=== PATIENT | female | born 1995 | race Hispanic/Latino ===

== ENCOUNTER 2020-12-31 06:17 | Outpatient (CLI) | payer OTHER, MEDICAID, SELFPAY ==
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
== END 2020-12-31 07:02 | disposition home or self-care (01) ==
LOC: LABOR 06:49 → OB 01-01 14:49
PROVIDERS: Referring Provider Specialist; Visit Provider Specialist
DX: O26.893 Other specified pregnancy related conditions, third trimester (principal); R10.10 Upper abdominal pain, unspecified; M54.89 Other dorsalgia; R07.9 Chest pain, unspecified; Z3A.30 30 weeks gestation of pregnancy; V49.9XXD Car occupant (driver) (passenger) injured in unspecified traffic accident, subsequent encounter
CPT/HCPCS: 59025; G0378; G0379

== ENCOUNTER 2020-12-31 06:52 | Emergency (ER) | payer OTHER, MEDICAID, SELFPAY ==
[2020-12-31 06:57] VITALS: BP 121/59; PULSE 89; O2SAT 98
[2020-12-31 07:00] VITALS: BP 121/59; PULSE 87; PULSE 90; RESP 24; TEMP 36.4; O2SAT 97; O2SAT 98; BMI 30.9
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
[2020-12-31] MEDS: MAG HYDROX/ALUMINUM/SIMETH SUS 20 ML, LIDOCAINE VISCOUS 2% 15 ML PO (07:10)
[2020-12-31] MEDS: PANTOPRAZOLE 40 MG VIAL IV (07:11)
[2020-12-31 07:30] VITALS: PULSE 77; O2SAT 96
[2020-12-31 07:34] LABS: Add Manual Diff / Slide Review NO; Basophils Absolute Auto 0 /uL (0-100); Basophils Percent Auto 0.5 % (0-2); Eosinophils Absolute Auto 100 /uL (0-450); Eosinophils Percent Auto 1.3 % (2-4); Hematocrit 32.5 % (36-46); Hemoglobin 11.2 g/dL (12.0-16.0); Lymphocytes Absolute Auto 1600 /uL (1100-4500); Lymphocytes Percent Auto 16.7 % (25-40); Mean Corpuscular HGB Conc 34.6 % (30-36); Mean Corpuscular Hemoglobin 29.8 PG (26-34); Mean Corpuscular Volume 86.2 fL (80-100); Monocytes Absolute Auto 600 /uL (0-900); Neutrophils Absolute Auto 7200 /uL (1500-7000); Neutrophils Percent Auto 75.5 % (50-75); Platelet Count 231 X10^3/uL (150-400); Red Blood Cell Count 3.77 X10^6/uL (4.0-5.2); Red Cell Distribution Width 12.8 % (11.6-14.8); White Blood Cell Count 9.5 X10^3/uL (4.5-11.0)
[2020-12-31 07:47] LABS: Alanine Aminotransferase 39 IU/L (<35); Albumin 3.7 g/dL (3.5-5.0); Albumin Globulin Ratio 1.2 (1.0-2.8); Alkaline Phosphatase 81 U/L (38-126); Aspartate Aminotransferase 112 IU/L (14-36); BUN Creatinine Ratio 11.6 (6-22); Bilirubin Total 0.5 mg/dL (0.2-1.3); Blood Urea Nitrogen 5 mg/dL (7-17); Carbon Dioxide 24 mmol/L (22-32); Chloride 104 mmol/L (98-107); Estimated Glomerular Filt Rate > 60.0 mL/min (>60); Glucose 100 mg/dL (70-100); HEMOLYSIS < 15 (0-50); Lipase 95 U/L (23-300); Potassium 3.6 mmol/L (3.4-5.1); Sodium 134 mmol/L (137-145); Total Protein 6.7 g/dL (6.3-8.2)
--- NOTE | 2020-12-31 07:52 | DI.US.S_ITS ---
PROCEDURE: US ABDOMEN LIMITED INDICATIONS: RIGHT UPPER QUADRANT PAIN TECHNIQUE: Real-time focused scanning was performed of the abdomen, with image documentation. COMPARISON: None. FINDINGS: The liver is normal in size and demonstrates no focal lesions. There is a mobile 7 mm gallstone seen. The gallbladder wall is not thickened, measuring 3 mm or less. No specific pericholecystic fluid is seen. The sonographic De Souza sign is negative. There is no biliary dilatation, the common bile duct measures 4 mm. No significant pancreatic abnormality is seen on these images. This patient is , with a measured heart rate of 124 beats per minute. IMPRESSION: A single mobile gallstone is seen, yet without additional sonographic signs of cholecystitis. Negative for biliary dilatation. Please correlate with physical examination findings, patient presentation, and laboratory values. Dictated by: Santi Nieves M.D. on 12/31/2020 at 8:03 Approved by: Santi Nieves M.D. on 12/31/2020 at 8:03
[2020-12-31 08:00] VITALS: PULSE 73; O2SAT 98
[2020-12-31 08:30] VITALS: PULSE 75; O2SAT 97
[2020-12-31 09:56] VITALS: BP 111/59; PULSE 85; RESP 18; O2SAT 96
== END 2020-12-31 09:58 | disposition home or self-care (01) ==
PROVIDERS: Emergency Provider Emergency Medicine
DX: O99.613 Diseases of the digestive system complicating pregnancy, third trimester (principal); K80.20 Calculus of gallbladder without cholecystitis without obstruction; Z3A.30 30 weeks gestation of pregnancy
CPT/HCPCS: 36415; 59025; 76705; 80053; 83690; 85025; 93005; 96374; 99284; G0378; C9113; G0379

== ENCOUNTER 2022-10-16 17:23 | Inpatient (IN) | payer OTHER, MEDICAID, SELFPAY ==
[2022-10-16] VITALS (13 sets, daily range): BP systolic 115–117; BP diastolic 73–85; PULSE 108–135; RESP 18–24; TEMP 36.6; O2SAT 91–100; BMI 25.1
[2022-10-16] MEDS: ONDANSETRON 4 MG/2 ML INJ IV ×2 (17:57→21:01)
--- NOTE | 2022-10-16 18:15 | DI.CT.S_ITS ---
PROCEDURE: CT ABDOMEN PELVIS W CON INDICATIONS: pain distended TECHNIQUE: After the administration of intravenous contrast, axial sections acquired from the lung bases to the pubic symphysis. Coronal and sagittal reformats were performed. For radiation dose reduction, the following was used: automated exposure control, adjustment of mA and/or kV according to patient size. COMPARISON: None. FINDINGS: Image quality: Good Lower chest: No basal consolidations or effusions. Nonspecific distal esophageal wall thickening. Solid organs: Perfusion heterogeneity of the liver. Cholelithiasis. Gallbladder is mildly distended. No pathologic dilation of the biliary tree or pancreatic duct. No splenomegaly. No adrenal nodules. No hydronephrosis. Vessels and lymph nodes: The main portal vein is somewhat compressed, but likely patent. There are indeterminate borderline retroperitoneal lymph nodes. Bowel and peritoneum: No bowel obstruction. There is serosal thickening. The bowel appears adhesed to the mesenteric root. There is ascites with peritoneal thickening and suspected omental caking. The gastric wall is thickened. Body wall: Unremarkable Pelvis: Prominent appearance of the bilateral ovaries. Uterus is unremarkable. Prominent Whit adnexal vessels. Bones: No acute or suspicious osseous finding. IMPRESSION: Ascites, peritoneal thickening, and suspected omental caking suspicious for peritoneal spread of a GI or adenocarcinoma. Moderate gastric wall thickening. Possible serosal bowel implants. Bowel is adhesed to the mesenteric root, without acute obstruction at this time. There also prominent appearance of the bilateral ovaries, which may be physiologic, with differential including Krukenberg deposits in this clinical context. Cholelithiasis. Mildly distended gallbladder. Consider ultrasound correlation. Dictated by: Glenn Gaines M.D. on 10/16/2022 at 20:22 Approved by: Glenn Gaines M.D. on 10/16/2022 at 20:31
[2022-10-16 18:17] LABS: Add Manual Diff / Slide Review NO; Basophils Absolute Auto 0 /uL (0-100); Basophils Percent Auto 0.5 % (0-2); Eosinophils Absolute Auto 0 /uL (0-450); Eosinophils Percent Auto 0.4 % (2-4); Hematocrit 37.2 % (36-46); Hemoglobin 12.1 g/dL (12.0-16.0); Lymphocytes Absolute Auto 900 /uL (1100-4500); Lymphocytes Percent Auto 10.1 % (25-40); Mean Corpuscular HGB Conc 32.5 % (30-36); Mean Corpuscular Hemoglobin 23.8 PG (26-34); Mean Corpuscular Volume 73.5 fL (80-100); Monocytes Absolute Auto 500 /uL (0-900); Monocytes Percent Auto 5.3 % (3-14); Neutrophils Absolute Auto 7400 /uL (1500-7000); Neutrophils Percent Auto 83.7 % (50-75); Platelet Count 436 X10^3/uL (150-400); Red Blood Cell Count 5.06 X10^6/uL (4.0-5.2); Red Cell Distribution Width 14.5 % (11.6-14.8); White Blood Cell Count 8.8 X10^3/uL (4.5-11.0)
[2022-10-16 18:20] LABS: Alanine Aminotransferase 26 IU/L (<35); Albumin Globulin Ratio 1.2 (1.0-2.8); Alkaline Phosphatase 108 U/L (38-126); Aspartate Aminotransferase 29 IU/L (14-36); Bilirubin Total 0.8 mg/dL (0.2-1.3); Blood Urea Nitrogen 9 mg/dL (7-17); Calcium 9.2 mg/dL (8.4-10.2); Carbon Dioxide 22 mmol/L (22-32); Chloride 97 mmol/L (98-107); Estimated Glomerular Filt Rate > 60 mL/min (>60); Globulin 3.4 g/dL (1.7-4.1); Glucose 107 mg/dL (70-100); HEMOLYSIS < 15 (0-50); Lipase 202 U/L (23-300); Potassium 3.5 mmol/L (3.4-5.1); Sodium 135 mmol/L (137-145); Total Protein 7.4 g/dL (6.3-8.2)
[2022-10-16] MEDS: MORPHINE 2 MG/ML INJ IV ×3 (18:20→23:30)
[2022-10-16 18:21] LABS: Lactate (Lactic Acid) 0.9 mmol/L (0.7-2.1)
[2022-10-16 18:24] LABS: Pregnancy Test Serum,Qual Negative (Negative)
--- NOTE | 2022-10-16 18:27 | ED_ITS ---
HPI - Abdominal Pain General Chief Complaint: Abdominal Pain Stated Complaint: ABD pain, SOB Time Seen by Provider: 10/16/22 18:09 Source: patient Mode of arrival: Ambulatory History of Present Illness HPI narrative: Patient is a healthy 27-year-old female who presents with abdominal pain ongoing for the last 2 months. She says that she is been seen at the [facility] and ever it numerous times she is been put on Dulcolax and Senokot along with Carafate and Zofran. She says over last 5 days she is been unable to work her abdominal pain is getting worse. She says she is lost over 20 lb in last 2 months because she can not eat. She is drinking fluids Pedialyte Gatorade and water however food makes her extremely nauseous. She is sometimes having bowel movements sometimes not her abdomen is she is getting increasingly more d istended and painful. She denies any fever or chills. She sometimes feels like she is short of breath due to the pain. She is no prior surgeries. She denies any chance of . Related Data Home Medications Medication Instructions Recorded Confirmed docusate sodium 100 mg capsule 100 mg PO BID 10/16/22 10/16/22 ondansetron HCl 4 mg tablet 4 mg PO Q8H 10/16/22 10/16/22 sennosides 8.6 mg tablet (senna) 8.6 mg PO DAILY 10/16/22 10/16/22 sucralfate 1 gram tablet 1 g PO 4XD 10/16/22 10/16/22 Allergies Allergy/AdvReac Type Severity Reaction Status Date / Time No Known Drug Allergies Allergy Verified 10/16/22 17:29 Review of Systems Review of Systems ROS Unobtainable: All systems reviewed & are unremarkable except as noted in HPI and below Patient History Medical History Healthy adult Social History Smoking Status: Former smoker Smoking Status: Former smoker tobacco type: vaping Substance Use Type: does not use Exam Initial Vital Signs Initial Vital Signs: Vital Signs Temperature 98 F 10/16/22 17:29 Pulse Rate 135 H 10/16/22 17:29 Respiratory Rate 18 10/16/22 17:29 Blood Pressure 116/85 10/16/22 17:29 Pulse Oximetry 100 10/16/22 17:29 Oxygen Delivery Method 10/16/22 17:29 GENERAL: Alert 27-year-old female appears uncomfortable HEENT: Head atraumatic,EOMI, pupils reactive, face symmetric, moist mucous membranes CARDIOVASCULAR: Tachycardic regular RESPIRATORY: Breath sounds equal bilaterally, no wheezes rales or rhonchi. ABDOMEN: Distended diffusely tender all over including epigastric region and lower abdominal EXTREMITIES: Normal range of motion, no clubbing or edema. Neurovascularly intact NEUROLOGICAL: Alert and oriented x4.Normal gait and speech. SKIN: Warm, dry, no laceration, no petechiae, no rashes or lesions. Course Orders Ordered: ED Orders 10/16/22 17:41 EKG-12 Lead Stat 10/16/22 17:50 Alpha Fetoprotein Stat CEA [Carcinoembryonic Antigen] Stat Cancer (Carbohydrate) Ag 19-9 Stat Cancer Antigen 125 Stat Complete Blood Count AUTO DIFF Stat Comprehensive Metabolic Panel Stat Lactate (Lactic Acid) Stat Lipase Stat Test Serum,Qual Stat 10/16/22 18:15 CT abdomen pelvis w con Stat 10/16/22 20:20 Ictotest Urine Stat Urinalysis and Microscopic Stat Hydromorphone HCl (Hydromorphone 1 Mg Inj) 1 mg IV Q4H PRN PRN Reason: Pain, Severe (7-10) Dextrose/Sodium Chloride (Dextrose 5%-0.9% Ns) 1,000 mls @ 60 mls/hr IV CONT HANNAH Last Admin: 10/16/22 23:55 Dose: 60 mls/hr Documented By: RICHARD Naloxone HCl (Naloxone 0.4 Mg/Ml Vial) 0.2 mg IV Q2MIN PRN PRN Reason: Opiate Reversal Ondansetron HCl (Ondansetron 4 Mg Odt) 4 mg PO NOW PRN PRN Reason: Nausea And Vomiting Ondansetron HCl (Ondansetron 4 Mg/2 Ml Inj) 4 mg IV NOW PRN PRN Reason: Nausea And Vomiting Last Admin: 10/16/22 17:57 Dose: 4 mg Documented By: SELAM Ondansetron HCl (Ondansetron 4 Mg/2 Ml Inj) 4 mg IV Q4HR PRN PRN Reason: Nausea And Vomiting Oxycodone HCl (Oxycodone Ir 10 Mg Tablet) 10 mg PO Q3H PRN PRN Reason: Pain, Severe (7-10) Oxycodone HCl (Oxycodone Ir 5 Mg Tablet) 5 mg PO Q3H PRN PRN Reason: Pain, Moderate (4-6) Discontinued Medications Morphine Sulfate (Morphine 2 Mg/Ml Inj) 2 mg IV NOW ONE Stop: 10/16/22 18:16 Last Admin: 10/16/22 18:20 Dose: 2 mg Documented By: RICK Morphine Sulfate (Morphine 2 Mg/Ml Inj) 2 mg IV NOW ONE Stop: 10/16/22 20:55 Last Admin: 10/16/22 21:02 Dose: 2 mg Documented By: RICHARD Morphine Sulfate (Morphine 2 Mg/Ml Inj) 2 mg IV NOW ONE Stop: 10/16/22 23:25 Last Admin: 10/16/22 23:30 Dose: 2 mg Documented By: RICHARD Ondansetron HCl (Ondansetron 4 Mg/2 Ml Inj) 4 mg IV NOW ONE Stop: 10/16/22 20:57 Last Admin: 10/16/22 21:01 Dose: 4 mg Documented By: RICHARD Vital Signs Vital signs: Vital Signs - 8 hr 10/16/22 18:08 10/16/22 18:08 10/16/22 18:36 Pulse Rate 121 H 115 H Respiratory Rate 24 Blood Pressure 116/83 Pulse Oximetry 100 100 Oxygen Delivery Method Room Air 10/16/22 19:00 10/16/22 19:05 10/16/22 19:05 Pulse Rate 120 H 116 H Respiratory Rate 24 Blood Pressure 117/73 Pulse Oximetry 100 100 Oxygen Delivery Method Room Air 10/16/22 19:30 10/16/22 19:30 10/16/22 21:00 Pulse Rate 112 H 108 H Respiratory Rate Blood Pressure 117/81 Pulse Oximetry 100 91 Oxygen Delivery Method 10/16/22 21:07 10/16/22 21:07 10/16/22 21:30 Pulse Rate 117 H 118 H Respiratory Rate Blood Pressure 115/76 Pulse Oximetry 100 100 Oxygen Delivery Method MDM - Abdominal Pain Lab Data 10/16/22 17:50 10/16/22 17:50 Labs: Lab Results 10/16/22 10/16/22 10/16/22 Range/Units 17:50 17:50 17:50 WBC 8.8 (4.5-11.0) X10^3/uL RBC 5.06 (4.0-5.2) X10^6/uL Hgb 12.1 (12.0-16.0) g/dL Hct 37.2 (36-46) % MCV 73.5 L (80-100) fL MCH 23.8 L (26-34) PG MCHC 32.5 (30-36) % RDW 14.5 (11.6-14.8) % Plt Count 436 H (150-400) X10^3/uL Neut % (Auto) 83.7 H (50-75) % Lymph % (Auto) 10.1 L (25-40) % [place] % (Auto) 5.3 (3-14) % Eos % (Auto) 0.4 L (2-4) % Baso % (Auto) 0.5 (0-2) % Neut # (Auto) 7400 H (7911-1021) /uL Lymph # (Auto) 900 L (1352-8887) /uL [place] # (Auto) 500 (0-900) /uL Eos # (Auto) 0 (0-450) /uL Baso # (Auto) 0 (0-100) /uL Sodium 135 L (137-145) mmol/L Potassium 3.5 (3.4-5.1) mmol/L Chloride 97 L (98-107) mmol/L Carbon Dioxide 22 (22-32) mmol/L BUN 9 (7-17) mg/dL Creatinine 0.60 (0.52-1.04) mg/dL Estimated GFR > 60 (>60) mL/min BUN/Creatinine Ratio 15.0 (6-22) Glucose 107 H (70-100) mg/dL Lactate 0.9 (0.7-2.1) mmol/L Calcium 9.2 (8.4-10.2) mg/dL Total Bilirubin 0.8 (0.2-1.3) mg/dL AST 29 (14-36) IU/L ALT 26 (<35) IU/L Alkaline Phosphatase 108 (38-126) U/L Total Protein 7.4 (6.3-8.2) g/dL Albumin 4.0 (3.5-5.0) g/dL Globulin 3.4 (1.7-4.1) g/dL Albumin/Globulin Ratio 1.2 (1.0-2.8) Lipase 202 (23-300) U/L Carcinoembryonic Ag (0.1-3.0) ng/mL CA 125 Antigen (0-35) U/mL Serum , Qual (Negative) Urine Color Urine Appearance Urine pH (4.5-8.0) Ur Specific [place] (1.000-1.035) Urine Protein (Negative) Urine Glucose (UA) (Negative) g/dL Urine Ketones (NEGATIVE) Urine Occult Blood (Negative) Urine Nitrate (Negative) Urine Bilirubin (NEGATIVE) Ur Bilirubin Confirm (Negative) Urine Urobilinogen (0.2) E.U./dL Ur Leukocyte Esterase (NEGATIVE) Urine RBC (0-5/HPF) Urine WBC (0-5/HPF) Ur Squamous Epith Cells (0-5/HPF) Urine Bacteria (None) Ur Culture Indicated? 10/16/22 10/16/22 10/16/22 Range/Units 17:50 17:50 20:20 WBC (4.5-11.0) X10^3/uL RBC (4.0-5.2) X10^6/uL Hgb (12.0-16.0) g/dL Hct (36-46) % MCV (80-100) fL MCH (26-34) PG MCHC (30-36) % RDW (11.6-14.8) % Plt Count (150-400) X10^3/uL Neut % (Auto) (50-75) % Lymph % (Auto) (25-40) % [place] % (Auto) (3-14) % Eos % (Auto) (2-4) % Baso % (Auto) (0-2) % Neut # (Auto) (6889-9060) /uL Lymph # (Auto) (7446-4044) /uL [place] # (Auto) (0-900) /uL Eos # (Auto) (0-450) /uL Baso # (Auto) (0-100) /uL Sodium (137-145) mmol/L Potassium (3.4-5.1) mmol/L Chloride (98-107) mmol/L Carbon Dioxide (22-32) mmol/L BUN (7-17) mg/dL Creatinine (0.52-1.04) mg/dL Estimated GFR (>60) mL/min BUN/Creatinine Ratio (6-22) Glucose (70-100) mg/dL Lactate (0.7-2.1) mmol/L Calcium (8.4-10.2) mg/dL Total Bilirubin (0.2-1.3) mg/dL AST (14-36) IU/L ALT (<35) IU/L Alkaline Phosphatase (38-126) U/L Total Protein (6.3-8.2) g/dL Albumin (3.5-5.0) g/dL Globulin (1.7-4.1) g/dL Albumin/Globulin Ratio (1.0-2.8) Lipase (23-300) U/L Carcinoembryonic Ag < 0.3 (0.1-3.0) ng/mL CA 125 Antigen 310 H (0-35) U/mL Serum , Qual Negative (Negative) Urine Color Red Urine Appearance Sl cloudy Urine pH 7.0 (4.5-8.0) Ur Specific [place] <=1.005 (1.000-1.035) Urine Protein Negative (Negative) Urine Glucose (UA) Negative (Negative) g/dL Urine Ketones 2+ H (NEGATIVE) Urine Occult Blood 3+ H (Negative) Urine Nitrate Negative (Negative) Urine Bilirubin 1+ H (NEGATIVE) Ur Bilirubin Confirm Negative (Negative) Urine Urobilinogen 1.0 (0.2) E.U./dL Ur Leukocyte Esterase Negative (NEGATIVE) Urine RBC 30-100/hpf H (0-5/HPF) Urine WBC None seen (0-5/HPF) Ur Squamous Epith Cells None seen (0-5/HPF) Urine Bacteria None seen (None) Ur Culture Indicated? Cult not indicated Point of care testing: Urine Dip Bedside Urine Glucose Negative Bedside Urine Bilirubin - Negative Bedside Urine Ketone + 15 Urine Specific [place] 1.005 Bedside Urine Occult Blood +++ Bedside Urine pH 6.5 Bedside Urine Protein +/- 15 Bedside Urine Urobilinogen - Negative Bedside Urine Nitrite - Negative Bedside Urine Leukocytes - Negative Esterase Imaging Data CT scan - abdomen/pelvis: Radiologist's Impression: CT Scan Report Signed Patient: Niecy Laguerre MR#: [id number] : 1995 Acct:[id number] Age/Sex: 27 / F Date of Service: 10/16/22 Loc: ED Accession Number: [id number] ?? Procedure: CT abdomen pelvis w con Ordering Provider: Charu Ko D.O. PROCEDURE:? CT ABDOMEN PELVIS W CON ? INDICATIONS:? pain distended ? TECHNIQUE:? After the administration of intravenous contrast, axial sections acquired from the lung bases to the pubic symphysis.? Coronal and sagittal reformats were performed.? For radiation dose reduction, the following was used:? automated exposure control, adjustment of mA and/or kV according to patient size.? ? COMPARISON:? None. ? FINDINGS:? Image quality:? Good ? Lower chest:? No basal consolidations or effusions.? Nonspecific distal esophageal wall thickening. ? Solid organs:? Perfusion heterogeneity of the liver.? Cholelithiasis.? Gallbladder is mildly distended.? No pathologic dilation of the biliary tree or pancreatic duct.? No splenomegaly.? No adrenal nodules.? No hydronephrosis. ? Vessels and lymph nodes:? The main portal vein is somewhat compressed, but likely patent. ?There are indeterminate borderline retroperitoneal lymph nodes. ? Bowel and peritoneum:? No bowel obstruction.? There is serosal thickening.? The bowel appears adhesed to the mesenteric root.? There is ascites with peritoneal thickening and suspected omental caking.? The gastric wall is thickened. ? Body wall:? Unremarkable ? Pelvis:? Prominent appearance of the bilateral ovaries.? Uterus is unremarkable.? Prominent Whit adnexal vessels. ? Bones:? No acute or suspicious osseous finding.? ? ? IMPRESSION:? Ascites, peritoneal thickening, and suspected omental caking suspicious for peritoneal spread of a GI or adenocarcinoma.? Moderate gastric wall thickening.? Possible serosal bowel implants.? Bowel is adhesed to the mesenteric root, without acute obstruction at this time.? There also prominent appearance of the bilateral ovaries, which may be physiologic, with differential including Krukenberg deposits in this clinical context.? ? Cholelithiasis.? Mildly distended gallbladder.? Consider ultrasound correlation.? ? Dictated by: Glenn Gaines M.D. on 10/16/2022 at 20:22 ? ? Approved by: Glenn Gaines M.D. on 10/16/2022 at 20:31 ? ECG Data Interpretation: Sinus tachycardia rate 108 persistent T-wave inversion in lead 3 seen on previous EKG no ST changes no Q-waves MDM Narrative Medical decision making narrative: Patient 27-year-old healthy female presents ongoing abdominal pain worsening distension she is very tender on exam in tachycardic. Blood work is surprisingly within normal limits without leukocytosis or elevated lactate. CT however is certainly concerning for or GI adenocarcinoma and omental caking. The patient also reports that she has had bilateral breast lumps that are tender to touch she had an abnormal mammogram and is scheduled for further evaluation this. She reports that dad of some sort of gastric cancer at the age of 45. She is given 1 L of IV fluids and pain medication she remains persistently tachycardic, she is not really tolerating food. She also has pretty poor follow-up she is been going to a clinic which has been unable to schedule her or get the appropriate tests. Dr. Buenrostro on-call surgery updated on patient's symptoms and test results agrees that patient should be brought in for fluid resuscitation and pain control. Nothing surgical at this time but does suggest diagnostic and therapeutic paracentesis which may be helpful. He is happy to consult and will contact Oncology in the morning. Agrees with adding cancer markers Akila Stallworth updated on patient's test results and symptoms and kindly accept CA 125 is greater than 300 will CEA is undetectable. Other markers are pending and send out. Long discussion with patient she is a mother of a 6-year-old and 1-year-old she is good support from her brother and [id number] she is given resources Discharge Plan Departure Patient Disposition: Admitted as Observation Clinical Impression: Ascites, malignant, Intractable abdominal pain Admit Date/Time: 10/16/22 22:30 Admit Provider: Akila Stallworth
[2022-10-16 21:19] LABS: Appearance Urine UA SL CLOUDY; Bilirubin Urine UA 1+ (NEGATIVE); Color Urine UA RED; Glucose Urine UA NEGATIVE (Negative); Ketones Urine UA 2+ (NEGATIVE); Leukocyte Esterase Urine UA NEGATIVE (NEGATIVE); Nitrite Urine UA NEGATIVE (Negative); Occult Blood Urine UA 3+ (Negative); Protein Urine UA NEGATIVE (Negative); Specific Gravity Urine UA <=1.005 (1.000-1.035)
[2022-10-16 21:22] LABS: Ictotest Urine Negative (Negative)
[2022-10-16 21:23] LABS: Bacteria Urine None Seen; Culture Indicated Urine Cult Not Indicated; RBC Urine 30-100/HPF (0-5/HPF); Squamous Epithelial Cell Urine None Seen (0-5/HPF); WBC Urine None Seen (0-5/HPF)
[2022-10-16 22:28] LABS: Cancer Antigen 125 310 U/mL (0-35)
[2022-10-16 22:36] LABS: Carcinoembryonic Antigen < 0.3 ng/mL (0.1-3.0)
--- NOTE | 2022-10-16 23:34 | DI.US.S_ITS ---
PROCEDURE: US ABDOMEN COMPLETE INDICATIONS: Acute abdominal pain, ascites, peritoneal thickening, possCA TECHNIQUE: Real-time scanning was performed of the abdominal and retroperitoneal organs, with image documentation. COMPARISON: [facility], US, US PELVIC COMPLETE, 10/17/2022, 7:25. [facility], CT, CT ABDOMEN PELVIS W CON, 10/16/2022, 18:29. . [facility], US, US ABDOMEN LIMITED, 12/31/2020, 8:32. FINDINGS: Liver: By overlying bowel gas. Liver is normal in size and homogeneous in echotexture. Gallbladder: There is a potential mass seen within the lumen of the gallbladder that measures 3 x 0.7 x 1.2 cm. This does not layer dependently and does not appear mobile. No abnormal vascularity can be seen. There is also a moderate amount of sludge seen. A mobile gallstone can be seen that measures up to 1 cm. The gallbladder wall is not thickened, measuring 3 mm or less. No specific pericholecystic fluid is seen. The sonographic De Souza sign is negative. Biliary ducts: Intrahepatic bile ducts are non-dilated. Extrahepatic bile duct caliber measures 4 mm. Normal is 6-7 mm or less in diameter, or 10 mm or less post-cholecystectomy. Pancreas: The pancreas is not well seen. Spleen: Spleen is normal in size and homogeneous in echotexture. Kidneys: Kidneys are normal in size and echotexture. Right kidney measures 9.9 cm long; left kidney measures 11.6 cm long. No hydronephrosis or nephrolithiasis. No solid masses. Aorta: Visualized aorta is normal in caliber at less than 3 cm. Iliacs: Not well seen. IVC: Intrahepatic inferior vena cava is patent. Miscellaneous: There is a moderate amount of ascites seen, with apparent omental caking. IMPRESSION: Moderate amount ascites, with apparent omental caking, which is consistent with the given history and prior imaging. A potential gallbladder mass can be seen. Differential diagnosis includes an unusual sludge ball, however. In addition to this potential gallbladder mass, there is a mobile gallstone and mobile sludge Dictated by: Santi Nieves M.D. on 10/17/2022 at 8:43 Approved by: Santi Nieves M.D. on 10/17/2022 at 8:46
--- NOTE | 2022-10-16 23:40 | PM.HP.1 ---
History of Present Illness History of Present Illness Date Patient Seen: 10/16/22 Time Patient Seen: 23:41 Chief complaint: ABD pain, SOB Narrative: Niecy Woo is a klaus 27-year-old female with no medical history, medications, or surgical procedures. Approximately 2 months ago the patient began to have increasing abdominal pain and discomfort difficulty eating, she was seen several times at [facility] ever and was treated for constipation. The patient has had a decreased appetite, has significant pain with eating has lost 25 lb in 2 months occasional shortness of breath, increased fatigue, increasing abdominal distention, notes that she now wakes with abdominal pain every day an average of 6/10 it is constant it worsens whenever she tries to eat in the epigastric area with burning which then radiates to her back she has also developed low back pain. She notes that she has 1-2 small bowel movements possibly every 1-2 days. She says over last 5 days she is been unable to work her abdominal pain is getting worse. She is drinking fluids Pedialyte Gatorade and water however food makes her extremely nauseous.? She notes her abdomen is she is getting increasingly more distended and painful 10/ which brought her in today. The patient also notes that she had an abnormal mammogram and is in the process of being scheduled for multiple breast biopsies. Patient notes that her father of stomach cancer at the age of 43, 2 of her aunts have had cancer but are still living she is unsure as to the type. Patient is a single mother with 2 daughters 5-year-old and 1-year-old, and lives with her mother, brother and 2 children. Patient states that she vaped for approximately 2 years and quit 3 months ago she drinks only socially occasionally, denies any recreational substance use, patient has not traveled, has not had exposure to illness, has not had any new medications other than the treatments for constipation. She denies dysphagia, diarrhea, melena,, urgency dysuria polyuria hematuria, fever, body aches, chills, vomiting, diaphoresis, denies any leg edema, chest pain, irregular heart rate, palpitations, syncope, weakness, numbness, tingling, any changes to skin, breast discharge, any recent illness injury or trauma. At admit temp 98?, 115/76, 118, 24, O2 saturation 100% on room air. Patient has continued to be in sinus tach EKG was at a rate of [address] changes. Patient's only laboratory findings neutrophils 7400, MCV 73.5, MCH 23.8, platelets 436, patient's urine was positive for ketones, occult blood, RBC, lactate was negative, hCG was negative. ABD/Pelvis CT:Ascites, peritoneal thickening, and suspected omental caking suspicious for peritoneal spread of a GI or adenocarcinoma.? Moderate gastric wall thickening.? Possible serosal bowel implants.? Bowel is adhesed to the mesenteric root, without acute obstruction at this time.? There also prominent appearance of the bilateral ovaries, Cholelithiasis.? Mildly distended gallbladder.? Patient admitted for acute abdominal pain Patient History Medical History Healthy adult Comment: None Family & Social History Family History Father Cancer Aunt Cancer Safety & Behavioral: Feels Safe in Current Yes Environment Been Physically Hurt or No Threatened By a Person Tobacco & Substance use: Smoking Status Former smoker vape x 2 yrs, quit 09/2022 Alcohol use socially/occasionally Substance Use Type does not use Meds Home Medications and Allergies Home Medications Medication Instructions Recorded Confirmed Type docusate sodium 100 mg capsule 100 mg PO BID 10/16/22 10/16/22 History ondansetron HCl 4 mg tablet 4 mg PO Q8H 10/16/22 10/16/22 History sennosides 8.6 mg tablet (senna) 8.6 mg PO DAILY 10/16/22 10/16/22 History sucralfate 1 gram tablet 1 g PO 4XD 10/16/22 10/16/22 History Allergies Allergy/AdvReac Type Severity Reaction Status Date / Time No Known Drug Allergies Allergy Verified 10/16/22 17:29 Review of Systems Review of Systems Narrative: All 12 point systems reviewed with the patient and are negative except otherwise documented. Exam Vital Signs (past 8 hours): - 10/16/22 17:29 10/16/22 18:08 10/16/22 18:08 Temperature 98 F Pulse Rate 135 H 121 H Respiratory Rate 18 24 Blood Pressure 116/85 116/83 Pulse Oximetry 100 100 Oxygen Delivery Method Room Air Room Air 10/16/22 18:36 10/16/22 19:00 10/16/22 19:05 Temperature Pulse Rate 115 H 120 H Respiratory Rate 24 Blood Pressure 117/73 Pulse Oximetry 100 100 Oxygen Delivery Method Room Air 10/16/22 19:05 10/16/22 19:30 10/16/22 19:30 Temperature Pulse Rate 116 H 112 H Respiratory Rate Blood Pressure 117/81 Pulse Oximetry 100 100 Oxygen Delivery Method 10/16/22 21:00 10/16/22 21:07 10/16/22 21:07 Temperature Pulse Rate 108 H 117 H Respiratory Rate Blood Pressure 115/76 Pulse Oximetry 91 100 Oxygen Delivery Method 10/16/22 21:30 Temperature Pulse Rate 118 H Respiratory Rate Blood Pressure Pulse Oximetry 100 Oxygen Delivery Method Oxygen Delivery Method Room Air Narrative Exam Narrative: General: Patient is a klaus well-developed, well-nourished female, in no acute distress at this time. post pain medication. HEENT: Normocephalic, atraumatic, extraocular muscles intact, oral pharynx is clear and mucous membranes are moist. Neck is supple and symmetric, trachea is midline, no adenopathy, no thyroid enlargement, nontender, no masses palpated. Negative for JVD Chest: Normal AP diameter and contour without kyphoscoliosis, no nasal flaring, retractions, or tachypneic labored breathing Lungs: Auscultation of all lung jerry are clear without adventitious sounds, wheezes, rhonchi, or rales. Cardio: Tachycardic regular rate and rhythm without murmur, rubs, or gallops, no carotid bruit, no cardiac pulsations present. Abdomen: Abdomen is distended, tender to palpation, noted fluid wave. I was unable to hear Bowel sounds, no further assessment at this time for patient's comfort. Musculoskeletal: Muscle strength and tone are equal within normal limits, no deformity, crepitus, effusions, cyanosis, clubbing or edema present. Full range of motion intact radial and pedal pulses are normal. Skin: Warm dry and intact without rashes, ulcerations or petechiae. Neuro: Alert and orientated x3, strength is +5/5 in all extremities, sensation to touch intact, no gross deficits noted of cranial nerves. Psych: Patient has a well-kept appearance, appropriate affect, mental status attitude thought context and judgment are appropriate for age. Objective Labs 10/16/22 17:50 10/16/22 17:50 Labs: Laboratory Results - last 24 hr 10/16/22 10/16/22 10/16/22 17:50 17:50 17:50 WBC 8.8 RBC 5.06 Hgb 12.1 Hct 37.2 MCV 73.5 L MCH 23.8 L MCHC 32.5 RDW 14.5 Plt Count 436 H Neut % (Auto) 83.7 H Lymph % (Auto) 10.1 L [place] % (Auto) 5.3 Eos % (Auto) 0.4 L Baso % (Auto) 0.5 Neut # (Auto) 7400 H Lymph # (Auto) 900 L [place] # (Auto) 500 Eos # (Auto) 0 Baso # (Auto) 0 Sodium 135 L Potassium 3.5 Chloride 97 L Carbon Dioxide 22 BUN 9 Creatinine 0.60 Estimated GFR > 60 BUN/Creatinine Ratio 15.0 Glucose 107 H Lactate 0.9 Calcium 9.2 Total Bilirubin 0.8 AST 29 ALT 26 Alkaline Phosphatase 108 Total Protein 7.4 Albumin 4.0 Globulin 3.4 Albumin/Globulin Ratio 1.2 Lipase 202 Carcinoembryonic Ag CA 125 Antigen Serum , Qual Urine Color Urine Appearance Urine pH Ur Specific [place] Urine Protein Urine Glucose (UA) Urine Ketones Urine Occult Blood Urine Nitrate Urine Bilirubin Ur Bilirubin Confirm Urine Urobilinogen Ur Leukocyte Esterase Urine RBC Urine WBC Ur Squamous Epith Cells Urine Bacteria Ur Culture Indicated? 10/16/22 10/16/22 10/16/22 17:50 17:50 20:20 WBC RBC Hgb Hct MCV MCH MCHC RDW Plt Count Neut % (Auto) Lymph % (Auto) [place] % (Auto) Eos % (Auto) Baso % (Auto) Neut # (Auto) Lymph # (Auto) [place] # (Auto) Eos # (Auto) Baso # (Auto) Sodium Potassium Chloride Carbon Dioxide BUN Creatinine Estimated GFR BUN/Creatinine Ratio Glucose Lactate Calcium Total Bilirubin AST ALT Alkaline Phosphatase Total Protein Albumin Globulin Albumin/Globulin Ratio Lipase Carcinoembryonic Ag < 0.3 CA 125 Antigen 310 H Serum , Qual Negative Urine Color Red Urine Appearance Sl cloudy Urine pH 7.0 Ur Specific [place] <=1.005 Urine Protein Negative Urine Glucose (UA) Negative Urine Ketones 2+ H Urine Occult Blood 3+ H Urine Nitrate Negative Urine Bilirubin 1+ H Ur Bilirubin Confirm Negative Urine Urobilinogen 1.0 Ur Leukocyte Esterase Negative Urine RBC 30-100/hpf H Urine WBC None seen Ur Squamous Epith Cells None seen Urine Bacteria None seen Ur Culture Indicated? Cult not indicated Assessment & Plan Assessment & Plan narrative: Niecy Woo is a klaus 27-year-old female single mother of 2, who is being admitted for acute abdominal pain, for fluid resuscitation, abdominal ultrasound, paracentesis diagnostic and therapeutic, chest CT, pain control and further workup. As abdominal CT is highly concerning for or GI adenocarcinoma, in addition to her recent abnormal mammogram. Dr. Buenrostro to consult, and will reach out tomorrow to Oncology. 1. Acute abdominal pain, with ascites, and tachycardia, acute, present on admission -suspect adenocarcinoma- aggressive -NPO, D5 NS at 60 cc/HR -No leukocytosis or elevated lactate. Neut 7400, HCG -negative -patient continues to be tachycardic 108-130- tele -aggressive pain management, antiemetics, anxiety control -abdominal and pelvic ultrasound, paracentesis ordered: w/ AFB, culture and smear, cell count, bacteria -Chest CT: regarding abnormal mammogram -alpha fetoprotein-pending -cancer AG 19-9:negative, CA 125: 310 -Blood cultures, procalcitonin, repeat labs in a.m. -Dr. Buenrostro to consult -consult oncology later today. Code status:Full Surrogate decision maker: Brother Giuliano Woo COVNIKOLE PCR:Negative DVT/VTE prophylaxis:no VTE medication-until surgical consult cleared, SCD's only Disposition: I have utilized all available immediate resources to obtain, update, or review the patient's current medications. I confirmed that the patient's advanced care plan is present, Code status is documented and/or surrogate decision maker is listed in the patient's medical record. I have personally reviewed patient's chart notes from PCP, specialists, diagnostic imaging, and laboratory results. Time Spent With Patient Critical Care time: I spent a total of [] minutes of critical care time on this patient's care today; this time is exclusive of procedural time.
[2022-10-16] MEDS: DEXTROSE 5%-0.9% NS 1,000 ML 60 ML IV (23:55)
[2022-10-17] VITALS (31 sets, daily range): BP systolic 108–127; BP diastolic 54–82; PULSE 106–123; RESP 10–26; TEMP 35.7–36.4; O2SAT 96–100; BMI 26.7
--- NOTE | 2022-10-17 01:44 | DI.US.S_ITS ---
PROCEDURE: US PARACENTESIS INDICATIONS: ASCITES TECHNIQUE: The indications, alternatives, benefits, risks, and complications of the procedure were explained to the patient. Written informed consent was obtained and placed in the chart. The abdomen and pelvis were examined sonographically, and an appropriate site was chosen for paracentesis. The skin was prepared and draped in the usual sterile fashion, and 1% lidocaine was infiltrated from the skin down through the peritoneal surface. A 19-gauge catheter-covered needle was then introduced into the peritoneal space, the catheter was advanced and the needle was withdrawn, and thereafter peritoneal fluid was withdrawn. The catheter was then removed and a dressing was applied. The fluid was discarded if the clinician did not order diagnostic testing of the fluid. COMPARISON: [facility], CT, CT ABDOMEN PELVIS W CON, 10/16/2022, 18:29. [facility], US, US ABDOMEN COMPLETE, 10/17/2022, 7:25. [facility], US, US PELVIC COMPLETE, 10/17/2022, 7:25. FINDINGS: Access site: Right lower quadrant Needle: One-Step centesis catheter with introducer needle. Fluid volume and description: yellow and semi clear; 3000 mL Fluid sent for diagnostic testing: Per referring physician Medications: 1% lidocaine for local anaesthesia. Complications: None. IMPRESSION: Successful ultrasound-guided paracentesis. Dictated by: Clare Daigle M.D. on 10/17/2022 at 16:36 Approved by: Clare Daigel M.D. on 10/17/2022 at 16:59
--- NOTE | 2022-10-17 01:46 | DI.CT.S_ITS ---
PROCEDURE: CT ANGIO CHEST INDICATIONS: abdn mammo, r/o lymphedema/carcinoma TECHNIQUE: After the administration of intravenous contrast, 2 mm thick sections acquired from the pulmonary apices to the posterior costophrenic angles. 3-dimensional maximum intensity projection (MIP) coronal and sagittal reformats were then acquired through the thorax. For radiation dose reduction, the following was used: automated exposure control, adjustment of mA and/or kV according to patient size. COMPARISON: None. FINDINGS: Image quality: Excellent. Pulmonary arteries: Pulmonary arteries are normal in size, and demonstrate no intraluminal filling defects to suggest central pulmonary embolism. Lungs and pleura: Lungs are clear. No pleural effusions or pneumothorax. Central and peripheral airways are patent. Mediastinum: Heart size is normal, without pericardial effusion. No mediastinal or hilar adenopathy. Thoracic aorta is normal in caliber and enhancement. Mild diffuse wall thickening of the esophagus and small, air-filled hiatal hernia. Bones and chest wall: No suspicious bony lesions. Ribs and thoracic spine appear intact throughout. Thyroid gland is within normal limits. Numerous nonenlarged left axillary lymph nodes. Normal size and number of right axillary nodes. No supraclavicular mass. Abdomen: Upper abdomen demonstrates a large amount of ascites and thickening of the partially imaged proximal gastric wall. Visible portions of the liver and spleen are within normal limits. IMPRESSION: 1. No pulmonary embolus. 2. No acute pulmonary parenchymal process. 3. Mild circumferential diffuse esophageal wall thickening and partially imaged proximal gastric wall thickening. 4. Partially imaged large volume ascites. 5. Shotty left axillary adenopathy. 6. Final interpretation is concordant with preliminary report. Dictated by: Johanne Melgar M.D. on 10/17/2022 at 9:09 Approved by: Johanne Melgar M.D. on 10/17/2022 at 9:18
--- NOTE | 2022-10-17 01:47 | DI.US.S_ITS ---
PROCEDURE: US PELVIC COMPLETE INDICATIONS: Ascites, carcinoma TECHNIQUE: Real-time scanning was performed of the pelvic organs, with image documentation. Additional endovaginal scanning was necessary due to incomplete visualization of the adnexal and endometrial structures by transabdominal scanning. COMPARISON: [facility], CT, CT ABDOMEN PELVIS W CON, 10/16/2022, 18:29. [facility], US, US ABDOMEN COMPLETE, 10/17/2022, 7:25. FINDINGS: Uterus: Uterus is anteverted and normal in size at 7.7 x 5.3 x 3.7 cm. The myometrium is homogeneous. The endometrium measures 3 mm combined thickness. Ovaries: The right ovary measures 3.7 x 3 x 2.2 cm, with a calculated ovarian volume of 12.6 cc. The left ovary measures 3.6 x 3.3 x 1.8 cm, with a calculated ovarian volume of 11.1 cc. The ovaries have a normal sonographic appearance. Less than 12 follicles can be seen in each ovary. No adnexal masses are seen. Other: Moderate to prominent ascites is seen, with mildly complicated fluid. IMPRESSION: No significant ovarian abnormality is seen. No ovarian masses are seen. Ascites is seen, with mildly complicated fluid. We strive to produce accurate, complete, and clear reports of imaging services. To assist us in improving patient care, this report was composed using standard report templates and voice recognition software. Therefore, it may contain abnormal punctuation, insertions and/or omissions. Occasional wrong-word or sound-alike substitutions may occur. Though we review the report and make efforts to correct it, we do recommend that the report be read carefully in proper context to recognize any text inaccuracies. Dictated by: Santi Nieves M.D. on 10/17/2022 at 8:37 Approved by: Santi Nieves M.D. on 10/17/2022 at 8:39
[2022-10-17] MEDS: OXYCODONE IR 10 MG TABLET PO ×2 (02:38→06:41)
[2022-10-17] MEDS: ONDANSETRON 4 MG/2 ML INJ IV ×2 (02:40→20:08)
[2022-10-17] MEDS: LORazepam 2 MG/ML INJ 0.5 MG IV ×2 (03:00→19:37)
--- NOTE | 2022-10-17 03:25 | PC.NURSE ---
Pt attempted to use the BR, she felt pressure. Pt was unable to void, bladder scan done, 151cc in bladder, pt will attempt again later, IV fluids running at 60ml/hr at this time.
[2022-10-17 08:41] LABS: COVID19 -Nasal RAPID Negative (Negative)
[2022-10-17 09:03] LABS: INR 1.2 (0.9-1.3); Prothrombin Time 13.9 SECONDS (10.1-12.7)
[2022-10-17 09:24] LABS: Procalcitonin 0.05 ng/mL (<0.5)
[2022-10-17] MEDS: SODIUM CHLORIDE 0.9% 1,000 ML 1000 ML IV ×2 (10:52→16:34)
[2022-10-17] MEDS: HYDROMORPHONE 1 MG INJ IV ×3 (10:52→20:08)
[2022-10-17] MEDS: PANTOPRAZOLE 40 MG VIAL IV (11:49)
[2022-10-17] MEDS: OXYCODONE IR 5 MG TABLET 10 MG PO (12:43)
[2022-10-17] MEDS: ONDANSETRON 4 MG ODT PO (16:34)
[2022-10-17 17:02] LABS: Body Fluid Red Blood Cells 3549 /uL; Body Fluid Tot Nucleated Cells 487 /uL
--- NOTE | 2022-10-17 17:20 | PM.CN ---
History of Present Illness Consult details Date Patient Seen: 10/17/22 Time Patient Seen: 17:20 Chief complaint: ABD pain, SOB Narrative: 27-year-old woman admitted last night with severe dehydration, weight loss and weakness with imaging suggestive of a diffuse peritoneal malignant process. She had a paracentesis today. CT also reported some thickening of the gastric wall an esophageal wall. Her tachycardia has improved significantly since receiving IV fluid resuscitation Meds Home Medications and Allergies Home Medications Medication Instructions Recorded Confirmed Type docusate sodium 100 mg capsule 100 mg PO BID 10/16/22 10/16/22 History ondansetron HCl 4 mg tablet 4 mg PO Q8H 10/16/22 10/16/22 History sennosides 8.6 mg tablet (senna) 8.6 mg PO DAILY 10/16/22 10/16/22 History sucralfate 1 gram tablet 1 g PO 4XD 10/16/22 10/16/22 History Allergies Allergy/AdvReac Type Severity Reaction Status Date / Time No Known Drug Allergies Allergy Verified 10/16/22 17:29 Exam Vital Signs (past 8 hours): - 10/17/22 09:30 10/17/22 10:00 10/17/22 10:30 Temperature Pulse Rate 112 H 112 H 117 H Respiratory Rate 11 L 12 12 Blood Pressure Pulse Oximetry 98 99 100 Oxygen Delivery Method Oxygen Flow Rate 10/17/22 11:00 10/17/22 11:30 10/17/22 11:48 Temperature Pulse Rate 113 H 106 H Respiratory Rate 19 15 Blood Pressure 116/75 Pulse Oximetry 100 100 Oxygen Delivery Method Room Air Oxygen Flow Rate 10/17/22 11:48 10/17/22 12:55 10/17/22 13:41 Temperature 97.6 F 96.2 F L Pulse Rate 109 H 107 H Respiratory Rate 20 16 Blood Pressure 121/77 Pulse Oximetry 100 100 Oxygen Delivery Method Room Air Room Air Oxygen Flow Rate 0 Oxygen Delivery Method Room Air Oxygen Flow Rate 0 Const General: cooperative and ill appearing Nutritional Appearance: cachectic Objective Labs 10/16/22 17:50 10/16/22 17:50 Labs: Laboratory Results - last 24 hr 10/16/22 10/16/22 10/16/22 17:50 17:50 17:50 WBC 8.8 RBC 5.06 Hgb 12.1 Hct 37.2 MCV 73.5 L MCH 23.8 L MCHC 32.5 RDW 14.5 Plt Count 436 H Neut % (Auto) 83.7 H Lymph % (Auto) 10.1 L [place] % (Auto) 5.3 Eos % (Auto) 0.4 L Baso % (Auto) 0.5 Neut # (Auto) 7400 H Lymph # (Auto) 900 L [place] # (Auto) 500 Eos # (Auto) 0 Baso # (Auto) 0 PT INR Sodium 135 L Potassium 3.5 Chloride 97 L Carbon Dioxide 22 BUN 9 Creatinine 0.60 Estimated GFR > 60 BUN/Creatinine Ratio 15.0 Glucose 107 H Lactate 0.9 Calcium 9.2 Total Bilirubin 0.8 AST 29 ALT 26 Alkaline Phosphatase 108 Total Protein 7.4 Albumin 4.0 Globulin 3.4 Albumin/Globulin Ratio 1.2 Lipase 202 Carcinoembryonic Ag CA 125 Antigen Procalcitonin Serum , Qual Urine Color Urine Appearance Urine pH Ur Specific [place] Urine Protein Urine Glucose (UA) Urine Ketones Urine Occult Blood Urine Nitrate Urine Bilirubin Ur Bilirubin Confirm Urine Urobilinogen Ur Leukocyte Esterase Urine RBC Urine WBC Ur Squamous Epith Cells Urine Bacteria Ur Culture Indicated? Fluid RBC Fld Tot Nucleated Cell SARS-CoV-2 (PCR) 10/16/22 10/16/22 10/16/22 17:50 17:50 20:20 WBC RBC Hgb Hct MCV MCH MCHC RDW Plt Count Neut % (Auto) Lymph % (Auto) [place] % (Auto) Eos % (Auto) Baso % (Auto) Neut # (Auto) Lymph # (Auto) [place] # (Auto) Eos # (Auto) Baso # (Auto) PT INR Sodium Potassium Chloride Carbon Dioxide BUN Creatinine Estimated GFR BUN/Creatinine Ratio Glucose Lactate Calcium Total Bilirubin AST ALT Alkaline Phosphatase Total Protein Albumin Globulin Albumin/Globulin Ratio Lipase Carcinoembryonic Ag < 0.3 CA 125 Antigen 310 H Procalcitonin Serum , Qual Negative Urine Color Red Urine Appearance Sl cloudy Urine pH 7.0 Ur Specific [place] <=1.005 Urine Protein Negative Urine Glucose (UA) Negative Urine Ketones 2+ H Urine Occult Blood 3+ H Urine Nitrate Negative Urine Bilirubin 1+ H Ur Bilirubin Confirm Negative Urine Urobilinogen 1.0 Ur Leukocyte Esterase Negative Urine RBC 30-100/hpf H Urine WBC None seen Ur Squamous Epith Cells None seen Urine Bacteria None seen Ur Culture Indicated? Cult not indicated Fluid RBC Fld Tot Nucleated Cell SARS-CoV-2 (PCR) 10/17/22 10/17/22 10/17/22 08:15 08:40 08:40 WBC RBC Hgb Hct MCV MCH MCHC RDW Plt Count Neut % (Auto) Lymph % (Auto) [place] % (Auto) Eos % (Auto) Baso % (Auto) Neut # (Auto) Lymph # (Auto) [place] # (Auto) Eos # (Auto) Baso # (Auto) PT 13.9 H INR 1.2 Sodium Potassium Chloride Carbon Dioxide BUN Creatinine Estimated GFR BUN/Creatinine Ratio Glucose Lactate Calcium Total Bilirubin AST ALT Alkaline Phosphatase Total Protein Albumin Globulin Albumin/Globulin Ratio Lipase Carcinoembryonic Ag CA 125 Antigen Procalcitonin 0.05 Serum , Qual Urine Color Urine Appearance Urine pH Ur Specific [place] Urine Protein Urine Glucose (UA) Urine Ketones Urine Occult Blood Urine Nitrate Urine Bilirubin Ur Bilirubin Confirm Urine Urobilinogen Ur Leukocyte Esterase Urine RBC Urine WBC Ur Squamous Epith Cells Urine Bacteria Ur Culture Indicated? Fluid RBC Fld Tot Nucleated Cell SARS-CoV-2 (PCR) Negative 10/17/22 16:43 WBC RBC Hgb Hct MCV MCH MCHC RDW Plt Count Neut % (Auto) Lymph % (Auto) [place] % (Auto) Eos % (Auto) Baso % (Auto) Neut # (Auto) Lymph # (Auto) [place] # (Auto) Eos # (Auto) Baso # (Auto) PT INR Sodium Potassium Chloride Carbon Dioxide BUN Creatinine Estimated GFR BUN/Creatinine Ratio Glucose Lactate Calcium Total Bilirubin AST ALT Alkaline Phosphatase Total Protein Albumin Globulin Albumin/Globulin Ratio Lipase Carcinoembryonic Ag CA 125 Antigen Procalcitonin Serum , Qual Urine Color Urine Appearance Urine pH Ur Specific [place] Urine Protein Urine Glucose (UA) Urine Ketones Urine Occult Blood Urine Nitrate Urine Bilirubin Ur Bilirubin Confirm Urine Urobilinogen Ur Leukocyte Esterase Urine RBC Urine WBC Ur Squamous Epith Cells Urine Bacteria Ur Culture Indicated? 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 She is admitted for resuscitation due to severe dehydration. While she was here, we are obtaining any information we can to help diagnose her condition. She had a paracentesis today which may lead to the source of the malignancy. She can undergo an EGD tomorrow to rule out esophageal or gastric involvement in the process. I told her that I expected she would eventually be able to be discharged once she is fully resuscitated and would most likely continue the workup and evaluation as an outpatient. Time Spent With Patient Critical Care time: I spent a total of [] minutes of critical care time on this patient's care today; this time is exclusive of procedural time.
[2022-10-17 18:02] LABS: Body Fluid Appearance CLEAR; Body Fluid Clotted? NO CLOTS PRESENT; Body Fluid Color YELLOW; Eosinophils Body Fluid 0 %; Mononuclear WBC Body Fluid 83 %; Other Cells Body Fluid 3 %; Polynuclear WBC Body Fluid 17 %
--- NOTE | 2022-10-17 21:04 | PM.PN.1 ---
Subjective Subjective Date Patient Seen: 10/17/22 Time Patient Seen: 08:00 Interval history: Her pain was epigastric and quite poorly controlled this morning. She had nausea. Pain with swallowing water. She felt weak and dehydrated. Has lost 20 pounds. She has bilateral breast masses for one month, scheduled for breast biopsy on 10/25. She is planned for paracentesis today. She has a family history of gastric cancer and noted imaging with gastric and esophageal thickening. Surgery consulted for EGD and possible biopsies. Exam Vital Signs (past 8 hours): - 10/17/22 13:41 10/17/22 18:00 Temperature 97.2 F L Pulse Rate 109 H Respiratory Rate 16 Blood Pressure 127/67 Pulse Oximetry 100 Oxygen Delivery Method Room Air Oxygen Flow Rate 0 Oxygen Delivery Method Room Air Oxygen Flow Rate 0 Narrative Exam Narrative: General: in discomfort, thin HEENT: dry mucous membranes Lungs: clear bilaterally Cardio: Tachycardic regular rate and rhyth Breast: bilateral breast masses, larger on the left noted, mobile, no erythema noted, nipple retraction noted on left which is not normal for her, small scatter lymph nodes in left axilla Abdomen: Abdomen is distended, tender, firm Objective Labs 10/16/22 17:50 10/16/22 17:50 Labs: Laboratory Results - last 24 hr 10/16/22 10/16/22 10/17/22 17:50 20:20 08:15 PT INR Carcinoembryonic Ag < 0.3 CA 125 Antigen 310 H Procalcitonin Urine Color Red Urine Appearance Sl cloudy Urine pH 7.0 Ur Specific [place] <=1.005 Urine Protein Negative Urine Glucose (UA) Negative Urine Ketones 2+ H Urine Occult Blood 3+ H Urine Nitrate Negative Urine Bilirubin 1+ H Ur Bilirubin Confirm Negative Urine Urobilinogen 1.0 Ur Leukocyte Esterase Negative Urine RBC 30-100/hpf H Urine WBC None seen Ur Squamous Epith Cells None seen Urine Bacteria None seen Ur Culture Indicated? Cult not indicated Fluid Color Fluid Appearance Fluid RBC Fld Tot Nucleated Cell Fluid Polynuclear WBCs Fluid Mononuclear WBCs Fluid Eosinophils Fluid Other Cells Body Fluid Clot SARS-CoV-2 (PCR) Negative 10/17/22 10/17/22 10/17/22 08:40 08:40 16:43 PT 13.9 H INR 1.2 Carcinoembryonic Ag CA 125 Antigen Procalcitonin 0.05 Urine Color Urine Appearance Urine pH Ur Specific [place] Urine Protein Urine Glucose (UA) Urine Ketones Urine Occult Blood Urine Nitrate Urine Bilirubin Ur Bilirubin Confirm Urine Urobilinogen Ur Leukocyte Esterase Urine RBC Urine WBC Ur Squamous Epith Cells Urine Bacteria Ur Culture Indicated? Fluid Color Yellow Fluid Appearance Clear Fluid RBC 3549 Fld Tot Nucleated Cell 487 Fluid Polynuclear WBCs 17 Fluid Mononuclear WBCs 83 Fluid Eosinophils 0 Fluid Other Cells 3 Body Fluid Clot No clots present SARS-CoV-2 (PCR) [facility] Medical History Healthy adult Family History Father Cancer Aunt Cancer Social History household members: family and children Smoking Status: Former smoker Assessment & Plan Assessment & Plan narrative: 1. Metastatic cancer, primary unknown -CT imaging showed ascites and concern for carcinomatosis -pelvic ultrasound showed no ovarian mass -CT imaging showed gastric wall thickening, and question of gallbladder mass, suspect higher likelihood of gastric cancer -CA-125 elevated, CEA negative -para removed 3L, cytology ordered, negative for SBP with low number of PMNs -plan for EGD with possible biopsy -continue fluid resuscitation and pain control, PPI for epigastric burning discomfort -hopefully with fluid removal and pain control she can tolerate diet -once resuscitated well and pain controlled plan for discharge -at time of discharge will likely need referral for urgent oncology appointment and a oncologic surgeon either GI or plastic parts fabricator onc depending on workup 2. Breast masses -plan for biopsy as outpatient on 10/25 Time Spent With Patient Critical Care time: I spent a total of [] minutes of critical care time on this patient's care today; this time is exclusive of procedural time. Quality VTE Deep Vein Thrombosis/Pulmonary Embolism Present on Admission: No
[2022-10-18] VITALS (13 sets, daily range): BP systolic 98–127; BP diastolic 66–87; PULSE 108–125; RESP 12–18; TEMP 35.8–37.1; O2SAT 97–100; BMI 26.7
--- NOTE | 2022-10-18 | PATH_ITS ---
[facility] Accession Number: [id number] No. of containers..02 Tissue . 01 Material submitted: . PART A: stomach - RANDOM STOMACH BIOPSIES PART B: esophagus - RANDOM ESOPHAGEAL BIOPSIES . 01 Diagnosis: A. 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 Please see comment. . B. Random Esophagus, Biopsies: Invasive adenocarcinoma, poorly differentiated, diffuse/non-cohesive type involving squamocolumnar junction. Negative for intestinal metaplasia. See comment. ANNELISE 10/25/2022 1145 Local . 01 Comment: The carcinoma expresses cytokeratin 7 and CDX2 with the absence of CK20. Immunohistochemical markers specific for [place] and Breast (PAX8, ER, and GATA3) are negative. The immunophenotype is compatible with an upper gastrointestinal/pancreaticobiliary primary site of origin, consistent with the clinical impression of a primary gastric adenocarcinoma. This patient was discussed at [facility] on 10/24/22. . Her2 IHC, Mismatch Repair IHC, and PD-L1(22C3) are pending, and the results will be reported as addendum(s). . Dr. Sanchez discussed preliminary results with Blanche in Dr. Dennis' office on 10/23/2022 and 10/25/2022. . As part of routine quality assurance tester, Dr. Greenfield also reviewed the H/E slides and agrees with the diagnosis of diffuse type adenocarcinoma. . 01 Electronically signed: . Vane Sanchez MD, Pathologist NPI- [id number] . 01 Gross description: . Part A: RANDOM STOMACH BIOPSIES: Received in formalin are multiple fragment(s) of velez, soft tissue measuring 1.5 x 0.7 x 0.1 cm in aggregate submitted entirely in 1 cassette(s) Part B: RANDOM ESOPHAGEAL BIOPSIES: Received in formalin are multiple fragment(s) of velez, soft tissue measuring 0.6 x 0.4 x 0.1 cm in aggregate submitted entirely in 1 cassette(s) /CPE 10/23/2022 0301 Local . 01 Microscopic: . A. Immunohistochemical stains were performed to characterize cells of interest. All control stains showed appropriate reactivity. . Results: CK7: Positive. CK20: Negative. CDX2: Positive. PAX8: Negative, highlights lymphocytes. Estrogen receptor: Negative. GATA3: Negative. . Interpretation: The malignant cells express CK7 and CDX2 with absence of expression of CK20, PAX8, ER and GATA3. This immunophenotype is compatible with an upper gastrointestinal/pancreaticobiliary primary carcinoma. A lung primary with enteric phenotype cannot be completely excluded based on immunohistochemistry alone. The absence of PAX8, ER and JUVENTINO-3 expression, mitigate against mullerian and breast as sites of origin. . . * This test was developed and its performance characteristics determined by [facility]. It has not been cleared or approved by the U.S. Food and Drug Administration. The FDA has determined that such clearance or approval is not necessary. This test is used for clinical purposes. It should not be regarded as investigational or for research. . 01 Pathologist provided ICD-10: C80.1 . 01 CPT . 667393, 243298, N16883, Z99760, 923937 Performed at: 01 [facility] [address] [place] [address] [address] [facility], [place], [place] [id number] MD Benedicto Elliott MD Phone: [phone]
[2022-10-18] MEDS: HYDROMORPHONE 1 MG INJ IV ×5 (00:10→18:37)
[2022-10-18] MEDS: ONDANSETRON 4 MG/2 ML INJ IV ×5 (00:10→20:45)
[2022-10-18] MEDS: LORazepam 2 MG/ML INJ 0.5 MG IV (00:25)
[2022-10-18] MEDS: DEXTROSE 5%-0.9% NS 1,000 ML 60 ML IV (04:52)
[2022-10-18 06:47] LABS: Hematocrit 30.8 % (36-46); Hemoglobin 9.9 g/dL (12.0-16.0); Mean Corpuscular HGB Conc 32.2 % (30-36); Mean Corpuscular Hemoglobin 23.9 PG (26-34); Mean Corpuscular Volume 74.3 fL (80-100); Platelet Count 303 X10^3/uL (150-400); Red Blood Cell Count 4.15 X10^6/uL (4.0-5.2); Red Cell Distribution Width 14.6 % (11.6-14.8); White Blood Cell Count 6.5 X10^3/uL (4.5-11.0)
[2022-10-18 06:50] LABS: BUN Creatinine Ratio 9.4 (6-22); Blood Urea Nitrogen 5 mg/dL (7-17); Calcium 7.9 mg/dL (8.4-10.2); Carbon Dioxide 21 mmol/L (22-32); Chloride 100 mmol/L (98-107); Estimated Glomerular Filt Rate > 60 mL/min (>60); Glucose 99 mg/dL (70-100); HEMOLYSIS < 15 (0-50); Potassium 3.4 mmol/L (3.4-5.1); Sodium 131 mmol/L (137-145)
[2022-10-18] MEDS: PANTOPRAZOLE 40 MG VIAL IV (09:31)
--- NOTE | 2022-10-18 10:58 | DIET.CONS ---
Dietary Consultation Note Admission Date: 10/16/2022 22:30 Assessment: 27 y/o F with abdominal pain for 2 months and difficulty eating, metastatic cancer with concern for carcinomatosis. Per GI consult imaging noted gastric and esophageal thickening and has family h/o gastric cancer. RD consulted for no appetite and unintentional weight loss. Niecy is joined by two family members at bedside. States she has not been able to eat solid food d/t nausea x 2 months. Has mostly been consuming liquids. Lab work indicates Hct 30.8L MCV 74.3L MCH 23.9 L and +ketones. Has received IV liquids for hydration during admission. Currently NPO due to EGD scheduled today at 3p. Reported UBW of 74.5kg. Endorses most of weight loss has occurred since beginning of September, when weight was 69.5kg. Per admission wt, -5.09kg or 7.3% over one month (severe). GI symptoms for 2 months (severe) Diet recall: 2 spoonfuls of yogurt (20kcal, 1gPRO), 3/4 apple (70kcal, 0gPRO), 48-64oz water, 30oz gatorade (190kcals, 0gPRO), 2-3 x8oz pediasure (720kcal, 21gPRO), 24oz pedialyte (90kcal, 0gPRO) Max kcal: 1090 Max PRO: 22g 50-60% EER per diet recall (moderate) 20% PRO needs per diet recall Ht: 160.02 cm Wt: 68.5 kg BMI: 26.7 Last BM: 10/15/22 (10/17/22 14:11) MNA: 9 Gurdeep Score: 20 Diet: 10/18/22 00:01 NPO Diet Diet Modifications: May Advance Diet as Tolerated: Yes Safety Tray needed?: No NPO Type: NPO after Midnight Nutrition Percent Meal Consumed pt npo 10/18/22 08:00 Labs: RBC 4.15 X10^6/uL (4.0-5.2) 10/18/22 05:23 Hgb 9.9 g/dL (12.0-16.0) L 10/18/22 05:23 Hct 30.8 % (36-46) L 10/18/22 05:23 Creatinine 0.53 mg/dL (0.52-1.04) 10/18/22 05:23 Lactate 0.9 mmol/L (0.7-2.1) 10/16/22 17:50 Nutrition Diagnosis: Severe acute protein calorie malnutrition r/t inability to eat d/t nausea and epigastric discomfort and predicted increased kcal needs with metastatic cancer aeb severe weight loss of 7.3% over one month, GI symptoms of nausea and anorexia for 2 months, and inadequate PO per diet recall. -The patient is at much higher risk for medical and surgical complications because of his malnutrition.? This increases the difficulty and complexity of medical and surgical interventions and increases the chances of poor outcomes such as morbidity and mortality. Interventions: 1. Pt currently NPO for EGD today. Would recommend clear ONS if pt able to tolerate, otherwise may be a candidate for nutrition support (TPN vs EN). 2. Discussed higher protein options for clear liquids after discharge. EER: 1700-1900kcal (25-28kcal/kg per BMI) 103-120g PRO (1.5-1.8g/kg per malnutrition) Monitoring/Evaluations: will follow-up on diet needs after EGD Electronically Signed by: Catalina Schuler 10/18/22 10:58 Clinical Dietitian [address] [id number]
[2022-10-18] MEDS: OXYCODONE IR 5 MG TABLET 10 MG PO ×2 (13:51→20:33)
[2022-10-18] MEDS: LACTATED RINGERS 1,000 ML 42 ML IV (15:28)
--- NOTE | 2022-10-18 16:33 | PM.PREOP ---
Pre-operative Note Interval Note History & Physical reviewed/Exam performed by Physician: Yes Changes to H&P: No
--- NOTE | 2022-10-18 17:37 | CM.DANOTE ---
DCP: Assessment 27yo female admitted to ED with c/o abdominal pain, weakness and inability to take in nutrition ongoing for the last 2 months stating she was seen at the [facility] in [place] numerous times and treated for constipation. She is noted to have breast masses for one month with a scheduled breast biopsy scheduled for 10/25/2022. She has a family of gastric cancer and imaging here has been noted to capture gastric and esophageal thickening. This CM met with pt in her room. Introduced self and role. Pt reports that she drives at baseline and works for [employer] Pt sitting in w/c being taken down to EGD and gave this CM permission to speak with her Mom, Aunt and Brother with regard to her continuing care. Family reports that pt lives with her Mom, her 2 young children and one Brother in [place]. Reviewed services with pt's family as pt is in EGD procedure. This CM sent referrals to [facility]. Received call back from [facility] and [facility] who are unable to accept pt due to medicaid insurance. This CM let the Family know. This CM spent time with the family answering questions re. next steps of care and spoke with the floor RNJayashree. plan Plan: Home with [facility] services if they will accept with Nursing, medication management, pain management and nutrition management, and outpatient oncology care. Ellie Jaeger RN Case Manager Discharge Planning/Care Management Discharge Assessment Start: 10/18/22 16:12 Freq: Status: Active Protocol: Document 10/18/22 16:12 BLU (Rec: 10/18/22 16:51 BLU [id number]) Discharge Planning Assessment Assigned Sandwich Maker Ellie Jaeger RN Case Manager Advance Directives? No History Provided By Patient,Family Member,Medical Record Has Patient been admitted in last 30 No days? Prior Living Arrangements Apartment/Condo Household Members family,children Comment Pt lives with her mom and young children Type of transporation used prior to Drives own vehicle admit Independent with ADL's Yes Is patient alert and oriented? Yes Caregiver for Another Yes: cares for her 2 young children Patient/Family Preference Home with Home Health Comment Nsg to support with Medication management, pain management, nutrition management Barriers to Discharge No Discharge Plan Home with Home Health Transportation Arrangement Family to provide transportation Referrals Initiated Home Health Additional Comment Sent a referral and f/u with phone call to Lizbeth at [facility]. If patient plan is home with home health Yes : Has signed face to face form been completed? Medicare Choice List Provided Yes Medicare choice list reviewed on patient,family electronic tablet with Whiteboard Updated in Patient Room with Yes name and ext. # of Sandwich Maker Review Status In Process Next Review Type Continued Stay Review
--- NOTE | 2022-10-18 18:09 | PM.OP.EGD ---
Operative Date/Time/Diagnoses Date of procedure: 10/18/22 Pre-op diagnosis: Thickened stomach wall on CT scan, malignant ascites Post-op diagnosis: other (Same, appears like some sort of adenomatous process) Procedure & Clinicians Study performed: EGD and biopsy Indications: Biopsy suspect malignant ascites diffuse cancer unknown primary. Surgeon: Lindsey Dennis Procedure Notes Procedure in detail: Patient was taken to the endoscopy suite and placed supine with her head upright. A time-out was performed. An anesthesiologist helped provide conscious sedation. A bite block was placed. The EGD scope was placed into the mouth passed the stomach and initially into the trachea this was recognized rapidly and the scope was pulled out it was then reintroduced and entered easily this time into the esophagus. The esophagus then was traversed and the stomach was entered. At the GE junction what seemed like an adenomatous polyp was seen and passed by. A photograph was taken the stomach was then entered and there was some sort of almost diffuse process within the stomach that appeared possibly adenomatous but also was odd in that it seemed to involve cords of the stomach the pylorus was spared and appeared normal I entered the duodenum which also was normal. I was not able to retroflex the scope to view the GE junction because of the encroachment of these thickened gastric processes and I caused some bleeding attempting to do this and ultimately decided not to. Multiple photographs were taken of the stomach pylorus duodenum and GE junction. Several biopsies of these lesions in the stomach were obtained and sent for pathology. I also biopsied the portion that seemed to encroach upon the GE junction entering into the esophagus. The lesions were quite friable there was some bleeding from the biopsy sites. The scope was then withdrawn and overall the patient tolerated the procedure well and went in good condition to the postoperative care unit there were no complications. Specimen(s): other (1. Stomach biopsies 2. Esophageal biopsy) Complications: none
--- NOTE | 2022-10-18 19:07 | PM.PN.1 ---
Subjective Subjective Date Patient Seen: 10/18/22 Interval history: 27 F with probable metastatic cancer, EGD today showed diffuse gastric process. She is hungry after EGD. Exam Vital Signs (past 8 hours): - 10/18/22 12:00 10/18/22 15:10 10/18/22 17:21 Temperature 97.0 F L 98.7 F 97.0 F L Pulse Rate 119 H 110 H 125 H Respiratory Rate 18 16 12 Blood Pressure 112/68 98/72 106/69 Pulse Oximetry 99 98 97 Oxygen Delivery Method Room Air Room Air Oxygen Flow Rate 10/18/22 17:26 10/18/22 17:31 10/18/22 17:36 Temperature Pulse Rate 121 H 116 H 116 H Respiratory Rate 12 12 12 Blood Pressure 103/68 106/70 117/84 Pulse Oximetry 97 97 98 Oxygen Delivery Method Room Air Room Air Room Air Oxygen Flow Rate 10/18/22 17:51 10/18/22 18:10 10/18/22 18:40 Temperature 97.2 F L 96.4 F L Pulse Rate 119 H 113 H 109 H Respiratory Rate 16 17 17 Blood Pressure 119/87 127/80 120/82 Pulse Oximetry 99 100 100 Oxygen Delivery Method Room Air Oxygen Flow Rate 0 0 Oxygen Delivery Method Room Air Oxygen Flow Rate 0 Narrative Exam Narrative: General: in discomfort, thin HEENT: dry mucous membranes Lungs: clear bilaterally Cardio: Tachycardic regular rate and rhyth Breast: bilateral breast masses, larger on the left noted, mobile, no erythema noted, nipple retraction noted on left which is not normal for her, small scatter lymph nodes in left axilla Abdomen: Abdomen is distended, tender, firm Objective Labs 10/18/22 05:23 10/18/22 05:23 Labs: Laboratory Results - last 24 hr 10/17/22 10/18/22 10/18/22 16:43 05:23 05:23 WBC 6.5 RBC 4.15 Hgb 9.9 L Hct 30.8 L MCV 74.3 L MCH 23.9 L MCHC 32.2 RDW 14.6 Plt Count 303 Sodium 131 L Potassium 3.4 Chloride 100 Carbon Dioxide 21 L BUN 5 L Creatinine 0.53 Estimated GFR > 60 BUN/Creatinine Ratio 9.4 Glucose 99 Calcium 7.9 L Ref Test (Refrig) Comment [facility] Medical History Healthy adult Family History Father Cancer Aunt Cancer Social History household members: family and children Smoking Status: Former smoker Assessment & Plan Assessment & Plan narrative: 1. Metastatic cancer, primary unknown -CT imaging showed ascites and concern for carcinomatosis -pelvic ultrasound showed no ovarian mass -CT imaging showed gastric wall thickening, and question of gallbladder mass, suspect higher likelihood of gastric cancer. EGD today with subtantial thickening and multiple biopsies obtained. -CA-125 elevated, CEA negative -para removed 3L, cytology ordered, negative for SBP with low number of PMNs -continue fluid resuscitation and pain control, PPI for epigastric burning discomfort -hopefully with fluid removal and pain control she can tolerate diet -once tolerating adequate oral intake, or alternative nutritional sources are implemented she may be able to discharge home. -at time of discharge will likely need referral for urgent oncology appointment and a oncologic surgeon 2. Breast masses -plan for biopsy as outpatient on 10/25 Code: Full Dispo: possible discharge home in 1-2 days depending on diet. Time Spent With Patient Critical Care time: I spent a total of [] minutes of critical care time on this patient's care today; this time is exclusive of procedural time. Quality VTE Deep Vein Thrombosis/Pulmonary Embolism Present on Admission: No
[2022-10-18] MEDS: DOCUSATE 100 MG CAPSULE PO (20:34)
[2022-10-18] MEDS: BENZOCAINE/MENTHOL 1 LOZ PKT 1 EACH PO (21:20)
[2022-10-18] MEDS: SODIUM CHLORIDE 0.9% 1,000 ML 60 ML IV (23:15)
[2022-10-19 00:22] VITALS: BP 123/78; PULSE 112; RESP 16; TEMP 36.3; O2SAT 100
[2022-10-19] MEDS: OXYCODONE IR 5 MG TABLET 10 MG PO (00:22)
[2022-10-19] MEDS: ONDANSETRON 4 MG/2 ML INJ IV ×6 (00:22→18:29)
[2022-10-19] MEDS: HYDROMORPHONE 1 MG INJ IV ×5 (00:28→20:25)
[2022-10-19 06:00] VITALS: BP 122/68; PULSE 101; RESP 16; TEMP 36.3; O2SAT 98
[2022-10-19] MEDS: LORazepam 2 MG/ML INJ 0.5 MG IV ×2 (06:45→21:32)
[2022-10-19 08:00] VITALS: BP 126/73; PULSE 109; RESP 17; TEMP 36.5; O2SAT 99
--- NOTE | 2022-10-19 08:21 | PC.NURSE ---
Addendum entered by Luisito Barrios R.N. 10/19/22 16:06: good number of visitors. , slept a little. now up to shower. Addendum entered by Luisito Barrios R.N. 10/19/22 12:48: Pt visiting with family and friends and daughter. Pt restful. Original Note: Alert and oriented. a bit pensive. Asking appropriate questions. Brother Rene attentive at bedside.
[2022-10-19 08:26] LABS: Alpha Fetoprotein 3.7 ng/mL (0.0-4.7); Cancer (Carbohydrate) Ag 19-9 < 2 U/mL (0-35)
--- NOTE | 2022-10-19 09:05 | CM.DPC ---
Addendum entered by Annette Velasco R.N. 10/19/22 11:14: Will need to follow up on provider at [facility] to ensure that she can be followed. At this time, hospitalist is working on attempting to get patient nutrition, she may have to go home on TPN, is not yet certain. She is not a candidate for feeding tube, due to the cancer. Family has been at bedside. Patient may be started on clear liquids. Original Note: DCP Cont: Spoke to Pamela at [facility] about Medicaid. Noticed that this patient has [facility] HO, which they can take. She has referral. As long as patient remains homebound, should be able to accept. P: DCP to continue to follow. At this time, plan is home with [facility]. Annette Velasco RN/Transition Coach
[2022-10-19] MEDS: PANTOPRAZOLE 40 MG VIAL IV (10:16)
[2022-10-19] MEDS: SENNOSIDES 8.6 MG TABLET 17.2 MG PO ×2 (10:17→20:25)
[2022-10-19] MEDS: DOCUSATE 100 MG CAPSULE PO ×2 (10:17→20:25)
[2022-10-19] MEDS: SODIUM CHLORIDE 0.9% 1,000 ML 60 ML IV (11:53)
--- NOTE | 2022-10-19 12:37 | P.PN_ITS ---
Subjective Subjective Date Patient Seen: 10/19/22 Interval history: 27 F with probable metastatic cancer. Continues to have difficulty with burning pain about 5 minutes after solid foods. She is tolerating clears okay. Otherwise pain is controlled. Biopsies from EGD pending. Complains of slight increase in her abdominal size today, started to get a feeling of needing to urinate but nothing comes out. Exam Vital Signs (past 8 hours): - 10/19/22 06:00 10/19/22 08:00 Temperature 97.4 F L 97.7 F Pulse Rate 101 H 109 H Respiratory Rate 16 17 Blood Pressure 122/68 126/73 Pulse Oximetry 98 99 Oxygen Flow Rate 0 0 Oxygen Delivery Method Nasal Cannula Oxygen Flow Rate 0 Narrative Exam Narrative: General: no acute distress thin Cardio: Tachycardic regular rate and rhythm Abdomen: Abdomen is soft, tender in the epigastrium, mild ascites, striae present Ext: no edema or joint effusion Objective Labs 10/18/22 05:23 10/18/22 05:23 Labs: Laboratory Results - last 24 hr 10/16/22 17:50 Alpha Fetoprotein 3.7 CA 19-9 Antigen < 2 PFSH Medical History Healthy adult Family History Father Cancer Aunt Cancer Social History household members: family and children Smoking Status: Former smoker Assessment & Plan Assessment & Plan narrative: 1. Metastatic cancer, primary unknown -CT imaging showed ascites and concern for carcinomatosis -pelvic ultrasound showed no ovarian mass -CT imaging showed gastric wall thickening, and question of gallbladder mass, suspect higher likelihood of gastric cancer. EGD today with subtantial thickening and multiple biopsies obtained. -CA-125 elevated, CEA negative -para removed 3L, cytology ordered, negative for SBP with low number of PMNs -hopefully with fluid removal and pain control she can tolerate diet, but only clears today - increase PPI to 40 mg BID, add sucralfate. Otherwise pain is controlled. - with ascites, will try low dose diuretic to see if this can prevent re-a ccumulation of fluid. May not be successful, if hypotensive will need to stop. May need to perform serial paracenteses for fluid management. -once tolerating adequate oral intake, or alternative nutritional sources are implemented she may be able to discharge home. -at time of discharge will likely need referral for urgent oncology appointment and a oncologic surgeon 2. Breast masses -plan for biopsy as outpatient on 10/25 Code: Full Dispo: possible discharge home in 1-2 days depending on diet. Time Spent With Patient Critical Care time: I spent a total of [] minutes of critical care time on this patient's care today ; this time is exclusive of procedural time. Quality VTE Deep Vein Thrombosis/Pulmonary Embolism Present on Admission: No
[2022-10-19] MEDS: SPIRONOLACTONE 25 MG TABLET 12.5 MG PO (13:40)
[2022-10-19] MEDS: FUROSEMIDE 20 MG TABLET PO (13:42)
[2022-10-19 16:17] VITALS: BP 126/79; PULSE 144; RESP 17; TEMP 36.3; O2SAT 98
[2022-10-19] MEDS: SODIUM CHLORIDE 0.9% 1,000 ML 1000 ML IV (17:28)
[2022-10-19] MEDS: SUCRALFATE 1 GM/10 ML ORAL SUSP PO (18:29)
[2022-10-19] MEDS: SODIUM CHLORIDE 0.9% 1,000 ML 50 ML IV (18:29)
[2022-10-19] MEDS: HYDROMORPHONE 4 MG TABLET PO (18:41)
[2022-10-19] MEDS: PANTOPRAZOLE DR 40 MG TABLET PO (20:25)
[2022-10-19 20:33] VITALS: BP 120/74; PULSE 119; RESP 17; TEMP 36.4; O2SAT 98
[2022-10-19] MEDS: METOCLOPRAMIDE 10 MG/2 ML INJ IV (22:13)
[2022-10-20] MEDS: HYDROMORPHONE 1 MG INJ IV ×6 (03:51→22:21)
[2022-10-20] MEDS: ONDANSETRON 4 MG/2 ML INJ IV ×3 (03:51→19:38)
[2022-10-20 04:00] VITALS: BP 129/72; PULSE 125; RESP 16; TEMP 36.4; O2SAT 98
[2022-10-20 06:02] LABS: Add Manual Diff / Slide Review NO; Basophils Absolute Auto 0 /uL (0-100); Basophils Percent Auto 0.8 % (0-2); Eosinophils Absolute Auto 100 /uL (0-450); Eosinophils Percent Auto 1.2 % (2-4); Hematocrit 31.9 % (36-46); Hemoglobin 10.4 g/dL (12.0-16.0); Lymphocytes Absolute Auto 800 /uL (1100-4500); Lymphocytes Percent Auto 13.1 % (25-40); Mean Corpuscular HGB Conc 32.4 % (30-36); Mean Corpuscular Hemoglobin 23.7 PG (26-34); Mean Corpuscular Volume 73.1 fL (80-100); Monocytes Absolute Auto 500 /uL (0-900); Monocytes Percent Auto 9.3 % (3-14); Neutrophils Absolute Auto 4400 /uL (1500-7000); Neutrophils Percent Auto 75.6 % (50-75); Platelet Count 360 X10^3/uL (150-400); Red Blood Cell Count 4.37 X10^6/uL (4.0-5.2); Red Cell Distribution Width 14.6 % (11.6-14.8); White Blood Cell Count 5.8 X10^3/uL (4.5-11.0)
[2022-10-20 06:13] LABS: BUN Creatinine Ratio 5.6 (6-22); Blood Urea Nitrogen 4 mg/dL (7-17); Calcium 8.2 mg/dL (8.4-10.2); Carbon Dioxide 23 mmol/L (22-32); Chloride 103 mmol/L (98-107); Estimated Glomerular Filt Rate > 60 mL/min (>60); Glucose 99 mg/dL (70-100); HEMOLYSIS < 15 (0-50); Magnesium 1.6 mg/dL (1.6-2.3); Potassium 3.4 mmol/L (3.4-5.1); Sodium 133 mmol/L (137-145)
[2022-10-20] MEDS: PANTOPRAZOLE DR 40 MG TABLET PO (06:44)
[2022-10-20] MEDS: SUCRALFATE 1 GM/10 ML ORAL SUSP PO ×3 (06:45→23:59)
[2022-10-20] MEDS: METOCLOPRAMIDE 10 MG/2 ML INJ IV ×3 (06:47→22:22)
[2022-10-20 08:00] VITALS: BP 127/76; PULSE 125; RESP 18; TEMP 36.1; O2SAT 97
[2022-10-20] MEDS: SENNOSIDES 8.6 MG TABLET 17.2 MG PO (08:06)
[2022-10-20] MEDS: DOCUSATE 100 MG CAPSULE PO (08:06)
[2022-10-20] MEDS: LORazepam 2 MG/ML INJ 0.5 MG IV ×2 (09:03→20:49)
--- NOTE | 2022-10-20 10:24 | PM.CALLCOV.1 ---
Call Coverage Note Note Date of Patient Contact: 10/20/22 Narrative of Care Provided: No seeing daily, will see when pathology returns. Likely needs port a cath.
--- NOTE | 2022-10-20 10:56 | CM.DPC ---
DCP Cont: Discussed patient during team rounds. Hospitalist indicated, she is only able to tolerate clear liquids, most likely is not getting enough nutrition. Patient may be getting TPN, at this time, pathology report is pending. Dr. Gomez had indicated the possibility of transfer, due to all of her medical needs. He is also working on getting oncology come and see patient. Patient may also need surgery consult. Met with patient and family, to discuss current provider, as well as resources. Patient in bed, not engaging in conversation, weak. Patient's [id number] was present, and brothers. Qybzpi-ns-zni, Marjan, was advocating for patient. Asked about her primary care provider, if she has one, and the name. Marjan indicated that her primary provider is Antonella, unsure if this the correct name at the [facility] in [place]. Stated that she has been going to this clinic for a while, but he did not listen to her about her symptoms, and want to get another provider. Asked her if she could get a different provider in that clinic, since she is already established, for she will need referrals for specialty providers by primary care. She indicated, she will call the clinic and look into this. Marjan also asked about FMLA, patient works for [employer], which is an independent [employer], self-employed, and patient does not qualify for any type of financial assistance since she can't work. Let Marjan know that this DC Fire Technician can speak to PET STYLIST, and can bring her some resources for providers, as [facility] has some providers that are accepting new patients. Encouraged her to first attempt a different provider at [facility], since it may take some time to get an appointment at [facility]. This DC Fire Technician left a message with Sujwn-[id number] over at oncology. Did not leave patient's name, or details, but let her know in the message that this is a newly diagnosed 27 year old with cancer, that has 2 children, and difficulty financial supporting them. In the message, let her know that hospitalist most likely will be having oncology see patient. Brought in [facility] providers to [id number]. Obtained Semar in [place]'s number, and asked her to attempt to follow up with PET STYLIST at the [facility] as well. Mentioned to her that patient may qualify for disability, which would have to be filled out by primary care provider, and that the clinic may be able to assist with this. P: DCP to continue to follow closely. Patient may need to go home on TPN, unclear at this time. She does have [facility]/Medicaid. Have given [id number] some resources. Annette Velasco RN/Help Desk Consultant
[2022-10-20 12:00] VITALS: BP 115/66; PULSE 123; RESP 16; TEMP 36.2; O2SAT 98
[2022-10-20] MEDS: SODIUM CHLORIDE 0.9% 1,000 ML 50 ML IV (15:15)
[2022-10-20] MEDS: fentaNYL 25 MCG/PATCH TOP (15:55)
[2022-10-20 16:00] VITALS: BP 121/73; PULSE 133; RESP 18; TEMP 35.9; O2SAT 97
--- NOTE | 2022-10-20 16:25 | PM.PN.1 ---
Subjective Subjective Date Patient Seen: 10/20/22 Interval history: Still not tolerating much of her diet. Occasionally able to tolerate some clears. Some improvement today with reglan, but continues to have burning pain. oral medications not helping, only IV. Will add fentanyl patch today. Also with increasing distension and abdominal pressure. Exam Vital Signs (past 8 hours): - 10/20/22 12:00 Temperature 97.1 F L Pulse Rate 123 H Respiratory Rate 16 Blood Pressure 115/66 Pulse Oximetry 98 Oxygen Flow Rate 0 Oxygen Delivery Method Nasal Cannula Oxygen Flow Rate 0 Narrative Exam Narrative: General: no acute distress thin Cardio: Tachycardic regular rate and rhythm Abdomen: Abdomen is soft, tender in the epigastrium, increased ascites but not tense Ext: no edema or joint effusion Objective Labs 10/20/22 05:08 10/20/22 05:08 Labs: Laboratory Results - last 24 hr 10/20/22 10/20/22 05:08 05:08 WBC 5.8 RBC 4.37 Hgb 10.4 L Hct 31.9 L MCV 73.1 L MCH 23.7 L MCHC 32.4 RDW 14.6 Plt Count 360 Neut % (Auto) 75.6 H Lymph % (Auto) 13.1 L [place] % (Auto) 9.3 Eos % (Auto) 1.2 L Baso % (Auto) 0.8 Neut # (Auto) 4400 Lymph # (Auto) 800 L [place] # (Auto) 500 Eos # (Auto) 100 Baso # (Auto) 0 Sodium 133 L Potassium 3.4 Chloride 103 Carbon Dioxide 23 BUN 4 L Creatinine 0.72 Estimated GFR > 60 BUN/Creatinine Ratio 5.6 L Glucose 99 Calcium 8.2 L Magnesium 1.6 PFSH Medical History Healthy adult Family History Father Cancer Aunt Cancer Social History household members: family and children Smoking Status: Former smoker Assessment & Plan Assessment & Plan narrative: 1. Metastatic cancer, primary unknown with ascites -CT imaging showed ascites and concern for carcinomatosis -pelvic ultrasound showed no ovarian mass -CT imaging showed gastric wall thickening, and question of gallbladder mass, suspect higher likelihood of gastric cancer. EGD 10/18 with subtantial thickening and multiple biopsies obtained. -CA-125 elevated, CEA negative. -para removed 3L, cytology ordered (? if sent first time) negative for SBP with low number of PMNs. Ascites fluid albumin 2.6. SAAG >1.1. Will need repeat 10/21 paracentesis tomorrow for distension. Re-send pathology. -hopefully with fluid removal and pain control she can tolerate diet, but only clears today - increased PPI to 40 mg BID, add sucralfate. Otherwise pain not controlled with oral medications. Added fentanyl patch 10/20. - with ascites, will tried low dose diuretic to see if this can prevent re-accumulation of fluid. She did not tolerate with hypotension and tachycardia improved with fluids. Will likely need serial paracentesis. -once tolerating adequate oral intake, or alternative nutritional sources are implemented she may be able to discharge home. However will probably need TPN. Will start calorie count today to help determine need for TPN or not. -at time of discharge will likely need referral for urgent oncology appointment and a oncologic surgeon -follow up biopsy results. 2. Breast masses -plan for biopsy as outpatient on 10/25 Code: Full Dispo: possible discharge home in a few days depending on butritional status and pain control. Time Spent With Patient Critical Care time: I spent a total of [] minutes of critical care time on this patient's care today; this time is exclusive of procedural time. Quality VTE Deep Vein Thrombosis/Pulmonary Embolism Present on Admission: No
[2022-10-20 20:07] VITALS: BP 122/70; PULSE 130; RESP 19; TEMP 36.2; O2SAT 97
[2022-10-20 23:25] VITALS: BP 118/76; PULSE 141; RESP 19; TEMP 36.7; O2SAT 96
[2022-10-21] MEDS: ONDANSETRON 4 MG/2 ML INJ IV ×4 (01:06→21:53)
[2022-10-21] MEDS: HYDROMORPHONE 1 MG INJ IV (01:06)
[2022-10-21] MEDS: METOCLOPRAMIDE 10 MG/2 ML INJ IV ×4 (01:29→17:33)
[2022-10-21] MEDS: DEXTROSE 5%-0.9% NS 1,000 ML 50 ML IV (01:30)
[2022-10-21 01:59] LABS: Add Manual Diff / Slide Review NO; Basophils Absolute Auto 0 /uL (0-100); Basophils Percent Auto 0.5 % (0-2); Eosinophils Absolute Auto 0 /uL (0-450); Eosinophils Percent Auto 0.8 % (2-4); Hematocrit 35.8 % (36-46); Hemoglobin 11.4 g/dL (12.0-16.0); Lymphocytes Absolute Auto 500 /uL (1100-4500); Lymphocytes Percent Auto 10.8 % (25-40); Mean Corpuscular HGB Conc 31.9 % (30-36); Mean Corpuscular Hemoglobin 23.7 PG (26-34); Mean Corpuscular Volume 74.3 fL (80-100); Monocytes Absolute Auto 500 /uL (0-900); Monocytes Percent Auto 11.4 % (3-14); Neutrophils Absolute Auto 3600 /uL (1500-7000); Neutrophils Percent Auto 76.5 % (50-75); Platelet Count 477 X10^3/uL (150-400); Red Blood Cell Count 4.82 X10^6/uL (4.0-5.2); Red Cell Distribution Width 14.7 % (11.6-14.8); White Blood Cell Count 4.7 X10^3/uL (4.5-11.0)
[2022-10-21 02:02] LABS: BUN Creatinine Ratio 10.8 (6-22); Blood Urea Nitrogen 8 mg/dL (7-17); Calcium 8.6 mg/dL (8.4-10.2); Carbon Dioxide 20 mmol/L (22-32); Chloride 102 mmol/L (98-107); Creatine Kinase 29 U/L (30-135); Estimated Glomerular Filt Rate > 60 mL/min (>60); Glucose 114 mg/dL (70-100); HEMOLYSIS < 15 (0-50); Magnesium 1.7 mg/dL (1.6-2.3); Sodium 133 mmol/L (137-145)
[2022-10-21 02:14] LABS: Troponin I < 0.012 ng/mL (0.01-0.034)
[2022-10-21] MEDS: SODIUM CHLORIDE 0.9% 500 ML 1000 ML IV (02:33)
[2022-10-21 03:00] VITALS: BP 136/88; PULSE 134; RESP 16; TEMP 36.1; O2SAT 100
[2022-10-21] MEDS: LORazepam 2 MG/ML INJ 1 MG IV (03:16)
[2022-10-21] MEDS: HYDROMORPHONE 1 MG INJ 2 MG IV ×5 (06:24→21:53)
[2022-10-21 07:00] VITALS: BP 115/79; PULSE 145; RESP 18; TEMP 36.2; O2SAT 96
--- NOTE | 2022-10-21 08:00 | DI.US.S_ITS ---
PROCEDURE: US ABDOMEN LIMITED INDICATIONS: ASCITIES TECHNIQUE: Real-time focused scanning was performed of the abdomen, with image documentation. COMPARISON: [facility], US, US ABDOMEN COMPLETE, 10/17/2022, 7:25. FINDINGS: Limited ultrasound examination of all 4 quadrants of abdomen shows small amount of ascites fluid in right lower quadrant and left lower quadrant abdomen. IMPRESSION: Small amount of ascites fluid. Inadequate for safe ultrasound-guided paracentesis. Dictated by: Mando Moctezuma M.D. on 10/21/2022 at 10:13 Approved by: Mando Moctezuma M.D. on 10/21/2022 at 10:14
[2022-10-21] MEDS: SENNOSIDES 8.6 MG TABLET 17.2 MG PO ×2 (09:21→21:54)
[2022-10-21] MEDS: PANTOPRAZOLE 40 MG VIAL IV ×2 (09:21→21:54)
[2022-10-21] MEDS: DOCUSATE 100 MG CAPSULE PO ×2 (09:21→21:54)
--- NOTE | 2022-10-21 09:55 | PC.NURSE ---
Late entry- Pt heart rate 145, pt states,feels tired and has blurred vision, did not sleep well last night. Notified Dr. Gomez in person, no new orders.
--- NOTE | 2022-10-21 10:45 | DI.RAD.S_ITS ---
PROCEDURE: XR CHEST FOR PICC 1V INDICATIONS: PICC PLACEMENT COMPARISON: [facility], CT, CT ANGIO CHEST, 10/17/2022, 1:58. FINDINGS: PICC was placed by the intravenous therapy team from the right side. Fluoroscopic spot film demonstrates the tip of PICC projecting to the area of inferior aspect of the superior vena cava, 1 cm above the cavoatrial junction. IMPRESSION: The tip of the right-sided PICC line overlies the inferior aspect of the superior vena cava. Dictated by: Santi Nieves M.D. on 10/21/2022 at 10:24 Approved by: Santi Nieves M.D. on 10/21/2022 at 10:25
[2022-10-21 11:00] VITALS: BP 122/66; PULSE 139; RESP 19; TEMP 36.2; O2SAT 96
--- NOTE | 2022-10-21 12:13 | DIET.CONS2 ---
Dietary Inpatient Consultation Note Admission Date: 10/16/2022 22:30 Pts EGD showed diffuse adenoedema throughout GE junction and stomach with clear duodenum per surgery. Pt with nearly no PO intake over weekend including ONS. Hospitalist awaiting pathology to guide POC. Pt with little PO intake x2mo including while hospitalized despite Protonix, antiemetics and pain medications. Pt with questionable absorption of PO including PO meds due to stomach disease process. Pt with severe acute protein calorie malnutrition with prospective poor PO intake for >7d so nutrition support via TPN is indicated. Pharmacy and hospitalist on board with initiation of TPN this evening per collaborative protocol. Pt had PICC line placed. Pt at high risk for refeeding syndrome, recommend slow initiation and advancement of TPN rate. Pt receiving D5 since director of patient financial services 10/21/22, recc stopping dextrose infusion once TPN starts to reduce risk refeeding. Recc initiation of TPN at no more than 40% EER on day 1 with addition of MVI and 100mg Thiamine. Electrolytes to be determined per pharmacy protocol once latest labs arrive. Pts goal TPN is 2L Clinimix E 5/20 running at 83mL/h with 250mL IVFE three times per week. Goal TPN provides 2L fluids (100% EER at 30mL/kg), 1,974kcals (100% EER at 28kcal/kg), and 100g PRO (100% EER at 1.5g/kg per malnutrition). Nutrition Diagnosis: Severe acute protein calorie malnutrition r/t inability to eat d/t nausea and epigastric discomfort and predicted increased kcal needs with metastatic cancer aeb severe weight loss of 7.3% over one month, GI symptoms of nausea and anorexia for 2 months, and inadequate PO per diet recall. -The patient is at much higher risk for medical and surgical complications because of his malnutrition.? This increases the difficulty and complexity of medical and surgical interventions and increases the chances of poor outcomes such as morbidity and mortality. EER: 1700-1900kcal (25-28kcal/kg per BMI) 103-120g PRO (1.5-1.8g/kg per malnutrition) Intervention: 1. Initiate TPN nutrition support, continuous via PICC line starting conservatively at 0.5L Clinimix E running at 21mL/h with 250mL IVFE on day 1 with addition of 100mg thiamine. 2. Recc stopping dextrose IVF infusion when TPN starts to reduce risk of refeeding syndrome and meeting pts fluid needs with non-caloric IVF. Feeding progression to be decided daily based on pts tolerance, labs, clinical s/sx. Pt will require TPN once d/c from hospital to support nutrition status as POC unfolds. Diet: 10/18/22 Breakfast General (Regular) Diet Diet Modifications: Nutrition Percent Meal Consumed 0% 10/20/22 18:00 Percent Meal Consumed 0% 10/20/22 10:08 Percent Meal Consumed 25% 10/19/22 16:17 Electronically Signed by: Jolie Dudley 10/21/22 12:13 Clinical Dietitian [address] [address]
[2022-10-21] MEDS: SUCRALFATE 1 GM/10 ML ORAL SUSP PO ×2 (13:00→17:34)
--- NOTE | 2022-10-21 13:11 | CM.DPC ---
DCP: Spoke with Lesa Deejay, construction pit worker at Oncology [phone] who stated that she can support pt with various resources to support pt financially, she states that pt does not qualify for FMLA with occupation at [employer], but that she does qualify for paid leave of [place] if she worked at last 820 hours in the last year. She also states that there is also a reimbursement program for out of pocket expenses for up to $800. This CM reviewed the details of the phone call with Lesa with pt and her Brother and Mother. This CM explained of the qualifications for Paid Leave of [place] per Lesa. Pt and her brother verbalize understanding. Although per Lesa, the pt will need to apply for the Paid leave of [place], print it out and she will be supported with completing it. This CM will reviewed website with pt and brother so that pt is able to initiate an account and pull up an application. Once the application is printed out after they start an account, it can be faxed to [phone] per Lesa, and she will support with getting MD signatures. Per Lesa, Dr. Collier will have availability over the next couple of days if pt is to discharge. Per Dr. Gomez, pt will not be discharging as of yet as he is awaiting pathology reports to result and nutrition intake is a focus at this time. Obtained the name of pt's PCP's that she has seen at [facility] in [place]. [phone] Coral Reyes MD and Toni Pedroza, (Medical Student) per Patient report is who she has seen when there. Ellie Jaeger RN Case Manager
[2022-10-21 13:28] LABS: Alanine Aminotransferase 14 IU/L (<35); Albumin 2.9 g/dL (3.5-5.0); Aspartate Aminotransferase 21 IU/L (14-36); Phosphorous 4.6 mg/dL (2.5-4.5)
[2022-10-21 13:35] LABS: Prealbumin 10.6 mg/dL (17.6-36.0)
--- NOTE | 2022-10-21 14:31 | DI.CT.S_ITS ---
PROCEDURE: CT HEAD/BRAIN WO/W CON INDICATIONS: blurry vision, new, eval for poss metastasis TECHNIQUE: 4.5 mm thick angled axial sections acquired from the foramen magnum to the vertex before and after the administration of intravenous contrast, with coronal and sagittal reformats. For radiation dose reduction, the following was used: automated exposure control, adjustment of mA and/or kV according to patient size. COMPARISON: None. FINDINGS: Image quality: Excellent. CSF Spaces: Basal cisterns are patent. No extra-axial fluid collections. Ventricles are normal in size and shape. Brain: No midline shift. No intracranial bleeds or masses. No abnormal intracranial enhancement. Negro-white interface appears normal. Skull and face: Calvarium and visualized facial bones appear intact, without suspicious lesions. Sinuses: Visualized sinuses and mastoids are clear. IMPRESSION: No CT evidence of intracranial metastatic disease. Dictated by: Polo Bermudez M.D. on 10/21/2022 at 15:03 Approved by: Polo Bermudez M.D. on 10/21/2022 at 15:04
--- NOTE | 2022-10-21 14:32 | PM.PN.1 ---
Subjective Subjective Date Patient Seen: 10/21/22 Interval history: Complains of new blurry vision since yesterday with fentanyl patch administration. She does not notice improvement with her pain. Fentanyl patch discontinued. Will obtain CT head to evaluate for possible metastatic disease. Exam Vital Signs (past 8 hours): - 10/21/22 07:00 10/21/22 11:00 Temperature 97.1 F L 97.1 F L Pulse Rate 145 H 139 H Respiratory Rate 18 19 Blood Pressure 115/79 122/66 Pulse Oximetry 96 96 Oxygen Flow Rate 0 Oxygen Delivery Method Nasal Cannula Oxygen Flow Rate 0 Narrative Exam Narrative: General: no acute distress thin Cardio: Tachycardic regular rate and rhythm Abdomen: Abdomen is soft, tender in the epigastrium, increased ascites but not tense Ext: no edema or joint effusion Objective Labs 10/21/22 01:39 10/21/22 01:39 Labs: Laboratory Results - last 24 hr 10/21/22 10/21/22 10/21/22 01:39 01:39 01:39 WBC 4.7 RBC 4.82 Hgb 11.4 L Hct 35.8 L MCV 74.3 L MCH 23.7 L MCHC 31.9 RDW 14.7 Plt Count 477 H Neut % (Auto) 76.5 H Lymph % (Auto) 10.8 L [place] % (Auto) 11.4 Eos % (Auto) 0.8 L Baso % (Auto) 0.5 Neut # (Auto) 3600 Lymph # (Auto) 500 L [place] # (Auto) 500 Eos # (Auto) 0 Baso # (Auto) 0 Sodium 133 L Potassium 4.0 Chloride 102 Carbon Dioxide 20 L BUN 8 Creatinine 0.74 Estimated GFR > 60 BUN/Creatinine Ratio 10.8 Glucose 114 H Calcium 8.6 Phosphorus Magnesium 1.7 AST ALT Total Creatine Kinase 29 L CK-MB (CK-2) TNP CK-MB (CK-2) Rel Index TNP Troponin I < 0.012 Albumin Prealbumin 10/21/22 10/21/22 10/21/22 01:39 Unknown Unknown WBC RBC Hgb Hct MCV MCH MCHC RDW Plt Count Neut % (Auto) Lymph % (Auto) [place] % (Auto) Eos % (Auto) Baso % (Auto) Neut # (Auto) Lymph # (Auto) [place] # (Auto) Eos # (Auto) Baso # (Auto) Sodium Potassium Chloride Carbon Dioxide BUN Creatinine Estimated GFR BUN/Creatinine Ratio Glucose Calcium Phosphorus 4.6 H Magnesium AST 21 ALT 14 Total Creatine Kinase CK-MB (CK-2) CK-MB (CK-2) Rel Index Troponin I Albumin Cancelled 2.9 L Prealbumin 10.6 L Cancelled 10/21/22 Unknown WBC RBC Hgb Hct MCV MCH MCHC RDW Plt Count Neut % (Auto) Lymph % (Auto) [place] % (Auto) Eos % (Auto) Baso % (Auto) Neut # (Auto) Lymph # (Auto) [place] # (Auto) Eos # (Auto) Baso # (Auto) Sodium Potassium Chloride Carbon Dioxide BUN Creatinine Estimated GFR BUN/Creatinine Ratio Glucose Calcium Phosphorus Magnesium AST Cancelled ALT Cancelled Total Creatine Kinase CK-MB (CK-2) CK-MB (CK-2) Rel Index Troponin I Albumin Prealbumin PFSH Medical History Healthy adult Family History Father Cancer Aunt Cancer Social History household members: family and children Smoking Status: Former smoker Assessment & Plan Assessment & Plan narrative: 1. Metastatic cancer, primary unknown with ascites -CT imaging showed ascites and concern for carcinomatosis -pelvic ultrasound showed no ovarian mass -CT imaging showed gastric wall thickening, and question of gallbladder mass, suspect higher likelihood of gastric cancer. EGD 10/18 with subtantial thickening and multiple biopsies obtained. -CA-125 elevated, CEA negative. -para removed 3L, cytology ordered (? if sent first time) negative for SBP with low number of PMNs. Ascites fluid albumin 2.6. SAAG >1.1. Reeval on 10/21 without enough fluid for paracentesis. -Not tolerating any sort of nutrition, some concern for very poor absorption. Start TPN tonight. - increased PPI to 40 mg BID, added sucralfate. Otherwise pain not controlled with oral medications. Added fentanyl patch 10/20 but patient only had sleepiness without improvement of pain. - with ascites, tried low dose diuretic to see if this can prevent re-accumulation of fluid. She did not tolerate with hypotension and tachycardia improved with fluids. Will likely need serial paracentesis. -at time of discharge will likely need referral for urgent oncology appointment and a oncologic surgeon -follow up biopsy results. 2. Breast masses -plan for biopsy as outpatient on 10/25 3. Blurry vision - possibly secondary to fentanyl patch, will discontinue. - CT head with contrast to evaluate for possible metastatic disease ordered today. 4. Severe acute protein calorie malnutrition - r/t inability to eat d/t nausea and epigastric discomfort and predicted increased kcal needs with metastatic cancer aeb severe weight loss of 7.3% over one month, GI symptoms of nausea and anorexia for 2 months, and inadequate PO per diet recall. -The patient is at much higher risk for medical and surgical complications because of his malnutrition. This increases the difficulty and complexity of medical and surgical interventions and increases the chances of poor outcomes such as morbidity and mortality. -started on TPN today, appreciate dietary and pharmacy involvement in care. -will need to increase caloric intake slowly to avoid refeeding syndrome. Code: Full Dispo: probable discharge home, timing in 3-4 days, depending on nutritional status and pain control. Time Spent With Patient Critical Care time: I spent a total of [] minutes of critical care time on this patient's care today; this time is exclusive of procedural time. Quality VTE Deep Vein Thrombosis/Pulmonary Embolism Present on Admission: No
[2022-10-21 16:00] VITALS: BP 119/71; PULSE 132; RESP 17; TEMP 36.2; O2SAT 98
[2022-10-21] MEDS: diphenhydrAMINE 50 MG/ML VIAL 25 MG IV ×2 (17:41→22:47)
[2022-10-21] MEDS: [UNRECOGNIZED DRUG - OTHER] IV (18:46)
[2022-10-21] MEDS: TRACE ELEMENTS IV (18:46)
[2022-10-21] MEDS: THIAMINE IV (18:46)
[2022-10-21] MEDS: CALCIUM IV (18:46)
[2022-10-21] MEDS: LYTES IV (18:46)
[2022-10-21] MEDS: DEXT IV (18:46)
[2022-10-21] MEDS: FAT EMULSIONS 50 GM/250 ML EMULSION IV (18:47)
--- NOTE | 2022-10-21 19:50 | PC.NURSE ---
Late entry- Discussed pain medications ordered for patient, educated about oral medication before IV medication. Pt states,pain tablets don't work, I will not take them. Notified Dr. Gomez, he states, ok with giving IV pain medication.
[2022-10-21 20:45] VITALS: BP 129/86; PULSE 137; RESP 18; TEMP 36.4; O2SAT 97
[2022-10-22] VITALS: BP 135/89; PULSE 144; RESP 18; TEMP 36.3; O2SAT 95
--- NOTE | 2022-10-22 | DI.US.S_ITS ---
ULTRASOUND OF RIGHT BREAST AND AXILLA: 10/22/2022 CLINICAL: 27 y.o. patient. Palpable entire right breast firmness. (known cancer of unknown source). Breast appears deformed and extremely firm during today's ultrasound evaluation. Mammogram and ultrasound dated 10/09/2022. Color flow and real-time ultrasound of the right breast axilla were performed. Negro scale images of the real-time examination were reviewed. No significant abnormalities were seen sonographically in the right axilla. The right breast is abnormal in sonographic appearance. Ill-defined areas of heterogeneous, hypoechoic tissue with disturbed parenchymal architecture seen throughout but most pronounced in the superior aspect of the right breast. No measureable mass visualized as noted on outside comparison study at the 1:00 axis. There is ill-defined mild posterior shadowing. IMPRESSION: SUSPICIOUS OF MALIGNANCY Abnormal appearance of the right breast most pronounced in the superior aspect of the breast without a defineable mass identified. Findings are suspicious for malignancy and targeted sonographic biopsy of the superior right breast is scheduled for later this week. No sonographic abnormalities seen in the right axilla. This exam was interpreted at Station ID: [id number]. Electronically Signed By: Michael Logan M.D. aty/:10/22/2022 15:01:22 Ultrasound BI-RADS: 4 Suspicious for malignancy
[2022-10-22] MEDS: LORazepam 2 MG/ML INJ 1 MG IV ×3 (00:38→20:50)
[2022-10-22] MEDS: HYDROMORPHONE 1 MG INJ 2 MG IV ×4 (02:28→11:45)
[2022-10-22 04:25] VITALS: BP 121/73; PULSE 145; RESP 18; TEMP 36.6; O2SAT 96
[2022-10-22 05:42] LABS: Add Manual Diff / Slide Review NO; Basophils Absolute Auto 0 /uL (0-100); Basophils Percent Auto 0.4 % (0-2); Eosinophils Absolute Auto 100 /uL (0-450); Eosinophils Percent Auto 2.3 % (2-4); Hemoglobin 10.5 g/dL (12.0-16.0); Lymphocytes Absolute Auto 600 /uL (1100-4500); Lymphocytes Percent Auto 12.5 % (25-40); Mean Corpuscular HGB Conc 31.7 % (30-36); Mean Corpuscular Hemoglobin 23.5 PG (26-34); Monocytes Absolute Auto 700 /uL (0-900); Monocytes Percent Auto 15.3 % (3-14); Neutrophils Absolute Auto 3300 /uL (1500-7000); Neutrophils Percent Auto 69.5 % (50-75); Platelet Count 409 X10^3/uL (150-400); Red Blood Cell Count 4.46 X10^6/uL (4.0-5.2); Red Cell Distribution Width 14.4 % (11.6-14.8); White Blood Cell Count 4.7 X10^3/uL (4.5-11.0)
[2022-10-22] MEDS: SUCRALFATE 1 GM/10 ML ORAL SUSP PO ×4 (05:45→23:45)
[2022-10-22 05:46] LABS: Alanine Aminotransferase 14 IU/L (<35); Alkaline Phosphatase 82 U/L (38-126); Aspartate Aminotransferase 18 IU/L (14-36); BUN Creatinine Ratio 16.7 (6-22); Bilirubin Total 0.4 mg/dL (0.2-1.3); Blood Urea Nitrogen 11 mg/dL (7-17); Calcium 8.4 mg/dL (8.4-10.2); Carbon Dioxide 23 mmol/L (22-32); Chloride 100 mmol/L (98-107); Estimated Glomerular Filt Rate > 60 mL/min (>60); Glucose 134 mg/dL (70-100); HEMOLYSIS < 15 (0-50); Phosphorous 3.8 mg/dL (2.5-4.5); Potassium 3.7 mmol/L (3.4-5.1); Sodium 140 mmol/L (137-145)
[2022-10-22 06:06] LABS: Magnesium 1.8 mg/dL (1.6-2.3)
[2022-10-22] MEDS: PANTOPRAZOLE 40 MG VIAL IV ×2 (07:44→19:59)
[2022-10-22] MEDS: METOCLOPRAMIDE 10 MG/2 ML INJ IV ×3 (07:44→17:09)
[2022-10-22 08:00] VITALS: BP 125/77; PULSE 143; RESP 17; TEMP 36.2; O2SAT 97
--- NOTE | 2022-10-22 09:38 | PM.PN.1 ---
Subjective Subjective Date Patient Seen: 10/22/22 Interval history: Patient continues to have NV and pain. She notes breast masses that she noticed 1 month ago and has upcoming outpatient biopsy scheduled. No family history of breast cancer. Exam Vital Signs (past 8 hours): - 10/22/22 04:25 10/22/22 08:00 Temperature 97.8 F 97.1 F L Pulse Rate 145 H 143 H Respiratory Rate 18 17 Blood Pressure 121/73 125/77 Pulse Oximetry 96 97 Oxygen Flow Rate 0 0 Oxygen Delivery Method Nasal Cannula Oxygen Flow Rate 0 Narrative Exam Narrative: General: no acute distress thin Cardio: Tachycardic regular rate and rhythm Abdomen: Abdomen is soft, tender in the epigastrium, increased ascites but not tense Ext: no edema or joint effusion Breasts: hard masses in both breasts Objective Labs 10/22/22 05:23 10/22/22 05:23 Labs: Laboratory Results - last 24 hr 10/21/22 10/21/22 10/21/22 01:39 Unknown Unknown WBC RBC Hgb Hct MCV MCH MCHC RDW Plt Count Neut % (Auto) Lymph % (Auto) [place] % (Auto) Eos % (Auto) Baso % (Auto) Neut # (Auto) Lymph # (Auto) [place] # (Auto) Eos # (Auto) Baso # (Auto) Sodium Potassium Chloride Carbon Dioxide BUN Creatinine Estimated GFR BUN/Creatinine Ratio Glucose Calcium Phosphorus 4.6 H Magnesium Total Bilirubin AST 21 ALT 14 Alkaline Phosphatase Total Protein Albumin Cancelled 2.9 L Globulin Albumin/Globulin Ratio Prealbumin 10.6 L Cancelled 10/21/22 10/22/22 10/22/22 Unknown 05:23 05:23 WBC 4.7 RBC 4.46 Hgb 10.5 L Hct 33.0 L MCV 74.0 L MCH 23.5 L MCHC 31.7 RDW 14.4 Plt Count 409 H Neut % (Auto) 69.5 Lymph % (Auto) 12.5 L [place] % (Auto) 15.3 H Eos % (Auto) 2.3 Baso % (Auto) 0.4 Neut # (Auto) 3300 Lymph # (Auto) 600 L [place] # (Auto) 700 Eos # (Auto) 100 Baso # (Auto) 0 Sodium Potassium Chloride Carbon Dioxide BUN Creatinine Estimated GFR BUN/Creatinine Ratio Glucose Calcium Phosphorus Magnesium 1.8 Total Bilirubin AST Cancelled ALT Cancelled Alkaline Phosphatase Total Protein Albumin Globulin Albumin/Globulin Ratio Prealbumin 10/22/22 05:23 WBC RBC Hgb Hct MCV MCH MCHC RDW Plt Count Neut % (Auto) Lymph % (Auto) [place] % (Auto) Eos % (Auto) Baso % (Auto) Neut # (Auto) Lymph # (Auto) [place] # (Auto) Eos # (Auto) Baso # (Auto) Sodium 140 Potassium 3.7 Chloride 100 Carbon Dioxide 23 BUN 11 Creatinine 0.66 Estimated GFR > 60 BUN/Creatinine Ratio 16.7 Glucose 134 H Calcium 8.4 Phosphorus 3.8 Magnesium Total Bilirubin 0.4 AST 18 ALT 14 Alkaline Phosphatase 82 Total Protein 6.0 L Albumin 3.0 L Globulin 3.0 Albumin/Globulin Ratio 1.0 Prealbumin [facility] Medical History Healthy adult Family History Father Cancer Aunt Cancer Social History household members: family and children Smoking Status: Former smoker Assessment & Plan Assessment & Plan narrative: 1. Metastatic cancer, primary unknown with ascites -CT imaging showed ascites and concern for carcinomatosis -pelvic ultrasound showed no ovarian mass -CT imaging showed gastric wall thickening, and question of gallbladder mass, suspect higher likelihood of gastric cancer. EGD 10/18 with subtantial thickening and multiple biopsies obtained. -CA-125 elevated, CEA negative. -para removed 3L, cytology ordered (? if sent first time) negative for SBP with low number of PMNs. Ascites fluid albumin 2.6. SAAG >1.1. Reeval on 10/21 without enough fluid for paracentesis. -Not tolerating any sort of nutrition, some concern for very poor absorption. Start TPN tonight. -increased PPI to 40 mg BID, added sucralfate. Otherwise pain not controlled with oral medications. Added fentanyl patch 10/20 but patient only had sleepiness without improvement of pain. -with ascites, tried low dose diuretic to see if this can prevent re-accumulation of fluid. She did not tolerate with hypotension and tachycardia improved with fluids. Will likely need serial paracentesis. -at time of discharge will likely need referral for urgent oncology appointment and a oncologic surgeon -follow up EGD biopsy results. -spoke with Dr. Collier oncology 10/22 who recommended checking additional tumor markers AFP and CA 15-3. Also may want omental biopsy and colonoscopy. He will f/u when EGD path results are back. -spoke with Dr. Dennis gen surg about possible omental laproscopic biopsy vs colonoscopy, she will discuss with onc -added 5mg SL zyprexa daily for NV, lowered dilaudid due to sleepiness and started po SL morphine 5-10mg q4h for cancer pain. Use dilaudid for breakthrough pain. 2. Breast masses -patient says she noticed them 1 month ago, had outpatient mammogram at [facility] -plan for biopsy as outpatient on 10/25 -US bilateral breasts ordered, may warrant inpatient biopsy. Radiologist aware of mammogram and will compare US images to this. 3. Blurry vision - possibly secondary to fentanyl patch, will discontinue. - CT head with contrast to evaluate for possible metastatic disease ordered and negative. - likely due to pain medications 4. Severe acute protein calorie malnutrition - r/t inability to eat d/t nausea and epigastric discomfort and predicted increased kcal needs with metastatic cancer aeb severe weight loss of 7.3% over one month, GI symptoms of nausea and anorexia for 2 months, and inadequate PO per diet recall. -The patient is at much higher risk for medical and surgical complications because of his malnutrition. This increases the difficulty and complexity of medical and surgical interventions and increases the chances of poor outcomes such as morbidity and mortality. -started on TPN today, appreciate dietary and pharmacy involvement in care. -will need to increase caloric intake slowly to avoid refeeding syndrome. Code: Full Dispo: probable discharge home, timing unclear, depending on path results, nutritional status with TPN and pain control. Time Spent With Patient Critical Care time: I spent a total of [] minutes of critical care time on this patient's care today; this time is exclusive of procedural time. Quality VTE Deep Vein Thrombosis/Pulmonary Embolism Present on Admission: No
[2022-10-22] MEDS: ONDANSETRON 4 MG/2 ML INJ IV ×4 (10:31→22:13)
--- NOTE | 2022-10-22 10:49 | DIET.CONS2 ---
Dietary Inpatient Consultation Note Admission Date: 10/16/2022 22:30 Pt tolerating TPN running at 21mL/h with 250mL IVFE without interruption overnight. Pts refeeding labs WNL: BG 134, K+ 3.7, Mg 1.8, phos 3.8. Pt without s/sx third spacing. Plan per RD, pharmacy and hospitalist to increase TPN rate at 1800 today to 42mL/h for 1L Clinimix infusion over 24h with MVI and 100mg thiamine, no lipids. This provides 46% EER for kcals and 50% EER for protein to maintain conservative nutrition advancement for high risk refeeding syndrome. Electrolytes to be managed per pharmacy per protocol. Following daily for TPN tolerance, advancement and signs of refeeding. Diet: 10/18/22 Breakfast General (Regular) Diet Diet Modifications: Nutrition Percent Meal Consumed pt ref breakfast 10/22/22 09:00 Percent Meal Consumed 25% 10/21/22 18:00 Percent Meal Consumed 25% 10/21/22 16:00 Percent Meal Consumed pt ref lunch 10/21/22 11:00 Percent Meal Consumed 0% 10/20/22 18:00 Electronically Signed by: Jolie Dudley 10/22/22 10:49 Clinical Dietitian [address] [address]
[2022-10-22 11:00] VITALS: BP 128/71; PULSE 138; RESP 18; TEMP 36.2; O2SAT 95
--- NOTE | 2022-10-22 12:40 | DI.US.S_ITS ---
ULTRASOUND OF LEFT BREAST AND AXILLA: 10/22/2022 CLINICAL: Palpable entire left breast firmness. (known cancer of unknown source) 27yo. Left breast appears deformed and very firm to palpation. Mammogram and ultrasound dated 10/09/2022. Color flow and real-time ultrasound of the left breast axilla were performed. Negro scale images of the real-time examination were reviewed. No significant abnormalities were seen sonographically in the left axilla. The left breast is abnormal in sonographic appearance. Ill-defined areas of heterogeneous, hypoechoic tissue with disturbed parenchymal architecture seen throughout but most pronounced in the upper inner aspect of the left breast. No measureable mass visualized as noted on outside comparison study at the 11:00 axis. There is ill-defined mild posterior shadowing. IMPRESSION: SUSPICIOUS OF MALIGNANCY Abnormal appearance of the left breast most pronounced in the upper inner aspect of the breast without a defineable mass identified. Findings are suspicious for malignancy and targeted sonographic biopsy of the superior left breast is scheduled for later this week. No sonographic abnormalities seen in the left axilla. This exam was interpreted at Station ID: [id number]. Electronically Signed By: Michael Logan M.D. aty/:10/22/2022 15:00:44 Ultrasound BI-RADS: 4 Suspicious for malignancy
--- NOTE | 2022-10-22 12:46 | CM.DPC ---
Addendum entered by Ellie Jaeger R.N. 10/22/22 13:10: This DCP called and spoke with Jaciel Alexis at [facility], and let her know of pt PCP at [facility] name and phone # see (see previous DCP notes for those). Reviewed pt's insurance with her as well. She will let CM know if there is any problems with acceptance. Plan: Pathology results pending discharge status of hospital to [facility] vs Home with and outpatient oncology. Per Jaciel, they will keep pt on their radar. Original Note: DCP: This DCP met with pt's brother Giuliano in pt room and reviewed website of [facility] and reviewed the steps to setting up an account for pt. Pt gave this approval to discuss this with family during yesterday's visit. Per Giuliano, pt's brother, his will be present tomorrow and will support pt with setting up the account for further processing. Plan: Pathology results pending discharge status. Ellie Jaeger vascular tech
[2022-10-22 13:25] LABS: Cancer Antigen 125 225 U/mL (0-35)
[2022-10-22 13:26] LABS: Carcinoembryonic Antigen 0.3 ng/mL (0.1-3.0)
[2022-10-22] MEDS: OLANZapine ODT 10 MG TAB 5 MG PO (13:35)
[2022-10-22] MEDS: MORPHINE 10 MG/0.5 ML ORAL SYRINGE 5 MG PO ×2 (14:44→23:45)
[2022-10-22 16:00] VITALS: BP 126/85; PULSE 135; RESP 17; TEMP 36.2; O2SAT 98
--- NOTE | 2022-10-22 16:50 | PC.NURSE ---
Patient reports that pain has been worse last 2 days. Able to sleep after receiving pain medications and then wakes up in severe abdominal pain with nausea, reflux, and occasional dry heaves. Tolerating sips of water so far today only. Discussed pain management with Dr. Atwood and attempting new medications as ordered. Patient reports that she has a couple of episodes of vomiting that were small amount of yellow fluid only, but finally made her feel better today and rates her current pain as 3/10. Patient felt urge to void but was unable to, and with some difficulty obtaining accurate bladder scan due to ascites, received order from Dr. Atwood to attempt straight cath. Clear dark yellow urine drained and patient states this helped her feel better. Patient's heart rate has continued in in sinus tachycardia 130's today, Dr. Atwood notified/aware and no new orders received. Will continue to monitor. Call light within reach.
[2022-10-22] MEDS: SODIUM CHLORIDE 0.9% 1,000 ML 75 ML IV (17:50)
[2022-10-22] MEDS: TRACE ELEMENTS IV (17:51)
[2022-10-22] MEDS: [UNRECOGNIZED DRUG - OTHER] IV (17:51)
[2022-10-22] MEDS: LYTES IV (17:51)
[2022-10-22] MEDS: DEXT IV (17:51)
[2022-10-22] MEDS: MULTIVITAMIN IV (17:51)
[2022-10-22] MEDS: CALCIUM IV (17:51)
[2022-10-22] MEDS: HYDROMORPHONE 1 MG INJ IV ×2 (18:04→22:06)
[2022-10-22] MEDS: MORPHINE 10 MG/0.5 ML ORAL SYRINGE PO (19:59)
[2022-10-22] MEDS: DOCUSATE 100 MG CAPSULE PO (20:02)
[2022-10-22] MEDS: SENNOSIDES 8.6 MG TABLET 17.2 MG PO (20:02)
--- NOTE | 2022-10-22 20:18 | PC.NURSE ---
According to family, pt ate 2 grapes, pain increased to 10/10. 10mg PO Morphine given w/ esau bedtime meds. Pt vomited about 5 minutes after administration.
[2022-10-22 22:33] VITALS: BP 124/73; PULSE 134; RESP 16; TEMP 36.2; O2SAT 96
[2022-10-23] VITALS (13 sets, daily range): BP systolic 105–140; BP diastolic 66–104; PULSE 122–141; RESP 13–21; TEMP 35.9–36.2; O2SAT 98–100; BMI 26.7
--- NOTE | 2022-10-23 | DI.RAD.S_ITS ---
PROCEDURE: XR CHEST 1V INDICATIONS: post-op TECHNIQUE: One view of the chest was acquired. COMPARISON: [facility], , XR CHEST FOR PICC 1V, 10/21/2022, 10:41. FINDINGS: Surgical changes and devices: There is a right Port-A-Cath, the tip of which is in the mid SVC. There is a left PICC, the tip of which is near the cavoatrial junction. Lungs and pleura: Lung volumes are low. Lungs are clear. No pleural effusions or pneumothorax. Mediastinum: Mediastinal contours appear normal. Heart size is normal. Bones and chest wall: No suspicious bony lesions. Overlying soft tissues appear unremarkable. IMPRESSION: No acute cardiopulmonary findings. Dictated by: Lea Dunne M.D. on 10/23/2022 at 17:24 Approved by: Lea Dunne M.D. on 10/23/2022 at 17:24
--- NOTE | 2022-10-23 | DI.RAD.S_ITS ---
PROCEDURE: XR CHEST 1V INDICATIONS: inrta-op TECHNIQUE: One view of the chest was acquired. COMPARISON: [facility], CR, XR CHEST 1V, 10/23/2022, 16:42. [facility], CR, XR CHEST FOR PICC 1V, 10/21/2022, 10:41. FINDINGS: Surgical changes and devices: There is a Port-A-Cath on the right with the tip in superior vena cava. In addition, there is a right PICC with the tip in at the caval junction. There is a nasogastric tube in the esophagus. Lungs and pleura: Lungs are clear. No pleural effusions or pneumothorax. Mediastinum: Mediastinal contours appear normal. Heart size is normal. Bones and chest wall: No suspicious bony lesions. Overlying soft tissues appear unremarkable. IMPRESSION: Right Port-A-Cath and PICC line as noted. Dictated by: Clare Daigle M.D. on 10/23/2022 at 17:00 Approved by: Clare Daigle M.D. on 10/23/2022 at 17:02
[2022-10-23] MEDS: diphenhydrAMINE 50 MG/ML VIAL 25 MG IV (01:21)
[2022-10-23] MEDS: HYDROMORPHONE 1 MG INJ IV ×6 (01:21→23:20)
[2022-10-23] MEDS: ONDANSETRON 4 MG/2 ML INJ IV ×3 (04:13→19:59)
[2022-10-23] MEDS: MORPHINE 10 MG/0.5 ML ORAL SYRINGE PO ×2 (04:13→07:55)
[2022-10-23] MEDS: BENZOCAINE/MENTHOL 1 LOZ PKT 1 EACH PO (04:17)
[2022-10-23 05:58] LABS: Alanine Aminotransferase 14 IU/L (<35); Albumin 2.7 g/dL (3.5-5.0); Albumin Globulin Ratio 0.9 (1.0-2.8); Alkaline Phosphatase 73 U/L (38-126); Aspartate Aminotransferase 16 IU/L (14-36); BUN Creatinine Ratio 19.6 (6-22); Bilirubin Total 0.5 mg/dL (0.2-1.3); Blood Urea Nitrogen 11 mg/dL (7-17); Carbon Dioxide 27 mmol/L (22-32); Chloride 100 mmol/L (98-107); Estimated Glomerular Filt Rate > 60 mL/min (>60); Globulin 3.1 g/dL (1.7-4.1); Glucose 123 mg/dL (70-100); HEMOLYSIS < 15 (0-50); Magnesium 1.8 mg/dL (1.6-2.3); Potassium 3.3 mmol/L (3.4-5.1); Sodium 131 mmol/L (137-145); Total Protein 5.8 g/dL (6.3-8.2)
[2022-10-23 06:19] LABS: Add Manual Diff / Slide Review NO; Basophils Absolute Auto 0 /uL (0-100); Basophils Percent Auto 0.2 % (0-2); Eosinophils Absolute Auto 100 /uL (0-450); Eosinophils Percent Auto 2.4 % (2-4); Hematocrit 30.3 % (36-46); Hemoglobin 9.8 g/dL (12.0-16.0); Lymphocytes Absolute Auto 600 /uL (1100-4500); Lymphocytes Percent Auto 14.6 % (25-40); Mean Corpuscular HGB Conc 32.3 % (30-36); Mean Corpuscular Hemoglobin 23.7 PG (26-34); Mean Corpuscular Volume 73.5 fL (80-100); Monocytes Absolute Auto 700 /uL (0-900); Monocytes Percent Auto 17.5 % (3-14); Neutrophils Absolute Auto 2600 /uL (1500-7000); Neutrophils Percent Auto 65.3 % (50-75); Platelet Count 341 X10^3/uL (150-400); Red Blood Cell Count 4.13 X10^6/uL (4.0-5.2); Red Cell Distribution Width 14.7 % (11.6-14.8); White Blood Cell Count 3.9 X10^3/uL (4.5-11.0)
--- NOTE | 2022-10-23 07:38 | PM.PN.1 ---
Subjective Subjective Date Patient Seen: 10/23/22 Interval history: Having ongoing epigastric pain. Po morphine didn't touch it but dilaudid helps. Exam Vital Signs (past 8 hours): - 10/23/22 01:50 10/23/22 04:13 Temperature 97.2 F L 96.9 F L Pulse Rate 122 H 129 H Respiratory Rate 13 14 Blood Pressure 129/76 105/84 Pulse Oximetry 99 98 Oxygen Flow Rate 0 0 Oxygen Delivery Method Room Air Oxygen Flow Rate 0 Narrative Exam Narrative: General: mild distress due to pain, thin Cardio: Tachycardic regular rate and rhythm Abdomen: Abdomen is distended, soft, tender in the epigastrium, increased ascites but not tense Ext: no edema or joint effusion Breasts: hard masses in both breasts Objective Labs 10/23/22 05:39 10/23/22 05:39 Labs: Laboratory Results - last 24 hr 10/22/22 10/23/22 10/23/22 12:15 05:00 05:39 WBC Cancelled RBC Cancelled Hgb Cancelled Hct Cancelled MCV Cancelled MCH Cancelled MCHC Cancelled RDW Cancelled Plt Count Cancelled Neut % (Auto) Cancelled Lymph % (Auto) Cancelled [place] % (Auto) Cancelled Eos % (Auto) Cancelled Baso % (Auto) Cancelled Neut # (Auto) Cancelled Lymph # (Auto) Cancelled [place] # (Auto) Cancelled Eos # (Auto) Cancelled Baso # (Auto) Cancelled Sodium 131 L Potassium 3.3 L Chloride 100 Carbon Dioxide 27 BUN 11 Creatinine 0.56 Estimated GFR > 60 BUN/Creatinine Ratio 19.6 Glucose 123 H Calcium 8.0 L Phosphorus 3.0 Magnesium 1.8 Total Bilirubin 0.5 AST 16 ALT 14 Alkaline Phosphatase 73 Total Protein 5.8 L Albumin 2.7 L Globulin 3.1 Albumin/Globulin Ratio 0.9 L Carcinoembryonic Ag 0.3 CA 125 Antigen 225 H D 10/23/22 05:39 WBC 3.9 L RBC 4.13 Hgb 9.8 L Hct 30.3 L MCV 73.5 L MCH 23.7 L MCHC 32.3 RDW 14.7 Plt Count 341 Neut % (Auto) 65.3 Lymph % (Auto) 14.6 L [place] % (Auto) 17.5 H Eos % (Auto) 2.4 Baso % (Auto) 0.2 Neut # (Auto) 2600 Lymph # (Auto) 600 L [place] # (Auto) 700 Eos # (Auto) 100 Baso # (Auto) 0 Sodium Potassium Chloride Carbon Dioxide BUN Creatinine Estimated GFR BUN/Creatinine Ratio Glucose Calcium Phosphorus Magnesium Total Bilirubin AST ALT Alkaline Phosphatase Total Protein Albumin Globulin Albumin/Globulin Ratio Carcinoembryonic Ag CA 125 Antigen [facility] Medical History Healthy adult Family History Father Cancer Aunt Cancer Social History household members: family and children Smoking Status: Former smoker Assessment & Plan Assessment & Plan narrative: 1. Metastatic cancer, primary unknown with ascites causing severe abd pain and NV -CT imaging showed ascites and concern for carcinomatosis -pelvic ultrasound showed no ovarian mass -CT imaging showed gastric wall thickening, and question of gallbladder mass, suspect higher likelihood of gastric cancer. EGD 10/18 with subtantial thickening and multiple biopsies obtained. -CA-125 elevated, CEA negative. -para removed 3L, cytology ordered (? if sent first time) negative for SBP with low number of PMNs. Ascites fluid albumin 2.6. SAAG >1.1. Reeval on 10/21 without enough fluid for paracentesis. -Not tolerating any sort of nutrition, some concern for very poor absorption. Start TPN tonight. -increased PPI to 40 mg BID, added sucralfate. Otherwise pain not controlled with oral medications. Added fentanyl patch 10/20 but patient only had sleepiness without improvement of pain. -with ascites, tried low dose diuretic to see if this can prevent re-accumulation of fluid. She did not tolerate with hypotension and tachycardia improved with fluids. Will likely need serial paracentesis. -at time of discharge will likely need referral for urgent oncology appointment and a oncologic surgeon -follow up EGD biopsy results. -spoke with Dr. Collier oncology 10/22 who recommended checking additional tumor markers AFP and CA 15-3. Also may want omental biopsy and colonoscopy. He will f/u when EGD path results are back. -spoke with Dr. Dennis gen surg about possible omental laproscopic biopsy vs colonoscopy, she will discuss with onc -added 5mg SL zyprexa daily for NV, continue po SL morphine 5-15mg q4h for cancer pain. Use dilaudid 1mg IV q3h for breakthrough pain. 2. Breast masses -patient says she noticed them 1 month ago, had outpatient mammogram at [facility] -plan for biopsy as outpatient on 10/25 -US bilateral breasts ordered, may warrant inpatient biopsy. Radiologist aware of mammogram and will compare US images to this. -pending US final read 3. Blurry vision, resolved - possibly secondary to fentanyl patch, will discontinue. - CT head with contrast to evaluate for possible metastatic disease ordered and negative. - likely due to pain medications - on 10/23 pain noted blurry vision gone 4. Severe acute protein calorie malnutrition - r/t inability to eat d/t nausea and epigastric discomfort and predicted increased kcal needs with metastatic cancer aeb severe weight loss of 7.3% over one month, GI symptoms of nausea and anorexia for 2 months, and inadequate PO per diet recall. -The patient is at much higher risk for medical and surgical complications because of his malnutrition. This increases the difficulty and complexity of medical and surgical interventions and increases the chances of poor outcomes such as morbidity and mortality. -started on TPN today, appreciate dietary and pharmacy involvement in care. -will need to increase caloric intake slowly to avoid refeeding syndrome. Code: Full code Dispo: probable discharge home, timing unclear, depending on path results, nutritional status with TPN and pain control. Time Spent With Patient Critical Care time: I spent a total of [] minutes of critical care time on this patient's care today; this time is exclusive of procedural time. Quality VTE Deep Vein Thrombosis/Pulmonary Embolism Present on Admission: No
[2022-10-23] MEDS: METOCLOPRAMIDE 10 MG/2 ML INJ IV ×3 (07:58→17:43)
[2022-10-23] MEDS: DOCUSATE 100 MG CAPSULE PO (08:01)
[2022-10-23] MEDS: OLANZapine ODT 10 MG TAB 5 MG PO (08:01)
[2022-10-23] MEDS: PANTOPRAZOLE 40 MG VIAL IV ×2 (08:02→21:50)
[2022-10-23] MEDS: POTASSIUM CHLORIDE IN WATER 10 MEQ/100 ML PIGGYBACK 100 MEQ IV ×4 (08:02→11:51)
[2022-10-23] MEDS: SENNOSIDES 8.6 MG TABLET 17.2 MG PO (08:02)
[2022-10-23] MEDS: MORPHINE 10 MG/0.5 ML ORAL SYRINGE 15 MG PO ×2 (12:33→22:08)
--- NOTE | 2022-10-23 15:31 | P.PN_ITS ---
Subjective Subjective Date Patient Seen: 10/23/22 Time Patient Seen: 15:31 Interval history: 27-year-old female with metastatic gastric adenocarcinoma. Port-A-Cath is requested for long-term venous access for both TPN and potentially chemotherapy. Exam Vital Signs (past 8 hours): - 10/23/22 08:00 10/23/22 11:00 Temperature 97.1 F L 97.1 F L Pulse Rate 129 H 125 H Respiratory Rate 17 17 Blood Pressure 115/71 130/66 Pulse Oximetry 98 98 Oxygen Flow Rate 0 0 Oxygen Delivery Method Room Air Oxygen Flow Rate 0 Narrative Exam Narrative: General adult woman drowsy but awakens to voice follows commands Abdomen distended Objective Labs 10/23/22 05:39 10/23/22 05:39 Labs: Laboratory Results - last 24 hr 10/23/22 10/23/22 10/23/22 05:00 05:39 05:39 WBC Cancelled 3.9 L RBC Cancelled 4.13 Hgb Cancelled 9.8 L Hct Cancelled 30.3 L MCV Cancelled 73.5 L MCH Cancelled 23.7 L MCHC Cancelled 32.3 RDW Cancelled 14.7 Plt Count Cancelled 341 Neut % (Auto) Cancelled 65.3 Lymph % (Auto) Cancelled 14.6 L [place] % (Auto) Cancelled 17.5 H Eos % (Auto) Cancelled 2.4 Baso % (Auto) Cancelled 0.2 Neut # (Auto) Cancelled 2600 Lymph # (Auto) Cancelled 600 L [place] # (Auto) Cancelled 700 Eos # (Auto) Cancelled 100 Baso # (Auto) Cancelled 0 Sodium 131 L Potassium 3.3 L Chloride 100 Carbon Dioxide 27 BUN 11 Creatinine 0.56 Estimated GFR > 60 BUN/Creatinine Ratio 19.6 Glucose 123 H Calcium 8.0 L Phosphorus 3.0 Magnesium 1.8 Total Bilirubin 0.5 AST 16 ALT 14 Alkaline Phosphatase 73 Total Protein 5.8 L Albumin 2.7 L Globulin 3.1 Albumin/Globulin Ratio 0.9 L PFSH Medical History Healthy adult Family History Father Cancer Aunt Cancer Social History household members: family and children Smoking Status: Former smoker Assessment & Plan Assessment and plan (1) Gastric adenocarcinoma: Status: Acute Assessment & Plan narrative: 27-year-old woman with metastatic gastric adenocarcinoma for Port-A-Cath placement today. Overview of the operation was discussed patient. Operative risks including bleeding infection, mechanical device failure, pneumothorax. Questions have been answered and she is in agreement with this plan. Time Spent With Patient Critical Care time: I spent a total of [] minutes of critical care time on this patient's care today; this time is exclusive of procedural time. Quality VTE Deep Vein Thrombosis/Pulmonary Embolism Present on Admission: No
[2022-10-23] MEDS: LACTATED RINGERS 1,000 ML 42 ML IV (15:36)
[2022-10-23] MEDS: CEFAZOLIN 2 GM/100 ML PREMIX 100 ML IV (15:45)
--- NOTE | 2022-10-23 15:58 | SUR.OPER ---
Supine on padded OR bed, head on pillow, arms padded and tucked at sides, legs uncrossed, safety belt at thigh, tape over blanket over lower legs .
[2022-10-23] MEDS: HEPARIN 5,000 UNIT, SODIUM CHLORIDE 0.9% 50 ML IV (16:04)
[2022-10-23] MEDS: BUPIVACAINE 0.25% (PF) VIAL 30 ML INJ (16:05)
--- NOTE | 2022-10-23 16:44 | P.OP_ITS ---
Operative Date/Time/Diagnoses Date of procedure: 10/23/22 Time of procedure: 16:44 Pre-op diagnosis: Gastric adenoma Post-op diagnosis: same Procedure & Clinicians Procedure: Port-A-Cath placement with ultrasound guidance Same procedure as scheduled: Yes Indications: 27 yo woman with metastatic gastric adenocarcinoma here for Port-A-Cath nelson cement secondary to long-term TPN and palliative chemotherapy Surgeon: Tino Buenrostro Operative Notes Findings: Tip of the catheter is within the SVC on fluoroscopy Specimen(s): none sent Estimated Blood Loss (mL): 50 Procedure in detail: Patient was brought to the operating room placed supine on table. Bilateral lower extremity compressive devices were applied. General anesthesia was induced and he was intubated with an LMA. He was then prepped and draped in usual sterile fashion. Time-out was performed ensure the correct patient procedure necessary equipment within the operating room. He received 2 g of Ancef prior to incision. Under ultrasound guidance the right internal jugular vein was accessed under direct visualization. The guidewire was then threaded through the needle. Its placement was then confirmed using fluoroscopy. The dilator was then placed over the guidewire. The catheter was then inserted through the sheath. Placement was again confirmed with fluoroscopy. A subc utaneous pocket was made in the right chest wall. The tunneler device was used to move the catheter from the neck to the chest pocket. The port was attached after it was primed with heparined saline. The port was tested to ensure that it flushed easily and had good blood return. There was not adequate flush for flow through the port. Manipulation of the catheter was made but despite this it remained nonfunctional. As result the right subclavian vein was directly accessed and the guidewire was then threaded through the needle. Its placement was confirmed with fluoroscopy. The tract was dilated and the catheter was threaded through the dilator. Catheter was then pulled back until the tip of it was within the SVC on fluoroscopy. Catheter was then attached to the port and it flushed and mary easily. The port was then secured to the underlying fascia using interupted Ethibond. Hemostasis was achieved. The wound was irrigated with sterile saline. The subcutaneous tissues were reapproximated with the 3 0 Vicryl and then skin closed with 4-0 Monocryl. The skin was sealed with Dermabond. Patient tolerated procedure well. The sponge and instrument count at the end operation was correct. Patient emerged from general anesthesia was extubated and taken to the postoperative care unit in stable condition Complications: none Post-operative Condition: stable Disposition: Acute Care
[2022-10-23] MEDS: HYDROMORPHONE 2 MG INJ IV ×2 (16:59→17:07)
--- NOTE | 2022-10-23 17:03 | DIET.CONS2 ---
Dietary Inpatient Consultation Note Admission Date: 10/16/2022 22:30 Pt tolerated 1L Clinimix E overnight running at 42mL/h. Pt with drop in electrolytes this morning (K+ 3.3 L, phos 3.0 WNL) with BG 123. Plan per RD, pharmacy and hospitalist to continue TPN at current rate for conservative advancement secondary to high risk refeeding syndrome. Electrolytes repleted per pharmacy protocol. 100mg thiamine continued for day 3. Pt receiving ~50% kcal and 50% protein needs. TPN rate advancement tomorrow based on labs and clinical s/sx. Pt in OR now getting port placed. Diet: 10/23/22 14:33 NPO Diet Diet Modifications: NPO Type: Strict Nutrition Percent Meal Consumed ref lunch 10/23/22 14:00 Percent Meal Consumed pt refused breakfast 10/23/22 08:00 Percent Meal Consumed pt ref breakfast 10/22/22 09:00 Percent Meal Consumed 25% 10/21/22 18:00 Electronically Signed by: Jolie Dudley 10/23/22 17:03 Clinical Dietitian [address] [address]
--- NOTE | 2022-10-23 17:17 | PC.NURSE ---
Pt is A&OX#, VSS, afebrile tachycardic on telemetry. Discussed with spa manager she is unable to tolerate any po intake today, emesis x2 approximately 100 cc clear liquid. She is able to ambulate independently to the . Her abdomen is distended and tender with hypoactive BS, she denies having a BM since admission. she declines stool softeners due to them increasing her nausea. She rests in between pain medication of dilaudid IV 1mg and morphine po 15 mg prn, and awakens in pain. Family supportive at bedside. TPN infusing. She is taken to procedure for port placement at approximately 1550 and returns form PACU at approximately 1730 this evening. Continuous monitoring.
[2022-10-23 17:33] LABS: Alpha Fetoprotein 3.3 ng/mL (0.0-4.7); CA 15-3 14.6 U/mL (0.0-25.0); Cancer (Carbohydrate) Ag 19-9 < 2 U/mL (0-35)
[2022-10-23] MEDS: DEXT IV (17:35)
[2022-10-23] MEDS: CALCIUM IV (17:35)
[2022-10-23] MEDS: [UNRECOGNIZED DRUG - OTHER] IV (17:35)
[2022-10-23] MEDS: MULTIVITAMIN IV (17:35)
[2022-10-23] MEDS: LYTES IV (17:35)
[2022-10-23] MEDS: TRACE ELEMENTS IV (17:35)
[2022-10-23] MEDS: FAT EMULSIONS 50 GM/250 ML EMULSION IV (17:42)
[2022-10-23] MEDS: BISACODYL 10 MG SUPP PR (18:24)
[2022-10-23] MEDS: SODIUM CHLORIDE 0.9% 1,000 ML 1000 ML IV (21:00)
[2022-10-23] MEDS: LORazepam 2 MG/ML INJ 1 MG IV (21:50)
--- NOTE | 2022-10-23 21:51 | DI.ECHO.S_ITS ---
[facility] +---------+ Hospital +---------+ : : [address] [place] : : : : [id number] : : : : Phone: [phone] Echocardiogram Report + + :Name: WOODY BOWDEN Study Date: 10/24/2022 Height: 63 in : :[facility] ReadingLocation: Weight: 151 lb : : Gender: Female BSA: 1.7 m2 : :: 1995 Age: 27 yrs BP: 110/65 mmHg: :Reason For Study: TACHYCARDIA : :Ordering Physician: RUMA, : :ANNE Performed By: Dorie Elliott : :Referring: ANNE HENDRIX : + + Interpretation Summary The left ventricle is normal in size and wall thickness. The ejection fraction is estimated to be 60-65%. The right ventricle is normal in size and function. No significant valvular pathology seen. There is a large left-sided pleural effusion. Procedure: A two-dimensional transthoracic echocardiogram with color flow and Doppler was performed. The study quality was technically adequate. There is no prior echocardiogram noted for this patient. The patient was in sinus tachycardia with heart rates between 128-130 bpm during the exam. Left Ventricle: The left ventricle is normal in size and wall thickness. There is no thrombus. The ejection fraction is estimated to be 60-65%. There are no focal wall motion abnormalities. E/E' med: 6.0. Right Ventricle: The right ventricle is normal in size and function. Atria: The left atrium grossly appears normal in size. Right atrial size is normal. There is no Doppler evidence for an interatrial shunt. Mitral Valve: The mitral valve is normal in structure and function. There is no mitral regurgitation noted. Aortic Valve: The aortic valve is grossly normal. The aortic valve opens well. There is no aortic valve stenosis. No aortic regurgitation is present. Tricuspid Valve: The tricuspid valve is normal in structure and function. There is trace tricuspid regurgitation. Pulmonary artery pressures cannot be estimated because of the lack of a measurable TR jet velocity. Pulmonic Valve: The pulmonic valve leaflets are thin and pliable; valve motion is normal. There is no pulmonic valvular regurgitation. Great Vessels: The aortic root is normal size. The dimensions of the ascending aorta are normal. The inferior vena cava was not visualized. Pericardium/ Pleura There is a trivial pericardial effusion noted. There are no echocardiographic indications of cardiac tamponade. There is a large left- sided pleural effusion. MMode/2D Measurements & Calculations LVIDd: 3.2 cm LVOT diam: 2.0 cm LVIDs: 2.3 cm Ao root diam: 2.4 cm FS: 26.0 % asc Aorta Diam: 2.3 cm IVSd: 0.72 cm Ao Arch Diam (Prox Trans): 2.2 cm LVPWd: 0.84 cm LV meza. diameter/BSA (cm/m^2): 1.8 LV sys. diameter/BSA (cm/m^2): 1.4 LA A4 area: 11.7 cm2 RA long axis: 4.4 cm LA length (vol): 3.9 cm RA area: 13.9 cm2 RA vol: 37.4 ml RA : 21.8 ml/m2 RVD1 (basal): 3.7 cm RVD2 (mid): 3.4 cm TAPSE: 1.8 cm Doppler Measurements & Calculations Ao V2 max: 107.6 cm/sec LVOT Max Pierre: 60.1 cm/sec Ao V2 mean: 83.6 cm/sec LV V1 max P.4 mmHg Ao max P.6 mmHg LV V1 VTI: 9.7 cm Ao mean P.0 mmHg FCO(I,D): 1.8 cm2 Ao V2 VTI: 16.6 cm FCO(V,D): 1.8 cm2 sev ratio: 0.58 FCO indexed to BSA (cm^2/m^2): 1.1 MV E max pierre: 65.9 cm/sec PA V2 max: 108.7 cm/sec MV A max pierre: 1.0 cm/sec PA V2 mean: 75.0 cm/sec MV E/A: 63.2 PA mean P.6 mmHg Med Peak E' Pierre: 10.9 cm/sec PA pr(Accel): 40.5 mmHg E/E' med: 6.0 Lat Peak E' Pierre: 9.2 cm/sec E/E' lat: 7.2 E/e' average: 6.6 MV dec time: 0.14 sec SV(LVOT): 30.5 ml Reading Physician:04:15 PM
--- NOTE | 2022-10-23 22:04 | DI.CT.S_ITS ---
PROCEDURE: CT ANGIO CHEST PE PROTOCOL INDICATIONS: PE?, tachycardia TECHNIQUE: After the administration of intravenous contrast, 2 mm thick sections acquired from the pulmonary apices to the posterior costophrenic angles. 3-dimensional maximum intensity projection (MIP) coronal and sagittal reformats were then acquired through the thorax. For radiation dose reduction, the following was used: automated exposure control, adjustment of mA and/or kV according to patient size. COMPARISON: [facility], CT, CT ANGIO CHEST, 10/17/2022, 1:58. FINDINGS: Image quality: Excellent. Pulmonary arteries: Pulmonary arteries are normal in size, and demonstrate no intraluminal filling defects to suggest central pulmonary embolism. Lungs and pleura: Nodular part solid and ground-glass opacities in the right posterior upper lobe respecting the fissural boundary are seen. The lungs are otherwise clear. There is a very small dependent right pleural effusion Mediastinum: The esophagus is distended, thin-walled, and fluid-filled to the level of the GE junction. Heart size is normal. No significant pericardial effusion. No adenopathy. Normal size great vessels. Bones and chest wall: There is a right chest MediPort with moderate amount of surrounding gas suggesting recent placement. Thyroid gland is within normal limits. No axillary or supraclavicular adenopathy. No suspicious osseous abnormality. Abdomen: The upper abdomen demonstrates moderate to large volume ascites. IMPRESSION: 1. No pulmonary embolus. 2. Development of right upper lobe nodular alveolar opacity. Given rapid onset, findings are most suggestive of infection or aspiration. Very small right pleural effusion. 3. The esophagus is diffusely fluid-filled and distended raising suspicion for aspiration. Dictated by: Johanne Melgar M.D. on 10/24/2022 at 0:33 Approved by: Johanne Melgar M.D. on 10/24/2022 at 0:41
--- NOTE | 2022-10-23 22:15 | DI.CT.S_ITS ---
PROCEDURE: CT ABDOMEN PELVIS W CON INDICATIONS: abdominal pain TECHNIQUE: After the administration of intravenous contrast, axial sections acquired from the lung bases to the pubic symphysis. Coronal and sagittal reformats were performed. For radiation dose reduction, the following was used: automated exposure control, adjustment of mA and/or kV according to patient size. COMPARISON: [facility], CT, CT ABDOMEN PELVIS W CON, 10/16/2022, 18:29. FINDINGS: Image quality: Excellent. Lung bases: Respiratory motion. Distal esophagus is dilated and fluid-filled. Heart: No significant findings. ABDOMEN: Liver: Normal. Gallbladder: Distended. Dependent hyperdense bowel, dependent calcified gallstone. Grossly normal wall thickness. Biliary ducts: No significant biliary dilatation. Pancreas: Normal. Spleen: Normal. Adrenal Glands: No nodules. Kidneys and Ureters: Symmetric enhancement. No nephrolithiasis or hydronephrosis. No hydroureter. Stomach and Bowel: Diffuse gastric wall thickening as noted previously. Proximal and mid small bowel loops are distended, although there are a few intervening segments of diffuse decompression and prominent wall thickening. There is no bowel wall pneumatosis. Distal small bowel loops in the right lower quadrant are relatively decompressed but demonstrates diffuse long segment wall thickening. Colon loops are moderately decompressed and unremarkable. Peritoneum: Moderate to large volume of centralized ascites. Irregular omental thickening is noted. No peritoneal implants are visible. No free air. Ventral Wall: No hernias. Abdominal Nodes: No retroperitoneal or mesenteric adenopathy by size criteria. Vessels: Aorta and inferior vena cava are normal in size. PELVIS: Pelvic Organs: Uterus and ovarian tissue is stable. Ovaries have a bilateral cystic appearance with mildly irregular margin, likely accentuated by surrounding ascites. Bladder: Unremarkable. Pelvic Nodes: No enlarged lymph nodes. Miscellaneous: No hernias are seen. Bones: Unremarkable. IMPRESSION: 1. Findings suggestive of small-bowel obstruction or severe ileus. This may be due to inflammation, malignancy of the mesentery, adhesion,, less likely ischemia. 2. Moderate to large quantity ascites. 3. Irregular omental thickening. 4. Diffuse gastric wall thickening, unchanged raises the possibility of gastric neoplasm. There may be partial obstruction at the GE junction given marked distension of the fluid-filled distal esophagus. Upper endoscopy recommended if not previously performed. 5. Cholelithiasis. Dictated by: Johanne Melgar M.D. on 10/24/2022 at 0:42 Approved by: Johanne Melgar M.D. on 10/24/2022 at 1:00
[2022-10-24] VITALS (7 sets, daily range): BP systolic 110–124; BP diastolic 58–75; PULSE 122–159; RESP 17–19; TEMP 36.1–36.4; O2SAT 96–100
[2022-10-24 00:16] LABS: Add Manual Diff / Slide Review NO; Basophils Absolute Auto 0 /uL (0-100); Basophils Percent Auto 0.2 % (0-2); Eosinophils Absolute Auto 0 /uL (0-450); Eosinophils Percent Auto 0.5 % (2-4); Hematocrit 28.4 % (36-46); Hemoglobin 9.2 g/dL (12.0-16.0); Lymphocytes Absolute Auto 300 /uL (1100-4500); Lymphocytes Percent Auto 4.4 % (25-40); Mean Corpuscular HGB Conc 32.4 % (30-36); Mean Corpuscular Hemoglobin 23.9 PG (26-34); Mean Corpuscular Volume 73.7 fL (80-100); Monocytes Absolute Auto 600 /uL (0-900); Monocytes Percent Auto 10.7 % (3-14); Neutrophils Absolute Auto 5100 /uL (1500-7000); Neutrophils Percent Auto 84.2 % (50-75); Platelet Count 261 X10^3/uL (150-400); Red Blood Cell Count 3.85 X10^6/uL (4.0-5.2); Red Cell Distribution Width 14.9 % (11.6-14.8)
[2022-10-24 00:22] LABS: Lactate (Lactic Acid) 2.1 mmol/L (0.7-2.1)
[2022-10-24 00:23] LABS: Alanine Aminotransferase 14 IU/L (<35); Albumin 2.4 g/dL (3.5-5.0); Albumin Globulin Ratio 0.9 (1.0-2.8); Alkaline Phosphatase 75 U/L (38-126); Aspartate Aminotransferase 18 IU/L (14-36); BUN Creatinine Ratio 18.5 (6-22); Bilirubin Total 0.5 mg/dL (0.2-1.3); Blood Urea Nitrogen 10 mg/dL (7-17); Calcium 7.5 mg/dL (8.4-10.2); Carbon Dioxide 22 mmol/L (22-32); Chloride 103 mmol/L (98-107); Estimated Glomerular Filt Rate > 60 mL/min (>60); Globulin 2.8 g/dL (1.7-4.1); Glucose 104 mg/dL (70-100); HEMOLYSIS < 15 (0-50); Potassium 3.7 mmol/L (3.4-5.1); Sodium 130 mmol/L (137-145); Total Protein 5.2 g/dL (6.3-8.2)
[2022-10-24 00:38] LABS: Appearance Urine UA CLEAR; Bilirubin Urine UA NEGATIVE (NEGATIVE); Color Urine UA YELLOW; Glucose Urine UA NEGATIVE (Negative); Ketones Urine UA NEGATIVE (NEGATIVE); Leukocyte Esterase Urine UA NEGATIVE (NEGATIVE); Nitrite Urine UA NEGATIVE (Negative); Occult Blood Urine UA NEGATIVE (Negative); Protein Urine UA NEGATIVE (Negative); Urobilinogen Urine UA 0.2 E.U./dL (0.2)
[2022-10-24 01:04] LABS: RBC Urine None Seen (0-5/HPF); WBC Urine None Seen (0-5/HPF)
[2022-10-24 01:05] LABS: Bacteria Urine None Seen; Culture Indicated Urine Cult Not Indicated
[2022-10-24] MEDS: PIPERACILLIN/TAZO 3.375 GM in SODIUM CHLORIDE 0.9% 100 ML IV ×4 (02:04→22:31)
[2022-10-24] MEDS: HYDROMORPHONE 1 MG INJ IV ×7 (02:05→22:22)
[2022-10-24] MEDS: ONDANSETRON 4 MG/2 ML INJ IV (02:06)
--- NOTE | 2022-10-24 02:07 | DI.US.S_ITS ---
PROCEDURE: US ABDOMEN LIMITED INDICATIONS: ASCITIES TECHNIQUE: Real-time focused scanning was performed of the abdomen, with image documentation. COMPARISON: [facility], US, US ABDOMEN LIMITED, 10/21/2022, 8:00. FINDINGS: Limited ultrasound demonstrates moderate ascites in both lower quadrants. No pocket large enough for paracentesis is identified. IMPRESSION: Moderate ascites. Dictated by: Herman Cesar M.D. on 10/24/2022 at 10:07 Approved by: Herman Cesar M.D. on 10/24/2022 at 10:08
[2022-10-24 02:08] LABS: Reflexed Lactate in 2 Hours Y
[2022-10-24 03:11] LABS: Lactate 2HR (Lactic Acid Rflx) 1.8 mmol/L (0.7-2.1)
[2022-10-24] MEDS: LORazepam 2 MG/ML INJ 1 MG IV (03:29)
[2022-10-24] MEDS: MORPHINE 10 MG/0.5 ML ORAL SYRINGE 15 MG PO ×3 (03:30→23:46)
[2022-10-24 04:57] LABS: Add Manual Diff / Slide Review NO; Basophils Absolute Auto 0 /uL (0-100); Basophils Percent Auto 0.3 % (0-2); Eosinophils Absolute Auto 0 /uL (0-450); Eosinophils Percent Auto 0.4 % (2-4); Hematocrit 27.1 % (36-46); Hemoglobin 8.9 g/dL (12.0-16.0); Lymphocytes Absolute Auto 700 /uL (1100-4500); Lymphocytes Percent Auto 8.5 % (25-40); Mean Corpuscular Hemoglobin 24.2 PG (26-34); Mean Corpuscular Volume 73.3 fL (80-100); Monocytes Absolute Auto 1100 /uL (0-900); Monocytes Percent Auto 13.9 % (3-14); Neutrophils Absolute Auto 6300 /uL (1500-7000); Neutrophils Percent Auto 76.9 % (50-75); Platelet Count 286 X10^3/uL (150-400); Red Cell Distribution Width 14.7 % (11.6-14.8); White Blood Cell Count 8.2 X10^3/uL (4.5-11.0)
[2022-10-24 05:16] LABS: BUN Creatinine Ratio 17.2 (6-22); Blood Urea Nitrogen 10 mg/dL (7-17); Calcium 7.6 mg/dL (8.4-10.2); Carbon Dioxide 23 mmol/L (22-32); Chloride 102 mmol/L (98-107); Estimated Glomerular Filt Rate > 60 mL/min (>60); Glucose 116 mg/dL (70-100); HEMOLYSIS < 15 (0-50); Magnesium 1.7 mg/dL (1.6-2.3); Phosphorous 2.5 mg/dL (2.5-4.5); Potassium 3.9 mmol/L (3.4-5.1); Sodium 130 mmol/L (137-145)
[2022-10-24 05:17] LABS: Alanine Aminotransferase 14 IU/L (<35); Albumin 2.4 g/dL (3.5-5.0); Albumin Globulin Ratio 0.9 (1.0-2.8); Alkaline Phosphatase 75 U/L (38-126); Aspartate Aminotransferase 18 IU/L (14-36); Bilirubin Total 0.5 mg/dL (0.2-1.3); Globulin 2.7 g/dL (1.7-4.1); Total Protein 5.1 g/dL (6.3-8.2)
[2022-10-24 05:19] LABS: Triglycerides 208 mg/dL (35-150)
[2022-10-24] MEDS: diphenhydrAMINE 50 MG/ML VIAL 25 MG IV (05:24)
--- NOTE | 2022-10-24 07:47 | PC.NURSE ---
Pt's HR sustaining at 150-160s. Provider notified, ordered 1L NS bolus. Pt feeling shaky and cold, otherwise afebrile, 100% RA, BP 130s/80s, alert and oriented, pain present in abdomen. Bolus complete, no change in HR. Medications to control pain and nausea had no effect on HR. Provider informed, ordered imaging, labs, EKG, noel inserted, strict NPO. Provider ordered NGT to be inserted if vomiting uncontrollable, but pt doing well with antiemetics available. HR remains in the 150s.
[2022-10-24] MEDS: PANTOPRAZOLE 40 MG VIAL IV ×2 (09:51→20:34)
[2022-10-24] MEDS: ENOXAPARIN 40 MG/0.4 ML SYRINGE SUBCUT (09:51)
[2022-10-24] MEDS: MAGNESIUM SULFATE 2 GM/50 ML PIGGYBACK IV (10:44)
[2022-10-24] MEDS: METOCLOPRAMIDE 10 MG/2 ML INJ IV ×2 (10:45→16:34)
[2022-10-24] MEDS: LACTATED RINGERS 1,000 ML 75 ML IV (10:45)
--- NOTE | 2022-10-24 11:36 | CM.DPC ---
Addendum entered by Annette Velasco R.N. 10/24/22 14:30: Called over at [facility] in [place]. Confirmed with nurse, Dawna, that Dr. Toni Chaudhari is patient's primary care provider. Patient was last seen there on 2-3, no show on -10. They can do referrals if needed. Did not give any details of hospital visit without patient's permission. Spoke to Mara, who has also been helping with case. She did mention a relief fund that may be beneficial for patient, since she has two small children in the care of her mother, and financial support. She also indicated that oncologist is not yet seeing patient until pathology results are in. Did briefly mention DPOA for medical, which has not yet been discussed with patient or family, but forms are here. [facility]'s phone number is: [phone]. If referrals are needed, have point of contact. Latest note from surgeon, Dr. Buenrostro, indicates that patient 'continues to not want NG tube. She may be getting paracentesis, however. Addi at [facility] had indicated that he has received referral, and will review, and get back to care management team. Original Note: DCP Cont: Discussed patient during team rounds. Oncology is supposed to see patient today at the hospital. She will need home TPN, she has refused NG tube so far. It was mentioned that patient may need to have a medical POA in place, should she not be able to make medical decisions. Did leave a message with Mara, who has been assisting in application for state assistance. Faxed over [employer] to run patient's insurance, barrier is that she sees a provider at [facility] in [place], would need to ensure that they could follow. Left a message with Addi at [facility] as well, to review, if he could determine an out of pocket cost. P: DCP working on home plan with [employer] and [employer]. Patient does not have a port. Will see what oncology states. Annette Velasco RN/Engagement Specialist
--- NOTE | 2022-10-24 11:40 | P.PN_ITS ---
Subjective Subjective Interval history: Had worsening abd pain and nausea after eating some jello overnight. CT scan showed SBO vs ileus. Gen surg consulted for port placement. Exam Vital Signs (past 8 hours): Oxygen Delivery Method Room Air Oxygen Flow Rate 0 Narrative Exam Narrative: General: mild distress due to pain, thin Cardio: Tachycardic regular rate and rhythm Abdomen: Abdomen is distended, soft, tender in the epigastrium, increased ascites but not tense Ext: no edema or joint effusion Breasts: hard masses in both breasts Objective Labs 11/02/22 06:20 11/02/22 06:20 [facility] Medical History (Updated 11/05/22 @ 08:56 by Selena Logan) Healthy adult Family History (System 11/05/22 @ 08:56 by Selena Logan) Father Cancer Diabetes mellitus Grandmother Diabetes mellitus Father Cancer Aunt Cancer Social History (System 11/05/22 @ 08:56 by Selena Logan) household members: family and children Smoking Status: Former smoker Assessment & Plan Assessment & Plan narrative: 1. Metastatic gastric adenocarcinoma, with malignant ascites causing severe abd pain and NV -CT imaging showed ascites and evidence of peritoneal carcinomatosis and omental caking -pelvic ultrasound showed no ovarian mass -CT imaging showed gastric wall thickening, and question of gallbladder mass, suspect higher likelihood of gastric cancer. EGD 10/18 with subtantial thickening and multiple biopsies obtained. -CA-125 elevated, CEA negative. -para removed 3L, cytology ordered (? if sent first time) negative for SBP with low number of PMNs. Ascites fluid albumin 2.6. SAAG >1.1. Reeval on 10/21 without enough fluid for paracentesis. -Not tolerating any sort of nutrition, some concern for very poor absorption. Start TPN tonight. -increased PPI to 40 mg BID, added sucralfate. Otherwise pain not controlled with oral medications. Added fentanyl patch 10/20 but patient only had sleepiness without improvement of pain. -with ascites, tried low dose diuretic to see if this can prevent re- accumulation of fluid. She did not tolerate with hypotension and tachycardia improved with fluids. Will likely need serial paracentesis. -at time of discharge will likely need referral for urgent oncology appointment and a oncologic surgeon -spoke with Dr. Collier oncology 10/22 who recommended checking additional tumor markers AFP and CA 15-3. He will follow along -spoke with Dr. Dennis gen surg about possible omental laproscopic biopsy vs colonoscopy, she will discuss with onc -added 5mg SL zyprexa daily for NV, continue po SL morphine 5-15mg q4h for cancer pain. Use dilaudid 1mg IV q3h for breakthrough pain. -path returned on 10/25 confirms gastric adenocarcinoma as primary without markers for breast cancer, oncology working on treatment plan -gen surg consulted to place port 2. Breast masses -patient says she noticed them 1 month ago, had outpatient mammogram at [facility] -originally plan for biopsy as outpatient on 10/25, but this was missed due to being in the hospital -US bilateral breasts ordered, returned as ill-defined areas of heterogeneous, hypoechoic tissue concerning for malignancy -will defer to oncology guidance on whether biopsy is needed or not 3. Blurry vision, resolved - possibly secondary to fentanyl patch, will discontinue. - CT head with contrast to evaluate for possible metastatic disease ordered and negative. - likely due to pain medications - on 10/23 pain noted blurry vision gone 4. Severe acute protein calorie malnutrition - r/t inability to eat d/t nausea and epigastric discomfort and predicted increased kcal needs with metastatic cancer aeb severe weight loss of 7.3% over one month, GI symptoms of nausea and anorexia for 2 months, and inadequate PO per diet recall. -The patient is at much higher risk for medical and surgical complications because of his malnutrition. This increases the difficulty and complexity of me dical and surgical interventions and increases the chances of poor outcomes such as morbidity and mortality. -started on TPN today, appreciate dietary and pharmacy involvement in care. -will need to increase caloric intake slowly to avoid refeeding syndrome. 5. SBO vs severe ileus -CT abd showed dilated loops of bowel, patient hasn't had BM in over a week but no significant stool on scans -per gen surg likely due to ascites and cancer not constipation, very little bowel tones present -patient defers NG at this time, her nausea is improving but not passing gas yet -continue TPN Code: Full code Dispo: probable discharge home, timing unclear, depending on path results, nutritional status with TPN and pain control. Time Spent With Patient Critical Care time: I spent a total of [] minutes of critical care time on this patient's care today; this time is exclusive of procedural time. Quality VTE Deep Vein Thrombosis/Pulmonary Embolism Present on Admission: No
--- NOTE | 2022-10-24 13:00 | PM.PN.1 ---
Subjective Subjective Date Patient Seen: 10/24/22 Time Patient Seen: 13:00 Interval history: 27-year-old woman with likely metastatic gastric adenocarcinoma. She would worsening abdominal pain overnight CT abdomen pelvis demonstrates an ileus with large volume of ascites. Exam Vital Signs (past 8 hours): - 10/24/22 08:00 Temperature 97.4 F L Pulse Rate 140 H Respiratory Rate 18 Blood Pressure 117/74 Pulse Oximetry 98 Oxygen Flow Rate 0 Oxygen Delivery Method Room Air Oxygen Flow Rate 0 Narrative Exam Narrative: Thin adult woman. Abdomen is distended and tense with ascites Objective Labs 10/24/22 04:35 10/24/22 04:35 Labs: Laboratory Results - last 24 hr 10/22/22 10/23/22 10/23/22 12:15 23:55 23:55 WBC 6.0 D RBC 3.85 L Hgb 9.2 L Hct 28.4 L MCV 73.7 L MCH 23.9 L MCHC 32.4 RDW 14.9 H Plt Count 261 Neut % (Auto) 84.2 H Lymph % (Auto) 4.4 L [place] % (Auto) 10.7 Eos % (Auto) 0.5 L Baso % (Auto) 0.2 Neut # (Auto) 5100 Lymph # (Auto) 300 L [place] # (Auto) 600 Eos # (Auto) 0 Baso # (Auto) 0 Sodium 130 L Potassium 3.7 Chloride 103 Carbon Dioxide 22 BUN 10 Creatinine 0.54 Estimated GFR > 60 BUN/Creatinine Ratio 18.5 Glucose 104 H Lactate Calcium 7.5 L Phosphorus Magnesium Total Bilirubin 0.5 AST 18 ALT 14 Alkaline Phosphatase 75 Total Protein 5.2 L Albumin 2.4 L Globulin 2.8 Albumin/Globulin Ratio 0.9 L Triglycerides Alpha Fetoprotein 3.3 CA 15-3 Antigen 14.6 CA 19-9 Antigen < 2 Urine Color Urine Appearance Urine pH Ur Specific [place] Urine Protein Urine Glucose (UA) Urine Ketones Urine Occult Blood Urine Nitrate Urine Bilirubin Urine Urobilinogen Ur Leukocyte Esterase Urine RBC Urine WBC Other Crystals Urine Bacteria Ur Culture Indicated? 10/23/22 10/23/22 10/24/22 23:55 23:55 02:45 WBC RBC Hgb Hct MCV MCH MCHC RDW Plt Count Neut % (Auto) Lymph % (Auto) [place] % (Auto) Eos % (Auto) Baso % (Auto) Neut # (Auto) Lymph # (Auto) [place] # (Auto) Eos # (Auto) Baso # (Auto) Sodium Potassium Chloride Carbon Dioxide BUN Creatinine Estimated GFR BUN/Creatinine Ratio Glucose Lactate 2.1 1.8 Calcium Phosphorus Magnesium Total Bilirubin AST ALT Alkaline Phosphatase Total Protein Albumin Globulin Albumin/Globulin Ratio Triglycerides Alpha Fetoprotein CA 15-3 Antigen CA 19-9 Antigen Urine Color Yellow Urine Appearance Clear Urine pH 6.0 Ur Specific [place] 1.010 Urine Protein Negative Urine Glucose (UA) Negative Urine Ketones Negative Urine Occult Blood Negative Urine Nitrate Negative Urine Bilirubin Negative Urine Urobilinogen 0.2 Ur Leukocyte Esterase Negative Urine RBC None seen Urine WBC None seen Other Crystals * Urine Bacteria None seen Ur Culture Indicated? Cult not indicated 10/24/22 10/24/22 10/24/22 04:35 04:35 04:35 WBC 8.2 RBC 3.70 L Hgb 8.9 L Hct 27.1 L MCV 73.3 L MCH 24.2 L MCHC 33.0 RDW 14.7 Plt Count 286 Neut % (Auto) 76.9 H Lymph % (Auto) 8.5 L [place] % (Auto) 13.9 Eos % (Auto) 0.4 L Baso % (Auto) 0.3 Neut # (Auto) 6300 Lymph # (Auto) 700 L [place] # (Auto) 1100 H Eos # (Auto) 0 Baso # (Auto) 0 Sodium 130 L Potassium 3.9 Chloride 102 Carbon Dioxide 23 BUN 10 Creatinine 0.58 Estimated GFR > 60 BUN/Creatinine Ratio 17.2 Glucose 116 H Lactate Calcium 7.6 L Phosphorus 2.5 Magnesium 1.7 Total Bilirubin 0.5 AST 18 ALT 14 Alkaline Phosphatase 75 Total Protein 5.1 L Albumin 2.4 L Globulin 2.7 Albumin/Globulin Ratio 0.9 L Triglycerides 208 H Alpha Fetoprotein CA 15-3 Antigen CA 19-9 Antigen Urine Color Urine Appearance Urine pH Ur Specific [place] Urine Protein Urine Glucose (UA) Urine Ketones Urine Occult Blood Urine Nitrate Urine Bilirubin Urine Urobilinogen Ur Leukocyte Esterase Urine RBC Urine WBC Other Crystals Urine Bacteria Ur Culture Indicated? [facility] Medical History Healthy adult Family History Father Cancer Aunt Cancer Social History household members: family and children Smoking Status: Former smoker Assessment & Plan Assessment & Plan narrative: 27-year-old woman with likely metastatic gastric adenocarcinoma. In regards to the ileus demonstrated on imaging yesterday I suspect that this is due to extrinsic compression of the intestinal tract by the large volume of malignant ascites. I discussed with her options for management including therapeutic paracentesis and nasogastric tube. She is strongly opposed to a nasogastric tube at this time but will consider paracentesis given her increasing abdominal distention/discomfort. Time Spent With Patient Critical Care time: I spent a total of [] minutes of critical care time on this patient's care today; this time is exclusive of procedural time. Quality VTE Deep Vein Thrombosis/Pulmonary Embolism Present on Admission: No
--- NOTE | 2022-10-24 13:16 | DIET.CONS2 ---
Addendum entered by Jolie Dudley 10/24/22 13:52: RD agrees with Nuclear Medicine Technologist note below. Original Note: Dietary Inpatient Consultation Note Admission Date: 10/16/2022 22:30 Pt tolerated 1L Clinimix E overnight running at 42.7 mL/h. Pt slightly dropped in electrolytes this morning (phos 2.5 WNL, Mg 1.7 WNL) with BG 116. TG high at 208, continue to monitor and plan for lipid adjustment if needed. Plan per RD and pharmacy to advance TPN to 1.5 L tonight with 100 mg thiamine. Continue monitoring electrolytes for signs of refeeding syndrome. Pt receiving ~75% of kcals and protein. Likely to continue 1.5 L TPN tomorrow with no advancement. Met with pt at bedside, along with [id number], to discuss the benefits of an NG tube; removes excess fluids and gas which can reduce pain and pressure. Pt was originally under the impression that the NG tube would be putting food into her stomach. Pt will sit on this information and decide later. Diet: 10/23/22 14:33 NPO Diet Diet Modifications: NPO Type: Strict Nutrition Percent Meal Consumed ref lunch 10/23/22 14:00 Percent Meal Consumed pt refused breakfast 10/23/22 08:00 Electronically Signed by: Kristie Dawn 10/24/22 13:16 Clinical Dietitian [address] [id number]
--- NOTE | 2022-10-24 16:18 | DI.RAD.S_ITS ---
PROCEDURE: XR CHEST 1V INDICATIONS: large left pleural effusion noted on echo, new? TECHNIQUE: One view of the chest was acquired. COMPARISON: [facility], CR, XR CHEST 1V, 10/23/2022, 17:17. FINDINGS: Surgical changes and devices: Right chest wall port catheter, tip of which is in the mid SVC. Right arm PICC is present, tip of which is in the upper SVC. Lungs and pleura: Mild diffuse ground-glass and reticulonodular pulmonary opacity. No pleural effusions or pneumothorax. Mediastinum: Mediastinal contours appear normal. Heart size is normal. Bones and chest wall: No suspicious bony lesions. Overlying soft tissues appear unremarkable. IMPRESSION: Mild atypical pneumonia Dictated by: Nghia Freed M.D. on 10/24/2022 at 16:34 Approved by: Nghia Freed M.D. on 10/24/2022 at 16:36
[2022-10-24] MEDS: BISACODYL 10 MG SUPP PR (16:36)
[2022-10-24] MEDS: [UNRECOGNIZED DRUG - OTHER] IV (18:29)
[2022-10-24] MEDS: TRACE ELEMENTS IV (18:29)
[2022-10-24] MEDS: CALCIUM IV (18:29)
[2022-10-24] MEDS: MULTIVITAMIN IV (18:29)
[2022-10-24] MEDS: LYTES IV (18:29)
[2022-10-24] MEDS: DEXT IV (18:29)
[2022-10-24] MEDS: LACTATED RINGERS 500 ML 21 ML IV (18:39)
[2022-10-24] MEDS: SODIUM CHLORIDE 0.9% FLUSH 10 ML IV ×2 (20:34→22:22)
--- NOTE | 2022-10-24 21:57 | CM.MNRNOTE ---
Patient called & reported I can't move my legs, It's ss big & swollen. Noted her BLE's is more edematous now than earlier. Early assessment only noted feet & ankle edema +2 non pitting. Now it's up 3+ all the way to her thighs. Notified KURTIS Brunner ordered to stop TPN for 4 hrs. Elevate her BLE's. Orders implemented, will resume TPN @ 0153, 10/25/22. Will cont. POC & monitor.
[2022-10-24] MEDS: SODIUM CHLORIDE 0.9% 250 ML 21 ML IV (22:23)
[2022-10-25] MEDS: SODIUM CHLORIDE 0.9% FLUSH 10 ML IV ×4 (01:39→21:46)
[2022-10-25] MEDS: HYDROMORPHONE 1 MG INJ IV ×10 (01:39→23:37)
[2022-10-25 02:40] LABS: Alanine Aminotransferase 11 IU/L (<35); Albumin 2.3 g/dL (3.5-5.0); Albumin Globulin Ratio 0.8 (1.0-2.8); Alkaline Phosphatase 82 U/L (38-126); Aspartate Aminotransferase 17 IU/L (14-36); BUN Creatinine Ratio 23.3 (6-22); Bilirubin Total 0.5 mg/dL (0.2-1.3); Blood Urea Nitrogen 10 mg/dL (7-17); Calcium 7.3 mg/dL (8.4-10.2); Carbon Dioxide 24 mmol/L (22-32); Chloride 104 mmol/L (98-107); Estimated Glomerular Filt Rate > 60 mL/min (>60); Globulin 2.8 g/dL (1.7-4.1); Glucose 91 mg/dL (70-100); HEMOLYSIS < 15 (0-50); Potassium 3.6 mmol/L (3.4-5.1); Sodium 133 mmol/L (137-145); Total Protein 5.1 g/dL (6.3-8.2)
[2022-10-25 02:49] LABS: Phosphorous 3.4 mg/dL (2.5-4.5)
[2022-10-25 04:40] VITALS: BP 112/63; PULSE 121; RESP 19; TEMP 36.3; O2SAT 99
[2022-10-25] MEDS: MORPHINE 10 MG/0.5 ML ORAL SYRINGE 15 MG PO (04:40)
[2022-10-25] MEDS: PIPERACILLIN/TAZO 3.375 GM in SODIUM CHLORIDE 0.9% 100 ML IV ×3 (06:25→21:56)
--- NOTE | 2022-10-25 07:30 | P.PN_ITS ---
Subjective Subjective Date Patient Seen: 10/25/22 Interval history: Patient's nausea is much improved. She still isn't passing gas. Able to get up and walk around unit today. Path results confirm gastric adenocarcinoma. Exam Vital Signs (past 8 hours): - 10/24/22 23:45 10/25/22 04:40 Temperature 97.3 F L 97.3 F L Pulse Rate 122 H 121 H Respiratory Rate 18 19 Blood Pressure 112/69 112/63 Pulse Oximetry 100 99 Oxygen Delivery Method Room Air Oxygen Flow Rate 0 Narrative Exam Narrative: General: mild distress due to pain, thin Cardio: Tachycardic regular rate and rhythm Abdomen: Abdomen is distended, soft, diffusely tender, increased ascites but not tense, decreased to absent bowel sounds Ext: no edema or joint effusion Breasts: hard masses in both breasts Objective Labs 10/24/22 04:35 10/25/22 02:10 Labs: Laboratory Results - last 24 hr 10/25/22 10/25/22 02:10 02:10 Sodium 133 L Potassium 3.6 Chloride 104 Carbon Dioxide 24 BUN 10 Creatinine 0.43 L Estimated GFR > 60 BUN/Creatinine Ratio 23.3 H Glucose 91 Calcium 7.3 L Phosphorus 3.4 Magnesium 2.0 Total Bilirubin 0.5 AST 17 ALT 11 Alkaline Phosphatase 82 Total Protein 5.1 L Albumin 2.3 L Globulin 2.8 Albumin/Globulin Ratio 0.8 L PFSH Medical History Healthy adult Family History Father Cancer Aunt Cancer Social History household members: family and children Smoking Status: Former smoker Assessment & Plan Assessment & Plan narrative: 1. Metastatic gastric adenocarcinoma, with malignant ascites causing severe abd pain and NV -CT imaging showed ascites and evidence of peritoneal carcinomatosis and omental caking -pelvic ultrasound showed no ovarian mass -CT imaging showed gastric wall thickening, and question of gallbladder mass, suspect higher likelihood of gastric cancer. EGD 10/18 with subtantial thickening and multiple biopsies obtained. -CA-125 elevated, CEA negative. -para removed 3L, cytology ordered (? if sent first time) negative for SBP with low number of PMNs. Ascites fluid albumin 2.6. SAAG >1.1. Reeval on 10/21 without enough fluid for paracentesis. -Not tolerating any sort of nutrition, some concern for very poor absorption. Start TPN tonight. -increased PPI to 40 mg BID, added sucralfate. Otherwise pain not controlled with oral medications. Added fentanyl patch 10/20 but patient only had sleepiness without improvement of pain. -with ascites, tried low dose diuretic to see if this can prevent re- accumulation of fluid. She did not tolerate with hypotension and tachycardia improved with fluids. Will likely need serial paracentesis. -at time of discharge will likely need referral for urgent oncology appointment and a oncologic surgeon -spoke with Dr. Collier oncology 10/22 who recommended checking additional tumor markers AFP and CA 15-3. He will follow along -spoke with Dr. Dennis gen surg about possible omental laproscopic biopsy vs c olonoscopy, she will discuss with onc -added 5mg SL zyprexa daily for NV, continue po SL morphine 5-15mg q4h for cancer pain. Use dilaudid 1mg IV q3h for breakthrough pain. -path returned on 10/25 confirms gastric adenocarcinoma as primary without markers for breast cancer, oncology working on treatment plan -port in place 2. Breast masses -patient says she noticed them 1 month ago, had outpatient mammogram at [facility] -originally plan for biopsy as outpatient on 10/25, but this was missed due to being in the hospital -US bilateral breasts ordered, returned as ill-defined areas of heterogeneous, hypoechoic tissue concerning for malignancy -will defer to oncology guidance on whether biopsy is needed or not 3. Blurry vision, resolved - possibly secondary to fentanyl patch, will discontinue. - CT head with contrast to evaluate for possible metastatic disease ordered and negative. - likely due to pain medications - on 10/23 pain noted blurry vision gone 4. Severe acute protein calorie malnutrition - r/t inability to eat d/t nausea and epigastric discomfort and predicted increased kcal needs with metastatic cancer aeb severe weight loss of 7.3% over one month, GI symptoms of nausea and anorexia for 2 months, and inadequate PO per diet recall. -The patient is at much higher risk for medical and surgical complications because of his malnutrition. This increases the difficulty and complexity of medical and surgical interventions and increases the chances of poor outcomes such as morbidity and mortality. -started on TPN today, appreciate dietary and pharmacy involvement in care. -will need to increase caloric intake slowly to avoid refeeding syndrome. 5. SBO vs severe ileus -CT abd showed dilated loops of bowel, patient hasn't had BM in over a week but no significant stool on scans -per gen surg likely due to ascites and cancer not constipation, very little bowel tones present -patient defers NG at this time, her nausea is improving but not passing gas yet -continue TPN Code: Full code Dispo: probable discharge home, timing unclear, depending on path results, nutritional status with TPN and pain control. Time Spent With Patient Critical Care time: I spent a total of [] minutes of critical care time on this patient's care today; this time is exclusive of procedural time. Quality VTE Deep Vein Thrombosis/Pulmonary Embolism Present on Admission: No
[2022-10-25] MEDS: METOCLOPRAMIDE 10 MG/2 ML INJ IV ×3 (08:39→17:20)
[2022-10-25] MEDS: FUROSEMIDE 40 MG/4 ML VIAL IV ×2 (08:39→09:01)
[2022-10-25] MEDS: ENOXAPARIN 40 MG/0.4 ML SYRINGE SUBCUT (08:40)
[2022-10-25] MEDS: PANTOPRAZOLE 40 MG VIAL IV ×2 (08:40→21:46)
[2022-10-25 08:45] VITALS: BP 129/83; PULSE 114; RESP 18; TEMP 36.3; O2SAT 100
[2022-10-25] MEDS: OLANZapine ODT 10 MG TAB 5 MG PO (09:03)
--- NOTE | 2022-10-25 09:48 | PC.NURSE ---
Pt is A&OX3, VSS, afebrile still with tachycardia 110's-120 (slightly improved) Per night baker RN held TPN x4 hours due to c/o BLE swelling increased. TPN resumed at 0210 this a.m. Pt awakens this a.m. c/o heaviness, tightness and swelling in BLE's heavy to poultry picker. MD notified and pt started on IV lasix. She reports pain to abdomen is well controlled this a.m., but c/o feeling hungry. +X4 BS, hypoactive, she continues to deny passing gas, and without BM (other than pebble on 10/23). Deleon in place draining adequate dark yellow urine. Continuous monitoring.
--- NOTE | 2022-10-25 10:50 | DIET.PN1 ---
Dietary Progress Note Assessment: TPN stopped x 4 hours for bilateral LE edema. Restarted at 0210 am. Per nursing pt is having SOB. Hospitalist has started Lasix. Electrolytes continue WNL. Plan to continue 1.5L at this time with addition of Lasix. If edema and SOB do not improve, she may benefit from reducing rate of TPN (1.5L at 52ml/hr instead of 62 ml/hr). Current rate meeting 75% nutrient needs. Per nursing pt is expressing hunger. Current barrier is ileus with no recent flatus or BM. K+ 3.6 Glucose 91 Phos 3.4 Mg 2.0 Ht: 160.02 cm Wt: 68.5 kg BMI: 26.7 Last BM: 10/15/22 (10/23/22 15:31) MNA: 9 Gurdeep Score: 20 Diet: 10/23/22 14:33 NPO Diet Diet Modifications: NPO Type: Strict Nutrition Percent Meal Consumed NPO 10/24/22 18:00 Percent Meal Consumed ref lunch 10/23/22 14:00 Labs: RBC 3.70 X10^6/uL (4.0-5.2) L 10/24/22 04:35 Hgb 8.9 g/dL (12.0-16.0) L 10/24/22 04:35 Hct 27.1 % (36-46) L 10/24/22 04:35 Creatinine 0.43 mg/dL (0.52-1.04) L 10/25/22 02:10 Lactate 1.8 mmol/L (0.7-2.1) 10/24/22 02:45 Monitoring/Evaluations: RD follow-up 10/28 Electronically Signed by: Catalina Schuler 10/25/22 10:50 Clinical Dietitian [address] [address]
--- NOTE | 2022-10-25 10:52 | CM.DPC ---
Addendum entered by Annette Velasco R.N. 10/25/22 13:22: Faxed [facility] over today's note from cone tender. Original Note: DCP Cont: Discussed patient during team rounds. Hospitalist indicated that path report is still pending, let him know that oncology will see patient once the report is in. Hospitalist indicated that patient may be ready to discharge next week. She had noted an ileus, possible bowel obstructon. She had also noted some fluid overload, and they had to initially stop TPN, but now, giving slowly. Called [facility], for referral was sent to them. Spoke to Tiffany, she is in for [facility] They are still running it through. Encouraged her to contact patient and get permission to speak to patient's brother, Giuliano, who has been at bedside with spouse, Marjan, as far as financial share or cost of feedings. Let her know that frequency of TPN may change, but will fax her over the updated dietary notes and progress notes. P: DCP to continue to follow. Plan at this time, is home with [facility], TPN, and [facility]. Annette Velasco RN/Ophthalmic Aide
[2022-10-25] MEDS: ALBUMIN HUMAN 25 GM/100 ML VIAL IV (11:51)
[2022-10-25 11:55] VITALS: BP 113/71; PULSE 124; RESP 18; TEMP 36.3; O2SAT 100
[2022-10-25] MEDS: METHYLNALTREXONE 12 MG/0.6 ML VIAL SUBCUT (12:43)
[2022-10-25] MEDS: ONDANSETRON 4 MG/2 ML INJ IV ×2 (15:33→23:45)
[2022-10-25 17:00] VITALS: BP 115/72; PULSE 111; RESP 18; TEMP 36.3; O2SAT 100
[2022-10-25] MEDS: FAT EMULSIONS 50 GM/250 ML EMULSION IV (19:18)
[2022-10-25] MEDS: [UNRECOGNIZED DRUG - OTHER] IV (19:19)
[2022-10-25] MEDS: MULTIVITAMIN IV (19:19)
[2022-10-25] MEDS: TRACE ELEMENTS IV (19:19)
[2022-10-25] MEDS: DEXT IV (19:19)
[2022-10-25] MEDS: CALCIUM IV (19:19)
[2022-10-25] MEDS: LYTES IV (19:19)
[2022-10-25 19:45] VITALS: BP 120/64; PULSE 117; RESP 18; TEMP 36.6; O2SAT 98
[2022-10-25] MEDS: LORazepam 2 MG/ML INJ 1 MG IV (21:46)
[2022-10-25] MEDS: diphenhydrAMINE 50 MG/ML VIAL 25 MG IV (22:02)
[2022-10-26] VITALS (8 sets, daily range): BP systolic 115–128; BP diastolic 65–83; PULSE 119–127; RESP 16–20; TEMP 36.3–36.9; O2SAT 97–99
[2022-10-26] MEDS: HYDROMORPHONE 1 MG INJ IV ×10 (00:45→22:14)
[2022-10-26] MEDS: SODIUM CHLORIDE 0.9% FLUSH 10 ML IV ×3 (01:50→20:00)
[2022-10-26] MEDS: LORazepam 2 MG/ML INJ 1 MG IV ×3 (01:50→22:14)
[2022-10-26 06:27] LABS: Add Manual Diff / Slide Review NO; Basophils Absolute Auto 0 /uL (0-100); Basophils Percent Auto 0.3 % (0-2); Eosinophils Absolute Auto 100 /uL (0-450); Eosinophils Percent Auto 1.8 % (2-4); Hematocrit 25.4 % (36-46); Hemoglobin 8.2 g/dL (12.0-16.0); Lymphocytes Absolute Auto 600 /uL (1100-4500); Lymphocytes Percent Auto 9.6 % (25-40); Mean Corpuscular HGB Conc 32.3 % (30-36); Mean Corpuscular Hemoglobin 23.4 PG (26-34); Mean Corpuscular Volume 72.5 fL (80-100); Monocytes Absolute Auto 600 /uL (0-900); Monocytes Percent Auto 8.8 % (3-14); Neutrophils Absolute Auto 5100 /uL (1500-7000); Neutrophils Percent Auto 79.5 % (50-75); Platelet Count 281 X10^3/uL (150-400); Red Cell Distribution Width 14.8 % (11.6-14.8); White Blood Cell Count 6.4 X10^3/uL (4.5-11.0)
[2022-10-26 06:36] LABS: BUN Creatinine Ratio 30.4 (6-22); Blood Urea Nitrogen 14 mg/dL (7-17); Calcium 7.6 mg/dL (8.4-10.2); Carbon Dioxide 27 mmol/L (22-32); Chloride 98 mmol/L (98-107); Estimated Glomerular Filt Rate > 60 mL/min (>60); Glucose 128 mg/dL (70-100); HEMOLYSIS < 15 (0-50); Potassium 3.7 mmol/L (3.4-5.1); Sodium 133 mmol/L (137-145)
[2022-10-26] MEDS: PIPERACILLIN/TAZO 3.375 GM in SODIUM CHLORIDE 0.9% 100 ML IV ×3 (06:36→22:21)
--- NOTE | 2022-10-26 07:48 | PM.PN.1 ---
Subjective Subjective Date Patient Seen: 10/26/22 Interval history: Patient ate some jello and water yesterday and vomited and is now having more abd pain today. She is now NPO except ice chips. Bedside US shows increased ascites. Exam Vital Signs (past 8 hours): - 10/26/22 00:45 10/26/22 04:14 Temperature 97.3 F L 98.3 F Pulse Rate 119 H 124 H Respiratory Rate 18 18 Blood Pressure 118/73 126/83 Pulse Oximetry 99 99 Oxygen Flow Rate 0 0 Oxygen Delivery Method Room Air Oxygen Flow Rate 0 Narrative Exam Narrative: General: no acute distress, ill-appearing, thin Cardio: Tachycardic regular rate and rhythm Abdomen: Abdomen is distended, soft, diffusely tender, increased ascites but not tense, decreased to absent bowel sounds Ext: no edema or joint effusion Breasts: hard masses in both breasts Objective Labs 10/26/22 06:00 10/26/22 06:00 Labs: Laboratory Results - last 24 hr 10/26/22 10/26/22 06:00 06:00 WBC 6.4 RBC 3.50 L Hgb 8.2 L Hct 25.4 L MCV 72.5 L MCH 23.4 L MCHC 32.3 RDW 14.8 Plt Count 281 Neut % (Auto) 79.5 H Lymph % (Auto) 9.6 L Beltrami % (Auto) 8.8 Eos % (Auto) 1.8 L Baso % (Auto) 0.3 Neut # (Auto) 5100 Lymph # (Auto) 600 L Beltrami # (Auto) 600 Eos # (Auto) 100 Baso # (Auto) 0 Sodium 133 L Potassium 3.7 Chloride 98 Carbon Dioxide 27 BUN 14 Creatinine 0.46 L Estimated GFR > 60 BUN/Creatinine Ratio 30.4 H Glucose 128 H Calcium 7.6 L PFSH Medical History Healthy adult Family History Father Cancer Aunt Cancer Social History household members: family and children Smoking Status: Former smoker Assessment & Plan Assessment & Plan narrative: 1. Metastatic gastric adenocarcinoma, with malignant ascites causing severe abd pain and NV -CT imaging showed ascites and evidence of peritoneal carcinomatosis and omental caking -pelvic ultrasound showed no ovarian mass -CT imaging showed gastric wall thickening, and question of gallbladder mass, suspect higher likelihood of gastric cancer. EGD 10/18 with subtantial thickening and multiple biopsies obtained. -CA-125 elevated, CEA negative. -para removed 3L, cytology ordered (? if sent first time) negative for SBP with low number of PMNs. Ascites fluid albumin 2.6. SAAG >1.1. Reeval on 10/21 without enough fluid for paracentesis. -Not tolerating any sort of nutrition, some concern for very poor absorption. Start TPN tonight. -increased PPI to 40 mg BID, added sucralfate. Otherwise pain not controlled with oral medications. Added fentanyl patch 10/20 but patient only had sleepiness without improvement of pain. -with ascites, tried low dose diuretic to see if this can prevent re-accumulation of fluid. She did not tolerate with hypotension and tachycardia improved with fluids. Will likely need serial paracentesis. -at time of discharge will likely need referral for urgent oncology appointment and a oncologic surgeon -spoke with Dr. Collier oncology 10/22 who recommended checking additional tumor markers AFP and CA 15-3. He will follow along -spoke with Dr. Dennis gen surg about possible omental laproscopic biopsy vs colonoscopy, she will discuss with onc -added 5mg SL zyprexa daily for NV, continue po SL morphine 5-15mg q4h for cancer pain. Use dilaudid 1mg IV q1h for breakthrough pain. -path returned on 10/25 confirms gastric adenocarcinoma as primary without markers for breast cancer, oncology working on treatment plan and to visit with patient on Friday -port in place -underwent bedside paracentesis on 10/26 and drained 3.4L of clear yellow fluid, patient felt much better afterward 2. Breast masses -patient says she noticed them 1 month ago, had outpatient mammogram at [facility] -originally plan for biopsy as outpatient on 10/25, but this was missed due to being in the hospital -US bilateral breasts ordered, returned as ill-defined areas of heterogeneous, hypoechoic tissue concerning for malignancy -will defer to oncology guidance on whether biopsy is needed or not 3. Blurry vision, resolved - possibly secondary to fentanyl patch, will discontinue. - CT head with contrast to evaluate for possible metastatic disease ordered and negative. - likely due to pain medications - on 10/23 pain noted blurry vision gone 4. Severe acute protein calorie malnutrition - r/t inability to eat d/t nausea and epigastric discomfort and predicted increased kcal needs with metastatic cancer aeb severe weight loss of 7.3% over one month, GI symptoms of nausea and anorexia for 2 months, and inadequate PO per diet recall. -The patient is at much higher risk for medical and surgical complications because of his malnutrition. This increases the difficulty and complexity of medical and surgical interventions and increases the chances of poor outcomes such as morbidity and mortality. -started on TPN today, appreciate dietary and pharmacy involvement in care. -will need to increase caloric intake slowly to avoid refeeding syndrome. 5. SBO vs severe ileus -CT abd showed dilated loops of bowel, patient hasn't had BM in over a week but no significant stool on scans -per gen surg likely due to ascites and cancer not constipation, very little bowel tones present -patient defers NG at this time, her nausea is improving but not passing gas yet -continue TPN Code: Full code Dispo: probable discharge home, timing unclear, depending on path results, nutritional status with TPN and pain control. Time Spent With Patient Critical Care time: I spent a total of [] minutes of critical care time on this patient's care today; this time is exclusive of procedural time. Quality VTE Deep Vein Thrombosis/Pulmonary Embolism Present on Admission: No
[2022-10-26] MEDS: METOCLOPRAMIDE 10 MG/2 ML INJ IV ×3 (08:21→17:09)
[2022-10-26] MEDS: PANTOPRAZOLE 40 MG VIAL IV ×2 (09:37→20:00)
[2022-10-26] MEDS: ENOXAPARIN 40 MG/0.4 ML SYRINGE SUBCUT (09:38)
[2022-10-26] MEDS: OLANZapine ODT 10 MG TAB 5 MG PO (09:38)
[2022-10-26] MEDS: ALBUMIN HUMAN 25 GM/100 ML VIAL IV (11:09)
[2022-10-26] MEDS: FUROSEMIDE 40 MG/4 ML VIAL IV (12:39)
[2022-10-26 12:48] LABS: Magnesium 2.4 mg/dL (1.6-2.3); Phosphorous 4.6 mg/dL (2.5-4.5)
--- NOTE | 2022-10-26 14:06 | PM.PROC.1 ---
Procedures Date/Time Date of procedure: 10/26/22 Time of procedure: 13:30 General Procedure description: Prior to the procedure formal consent was obtained from the patient after discussion of risks and benefits of the procedure, and allowing the patient to ask any questions. Ultrasound was used to find a suitable pocket, and the site was marked. A time-out was performed. The site was then prepped and draped in usual sterile fashion, and a 16 gauge needle was inserted with return of clear yellow fluid. A total of approximately 3400 mL was obtained before drainage stopped. There was no bleeding and the patient tolerated the procedure well. There were no further complications. Dr. Atwood
--- NOTE | 2022-10-26 14:21 | DIET.CONS2 ---
Dietary Inpatient Consultation Note Admission Date: 10/16/2022 22:30 Pt tolerated 1.5L Clinimix E for the second day running at 62mL/h. Pts labs this am show high phosphorus (4.6) and high magnesium (2.4). Pt had paracentesis of abd ascites removing 3.4L fluid. Recc advancing pt to goal rate continuous TPN this evening, 2L Clinimix E running at 82mL/h. Pts goal TPN provides 100% kcal 100% protein and 100% fluid needs. Plan to move forward with cyclic TPN starting Friday evening as tolerated r/t elevated triglycerides. Diet: 10/26/22 11:56 NPO Diet Diet Modifications: NPO Type: NPO except for Ice Chips Nutrition Percent Meal Consumed NPO 10/24/22 18:00 Electronically Signed by: Jolie Dudley 10/26/22 14:21 Clinical Dietitian [address] [address]
--- NOTE | 2022-10-26 14:49 | DI.RAD.S_ITS ---
PROCEDURE: XR CHEST 1V INDICATIONS: acute chest pain, s/p paracentesis TECHNIQUE: One view of the chest was acquired. COMPARISON: [facility], CR, XR CHEST 1V, 10/24/2022, 16:16. FINDINGS: Surgical changes and devices: Right chest wall Port-A-Cath tip is in SVC. Lungs and pleura: Lungs are clear. No pleural effusions or pneumothorax. Mediastinum: Mediastinal contours appear normal. Heart size is normal. Bones and chest wall: No suspicious bony lesions. Overlying soft tissues appear unremarkable. IMPRESSION: No acute cardiopulmonary pathology. Dictated by: Mando Moctezuma M.D. on 10/26/2022 at 15:08 Approved by: Mando Moctezuma M.D. on 10/26/2022 at 15:11
--- NOTE | 2022-10-26 14:58 | CM.DPC ---
DCP: This CM called [facility] and spoke to Damian communication consultant pharmacist. This CM gave Damian the phone # of Coral Reyes MD at [facility] in [place] who may follow this pt as she has seen this pt multiple times. [phone]. Damian took the information and states that acceptance is pending and that is all they were needing thus far. Damian stated that they did not anticipate pt to be discharged until next week and that they do not provide IDPN over the weekend. This CM understood and just let Damian know that discharge for this pt was discussed in this am rounds and it may be sooner rather than later. Damian verbalized understanding. This CM let Damian know tht they could notify this CM at my ext of any needed documents. Ellie Jaeger, career education teacher.
[2022-10-26] MEDS: LIDOCAINE 2% INJ MDV 20ML 20 ML INJ (15:00)
[2022-10-26 15:56] LABS: Troponin I < 0.012 ng/mL (0.01-0.034)
[2022-10-26] MEDS: [UNRECOGNIZED DRUG - OTHER] IV (17:09)
[2022-10-26] MEDS: DEXT IV (17:09)
[2022-10-26] MEDS: MULTIVITAMIN IV (17:09)
[2022-10-26] MEDS: TRACE ELEMENTS IV (17:09)
[2022-10-26] MEDS: LYTES IV (17:09)
[2022-10-26] MEDS: CALCIUM IV (17:09)
[2022-10-26] MEDS: ONDANSETRON 4 MG/2 ML INJ IV (19:53)
[2022-10-27] MEDS: HYDROMORPHONE 1 MG INJ IV ×8 (00:22→22:20)
[2022-10-27 03:42] VITALS: BP 118/56; PULSE 123; RESP 18; TEMP 36.8; O2SAT 98
[2022-10-27] MEDS: LORazepam 2 MG/ML INJ 1 MG IV ×2 (03:46→22:35)
[2022-10-27] MEDS: ONDANSETRON 4 MG/2 ML INJ IV ×2 (06:42→22:20)
[2022-10-27] MEDS: PIPERACILLIN/TAZO 3.375 GM in SODIUM CHLORIDE 0.9% 100 ML IV ×3 (06:43→22:21)
[2022-10-27 07:55] LABS: Add Manual Diff / Slide Review NO; Basophils Percent Auto 0.5 % (0-2); Eosinophils Percent Auto 1.2 % (2-4); Hemoglobin 8.1 g/dL (12.0-16.0); Lymphocytes Absolute Auto 800 /uL (1100-4500); Lymphocytes Percent Auto 13.5 % (25-40); Mean Corpuscular HGB Conc 32.2 % (30-36); Mean Corpuscular Hemoglobin 23.4 PG (26-34); Mean Corpuscular Volume 72.6 fL (80-100); Neutrophils Absolute Auto 4500 /uL (1500-7000); Neutrophils Percent Auto 74.8 % (50-75); Platelet Count 276 X10^3/uL (150-400); Red Blood Cell Count 3.45 X10^6/uL (4.0-5.2); Red Cell Distribution Width 15.1 % (11.6-14.8); White Blood Cell Count 6.1 X10^3/uL (4.5-11.0)
[2022-10-27 07:56] LABS: Basophils Absolute Auto 0 /uL (0-100); Eosinophils Absolute Auto 100 /uL (0-450); Monocytes Absolute Auto 600 /uL (0-900)
[2022-10-27 08:00] VITALS: BP 106/58; PULSE 119; RESP 16; TEMP 35.6; O2SAT 97
[2022-10-27 08:11] LABS: BUN Creatinine Ratio 30.6 (6-22); Blood Urea Nitrogen 15 mg/dL (7-17); Calcium 7.6 mg/dL (8.4-10.2); Carbon Dioxide 32 mmol/L (22-32); Chloride 96 mmol/L (98-107); Estimated Glomerular Filt Rate > 60 mL/min (>60); Glucose 115 mg/dL (70-100); HEMOLYSIS < 15 (0-50); Potassium 3.4 mmol/L (3.4-5.1); Sodium 134 mmol/L (137-145)
[2022-10-27 08:14] LABS: Triglycerides 168 mg/dL (35-150)
[2022-10-27 08:21] LABS: Prealbumin 8.5 mg/dL (17.6-36.0)
[2022-10-27 08:44] LABS: Magnesium 2.2 mg/dL (1.6-2.3)
[2022-10-27] MEDS: METOCLOPRAMIDE 10 MG/2 ML INJ IV ×3 (09:26→18:32)
[2022-10-27] MEDS: PANTOPRAZOLE 40 MG VIAL IV ×2 (09:31→20:06)
[2022-10-27] MEDS: FUROSEMIDE 40 MG/4 ML VIAL IV (09:31)
[2022-10-27] MEDS: ENOXAPARIN 40 MG/0.4 ML SYRINGE SUBCUT (09:31)
[2022-10-27] MEDS: SODIUM CHLORIDE 0.9% FLUSH 10 ML IV ×2 (09:32→20:07)
[2022-10-27] MEDS: OLANZapine ODT 10 MG TAB 5 MG PO (09:53)
[2022-10-27 12:00] VITALS: BP 97/60; PULSE 123; RESP 19; TEMP 35.9; O2SAT 98
--- NOTE | 2022-10-27 14:13 | CM.DPC ---
Addendum entered by Ellie Jaeger R.N. 10/27/22 14:51: Dr. Kaufman was in IDT this am, not Dr. Fletcher. This CM spoke with family at length with regard to plan. Per TRINIDAD Buchanan, Dr. Kaufman states the is unable to accept pt, due to needs being met here and they are full. Also other hospitals are full at this time. This CM spoke with pt and family with translation of pt mom's sister that plan will be pain managment with attempt to go home and attain [facility] to support with IDPN therapy and [facility]. Family is in agreement. Pt is sleeping during this discussion. Original Note: DCP: This CM spoke about the plan for this pt with Coagulator, RICHARD Wiggins and RNChanel this am. We were in agreement and with collaboration with IDT Dr. Thomas during rounds, it is determined that pt will benefit from transfer to a larger hospital. [email or web address] has been contacting hospitals throughout the day to support with care for this pt. This RN spoke with pt's brother and sister in law with some teaching of how to utilize the caring [facility] website to support with communicating with family, friends and loved ones with regard to pt status if pt wishes for them to do so. This resource was provided to this CM by TRINIDAD Buchanan who also believes that family and patient will benefit from this resource. P: Transfer to Hospital who can provide further cancer care needs for this pt. Ellie Jaeger RN Case Manager
[2022-10-27 16:00] VITALS: BP 108/61; PULSE 114; RESP 18; TEMP 36; O2SAT 99
--- NOTE | 2022-10-27 17:33 | PM.PN.1 ---
Subjective Subjective Date Patient Seen: 10/27/22 Interval history: On admission, Niecy Woo is a klaus 27-year-old female with no medical history, medications, or surgical procedures.? Approximately 2 months ago the patient began to have increasing abdominal pain and discomfort difficulty eating,? she was seen several times at [facility] and was treated for constipation.? The patient has had a decreased appetite, has significant pain with eating has lost 25 lb in 2 months occasional shortness of breath, increased fatigue, increasing abdominal distention, notes that she now wakes up with abdominal pain every day an average of 6/10 it is constant it worsens whenever she tries to eat in the epigastric area with burning which then radiates to her back she has also developed low back pain.? She notes that she has 1-2 small bowel movements possibly every 1-2 days.? She says over last 5 days prior to admission, she is been unable to work due to her abdominal pain getting worse. She was drinking fluids such as Pedialyte, Gatorade and water however food makes her extremely nauseous.? She notes her abdomen was getting increasingly more distended and painful 06/17 which brought her in to the ER.? The patient also notes that she had an abnormal mammogram and is in the process of being scheduled for multiple breast biopsies.? Patient notes that her father of stomach cancer at the age of 43, 2 of her aunts have had cancer but are still living she is unsure as to the type.? Patient is a single mother with 2 daughters 5-year-old and 1-year-old, and lives with her mother, brother and 2 children.? Patient states that she vaped for approximately 2 years and quit 3 months ago, she drinks only socially occasionally, denies any recreational substance use, patient has not traveled, has not had exposure to illness, has not had any new medications other than the treatments for constipation.? She denies dysphagia, diarrhea, melena,, urgency dysuria polyuria hematuria, fever, body aches, chills, vomiting, diaphoresis, denies any leg edema, chest pain, irregular heart rate, palpitations, syncope, weakness, numbness, tingling, any changes to skin, breast discharge, any recent illness injury or trauma. Exam Vital Signs (past 8 hours): - 10/27/22 12:00 10/27/22 16:00 Temperature 96.7 F L 96.8 F L Pulse Rate 123 H 114 H Respiratory Rate 19 18 Blood Pressure 97/60 108/61 Pulse Oximetry 98 99 Oxygen Flow Rate 0 0 Oxygen Delivery Method Room Air Oxygen Flow Rate 0 Narrative Exam Narrative: General: no acute distress, ill-appearing, thin Cardio:? Tachycardic regular rate and rhythm Abdomen:? Abdomen is distended, soft, diffusely tender, increased ascites but not tense, decreased to absent bowel sounds Ext: no edema or joint effusion Breasts: hard masses in both breasts Objective Labs 10/27/22 06:38 10/27/22 06:38 Labs: Laboratory Results - last 24 hr 10/27/22 10/27/22 10/27/22 06:38 06:38 06:38 WBC 6.1 RBC 3.45 L Hgb 8.1 L Hct 25.0 L MCV 72.6 L MCH 23.4 L MCHC 32.2 RDW 15.1 H Plt Count 276 Neut % (Auto) 74.8 Lymph % (Auto) 13.5 L [place] % (Auto) 10.0 Eos % (Auto) 1.2 L Baso % (Auto) 0.5 Neut # (Auto) 4500 Lymph # (Auto) 800 L [place] # (Auto) 600 Eos # (Auto) 100 Baso # (Auto) 0 Sodium 134 L Potassium 3.4 Chloride 96 L Carbon Dioxide 32 BUN 15 Creatinine 0.49 L Estimated GFR > 60 BUN/Creatinine Ratio 30.6 H Glucose 115 H Calcium 7.6 L Magnesium Prealbumin 8.5 L Triglycerides 168 H 10/27/22 06:38 WBC RBC Hgb Hct MCV MCH MCHC RDW Plt Count Neut % (Auto) Lymph % (Auto) [place] % (Auto) Eos % (Auto) Baso % (Auto) Neut # (Auto) Lymph # (Auto) [place] # (Auto) Eos # (Auto) Baso # (Auto) Sodium Potassium Chloride Carbon Dioxide BUN Creatinine Estimated GFR BUN/Creatinine Ratio Glucose Calcium Magnesium 2.2 Prealbumin Triglycerides [facility] Medical History Healthy adult Family History Father Cancer Aunt Cancer Social History household members: family and children Smoking Status: Former smoker Assessment & Plan Assessment & Plan narrative: 1. Metastatic gastric adenocarcinoma, with malignant ascites causing severe abd pain and NV -CT imaging showed ascites and evidence of peritoneal carcinomatosis and omental caking -pelvic ultrasound showed no ovarian mass -CT imaging showed gastric wall thickening, and question of gallbladder mass, suspect higher likelihood of gastric cancer. EGD 10/18 with subtantial thickening and multiple biopsies obtained. -CA-125 elevated, CEA negative. -para removed 3L, cytology ordered (? if sent first time) negative for SBP with low number of PMNs. Ascites fluid albumin 2.6. SAAG >1.1. Reeval on 10/21 without enough fluid for paracentesis. -Not tolerating any sort of nutrition, some concern for very poor absorption. Start TPN yesterday and will continue -increased PPI to 40 mg BID, added sucralfate. Otherwise pain not controlled with oral medications. Added fentanyl patch 10/20 but patient only had sleepiness without improvement of pain. Therfore increased to 25 mcg today. -with ascites, tried low dose diuretic to see if this can prevent re-accumulation of fluid. She did not tolerate with hypotension and tachycardia improved with fluids. Will likely need serial paracentesis. Last paracentesis was yesterday. -at time of discharge will likely need referral for urgent oncology appointment and a oncologic surgeon. Discussed case today with Dr. Refugio Lewis, solid tumor Oncology at and he will put in a referral to outpatient followup with Oncology at . He indicated the ongoing treatment with TPN is appropriate to ready the patient for eventual discharge and out patient treatment. Patient/unit will be contacted on Oct 30 for this followup with . -spoke with Dr. Collier oncology 10/22 who recommended checking additional tumor markers AFP and CA 15-3. He will follow along -spoke with Dr. Dennis gen surg about possible omental laproscopic biopsy vs colonoscopy, she will discuss with onc -added 5mg SL zyprexa daily for NV, continue po SL morphine 5-15mg q4h for cancer pain. Use dilaudid 1mg IV q1h for breakthrough pain. -path returned on 10/25 confirms gastric adenocarcinoma as primary without markers for breast cancer, oncology working on treatment plan and to visit with patient on Friday -port in place -underwent bedside paracentesis on 10/26 and drained 3.4L of clear yellow fluid, patient felt much better afterward 2. Breast masses -patient says she noticed them 1 month ago, had outpatient mammogram at [facility] -originally plan for biopsy as outpatient on 10/25, but this was missed due to being in the hospital -US bilateral breasts ordered, returned as ill-defined areas of heterogeneous, hypoechoic tissue concerning for malignancy -will defer to oncology guidance on whether biopsy is needed or not 3. Blurry vision, resolved ?- possibly secondary to fentanyl patch, will discontinue. However trying higher dose today. ?- CT head with contrast to evaluate for possible metastatic disease ordered and negative. ?- likely due to pain medications ?- on 10/23 pain noted blurry vision gone after initial symptoms 4. Severe acute protein calorie malnutrition ?- r/t inability to eat d/t nausea and epigastric discomfort and predicted increased kcal needs with metastatic cancer aeb? severe weight loss of 7.3% over one month, GI symptoms of nausea and anorexia for 2 months, and inadequate PO per diet recall. -The patient is at much higher risk for medical and surgical complications because of his malnutrition.? This increases the difficulty and complexity of medical and surgical interventions and increases the chances of poor outcomes such as morbidity and mortality. -started on TPN today, appreciate dietary and pharmacy involvement in care. -will need to increase caloric intake slowly to avoid refeeding syndrome. Best also to treat with Thiamine 5. SBO vs severe ileus -CT abd showed dilated loops of bowel, patient hasn't had BM in over a week but no significant stool on scans -per gen surg likely due to ascites and cancer not constipation, very little bowel tones present -patient defers NG at this time, her nausea is improving but not passing gas yet -continue TPN Follow labs and clinically. Code: Full code Dispo: probable discharge home, timing unclear, depending on path results, nutritional status with TPN and pain control. Time Spent With Patient Critical Care time: I spent a total of [] minutes of critical care time on this patient's care today; this time is exclusive of procedural time. Quality VTE Deep Vein Thrombosis/Pulmonary Embolism Present on Admission: No
[2022-10-27] MEDS: diphenhydrAMINE 50 MG/ML VIAL 25 MG IV (18:30)
[2022-10-27] MEDS: TRACE ELEMENTS IV (19:05)
[2022-10-27] MEDS: CALCIUM IV (19:05)
[2022-10-27] MEDS: LYTES IV (19:05)
[2022-10-27] MEDS: [UNRECOGNIZED DRUG - OTHER] IV (19:05)
[2022-10-27] MEDS: DEXT IV (19:05)
[2022-10-27] MEDS: MULTIVITAMIN IV (19:05)
[2022-10-27 20:00] VITALS: BP 118/71; PULSE 124; RESP 19; TEMP 36.3; O2SAT 97
[2022-10-27] MEDS: fentaNYL 25 MCG/PATCH TOP (20:06)
[2022-10-28] VITALS: BP 110/59; PULSE 122; RESP 21; TEMP 36.6; O2SAT 97
[2022-10-28] MEDS: HYDROMORPHONE 1 MG INJ IV ×6 (01:07→16:08)
[2022-10-28] MEDS: diphenhydrAMINE 50 MG/ML VIAL 25 MG IV ×3 (01:07→14:10)
[2022-10-28 04:00] VITALS: BP 111/68; PULSE 119; RESP 19; TEMP 36.4; O2SAT 97
[2022-10-28] MEDS: ONDANSETRON 4 MG/2 ML INJ IV ×2 (05:03→16:08)
[2022-10-28] MEDS: LORazepam 2 MG/ML INJ 1 MG IV ×3 (05:59→14:47)
[2022-10-28] MEDS: PIPERACILLIN/TAZO 3.375 GM in SODIUM CHLORIDE 0.9% 100 ML IV ×3 (06:00→21:39)
[2022-10-28 06:48] LABS: BUN Creatinine Ratio 31.5 (6-22); Blood Urea Nitrogen 17 mg/dL (7-17); Calcium 7.6 mg/dL (8.4-10.2); Carbon Dioxide 33 mmol/L (22-32); Chloride 95 mmol/L (98-107); Estimated Glomerular Filt Rate > 60 mL/min (>60); Glucose 121 mg/dL (70-100); HEMOLYSIS < 15 (0-50); Potassium 3.3 mmol/L (3.4-5.1); Sodium 131 mmol/L (137-145)
[2022-10-28 06:56] LABS: Add Manual Diff / Slide Review NO; Basophils Absolute Auto 0 /uL (0-100); Basophils Percent Auto 0.3 % (0-2); Eosinophils Absolute Auto 100 /uL (0-450); Eosinophils Percent Auto 1.6 % (2-4); Hematocrit 24.6 % (36-46); Lymphocytes Absolute Auto 800 /uL (1100-4500); Lymphocytes Percent Auto 11.1 % (25-40); Mean Corpuscular HGB Conc 32.5 % (30-36); Mean Corpuscular Hemoglobin 23.4 PG (26-34); Mean Corpuscular Volume 71.9 fL (80-100); Monocytes Absolute Auto 700 /uL (0-900); Monocytes Percent Auto 9.1 % (3-14); Neutrophils Absolute Auto 5800 /uL (1500-7000); Neutrophils Percent Auto 77.9 % (50-75); Platelet Count 297 X10^3/uL (150-400); Red Blood Cell Count 3.42 X10^6/uL (4.0-5.2); Red Cell Distribution Width 15.1 % (11.6-14.8); White Blood Cell Count 7.5 X10^3/uL (4.5-11.0)
[2022-10-28 09:27] VITALS: BP 105/63; PULSE 110; RESP 16; TEMP 36.2; O2SAT 98
[2022-10-28] MEDS: PANTOPRAZOLE 40 MG VIAL IV ×2 (09:46→21:18)
[2022-10-28] MEDS: ENOXAPARIN 40 MG/0.4 ML SYRINGE SUBCUT (09:46)
[2022-10-28] MEDS: OLANZapine ODT 10 MG TAB 5 MG PO (09:53)
[2022-10-28] MEDS: METOCLOPRAMIDE 10 MG/2 ML INJ IV ×3 (09:54→17:25)
[2022-10-28] MEDS: FUROSEMIDE 40 MG/4 ML VIAL IV (09:54)
[2022-10-28] MEDS: SODIUM CHLORIDE 0.9% FLUSH 10 ML IV ×2 (09:54→21:19)
[2022-10-28] MEDS: BISACODYL 10 MG SUPP PR (10:03)
[2022-10-28 14:10] VITALS: BP 120/60; PULSE 121; RESP 14; TEMP 36.2; O2SAT 96
[2022-10-28] MEDS: POTASSIUM CHLORIDE IN WATER 10 MEQ/100 ML PIGGYBACK 100 MEQ IV ×4 (16:10→19:19)
[2022-10-28 16:30] VITALS: BP 115/73; PULSE 120; RESP 16; TEMP 36.5; O2SAT 97
--- NOTE | 2022-10-28 16:47 | P.PN_ITS ---
Subjective Subjective Date Patient Seen: 10/28/22 Interval history: On admission, Niecy Woo is a klaus 27-year-old female with no medical history, medications, or surgical procedures.? Approximately 2 months ago the patient began to have increasing abdominal pain and discomfort difficulty eating,? she was seen several times at [facility] and was treated for constipation.? The patient has had a decreased appetite, has significant pain with eating has lost 25 lb in 2 months occasional shortness of breath, increased fatigue, increasing abdominal distention, notes that she now wakes up with abdominal pain every day an average of /10 it is constant it worsens whenever she tries to eat in the epigastric area with burning which then radiates to her back she has also developed low back pain.? She notes that she has 1-2 small bowel movements possibly every 1-2 days.? She says over last 5 days prior to admission, she is been unable to work due to her abdominal pain getting worse. She was drinking fluids such as? Pedialyte, Gatorade and water however food makes her extremely nauseous.? She notes her abdomen was getting increasingly more distended and painful 06/17 which brought her in to the ER.? The patient also notes that she had an abnormal mammogram and is in the process of being scheduled for multiple breast biopsies.? Patient notes that her father of stomach cancer at the age of 43, 2 of her aunts have had cancer but are still living she is unsure as to the type.? Patient is a single mother with 2 daughters 5-year-old and 1-year-old, and lives with her mother, brother and 2 children.? Patient states that she vaped for approximately 2 years and quit 3 months ago, she drinks only socially occasionally, denies any recreational substance use, patient has not traveled, has not had exposure to illness, has not had any new medications other than the treatments for constipation.? She denies dysphagia, diarrhea, melena,, urgency dysuria polyuria hematuria, fever, body aches, chills, vomiting, diaphoresis, denies any leg edema, chest pain, irregular heart rate, palpitations, syncope, weakness, numbness, tingling, any changes to skin, breast discharge, any recent illness injury or trauma. Today nurse indicated could benefit from increased dose for breakthrough pain and also some regular anti- nausea meds since the fentanyl is slightly making her nauseous. Tolerlating TPN and infusion rate can be increased today. Had a small formed bowel movement today. Exam Vital Signs (past 8 hours): - 10/28/22 09:27 10/28/22 14:10 10/28/22 16:30 Temperature 97.2 F L 97.1 F L 97.7 F Pulse Rate 110 H 121 H 120 H Respiratory Rate 16 14 16 Blood Pressure 105/63 120/60 115/73 Pulse Oximetry 98 96 97 Oxygen Flow Rate 0 0 0 Oxygen Delivery Method Room Air Oxygen Flow Rate 0 Narrative Exam Narrative: General: no acute distress, ill-appearing, thin Cardio:? Tachycardic regular rate and rhythm Abdomen:? Abdomen is distended, soft, diffusely tender, increased ascites but not tense, decreased bowel sounds Ext: no edema or joint effusion Breasts: hard masses in both breasts Objective Labs 10/28/22 06:15 10/28/22 06:15 Labs: Laboratory Results - last 24 hr 10/28/22 10/28/22 06:15 06:15 WBC 7.5 RBC 3.42 L Hgb 8.0 L Hct 24.6 L MCV 71.9 L MCH 23.4 L MCHC 32.5 RDW 15.1 H Plt Count 297 Neut % (Auto) 77.9 H Lymph % (Auto) 11.1 L [place] % (Auto) 9.1 Eos % (Auto) 1.6 L Baso % (Auto) 0.3 Neut # (Auto) 5800 Lymph # (Auto) 800 L [place] # (Auto) 700 Eos # (Auto) 100 Baso # (Auto) 0 Sodium 131 L Potassium 3.3 L Chloride 95 L Carbon Dioxide 33 H BUN 17 Creatinine 0.54 Estimated GFR > 60 BUN/Creatinine Ratio 31.5 H Glucose 121 H Calcium 7.6 L PFSH Medical History Healthy adult Family History Father Cancer Aunt Cancer Social History household members: family and children Smoking Status: Former smoker Assessment & Plan Assessment & Plan narrative: 1. Metastatic gastric adenocarcinoma, with malignant ascites causing severe abd pain and NV on presentaion -CT imaging showed ascites and evidence of peritoneal carcinomatosis and omental caking -pelvic ultrasound showed no ovarian mass -CT imaging showed gastric wall thickening, and question of gallbladder mass, suspect higher likelihood of gastric cancer. EGD 10/18 with subtantial thickening and multiple biopsies obtained. -CA-125 elevated, CEA negative. -para removed 3L, cytology ordered (? if sent first time) negative for SBP with low number of PMNs. Ascites fluid albumin 2.6. SAAG >1.1. Reeval on 10/21 without enough fluid for paracentesis. -Not tolerating any sort of nutrition, some concern for very poor absorption. Start TPN yesterday and will continue -increased PPI to 40 mg BID, added sucralfate. Otherwise pain not controlled with oral medications. Added fentanyl patch 10/20 but patient only had sleepiness without improvement of pain. Therfore increased to 25 mcg today. -with ascites, tried low dose diuretic to see if this can prevent re- accumulation of fluid. She did not tolerate with hypotension and tachycardia improved with fluids. Will likely need serial paracentesis. Last paracentesis was yesterday. -at time of discharge will likely need referral for urgent oncology appointment and a oncologic surgeon.?Discussed case today with Dr. Refugio Lewis, solid tumor Oncology at and he will put in a referral to outpatient followup with Oncology at . He indicated the ongoing treatment with TPN is appropriate to ready the patient for eventual discharge and outpatient treatment with oncology. Patient/unit will be contacted on Oct 30 for this followup with . -previous hospitalist spoke with Dr. Collier oncology 10/22 who recommended checking additional tumor markers AFP and CA 15-3. He will follow along -previous hospitalist spoke with Dr. Dennis gen surg about possible omental laproscopic biopsy vs colonoscopy, she will discuss with onc -added 5mg SL zyprexa daily for NV, continue po SL morphine 5-15mg q4h for cancer pain. Use dilaudid 1mg IV q1h for breakthrough pain. -path returned on 10/25 confirms gastric adenocarcinoma as primary without markers for breast cancer, oncology working on treatment plan and to visit with patient on Friday -port in place -underwent bedside paracentesis on 10/26 and drained 3.4L of clear yellow fluid, patient felt much better afterward 2. Breast masses -patient says she noticed them 1 month ago, had outpatient mammogram at [facility] -originally plan for biopsy as outpatient on 10/25, but this was missed due to being in the hospital -US bilateral breasts ordered, returned as ill-defined areas of heterogeneous, hypoechoic tissue concerning for malignancy -will defer to oncology guidance on whether biopsy is needed or not 3. Blurry vision, resolved ?- possibly secondary to fentanyl patch, will discontinue. However trying higher dose today. ?- CT head with contrast to evaluate for possible metastatic disease ordered and negative. ?- likely due to pain medications ?- on 10/23 pain noted blurry vision gone after initial symptoms 4. Severe acute protein calorie malnutrition ?- r/t inability to eat d/t nausea and epigastric discomfort and predicted increased kcal needs with metastatic cancer aeb? severe weight loss of 7.3% over one month, GI symptoms of nausea and anorexia for 2 months, and inadequate PO per diet recall. -The patient is at much higher risk for medical and surgical complications because of his malnutrition.? This increases the difficulty and complexity of medical and surgical interventions and increases the chances of poor outcomes such as morbidity and mortality. -started on TPN, appreciate dietary and pharmacy involvement in care. -will need to increase caloric intake slowly to avoid refeeding syndrome. Best also to treat with Thiamine 5. SBO vs severe ileus -CT abd showed dilated loops of bowel, patient hasn't had BM in over a week but no significant stool on scans -per gen surg likely due to ascites and cancer not constipation, very little bowel tones present -patient defers NG at this time, her nausea is improving but not passing gas yet -continue TPN - had small stool with bowel movement today 6. Nausea - with Fentynal patch, treat with sl ondansetron every 8 hours as scheduled dose. (chose this medication because can be used at home) 7. Pain control - Fentynal 25 mcg per 72 hours iwth break through medication increased to dilaudid 2 mg IV every 4 hours as needed. will follow and change as needed. Follow labs and clinically. Code: Full code Dispo: probable discharge home, timing unclear, depending on path results, nutritional status with TPN and pain control. Time Spent With Patient Critical Care time: I spent a total of [] minutes of critical care time on this patient's care today; this time is exclusive of procedural time. Quality VTE Deep Vein Thrombosis/Pulmonary Embolism Present on Admission: No
--- NOTE | 2022-10-28 16:47 | DIET.CONS2 ---
Dietary Inpatient Consultation Note Admission Date: 10/16/2022 22:30 Recc advancing pt to goal rate continuous TPN this evening, 2L Clinimix E running at 82mL/h. Pts goal TPN provides 100% kcal 100% protein and 100% fluid needs. Goal to change to cyclic feeding for d/c. Diet: 10/26/22 11:56 NPO Diet Diet Modifications: NPO Type: NPO except for Ice Chips Electronically Signed by: Jolie Dudley 10/28/22 16:47 Clinical Dietitian [address] [address]
[2022-10-28] MEDS: HYDROMORPHONE 2 MG INJ IV ×4 (17:06→21:19)
[2022-10-28] MEDS: [UNRECOGNIZED DRUG - OTHER] IV (17:35)
[2022-10-28] MEDS: MULTIVITAMIN IV (17:35)
[2022-10-28] MEDS: CALCIUM IV (17:35)
[2022-10-28] MEDS: LYTES IV (17:35)
[2022-10-28] MEDS: DEXT IV (17:35)
[2022-10-28] MEDS: FAT EMULSIONS 50 GM/250 ML EMULSION IV (17:35)
[2022-10-28] MEDS: TRACE ELEMENTS IV (17:35)
[2022-10-28 20:00] VITALS: BP 115/65; PULSE 121; RESP 19; TEMP 36.3; O2SAT 97
[2022-10-28] MEDS: ONDANSETRON 4 MG ODT 8 MG SL (21:18)
[2022-10-29] VITALS: BP 117/62; PULSE 129; RESP 17; TEMP 36.3; O2SAT 97
[2022-10-29] MEDS: LORazepam 2 MG/ML INJ 1 MG IV ×3 (01:25→22:43)
[2022-10-29] MEDS: HYDROMORPHONE 2 MG INJ IV ×8 (02:32→22:43)
[2022-10-29 04:00] VITALS: BP 112/55; PULSE 133; RESP 16; TEMP 36.4; O2SAT 98
[2022-10-29] MEDS: diphenhydrAMINE 50 MG/ML VIAL 25 MG IV ×2 (04:17→12:37)
[2022-10-29 04:35] LABS: BUN Creatinine Ratio 32.7 (6-22); Blood Urea Nitrogen 18 mg/dL (7-17); Calcium 7.6 mg/dL (8.4-10.2); Carbon Dioxide 33 mmol/L (22-32); Chloride 95 mmol/L (98-107); Estimated Glomerular Filt Rate > 60 mL/min (>60); Glucose 126 mg/dL (70-100); HEMOLYSIS < 15 (0-50); Magnesium 1.9 mg/dL (1.6-2.3); Phosphorous 3.9 mg/dL (2.5-4.5); Potassium 3.6 mmol/L (3.4-5.1); Sodium 132 mmol/L (137-145)
[2022-10-29 04:43] LABS: Hematocrit 24.6 % (36-46); Hemoglobin 7.8 g/dL (12.0-16.0); Mean Corpuscular HGB Conc 31.8 % (30-36); Mean Corpuscular Hemoglobin 23.2 PG (26-34); Platelet Count 296 X10^3/uL (150-400); Red Blood Cell Count 3.37 X10^6/uL (4.0-5.2); White Blood Cell Count 9.4 X10^3/uL (4.5-11.0)
[2022-10-29 05:00] LABS: Add Manual Diff / Slide Review YES
[2022-10-29 05:30] LABS: Neutrophils Absolute Manual 7238 /uL (3000-5900); Total Cells Counted 100
[2022-10-29 05:32] LABS: Anisocytosis 1+; Hypochromasia 1+
[2022-10-29 05:33] LABS: Microcytosis 1+
[2022-10-29] MEDS: PIPERACILLIN/TAZO 3.375 GM in SODIUM CHLORIDE 0.9% 100 ML IV ×3 (05:40→22:26)
[2022-10-29] MEDS: ONDANSETRON 4 MG ODT 8 MG SL ×3 (05:40→21:34)
[2022-10-29] MEDS: METOCLOPRAMIDE 10 MG/2 ML INJ IV ×3 (07:18→17:12)
[2022-10-29 08:25] LABS: Bacteria Det by PCR Univ WA NONE DETECTED
[2022-10-29] MEDS: OLANZapine ODT 10 MG TAB 5 MG PO (09:03)
[2022-10-29] MEDS: PANTOPRAZOLE 40 MG VIAL IV ×2 (09:03→21:34)
[2022-10-29] MEDS: FUROSEMIDE 40 MG/4 ML VIAL IV (09:03)
[2022-10-29] MEDS: ENOXAPARIN 40 MG/0.4 ML SYRINGE SUBCUT (09:04)
[2022-10-29] MEDS: SODIUM CHLORIDE 0.9% FLUSH 10 ML IV ×4 (09:04→22:26)
--- NOTE | 2022-10-29 11:21 | DIET.CONS2 ---
Dietary Inpatient Consultation Note Admission Date: 10/16/2022 22:30 Pt tolerating continuous TPN at goal rate overnight. Pt trialing small bites of yogurt as she is feeling hungry. Plan to transition pt to cyclic TPN tomorrow, 18h on, 6h off to give pts liver a rest and allow her to move around without lines. Diet: 10/29/22 Breakfast General (Regular) Diet Diet Modifications: Electronically Signed by: Jolie Dudley 10/29/22 11:21 Clinical Dietitian [address] [address]
[2022-10-29 12:10] VITALS: BP 120/62; PULSE 133; RESP 18; TEMP 36.2; O2SAT 98
--- NOTE | 2022-10-29 12:22 | CM.DPC ---
Addendum entered by Annette Velasco R.N. 10/29/22 13:22: Addi at [facility] called back, stated that he had not been able to access [employer] to access patient's chart. Asked for update on formula. Let him know that this [employer]ician can fax over updated medication list showing formula, and enamel shader's notes from today. Asked him if cost was priced out, and he indicated this insurance should cover. Faxed over current med sheets and today's dietary note. Original Note: DCP Cont: Discussed patient during team rounds. It is noted that patient is improving, doing well on TPN. At this time, hospitalist is working on pain control. [facility] provider at [facility], as indicated by DC Paint Technician, Dr. Coral Reyes, is following patient. Patient is also supposed to have [facility]. Called over at [facility] and left Addi a message, to ensure that out of pocked cost has been discussed, and that pharmacist has everything that they need. If no response from Addi today, will reach out with [facility] pharmacist. Patient was able to tolerate some yogurt today as well, and appetite is improving. P: DCP to continue to follow. Plan is home with [facility] and [facility]. Annette Velasco RN/Tipple Engineer
--- NOTE | 2022-10-29 12:53 | P.CONONC_ITS ---
History of Present Illness - Consult Narrative Reason for consult: Metastatic gastric cancer Narrative: Niecy Stokes is a 27 year old female Who was recently admitted for abdominal pain distended abdomen starting in June 2022. She has experienced a 25 lb weight loss since then as well. During the patient's admission she did have a paracentesis with removal of 3 L of serosanguineous fluid. She underwent EGD with multiple biopsies of the esophagus in stomach which showed adenocarcinoma consistent with upper GI etiology. CT imaging shows ascites and peritoneal carcinomatosis with omental caking. She continues to be hospitalized due to severe pain and is currently on [id number] analgesics. She is also on TPN due to poor nutritional intake. She does have severe acute protein calorie malnutrition. Her current pain regimen consists of fentanyl 25 mcg per 72 hours and as needed Dilaudid IV. The patient reports that her father did of gastric cancer. CC: LINDA Sevilla - Pain Details Pain Intensity: 3 Pain Scale Used: Numeric (0 - 10) Home Medications and Allergies Home Medications Medication Instructions Recorded Confirmed Type docusate sodium 100 mg capsule 100 mg PO BID 10/16/22 10/16/22 History ondansetron HCl 4 mg tablet 4 mg PO Q8H 10/16/22 10/16/22 History sennosides 8.6 mg tablet (senna) 8.6 mg PO DAILY 10/16/22 10/16/22 History sucralfate 1 gram tablet 1 g PO 4XD 10/16/22 10/16/22 History fluorouracil 2.5 gram/50 mL 4,000 mg (80 mL) IV NOW 10/29/22 Rx intravenous solution CHEMOTHERAPY #1 device Allergies Allergy/AdvReac Type Severity Reaction Status Date / Time No Known Drug Allergies Allergy Verified 10/16/22 17:29 Medical History - Medical, Surgical, Family History Medical History: Medical History (Last Reviewed 10/17/22 @ 02:47 by LINDA Sevilla) Healthy adult Family History: Family History (Last Reviewed 10/17/22 @ 02:48 by LINDA Sevilla) Father Cancer Aunt Cancer - Social History Smoking Status: Former smoker Review of Systems - Patient Self-Reported Symptoms SR Constitution: Weight loss/gain SR eye issues: Vision changes SR Gastrointestinal issues: Poor or no appetite, Abdominal pain SR Musculoskeletal issues: Muscle weakness SR Neuro issues: Lightheaded/dizzy Exam Vital signs: Vital Signs Temp Pulse Resp BP Pulse Ox O2 Del Method O2 Flow Rate 10/29/22 12:10 97.1 F L 133 H 18 120/62 98 0 10/29/22 07:00 Room Air 10/29/22 04:00 97.6 F 133 H 16 112/55 L 98 0 10/28/22 19:00 Room Air 10/29/22 00:00 97.4 F L 129 H 17 117/62 97 0 10/28/22 20:00 97.3 F L 121 H 19 115/65 97 0 10/28/22 16:30 97.7 F 120 H 16 115/73 97 0 10/28/22 14:10 97.1 F L 121 H 14 120/60 96 0 Intake and Output 10/28/22 10/29/22 10/29/22 23:59 07:59 15:59 Intake Total 1922126 100 / 200 100 / 200 Output Total 150 / 1600 350 / 1425 1075 / 1425 Balance 1777 / 527 -250 / -1225 -975 / -1225 Intake: IV 1926 100 / 200 100 / 200 Fat Emulsions 50 gm In 250 ml @ 0 / 0 25 mls/hr IV MoWeFr@1800 [facility] Rx#:[id number] Aa 5 %/Calcium/Lytes/Dext 20 % 1527 / 1527 1,500 ml @ 63.625 mls/hr IV 1800 HANNAH with Multivitamin 5 ml with Trace Elements 1 ml with Thiamine 100 mg with Potassium Chloride 40 meq Rx#:[id number] Piperacillin/Tazo 3.375 gm In 100 / 300 100 / 200 100 / 200 Sodium Chloride 0.9% 100 ml @ 25 mls/hr IV Q8H [facility] Rx#: [id number] Potassium Chloride in Water 10 300 / 300 meq In 100 ml @ 100 mls/hr IV Q1H [facility] Rx#:[id number] Output: Urine 350 / 350 Urine Amount (Catheter) 150 / 1600 1075 / 1075 - Constitutional positive mild distress Comments: Cachectic appearing young female - Routine HEENT Exam Head: Present: normocephalic - Routine Neck Exam Present: supple - Routine Abdominal Exam Present: tenderness (Distended abdomen with fluid wave), distended Bowel sounds/abdominal exam: hypoactive - Routine Neurological Exam Present: altered mental status - Routine Psychiatric Exam Present: normal affect Results - Labs Laboratory Last Values WBC 9.4 X10^3/uL (4.5-11.0) 10/29/22 04:06 RBC 3.37 X10^6/uL (4.0-5.2) L 10/29/22 04:06 Hgb 7.8 g/dL (12.0-16.0) L 10/29/22 04:06 Hct 24.6 % (36-46) L 10/29/22 04:06 MCV 73.0 fL (80-100) L 10/29/22 04:06 MCH 23.2 PG (26-34) L 10/29/22 04:06 MCHC 31.8 % (30-36) 10/29/22 04:06 RDW 15.0 % (11.6-14.8) H 10/29/22 04:06 Plt Count 296 X10^3/uL (150-400) 10/29/22 04:06 Neut % (Auto) Not Reportable 10/29/22 04:06 Lymph % (Auto) Not Reportable 10/29/22 04:06 [place] % (Auto) Not Reportable 10/29/22 04:06 Eos % (Auto) Not Reportable 10/29/22 04:06 Baso % (Auto) Not Reportable 10/29/22 04:06 Neut # (Auto) 5800 /uL (9025-4036) 10/28/22 06:15 Lymph # (Auto) Not Reportable 10/29/22 04:06 [place] # (Auto) Not Reportable 10/29/22 04:06 Eos # (Auto) 100 /uL (0-450) 10/28/22 06:15 Baso # (Auto) Not Reportable 10/29/22 04:06 Total Counted 100 10/29/22 04:06 Seg Neutrophils % 70.0 % (38-70) 10/29/22 04:06 Band Neutrophils % 7.0 % (3-7) 10/29/22 04:06 Lymphocytes % (Manual) 16.0 % (25-45) L 10/29/22 04:06 Monocytes % (Manual) 5.0 % (2-11) 10/29/22 04:06 Eosinophils % (Manual) 1.0 % (2-4) L 10/29/22 04:06 Metamyelocytes % 1.0 % (-0) H 10/29/22 04:06 Neutrophils # (Manual) 7238 /uL (2040-2200) H 10/29/22 04:06 RBC Morphology See below 10/29/22 04:06 Hypochromasia 1+ H 10/29/22 04:06 Anisocytosis 1+ H 10/29/22 04:06 Microcytosis 1+ H 10/29/22 04:06 PT 13.9 SECONDS (10.1-12.7) H 10/17/22 08:40 INR 1.2 (0.9-1.3) 10/17/22 08:40 Sodium 132 mmol/L (137-145) L 10/29/22 04:06 Potassium 3.6 mmol/L (3.4-5.1) 10/29/22 04:06 Chloride 95 mmol/L (98-107) L 10/29/22 04:06 Carbon Dioxide 33 mmol/L (22-32) H 10/29/22 04:06 BUN 18 mg/dL (7-17) H 10/29/22 04:06 Creatinine 0.55 mg/dL (0.52-1.04) 10/29/22 04:06 Estimated GFR > 60 mL/min (>60) 10/29/22 04:06 BUN/Creatinine Ratio 32.7 (6-22) H 10/29/22 04:06 Glucose 126 mg/dL (70-100) H 10/29/22 04:06 Lactate 1.8 mmol/L (0.7-2.1) 10/24/22 02:45 Calcium 7.6 mg/dL (8.4-10.2) L 10/29/22 04:06 Phosphorus 3.9 mg/dL (2.5-4.5) 10/29/22 04:06 Magnesium 1.9 mg/dL (1.6-2.3) 10/29/22 04:06 Total Bilirubin 0.5 mg/dL (0.2-1.3) 10/25/22 02:10 AST 17 IU/L (14-36) 10/25/22 02:10 ALT 11 IU/L (<35) 10/25/22 02:10 Alkaline Phosphatase 82 U/L (38-126) 10/25/22 02:10 Total Creatine Kinase 29 U/L (30-135) L 10/21/22 01:39 CK-MB (CK-2) TNP 10/21/22 01:39 CK-MB (CK-2) Rel Index TNP 10/21/22 01:39 Troponin I < 0.012 ng/mL (0.01-0.034) 10/26/22 15:15 Total Protein 5.1 g/dL (6.3-8.2) L 10/25/22 02:10 Albumin 2.3 g/dL (3.5-5.0) L 10/25/22 02:10 Globulin 2.8 g/dL (1.7-4.1) 10/25/22 02:10 Albumin/Globulin Ratio 0.8 (1.0-2.8) L 10/25/22 02:10 Prealbumin 8.5 mg/dL (17.6-36.0) L 10/27/22 06:38 Triglycerides 168 mg/dL (35-150) H 10/27/22 06:38 Lipase 202 U/L (23-300) 10/16/22 17:50 Alpha Fetoprotein 3.3 ng/mL (0.0-4.7) 10/22/22 12:15 Carcinoembryonic Ag 0.3 ng/mL (0.1-3.0) 10/22/22 12:15 CA 15-3 Antigen 14.6 U/mL (0.0-25.0) 10/22/22 12:15 CA 19-9 Antigen < 2 U/mL (0-35) 10/22/22 12:15 CA 125 Antigen 225 U/mL (0-35) H D 10/22/22 12:15 Procalcitonin 0.05 ng/mL (<0.5) 10/17/22 08:40 Serum , Qual Negative (Negative) 10/16/22 17:50 Urine Color Yellow 10/23/22 23:55 Urine Appearance Clear 10/23/22 23:55 Urine pH 6.0 (4.5-8.0) 10/23/22 23:55 Ur Specific [place] 1.010 (1.000-1.035) 10/23/22 23:55 Urine Protein Negative (Negative) 10/23/22 23:55 Urine Glucose (UA) Negative g/dL (Negative) 10/23/22 23:55 Urine Ketones Negative (NEGATIVE) 10/23/22 23:55 Urine Occult Blood Negative (Negative) 10/23/22 23:55 Urine Nitrate Negative (Negative) 10/23/22 23:55 Urine Bilirubin Negative (NEGATIVE) 10/23/22 23:55 Ur Bilirubin Confirm Negative (Negative) 10/16/22 20:20 Urine Urobilinogen 0.2 E.U./dL (0.2) 10/23/22 23:55 Ur Leukocyte Esterase Negative (NEGATIVE) 10/23/22 23:55 Urine RBC None seen (0-5/HPF) 10/23/22 23:55 Urine WBC None seen (0-5/HPF) 10/23/22 23:55 Ur Squamous Epith Cells None seen (0-5/HPF) 10/16/22 20:20 Other Crystals * 10/23/22 23:55 Urine Bacteria None seen (None) 10/23/22 23:55 Ur Culture Indicated? Cult not indicated 10/23/22 23:55 Fluid Color Yellow 10/17/22 16:43 Fluid Appearance Clear 10/17/22 16:43 Fluid RBC 3549 /uL 10/17/22 16:43 Fld Tot Nucleated Cell 487 /uL 10/17/22 16:43 Fluid Polynuclear WBCs 17 % 10/17/22 16:43 Fluid Mononuclear WBCs 83 % 10/17/22 16:43 Fluid Eosinophils 0 % 10/17/22 16:43 Fluid Other Cells 3 % 10/17/22 16:43 Body Fluid Clot No clots present 10/17/22 16:43 SARS-CoV-2 (PCR) Negative (Negative) 10/17/22 08:15 Bacterial Detect (PCR) None detected 10/17/22 16:43 Ref Test (Refrig) Comment (.) 10/17/22 16:43 Assessment and Plan (1) Gastric adenocarcinoma Status: Acute This is a very pleasant 27-year-old female who presented with abdominal distention and abdominal pain starting in July 2022 with 25 lb weight loss. Due to extreme pain and poor nutrition the patient has been hospitalized and currently requiring TPN and analgesic therapy. CT of the abdomen revealed ascites with abdominal caking as well as abnormalities of the esophagus and stomach. Subsequent EGD with biopsies of the esophagus and gastric mucosa revealed adenocarcinoma consistent with upper GI origin. Today I discussed these findings with the patient and her family and recommend that she undergo chemo immunotherapy in a palliative fashion. I recommend starting her on FOLFOX chemotherapy regimen along with nivolumab every 2 weeks. The patient is agreeable to starting treatment and we will plan on starting this tomorrow. Potential toxicities and benefits of treatment were discussed with the patient and she wishes to proceed. Due to persistent nausea and poor nutrition she remain on hospital receiving TPN. She does have a PICC line in place however would recommend Port-A-Cath placement by General surgery while she is in the hospital for future access. Plan Diagnosis: Gastric carcinoma, metastatic Anticipate start of FOLFOX 6 chemotherapy plus nivolumab tomorrow then every 2 weeks Recommend Port-A-Cath placement by surgery Continue current nutritional/TPN support and pain control measures.
[2022-10-29 17:07] VITALS: BP 101/62; PULSE 135; RESP 12; TEMP 36.5; O2SAT 95
--- NOTE | 2022-10-29 17:21 | PM.PN.1 ---
Subjective Subjective Date Patient Seen: 10/29/22 Interval history: Main complaint is pain and the current management is acceptable to the patient. She is getting some blurred vision with the Fentanyl and I explained to her that the side effects are most common on the first patch or whenever the dose is increased. Will keep a tab on the blurred vision and see if subsides with subsequent patches - is just 48 hours on this dose. Patient able to eat some yogurt and some granola today, tolerating full TPN doses. Per admssion note: On admission, Niecy Woo is a klaus 27-year-old female with no medical history, medications, or surgical procedures.? Approximately 2 months ago the patient began to have increasing abdominal pain and discomfort difficulty eating,? she was seen several [facility] at [facility] and was treated for constipation.? The patient has had a decreased appetite, has significant pain with eating has lost 25 lb in 2 months occasional shortness of breath, increased fatigue, increasing abdominal distention, notes that she now wakes up with abdominal pain every day an average of 6/10 it is constant it worsens whenever she tries to eat in the epigastric area with burning which then radiates to her back she has also developed low back pain.? She notes that she has 1-2 small bowel movements possibly every 1-2 days.? She says over last 5 days prior to admission, she is been unable to work due to her abdominal pain getting worse. She was drinking fluids such as? Pedialyte, Gatorade and water however food makes her extremely nauseous.? She notes her abdomen was getting increasingly more distended and painful /10 which brought her in to the ER.? The patient also notes that she had an abnormal mammogram and is in the process of being scheduled for multiple breast biopsies.? Patient notes that her father of stomach cancer at the age of 43, 2 of her aunts have had cancer but are still living she is unsure as to the type.? Patient is a single mother with 2 daughters 5-year-old and 1-year-old, and lives with her mother, brother and 2 children.? Patient states that she vaped for approximately 2 years and quit 3 months ago, she drinks only socially occasionally, denies any recreational substance use, patient has not traveled, has not had exposure to illness, has not had any new medications other than the treatments for constipation.? She denies dysphagia, diarrhea, melena,, urgency dysuria polyuria hematuria, fever, body aches, chills, vomiting, diaphoresis, denies any leg edema, chest pain, irregular heart rate, palpitations, syncope, weakness, numbness, tingling, any changes to skin, breast discharge, any recent illness injury or trauma. Exam Vital Signs (past 8 hours): - 10/29/22 12:10 10/29/22 17:07 Temperature 97.1 F L 97.7 F Pulse Rate 133 H 135 H Respiratory Rate 18 12 Blood Pressure 120/62 101/62 Pulse Oximetry 98 95 Oxygen Flow Rate 0 0 Oxygen Delivery Method Room Air Oxygen Flow Rate 0 Narrative Exam Narrative: General: no acute distress, ill-appearing, thin Cardio:? Tachycardic regular rate and rhythm Abdomen:? Abdomen is distended, soft, diffusely tender, increased ascites but not tense, decreased bowel sounds Ext: no edema or joint effusion Breasts: hard masses in both breasts Objective Labs 10/29/22 04:06 10/29/22 04:06 Labs: Laboratory Results - last 24 hr 10/17/22 10/17/22 10/29/22 16:43 16:43 04:06 WBC RBC Hgb Hct MCV MCH MCHC RDW Plt Count Neut % (Auto) Lymph % (Auto) [place] % (Auto) Eos % (Auto) Baso % (Auto) Lymph # (Auto) [place] # (Auto) Baso # (Auto) Total Counted Seg Neutrophils % Band Neutrophils % Lymphocytes % (Manual) Monocytes % (Manual) Eosinophils % (Manual) Metamyelocytes % Neutrophils # (Manual) RBC Morphology Hypochromasia Anisocytosis Microcytosis Sodium 132 L Potassium 3.6 Chloride 95 L Carbon Dioxide 33 H BUN 18 H Creatinine 0.55 Estimated GFR > 60 BUN/Creatinine Ratio 32.7 H Glucose 126 H Calcium 7.6 L Phosphorus 3.9 Magnesium 1.9 Bacterial Detect (PCR) None detected Ref Test (Refrig) Comment 10/29/22 04:06 WBC 9.4 RBC 3.37 L Hgb 7.8 L Hct 24.6 L MCV 73.0 L MCH 23.2 L MCHC 31.8 RDW 15.0 H Plt Count 296 Neut % (Auto) Not Reportable Lymph % (Auto) Not Reportable [place] % (Auto) Not Reportable Eos % (Auto) Not Reportable Baso % (Auto) Not Reportable Lymph # (Auto) Not Reportable [place] # (Auto) Not Reportable Baso # (Auto) Not Reportable Total Counted 100 Seg Neutrophils % 70.0 Band Neutrophils % 7.0 Lymphocytes % (Manual) 16.0 L Monocytes % (Manual) 5.0 Eosinophils % (Manual) 1.0 L Metamyelocytes % 1.0 H Neutrophils # (Manual) 7238 H RBC Morphology See below Hypochromasia 1+ H Anisocytosis 1+ H Microcytosis 1+ H Sodium Potassium Chloride Carbon Dioxide BUN Creatinine Estimated GFR BUN/Creatinine Ratio Glucose Calcium Phosphorus Magnesium Bacterial Detect (PCR) Ref Test (Refrig) [facility] Medical History Healthy adult Family History Father Cancer Aunt Cancer Social History household members: family and children Smoking Status: Former smoker Assessment & Plan Assessment & Plan narrative: 1. Metastatic gastric adenocarcinoma, with malignant ascites causing severe abd pain and NV on presentaion -CT imaging showed ascites and evidence of peritoneal carcinomatosis and omental caking -pelvic ultrasound showed no ovarian mass -CT imaging showed gastric wall thickening, and question of gallbladder mass, suspect higher likelihood of gastric cancer. EGD 10/18 with subtantial thickening and multiple biopsies obtained. -CA-125 elevated, CEA negative. -para removed 3L, cytology ordered (? if sent first time) negative for SBP with low number of PMNs. Ascites fluid albumin 2.6. SAAG >1.1. Reeval on 10/21 without enough fluid for paracentesis. -Not tolerating any sort of nutrition, some concern for very poor absorption. Start TPN yesterday and will continue -increased PPI to 40 mg BID, added sucralfate. Otherwise pain not controlled with oral medications. Added fentanyl patch 10/20 but patient only had sleepiness without improvement of pain. Therfore increased to 25 mcg.Getting some blurry vision with increased dose but this may subside with further doses -with ascites, tried low dose diuretic to see if this can prevent re-accumulation of fluid. She did not tolerate with hypotension and tachycardia improved with fluids. Will likely need serial paracentesis. Last paracentesis was 3 days ago, likely will need further parcentesis soon -at time of discharge will likely need referral for urgent oncology appointment and a oncologic surgeon.?Discussed case today with Dr. Refugio Lewis, solid tumor Oncology at and he will put in a referral to outpatient followup with Oncology at . He indicated the ongoing treatment with TPN is appropriate to ready the patient for eventual discharge and outpatient treatment with oncology. Patient/unit will be contacted on Oct 30 for this followup with . Patient may however, do all Oncology treatment locally. -previous hospitalist spoke with Dr. Collier oncology 10/22 who recommended checking additional tumor markers AFP and CA 15-3. He will follow along -previous hospitalist spoke with Dr. Dennis gen surg about possible omental laproscopic biopsy vs colonoscopy, she will discuss with onc -added 5mg SL zyprexa daily for NV, continue po SL morphine 5-15mg q4h for cancer pain. Use dilaudid 1mg IV q1h for breakthrough pain. -path returned on 10/25 confirms gastric adenocarcinoma as primary without markers for breast cancer, oncology working on treatment plan and to visit with patient on Friday -port in place -underwent bedside paracentesis on 10/26 and drained 3.4L of clear yellow fluid, patient felt much better afterward 2. Breast masses -patient says she noticed them 1 month ago, had outpatient mammogram at [facility] -originally plan for biopsy as outpatient on 10/25, but this was missed due to being in the hospital -US bilateral breasts ordered, returned as ill-defined areas of heterogeneous, hypoechoic tissue concerning for malignancy -will defer to oncology guidance on whether biopsy is needed or not 3. Blurry vision, resolved with removal of initial Fentanyl patch, returned with new patch and likely side effect that may resolve with subsequent patches, continue to follow ??- CT head with contrast to evaluate for possible metastatic disease ordered and negative. 4. Severe acute protein calorie malnutrition ?- r/t inability to eat d/t nausea and epigastric discomfort and predicted increased kcal needs with metastatic cancer aeb? severe weight loss of 7.3% over one month, GI symptoms of nausea and anorexia for 2 months, and inadequate PO per diet recall. -The patient is at much higher risk for medical and surgical complications because of his malnutrition.? This increases the difficulty and complexity of medical and surgical interventions and increases the chances of poor outcomes such as morbidity and mortality. -started on TPN, appreciate dietary and pharmacy involvement in care. -has increased caloric to be adequate intake now. Starting to adjust TPN to be appropriate for going home in a few days. Best also to continue to treat with Thiamine 5. SBO vs severe ileus -CT abd showed dilated loops of bowel, patient hasn't had BM in over a week but no significant stool on scans -per gen surg likely due to ascites and cancer not constipation, very little bowel tones present -patient defers NG at this time, her nausea is improving but not passing gas yet -continue TPN - had small stool with bowel movement yesterday - likely will need ascites removed in next day or two and will need a process to continue this on discharge. 6. Nausea - with Fentynal patch, treat with sl ondansetron every 8 hours as scheduled dose. (chose this medication because can be used at home) 7. Pain control - Fentynal 25 mcg per 72 hours with break through medication increased to dilaudid 2 mg IV every 4 hours as needed. will follow and change as needed. Follow labs and clinically. Code: Full code Dispo: probable discharge home, timing unclear, depending on path results, nutritional status with TPN and pain contro Time Spent With Patient Critical Care time: I spent a total of [] minutes of critical care time on this patient's care today; this time is exclusive of procedural time. Quality VTE Deep Vein Thrombosis/Pulmonary Embolism Present on Admission: No
[2022-10-29] MEDS: DEXT IV (17:54)
[2022-10-29] MEDS: TRACE ELEMENTS IV (17:54)
[2022-10-29] MEDS: CALCIUM IV (17:54)
[2022-10-29] MEDS: MULTIVITAMIN IV (17:54)
[2022-10-29] MEDS: LYTES IV (17:54)
[2022-10-29] MEDS: [UNRECOGNIZED DRUG - OTHER] IV (17:54)
--- NOTE | 2022-10-29 19:01 | PC.NURSE ---
patient is drowsy, eyes rolling back in her head when not stimulated by conversation or noises in the room. answers questions and rouses when spoken to. fentanyl patch 25mcg is intact, covered w/ tegaderm to L deltoid. patient reports pain in left side, similar to cramping or sharp pain. requesting dilauded IVP thru the shift, and the grogginess has been noted to be slightly worse by the end of the day. encouraged her to lower the HOB and stretch out a little bit, as she is sitting bolt upright most of the day, w/ her distended abdomen somewhat restricting her movements in the bed. encouraged her to lay on her side if tolerable, and to change positions frequently in order to promote peristalsis & passing of gas. she is passing gas and had a small BM yesterday. had several moments thru the day when she denied any pain/discomfort. tolerated OOB to shower w/ min assist. her face and demeanor were brightened when she was finished, and was smiling and feeling better. continues w/ TPN at goal 85.25/hour via port, dressing is CDI. abx infusing via LUE picc. edematous LE's, SCD's applied, HOB lowered and LE's elevated to comfort; encouraged her to call for assistance out of bed to prevent falls. family is visiting thru the day. brother Julian at bedside overnight. Dr Collier here to see patient this AM. update given, and plan is for radiation oncology manager to initiate chemo Rx tmorrow. side effects discussed w/ pharmacist + relayed to patient: including- neuropathy to hands and fingers, encouraged to wear gloves, and also only lukewarm fluids are recommended for PO intake. noel draining large amount of clear urine. appetite is general/LOIS; requested granola and yogurt this morning. has snacks and food items available at all times. Sg collier and paulette notified and aware of the grogginess patient has been exhibiting and also the eyes rolling back and vision difficulties. Dr Garzon will f/u. report to NOC shift.
[2022-10-29 19:50] VITALS: BP 111/65; PULSE 126; RESP 20; TEMP 36.1; O2SAT 100
[2022-10-29] MEDS: METOPROLOL IR 25 MG TABLET 12.5 MG PO (21:33)
[2022-10-30] VITALS (8 sets, daily range): BP systolic 105–126; BP diastolic 47–72; PULSE 109–134; RESP 12–18; TEMP 35.9–36.7; O2SAT 97–100
--- NOTE | 2022-10-30 00:41 | PC.NURSE ---
Patient is alert and oriented. Breath sounds CTA with RA sat of 100% but has increased abdominal pain when taking deep breaths; denies SOB except when pain is increased. HRR but tachy at 126 bpm. BT hypoactive and denies flatus; reports very small stool yesterday. Abdomen is distended with ascites and is tender in RUQ. Does have some nausea which is mostly controlled with scheduled Zofran. Indwelling catheter related to difficulty with retention related to abdominal distention. Is independent with bed mobility and ambulates in lewis independently. Medicated with ativan and dilaudid at 2243 for 8/10 abdominal pain and has been mostly sleeping since that time. Refusing SCD's tonight. Has 1+ bilateral LE edema from toes to groin. Fall risk score is moderate and verbalizes understanding to call for assist if feeling dizzy or lightheaded when up. TPN infusing via port and IV antibiotics via DL PICC. Noted to have orders on emar for IVF + Decadron + Zofran ordered yesterday by oncology for 0000. Discussed with Basim HULL, and felt these orders would be typically given just prior to chemo infusion. Verbal order from DRUM BUILDER to not give these medications at this time.
[2022-10-30] MEDS: diphenhydrAMINE 50 MG/ML VIAL 25 MG IV ×3 (01:56→13:55)
[2022-10-30] MEDS: HYDROMORPHONE 2 MG INJ IV ×9 (01:57→21:26)
[2022-10-30] MEDS: ONDANSETRON 4 MG ODT 8 MG SL ×3 (06:15→21:26)
[2022-10-30] MEDS: PIPERACILLIN/TAZO 3.375 GM in SODIUM CHLORIDE 0.9% 100 ML IV ×2 (06:16→13:43)
[2022-10-30 06:51] LABS: Add Manual Diff / Slide Review NO; Basophils Absolute Auto 0 /uL (0-100); Basophils Percent Auto 0.5 % (0-2); Eosinophils Absolute Auto 100 /uL (0-450); Eosinophils Percent Auto 1.7 % (2-4); Hematocrit 24.4 % (36-46); Hemoglobin 7.7 g/dL (12.0-16.0); Lymphocytes Absolute Auto 900 /uL (1100-4500); Lymphocytes Percent Auto 11.4 % (25-40); Mean Corpuscular HGB Conc 31.6 % (30-36); Mean Corpuscular Volume 72.7 fL (80-100); Monocytes Absolute Auto 600 /uL (0-900); Monocytes Percent Auto 7.5 % (3-14); Neutrophils Absolute Auto 6100 /uL (1500-7000); Neutrophils Percent Auto 78.9 % (50-75); Platelet Count 326 X10^3/uL (150-400); Red Blood Cell Count 3.35 X10^6/uL (4.0-5.2); White Blood Cell Count 7.8 X10^3/uL (4.5-11.0)
[2022-10-30 07:03] LABS: Alanine Aminotransferase 13 IU/L (<35); Albumin 2.6 g/dL (3.5-5.0); Albumin Globulin Ratio 0.8 (1.0-2.8); Alkaline Phosphatase 129 U/L (38-126); Aspartate Aminotransferase 22 IU/L (14-36); BUN Creatinine Ratio 33.9 (6-22); Bilirubin Total 1.5 mg/dL (0.2-1.3); Blood Urea Nitrogen 20 mg/dL (7-17); Calcium 8.1 mg/dL (8.4-10.2); Carbon Dioxide 33 mmol/L (22-32); Chloride 93 mmol/L (98-107); Estimated Glomerular Filt Rate > 60 mL/min (>60); Globulin 3.2 g/dL (1.7-4.1); Glucose 125 mg/dL (70-100); HEMOLYSIS < 15 (0-50); Sodium 131 mmol/L (137-145); Total Protein 5.8 g/dL (6.3-8.2)
[2022-10-30] MEDS: LORazepam 2 MG/ML INJ 1 MG IV ×3 (08:10→21:26)
[2022-10-30] MEDS: FUROSEMIDE 40 MG/4 ML VIAL IV (08:11)
[2022-10-30] MEDS: PANTOPRAZOLE 40 MG VIAL IV ×2 (08:11→21:25)
[2022-10-30] MEDS: ENOXAPARIN 40 MG/0.4 ML SYRINGE SUBCUT (08:12)
[2022-10-30] MEDS: METOPROLOL IR 25 MG TABLET 12.5 MG PO ×2 (08:12→21:50)
[2022-10-30] MEDS: OLANZapine ODT 10 MG TAB 5 MG PO (08:15)
[2022-10-30] MEDS: SODIUM CHLORIDE 0.9% FLUSH 10 ML IV ×2 (09:18→21:49)
[2022-10-30] MEDS: METOCLOPRAMIDE 10 MG/2 ML INJ IV ×3 (09:21→16:32)
--- NOTE | 2022-10-30 09:31 | CM.DPC ---
Addendum entered by Annette Velsaco R.N. 10/30/22 12:55: Abigail, admission counselor was going to see about patient going on to [facility], from her [facility], since they are in [facility]. Called Addi over at [facility] and updated him, and let him know that she has not switched out as of yet, but could be in the process. He did mention, she may not qualify for nursing care under that plan, but still will go out to her home to do the teaching, or do the teaching for TPN here. Did speak to Crystal at [facility] to let her know that patient could be switching over to [facility], and she indicated, should not be a problem, since it is still Medicaid. Addi at [facility] was not aware that patient had a port a cath. Faxed him over the operative report from the . Original Note: DCP Cont: Patient is supposed to be getting her chemo here at the hospital. Josie, oncology nurse at [facility] had called, spoke to RICHARD Merchant. They have been attempting to work on her insurance auth, since they are not contracted with [facility]. Josie had inquired upon having patient microsoft exchange administrator to another managed Medicaid, such as [facility]. Abigail, admission change group, will go to bedside to see if patient can switch over to another managed Medicaid. If this happens, will have to [facility]. P: DCP to continue to follow. Plan is for home with [facility] [employer], and [facility] to set up TPN. Had faxed them over the latest notes from yesterday. Will discuss further in team rounds. Annette Velasco RN/Hospice Coordinator
--- NOTE | 2022-10-30 12:19 | PC.NURSE ---
Chemotherapy administration on the acute care floor by this nurse. Preliminary assessment VSS with a heart rate of 120, lung sounds clear, bowel sounds heard only in upper left quadrant, last moved a small amount on stool this night and has had infrequent stool during her stay. Patient in severe pain on narcotics and able to communicate normally but eyes frequently closing. heart rate and constipation reported to Dr. [facility]. Plan to go ahead with immuno/chemo. Patient/brother educated re side effects and she signed chemo consent form.
[2022-10-30] MEDS: MORPHINE 10 MG/0.5 ML ORAL SYRINGE 15 MG PO (12:33)
[2022-10-30] MEDS: SODIUM CHLORIDE 0.9% 100 ML 21 ML IV (12:34)
[2022-10-30] MEDS: NIVOLUMAB 240 MG in SODIUM CHLORIDE 0.9% (CHEMO) 100 ML 248 ML IV (12:34)
[2022-10-30] MEDS: INSULIN LISPRO 100 UNIT/ML 3ML VIAL SUBCUT (12:42)
--- NOTE | 2022-10-30 12:47 | PC.NURSE ---
CHEMOTHERAPY EDUCATON: PATIENT GIVEN [facility]MOCARE PRINTD MATERIALS ON OPDIVO, OXALIPLATIN, LEUCOVORIN AND 5FU. ALSO EATING HINTS, CHEMOTHERAPY AND YOU, [facility] INFO AND ADVANCED DIRECTIVE INFO. THIS NURSE REVIEWED ESPECIALLY THE SIDE EFFECTS OF IMMUNOTHERAPY INCLUDING DIAHRREA AND FOR CHEMO N/V, DIAHRREA, MOUTH SORES, AND WITH OXALIPLATIN THE PERIPHERAL NEUROPATHY AND THE IMPORTANCE OF AVOIDING ESPECIALLY ICE AND COLD DRINKS AND COLD FOOD AND GRABBING COLD METAL WITH A BARE HAND. THEY WERE ALSO INSTRUCTED THAT CHEMO WILL BE EXCRETED FROM HER BODY IN URINE, FECES AND VOMIT FOR UP TO 72 HOURS FOLLOWING THE ENDING OF THE 5FU ON FRIDAY AND THE NEED TO KEEP CHILDREN OUT OF THE BATHROOM, FAMILY CLEANING ANY EXCREMENT WHOULD WEAR GLOVES, TOILET LID SHOULD BE CLOSED WHEN FLUSHING. PATIENT AND BROTHER VOICED UNDERSTANDING. PATIENT WAS INSTRUCED TO LET THIS NURSE KNOW IMMEDIATELY IF FEELING ANY DIFFERENT AFTER THE START OF IMMUNO/CHEMOTHERAPY.
[2022-10-30] MEDS: fentaNYL 50 MCG/PATCH TOP (12:50)
[2022-10-30] MEDS: DEXTROSE 5% IV ×2 (13:30→13:31)
[2022-10-30] MEDS: LEUCOVORIN IV (13:30)
[2022-10-30] MEDS: OXALIPLATIN IV (13:31)
--- NOTE | 2022-10-30 15:36 | PC.NURSE ---
NEW PAIN BILATERAL MID-BACK, LEVEL 5/10 PER PATIENT. STOPPED CHEMO. ASSISTED PATIENT TO AMBULATE TO CHAIR. VSS. NO SOB, SWELLING IN MOUTH/THROAT OR ITCHING AFTER 5 MINUTES PATIENT REPORTED TO BE FEELING BETTER, PAIN DOWN TO 3/10. CHEMO RESTARTED.
--- NOTE | 2022-10-30 15:48 | PC.NURSE ---
NEW BACK PAIN: PER PATIENT PAIN IS NOW GONE SHE HAS BEEN SITTING UP IN THE RECLINER. NOW NEW SYMPTOMS, OXALIPLATIN AND LEUCOVORIN INFUSION 3/4 COMPLETE.
--- NOTE | 2022-10-30 16:29 | DI.CT.S_ITS ---
PROCEDURE: CT ABDOMEN PELVIS W CON INDICATIONS: severe acute abdominal pain, r/o perforation TECHNIQUE: After the administration of intravenous contrast, axial sections acquired from the lung bases to the pubic symphysis. Coronal and sagittal reformats were performed. For radiation dose reduction, the following was used: automated exposure control, adjustment of mA and/or kV according to patient size. COMPARISON: [facility], CT, CT ABDOMEN PELVIS W CON, 10/23/2022, 22:22. FINDINGS: Lower thorax: Moderate right pleural effusion, increased from the prior exam Heart size normal. No hiatal hernia. Liver: Normal in size and attenuation. No contour deformity present. Biliary system: Calcified stones noted in the lumen of the gallbladder. Increased density in the gallbladder consistent with vicarious excretion of contrast from recent contrast studies. No pericholecystic inflammatory change. No intra or extrahepatic bile duct dilation. Pancreas: Unremarkable without mass or inflammation evident. Spleen: Normal in size and density. Adrenals: Normal morphology and density. Reproductive system: Unremarkable as visualized. Urinary system: Moderate right hydronephrosis without calcified obstructing lesion. Deleon catheter in the hand day air in the bladder, probably reflects recent instrumentation. Gastrointestinal system: Gastric and proximal small bowel wall thickening with proximal fluid distension there is oral contrast in the colon Appendix: No findings to suggest acute appendicitis. Peritoneal spaces: Large volume abdominal and pelvic ascites, increased to prior peritoneal studding and thickening noted throughout the exam, consistent with peritoneal carcinomatosis Vasculature: The IVC, aorta and iliac vasculature are unremarkable. Abdominal wall: Abdominal wall intact without evidence of ventral or inguinal hernias. Musculoskeletal: Normal bone mineralization. No acute fractures. Subcutaneous edema noted as well IMPRESSION: 1. Peritoneal carcinomatosis. Increasing large volume ascites and peritoneal/serosal surface studding, consistent with carcinomatosis. 2. Increasing right sided hydronephrosis without calcified obstructing lesion probably related to peritoneal implant. 3. Fluid distension and wall thickening of the bowel with distal small bowel decompression. Ileus versus obstruction. There is oral contrast within the colon. 4. Moderate right pleural effusion, ascites and subcutaneous edema, all related to fluid balance Approved by: Keith Marcial M.D. on 10/30/2022 at 16:14
[2022-10-30] MEDS: ISOOSMOTIC VEHICLE IV (16:57)
[2022-10-30] MEDS: FLUOROURACIL IV ×2 (16:57→17:27)
--- NOTE | 2022-10-30 17:04 | DIET.CONS2 ---
Dietary Inpatient Consultation Note Admission Date: 10/16/2022 22:30 Pt safe to d/c from nutrition perspective. Pt meeting goal EER with TPN. Plan to transition pt to 16h cyclic TPN (10/31/22) so she can be unhooked from infusion during the day for 8h. TPN would run at 125mL/h starting at 1800 with bag completed by noon Friday (11/01/22). Diet: 10/29/22 Breakfast General (Regular) Diet Diet Modifications: Electronically Signed by: Jolie Dudley 10/30/22 17:04 Clinical Dietitian [address] [address]
--- NOTE | 2022-10-30 17:08 | ONC.PHA ---
Chemotherapy: S/O: 27 y.o. female, with diagnosis of gastric cancer, starts cycle 1 [id number] and Nivolumab chemotherapy: Nivolumab 240ngm Oxaliplatin 85mg/m? (145mg), Leucovorin 400mg/m? (690mg), 5FU bolus 400mg/m? (690mg) and 5-FU CIV 2400mg/ m? over 46 hours, cycle 14 days. Today Wt = 78.3 kg, BSA = 1.82 m? A/P: Reviewed chemotherapy order: Oxaliplatin, Leucovorin and 5-FU doses are calculated using actual BW. Reviewed chemotherapy dose: Nivolumab and 5-FU doses are appropriate. Recalculated Oxaliplatin and Leucovorin doses: 1. Oxaliplatin 85mg/m? x 1.82 m? = 154.7mg, round dose to 150mg to vial size 2. Leucovorin 400mg/m? x 1.82 m? = 728mg, round dose 700mg to vial size Reviewed today labs: all pertinent labs are appropriated, except total bilirubin = 1.5 (1.2 x UNL) no dose adjustment recommend. Reviewed MD 10/29/2022 note, plan to start FOFOX 6 plus nivolumab on 10/30/2022, then every 2 weeks. produce team member provided chemotherapy teaching this morning Reviewed some chemotherapy side effects and how to manage the side effects with patient today prior to start of chemotherapy treatment as following 1. Advised patient to notify RN as soon as she feels nausea, not to delaying. 2. Sip room temperature or warm water only using the straw, no cold water or ice chip. 3. Wear mast in her room, especially when there are visitors. 4. Wear warm sock and mitten/gloves to avoid cold exposure. 5. Contact pharmacist if any question or concern. Patient verbalized understand and in agreement with plan. Allergies Allergy/AdvReac Type Severity Reaction Status Date / Time No Known Drug Allergies Allergy Verified 10/16/22 17:29 Diagnosis Malignant neoplasm of stomach, unspecified 10/16/22 Malignant (primary) neoplasm, unspecified 10/16/22 Malignant ascites 10/16/22 Other ascites 10/16/22 Vital Signs Temperature 97.5 F 10/30/22 16:26 Temperature 97.1 F 10/30/22 15:35 Temperature 97 F 10/30/22 13:00 Pulse Rate 123 10/30/22 16:26 Pulse Rate 119 10/30/22 15:35 Pulse Rate 109 10/30/22 13:00 Respiratory Rate 16 10/30/22 16:26 Respiratory Rate 12 10/30/22 15:35 Respiratory Rate 12 10/30/22 13:00 Blood Pressure 126/72 10/30/22 16:26 Blood Pressure 120/71 10/30/22 15:35 Blood Pressure 105/57 10/30/22 13:00 Pulse Oximetry 99 10/30/22 16:26 Pulse Oximetry 99 10/30/22 15:35 Pulse Oximetry 97 10/30/22 13:00 Weight 78.3 kg 10/30/22 10:46 Laboratory WBC 7.8 X10^3/uL (4.5-11.0) 10/30/22 06:34 RBC 3.35 X10^6/uL (4.0-5.2) L 10/30/22 06:34 Hgb 7.7 g/dL (12.0-16.0) L 10/30/22 06:34 Hct 24.4 % (36-46) L 10/30/22 06:34 Plt Count 326 X10^3/uL (150-400) 10/30/22 06:34 Neut # (Auto) 6100 /uL (2171-6050) 10/30/22 06:34 Neutrophils # (Manual) 7238 /uL (0294-0368) H 10/29/22 04:06 Creatinine 0.59 mg/dL (0.52-1.04) 10/30/22 06:34 Estimated GFR > 60 mL/min (>60) 10/30/22 06:34 Calcium 8.1 mg/dL (8.4-10.2) L 10/30/22 06:34 Total Bilirubin 1.5 mg/dL (0.2-1.3) H 10/30/22 06:34 AST 22 IU/L (14-36) 10/30/22 06:34 ALT 13 IU/L (<35) 10/30/22 06:34 Alkaline Phosphatase 129 U/L (38-126) H D 10/30/22 06:34
[2022-10-30] MEDS: SODIUM CHLORIDE 0.9% IV (17:27)
--- NOTE | 2022-10-30 18:43 | PM.PN.1 ---
Subjective Subjective Date Patient Seen: 10/30/22 Interval history: 27 F with gastric cancer, started chemotherapy today. She had acute worsening of her abdominal pain. CT ordered to rule out gastric or bowel rupture, did note worsening R hydronephrosis but no free air and had worsening ascites. Performed abdominal paracentesis today with removal of 2.4 L of fluid, with improvement after. Fluid sent for cell count only. Exam Vital Signs (past 8 hours): - 10/30/22 13:00 10/30/22 15:35 10/30/22 16:26 Temperature 97 F L 97.1 F L 97.5 F L Pulse Rate 109 H 119 H 123 H Respiratory Rate 12 12 16 Blood Pressure 105/57 L 120/71 126/72 Pulse Oximetry 97 99 99 Oxygen Flow Rate 0 10/30/22 16:00 Temperature 97.5 F L Pulse Rate 122 H Respiratory Rate 18 Blood Pressure 126/72 Pulse Oximetry 100 Oxygen Flow Rate Oxygen Delivery Method Room Air Oxygen Flow Rate 0 Narrative Exam Narrative: General: no acute distress, ill-appearing, thin Cardio:? Tachycardic regular rate and rhythm Abdomen:? Abdomen is distended, soft, diffusely tender, increased ascites but not tense, decreased bowel sounds Ext: no edema or joint effusion Breasts: hard masses in both breasts Objective Labs 10/30/22 06:34 10/30/22 06:34 Labs: Laboratory Results - last 24 hr 10/30/22 10/30/22 06:34 06:34 WBC 7.8 RBC 3.35 L Hgb 7.7 L Hct 24.4 L MCV 72.7 L MCH 23.0 L MCHC 31.6 RDW 15.0 H Plt Count 326 Neut % (Auto) 78.9 H Lymph % (Auto) 11.4 L Jewell % (Auto) 7.5 Eos % (Auto) 1.7 L Baso % (Auto) 0.5 Neut # (Auto) 6100 Lymph # (Auto) 900 L Jewell # (Auto) 600 Eos # (Auto) 100 Baso # (Auto) 0 Sodium 131 L Potassium 4.0 Chloride 93 L Carbon Dioxide 33 H BUN 20 H Creatinine 0.59 Estimated GFR > 60 BUN/Creatinine Ratio 33.9 H Glucose 125 H Calcium 8.1 L Total Bilirubin 1.5 H AST 22 ALT 13 Alkaline Phosphatase 129 H D Total Protein 5.8 L Albumin 2.6 L Globulin 3.2 Albumin/Globulin Ratio 0.8 L [facility] Medical History Healthy adult Family History Father Cancer Aunt Cancer Social History household members: family and children Smoking Status: Former smoker Assessment & Plan Assessment & Plan narrative: 1. Metastatic gastric adenocarcinoma, with malignant ascites causing severe abd pain and NV on presentaion -CT imaging showed ascites and evidence of peritoneal carcinomatosis and omental caking -pelvic ultrasound showed no ovarian mass -CT imaging showed gastric wall thickening, and question of gallbladder mass, suspect higher likelihood of gastric cancer. EGD 10/18 with subtantial thickening and multiple biopsies obtained. -CA-125 elevated, CEA negative. -para removed 3L, cytology ordered (? if sent first time) negative for SBP with low number of PMNs. Ascites fluid albumin 2.6. SAAG >1.1. Reeval on 10/21 without enough fluid for paracentesis. Underwent bedside paracentesis on 10/26 with 3.4 L removed, and then again today, 10/30 with 2.4 L removed done for abdominal distension and pain. Sent for cell count only given acute pain to rule out infection. -Not tolerating any sort of nutrition, some concern for very poor absorption. Start TPN yesterday and will continue -increased PPI to 40 mg BID, added sucralfate. Otherwise pain not controlled with oral medications. Added fentanyl patch 10/20 but patient only had sleepiness without improvement of pain. Therfore increased to 25 mcg.Getting some blurry vision with increased dose but this may subside with further doses -with ascites, tried low dose diuretic to see if this can prevent re-accumulation of fluid. She did not tolerate with hypotension and tachycardia improved with fluids. Will likely need serial paracentesis. -at time of discharge will likely need referral for urgent oncology appointment and a oncologic surgeon.?Discussed case today with Dr. Refugio Lewis, solid tumor Oncology at and he will put in a referral to outpatient followup with Oncology at . He indicated the ongoing treatment with TPN is appropriate to ready the patient for eventual discharge and outpatient treatment with oncology. Patient/unit will be contacted on Oct 30 for this followup with . Patient may however, do all Oncology treatment locally. -previous hospitalist spoke with Dr. Collier oncology 10/22 who recommended checking additional tumor markers AFP and CA 15-3. He will follow along -previous hospitalist spoke with Dr. Dennis gen surg about possible omental laproscopic biopsy vs colonoscopy, she will discuss with onc -added 5mg SL zyprexa daily for NV, continue po SL morphine 5-15mg q4h for cancer pain. Use dilaudid 1mg IV q1h for breakthrough pain. -path returned on 10/25 confirms gastric adenocarcinoma as primary without markers for breast cancer, oncology started treatment today (10/30) with FOLFOX plus nivolumab every 2 weeks. -port in place 2. Breast masses -patient says she noticed them 1 month ago, had outpatient mammogram at [facility] -originally plan for biopsy as outpatient on 10/25, but this was missed due to being in the hospital -US bilateral breasts ordered, returned as ill-defined areas of heterogeneous, hypoechoic tissue concerning for malignancy -will defer to oncology guidance on whether biopsy is needed or not 3. Blurry vision, resolved with removal of initial Fentanyl patch, returned with new patch and likely side effect that may resolve with subsequent patches, continue to follow ??- CT head with contrast to evaluate for possible metastatic disease ordered and negative. 4. Severe acute protein calorie malnutrition ?- r/t inability to eat d/t nausea and epigastric discomfort and predicted increased kcal needs with metastatic cancer aeb? severe weight loss of 7.3% over one month, GI symptoms of nausea and anorexia for 2 months, and inadequate PO per diet recall. -The patient is at much higher risk for medical and surgical complications because of his malnutrition.? This increases the difficulty and complexity of medical and surgical interventions and increases the chances of poor outcomes such as morbidity and mortality. -started on TPN, appreciate dietary and pharmacy involvement in care. -has increased caloric to be adequate intake now. Starting to adjust TPN to be appropriate for going home in a few days. Best also to continue to treat with Thiamine 5. SBO vs severe ileus -CT abd showed dilated loops of bowel, patient hasn't had BM in over a week but no significant stool on scans -per gen surg likely due to ascites and cancer not constipation, very little bowel tones present -patient defers NG at this time, her nausea is improving but not passing gas yet -continue TPN - had small stool with bowel movement yesterday - likely will need ascites removed in next day or two and will need a process to continue this on discharge. 6. Nausea - with Fentynal patch, treat with sl ondansetron every 8 hours as scheduled dose. (chose this medication because can be used at home) 7. Pain control - Fentynal 25 mcg per 72 hours with break through medication increased to dilaudid 2 mg IV every 4 hours as needed. will follow and change as needed. 8. R hydronephrosis - continue chemo, no ZACK on recent labs and likely due to omental disease. Continue to follow. Consider urology consultation depending on clinical course. Follow labs and clinically. Code: Full code Dispo: probable discharge home, timing unclear, will complete first round of chemotherapy in a couple of days (takes 48 hours), and will need infusion solutions and follow up with oncology. Time Spent With Patient Critical Care time: I spent a total of [] minutes of critical care time on this patient's care today; this time is exclusive of procedural time. Quality VTE Deep Vein Thrombosis/Pulmonary Embolism Present on Admission: No
--- NOTE | 2022-10-30 18:44 | PM.PROC.1 ---
Procedures Date/Time Date of procedure: 10/30/22 Time of procedure: 18:44 Paracentesis Time out performed: Yes Indication: Ascites (with acute pain) Procedure: therapeutic paracentesis Location: RLQ Local anesthetic used: lidocaine 1% Amount of anesthesia used (ml): 8 Bedside ultrasound used: yes, Ascites confirmed and location marked Preparation: sterile prep and drape Amount of fluid obtained (ml): 2,400 Fluid: clear Size of needle used: 15 Post procedure exam: awake, alert, normal BP, normal HR and normal SpO2 Patient tolerated procedure: well Complications: none Additional comments: Prior to the procedure formal consent was obtained from the patient after discussion of risks and benefits of the procedure, and allowing the patient to ask any questions. Ultrasound was used to find a suitable pocket, and the site was marked. A time-out was performed. The site was then prepped and draped in usual sterile fashion, area was anesthatized with 4 cc of 1% lidocaine. a 15 gauge needle was inserted with return of clear yellow fluid. A total of approximately 2400 mL was obtained before drainage stopped due to abdominal discomfort. She did complain of abdominal wall discomfort during the procedure, so an additional 4cc of lidocaine was inserted. There was minimal bleeding and the patient tolerated the procedure well. There were no further complications.
[2022-10-30] MEDS: MULTIVITAMIN IV (19:13)
[2022-10-30] MEDS: FAT EMULSIONS 50 GM/250 ML EMULSION IV (19:13)
[2022-10-30] MEDS: [UNRECOGNIZED DRUG - OTHER] IV (19:13)
[2022-10-30] MEDS: TRACE ELEMENTS IV (19:13)
[2022-10-30] MEDS: LYTES IV (19:13)
[2022-10-30] MEDS: CALCIUM IV (19:13)
[2022-10-30] MEDS: DEXT IV (19:13)
[2022-10-30 19:26] LABS: Body Fluid Red Blood Cells 2097 /uL; Body Fluid Tot Nucleated Cells 268 /uL
[2022-10-30 19:32] LABS: Body Fluid Appearance HAZY; Body Fluid Clotted? NO CLOTS PRESENT; Body Fluid Color YELLOW
[2022-10-30 20:18] LABS: Eosinophils Body Fluid 0 %; Mononuclear WBC Body Fluid 80 %; Polynuclear WBC Body Fluid 17 %
[2022-10-30 20:19] LABS: Other Cells Body Fluid 3 %
[2022-10-31] VITALS (10 sets, daily range): BP systolic 94–111; BP diastolic 35–58; PULSE 106–123; RESP 15–111; TEMP 36.6–36.8; O2SAT 95–97
--- NOTE | 2022-10-31 00:39 | PC.NURSE ---
Addendum entered by Sharita Alcantara R.N. 10/31/22 03:22: Nauseated and had 50cc emesis around 0130 and was medicated with Ativan and able to sleep past 2 hours. Now is again nauseated/retching. Basim HULL, contacted and reviewed current regimen for nausea. See order to DC scheduled ODT Zofran and new order for prn IV Zofran. Original Note: Patient is alert and oriented but drowsy. Breath sounds diminished at bilateral bases but has RA sat of 97%. HRR but tachy at 113. BT hypoactive; abdomen is distended with ascites. Indwelling catheter is patent; urine is clear, eh. Is able to turn herself and is up in halls independently w/family. Complained earlier of abdominal pain and was medicated with dilaudid and now states she is in no pain. Is wearing bilateral calf SCD's. On chemo precautions as currently w/chemo infusing into port. TPN and lipids are infusing via DL PICC. Fall risk score is moderate. Family room in.
[2022-10-31] MEDS: LORazepam 2 MG/ML INJ 1 MG IV ×3 (01:27→21:25)
[2022-10-31] MEDS: SODIUM CHLORIDE 0.9% FLUSH 10 ML IV ×5 (01:31→21:34)
[2022-10-31] MEDS: HYDROMORPHONE 2 MG INJ IV ×3 (01:39→18:33)
[2022-10-31] MEDS: ONDANSETRON 4 MG/2 ML INJ IV ×2 (03:40→18:33)
[2022-10-31] MEDS: INSULIN LISPRO 100 UNIT/ML 3ML VIAL SUBCUT ×2 (06:20→12:32)
[2022-10-31] MEDS: METOCLOPRAMIDE 10 MG/2 ML INJ IV ×3 (07:40→16:28)
[2022-10-31] MEDS: OLANZapine ODT 10 MG TAB 5 MG PO (08:21)
[2022-10-31] MEDS: PANTOPRAZOLE 40 MG VIAL IV ×2 (08:21→21:25)
[2022-10-31] MEDS: FUROSEMIDE 40 MG/4 ML VIAL IV (08:21)
[2022-10-31] MEDS: METOPROLOL IR 25 MG TABLET 12.5 MG PO (08:22)
[2022-10-31] MEDS: ENOXAPARIN 40 MG/0.4 ML SYRINGE SUBCUT (08:22)
[2022-10-31] MEDS: SODIUM CHLORIDE 0.9% 1,000 ML 1000 ML IV (12:56)
[2022-10-31 13:53] LABS: Thyroid Stimulating Hormone 5.19 uIU/mL (0.47-4.68)
[2022-10-31] MEDS: SODIUM CHLORIDE 0.9% 1,000 ML 100 ML IV (15:45)
--- NOTE | 2022-10-31 15:45 | CM.DPC ---
DCP: Plan continued. Spoke with RICHARD Mcfadden at oncology and collaborated on subject to review with regard to patient family needs and on what kind of conversations that family has had with regard to DPOA for healthcare, child custody in the event of life event for pt ect. This DCP was able to meet with pt, her brother Giuliano and her Mom in her room this afternoon. Pt was very sleepy and unable to remain awake during this CM's conversation with her. This DCP reviewed DPOA for Healthcare pamplet with pt, brother and Mom with pt permission and explained that when it was completed they would need 2 witnesses to sign that were not related by blood or to have it notorized. Per what Lesa had spoken to this CM about prior in the day. Pt brother verbalized understanding. This CM asked pt about the children's father and if she is concerned of any risks for her children if anything should happen to her, pt stated the children's father sees them sometimes but if anything happens to her, my Mom or brother will have custody. Pt then fell asleep. Per pt brother Giuliano, they have a criminal lawyer involved with custody papers in place and a living will. Plan: Home with [facility] and outpatient Oncology at [facility] when pt is medically ready. Ellie Jaeger RN Case Manager
--- NOTE | 2022-10-31 17:56 | PM.PN.1 ---
Subjective Subjective Date Patient Seen: 10/31/22 Interval history: 27 F with gastric cancer, started chemotherapy yesterday. Hypotensive today, likely due to diuretic which had been restarted. She was given 1 L fluid bolus, with additional L to be given over 10 hours. Exam Vital Signs (past 8 hours): - 10/31/22 12:35 10/31/22 12:40 10/31/22 12:58 Temperature 97.8 F Pulse Rate 112 H 110 H 109 H Respiratory Rate 15 Blood Pressure 97/42 L 95/35 L 102/36 L Pulse Oximetry 97 Oxygen Flow Rate 0 10/31/22 13:12 10/31/22 13:25 10/31/22 13:43 Temperature Pulse Rate 106 H 106 H 106 H Respiratory Rate Blood Pressure 97/37 L 97/41 L 108/58 L Pulse Oximetry Oxygen Flow Rate 10/31/22 15:08 Temperature Pulse Rate Respiratory Rate 111 H Blood Pressure 94/40 L Pulse Oximetry Oxygen Flow Rate Oxygen Delivery Method Room Air Oxygen Flow Rate 0 Narrative Exam Narrative: General: no acute distress, ill-appearing, thin Cardio:? Tachycardic regular rate and rhythm Abdomen:?soft with improved distension, continued epigastric tenderness Ext: no edema or joint effusion Objective Labs 10/30/22 06:34 10/30/22 06:34 Labs: Laboratory Results - last 24 hr 10/30/22 10/30/22 06:34 18:41 TSH 5.19 H Fluid Color Yellow Fluid Appearance Hazy Fluid RBC 2097 Fld Tot Nucleated Cell 268 Fluid Polynuclear WBCs 17 Fluid Mononuclear WBCs 80 Fluid Eosinophils 0 Fluid Other Cells 3 Body Fluid Clot No clots present [facility] Medical History Healthy adult Family History Father Cancer Aunt Cancer Social History household members: family and children Smoking Status: Former smoker Assessment & Plan Assessment & Plan narrative: 1. Metastatic gastric adenocarcinoma, with malignant ascites causing severe abd pain and NV on presentaion -CT imaging showed ascites and evidence of peritoneal carcinomatosis and omental caking -pelvic ultrasound showed no ovarian mass -CT imaging showed gastric wall thickening, and question of gallbladder mass, suspect higher likelihood of gastric cancer. EGD 10/18 with subtantial thickening and multiple biopsies obtained. -CA-125 elevated, CEA negative. -para removed 3L, cytology ordered (? if sent first time) negative for SBP with low number of PMNs. Ascites fluid albumin 2.6. SAAG >1.1. Reeval on 10/21 without enough fluid for paracentesis. Underwent bedside paracentesis on 10/26 with 3.4 L removed, and then again today, 10/30 with 2.4 L removed done for abdominal distension and pain. Sent for cell count only given acute pain to rule out infection. -Not tolerating any sort of nutrition, some concern for very poor absorption. Start TPN yesterday and will continue -increased PPI to 40 mg BID, added sucralfate. Otherwise pain not controlled with oral medications and has been difficult, likely in setting of poor gastric absorption. Added fentanyl patch 10/20 but patient only had sleepiness without improvement of pain. Now increased to 50 mcg with mild improvement. -with ascites, tried low dose diuretic to see if this can prevent re-accumulation of fluid. She did not tolerate with hypotension and tachycardia improved with fluids. Will likely need serial paracentesis. -at time of discharge will likely need referral for urgent oncology appointment and a oncologic surgeon.?Discussed case today with Dr. Refugio Lewis, solid tumor Oncology at and he will put in a referral to outpatient followup with Oncology at . He indicated the ongoing treatment with TPN is appropriate to ready the patient for eventual discharge and outpatient treatment with oncology. Patient/unit will be contacted on Oct 30 for this followup with . Patient may however, do all Oncology treatment locally. -previous hospitalist spoke with Dr. Collier oncology 10/22 who recommended checking additional tumor markers AFP and CA 15-3. He will follow along -previous hospitalist spoke with Dr. Dennis gen surg about possible omental laproscopic biopsy vs colonoscopy, she will discuss with onc -added 5mg SL zyprexa daily for NV, continue po SL morphine 5-15mg q4h for cancer pain. Use dilaudid 1mg IV q1h for breakthrough pain. -path returned on 10/25 confirms gastric adenocarcinoma as primary without markers for breast cancer, oncology started treatment today (10/30) with FOLFOX plus nivolumab every 2 weeks. -port in place 2. Breast masses -patient says she noticed them 1 month ago, had outpatient mammogram at [facility] -originally plan for biopsy as outpatient on 10/25, but this was missed due to being in the hospital -US bilateral breasts ordered, returned as ill-defined areas of heterogeneous, hypoechoic tissue concerning for malignancy -will defer to oncology guidance on whether biopsy is needed or not 3. Blurry vision, resolved with removal of initial Fentanyl patch, returned with new patch and likely side effect that may resolve with subsequent patches, continue to follow ??- CT head with contrast to evaluate for possible metastatic disease ordered and negative. 4. Severe acute protein calorie malnutrition ?- r/t inability to eat d/t nausea and epigastric discomfort and predicted increased kcal needs with metastatic cancer aeb? severe weight loss of 7.3% over one month, GI symptoms of nausea and anorexia for 2 months, and inadequate PO per diet recall. -The patient is at much higher risk for medical and surgical complications because of his malnutrition.? This increases the difficulty and complexity of medical and surgical interventions and increases the chances of poor outcomes such as morbidity and mortality. -started on TPN, appreciate dietary and pharmacy involvement in care. -has increased caloric to be adequate intake now. Starting to adjust TPN to be appropriate for going home in a few days. Best also to continue to treat with Thiamine 5. SBO vs severe ileus -CT abd showed dilated loops of bowel, patient hasn't had BM in over a week but no significant stool on scans -per gen surg likely due to ascites and cancer not constipation, very little bowel tones present -continue TPN - minimal bowel movements since admit, but also minimal intake and controlled today. 6. Nausea - with Fentynal patch, treat with sl ondansetron every 8 hours as scheduled dose. (chose this medication because can be used at home) 7. Pain control - Fentynal 25 mcg per 72 hours with break through medication increased to dilaudid 2 mg IV every 4 hours as needed. will follow and change as needed. 8. R hydronephrosis - continue chemo, no ZACK on recent labs and likely due to omental disease. Continue to follow. Consider urology consultation depending on clinical course. Follow labs and clinically. Code: Full code Dispo: probable discharge home, timing unclear, will complete first round of chemotherapy in a couple of days (takes 48 hours), and will need [facility] and follow up with oncology along with plan for serial paracentesis. Time Spent With Patient Critical Care time: I spent a total of [] minutes of critical care time on this patient's care today; this time is exclusive of procedural time. Quality VTE Deep Vein Thrombosis/Pulmonary Embolism Present on Admission: No
[2022-10-31] MEDS: LYTES IV (18:34)
[2022-10-31] MEDS: TRACE ELEMENTS IV (18:34)
[2022-10-31] MEDS: CALCIUM IV (18:34)
[2022-10-31] MEDS: [UNRECOGNIZED DRUG - OTHER] IV (18:34)
[2022-10-31] MEDS: DEXT IV (18:34)
[2022-11-01] MEDS: ONDANSETRON 4 MG/2 ML INJ IV ×5 (00:35→20:00)
[2022-11-01] MEDS: HYDROMORPHONE 2 MG INJ IV ×7 (00:38→20:35)
[2022-11-01 01:30] VITALS: BP 113/76; PULSE 125; RESP 19; TEMP 36.4; O2SAT 97
[2022-11-01 05:00] VITALS: BP 128/70; PULSE 125; RESP 14; O2SAT 99
[2022-11-01] MEDS: LORazepam 2 MG/ML INJ 1 MG IV (05:02)
[2022-11-01] MEDS: diphenhydrAMINE 50 MG/ML VIAL 25 MG IV ×2 (05:02→21:19)
--- NOTE | 2022-11-01 05:10 | PC.NURSE ---
Pt complained of chest pain, vitals taken and were WNL, except for HR 125. Pt has been tachy for several days. Pt stated I think it is anxiety. Spoke with Hospitalist. Lorazapam 1 mg given, pt resting with continue to monitor pt.
[2022-11-01] MEDS: METOCLOPRAMIDE 10 MG/2 ML INJ IV ×3 (07:42→17:22)
[2022-11-01 09:00] VITALS: BP 117/60; PULSE 131; RESP 17; TEMP 36.6; O2SAT 97
[2022-11-01] MEDS: OLANZapine ODT 10 MG TAB 5 MG PO (09:49)
[2022-11-01] MEDS: ENOXAPARIN 40 MG/0.4 ML SYRINGE SUBCUT (09:50)
[2022-11-01] MEDS: SODIUM CHLORIDE 0.9% FLUSH 10 ML IV ×2 (09:50→21:19)
[2022-11-01] MEDS: PANTOPRAZOLE 40 MG VIAL IV ×2 (09:50→20:35)
[2022-11-01 10:29] LABS: Alanine Aminotransferase 12 IU/L (<35); Alkaline Phosphatase 83 U/L (38-126); Aspartate Aminotransferase 22 IU/L (14-36); Bilirubin Total 0.8 mg/dL (0.2-1.3); Bilirubin Unconjugated 0.1 mg/dL (0.0-1.1); Globulin 2.1 g/dL (1.7-4.1); HEMOLYSIS < 15 (0-50); Total Protein 4.1 g/dL (6.3-8.2)
[2022-11-01 11:39] LABS: Add Manual Diff / Slide Review NO; Basophils Absolute Auto 0 /uL (0-100); Basophils Percent Auto 0.3 % (0-2); Eosinophils Absolute Auto 100 /uL (0-450); Eosinophils Percent Auto 0.9 % (2-4); Hematocrit 23.5 % (36-46); Hemoglobin 7.4 g/dL (12.0-16.0); Lymphocytes Absolute Auto 700 /uL (1100-4500); Lymphocytes Percent Auto 7.9 % (25-40); Mean Corpuscular HGB Conc 31.3 % (30-36); Mean Corpuscular Hemoglobin 23.2 PG (26-34); Monocytes Absolute Auto 100 /uL (0-900); Monocytes Percent Auto 1.2 % (3-14); Neutrophils Absolute Auto 8100 /uL (1500-7000); Neutrophils Percent Auto 89.7 % (50-75); Platelet Count 322 X10^3/uL (150-400); Red Blood Cell Count 3.18 X10^6/uL (4.0-5.2); Red Cell Distribution Width 15.6 % (11.6-14.8); White Blood Cell Count 9.1 X10^3/uL (4.5-11.0)
[2022-11-01 11:46] LABS: Glucose 101 mg/dL (70-100); HEMOLYSIS < 15 (0-50)
[2022-11-01 11:56] LABS: Sodium 137 mmol/L (137-145)
[2022-11-01 11:57] LABS: BUN Creatinine Ratio 41.5 (6-22); Blood Urea Nitrogen 22 mg/dL (7-17); Carbon Dioxide 31 mmol/L (22-32); Chloride 103 mmol/L (98-107); Potassium 4.3 mmol/L (3.4-5.1)
[2022-11-01 11:58] LABS: Calcium 7.5 mg/dL (8.4-10.2); Estimated Glomerular Filt Rate > 60 mL/min (>60); Magnesium 2.3 mg/dL (1.6-2.3)
[2022-11-01 11:59] LABS: Phosphorous 3.2 mg/dL (2.5-4.5)
[2022-11-01 13:00] VITALS: BP 121/63; PULSE 131; RESP 17; TEMP 36.2; O2SAT 98
[2022-11-01] MEDS: METHADONE 5 MG TABLET PO ×2 (16:29→20:34)
--- NOTE | 2022-11-01 16:49 | PC.NURSE ---
16:20 5FU infusion flushed totally through line, pump stopped, port line flushed with 10cc NS, female equashield . Port was deaccessed as per VVO from hospitalist britt Blanc RN. Information re when to call the oncologist building insulation supervisor or go to the ER was reviewed with the brother with reference to the pages of that info on the chemo sheets which we looked at together at the time of this note. This nurse also reviewed chemo precautions. The brother reassured this nurse that the patient will have a bathroom to herself at home. They are expecting discharge home tomorrow if the patient is able to wean off IV pain meds.
[2022-11-01 17:00] VITALS: BP 134/79; PULSE 142; RESP 17; TEMP 36.2; O2SAT 99
[2022-11-01] MEDS: MORPHINE 10 MG/0.5 ML ORAL SYRINGE 15 MG PO (17:23)
[2022-11-01] MEDS: TRACE ELEMENTS IV (17:30)
[2022-11-01] MEDS: DEXT IV (17:30)
[2022-11-01] MEDS: [UNRECOGNIZED DRUG - OTHER] IV (17:30)
[2022-11-01] MEDS: CALCIUM IV (17:30)
[2022-11-01] MEDS: LYTES IV (17:30)
--- NOTE | 2022-11-01 17:42 | PM.PN.1 ---
Subjective Subjective Interval history: 27-year-old female with newly diagnosed metastatic gastric cancer (pathology revealing invasive poorly differentiated adenocarcinoma) with associated peritoneal carcinomatosis, omental caking, and malignant ascites who is presently hospital day 16. Patient has required paracentesis x2 for ascites and generalized pain. She underwent a port placement on October 23, 2022. Oncology consultation was obtained on October 29 and she was initiated on palliative chemotherapy while she is been here. She is completing her last dose of chemotherapy today. Patient is unable to meet her nutritional needs and has been on TPN. Plans are in place for her to discharge home, with TPN at home via [facility], and outpatient follow-up with Oncology. Her next chemotherapy treatment is November 13 per report. Patient is a bit drowsy and slightly forgetful. Her family is also present at bedside. She denies any nausea or vomiting in the last couple of days. Her spouse reports she had vomiting both last night and the night before. Patient reports her pain remains poorly managed. She does get very sleepy from the IV Dilaudid she is receiving. She is anxious to be discharged home. Exam Vital Signs (past 8 hours): - 11/01/22 13:00 Temperature 97.1 F L Pulse Rate 131 H Respiratory Rate 17 Blood Pressure 121/63 Pulse Oximetry 98 Oxygen Flow Rate 0 Oxygen Delivery Method Room Air Oxygen Flow Rate 0 Narrative Exam Narrative: GEN: Ill-appearing adult female, Alert and oriented x 3, appears uncomfortable HEENT:NC, Face symmetric CHEST: Respiratory excursions symmetric, diminished but CTAB CV: Tachycardic with regular rhythm, no M/R/G ABD: Firm, distended, diffusely tender, BT present in all 4 quadrants EXTR: warm, well perfused, no C/C; 3 to 4+ bilateral lower extremity pitting edema SKIN: warm and dry, no rash NEURO: Alert and oriented x 3, nonfocal Objective Labs 11/01/22 11:00 11/01/22 11:00 Labs: Laboratory Results - last 24 hr 11/01/22 11/01/22 11/01/22 10:00 10:00 11:00 WBC Cancelled RBC Cancelled Hgb Cancelled Hct Cancelled MCV Cancelled MCH Cancelled MCHC Cancelled RDW Cancelled Plt Count Cancelled Neut % (Auto) Cancelled Lymph % (Auto) Cancelled [place] % (Auto) Cancelled Eos % (Auto) Cancelled Baso % (Auto) Cancelled Neut # (Auto) Cancelled Lymph # (Auto) Cancelled [place] # (Auto) Cancelled Eos # (Auto) Cancelled Baso # (Auto) Cancelled Sodium 137 Potassium 4.3 Chloride 103 Carbon Dioxide 31 BUN 22 H Creatinine 0.53 Estimated GFR > 60 BUN/Creatinine Ratio 41.5 H Glucose 101 H Calcium 7.5 L Phosphorus 3.2 Magnesium 2.3 Total Bilirubin 0.8 Conjugated Bilirubin 0.0 Unconjugated Bilirubin 0.1 AST 22 ALT 12 Alkaline Phosphatase 83 Total Protein 4.1 L Albumin 2.0 L Globulin 2.1 Albumin/Globulin Ratio 1.0 11/01/22 11:00 WBC 9.1 RBC 3.18 L Hgb 7.4 L Hct 23.5 L MCV 74.0 L MCH 23.2 L MCHC 31.3 RDW 15.6 H Plt Count 322 Neut % (Auto) 89.7 H Lymph % (Auto) 7.9 L [place] % (Auto) 1.2 L Eos % (Auto) 0.9 L Baso % (Auto) 0.3 Neut # (Auto) 8100 H Lymph # (Auto) 700 L [place] # (Auto) 100 Eos # (Auto) 100 Baso # (Auto) 0 Sodium Potassium Chloride Carbon Dioxide BUN Creatinine Estimated GFR BUN/Creatinine Ratio Glucose Calcium Phosphorus Magnesium Total Bilirubin Conjugated Bilirubin Unconjugated Bilirubin AST ALT Alkaline Phosphatase Total Protein Albumin Globulin Albumin/Globulin Ratio [facility] Medical History Healthy adult Family History (Reviewed 10/17/22 @ 02:48 by Akila Stallworth ORNAMENTAL BRICK [facility]) Father Cancer Aunt Cancer Social History household members: family and children Smoking Status: Former smoker Assessment & Plan Assessment & Plan narrative: 1. Metastatic gastric adenocarcinoma, poorly differentiated, with associated peritoneal carcinomatosis, omental caking, and malignant ascites Patient has undergone paracentesis x2 on October 26 with 3 4 L removed and October 30 with 2.4 L removed. She has received her initial chemotherapy treatment under the direction of Dr. Collier. She is been receiving fentanyl and IV Dilaudid for pain. She was initially placed on a fentanyl patch 25 mcg. This was increased to 50 mcg on October 30. Unfortunately she is continued to require significant amounts of IV analgesia. At this point, her morphine equivalent is approximately 260 mg (100 of which is being given per fentanyl patch). Discussed with the patient that fentanyl is not a great option for management of malignant pain due to the slow titration requirement. Discussed initiation of methadone and she is receptive. EKG was performed which revealed a QTC of 0.408. For now, plan to keep fentanyl patch in place as it is. Will add methadone 5 mg t.i.d.. I have asked the patient's primary bedside nurse to work on using the oral morphine for breakthrough pain rather than the IV Dilaudid as the goal is for her to discharge home with adequate pain control as soon as possible. Dr. Cast and discuss the case with Dr. Refugio Lewis, solid tumor oncology at the [facility]. He is planning an outpatient follow-up/referral at the [facility] if patient desires. Patient will be contacted directly by the [facility] oncology department. She may ultimately elect to continue local oncologic care. 2. Bilateral breast masses Breast ultrasounds were performed which were both concerning for malignancy. No biopsy was pursued. Defer plan of care to Oncology. Biopsy has not been pursued. 3. Severe acute protein calorie malnutrition Secondary to malignancy. Patient is receiving TPN. [facility] has been set up for home TPN. Patient has a port in place. We will be able to discontinue PICC line at discharge. Patient has evidence of significant 3rd spacing. This is likely also contributing to her tachycardia she is likely intravascularly volume depleted. Albumin is 2.0. 4. SBO severe ileus on imaging Findings were felt to be secondary to her ascites and cancer rather than constipation/ileus/SBO. 5. Nausea Patient is receiving Zofran as needed. She is also receiving olanzapine 5 mg daily. This could be increased for better control of her nausea moving forward. 6. Sinus tachycardia Likely physiologic related to her malignancy. 7. Right-sided hydronephrosis Likely secondary to her gastric malignancy and obstruction. Presently creatinine is stable. May consider urology consultation if her renal function declines and it is clinically appropriate Code status Full Prophylaxis On Lovenox Disposition Possibly home tomorrow Time Spent With Patient Critical Care time: I spent a total of [] minutes of critical care time on this patient's care today; this time is exclusive of procedural time. Quality VTE Deep Vein Thrombosis/Pulmonary Embolism Present on Admission: No
[2022-11-01] MEDS: FAT EMULSIONS 50 GM/250 ML EMULSION IV (17:48)
[2022-11-01] MEDS: MORPHINE IR 15 MG TABLET PO (18:00)
[2022-11-01 20:24] VITALS: BP 122/72; PULSE 145; RESP 15; TEMP 36.7; O2SAT 100
[2022-11-01] MEDS: MORPHINE IR 15 MG TABLET 30 MG PO (22:22)
[2022-11-01] MEDS: hydrOXYzine pamoate 25 MG CAPSULE PO (23:22)
[2022-11-02] MEDS: ONDANSETRON 4 MG/2 ML INJ IV (01:33)
[2022-11-02] MEDS: diphenhydrAMINE 50 MG/ML VIAL 25 MG IV ×2 (02:28→10:10)
[2022-11-02] MEDS: MORPHINE IR 15 MG TABLET 30 MG PO ×2 (03:16→06:53)
[2022-11-02 05:55] VITALS: BP 124/64; PULSE 132; RESP 20; TEMP 36.7; O2SAT 97
[2022-11-02 06:52] LABS: Basophils Absolute Auto 0 /uL (0-100); Basophils Percent Auto 0.3 % (0-2); Eosinophils Absolute Auto 100 /uL (0-450); Hematocrit 21.2 % (36-46); Lymphocytes Absolute Auto 600 /uL (1100-4500); Lymphocytes Percent Auto 9.3 % (25-40); Mean Corpuscular HGB Conc 31.4 % (30-36); Mean Corpuscular Hemoglobin 23.1 PG (26-34); Mean Corpuscular Volume 73.5 fL (80-100); Monocytes Absolute Auto 0 /uL (0-900); Monocytes Percent Auto 0.6 % (3-14); Neutrophils Absolute Auto 5400 /uL (1500-7000); Neutrophils Percent Auto 88.8 % (50-75); Platelet Count 277 X10^3/uL (150-400); Red Blood Cell Count 2.88 X10^6/uL (4.0-5.2); Red Cell Distribution Width 15.6 % (11.6-14.8); White Blood Cell Count 6.1 X10^3/uL (4.5-11.0)
[2022-11-02 07:04] LABS: Add Manual Diff / Slide Review SLIDE REVIEW; Hemoglobin 6.6 g/dL (12.0-16.0)
[2022-11-02 07:17] LABS: Anisocytosis 2+; Stomatocytes 1+
[2022-11-02 07:19] LABS: BUN Creatinine Ratio 38.9 (6-22); Blood Urea Nitrogen 21 mg/dL (7-17); Calcium 7.4 mg/dL (8.4-10.2); Carbon Dioxide 27 mmol/L (22-32); Chloride 101 mmol/L (98-107); Estimated Glomerular Filt Rate > 60 mL/min (>60); Glucose 99 mg/dL (70-100); HEMOLYSIS < 15 (0-50); Magnesium 2.2 mg/dL (1.6-2.3); Phosphorous 3.1 mg/dL (2.5-4.5); Potassium 4.3 mmol/L (3.4-5.1); Sodium 133 mmol/L (137-145)
[2022-11-02 07:23] LABS: Alanine Aminotransferase 16 IU/L (<35); Albumin Globulin Ratio 0.8 (1.0-2.8); Alkaline Phosphatase 126 U/L (38-126); Aspartate Aminotransferase 29 IU/L (14-36); Bilirubin Unconjugated 0.2 mg/dL (0.0-1.1); Globulin 2.5 g/dL (1.7-4.1); HEMOLYSIS < 15 (0-50); Total Protein 4.5 g/dL (6.3-8.2)
[2022-11-02] MEDS: METOCLOPRAMIDE 10 MG/2 ML INJ IV ×2 (08:01→14:34)
[2022-11-02 10:00] VITALS: BP 114/66; PULSE 129; RESP 17; TEMP 36.3; O2SAT 97
[2022-11-02] MEDS: METHADONE 5 MG TABLET PO ×2 (10:07→14:34)
[2022-11-02] MEDS: OLANZapine ODT 10 MG TAB 5 MG PO (10:09)
[2022-11-02] MEDS: SODIUM CHLORIDE 0.9% FLUSH 10 ML IV (10:10)
[2022-11-02] MEDS: PANTOPRAZOLE 40 MG VIAL IV (10:10)
[2022-11-02 11:47] VITALS: BP 108/55; PULSE 127; RESP 17; TEMP 36.2
[2022-11-02 12:03] VITALS: BP 108/64; PULSE 125; RESP 17; TEMP 36.4
--- NOTE | 2022-11-02 14:11 | CM.DPC ---
DCP: This CM has been touching base with [facility] over the past two days. Yesterday I spoke with Addi about anticipation of discharge either yesterday or today. Although pt did not discharge yesterday due to needed medical issues. Per my phone conversation yesterday with Addiabe [phone] from [facility], the TPN prescription was sent over earlier in the week, was mixed at [facility] and unless anything has changed is ready to go for this patient. This CM called Jeffrey pharmacist here at inpatient pharmacy who agrees that [facility] has the current script that is correct. This CM called and spoke with Heena Nurse R Programmer at [facility] and let her know that pt will be going home today with an anticipated discharge time of around 4pm after she receives 1 unit PRBC's. Per Heena the RN from [facility] will be coming to hospital at 3pm to the patient's room. This CM called and notified [facility] that pt will be discharging this afternoon. This CM spoke with Pamela at [facility] and let her know that we are anticipating discharge this afternoon. This DCP reviewed upcoming appts with Pamela for pt at [facility]. With anticipation of Jan Hawley to start care soon. This CM called Shannon smooth stucco resurfacerTRINIDAD Clinton send medical records to Jan Morales if able. Forwarded all information that was given to this CM from Pts Brother yesterday. See notes from yesterday with Jan Hawley contact name Phone # and Fax #. Ellie Jaeger RN Case Manager
[2022-11-02] MEDS: MORPHINE 10 MG/0.5 ML ORAL SYRINGE 15 MG PO (14:34)
[2022-11-02] MEDS: fentaNYL 50 MCG/PATCH TOP (14:36)
[2022-11-02 15:00] VITALS: BP 108/55; PULSE 127; RESP 17; TEMP 36.2; O2SAT 97
[2022-11-02 15:56] VITALS: BP 108/55; PULSE 127; RESP 18; TEMP 36.2
--- NOTE | 2022-11-02 19:45 | PM.DS.1 ---
History of Present Illness History of Present Illness Chief complaint: ABD pain, SOB Discharge Providers Provider Date of admission: 10/16/22 22:30 Discharge Date: 11/02/22 Consults: 10/17/22 03:16 Consult to WELDER HELPER - Weapons System Instrument Mechanic Routine Comment: likely aggressive adenocarcinoma, support services WELDER HELPER Consult needed for:: Community [facility] Res Need 10/17/22 03:21 Consult to Physician Routine Comment: Consulting Provider: Brenden Buenrostro Reason for consultation: Possible GI/ adenocarcinoma Has provider been notified: Yes 10/17/22 14:24 Consult to Dietitian, Adult Routine Comment: Reason For Exam: no appetite, losing wieght without trying (20 lbs) 10/19/22 09:08 Consult to Dietitian, Adult Routine Comment: needs liquid supplements Reason For Exam: malnutrition, new dx cancer 10/22/22 10:57 Consult to Oncology Routine Comment: Consulting Provider: Gurinder Collier Reason for consultation: new onset malignancy Has provider been notified: Yes 10/24/22 08:24 Consult to General Surgery Routine Comment: Consulting Provider: Tino Buenrostro Reason for consultation: SBO Has provider been notified: Yes Discharge provider: Nuria Petersen MD Summary Hospital Course Hospital Course: 27-year-old female with newly 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 She had seen in outpatient clinic with these complaints it was felt she was constipated and she received treatment without improvement.? Over the 5 days prior to admission, she was having worsening abdominal pain, nausea, and increasing abdominal distention. She would also been having breast tenderness with palpable masses and had undergone some workup prior to admission and had planned biopsies scheduled which were due to occur during admission. She underwent abdominal pelvic CT which revealed ascites, peritoneal thickening, and omental caking concerning for peritoneal spread of a GI or adenocarcinoma. There was moderate gastric wall thickening. Possible serosal bowel implants. General surgery consultation was obtained and performed EGD on 10/18/2022 with results concerning for an adenomatous polyp at the GE junction and thickened gastric processes for which several biopsies were obtained. Patient has required paracentesis x2 for ascites and generalized pain.? Pathology revealed poorly differentiated invasive adenocarcinoma. She underwent a port placement on October 23, 2022.? Oncology consultation was obtained on October 29 and she was initiated on palliative chemotherapy while she is been here.? She completed her last dose of chemotherapy on November 01.? Patient is unable to meet her nutritional needs and has been on TPN.? Plans are in place for her to discharge home, with TPN at home via [facility], and outpatient follow-up with Oncology.? Her next chemotherapy treatment is November 13 per report. She is considering a 2nd opinion with Oncology. was contacted during her hospitalization and plan on contacting her for outpatient appointment. Pain Management was challenging during her hospitalization. She was receiving frequent IV hydromorphone. She was placed on a 25 mcg fentanyl patch which was ultimately increased to 50 mcg. Unfortunately her pain remains poorly controlled. She was initiated on methadone 5 mg t.i.d. on November 01, 2022. This greatly improved her pain management and at the time of discharge she was not requiring any IV analgesia. Recommend transitioning from be 50 mcg fentanyl to methadone 7.5 mg t.i.d. at follow-up appointment with Oncology to enable better pain management and avoidance of redundant long-acting medication treatment with opioids Status at Discharge Cognitive/behavioral status at discharge: at baseline, oriented Overall status at discharge: patient is not back to baseline Exam Vital Signs (past 8 hours): - 11/02/22 11:47 11/02/22 12:03 11/02/22 15:00 Temperature 97.1 F L 97.5 F L 97.1 F L Pulse Rate 127 H 125 H 127 H Respiratory Rate 17 17 17 Blood Pressure 108/55 L 108/64 108/55 L Pulse Oximetry 97 Oxygen Flow Rate 0 11/02/22 15:56 Temperature 97.1 F L Pulse Rate 127 H Respiratory Rate 18 Blood Pressure 108/55 L Pulse Oximetry Oxygen Flow Rate Oxygen Delivery Method Room Air Oxygen Flow Rate 0 Narrative Exam Narrative: GEN:? Ill-appearing adult female, Alert and oriented x 3, appears more comfortable today HEENT:NC, Face symmetric CHEST: Respiratory excursions symmetric, diminished but CTAB CV:? Tachycardic with regular rhythm, no M/R/G ABD:? Firm, distended, diffusely tender, BT present in all 4 quadrants EXTR: warm, well perfused, no C/C; 3 to 4+ bilateral lower extremity pitting edema SKIN: warm and dry, no rash NEURO: Alert and oriented x 3, nonfocal Objective Labs 11/02/22 06:20 11/02/22 06:20 Labs: Laboratory Results - last 24 hr 11/02/22 11/02/22 11/02/22 06:20 06:20 06:20 WBC 6.1 RBC 2.88 L Hgb 6.6 L* Hct 21.2 L MCV 73.5 L MCH 23.1 L MCHC 31.4 RDW 15.6 H Plt Count 277 Neut % (Auto) 88.8 H Lymph % (Auto) 9.3 L [place] % (Auto) 0.6 L Eos % (Auto) 1.0 L Baso % (Auto) 0.3 Neut # (Auto) 5400 Lymph # (Auto) 600 L [place] # (Auto) 0 Eos # (Auto) 100 Baso # (Auto) 0 RBC Morphology Not Reportable Anisocytosis 2+ H Stomatocytes 1+ H Sodium 133 L Potassium 4.3 Chloride 101 Carbon Dioxide 27 BUN 21 H Creatinine 0.54 Estimated GFR > 60 BUN/Creatinine Ratio 38.9 H Glucose 99 Calcium 7.4 L Phosphorus 3.1 Magnesium 2.2 Total Bilirubin 1.0 Conjugated Bilirubin 0.0 Unconjugated Bilirubin 0.2 AST 29 ALT 16 Alkaline Phosphatase 126 D Total Protein 4.5 L Albumin 2.0 L Globulin 2.5 Albumin/Globulin Ratio 0.8 L Blood Type Antibody Screen Crossmatch 11/02/22 07:50 WBC RBC Hgb Hct MCV MCH MCHC RDW Plt Count Neut % (Auto) Lymph % (Auto) [place] % (Auto) Eos % (Auto) Baso % (Auto) Neut # (Auto) Lymph # (Auto) [place] # (Auto) Eos # (Auto) Baso # (Auto) RBC Morphology Anisocytosis Stomatocytes Sodium Potassium Chloride Carbon Dioxide BUN Creatinine Estimated GFR BUN/Creatinine Ratio Glucose Calcium Phosphorus Magnesium Total Bilirubin Conjugated Bilirubin Unconjugated Bilirubin AST ALT Alkaline Phosphatase Total Protein Albumin Globulin Albumin/Globulin Ratio Blood Type B Positive Antibody Screen Negative Crossmatch See Detail PENDING SALE TO [facility] Medical History Healthy adult Family History Father Cancer Aunt Cancer Social History household members: family and children Smoking Status: Former smoker Discharge Plan Discharge Plan Patient Disposition: Home Health Service Transfer to: [facility] Provider Discharge Comment: Please contact Dr. Collier's office on Friday to schedule a follow-up appointment. If you do not get a call by Friday, please call [facility] (Dr. Lewis) [phone] to schedule 2nd opinion consult. Eat and drink as tolerated. If cold/hot beverages are tough to tolerate (due to chemo side effect) take in room temperature fluids only. [facility] is providing your TPN and will manage your port care. For pain: Take methadone 5 mg three times per day (morning, mid day, and night) Take morphine as needed for breakthrough pain Continue fentanyl patch at 50 mcg/hr When you follow-up with Oncology: Would recommend discontinuing fentanyl and increasing methadone to 7.5 mg three times daily (discuss this recommendation with the oncologist) and continuing morphine as needed for breakthrough pain. For bowels: Take senna/docusate (Senna Plus) twice daily. If you have loose bowel movements, decrease to once daily Discuss further plan for treatment or biopsy of the breast masses when you see the oncologist at your follow-up appointment. Nursing Discharge Comment: return to ER/ call 911 if shortness of breath, fever > 101.9, increased pain that is not relieved by pain meds. monitor port o cath as needed, flush as instructed by junior account executive. keep the dressing clean and dry. it was such a pleasure to meet you and to be your nurse this week. i hope you have a wonderful evening and please take care of yourself and Todd! thank you! ( : Discharge orders & Medications Prescriptions: New fentanyl 50 mcg/hr Patch 72 Hour 50 mcg topical Q72H Qty: 5 0RF olanzapine [Zyprexa Zydis] 10 mg Tablet,Disintegrating 5 mg PO DAILY Qty: 30 0RF morphine 15 mg Tablet 30 mg PO Q4H PRN (Reason: Pain, Severe (7-10)) Qty: 60 0RF methadone 5 mg Tablet 5 mg PO TID Qty: 45 0RF hydroxyzine pamoate 25 mg Capsule 25 mg PO Q6HR PRN (Reason: Itching) Qty: 30 0RF pantoprazole [Protonix] 40 mg tablet,delayed release (DR/EC) 40 mg PO DAILY Qty: 30 0RF ondansetron 8 mg tablet,disintegrating 8 mg PO Q8H PRN (Reason: nausea and vomiting) Qty: 30 0RF Senna Plus 8.6-50 mg capsule 2 tab-cap PO BID Qty: 60 0RF Discontinued sennosides [senna] 8.6 mg tablet 8.6 mg PO DAILY Label Comments: TAKE 1 TABLET BY MOUTH EVERY DAY sucralfate 1 gram tablet 1 g PO 4XD Label Comments: TAKE 1 TABLET BY MOUTH FOUR TIMES DAILY ondansetron HCl 4 mg tablet 4 mg PO Q8H Label Comments: TAKE 1 TABLET BY MOUTH EVERY 8 HOURS FOR UP TO 15 DAYS NEEDED FOR NAUSEA OR VOMITING docusate sodium 100 mg capsule 100 mg PO BID Label Comments: TAKE 1 CAPSULE BY MOUTH TWICE DAILY FOR 45 DAYS Follow up/Referrals: Lindsey Dennis MD [Physician] - (Follow up only as needed. Call with any questions about EGD procedure. I will call with biopsy results as soon as possible. I will make a referral to oncology through my office as well. ) Other Ambulatory Orders: Body Fluid Culture (Routine) Timeframe: 1 Day Facility: [facility] - Location: Laboratory Ordered By: Jefrfey Milan Cell Count w Diff Body Fluid (Routine) Timeframe: 1 Day Facility: [facility] - Location: Laboratory Ordered By: Jeffrey Milan Complete Blood Count Auto Diff (Stat) Timeframe: 5 Days Facility: [facility] - Location: Laboratory Ordered By: Gurinder Collier Complete Blood Count Auto Diff (Stat) Timeframe: 5 Days Facility: [facility] - Location: Laboratory Ordered By: Gurinder Collier Complete Blood Count Auto Diff (Stat) Timeframe: 5 Days Facility: [facility] - Location: Laboratory Ordered By: Gurinder Collier Complete Blood Count Auto Diff (Stat) Timeframe: 5 Days Facility: [facility] - Location: Laboratory Ordered By: Gurinder Collier Complete Blood Count Auto Diff (Stat) Timeframe: 5 Days Facility: [facility] - Location: Laboratory Ordered By: Gurinder Collier Complete Blood Count Auto Diff (Stat) Timeframe: 5 Days Facility: [facility] - Location: Laboratory Ordered By: Gurinder Collier Complete Blood Count Auto Diff (Stat) Timeframe: 5 Days Facility: [facility] - Location: Laboratory Ordered By: Gurinder Collier Complete Blood Count Auto Diff (Stat) Timeframe: 5 Days Facility: [facility] - Location: Laboratory Ordered By: Gurinder Collier Complete Blood Count Auto Diff (Stat) Timeframe: 5 Days Facility: [facility] - Location: Laboratory Ordered By: Gurinder Collier Complete Blood Count Auto Diff (Stat) Timeframe: 5 Days Facility: [facility] - Location: Laboratory Ordered By: Gurinder Collier Complete Blood Count Auto Diff (Stat) Timeframe: 5 Days Facility: [facility] - Location: Laboratory Ordered By: Gurinder Collier Complete Blood Count Auto Diff (Stat) Timeframe: 5 Days Facility: [facility] - Location: Laboratory Ordered By: Gurinder Collier Cholesterol (Stat) Timeframe: 1 Day Facility: [facility] - Location: Laboratory Ordered By: Jeffrey Milan Comprehensive Metabolic Panel (Stat) Timeframe: 5 Days Facility: [facility] - Location: Laboratory Ordered By: Gurinder Collier Comprehensive Metabolic Panel (Stat) Timeframe: 5 Days Facility: [facility] - Location: Laboratory Ordered By: Gurinder Collier Comprehensive Metabolic Panel (Stat) Timeframe: 5 Days Facility: [facility] - Location: Laboratory Ordered By: Gurinder Collier Comprehensive Metabolic Panel (Stat) Timeframe: 5 Days Facility: [facility] - Location: Laboratory Ordered By: Gurinder Collier Comprehensive Metabolic Panel (Stat) Timeframe: 5 Days Facility: [facility] - Location: Laboratory Ordered By: Gurinder Collier Comprehensive Metabolic Panel (Stat) Timeframe: 5 Days Facility: [facility] - Location: Laboratory Ordered By: Gurinder Collier Comprehensive Metabolic Panel (Stat) Timeframe: 5 Days Facility: [facility] - Location: Laboratory Ordered By: Gurinder Collier Comprehensive Metabolic Panel (Stat) Timeframe: 5 Days Facility: [facility] - Location: Laboratory Ordered By: Gurinder Collier Comprehensive Metabolic Panel (Stat) Timeframe: 5 Days Facility: [facility] - Location: Laboratory Ordered By: Gurinder Collier Comprehensive Metabolic Panel (Stat) Timeframe: 5 Days Facility: [facility] - Location: Laboratory Ordered By: Gurinder Collier Comprehensive Metabolic Panel (Stat) Timeframe: 5 Days Facility: [facility] - Location: Laboratory Ordered By: Gurinder Collier Comprehensive Metabolic Panel (Stat) Timeframe: 5 Days Facility: [facility] - Location: Laboratory Ordered By: Gurinder Collier Glucose (Stat) Timeframe: 1 Day Facility: [facility] - Location: Laboratory Ordered By: Jeffrey Milan Miscellaneous to [facility] (Routine) Timeframe: 1 Day Facility: [facility] - Location: Laboratory Ordered By: Jeffrey Milan Lactate Dehydrogenase (Stat) Timeframe: 1 Day Facility: [facility] - Location: Laboratory Ordered By: Jeffrey Milan Total Protein (Stat) Timeframe: 1 Day Facility: [facility] - Location: Laboratory Ordered By: Jeffrey Milan Diet/Activity/Treatments Diet: Diet as Tolerated Activity: As tolerated Oxygen: N/A Visit Report/Discharge Packet Instructions: Stomach Cancer, DI for Prescription Opioid Use, DI for Implanted Venous Access Port Stand Alone Forms: Patient Portal/API, Stroke Signs & Symptoms Quality VTE Deep Vein Thrombosis/Pulmonary Embolism Present on Admission: No
--- NOTE | 2022-11-03 09:02 | CM.DPC ---
DCP Cont: Patient discharged home yesterday. Confirmed with Pamela at [facility], that DC Bryologist, Sri, had let her know. This DC Bryologist did fax over the DC Summary, face to face, and orders for nursing, Pamela aware that this is being faxed. P: Patient discharged home, faxed [facility] DC Summary and orders. Annette Velasco RN/Advertisement Distributor
== END 2022-11-02 17:30 | disposition home health service (06) | DRG 240 ==
LOC: ED 18:09 → AC 22:31
PROVIDERS: Emergency Medicine; Internal Medicine; Internal Medicine Medical Oncology; Neuromusculoskeletal Medicine, Sports Medicine; Student in an Organized Health Care Education/Training Program; Surgery; Admitting Provider Nurse Practitioner Family; Emergency Provider Emergency Medicine; Referring Provider Emergency Medicine; Visit Provider Nurse Practitioner Family
PROC: 0DJ08ZZ Inspection of Upper Intestinal Tract, Via Natural or Artificial Opening Endoscopic (ICD-10-PCS; CPT 43235; principal; 2022-10-18 15:15)
PROC: 0JH60WZ Insertion of Totally Implantable Vascular Access Device into Chest Subcutaneous Tissue and Fascia, Open Approach (ICD-10-PCS; principal; 2022-10-23 15:30)
DX: C78.89 Secondary malignant neoplasm of other digestive organs (principal); G89.3 Neoplasm related pain (acute) (chronic); R18.0 Malignant ascites; E43 Unspecified severe protein-calorie malnutrition; N13.30 Unspecified hydronephrosis; E86.0 Dehydration; H53.8 Other visual disturbances; R11.2 Nausea with vomiting, unspecified; N63.22 Unspecified lump in the left breast, upper inner quadrant; N63.10 Unspecified lump in the right breast, unspecified quadrant; Z20.822 Contact with and (suspected) exposure to COVID-19; Z87.891 Personal history of nicotine dependence; Z68.30 Body mass index [BMI] 30.0-30.9, adult
CPT/HCPCS: 36415; 36430; 36561; 36591; 36592; 43239; 49083; 70470; 71045; 71275; 74177; 76000; 76642; 76700; 76705; 76830; 76856; 80048; 80053; 80076; 81001; 81003; 82040; 82105; 82378; 82550; 82962; 83605; 83690; 83735; 84100; 84134; 84145; 84443; 84450; 84460; 84478; 84484; 84703; 85007; 85025; 85027; 85610; 86300; 86301; 86304; 86850; 86900; 86901; 87040; 87070; 87075; 87086; 87116; 87205; 87206; 87635; 87801; 89051; 93005; 93010; 93306; 96374; 96375; 96376; 99284; C9803; P9016; B4185; B4189; C1788; C9113; J0330; J0640; J0690; J1170; J1200; J1642; J1644; J1650; J1815; J1940; J2060; J2270; J2405; J2543; J2704; J2765; J3475; J3480; J3490; J9190; J9263; J9299; P9041; Q9967

== ENCOUNTER 2022-11-05 15:37 | Emergency (ER) | payer OTHER, MEDICAID, SELFPAY ==
[2022-10-17 14:11] VITALS: BMI 26.7
[2022-11-05] VITALS (43 sets, daily range): BP systolic 110–135; BP diastolic 65–83; PULSE 121–132; RESP 8–26; TEMP 36.4; O2SAT 95–100; BMI 29.9
--- NOTE | 2022-11-05 15:50 | DI.RAD.S_ITS ---
PROCEDURE: XR CHEST 1V INDICATIONS: Shortness of breath TECHNIQUE: One view of the chest was acquired. COMPARISON: [facility], CR, XR CHEST 1V, 10/26/2022, 14:48. FINDINGS: Surgical changes and devices: None. Lungs and pleura: Lungs are clear. No pleural effusions or pneumothorax. Mediastinum: Mediastinal contours appear normal. Heart size is normal. Bones and chest wall: No suspicious bony lesions. Overlying soft tissues appear unremarkable. IMPRESSION: Stable radiographic evaluation of the chest without acute cardiopulmonary abnormalities or focal airspace disease. Dictated by: Michael Logan M.D. on 11/05/2022 at 16:16 Approved by: Michael Logan M.D. on 11/05/2022 at 16:16
--- NOTE | 2022-11-05 16:11 | DI.RAD.S_ITS ---
PROCEDURE: XR CHEST FOR PICC 1V INDICATIONS: needs picc for tpn COMPARISON: [facility], CR, XR CHEST 1V, 11/05/2022, 16:06. FINDINGS: PICC was placed by the intravenous therapy team from the left side. Fluoroscopic spot film demonstrates the tip of PICC projecting to the area of SVC. IMPRESSION: Tip of PICC projects to the area of SVC. Dictated by: Mando Moctezuma M.D. on 11/05/2022 at 17:23 Approved by: Mando Moctezuma M.D. on 11/05/2022 at 17:24
--- NOTE | 2022-11-05 16:16 | DI.US.S_ITS ---
PROCEDURE: US ABDOMEN LIMITED INDICATIONS: ASCITES - SPEEDY FOR PARACENTESIS TECHNIQUE: Real-time scanning was performed of the abdomen, with image documentation. COMPARISON: [facility], US, US ABDOMEN LIMITED, 10/24/2022, 9:40. FINDINGS: Limited ultrasound examination of abdomen shows moderate amount of ascites fluid in all 4 quadrants of abdomen. IMPRESSION: Moderate amount of ascites in abdomen. Dictated by: Mando Moctezuma M.D. on 11/05/2022 at 19:13 Approved by: Mando Moctezuma M.D. on 11/05/2022 at 19:14
[2022-11-05 16:19] LABS: Add Manual Diff / Slide Review NO; Basophils Absolute Auto 0 /uL (0-100); Basophils Percent Auto 0.2 % (0-2); Eosinophils Absolute Auto 0 /uL (0-450); Eosinophils Percent Auto 0.1 % (2-4); Hematocrit 26.5 % (36-46); Hemoglobin 8.6 g/dL (12.0-16.0); Lymphocytes Absolute Auto 300 /uL (1100-4500); Lymphocytes Percent Auto 4.8 % (25-40); Mean Corpuscular HGB Conc 32.5 % (30-36); Mean Corpuscular Hemoglobin 24.1 PG (26-34); Monocytes Absolute Auto 100 /uL (0-900); Neutrophils Absolute Auto 6100 /uL (1500-7000); Neutrophils Percent Auto 92.9 % (50-75); Platelet Count 320 X10^3/uL (150-400); Red Blood Cell Count 3.58 X10^6/uL (4.0-5.2); White Blood Cell Count 6.6 X10^3/uL (4.5-11.0)
[2022-11-05 16:29] LABS: INR 1.2 (0.9-1.3); Prothrombin Time 14.1 SECONDS (10.1-12.7)
[2022-11-05] MEDS: ONDANSETRON 4 MG/2 ML INJ IV (16:31)
[2022-11-05] MEDS: MORPHINE 4 MG/ML INJ IV (16:31)
[2022-11-05 16:33] LABS: Alanine Aminotransferase 18 IU/L (<35); Albumin 2.7 g/dL (3.5-5.0); Albumin Globulin Ratio 0.8 (1.0-2.8); Alkaline Phosphatase 172 U/L (38-126); Aspartate Aminotransferase 25 IU/L (14-36); BUN Creatinine Ratio 30.9 (6-22); Bilirubin Total 1.3 mg/dL (0.2-1.3); Blood Urea Nitrogen 17 mg/dL (7-17); Calcium 7.9 mg/dL (8.4-10.2); Carbon Dioxide 27 mmol/L (22-32); Chloride 97 mmol/L (98-107); Estimated Glomerular Filt Rate > 60 mL/min (>60); Globulin 3.3 g/dL (1.7-4.1); Glucose 108 mg/dL (70-100); HEMOLYSIS < 15 (0-50); Sodium 130 mmol/L (137-145)
[2022-11-05 16:34] LABS: Lactate (Lactic Acid) 1.3 mmol/L (0.7-2.1)
[2022-11-05 16:43] LABS: COVID19 -Nasal RAPID Negative (Negative)
[2022-11-05 16:45] LABS: NT-proBNP (BNP-Adult 18+) 352 pg/mL (<125); Troponin I < 0.012 ng/mL (0.01-0.034)
--- NOTE | 2022-11-05 17:16 | ED_ITS ---
HPI - SOB/Dyspnea <Bal Guy MD - Last Filed: 11/19/22 08:03> General Chief Complaint: Shortness of Breath/Dyspnea Stated Complaint: ca patient, abd and leg swelling Time Seen by Provider: 11/05/22 16:16 Source: patient Mode of arrival: Family Vehicle Limitations: no limitations History of Present Illness HPI Narrative: Patient brought here by . Has history of gastric cancer with ascites. Patient discharged from this hospital 3 days ago for ascites and had paracentesis done. Patient states has been doing well but today in the shower had sudden onset of dyspnea and dizziness. No chest pain. Patient states she has been swelling more since being discharged. Patient does see Oncology with [facility]. Dr. Collier. Is on chemotherapy. No fever chi lls. Abdominal discomfort is the same she is had with ascites. She is not had improvement with diuretics. Related Data Previous Rx's Medication Instructions Recorded hydroxyzine pamoate 25 mg capsule 25 mg PO Q6HR PRN Itching #30 caps 11/02/22 morphine 15 mg immediate release 30 mg PO Q4H PRN Pain, Severe 11/02/22 tablet (7-10) #60 tabs olanzapine 10 mg disintegrating 5 mg PO DAILY #30 tabs 11/02/22 tablet (Zyprexa Zydis) ondansetron 8 mg disintegrating 8 mg PO Q8H PRN nausea and 11/02/22 tablet vomiting #30 tabs pantoprazole 40 mg tablet,delayed 40 mg PO DAILY #30 tabs 11/02/22 release (Protonix) sennosides 8.6 mg-docusate sodium 2 tab-cap PO BID #60 caps 11/02/22 50 mg capsule (Senna Plus) hydrocortisone 1 % topical cream 1 applic topical TID PRN Itching 11/11/22 #100 grams hydroxyzine pamoate 25 mg capsule 25 mg PO Q4HR PRN Nausea #100 caps 11/11/22 lidocaine 5 % topical patch 1 ea topical BEDTIME #30 ea 11/11/22 methadone 10 mg tablet 10 mg PO Q8H #21 tabs 11/11/22 methadone 10 mg tablet 20 mg PO Q8H #42 tabs 11/11/22 scopolamine base 1 mg over 3 days 1 patch topical Q72H #10 ea 03/06/23 transdermal patch (Transderm-Scop) Allergies Allergy/AdvReac Type Severity Reaction Status Date / Time No Known Drug Allergies Allergy Verified 11/06/22 15:14 Review of Systems <Bal Guy MD - Last Filed: 11/19/22 08:03> Review of Systems Narrative: GENERAL: negative chills, fatigue, malaise, fever, sweats. HEENT: negative sinus pain, ear pain, sore throat RESPIRATORY: Positive dyspnea, negative cough CARDIOVASCULAR: negative chest pain, palpitations, positive peripheral edema GASTROINTESTINAL: negative nausea, vomiting, positive abdominal pain : negative dysuria, frequency, hematuria MUSCULOSKELETAL: negative muscle or bony pain SKIN: negative rash, skin lesions NEUROLOGIC: negative weakness, numbness ROS Unobtainable: All systems reviewed & are unremarkable except as noted in HPI and below Patient History <Bal Guy MD - Last Filed: 11/19/22 08:03> Medical History Healthy adult Family History Father Cancer Diabetes mellitus Grandmother Diabetes mellitus Father Cancer Aunt Cancer Social History household members: family and children Smoking Status: Former smoker Smoking Status: Former smoker tobacco type: vaping alcohol intake frequency: holidays/special occasions only Substance Use Type: does not use Exam <Bal Guy MD - Last Filed: 11/19/22 08:03> Narrative Exam Narrative: GENERAL: in no distress, not toxic not dyspneic HEAD: Normocephalic. EYES: Pupils equal round ENT: Mucous membranes moist. NECK: Trachea midline. CARDIOVASCULAR: Tachycardia with Regular rate and rhythm without murmurs RESPIRATORY: Clear to auscultation. Breath sounds equal bilaterally. No wheezes, rales, or rhonchi. GASTROINTESTINAL: Abdomen is distended. Mild diffuse tenderness but no peritoneal signs. No pain out of proportion to exam. Previous paracentesis site clean dry intact. No drainage. EXTREMITIES: No gross deformities. Extensive symmetric bilateral thigh and leg edema. NEURO: AOx4. SKIN: Warm and dry PSYCH: Not anxious, is cooperative Initial Vital Signs Initial Vital Signs: Vital Signs Temperature 97.5 F L 11/05/22 15:48 Pulse Rate 132 H 11/05/22 15:48 Respiratory Rate 26 H 11/05/22 15:48 Blood Pressure 119/72 11/05/22 15:48 Pulse Oximetry 100 11/05/22 15:48 Oxygen Delivery Method Room Air 11/05/22 15:48 <Charu Ko DO - Last Filed: 11/06/22 02:40> Initial Vital Signs Initial Vital Signs: Vital Signs Temperature 97.5 F L 11/05/22 15:48 Pulse Rate 132 H 11/05/22 15:48 Respiratory Rate 26 H 11/05/22 15:48 Blood Pressure 119/72 11/05/22 15:48 Pulse Oximetry 100 11/05/22 15:48 Oxygen Delivery Method Room Air 11/05/22 15:48 Course <Bal Guy MD - Last Filed: 11/19/22 08:03> Course Course Narrative: 6:[address] Ko, patient will likely need admission. CT chest is pending. Patient will need paracentesis well. Ultrasound is here and available for marking. Orders Ordered: Discontinued Medications Heparin Sodium (Porcine) (Heparin Flush (Cl/Picc/Mid-Line) 50 Unit/5 Ml Syringe) 50 unit IV PRN PRN PRN Reason: Flush Last Admin: 11/05/22 21:12 Dose: 50 unit Documented By: RICHARD Heparin Sodium (Porcine) (Heparin 500 Unit/5 Ml Port Flush) 500 unit IV PRN PRN PRN Reason: Flush Last Admin: 11/05/22 21:13 Dose: 500 unit Documented By: RICHARD Hydromorphone HCl (Hydromorphone 1 Mg Inj) 1 mg IV NOW ONE Stop: 11/05/22 17:48 Last Admin: 11/05/22 17:55 Dose: 1 mg Documented By: RB Hydromorphone HCl (Hydromorphone 1 Mg Inj) 1 mg IV NOW ONE Stop: 11/05/22 21:01 Last Admin: 11/05/22 21:12 Dose: 1 mg Documented By: RICHARD Metoclopramide HCl (Metoclopramide 10 Mg/2 Ml Inj) 10 mg IV NOW ONE Stop: 11/05/22 17:48 Last Admin: 11/05/22 17:56 Dose: 10 mg Documented By: RB Morphine Sulfate (Morphine 4 Mg/Ml Inj) 4 mg IV NOW ONE Stop: 11/05/22 16:17 Last Admin: 11/05/22 16:31 Dose: 4 mg Documented By: RB Ondansetron HCl (Ondansetron 4 Mg/2 Ml Inj) 4 mg IV NOW ONE Stop: 11/05/22 16:16 Last Admin: 11/05/22 16:31 Dose: 4 mg Documented By: RB Vital Signs Vital signs: Vital Signs - 8 hr 11/05/22 19:20 11/05/22 19:25 11/05/22 19:25 Pulse Rate 125 H 122 H Respiratory Rate 13 11 L Blood Pressure 118/77 Pulse Oximetry 97 97 11/05/22 19:30 11/05/22 19:30 11/05/22 19:35 Pulse Rate 125 H 128 H Respiratory Rate 26 H 24 Blood Pressure 128/83 Pulse Oximetry 98 99 11/05/22 19:35 11/05/22 19:40 11/05/22 19:40 Pulse Rate 125 H Respiratory Rate 24 Blood Pressure 125/79 119/77 Pulse Oximetry 99 11/05/22 19:45 11/05/22 19:45 11/05/22 19:50 Pulse Rate 125 H 121 H Respiratory Rate 24 25 H Blood Pressure 114/74 Pulse Oximetry 99 99 11/05/22 19:50 11/05/22 19:55 11/05/22 19:55 Pulse Rate 123 H Respiratory Rate 20 Blood Pressure 118/77 125/73 Pulse Oximetry 97 11/05/22 20:00 11/05/22 20:01 11/05/22 20:01 Pulse Rate 124 H 124 H Respiratory Rate 22 21 Blood Pressure 114/70 Pulse Oximetry 98 99 11/05/22 20:05 11/05/22 20:05 11/05/22 20:10 Pulse Rate 124 H Respiratory Rate 17 Blood Pressure 120/74 117/67 Pulse Oximetry 99 11/05/22 20:10 11/05/22 20:15 11/05/22 20:15 Pulse Rate 126 H 125 H Respiratory Rate 22 14 Blood Pressure 115/65 Pulse Oximetry 98 98 11/05/22 20:20 11/05/22 20:20 11/05/22 20:25 Pulse Rate 127 H Respiratory Rate 22 Blood Pressure 123/74 116/69 Pulse Oximetry 99 11/05/22 20:25 11/05/22 20:30 11/05/22 20:30 Pulse Rate 122 H 124 H Respiratory Rate 14 21 Blood Pressure 115/77 Pulse Oximetry 98 98 11/05/22 20:35 11/05/22 20:35 11/05/22 20:40 Pulse Rate 123 H Respiratory Rate 15 Blood Pressure 122/81 124/81 Pulse Oximetry 98 11/05/22 20:40 11/05/22 20:45 11/05/22 20:45 Pulse Rate 123 H 124 H Respiratory Rate 8 L 10 L Blood Pressure 126/78 Pulse Oximetry 97 96 11/05/22 20:50 11/05/22 20:50 11/05/22 20:55 Pulse Rate 125 H 126 H Respiratory Rate 9 L 12 Blood Pressure 127/77 Pulse Oximetry 96 98 11/05/22 20:55 11/05/22 21:00 11/05/22 21:00 Pulse Rate 125 H Respiratory Rate 10 L Blood Pressure 125/74 122/72 Pulse Oximetry 97 11/05/22 21:05 11/05/22 21:05 11/05/22 21:10 Pulse Rate 125 H Respiratory Rate 14 Blood Pressure 126/71 127/79 Pulse Oximetry 97 11/05/22 21:10 11/05/22 21:15 11/05/22 21:15 Pulse Rate 124 H 126 H Respiratory Rate 11 L 20 Blood Pressure 126/73 Pulse Oximetry 98 99 11/05/22 21:20 11/05/22 21:20 Pulse Rate 128 H Respiratory Rate 21 Blood Pressure 110/81 Pulse Oximetry 99 <Charu Ko, DO - Last Filed: 11/06/22 02:40> Orders Ordered: Discontinued Medications Heparin Sodium (Porcine) (Heparin Flush (Cl/Picc/Mid-Line) 50 Unit/5 Ml Syringe) 50 unit IV PRN PRN PRN Reason: Flush Last Admin: 11/05/22 21:12 Dose: 50 unit Documented By: RICHARD Heparin Sodium (Porcine) (Heparin 500 Unit/5 Ml Port Flush) 500 unit IV PRN PRN PRN Reason: Flush Last Admin: 11/05/22 21:13 Dose: 500 unit Documented By: RICHARD Hydromorphone HCl (Hydromorphone 1 Mg Inj) 1 mg IV NOW ONE Stop: 11/05/22 17:48 Last Admin: 11/05/22 17:55 Dose: 1 mg Documented By: RB Hydromorphone HCl (Hydromorphone 1 Mg Inj) 1 mg IV NOW ONE Stop: 11/05/22 21:01 Last Admin: 11/05/22 21:12 Dose: 1 mg Documented By: RICHARD Metoclopramide HCl (Metoclopramide 10 Mg/2 Ml Inj) 10 mg IV NOW ONE Stop: 11/05/22 17:48 Last Admin: 11/05/22 17:56 Dose: 10 mg Documented By: RB Morphine Sulfate (Morphine 4 Mg/Ml Inj) 4 mg IV NOW ONE Stop: 11/05/22 16:17 Last Admin: 11/05/22 16:31 Dose: 4 mg Documented By: RB Ondansetron HCl (Ondansetron 4 Mg/2 Ml Inj) 4 mg IV NOW ONE Stop: 11/05/22 16:16 Last Admin: 11/05/22 16:31 Dose: 4 mg Documented By: CEDRICK Vital Signs Vital signs: Vital Signs - 8 hr 11/05/22 19:20 11/05/22 19:25 11/05/22 19:25 Pulse Rate 125 H 122 H Respiratory Rate 13 11 L Blood Pressure 118/77 Pulse Oximetry 97 97 11/05/22 19:30 11/05/22 19:30 11/05/22 19:35 Pulse Rate 125 H 128 H Respiratory Rate 26 H 24 Blood Pressure 128/83 Pulse Oximetry 98 99 11/05/22 19:35 11/05/22 19:40 11/05/22 19:40 Pulse Rate 125 H Respiratory Rate 24 Blood Pressure 125/79 119/77 Pulse Oximetry 99 11/05/22 19:45 11/05/22 19:45 11/05/22 19:50 Pulse Rate 125 H 121 H Respiratory Rate 24 25 H Blood Pressure 114/74 Pulse Oximetry 99 99 11/05/22 19:50 11/05/22 19:55 11/05/22 19:55 Pulse Rate 123 H Respiratory Rate 20 Blood Pressure 118/77 125/73 Pulse Oximetry 97 11/05/22 20:00 11/05/22 20:01 11/05/22 20:01 Pulse Rate 124 H 124 H Respiratory Rate 22 21 Blood Pressure 114/70 Pulse Oximetry 98 99 11/05/22 20:05 11/05/22 20:05 11/05/22 20:10 Pulse Rate 124 H Respiratory Rate 17 Blood Pressure 120/74 117/67 Pulse Oximetry 99 11/05/22 20:10 11/05/22 20:15 11/05/22 20:15 Pulse Rate 126 H 125 H Respiratory Rate 22 14 Blood Pressure 115/65 Pulse Oximetry 98 98 11/05/22 20:20 11/05/22 20:20 11/05/22 20:25 Pulse Rate 127 H Respiratory Rate 22 Blood Pressure 123/74 116/69 Pulse Oximetry 99 11/05/22 20:25 11/05/22 20:30 11/05/22 20:30 Pulse Rate 122 H 124 H Respiratory Rate 14 21 Blood Pressure 115/77 Pulse Oximetry 98 98 11/05/22 20:35 11/05/22 20:35 11/05/22 20:40 Pulse Rate 123 H Respiratory Rate 15 Blood Pressure 122/81 124/81 Pulse Oximetry 98 11/05/22 20:40 11/05/22 20:45 11/05/22 20:45 Pulse Rate 123 H 124 H Respiratory Rate 8 L 10 L Blood Pressure 126/78 Pulse Oximetry 97 96 11/05/22 20:50 11/05/22 20:50 11/05/22 20:55 Pulse Rate 125 H 126 H Respiratory Rate 9 L 12 Blood Pressure 127/77 Pulse Oximetry 96 98 11/05/22 20:55 11/05/22 21:00 11/05/22 21:00 Pulse Rate 125 H Respiratory Rate 10 L Blood Pressure 125/74 122/72 Pulse Oximetry 97 11/05/22 21:05 11/05/22 21:05 11/05/22 21:10 Pulse Rate 125 H Respiratory Rate 14 Blood Pressure 126/71 127/79 Pulse Oximetry 97 11/05/22 21:10 11/05/22 21:15 11/05/22 21:15 Pulse Rate 124 H 126 H Respiratory Rate 11 L 20 Blood Pressure 126/73 Pulse Oximetry 98 99 11/05/22 21:20 11/05/22 21:20 Pulse Rate 128 H Respiratory Rate 21 Blood Pressure 110/81 Pulse Oximetry 99 MDM - SOB/Dyspnea <Bal Guy MD - Last Filed: 11/19/22 08:03> Lab Data 11/05/22 16:00 11/05/22 16:00 Labs: Lab Results 11/05/22 11/05/22 11/05/22 Range/Units 16:00 16:00 16:00 WBC 6.6 (4.5-11.0) X10^3/uL RBC 3.58 L (4.0-5.2) X10^6/uL Hgb 8.6 L (12.0-16.0) g/dL Hct 26.5 L (36-46) % MCV 74.0 L (80-100) fL MCH 24.1 L (26-34) PG MCHC 32.5 (30-36) % RDW 16.0 H (11.6-14.8) % Plt Count 320 (150-400) X10^3/uL Neut % (Auto) 92.9 H (50-75) % Lymph % (Auto) 4.8 L (25-40) % [place] % (Auto) 2.0 L (3-14) % Eos % (Auto) 0.1 L (2-4) % Baso % (Auto) 0.2 (0-2) % Neut # (Auto) 6100 (2787-8397) /uL Lymph # (Auto) 300 L (1761-7720) /uL [place] # (Auto) 100 (0-900) /uL Eos # (Auto) 0 (0-450) /uL Baso # (Auto) 0 (0-100) /uL PT 14.1 H (10.1-12.7) SECONDS INR 1.2 (0.9-1.3) Sodium 130 L (137-145) mmol/L Potassium 4.0 (3.4-5.1) mmol/L Chloride 97 L (98-107) mmol/L Carbon Dioxide 27 (22-32) mmol/L BUN 17 (7-17) mg/dL Creatinine 0.55 (0.52-1.04) mg/dL Estimated GFR > 60 (>60) mL/min BUN/Creatinine Ratio 30.9 H (6-22) Glucose 108 H (70-100) mg/dL Lactate (0.7-2.1) mmol/L Calcium 7.9 L (8.4-10.2) mg/dL Total Bilirubin 1.3 (0.2-1.3) mg/dL AST 25 (14-36) IU/L ALT 18 (<35) IU/L Alkaline Phosphatase 172 H (38-126) U/L Troponin I < 0.012 (0.01-0.034) ng/mL NT-Pro-B Natriuret Pep 352 H (<125) pg/mL Total Protein 6.0 L (6.3-8.2) g/dL Albumin 2.7 L (3.5-5.0) g/dL Globulin 3.3 (1.7-4.1) g/dL Albumin/Globulin Ratio 0.8 L (1.0-2.8) SARS-CoV-2 (PCR) (Negative) 11/05/22 11/05/22 Range/Units 16:00 16:15 WBC (4.5-11.0) X10^3/uL RBC (4.0-5.2) X10^6/uL Hgb (12.0-16.0) g/dL Hct (36-46) % MCV (80-100) fL MCH (26-34) PG MCHC (30-36) % RDW (11.6-14.8) % Plt Count (150-400) X10^3/uL Neut % (Auto) (50-75) % Lymph % (Auto) (25-40) % [place] % (Auto) (3-14) % Eos % (Auto) (2-4) % Baso % (Auto) (0-2) % Neut # (Auto) (9587-3337) /uL Lymph # (Auto) (7446-5876) /uL [place] # (Auto) (0-900) /uL Eos # (Auto) (0-450) /uL Baso # (Auto) (0-100) /uL PT (10.1-12.7) SECONDS INR (0.9-1.3) Sodium (137-145) mmol/L Potassium (3.4-5.1) mmol/L Chloride (98-107) mmol/L Carbon Dioxide (22-32) mmol/L BUN (7-17) mg/dL Creatinine (0.52-1.04) mg/dL Estimated GFR (>60) mL/min BUN/Creatinine Ratio (6-22) Glucose (70-100) mg/dL Lactate 1.3 (0.7-2.1) mmol/L Calcium (8.4-10.2) mg/dL Total Bilirubin (0.2-1.3) mg/dL AST (14-36) IU/L ALT (<35) IU/L Alkaline Phosphatase (38-126) U/L Troponin I (0.01-0.034) ng/mL NT-Pro-B Natriuret Pep (<125) pg/mL Total Protein (6.3-8.2) g/dL Albumin (3.5-5.0) g/dL Globulin (1.7-4.1) g/dL Albumin/Globulin Ratio (1.0-2.8) SARS-CoV-2 (PCR) Negative (Negative) Imaging Data Chest x-ray: Radiologist's Impression: [address] [address] XRay Report Signed Patient: Niecy Laguerre MR#: [id number] : 1995 Acct:[id number] Age/Sex: 27 / F Date of Service: 11/05/22 Loc: ED Accession Number: [id number] ?? Procedure: XR chest 1V Ordering Provider: Bal Guy MD PROCEDURE:? XR CHEST 1V ? INDICATIONS:? Shortness of breath ? TECHNIQUE:? One view of the chest was acquired.? ? COMPARISON:? [facility], , XR CHEST 1V, 10/26/2022, 14:48. ? FINDINGS:? ? Surgical changes and devices:? None.? ? Lungs and pleura:? Lungs are clear.? No pleural effusions or pneumothorax.? ? Mediastinum:? Mediastinal contours appear normal.? Heart size is normal.? ? Bones and chest wall:? No suspicious bony lesions.? Overlying soft tissues appear unremarkable.? ? IMPRESSION:? Stable radiographic evaluation of the chest without acute cardiopulmonary abnormalities or focal airspace disease. ? Dictated by: Michael Logan M.D. on 11/05/2022 at 16:16 ? ? Approved by: Michael Logan M.D. on 11/05/2022 at 16:16 ? MDM Narrative Medical decision making narrative: Patient brought here by . Has history of gastric cancer with ascites. Patient discharged from this hospital 3 days ago for ascites and had paracentesis done. Patient states has been doing well but today in the shower had sudden onset of dyspnea and dizziness. No chest pain. Patient states she has been swelling more since being discharged. Patient does see Oncology with [facility]. Dr. Collier. Is on chemotherapy. No fever chills. Abdominal discomfort is the same she is had with ascites. She is not had improvement with diuretics. After history and exam CBC CMP PT PTT ultrasound abdomen have been ordered MDM CC: Shortness of breath Complicating co-morbidities: Gastric cancer/metastatic Data collected from: Patient and Medical records reviewed: Discharge summary from 3 days ago reviewed Differential considered: Includes but not limited to pulmonary embol ism/pneumonia/fluid overload/ascites Exam documented above, pertinent findings include: Clear lung sounds/distended abdomen with ascites Lab Test results independently reviewed as above. Pertinent findings: White count 6.6 hemoglobin 8.6 hematocrit 26.5 platelets 320, INR 1.2 sodium 130 potassium 4.0 creatinine 0.55 lactic acid 1.3 AST 25 ALT 18 BNP 352 troponin less than 0.012 albumin 2.7 Independently reviewed EKG as above sinus tachycardia rate 123 otherwise normal EKG no ST elevation or depression Imaging studies independently reviewed: Chest x-ray no acute process Consultations: Treatments: Morphine and Zofran Re-evaluations: Discussion: Diagnosis: <Charu Ko DO - Last Filed: 11/06/22 02:40> Lab Data Labs: Lab Results 11/05/22 11/05/22 11/05/22 Range/Units 16:00 16:00 16:00 WBC 6.6 (4.5-11.0) X10^3/uL RBC 3.58 L (4.0-5.2) X10^6/uL Hgb 8.6 L (12.0-16.0) g/dL Hct 26.5 L (36-46) % MCV 74.0 L (80-100) fL MCH 24.1 L (26-34) PG MCHC 32.5 (30-36) % RDW 16.0 H (11.6-14.8) % Plt Count 320 (150-400) X10^3/uL Neut % (Auto) 92.9 H (50-75) % Lymph % (Auto) 4.8 L (25-40) % [place] % (Auto) 2.0 L (3-14) % Eos % (Auto) 0.1 L (2-4) % Baso % (Auto) 0.2 (0-2) % Neut # (Auto) 6100 (2977-4121) /uL Lymph # (Auto) 300 L (0044-6694) /uL [place] # (Auto) 100 (0-900) /uL Eos # (Auto) 0 (0-450) /uL Baso # (Auto) 0 (0-100) /uL PT 14.1 H (10.1-12.7) SECONDS INR 1.2 (0.9-1.3) Sodium 130 L (137-145) mmol/L Potassium 4.0 (3.4-5.1) mmol/L Chloride 97 L (98-107) mmol/L Carbon Dioxide 27 (22-32) mmol/L BUN 17 (7-17) mg/dL Creatinine 0.55 (0.52-1.04) mg/dL Estimated GFR > 60 (>60) mL/min BUN/Creatinine Ratio 30.9 H (6-22) Glucose 108 H (70-100) mg/dL Lactate (0.7-2.1) mmol/L Calcium 7.9 L (8.4-10.2) mg/dL Total Bilirubin 1.3 (0.2-1.3) mg/dL AST 25 (14-36) IU/L ALT 18 (<35) IU/L Alkaline Phosphatase 172 H (38-126) U/L Troponin I < 0.012 (0.01-0.034) ng/mL NT-Pro-B Natriuret Pep 352 H (<125) pg/mL Total Protein 6.0 L (6.3-8.2) g/dL Albumin 2.7 L (3.5-5.0) g/dL Globulin 3.3 (1.7-4.1) g/dL Albumin/Globulin Ratio 0.8 L (1.0-2.8) SARS-CoV-2 (PCR) (Negative) 11/05/22 11/05/22 Range/Units 16:00 16:15 WBC (4.5-11.0) X10^3/uL RBC (4.0-5.2) X10^6/uL Hgb (12.0-16.0) g/dL Hct (36-46) % MCV (80-100) fL MCH (26-34) PG MCHC (30-36) % RDW (11.6-14.8) % Plt Count (150-400) X10^3/uL Neut % (Auto) (50-75) % Lymph % (Auto) (25-40) % [place] % (Auto) (3-14) % Eos % (Auto) (2-4) % Baso % (Auto) (0-2) % Neut # (Auto) (8353-2955) /uL Lymph # (Auto) (0862-8233) /uL [place] # (Auto) (0-900) /uL Eos # (Auto) (0-450) /uL Baso # (Auto) (0-100) /uL PT (10.1-12.7) SECONDS INR (0.9-1.3) Sodium (137-145) mmol/L Potassium (3.4-5.1) mmol/L Chloride (98-107) mmol/L Carbon Dioxide (22-32) mmol/L BUN (7-17) mg/dL Creatinine (0.52-1.04) mg/dL Estimated GFR (>60) mL/min BUN/Creatinine Ratio (6-22) Glucose (70-100) mg/dL Lactate 1.3 (0.7-2.1) mmol/L Calcium (8.4-10.2) mg/dL Total Bilirubin (0.2-1.3) mg/dL AST (14-36) IU/L ALT (<35) IU/L Alkaline Phosphatase (38-126) U/L Troponin I (0.01-0.034) ng/mL NT-Pro-B Natriuret Pep (<125) pg/mL Total Protein (6.3-8.2) g/dL Albumin (3.5-5.0) g/dL Globulin (1.7-4.1) g/dL Albumin/Globulin Ratio (1.0-2.8) SARS-CoV-2 (PCR) Negative (Negative) MDM Narrative Medical decision making narrative: Patient brought here by . Has history of gastric cancer with ascites. Patient discharged from this hospital 3 days ago for ascites and had paracentesis done. Patient states has been doing well but today in the shower had sudden onset of dyspnea and dizziness. No chest pain. Patient states she has been swelling more since being discharged. Patient does see Oncology with [facility]. Dr. Collier. Is on chemotherapy. No fever chills. Abdominal discomfort is the same she is had with ascites. She is not had improvement with diuretics. After history and exam CBC CMP PT PTT ultrasound abdomen have been ordered MDM CC: Shortness of breath Complicating co-morbidities: Gastric cancer/metastatic Data collected from: Patient and Medical records reviewed: Discharge summary from 3 days ago reviewed Differential considered: Includes but not limited to pulmonary embolism/pneumonia/fluid overload/ascites Exam documented above, pertinent findings include: Clear lung sounds/distended abdomen with ascites Lab Test results independently reviewed as above. Pertinent findings: White count 6.6 hemoglobin 8.6 hematocrit 26.5 platelets 320, INR 1.2 sodium 130 potassium 4.0 creatinine 0.55 lactic acid 1.3 AST 25 ALT 18 BNP 352 troponin less than 0.012 albumin 2.7 Independently reviewed EKG as above sinus tachycardia rate 123 otherwise normal EKG no ST elevation or depression Imaging studies independently reviewed: Chest x-ray no acute process Consultations: Treatments: Morphine and Zofran Re-evaluations: Discussion: Diagnosis: Patient signed out to me by Dr. Ko seen evaluated patient myself. 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 CT angio today was negative for pulmonary embolism. sHe does have continued ongoing abdominal ascites. Ultrasound was done it does show moderate ascites however not a good pocket to do a paracentesis for. She was started on furosemide yesterday she is only taken 1 dose. She reports that she is following low-salt diet. At this time I really do not see indication for repeat admission. She is followed closely with Oncology. No significant anemia or electrolyte abnormality. Persistently tachycardic which she was for most of her stay in the hospital. PICC line was placed port remains accessed. She will be getting chemotherapy and TPN simultaneously and they are not compatible. Recommend that she take 40 mg Lasix tomorrow and resume 20 mg daily. Also recommend that she have outpatient paracentesis scheduled or catheter placed Discharge Plan Departure Patient Disposition: Home Clinical Impression: Gastric adenocarcinoma, Ascites, malignant Instructions: DI for Ascites Activity Restrictions/Additional Instructions: *You have been diagnosed with ascites *What to do: At this time there is no reason to keep you in the hospital. Please talk to Oncology. You may need some sort of catheter or scheduled paracentesis. Please call tomorrow. Please continue to follow low-salt diet *Continue to take medications as directed Furosemide 40 mg once a day for 2 days then resume 20 mg once daily as prescribed *Follow up with your primary care provider in 2-3 days or call [phone] *Return to ER if you should have increased abdominal pain swelling shortness of breath [or] any new, worsening or concerning symptoms Prescriptions: No Action olanzapine [Zyprexa Zydis] 10 mg Tablet,Disintegrating 5 mg PO DAILY Qty: 30 0RF morphine 15 mg Tablet 30 mg PO Q4H PRN (Reason: Pain, Severe (7-10)) Qty: 60 0RF hydroxyzine pamoate 25 mg Capsule 25 mg PO Q6HR PRN (Reason: Itching) Qty: 30 0RF pantoprazole [Protonix] 40 mg tablet,delayed release (DR/EC) 40 mg PO DAILY Qty: 30 0RF ondansetron 8 mg tablet,disintegrating 8 mg PO Q8H PRN (Reason: nausea and vomiting) Qty: 30 0RF Senna Plus 8.6-50 mg capsule 2 tab-cap PO BID Qty: 60 0RF methadone 10 mg Tablet 10 mg PO Q8H Qty: 21 0RF hydrocortisone 1 % Cream 1 applic topical TID PRN (Reason: Itching) Qty: 100 0RF lidocaine 5 % Adhesive Patch,Medicated 1 ea topical BEDTIME Qty: 30 0RF hydroxyzine pamoate 25 mg Capsule 25 mg PO Q4HR PRN (Reason: Nausea) Qty: 100 0RF methadone 10 mg Tablet 20 mg PO Q8H Qty: 42 0RF scopolamine base [Transderm-Scop] 1 mg over 3 days Patch 3 Day 1 patch topical Q72H Qty: 10 0RF Referrals: Yaneli Brewer DO [Primary Care Provider] - Stand Alone Forms: Patient Portal/API
--- NOTE | 2022-11-05 17:44 | DI.CT.S_ITS ---
PROCEDURE: CT ANGIO CHEST PE PROTOCOL INDICATIONS: tachycardia, h/o cancer, sob TECHNIQUE: After the administration of intravenous contrast, 2 mm thick sections acquired from the pulmonary apices to the posterior costophrenic angles. 3-dimensional maximum intensity projection (MIP) coronal and sagittal reformats were then acquired through the thorax. For radiation dose reduction, the following was used: automated exposure control, adjustment of mA and/or kV according to patient size. COMPARISON: [facility], CT, CT ANGIO CHEST PE PROTOCOL, 10/23/2022, 22:22. FINDINGS: Image quality: Excellent. Pulmonary arteries: Pulmonary arteries are normal in size, and demonstrate no intraluminal filling defects to suggest central pulmonary embolism. Lungs and pleura: There is interval significantly improved right upper lung field aeration with a few small residual patchy ground-glass opacities seen scattered in right upper lobe suggestive of resolving infiltrates. No new areas of abnormal airspace opacity is seen. Small right pleural effusion is seen. No pneumothorax. Central and peripheral airways are patent. Mediastinum: Heart size is normal, without pericardial effusion. No mediastinal or hilar adenopathy. Thoracic aorta is normal in caliber and enhancement. Esophagus is normal in caliber, without hiatal hernia. Bones and chest wall: Right chest wall Port-A-Cath tip is in SVC. Adjacent small amount of subcutaneous emphysema is again seen and unchanged. No suspicious bony lesions. No acute vertebral body compression fracture. Thyroid gland is within normal limits. No axillary or supraclavicular adenopathy. Abdomen: Large amount of ascites fluid is again seen in visualized upper abdomen. No gross peritoneal free air. IMPRESSION: 1. No evidence of pulmonary emboli. No thoracic aortic aneurysm or gross dissection. 2. Interval significant improvement in right lung aeration with near complete resolution of previously noted extensive right upper lobe infiltrates. No new area of abnormal airspace opacities. Small right pleural effusion. No pneumothorax. 3. No gross mediastinal or hilar lymphadenopathy by size criteria. No abnormal fluid distension of esophageal lumen is seen. 4. Large amount of ascites fluid unchanged from prior study. Dictated by: Mando Moctezuma M.D. on 11/05/2022 at 17:55 Approved by: Mando Moctezuma M.D. on 11/05/2022 at 17:59
[2022-11-05] MEDS: HYDROMORPHONE 1 MG INJ IV ×2 (17:55→21:12)
[2022-11-05] MEDS: METOCLOPRAMIDE 10 MG/2 ML INJ IV (17:56)
== END 2022-11-05 21:25 | disposition home or self-care (01) ==
PROVIDERS: Emergency Medicine; Emergency Provider Emergency Medicine; PCP Family Medicine
DX: C16.9 Malignant neoplasm of stomach, unspecified (principal); R18.0 Malignant ascites; R10.9 Unspecified abdominal pain; Z20.822 Contact with and (suspected) exposure to COVID-19
CPT/HCPCS: 36415; 71045; 71275; 76705; 80053; 83605; 83880; 84484; 85025; 85610; 87635; 93005; 96374; 96375; 96376; 99284; C9803; J1170; J1642; J2270; J2405; J2765

== ENCOUNTER 2022-11-06 15:03 | Inpatient (IN) | payer OTHER, MEDICAID, SELFPAY ==
[2022-10-17 14:11] VITALS: BMI 26.7
[2022-11-06 15:14] VITALS: BP 160/65; PULSE 124; RESP 20; TEMP 36.7; O2SAT 100; BMI 29.9
--- NOTE | 2022-11-06 15:29 | ED.ABDPAIN ---
HPI - Abdominal Pain <Ken Lamb MD - Last Filed: 12/11/22 19:53> General Chief Complaint: Abdominal Pain Stated Complaint: uncontrolled abd pain, ca pt, difficulty breathing Time Seen by Provider: 11/06/22 15:28 Source: patient and family Mode of arrival: Ambulatory History of Present Illness HPI narrative: 27-year-old female was recently diagnosed with metastatic gastric cancer (pathology revealing invasive poorly differentiated adenocarcinoma) with associated peritoneal carcinomatosis, omental caking, and malignant ascites. She had an extensive admission last month with surgical consultation, oncology oversight, and paracentesis x2. I discussed her case with Dr. Gomez, hospitalist. She has UGI issues with nausea vomiting, and pain control. She is not absorbing pain medications well. She was discharged 11/02/2022. Abdominal CT was performed during hospitalization. She returned here yesterday. She claims dyspnea. Chest CT showed no evidence of PE. Abdominal ultrasound did not reveal a fluid collection compatible with paracentesis. She is currently taking methadone and morphine for pain. She takes Zofran for nausea. She is no fever or chills. She is no chest pain or dyspnea at this time. She complains of persistent abdominal pain with frequent nausea vomiting. She is urine output. She is having bowel movements. The recent CT showed peritoneal carcinomatosis, along with ascites which is apparently not as significant at this time. There was dilated loops of bowel. There was right-sided hydronephrosis, likely impacted by a obstructing lesion. At this time her biggest issue is pain and nausea vomiting. Related Data Previous Rx's Medication Instructions Recorded hydroxyzine pamoate 25 mg capsule 25 mg PO Q6HR PRN Itching #30 caps 11/02/22 morphine 15 mg immediate release 30 mg PO Q4H PRN Pain, Severe 11/02/22 tablet (7-10) #60 tabs olanzapine 10 mg disintegrating 5 mg PO DAILY #30 tabs 11/02/22 tablet (Zyprexa Zydis) ondansetron 8 mg disintegrating 8 mg PO Q8H PRN nausea and 11/02/22 tablet vomiting #30 tabs pantoprazole 40 mg tablet,delayed 40 mg PO DAILY #30 tabs 11/02/22 release (Protonix) sennosides 8.6 mg-docusate sodium 2 tab-cap PO BID #60 caps 11/02/22 50 mg capsule (Senna Plus) hydrocortisone 1 % topical cream 1 applic topical TID PRN Itching 11/11/22 #100 grams hydroxyzine pamoate 25 mg capsule 25 mg PO Q4HR PRN Nausea #100 caps 11/11/22 lidocaine 5 % topical patch 1 ea topical BEDTIME #30 ea 11/11/22 methadone 10 mg tablet 10 mg PO Q8H #21 tabs 11/11/22 methadone 10 mg tablet 20 mg PO Q8H #42 tabs 11/11/22 scopolamine base 1 mg over 3 days 1 patch topical Q72H #10 ea 11/11/22 transdermal patch (Transderm-Scop) amoxicillin 875 mg-potassium 1 tab PO BID #20 tabs 11/22/22 clavulanate 125 mg tablet methadone 10 mg tablet 10 mg PO TID #10 tabs 11/22/22 methadone 10 mg tablet 30 mg PO TID PRN Pain (Scale Score 11/27/22 1-3) #270 tabs morphine 30 mg immediate release 30 mg PO Q6H PRN pain #120 tabs 11/27/22 tablet Allergies Allergy/AdvReac Type Severity Reaction Status Date / Time No Known Drug Allergies Allergy Verified 11/06/22 15:14 Review of Systems <Ken Lamb MD - Last Filed: 12/11/22 19:53> Constitutional Constitutional: Denies anorexia, Reports body ache(s), Denies chills, Reports fatigue, Denies fever(s) and Denies weakness Eyes Eyes: Denies change in vision ENT Ears, Nose, Mouth, and Throat: Denies vertigo, Denies sinus pain, Denies sinus pressure and Denies sore throat Cardiovascular Cardiovascular: Denies chest pain, Reports pedal edema, Denies irregular heart rhythm and Reports dyspnea on exertion Respiratory Respiratory: Denies cough and Reports dyspnea on exertion Gastrointestinal Gastrointestinal: Reports as per HPI Genitourinary Genitourinary: Denies dysuria Musculoskeletal Musculoskeletal: Denies back pain and Reports deformity Comments: Lower extremity edema. Integumentary/Breasts Skin/Breast: Denies rash Neurologic Neurologic: Denies confusion, Denies vertigo and Denies weakness Psychiatric Psychiatric: Reports anxiety and Denies confusion Endocrine Endocrine: Reports fatigue Hematologic/Lymphatic On Anticoagulants: No Patient History <Ken Lamb MD - Last Filed: 12/11/22 19:53> Medical History Healthy adult Family History Father Cancer Diabetes mellitus Grandmother Diabetes mellitus Father Cancer Aunt Cancer Social History household members: family and children Smoking Status: Former smoker Smoking Status: Former smoker tobacco type: vaping alcohol intake frequency: holidays/special occasions only Substance Use Type: does not use Exam <Ken Lamb MD - Last Filed: 12/11/22 19:53> Initial Vital Signs Initial Vital Signs: Vital Signs Temperature 98.1 F 11/06/22 15:14 Pulse Rate 124 H 11/06/22 15:14 Respiratory Rate 20 11/06/22 15:14 Blood Pressure 160/65 H 11/06/22 15:14 Pulse Oximetry 100 11/06/22 15:14 Oxygen Delivery Method Room Air 11/06/22 15:14 Const General: cooperative, frail appearing and other (She appears uncomfortable) HENMT Head: normocephalic and occipital foramen tenderness Mouth: other (Dry oral mucosa) Neck Neck: No JVD Thyroid: thyroid normal Chest Chest: normal inspection of the chest Resp Effort & Inspection: normal respiratory effort Auscultation: clear to auscultation bilaterally Cardio Rate: regular rate Rhythm: regular rhythm Heart Sounds: S1 normal, S2 normal and no murmurs GI Other: Distended abdomen. Generalized tenderness. Guarding without rebound. Bowel sounds are present. Back/Spine/Pelvis Back: No CVA tenderness Skin General: no rashes or lesions noted Neuro General: patient alert and patient oriented x3 Extrem Other: 2+ bilateral lower extremity edema. No calf tenderness. Psych Appearance: grossly normal <Arnold James DO - Last Filed: 11/07/22 17:40> Initial Vital Signs Initial Vital Signs: Vital Signs Temperature 98.1 F 11/06/22 15:14 Pulse Rate 124 H 11/06/22 15:14 Respiratory Rate 20 11/06/22 15:14 Blood Pressure 160/65 H 11/06/22 15:14 Pulse Oximetry 100 11/06/22 15:14 Oxygen Delivery Method Room Air 11/06/22 15:14 Course <Ken Lamb MD - Last Filed: 12/11/22 19:53> Course Course Narrative: 11/06/22 @ 16:55. I discussed this case with Dr. Gomez, hospitalist. He is very familiar with the patient. Dr. Smith, radiology did an ultrasound on the patient. He felt that there was only a small amount of abdominal free fluid present and it was unsafe for therapeutic paracentesis. Dr. Gomez, hospitalist, is very familiar with this patient. She tends to have significant relief with her nausea vomiting falling paracentesis. He intends to evaluate the patient himself. He did ultrasound the patient, and is in agreement. There is not enough fluid he would not do a paracentesis either. Dr. Amin is the opinion that the patient would benefit from transfer to a higher level care. However, the intent would be to repeat the CT for guidance of her potential needs. The case is signed out to Dr. James at change of shift. Orders Ordered: Discontinued Medications Diphenhydramine HCl (Diphenhydramine 50 Mg/Ml Vial) 25 mg IV Q4HR PRN PRN Reason: Itching Last Admin: 11/11/22 00:27 Dose: 25 mg Documented By: Admin: 11/09/22 19:39 Dose: 25 mg Documented By: Admin: 11/09/22 08:54 Dose: 25 mg Documented By: Admin: 11/08/22 22:41 Dose: 25 mg Documented By: Admin: 11/08/22 17:57 Dose: 25 mg Documented By: Enoxaparin Sodium (Enoxaparin 40 Mg/0.4 Ml Syringe) 40 mg SUBCUT DAILY [facility] Last Admin: 11/11/22 09:28 Dose: Not Given Documented By: Admin: 11/10/22 09:33 Dose: 40 mg Documented By: Admin: 11/09/22 08:44 Dose: 40 mg Documented By: Admin: 11/08/22 08:40 Dose: 40 mg Documented By: Admin: 11/07/22 08:40 Dose: 40 mg Documented By: DIANA Fentanyl (Fentanyl 100 Mcg/2 Ml Inj) 50 mcg IV Q30MIN PRN PRN Reason: Pain, Severe (7-10) Last Admin: 11/06/22 16:46 Dose: 50 mcg Documented By: Admin: 11/06/22 16:10 Dose: 50 mcg Documented By: RICK Fentanyl (Fentanyl 100 Mcg/2 Ml Inj) 50 mcg IV Q15MIN PRN PRN Reason: Pain, Severe (7-10) Last Admin: 11/06/22 23:35 Dose: 50 mcg Documented By: Admin: 11/06/22 21:39 Dose: 50 mcg Documented By: Admin: 11/06/22 20:17 Dose: 50 mcg Documented By: Admin: 11/06/22 19:24 Dose: 50 mcg Documented By: Admin: 11/06/22 17:51 Dose: 50 mcg Documented By: Admin: 11/06/22 17:22 Dose: 50 mcg Documented By: ZEINAB Fentanyl (Fentanyl 50 Mcg/Patch) 50 mcg TOP Q72H [facility] Stop: 11/10/22 16:00 Last Admin: 11/08/22 08:41 Dose: 50 mcg Documented By: Fentanyl (Fentanyl 50 Mcg/Patch) 50 mcg TOP Q48H [facility] Last Admin: 11/10/22 16:53 Dose: 50 mcg Documented By: MELISA Heparin Sodium (Porcine) (Heparin Flush (Cl/Picc/Mid-Line) 50 Unit/5 Ml Syringe) 50 unit IV PRN PRN PRN Reason: Flush Heparin Sodium (Porcine) (Heparin 500 Unit/5 Ml Port Flush) 500 unit IV PRN PRN PRN Reason: Flush Hydrocortisone (Hydrocortisone 1% Cream 28 Gm) 1 applic TOP TID PRN PRN Reason: Itching Last Admin: 11/11/22 09:31 Dose: 1 applic Documented By: ELVIA Hydromorphone HCl (Hydromorphone 1 Mg Inj) 1 mg IV NOW ONE Stop: 11/06/22 15:31 Last Admin: 11/06/22 15:47 Dose: 1 mg Documented By: RICK Hydromorphone HCl (Hydromorphone 0.5 Mg Inj) 1 mg IV Q2H PRN PRN Reason: Pain, Severe (7-10) Last Admin: 11/08/22 14:01 Dose: 1 mg Documented By: Admin: 11/08/22 11:55 Dose: 1 mg Documented By: Admin: 11/08/22 07:55 Dose: 1 mg Documented By: Admin: 11/08/22 05:22 Dose: 1 mg Documented By: Admin: 11/08/22 00:54 Dose: 1 mg Documented By: Admin: 11/07/22 22:46 Dose: 1 mg Documented By: Admin: 11/07/22 21:14 Dose: 1 mg Documented By: Admin: 11/07/22 15:25 Dose: 1 mg Documented By: Admin: 11/07/22 10:12 Dose: 1 mg Documented By: Admin: 11/07/22 08:13 Dose: 1 mg Documented By: Admin: 11/07/22 04:26 Dose: 1 mg Documented By: Admin: 11/07/22 01:17 Dose: 1 mg Documented By: TOBY Hydromorphone HCl (Hydromorphone 1 Mg Inj) 1 mg IV Q1H PRN PRN Reason: Pain, Severe (7-10) Last Admin: 11/10/22 13:07 Dose: 1 mg Documented By: Admin: 11/10/22 02:06 Dose: 1 mg Documented By: Admin: 11/09/22 11:49 Dose: 1 mg Documented By: Admin: 11/09/22 07:02 Dose: 1 mg Documented By: Admin: 11/09/22 00:13 Dose: 1 mg Documented By: Admin: 11/08/22 23:14 Dose: 1 mg Documented By: Admin: 11/08/22 18:27 Dose: 1 mg Documented By: Hydroxyzine Pamoate (Hydroxyzine Pamoate 25 Mg Capsule) 25 mg PO Q4HR PRN PRN Reason: Nausea Last Admin: 11/11/22 13:07 Dose: 25 mg Documented By: Admin: 11/10/22 18:07 Dose: 25 mg Documented By: Admin: 11/10/22 06:29 Dose: 25 mg Documented By: Admin: 11/10/22 00:20 Dose: 25 mg Documented By: Admin: 11/09/22 18:26 Dose: 25 mg Documented By: Admin: 11/09/22 08:54 Dose: 25 mg Documented By: Admin: 11/08/22 23:58 Dose: 25 mg Documented By: NARCISA Sodium Chloride (Normal Saline 0.9%) 1,000 mls @ 125 mls/hr IV BOLUS ONE Stop: 11/06/22 23:29 Last Infusion: 11/06/22 23:50 Dose: 0 mls/hr Documented By: Admin: 11/06/22 15:47 Dose: 125 mls/hr Documented By: RICK Chromium/Copper/Manganese/Seleni/Zn 1 ml/ Potassium Chloride 60 meq/ Amino Acids/Electrolytes 1,031 mls @ 64.438 mls/hr IV 1800 [facility] Stop: 11/08/22 09:59 Last Infusion: 11/08/22 10:00 Dose: 0 mls/hr Documented By: Co-signed By: JOSE Admin: 11/07/22 18:00 Dose: 64.438 mls/hr Documented By: DIANA Co-signed By: JOSE Fat Emulsion Intravenous (Clinolipid 20%) 50 gm in 250 mls @ 25 mls/hr IV MoWeFr@1800 [facility] Fat Emulsion Intravenous (Clinolipid 20%) 50 gm in 250 mls @ 25 mls/hr IV MoWeFr@1800 [facility] Last Infusion: 11/09/22 04:35 Dose: 0 mls/hr Documented By: Admin: 11/08/22 18:35 Dose: 25 mls/hr Documented By: Multivitamins 5 ml/ Chromium/Copper/Manganese/Seleni/Zn 1 ml/ Potassium Chloride 60 meq/Amino Acids/Electrolytes 1,536 mls @ 96 mls/hr IV 1800 [facility] Stop: 11/09/22 09:59 Last Admin: 11/08/22 18:35 Dose: 96 mls/hr Documented By: Co-signed By: JOSE Sodium Chloride 40 meq/Potassium Chloride 40 meq/Multivitamins 5 ml/ Chromium/Copper/Manganese/Seleni/Zn 1 ml/ Amino Acids/Electrolytes 1,536 mls @ 96 mls/hr IV 1800 [facility] Stop: 11/10/22 09:59 Last Admin: 11/09/22 18:14 Dose: 96 mls/hr Documented By: Co-signed By: MELISA Sodium Chloride 80 meq/Potassium Chloride 20 meq/Multivitamins 5 ml/ Chromium/Copper/Manganese/Seleni/Zn 1 ml/ Amino Acids/Electrolytes 1,536 mls @ 96 mls/hr IV 1800 [facility] Stop: 11/11/22 09:59 Last Admin: 11/10/22 17:44 Dose: 96 mls/hr Documented By: MELISA Co-signed By: GENOVEVA Sodium Chloride 80 meq/Potassium Chloride 20 meq/Multivitamins 5 ml/ Chromium/Copper/Manganese/Seleni/Zn 1 ml/ Amino Acids/Electrolytes 1,536 mls @ 96 mls/hr IV 1800 [facility] Stop: 11/12/22 09:59 Lidocaine (Lidocaine Patch 1 Each Adh..Patch) 1 each TOP DAILY [facility] Last Admin: 11/11/22 08:07 Dose: 1 each Documented By: Admin: 11/10/22 09:33 Dose: 1 each Documented By: Admin: 11/09/22 08:45 Dose: 1 each Documented By: Admin: 11/08/22 16:19 Dose: 1 each Documented By: Lidocaine (Remove Lidocaine Patch) 1 each TOP BEDTIME [facility] Last Admin: 11/10/22 22:06 Dose: Not Given Documented By: Admin: 11/09/22 21:07 Dose: 1 each Documented By: Admin: 11/08/22 21:14 Dose: 1 each Documented By: NARCISA Lorazepam (Lorazepam 2 Mg/Ml Inj) 1 mg IV NOW ONE Stop: 11/06/22 16:41 Last Admin: 11/06/22 16:45 Dose: 1 mg Documented By: RICK Lorazepam (Lorazepam 2 Mg/Ml Inj) 1 mg IV NOW ONE Stop: 11/06/22 19:27 Last Admin: 11/06/22 19:27 Dose: 1 mg Documented By: RIKC Lorazepam (Lorazepam 2 Mg/Ml Inj) 1 mg IV Q4HR PRN PRN Reason: anxiety or nausea/vomiting Last Admin: 11/07/22 12:16 Dose: 1 mg Documented By: Admin: 11/07/22 08:39 Dose: 1 mg Documented By: Admin: 11/07/22 04:26 Dose: 1 mg Documented By: Admin: 11/06/22 22:16 Dose: 1 mg Documented By: JOSSELYN Lorazepam (Lorazepam 2 Mg/Ml Inj) 1 mg IV Q4HR PRN PRN Reason: Anxiety Last Admin: 11/10/22 21:45 Dose: 1 mg Documented By: Admin: 11/09/22 19:42 Dose: 1 mg Documented By: Admin: 11/07/22 21:57 Dose: 1 mg Documented By: TOBY Methadone HCl (Methadone Intensol 10 Mg/Ml Oral.Conc) 5 mg PO Q8HR [facility] Last Admin: 11/09/22 05:03 Dose: 5 mg Documented By: Admin: 11/08/22 21:14 Dose: 5 mg Documented By: Admin: 11/08/22 13:58 Dose: 5 mg Documented By: Admin: 11/08/22 05:22 Dose: 5 mg Documented By: Admin: 11/07/22 21:14 Dose: 5 mg Documented By: TOBY Methadone HCl (Methadone 10 Mg Tablet) 20 mg PO Q8H [facility] Last Admin: 11/11/22 14:05 Dose: 20 mg Documented By: Admin: 11/11/22 05:52 Dose: 20 mg Documented By: Admin: 11/10/22 21:45 Dose: 20 mg Documented By: Admin: 11/10/22 13:41 Dose: 20 mg Documented By: Admin: 11/10/22 06:19 Dose: 20 mg Documented By: Admin: 11/09/22 20:59 Dose: 20 mg Documented By: Admin: 11/09/22 14:45 Dose: 20 mg Documented By: Methadone HCl (Methadone 5 Mg Tablet) 15 mg PO NOW ONE Stop: 11/09/22 08:54 Last Admin: 11/09/22 09:18 Dose: 15 mg Documented By: Methadone HCl (Methadone 10 Mg Tablet) 10 mg PO NOW ONE Stop: 11/11/22 08:00 Last Admin: 11/11/22 08:07 Dose: 10 mg Documented By: ELVIA Methadone HCl (Methadone 10 Mg Tablet) 10 mg PO Q8H [facility] Last Admin: 11/11/22 14:05 Dose: 10 mg Documented By: ELVIA Morphine Sulfate (Morphine 10 Mg/0.5 Ml Oral Syringe) 10 mg PO Q1HR PRN PRN Reason: Pain, Severe (7-10) Last Admin: 11/08/22 07:29 Dose: 10 mg Documented By: Admin: 11/07/22 23:58 Dose: 10 mg Documented By: Admin: 11/07/22 22:27 Dose: 10 mg Documented By: Admin: 11/07/22 20:33 Dose: 10 mg Documented By: Admin: 11/07/22 19:18 Dose: 10 mg Documented By: Admin: 11/07/22 17:55 Dose: 10 mg Documented By: Admin: 11/07/22 14:44 Dose: 10 mg Documented By: Admin: 11/07/22 12:18 Dose: 10 mg Documented By: DIANA Morphine Sulfate (Morphine 10 Mg/0.5 Ml Oral Syringe) 20 mg PO Q1HR PRN PRN Reason: Pain, Severe (7-10) Last Admin: 11/10/22 11:48 Dose: 20 mg Documented By: Admin: 11/09/22 18:26 Dose: 20 mg Documented By: Admin: 11/09/22 08:43 Dose: 20 mg Documented By: Admin: 11/08/22 23:59 Dose: 20 mg Documented By: Admin: 11/08/22 21:14 Dose: 20 mg Documented By: Admin: 11/08/22 16:20 Dose: 20 mg Documented By: Admin: 11/08/22 12:49 Dose: 20 mg Documented By: Admin: 11/08/22 09:58 Dose: 20 mg Documented By: Admin: 11/08/22 08:40 Dose: 20 mg Documented By: Naloxone HCl (Naloxone 0.4 Mg/Ml Vial) 0.2 mg IV Q2MIN PRN PRN Reason: Opiate Reversal Ondansetron HCl (Ondansetron 4 Mg/2 Ml Inj) 4 mg IV NOW PRN PRN Reason: Nausea And Vomiting Last Admin: 11/06/22 15:47 Dose: 4 mg Documented By: RICK Ondansetron HCl (Ondansetron 4 Mg/2 Ml Inj) 4 mg IV Q8HR PRN PRN Reason: Nausea And Vomiting Last Admin: 11/11/22 10:01 Dose: 4 mg Documented By: Admin: 11/10/22 21:45 Dose: 4 mg Documented By: Admin: 11/10/22 13:41 Dose: 4 mg Documented By: Admin: 11/10/22 06:27 Dose: 4 mg Documented By: Admin: 11/09/22 20:59 Dose: 4 mg Documented By: Admin: 11/09/22 05:03 Dose: 4 mg Documented By: Admin: 11/08/22 09:22 Dose: 4 mg Documented By: Admin: 11/07/22 21:21 Dose: 4 mg Documented By: TOBY Pantoprazole Sodium (Pantoprazole 40 Mg Vial) 40 mg IV BID [facility] Last Admin: 11/09/22 20:59 Dose: 40 mg Documented By: Admin: 11/09/22 08:44 Dose: 40 mg Documented By: Admin: 11/08/22 21:14 Dose: 40 mg Documented By: Admin: 11/08/22 08:41 Dose: 40 mg Documented By: Admin: 11/07/22 20:33 Dose: 40 mg Documented By: Admin: 11/07/22 08:40 Dose: 40 mg Documented By: Admin: 11/07/22 01:17 Dose: 40 mg Documented By: TOBY Pantoprazole Sodium (Pantoprazole Dr 40 Mg Tablet) 40 mg PO 0700,2100 [facility] Last Admin: 11/11/22 06:21 Dose: 40 mg Documented By: Admin: 11/10/22 22:06 Dose: 40 mg Documented By: TOBY Scopolamine (Scopolamine 1 Patch) 1 patch TOP Q72H [facility] Last Admin: 11/11/22 15:37 Dose: 1 patch Documented By: Admin: 11/08/22 16:25 Dose: 1 patch Documented By: Vital Signs Vital signs: Vital Signs - 8 hr 11/06/22 15:14 11/06/22 16:55 Temperature 98.1 F Pulse Rate 124 H 124 H Respiratory Rate 20 24 Blood Pressure 160/65 H 122/79 Pulse Oximetry 100 98 Oxygen Delivery Method Room Air Room Air <Arnold James DO - Last Filed: 11/07/22 17:40> Orders Ordered: Discontinued Medications Diphenhydramine HCl (Diphenhydramine 50 Mg/Ml Vial) 25 mg IV Q4HR PRN PRN Reason: Itching Last Admin: 11/11/22 00:27 Dose: 25 mg Documented By: Admin: 11/09/22 19:39 Dose: 25 mg Documented By: Admin: 11/09/22 08:54 Dose: 25 mg Documented By: Admin: 11/08/22 22:41 Dose: 25 mg Documented By: Admin: 11/08/22 17:57 Dose: 25 mg Documented By: Enoxaparin Sodium (Enoxaparin 40 Mg/0.4 Ml Syringe) 40 mg SUBCUT DAILY [facility] Last Admin: 11/11/22 09:28 Dose: Not Given Documented By: Admin: 11/10/22 09:33 Dose: 40 mg Documented By: Admin: 11/09/22 08:44 Dose: 40 mg Documented By: Admin: 11/08/22 08:40 Dose: 40 mg Documented By: Admin: 11/07/22 08:40 Dose: 40 mg Documented By: DIANA Fentanyl (Fentanyl 100 Mcg/2 Ml Inj) 50 mcg IV Q30MIN PRN PRN Reason: Pain, Severe (7-10) Last Admin: 11/06/22 16:46 Dose: 50 mcg Documented By: Admin: 11/06/22 16:10 Dose: 50 mcg Documented By: RICK Fentanyl (Fentanyl 100 Mcg/2 Ml Inj) 50 mcg IV Q15MIN PRN PRN Reason: Pain, Severe (7-10) Last Admin: 11/06/22 23:35 Dose: 50 mcg Documented By: Admin: 11/06/22 21:39 Dose: 50 mcg Documented By: Admin: 11/06/22 20:17 Dose: 50 mcg Documented By: Admin: 11/06/22 19:24 Dose: 50 mcg Documented By: Admin: 11/06/22 17:51 Dose: 50 mcg Documented By: Admin: 11/06/22 17:22 Dose: 50 mcg Documented By: ZEINAB Fentanyl (Fentanyl 50 Mcg/Patch) 50 mcg TOP Q72H [facility] Stop: 11/10/22 16:00 Last Admin: 11/08/22 08:41 Dose: 50 mcg Documented By: Fentanyl (Fentanyl 50 Mcg/Patch) 50 mcg TOP Q48H [facility] Last Admin: 11/10/22 16:53 Dose: 50 mcg Documented By: MELISA Heparin Sodium (Porcine) (Heparin Flush (Cl/Picc/Mid-Line) 50 Unit/5 Ml Syringe) 50 unit IV PRN PRN PRN Reason: Flush Heparin Sodium (Porcine) (Heparin 500 Unit/5 Ml Port Flush) 500 unit IV PRN PRN PRN Reason: Flush Hydrocortisone (Hydrocortisone 1% Cream 28 Gm) 1 applic TOP TID PRN PRN Reason: Itching Last Admin: 11/11/22 09:31 Dose: 1 applic Documented By: ELVIA Hydromorphone HCl (Hydromorphone 1 Mg Inj) 1 mg IV NOW ONE Stop: 11/06/22 15:31 Last Admin: 11/06/22 15:47 Dose: 1 mg Documented By: RICK Hydromorphone HCl (Hydromorphone 0.5 Mg Inj) 1 mg IV Q2H PRN PRN Reason: Pain, Severe (7-10) Last Admin: 11/08/22 14:01 Dose: 1 mg Documented By: Admin: 11/08/22 11:55 Dose: 1 mg Documented By: Admin: 11/08/22 07:55 Dose: 1 mg Documented By: Admin: 11/08/22 05:22 Dose: 1 mg Documented By: Admin: 11/08/22 00:54 Dose: 1 mg Documented By: Admin: 11/07/22 22:46 Dose: 1 mg Documented By: [facility] Admin: 11/07/22 21:14 Dose: 1 mg Documented By: Admin: 11/07/22 15:25 Dose: 1 mg Documented By: Admin: 11/07/22 10:12 Dose: 1 mg Documented By: Admin: 11/07/22 08:13 Dose: 1 mg Documented By: Admin: 11/07/22 04:26 Dose: 1 mg Documented By: [facility] Admin: 11/07/22 01:17 Dose: 1 mg Documented By: TOBY Hydromorphone HCl (Hydromorphone 1 Mg Inj) 1 mg IV Q1H PRN PRN Reason: Pain, Severe (7-10) Last Admin: 11/10/22 13:07 Dose: 1 mg Documented By: Admin: 11/10/22 02:06 Dose: 1 mg Documented By: Admin: 11/09/22 11:49 Dose: 1 mg Documented By: Admin: 11/09/22 07:02 Dose: 1 mg Documented By: Admin: 11/09/22 00:13 Dose: 1 mg Documented By: Admin: 11/08/22 23:14 Dose: 1 mg Documented By: Admin: 11/08/22 18:27 Dose: 1 mg Documented By: Hydroxyzine Pamoate (Hydroxyzine Pamoate 25 Mg Capsule) 25 mg PO Q4HR PRN PRN Reason: Nausea Last Admin: 11/11/22 13:07 Dose: 25 mg Documented By: Admin: 11/10/22 18:07 Dose: 25 mg Documented By: Admin: 11/10/22 06:29 Dose: 25 mg Documented By: Admin: 11/10/22 00:20 Dose: 25 mg Documented By: Admin: 11/09/22 18:26 Dose: 25 mg Documented By: Admin: 11/09/22 08:54 Dose: 25 mg Documented By: Admin: 11/08/22 23:58 Dose: 25 mg Documented By: NARCISA Sodium Chloride (Normal Saline 0.9%) 1,000 mls @ 125 mls/hr IV [facility] ONE Stop: 11/06/22 23:29 Last Infusion: 11/06/22 23:50 Dose: 0 mls/hr Documented By: Admin: 11/06/22 15:47 Dose: 125 mls/hr Documented By: RICK Chromium/Copper/Manganese/Seleni/Zn 1 ml/ Potassium Chloride 60 meq/ Amino Acids/Electrolytes 1,031 mls @ 64.438 mls/hr IV 1800 [facility] Stop: 11/08/22 09:59 Last Infusion: 11/08/22 10:00 Dose: 0 mls/hr Documented By: Co-signed By: JOSE Admin: 11/07/22 18:00 Dose: 64.438 mls/hr Documented By: DIANA Co-signed By: JOSE Fat Emulsion Intravenous (Clinolipid 20%) 50 gm in 250 mls @ 25 mls/hr IV MoWeFr@1800 [facility] Fat Emulsion Intravenous (Clinolipid 20%) 50 gm in 250 mls @ 25 mls/hr IV MoWeFr@1800 [facility] Last Infusion: 11/09/22 04:35 Dose: 0 mls/hr Documented By: Admin: 11/08/22 18:35 Dose: 25 mls/hr Documented By: Multivitamins 5 ml/ Chromium/Copper/Manganese/Seleni/Zn 1 ml/ Potassium Chloride 60 meq/Amino Acids/Electrolytes 1,536 mls @ 96 mls/hr IV 1800 [facility] Stop: 11/09/22 09:59 Last Admin: 11/08/22 18:35 Dose: 96 mls/hr Documented By: Co-signed By: JOSE Sodium Chloride 40 meq/Potassium Chloride 40 meq/Multivitamins 5 ml/ Chromium/Copper/Manganese/Seleni/Zn 1 ml/ Amino Acids/Electrolytes 1,536 mls @ 96 mls/hr IV 1800 [facility] Stop: 11/10/22 09:59 Last Admin: 11/09/22 18:14 Dose: 96 mls/hr Documented By: Co-signed By: MELISA Sodium Chloride 80 meq/Potassium Chloride 20 meq/Multivitamins 5 ml/ Chromium/Copper/Manganese/Seleni/Zn 1 ml/ Amino Acids/Electrolytes 1,536 mls @ 96 mls/hr IV 1800 [facility] Stop: 11/11/22 09:59 Last Admin: 11/10/22 17:44 Dose: 96 mls/hr Documented By: MELISA Co-signed By: GENOVEVA Sodium Chloride 80 meq/Potassium Chloride 20 meq/Multivitamins 5 ml/ Chromium/Copper/Manganese/Seleni/Zn 1 ml/ Amino Acids/Electrolytes 1,536 mls @ 96 mls/hr IV 1800 [facility] Stop: 11/12/22 09:59 Lidocaine (Lidocaine Patch 1 Each Adh..Patch) 1 each TOP DAILY [facility] Last Admin: 11/11/22 08:07 Dose: 1 each Documented By: Admin: 11/10/22 09:33 Dose: 1 each Documented By: Admin: 11/09/22 08:45 Dose: 1 each Documented By: Admin: 11/08/22 16:19 Dose: 1 each Documented By: Lidocaine (Remove Lidocaine Patch) 1 each TOP BEDTIME [facility] Last Admin: 11/10/22 22:06 Dose: Not Given Documented By: Admin: 11/09/22 21:07 Dose: 1 each Documented By: Admin: 11/08/22 21:14 Dose: 1 each Documented By: NARCISA Lorazepam (Lorazepam 2 Mg/Ml Inj) 1 mg IV NOW ONE Stop: 11/06/22 16:41 Last Admin: 11/06/22 16:45 Dose: 1 mg Documented By: RICK Lorazepam (Lorazepam 2 Mg/Ml Inj) 1 mg IV NOW ONE Stop: 11/06/22 19:27 Last Admin: 11/06/22 19:27 Dose: 1 mg Documented By: RICK Lorazepam (Lorazepam 2 Mg/Ml Inj) 1 mg IV Q4HR PRN PRN Reason: anxiety or nausea/vomiting Last Admin: 11/07/22 12:16 Dose: 1 mg Documented By: Admin: 11/07/22 08:39 Dose: 1 mg Documented By: Admin: 11/07/22 04:26 Dose: 1 mg Documented By: Admin: 11/06/22 22:16 Dose: 1 mg Documented By: JOSSELYN Lorazepam (Lorazepam 2 Mg/Ml Inj) 1 mg IV Q4HR PRN PRN Reason: Anxiety Last Admin: 11/10/22 21:45 Dose: 1 mg Documented By: Admin: 11/09/22 19:42 Dose: 1 mg Documented By: Admin: 11/07/22 21:57 Dose: 1 mg Documented By: TOBY Methadone HCl (Methadone Intensol 10 Mg/Ml Oral.Conc) 5 mg PO Q8HR [facility] Last Admin: 11/09/22 05:03 Dose: 5 mg Documented By: Admin: 11/08/22 21:14 Dose: 5 mg Documented By: Admin: 11/08/22 13:58 Dose: 5 mg Documented By: Admin: 11/08/22 05:22 Dose: 5 mg Documented By: Admin: 11/07/22 21:14 Dose: 5 mg Documented By: TOBY Methadone HCl (Methadone 10 Mg Tablet) 20 mg PO Q8H [facility] Last Admin: 11/11/22 14:05 Dose: 20 mg Documented By: Admin: 11/11/22 05:52 Dose: 20 mg Documented By: [facility] Admin: 11/10/22 21:45 Dose: 20 mg Documented By: Admin: 11/10/22 13:41 Dose: 20 mg Documented By: Admin: 11/10/22 06:19 Dose: 20 mg Documented By: Admin: 11/09/22 20:59 Dose: 20 mg Documented By: Admin: 11/09/22 14:45 Dose: 20 mg Documented By: MS Methadone HCl (Methadone 5 Mg Tablet) 15 mg PO NOW ONE Stop: 11/09/22 08:54 Last Admin: 11/09/22 09:18 Dose: 15 mg Documented By: MS Methadone HCl (Methadone 10 Mg Tablet) 10 mg PO NOW ONE Stop: 11/11/22 08:00 Last Admin: 11/11/22 08:07 Dose: 10 mg Documented By: ELVIA Methadone HCl (Methadone 10 Mg Tablet) 10 mg PO Q8H [facility] Last Admin: 11/11/22 14:05 Dose: 10 mg Documented By: ELVIA Morphine Sulfate (Morphine 10 Mg/0.5 Ml Oral Syringe) 10 mg PO Q1HR PRN PRN Reason: Pain, Severe (7-10) Last Admin: 11/08/22 07:29 Dose: 10 mg Documented By: Admin: 11/07/22 23:58 Dose: 10 mg Documented By: Admin: 11/07/22 22:27 Dose: 10 mg Documented By: Admin: 11/07/22 20:33 Dose: 10 mg Documented By: Admin: 11/07/22 19:18 Dose: 10 mg Documented By: Admin: 11/07/22 17:55 Dose: 10 mg Documented By: Admin: 11/07/22 14:44 Dose: 10 mg Documented By: Admin: 11/07/22 12:18 Dose: 10 mg Documented By: DIANA Morphine Sulfate (Morphine 10 Mg/0.5 Ml Oral Syringe) 20 mg PO Q1HR PRN PRN Reason: Pain, Severe (7-10) Last Admin: 11/10/22 11:48 Dose: 20 mg Documented By: Admin: 11/09/22 18:26 Dose: 20 mg Documented By: Admin: 11/09/22 08:43 Dose: 20 mg Documented By: Admin: 11/08/22 23:59 Dose: 20 mg Documented By: Admin: 11/08/22 21:14 Dose: 20 mg Documented By: Admin: 11/08/22 16:20 Dose: 20 mg Documented By: Admin: 11/08/22 12:49 Dose: 20 mg Documented By: Admin: 11/08/22 09:58 Dose: 20 mg Documented By: Admin: 11/08/22 08:40 Dose: 20 mg Documented By: Naloxone HCl (Naloxone 0.4 Mg/Ml Vial) 0.2 mg IV Q2MIN PRN PRN Reason: Opiate Reversal Ondansetron HCl (Ondansetron 4 Mg/2 Ml Inj) 4 mg IV NOW PRN PRN Reason: Nausea And Vomiting Last Admin: 11/06/22 15:47 Dose: 4 mg Documented By: RICK Ondansetron HCl (Ondansetron 4 Mg/2 Ml Inj) 4 mg IV Q8HR PRN PRN Reason: Nausea And Vomiting Last Admin: 11/11/22 10:01 Dose: 4 mg Documented By: Admin: 11/10/22 21:45 Dose: 4 mg Documented By: Admin: 11/10/22 13:41 Dose: 4 mg Documented By: Admin: 11/10/22 06:27 Dose: 4 mg Documented By: Admin: 11/09/22 20:59 Dose: 4 mg Documented By: Admin: 11/09/22 05:03 Dose: 4 mg Documented By: Admin: 11/08/22 09:22 Dose: 4 mg Documented By: Admin: 11/07/22 21:21 Dose: 4 mg Documented By: TOBY Pantoprazole Sodium (Pantoprazole 40 Mg Vial) 40 mg IV BID [facility] Last Admin: 11/09/22 20:59 Dose: 40 mg Documented By: Admin: 11/09/22 08:44 Dose: 40 mg Documented By: Admin: 11/08/22 21:14 Dose: 40 mg Documented By: Admin: 11/08/22 08:41 Dose: 40 mg Documented By: Admin: 11/07/22 20:33 Dose: 40 mg Documented By: Admin: 11/07/22 08:40 Dose: 40 mg Documented By: Admin: 11/07/22 01:17 Dose: 40 mg Documented By: TOBY Pantoprazole Sodium (Pantoprazole Dr 40 Mg Tablet) 40 mg PO 0700,2100 [facility] Last Admin: 11/11/22 06:21 Dose: 40 mg Documented By: Admin: 11/10/22 22:06 Dose: 40 mg Documented By: TOBY Scopolamine (Scopolamine 1 Patch) 1 patch TOP Q72H [facility] Last Admin: 11/11/22 15:37 Dose: 1 patch Documented By: Admin: 11/08/22 16:25 Dose: 1 patch Documented By: MS Vital Signs Vital signs: Vital Signs - 8 hr 11/06/22 15:14 11/06/22 16:55 Temperature 98.1 F Pulse Rate 124 H 124 H Respiratory Rate 20 24 Blood Pressure 160/65 H 122/79 Pulse Oximetry 100 98 Oxygen Delivery Method Room Air Room Air MDM - Abdominal Pain <Ken Lamb MD - Last Filed: 12/11/22 19:53> Lab Data 11/11/22 06:00 11/11/22 06:00 Labs: Lab Results 11/06/22 11/06/22 11/06/22 Range/Units 15:45 15:45 15:45 WBC 6.0 (4.5-11.0) X10^3/uL RBC 3.41 L (4.0-5.2) X10^6/uL Hgb 8.3 L (12.0-16.0) g/dL Hct 25.3 L (36-46) % MCV 74.0 L (80-100) fL MCH 24.2 L (26-34) PG MCHC 32.7 (30-36) % RDW 16.2 H (11.6-14.8) % Plt Count 352 (150-400) X10^3/uL Neut % (Auto) 85.3 H (50-75) % Lymph % (Auto) 9.5 L (25-40) % [place] % (Auto) 4.2 (3-14) % Eos % (Auto) 0.7 L (2-4) % Baso % (Auto) 0.3 (0-2) % Neut # (Auto) 5100 (8372-3516) /uL Lymph # (Auto) 600 L (9469-1723) /uL [place] # (Auto) 300 (0-900) /uL Eos # (Auto) 0 (0-450) /uL Baso # (Auto) 0 (0-100) /uL PT 15.4 H (10.1-12.7) SECONDS INR 1.3 (0.9-1.3) Sodium 128 L (137-145) mmol/L Potassium 4.5 (3.4-5.1) mmol/L Chloride 95 L (98-107) mmol/L Carbon Dioxide 29 (22-32) mmol/L BUN 19 H (7-17) mg/dL Creatinine 0.45 L (0.52-1.04) mg/dL Estimated GFR > 60 (>60) mL/min BUN/Creatinine Ratio 42.2 H (6-22) Glucose 100 (70-100) mg/dL Calcium 7.6 L (8.4-10.2) mg/dL Total Bilirubin 0.9 (0.2-1.3) mg/dL AST 29 (14-36) IU/L ALT 18 (<35) IU/L Alkaline Phosphatase 191 H (38-126) U/L Total Protein 5.9 L (6.3-8.2) g/dL Albumin 2.7 L (3.5-5.0) g/dL Globulin 3.2 (1.7-4.1) g/dL Albumin/Globulin Ratio 0.8 L (1.0-2.8) Lipase 124 (23-300) U/L Urine Color Urine Appearance Urine pH (4.5-8.0) Ur Specific [place] (1.000-1.035) Urine Protein (Negative) Urine Glucose (UA) (Negative) g/dL Urine Ketones (NEGATIVE) Urine Occult Blood (Negative) Urine Nitrate (Negative) Urine Bilirubin (NEGATIVE) Ur Bilirubin Confirm (Negative) Urine Urobilinogen (0.2) E.U./dL Ur Leukocyte Esterase (NEGATIVE) Urine RBC (0-5/HPF) Urine WBC (0-5/HPF) Ur Squamous Epith Cells (0-5/HPF) Urine Bacteria (None) Ur Culture Indicated? Urine Test (Negative) SARS-CoV-2 (PCR) (Negative) 11/06/22 11/06/22 11/06/22 Range/Units 17:02 17:10 17:10 WBC (4.5-11.0) X10^3/uL RBC (4.0-5.2) X10^6/uL Hgb (12.0-16.0) g/dL Hct (36-46) % MCV (80-100) fL MCH (26-34) PG MCHC (30-36) % RDW (11.6-14.8) % Plt Count (150-400) X10^3/uL Neut % (Auto) (50-75) % Lymph % (Auto) (25-40) % [place] % (Auto) (3-14) % Eos % (Auto) (2-4) % Baso % (Auto) (0-2) % Neut # (Auto) (2181-7632) /uL Lymph # (Auto) (3088-4093) /uL [place] # (Auto) (0-900) /uL Eos # (Auto) (0-450) /uL Baso # (Auto) (0-100) /uL PT (10.1-12.7) SECONDS INR (0.9-1.3) Sodium (137-145) mmol/L Potassium (3.4-5.1) mmol/L Chloride (98-107) mmol/L Carbon Dioxide (22-32) mmol/L BUN (7-17) mg/dL Creatinine (0.52-1.04) mg/dL Estimated GFR (>60) mL/min BUN/Creatinine Ratio (6-22) Glucose (70-100) mg/dL Calcium (8.4-10.2) mg/dL Total Bilirubin (0.2-1.3) mg/dL AST (14-36) IU/L ALT (<35) IU/L Alkaline Phosphatase (38-126) U/L Total Protein (6.3-8.2) g/dL Albumin (3.5-5.0) g/dL Globulin (1.7-4.1) g/dL Albumin/Globulin Ratio (1.0-2.8) Lipase (23-300) U/L Urine Color [place] Urine Appearance Clear Urine pH 6.0 (4.5-8.0) Ur Specific [place] 1.020 (1.000-1.035) Urine Protein Negative (Negative) Urine Glucose (UA) Negative (Negative) g/dL Urine Ketones Negative (NEGATIVE) Urine Occult Blood Negative (Negative) Urine Nitrate Negative (Negative) Urine Bilirubin 1+ H (NEGATIVE) Ur Bilirubin Confirm Negative (Negative) Urine Urobilinogen 2.0 H (0.2) E.U./dL Ur Leukocyte Esterase Trace H (NEGATIVE) Urine RBC None seen (0-5/HPF) Urine WBC 1-5/hpf (0-5/HPF) Ur Squamous Epith Cells 1-5 /hpf (0-5/HPF) Urine Bacteria None seen (None) Ur Culture Indicated? Specimen cultured Urine Test Negative (Negative) SARS-CoV-2 (PCR) Negative (Negative) <Arnold James DO - Last Filed: 11/07/22 17:40> Lab Data Labs: Lab Results 11/06/22 11/06/22 11/06/22 Range/Units 15:45 15:45 15:45 WBC 6.0 (4.5-11.0) X10^3/uL RBC 3.41 L (4.0-5.2) X10^6/uL Hgb 8.3 L (12.0-16.0) g/dL Hct 25.3 L (36-46) % MCV 74.0 L (80-100) fL MCH 24.2 L (26-34) PG MCHC 32.7 (30-36) % RDW 16.2 H (11.6-14.8) % Plt Count 352 (150-400) X10^3/uL Neut % (Auto) 85.3 H (50-75) % Lymph % (Auto) 9.5 L (25-40) % [place] % (Auto) 4.2 (3-14) % Eos % (Auto) 0.7 L (2-4) % Baso % (Auto) 0.3 (0-2) % Neut # (Auto) 5100 (1779-2229) /uL Lymph # (Auto) 600 L (6814-4621) /uL [place] # (Auto) 300 (0-900) /uL Eos # (Auto) 0 (0-450) /uL Baso # (Auto) 0 (0-100) /uL PT 15.4 H (10.1-12.7) SECONDS INR 1.3 (0.9-1.3) Sodium 128 L (137-145) mmol/L Potassium 4.5 (3.4-5.1) mmol/L Chloride 95 L (98-107) mmol/L Carbon Dioxide 29 (22-32) mmol/L BUN 19 H (7-17) mg/dL Creatinine 0.45 L (0.52-1.04) mg/dL Estimated GFR > 60 (>60) mL/min BUN/Creatinine Ratio 42.2 H (6-22) Glucose 100 (70-100) mg/dL Calcium 7.6 L (8.4-10.2) mg/dL Total Bilirubin 0.9 (0.2-1.3) mg/dL AST 29 (14-36) IU/L ALT 18 (<35) IU/L Alkaline Phosphatase 191 H (38-126) U/L Total Protein 5.9 L (6.3-8.2) g/dL Albumin 2.7 L (3.5-5.0) g/dL Globulin 3.2 (1.7-4.1) g/dL Albumin/Globulin Ratio 0.8 L (1.0-2.8) Lipase 124 (23-300) U/L Urine Color Urine Appearance Urine pH (4.5-8.0) Ur Specific [place] (1.000-1.035) Urine Protein (Negative) Urine Glucose (UA) (Negative) g/dL Urine Ketones (NEGATIVE) Urine Occult Blood (Negative) Urine Nitrate (Negative) Urine Bilirubin (NEGATIVE) Ur Bilirubin Confirm (Negative) Urine Urobilinogen (0.2) E.U./dL Ur Leukocyte Esterase (NEGATIVE) Urine RBC (0-5/HPF) Urine WBC (0-5/HPF) Ur Squamous Epith Cells (0-5/HPF) Urine Bacteria (None) Ur Culture Indicated? Urine Test (Negative) SARS-CoV-2 (PCR) (Negative) 11/06/22 11/06/22 11/06/22 Range/Units 17:02 17:10 17:10 WBC (4.5-11.0) X10^3/uL RBC (4.0-5.2) X10^6/uL Hgb (12.0-16.0) g/dL Hct (36-46) % MCV (80-100) fL MCH (26-34) PG MCHC (30-36) % RDW (11.6-14.8) % Plt Count (150-400) X10^3/uL Neut % (Auto) (50-75) % Lymph % (Auto) (25-40) % [place] % (Auto) (3-14) % Eos % (Auto) (2-4) % Baso % (Auto) (0-2) % Neut # (Auto) (5440-3228) /uL Lymph # (Auto) (3756-1880) /uL [place] # (Auto) (0-900) /uL Eos # (Auto) (0-450) /uL Baso # (Auto) (0-100) /uL PT (10.1-12.7) SECONDS INR (0.9-1.3) Sodium (137-145) mmol/L Potassium (3.4-5.1) mmol/L Chloride (98-107) mmol/L Carbon Dioxide (22-32) mmol/L BUN (7-17) mg/dL Creatinine (0.52-1.04) mg/dL Estimated GFR (>60) mL/min BUN/Creatinine Ratio (6-22) Glucose (70-100) mg/dL Calcium (8.4-10.2) mg/dL Total Bilirubin (0.2-1.3) mg/dL AST (14-36) IU/L ALT (<35) IU/L Alkaline Phosphatase (38-126) U/L Total Protein (6.3-8.2) g/dL Albumin (3.5-5.0) g/dL Globulin (1.7-4.1) g/dL Albumin/Globulin Ratio (1.0-2.8) Lipase (23-300) U/L Urine Color [place] Urine Appearance Clear Urine pH 6.0 (4.5-8.0) Ur Specific [place] 1.020 (1.000-1.035) Urine Protein Negative (Negative) Urine Glucose (UA) Negative (Negative) g/dL Urine Ketones Negative (NEGATIVE) Urine Occult Blood Negative (Negative) Urine Nitrate Negative (Negative) Urine Bilirubin 1+ H (NEGATIVE) Ur Bilirubin Confirm Negative (Negative) Urine Urobilinogen 2.0 H (0.2) E.U./dL Ur Leukocyte Esterase Trace H (NEGATIVE) Urine RBC None seen (0-5/HPF) Urine WBC 1-5/hpf (0-5/HPF) Ur Squamous Epith Cells 1-5 /hpf (0-5/HPF) Urine Bacteria None seen (None) Ur Culture Indicated? Specimen cultured Urine Test Negative (Negative) SARS-CoV-2 (PCR) Negative (Negative) [facility] Narrative Medical decision making narrative: [1900] (Jacob) Patient received in sign out from [Adonis]. I have reviewed the clinical course and performed an independent history and physical exam. Patient with moderate abdominal distention, significantly tender, pain still 7/[address] efforts[address] CT is back and does demonstrate caliber change in her small bowel raising the question of an early or developing small bowel obstruction. Patient will require hospitalization for ongoing monitoring, treatment of pain and stabilization of condition CC: Worsening abdominal pain Complicating co-morbidities: Gastric adenocarcinoma Data collected from: Patient Medical records reviewed: Prior notes reviewed in our EMR Differential considered, but not limited to: Worsening of gastric adenocarcinoma, bowel obstruction versus other Exam documented above, pertinent findings include: Patient obviously in significant pain, tender swollen abdomen with decreased bowel sounds Lab Test results independently reviewed as above. Pertinent findings: No significant leukocytosis or left shift, patient is relatively anemic though not significantly departed from her baseline. Slightly hyponatremic, again at her relative and recent baseline, otherwise electrolytes and renal function at baseline Independently reviewed EKG as above Imaging studies independently reviewed: Imaging suggestive of possible early bowel obstruction Consultations: Discussed with Dr. Buenrostro (general surgery) who along with Dr. Milan (hospitalist) are happy to care for this patient but do request a consultation with the [facility] oncology to be sure there are no other treatment options. Discussed with on-call solid tumor oncologist at the [facility] who recommends continued therapies as stated and there are no specific or alternate options, this is a terminal diagnosis with palliative interventions as the goal Treatments: See above Re-evaluations: Moderate stabilization of pain control Discussion: Patient with rapidly worsening symptoms consistent with gastric adenocarcinoma presents with worsening abdominal pain not controlled by home medications. After multiple attempts to control pain at our facility advanced imaging shows the potential bowel obstruction, does not surgical at this time though surgeons have been consulted and will play a role during the hospitalization. I have been very clear with the patient and family that oncology states there is no chance of a curative approach and they understand that this is a terminal diagnosis and understand the focus should be on providing some level of comfort. Patient will be admitted to follow bowel obstruction, continue to control pain, involve care management and possibly hospice <Arnold James DO - Last Filed: 11/07/22 17:40> Critical Care Time Critical Care Time: Yes Total Critical Care Time: 45 Attestation: The high probability of a clinically significant, sudden or life threatening deterioration of the [GI] system(s) required my full and direct attention, intervention and personal management. The aggregate critical care time was [45] minutes. This time is in addition to time spent performing reported procedures but includes the following: [x] Data Review and interpretation [x] Patient assessment and monitoring of vital signs [x] Documentation [x] Medication orders and management Discharge Plan Departure Patient Disposition: Admitted As Inpatient Clinical Impression: Gastric adenocarcinoma, Nausea & vomiting, Intractable abdominal pain, Bowel obstruction Admit Date/Time: 11/06/22 23:35 Admit Provider: Jeffrey Milan
--- NOTE | 2022-11-06 15:33 | DI.US.S_ITS ---
PROCEDURE: US ABDOMEN LIMITED INDICATIONS: ASCITIES TECHNIQUE: Real-time focused scanning was performed of the abdomen, with image documentation. COMPARISON: [facility], , US ABDOMEN LIMITED, 11/05/2022, 18:59. FINDINGS: Small amount of abdominal free fluid present, with volume and distribution of fluid felt not safe for therapeutic paracentesis. IMPRESSION: Small amount of abdominal free fluid present, with volume and distribution of fluid felt not safe for therapeutic paracentesis. Dictated by: Cameron Smith M.D. on 11/06/2022 at 16:22 Approved by: Cameron Smith M.D. on 11/06/2022 at 16:25
[2022-11-06] MEDS: SODIUM CHLORIDE 0.9% 1,000 ML 125 ML IV (15:47)
[2022-11-06] MEDS: ONDANSETRON 4 MG/2 ML INJ IV (15:47)
[2022-11-06] MEDS: HYDROMORPHONE 1 MG INJ IV (15:47)
[2022-11-06 16:00] LABS: Add Manual Diff / Slide Review NO; Basophils Absolute Auto 0 /uL (0-100); Basophils Percent Auto 0.3 % (0-2); Eosinophils Absolute Auto 0 /uL (0-450); Eosinophils Percent Auto 0.7 % (2-4); Hematocrit 25.3 % (36-46); Hemoglobin 8.3 g/dL (12.0-16.0); Lymphocytes Absolute Auto 600 /uL (1100-4500); Lymphocytes Percent Auto 9.5 % (25-40); Mean Corpuscular HGB Conc 32.7 % (30-36); Mean Corpuscular Hemoglobin 24.2 PG (26-34); Monocytes Absolute Auto 300 /uL (0-900); Monocytes Percent Auto 4.2 % (3-14); Neutrophils Absolute Auto 5100 /uL (1500-7000); Neutrophils Percent Auto 85.3 % (50-75); Platelet Count 352 X10^3/uL (150-400); Red Blood Cell Count 3.41 X10^6/uL (4.0-5.2); Red Cell Distribution Width 16.2 % (11.6-14.8)
[2022-11-06] MEDS: fentaNYL 100 MCG/2 ML INJ 50 MCG IV ×8 (16:10→23:35)
[2022-11-06 16:11] LABS: INR 1.3 (0.9-1.3); Prothrombin Time 15.4 SECONDS (10.1-12.7)
[2022-11-06 16:17] LABS: Alanine Aminotransferase 18 IU/L (<35); Albumin 2.7 g/dL (3.5-5.0); Albumin Globulin Ratio 0.8 (1.0-2.8); Alkaline Phosphatase 191 U/L (38-126); Aspartate Aminotransferase 29 IU/L (14-36); BUN Creatinine Ratio 42.2 (6-22); Bilirubin Total 0.9 mg/dL (0.2-1.3); Blood Urea Nitrogen 19 mg/dL (7-17); Calcium 7.6 mg/dL (8.4-10.2); Carbon Dioxide 29 mmol/L (22-32); Chloride 95 mmol/L (98-107); Estimated Glomerular Filt Rate > 60 mL/min (>60); Globulin 3.2 g/dL (1.7-4.1); Glucose 100 mg/dL (70-100); HEMOLYSIS < 15 (0-50); Lipase 124 U/L (23-300); Potassium 4.5 mmol/L (3.4-5.1); Sodium 128 mmol/L (137-145); Total Protein 5.9 g/dL (6.3-8.2)
[2022-11-06] MEDS: LORazepam 2 MG/ML INJ 1 MG IV ×3 (16:45→22:16)
[2022-11-06 16:55] VITALS: BP 122/79; PULSE 124; RESP 24; O2SAT 98
[2022-11-06 17:16] LABS: Pregnancy Test Urine Negative (Negative)
[2022-11-06 17:25] LABS: Appearance Urine UA CLEAR; Bilirubin Urine UA 1+ (NEGATIVE); Color Urine UA ORANGE; Glucose Urine UA NEGATIVE (Negative); Ketones Urine UA NEGATIVE (NEGATIVE); Leukocyte Esterase Urine UA TRACE (NEGATIVE); Nitrite Urine UA NEGATIVE (Negative); Occult Blood Urine UA NEGATIVE (Negative); Protein Urine UA NEGATIVE (Negative)
[2022-11-06 17:44] LABS: COVID19 -Nasal RAPID Negative (Negative)
--- NOTE | 2022-11-06 17:44 | DI.CT.S_ITS ---
PROCEDURE: CT ABDOMEN PELVIS W CON INDICATIONS: Metastatic gastric cancer. Pain and distention. TECHNIQUE: After the administration of intravenous contrast, axial sections acquired from the lung bases to the pubic symphysis. Coronal and sagittal reformats were performed. For radiation dose reduction, the following was used: automated exposure control, adjustment of mA and/or kV according to patient size. COMPARISON: [facility], CT, CT ABDOMEN PELVIS W CON, 10/30/2022, 16:36. FINDINGS: Lung bases: Small right pleural effusion, decreased compared to the prior CT. Nonspecific patchy opacities lower aspect right middle lobe ABDOMEN: Liver: Unremarkable. Gallbladder: Hyperdense material present in the gallbladder lumen, possible sludge and/or vicarious excretion of contrast. A calcified gallstone is present as before. Biliary ducts: Unremarkable. Pancreas: Unremarkable. Spleen: Unremarkable. Adrenal Glands: Unremarkable. Kidneys and Ureters: No hydronephrosis. Stomach and Bowel: The stomach is not well evaluated by CT. Dilation of multiple small bowel loops present, with distal small bowel decompressed. Possible caliber transition point in the right abdomen (series 2, image 51) versus area small bowel kinking or peristalsis. No definite obstructing etiology identified. Peritoneum: Small-moderate amount of abdominal free fluid, decreased compared to the prior CT. Ventral Wall: Mild body wall edema Vessels: No abdominal aortic aneurysm. PELVIS: Pelvic Organs: Unremarkable CT appearance Bladder: Unremarkable. Bones: Unremarkable. IMPRESSION: 1. Increase in small-bowel dilation since the previous examination. There is a possible caliber transition point in the right abdomen with distal small bowel appearing decompressed. Findings raise the possibility of developing or partial small bowel obstruction, high-grade obstruction not excludable. No definite obstructing etiology identified, adhesions or obstruction related to known metastatic disease possible. 2. Small-moderate amount of abdominal free fluid, decreased compared to prior CT. 3. Small right pleural effusion, decreased compared to the prior CT. Nonspecific patchy opacities present at the right middle lobe, likely infectious/inflammatory. Dictated by: Cameron Smith M.D. on 11/06/2022 at 18:20 Approved by: Cameron Smith M.D. on 11/06/2022 at 18:37
[2022-11-06 18:07] LABS: Bacteria Urine None Seen; Culture Indicated Urine Specimen Cultured; Ictotest Urine Negative (Negative); RBC Urine None Seen (0-5/HPF); Squamous Epithelial Cell Urine 1-5 /HPF (0-5/HPF); WBC Urine 1-5/HPF (0-5/HPF)
[2022-11-07] VITALS (13 sets, daily range): BP systolic 128–134; BP diastolic 64–81; PULSE 119–139; RESP 17–18; TEMP 36.2–36.7; O2SAT 97–100; BMI 30.5
--- NOTE | 2022-11-07 00:30 | P.HP_ITS ---
History of Present Illness History of Present Illness Date Patient Seen: 11/07/22 Time Patient Seen: 00:15 Chief complaint: uncontrolled abd pain, ca pt, difficulty breathing Narrative: Ms. Chilo Stokes is a 27W with recently diagnosed metastatic, poorly diffe rentiated gastric adenocarcinoma who presents to the hospital with abdominal distention and pain. She was recently admitted to this hospital for the same symptoms during which she did get EGD and biopsy, was diagnosed with cancer as above, and found to have peritoneal mets and ascites. Ultimately she was started on palliative folfox and nivolumab. She was persitently tachycardic during that visit with minimal improvement with pain medications and fluid. She had CT angio negative for PE. She had poor tolerance of oral diet, and was started on TPN. She was discharged only a few days ago. She has been unable to tolerate diet. She has worsening abdominal pain. She presented to the ED yesterday and eval was done to see if she had ascites that could be tapped, there was not enough to safely tap and she was discharged home. She presents today with worsening abdominal pain. She has been using fentanyl, methadone, and morphine with minimal relief. In the ED workup was done, vitals notable for afebrile, tachycardic 122. Labs notable for WBC 6.0, hgb 8.3, plts 352. Na 128, Creatinine 0.45. Abdominal ultrasound showed small amount of ascites. CT abdomen showed small bowel dilation concerning for possible obstruction. small ascites, small pleural effusion. There was also noted opacity in right middle lobe, possible infectious versus inflammatory. She denied cough or shortness of breath. General surgery was consulted and noted that there was no surgical intervention indicated. Oncology at was called and noted that there is no further medical treatment for her, and that her condition is ultimately terminal. She is admitted for pain control. Patient History Medical History Healthy adult Family & Social History Family History Father Cancer Diabetes mellitus Grandmother Diabetes mellitus Father Cancer Aunt Cancer Social History: household members children,family Safety & Behavioral: Feels Safe in Current Yes Environment Been Physically Hurt or No Threatened By a Person Tobacco & Substance use: Tobacco type e-cigarettes Smoking Status Former smoker alcohol intake frequency holiday/special occasion Substance Use Type does not use Meds Home Medications and Allergies Home Medications Medication Instructions Recorded Confirmed Type VIT#96/FERROUS FUM/FA 1 tab PO QDAY #90 tabs 06/19/16 Rx ( Vitamin) fentanyl 50 mcg/hr transdermal 50 mcg topical Q72H #5 ea 11/02/22 Rx patch hydroxyzine pamoate 25 mg capsule 25 mg PO Q6HR PRN Itching #30 caps 11/02/22 Rx methadone 5 mg tablet 5 mg PO TID #45 tabs 11/02/22 Rx morphine 15 mg immediate release 30 mg PO Q4H PRN Pain, Severe 11/02/22 Rx tablet (7-10) #60 tabs olanzapine 10 mg disintegrating 5 mg PO DAILY #30 tabs 11/02/22 Rx tablet (Zyprexa Zydis) ondansetron 8 mg disintegrating 8 mg PO Q8H PRN nausea and 11/02/22 Rx tablet vomiting #30 tabs pantoprazole 40 mg tablet,delayed 40 mg PO DAILY #30 tabs 11/02/22 Rx release (Protonix) sennosides 8.6 mg-docusate sodium 2 tab-cap PO BID #60 caps 11/02/22 Rx 50 mg capsule (Senna Plus) furosemide 20 mg tablet (Lasix) 20 mg PO DAILY #30 tabs 11/04/22 Rx Allergies Allergy/AdvReac Type Severity Reaction Status Date / Time No Known Drug Allergies Allergy Verified 11/06/22 15:14 Review of Systems Review of Systems Narrative: 14 systems reviewed and negative aside from what is noted in HPI Exam Vital Signs (past 8 hours): - 11/06/22 16:55 Pulse Rate 124 H Respiratory Rate 24 Blood Pressure 122/79 Pulse Oximetry 98 Oxygen Delivery Method Room Air Oxygen Delivery Method Room Air Narrative Exam Narrative: GEN: fatigued, lethargic HEENT: dry mucous membranes, PERRL NECK: trachea midline, no JVD PULM: clear bilaterally, no wheezes, rhonchi, rales CV: tachycardic no murmurs ABD: distended, tender diffusely, but especially epigastric, decreased bowel sounds EXT: warm and well perfused with no edema NEURO: awake but fatigued, no focal deficits Objective Labs 11/06/22 15:45 11/06/22 15:45 Labs: Laboratory Results - last 24 hr 11/06/22 11/06/22 11/06/22 15:45 15:45 15:45 WBC 6.0 RBC 3.41 L Hgb 8.3 L Hct 25.3 L MCV 74.0 L MCH 24.2 L MCHC 32.7 RDW 16.2 H Plt Count 352 Neut % (Auto) 85.3 H Lymph % (Auto) 9.5 L Darke % (Auto) 4.2 Eos % (Auto) 0.7 L Baso % (Auto) 0.3 Neut # (Auto) 5100 Lymph # (Auto) 600 L Darke # (Auto) 300 Eos # (Auto) 0 Baso # (Auto) 0 PT 15.4 H INR 1.3 Sodium 128 L Potassium 4.5 Chloride 95 L Carbon Dioxide 29 BUN 19 H Creatinine 0.45 L Estimated GFR > 60 BUN/Creatinine Ratio 42.2 H Glucose 100 Calcium 7.6 L Total Bilirubin 0.9 AST 29 ALT 18 Alkaline Phosphatase 191 H Total Protein 5.9 L Albumin 2.7 L Globulin 3.2 Albumin/Globulin Ratio 0.8 L Lipase 124 Urine Color Urine Appearance Urine pH Ur Specific [place] Urine Protein Urine Glucose (UA) Urine Ketones Urine Occult Blood Urine Nitrate Urine Bilirubin Ur Bilirubin Confirm Urine Urobilinogen Ur Leukocyte Esterase Urine RBC Urine WBC Ur Squamous Epith Cells Urine Bacteria Ur Culture Indicated? Urine Test SARS-CoV-2 (PCR) 11/06/22 11/06/22 11/06/22 17:02 17:10 17:10 WBC RBC Hgb Hct MCV MCH MCHC RDW Plt Count Neut % (Auto) Lymph % (Auto) Darke % (Auto) Eos % (Auto) Baso % (Auto) Neut # (Auto) Lymph # (Auto) Darke # (Auto) Eos # (Auto) Baso # (Auto) PT INR Sodium Potassium Chloride Carbon Dioxide BUN Creatinine Estimated GFR BUN/Creatinine Ratio Glucose Calcium Total Bilirubin AST ALT Alkaline Phosphatase Total Protein Albumin Globulin Albumin/Globulin Ratio Lipase Urine Color [place] Urine Appearance Clear Urine pH 6.0 Ur Specific [place] 1.020 Urine Protein Negative Urine Glucose (UA) Negative Urine Ketones Negative Urine Occult Blood Negative Urine Nitrate Negative Urine Bilirubin 1+ H Ur Bilirubin Confirm Negative Urine Urobilinogen 2.0 H Ur Leukocyte Esterase Trace H Urine RBC None seen Urine WBC 1-5/hpf Ur Squamous Epith Cells 1-5 /hpf Urine Bacteria None seen Ur Culture Indicated? Specimen cultured Urine Test Negative SARS-CoV-2 (PCR) Negative Assessment & Plan Assessment & Plan narrative: 1. Possible small bowel obstruction -concerning for advancing cancer -per general surgery no surgical indication -keep npo for now -hold off on ng tube for now 2. Refractory abdominal pain -secondary to neoplasm -continue fentanyl -continue ativan, pascual -add dilaudid 3. Metastatic gastric adenocarcinoma -not curative -did recently start folfox and nivolumab 4. Severe protein calorie malnutrition -secondary to malignancy -consult heat pump installer for TPN 5. Anasarca -secondary to advanced metastatic disease, lasix being held for now given hyponatremia -not enough ascites to safely tap currently 6. Hyponatremia -secondary to hypovolemia from lasix and poor oral intake -hold lasix for now 7. Anemia -secondary to malignancy -transfuse for hgb <7 8. Tachycardia -likely secondary to advanced malignancy -CTA PE negative from 11/05 9. Possible right middle opacification -no cough, fevers, white count currently -hold on antibiotics -low threshold to start She is being observed for poor pain control in an attempt to better control her symptoms. Ultimately she looks much more sick than just two weeks ago when I saw her with fatigue, pallor, abdominal distention, and anasarca. After discussion with surgery and [facility] oncology there is no further treatment options for cure and currently no other palliative options. She appears to be developing possible bowel obstruction and she can not tolerate any oral intake. Ultimately, she is hospice appropriate at this point and further discussions will be had to determine goals of care. She and family have been told that her disease is terminal, and they appeared emotional and surprised. I have discussed the history and plan with the patient and multiple family at bedside. I have discussed plan of care with bedside nurse and ED physician. CODE: Full Proxy: Sofia Woo, mother Time Spent With Patient Critical Care time: I spent a total of [] minutes of critical care time on this patient's care today; this time is exclusive of procedural time. Quality [facility] - Meds 'Current medications' to include all prescriptions, ngmu-mrh-worison products, herbals, cannabis/cannabidiol products, and vitamin/mineral/dietary (nutri tional) supplements. I have utilized all available resources to obtain, update, or review the patient?s current medications. [If Yes, STOP here]: Yes
[2022-11-07] MEDS: PANTOPRAZOLE 40 MG VIAL IV ×3 (01:17→20:33)
[2022-11-07] MEDS: HYDROMORPHONE 0.5 MG INJ 1 MG IV ×7 (01:17→22:46)
[2022-11-07 02:03] LABS: MRSA (Nasal) PCR Not Detected (Not Detect)
[2022-11-07] MEDS: LORazepam 2 MG/ML INJ 1 MG IV ×4 (04:26→21:57)
[2022-11-07 05:04] LABS: Add Manual Diff / Slide Review NO; Basophils Absolute Auto 0 /uL (0-100); Basophils Percent Auto 0.8 % (0-2); Eosinophils Absolute Auto 100 /uL (0-450); Eosinophils Percent Auto 3.2 % (2-4); Hematocrit 24.3 % (36-46); Hemoglobin 7.9 g/dL (12.0-16.0); Lymphocytes Absolute Auto 800 /uL (1100-4500); Lymphocytes Percent Auto 23.8 % (25-40); Mean Corpuscular HGB Conc 32.3 % (30-36); Mean Corpuscular Hemoglobin 24.1 PG (26-34); Mean Corpuscular Volume 74.7 fL (80-100); Monocytes Absolute Auto 300 /uL (0-900); Monocytes Percent Auto 7.4 % (3-14); Neutrophils Absolute Auto 2200 /uL (1500-7000); Neutrophils Percent Auto 64.8 % (50-75); Platelet Count 340 X10^3/uL (150-400); Red Blood Cell Count 3.25 X10^6/uL (4.0-5.2); Red Cell Distribution Width 16.4 % (11.6-14.8); White Blood Cell Count 3.4 X10^3/uL (4.5-11.0)
[2022-11-07 05:20] LABS: BUN Creatinine Ratio 28.6 (6-22); Blood Urea Nitrogen 16 mg/dL (7-17); Calcium 7.8 mg/dL (8.4-10.2); Carbon Dioxide 28 mmol/L (22-32); Chloride 98 mmol/L (98-107); Estimated Glomerular Filt Rate > 60 mL/min (>60); Glucose 86 mg/dL (70-100); HEMOLYSIS < 15 (0-50); Potassium 4.3 mmol/L (3.4-5.1); Sodium 129 mmol/L (137-145)
--- NOTE | 2022-11-07 05:54 | PC.NURSE ---
Admit/Night Note-Patient brought to ICU room 231 at 0030-Oriented x3, drowsy and forgetful. Medicated with IV Dilaudid for abdominal pain, IV lorazepam for anxiety, and IV Protonix as scheduled. NPO except ice chips. HR 120s-130s, other VSS. Voids small amount tea colored urine. 2-3+ BLE edema and anasarca, bowel sounds hypoactive, intermittent nausea without vomitting. Family at bedside, very attentive.
[2022-11-07] MEDS: ENOXAPARIN 40 MG/0.4 ML SYRINGE SUBCUT (08:40)
--- NOTE | 2022-11-07 11:41 | CM.DANOTE ---
Addendum entered by RICHARD Hamilton 11/07/22 15:25: ADD: Patient Navigator Lesa from [facility] kindly met bedside with pt and family and provided a quilt and care basket and introduced herself as well for support. Per , sublingual morphine has helped but still not fully managing her pain. Met bedside with pt and family and would like to move forward with referral to [facility] for pain and to see if pt could remain on TPN for quality of life. SW called [facility] to inquire about TPN and they confirm they have reviewed pt's referral and potential chance that they could consider keeping pt on TPN due to her unique situation of being so young and having 2 very young children (age 1 and 3) and requests Hospitalist call their Hospice Provider Dr. Ortega to discuss further. [facility] has worked closely with [facility] as well with some of their patients and could be a benefit if pt remains on TPN if approved through Hospice. SW provided Dr. Gomez with Dr. Hugo's cell phone and he will call to discuss pt situation further. Plan: SW to follow closely to determine if [facility] an option for pt at d/c to provide pain management and allow her to remain on TPN with [facility] to manage for comfort/quality of life vs return home with pain medications and Oncology to follow and [facility] for TPN and re-referral to RICHARD Anderson Original Note: Patient is a 27 yo female who was admitted on 11/06/22 for Gastric Adenocarcinoma complications. Pt has PW and LUI for insurance and her PCP is Yaneli Brewer. EMR was reviewed. Per MD, pt recently diagnosed metastatic, poorly differentiated gastric adenocarcinoma and had EGD and biopsy during last admission last month in October and found to have peritoneal mets and ascites. She had poor tolerance of oral diet, and was started on TPN. She has been using fentanyl, methadone, and morphine with minimal relief. General surgery was consulted and noted that there was no surgical intervention indicated. Oncology at was called and noted that there is no further medical treatment for her, and that her condition is ultimately terminal. She is admitted for pain control and TPN as pt is not absorbing anything orally and will attempt sublingual morphine. Pt may have partial SBO vs mass and no surgical intervention at this time. MD states that he plans to have a more lengthy Goals of Care discussion with pt and family today as he will be trying to promote Hospice as a better Palliative Pain Management approach as pt also terminal and Hospice likely will have better ways to manage her pain and increase quality of life. MD currently anticipates continuing TPN for comfort but also to meet pt's desire for prolonging life for her young children. PERLA called [facility] and faxed clinicals and updated on possible continuation of TPN and Goals of Care discussion to happen. [facility] will continue to follow and call tomorrow Fri for update. SW received a call from [facility] stating they have the referral from pt's recent discharge over the weekend on 11/02/22 but have not been able to open pt to service yet as she ended up in the ED twice between discharge and this admission. [facility] had been the only agency that could accept pt's insurance and they will need new referral and F2F if pt discharges home with HH. PERLA faxed [facility] new referral and called and discussed that pt and family still need to have Goals of Care and likely need for pain management and request they not call pt/family yet but check in tomorrow to determine decision on d/c plan. Request review of pt's clinicals towards possible recommendations for better pain control while in the hospital and at discharge. Berna states she will discuss this case with intake workers and they likely could consult their Hospice Providers as well. Plan: PERLA to follow closely for Goals of Care discussion with pt/family and MD towards determining possible Hospice at d/c for pain management and end of life care and if TPN and [facility] still needed and [facility] referral if pt not wanting Hospice yet at this time. RICHARD Hamilton Discharge Planning/Care Management CM Discharge Assessment Start: 11/07/22 11:30 Freq: Status: Active Protocol: Document 11/07/22 11:31 BF (Rec: 11/07/22 11:39 BF [id number]) Discharge Planning Assessment Assigned Craps Manager RICHARD Carvajal DPOA/Assigned Designee Name mother Sofia informally Contact Information [phone] Advance Directives? No Advance Directives on File No History Provided By Patient,Family Member,Medical Record Has Patient been admitted in last 30 Yes days? Comment was recently discharged on to home with [facility] for TPN and referral to [facility]. Prior Living Arrangements Apartment/Condo Household Members children,family Type of transporation used prior to Drives own vehicle admit Comment Has not been driving since her dx with cancer and weakness since her last admission last month. Independent with ADL's Yes: needing more assist now, fatigued Is patient alert and oriented? Yes: drowsy, pain meds Needs Assistance With Managing Medications,Home Chores / Shopping Caregiver for Another Yes: 2 young children at home Community Services used prior to IV Therapy admission: Comment [facility] has been managing her TPN the past week since discharge home Patient/Family Preference Home with Home Health Comment Pending Goals of Care discussion, possible home with HH vs Hospice care Barriers to Discharge No Discharge Plan Home with Home Health Transportation Arrangement Family to provide transportation Referrals Initiated Home Health Additional Comment [facility] referral previously made, only agency that would take her insurance but they have not been able to schedule to open pt to service yet, would need new referral. [facility] following for managing TPN. Review Status In Process Please Provide Date Initial DC 11/07/22 Assessment Was Performed Next Review Type Continued Stay Review
[2022-11-07] MEDS: MORPHINE 10 MG/0.5 ML ORAL SYRINGE PO ×7 (12:18→23:58)
--- NOTE | 2022-11-07 15:15 | DIET.CONS2 ---
Dietary Inpatient Consultation Note Admission Date: 11/06/2022 23:35 Pt with 2-3+ edema to BLE, ascites and anasarca. Providing 1L TPN this evening as pt with fluid overload. Hospitalist/Pharmacy/RD to reevaluate tomorrow. Diet: 11/07/22 00:48 NPO Diet Diet Modifications: NPO Type: NPO except for Ice Chips 11/07/22 Lunch General (Regular) Diet Diet Modifications: Electronically Signed by: Jolie Dudlye 11/07/22 15:15 Clinical Dietitian [address] [address]
[2022-11-07] MEDS: TRACE ELEMENTS IV (18:00)
[2022-11-07] MEDS: CALCIUM IV (18:00)
[2022-11-07] MEDS: DEXT IV (18:00)
[2022-11-07] MEDS: [UNRECOGNIZED DRUG - OTHER] IV (18:00)
[2022-11-07] MEDS: LYTES IV (18:00)
[2022-11-07] MEDS: METHADONE INTENSOL 10 MG/ML ORAL.CONC 5 MG PO (21:14)
[2022-11-07] MEDS: ONDANSETRON 4 MG/2 ML INJ IV (21:21)
[2022-11-08] VITALS (7 sets, daily range): BP systolic 137–143; BP diastolic 69–79; PULSE 100–139; RESP 17–18; TEMP 36.3–36.9; O2SAT 97–100
[2022-11-08] MEDS: HYDROMORPHONE 0.5 MG INJ 1 MG IV ×5 (00:54→14:01)
[2022-11-08] MEDS: METHADONE INTENSOL 10 MG/ML ORAL.CONC 5 MG PO ×3 (05:22→21:14)
[2022-11-08 05:43] LABS: Triglycerides 200 mg/dL (35-150)
[2022-11-08 05:50] LABS: Prealbumin 12.2 mg/dL (17.6-36.0)
[2022-11-08] MEDS: MORPHINE 10 MG/0.5 ML ORAL SYRINGE PO (07:29)
[2022-11-08] MEDS: ENOXAPARIN 40 MG/0.4 ML SYRINGE SUBCUT (08:40)
[2022-11-08] MEDS: MORPHINE 10 MG/0.5 ML ORAL SYRINGE 20 MG PO ×6 (08:40→23:59)
[2022-11-08] MEDS: PANTOPRAZOLE 40 MG VIAL IV ×2 (08:41→21:14)
[2022-11-08] MEDS: fentaNYL 50 MCG/PATCH TOP (08:41)
[2022-11-08] MEDS: ONDANSETRON 4 MG/2 ML INJ IV (09:22)
--- NOTE | 2022-11-08 10:33 | DIET.PN1 ---
Dietary Progress Note Assessment: Currently on 1L TPN. Some concerns for fluid overload upon admission and has had h/o fluid retention while admitted last visit. In rounds today, hospitalist does not think TPN will exacerbate fluids at this time. She was tolerating 2L prior to d/c this week. Plan to increase TPN to meet nutrition needs. Triglycerides elevated at 200. Plans to receive lipids today. Discussed with pharmacy reevaluation of TG prior to Friday lipids, if pt still admitted. Ht: 160.02 cm Wt: 78.3 kg BMI: 30.5 Last BM: 11/06/22 (11/07/22 01:24) MNA: 7 Gurdeep Score: 19 Diet: 11/07/22 00:48 NPO Diet Diet Modifications: NPO Type: NPO except for Ice Chips 11/07/22 Lunch General (Regular) Diet Diet Modifications: Labs: RBC 3.25 X10^6/uL (4.0-5.2) L 11/07/22 04:30 Hgb 7.9 g/dL (12.0-16.0) L 11/07/22 04:30 Hct 24.3 % (36-46) L 11/07/22 04:30 Creatinine 0.56 mg/dL (0.52-1.04) 11/07/22 04:30 Nutrition Diagnosis: Severe acute protein calorie malnutrition r/t inability to eat d/t potential SBO, gastric discomfort, pain and predicted increased kcal needs with metastatic cancer aeb severe weight loss of 7.3% over one month, GI symptoms of nausea and anorexia for 2 months prior to last admission, and inadequate PO. EER: 1800-1960kcal (23-25kcal/kg per BMI) 80-117g PRO (1-1.5g/kg per malnutrition) Interventions: TPN increase to 1.5L evaluate. This meets 85% of kcal needs with lipids and 64-95% of PRO needs. Monitoring/Evaluations: Will continue to follow. RD f/u 3 days. Electronically Signed by: Catalina Schuler 11/08/22 10:33 Clinical Dietitian [address] [address]
--- NOTE | 2022-11-08 11:09 | DI.US.S_ITS ---
PROCEDURE: US PERIPH VENOUS LOW EXTREM BI INDICATIONS: Swelling TECHNIQUE: Real-time imaging, as well as color and pulse Doppler interrogation, were performed of the deep veins of both legs from the inguinal ligament to the popliteal fossa. COMPARISON: [facility], CR, XR CHEST 1V, 11/08/2022, 11:20. FINDINGS: Right: The common femoral, femoral and popliteal veins are normally compressible, and free of intraluminal thrombus. Color and pulse Doppler demonstrate normal phasic intravascular flow. There is normal augmentation response to distal compression maneuver. Left: The common femoral, femoral and popliteal veins are normally compressible, and free of intraluminal thrombus. Color and pulse Doppler demonstrate normal phasic intravascular flow. There is normal augmentation response to distal compression maneuver. Soft tissue edema can be seen involving both lower extremities. IMPRESSION: Negative for deep venous thrombosis. Dictated by: Santi Nieves M.D. on 11/08/2022 at 11:34 Approved by: Santi Nieves M.D. on 11/08/2022 at 11:34
--- NOTE | 2022-11-08 11:22 | DI.RAD.S_ITS ---
PROCEDURE: XR CHEST 1V INDICATIONS: chest pain TECHNIQUE: One view of the chest was acquired. COMPARISON: [facility], CR, XR CHEST FOR PICC 1V, 11/05/2022, 17:01. [facility], CR, XR CHEST 1V, 11/05/2022, 16:06. FINDINGS: Surgical changes and devices: Right chest wall port. Left upper extremity approach PICC tip projects over the cavoatrial junction. Lungs and pleura: Lungs are clear. No pleural effusions or pneumothorax. Mediastinum: Mediastinal contours appear normal. Heart size is normal. Bones and chest wall: No suspicious bony lesions. Overlying soft tissues appear unremarkable. IMPRESSION: No acute cardiopulmonary process. Dictated by: Aryan Carrera M.D. on 11/08/2022 at 11:48 Approved by: Aryan Carrera M.D. on 11/08/2022 at 11:49
--- NOTE | 2022-11-08 11:38 | CM.DPC ---
Addendum entered by RICHARD Hamilton 11/08/22 15:26: ADD: Call from [facility] at [facility], they have confirmed that they can accept pt to manage her pain and can accept her with TPN and will continue to coordinate with [facility] and approved one week of TPN once they open her to service and then will reassess to determine if pt is still benefiting from TPN and will continue TPN or discontinue pending her progress. Hospice has pt on their schedule to open her to service on November 12 between [id number]. SW faxed pt's EKG for review and they just need d/c summary faxed at discharge. Per , hopeful to get pt home by tomorrow 11/09/22 if stable and pain managed so she can be with her family and young kids at home and pt hopeful to be home soon as well. MD will bridge pt's pain meds and write for TPN for [facility] to continue to follow, pt remains on same TPN formula as before. PERLA faxed updated clinicals to [facility] with Manager Transition note, labs, orders, EKG, med list to review and spoke to Pharmacist and she has some concerns with pt d/c home over the weekend but with the faxed clinicals above she will alert w/e Pharmacist of possible d/c Sat. She confirms they will just need the d/c summary at discharge faxed with documentation of the TPN formula and [facility] to manage at d/c. Plan: SW to follow closely for plan of d/c home with family and to fax [facility] the d/c summary with note above and to fax [facility] the d/c summary at discharge and Hospice will open 10/15/22 [id number] to continue with pain management and coordination with TPN needs. RICHARD Hamilton Original Note: DCP Cont: Per , had doc to doc discussion with Hospice Provider Dr. Hugo yesterday afternoon 11/07/22 regarding recommendations for pain management and if they could accept pt on TPN for comfort/quality of life. Pt was hopeful for home today if possible and seemed somewhat pain managed, but per now having some chest pains and likely not stable for d/c yet today. requests ongoing coordination with [facility] to determine if they can accept pt at d/c primarily for pain management but also with TPN continuing. PERLA called Aurora at [facility] and she will call [facility] next to request a bid for the cost of the TPN to determine if they can approve the cost and will further discuss with Dr. Hugo and the care team to confirm if they can accept pt or not. They do not have an opening until next week but MD states he can bridge her pain meds and [facility] would continue to manage TPN while awaiting Hospice if they can accept. Otherwise, Oncologist Dr. Mario would likely need to manage her pain medications if Hospice cannot accept and they are closed today Friday and through the weekend. RICHARD Hamilton
--- NOTE | 2022-11-08 16:06 | P.PN_ITS ---
Subjective Subjective Interval history: 27 F with metastatic gastric cancer, on TPN admitted for pain control. Not enough fluid for paracentesis on ultrasound today. Pain control continues to be difficult. Discussed with hospice providers yesterday, can open with hospice on Friday of next week, but requiring frequent IV dilaudid. Started on methadone liquid yesterday, and fentanyl patch with sublingual morphine prn. She did develop some chest pain today, EKG without ischemic changes and CXR was unremarkable. Exam Vital Signs (past 8 hours): Oxygen Delivery Method Room Air Oxygen Flow Rate 0 Narrative Exam Narrative: GEN: fatigued, lethargic HEENT: dry mucous membranes, PERRL NECK: trachea midline, no JVD PULM: clear bilaterally, no wheezes, rhonchi, rales CV: tachycardic no murmurs ABD: distended, tender diffusely, but especially epigastric, decreased bowel sounds EXT: warm and well perfused with no edema NEURO: awake but fatigued, no focal deficits Objective Labs 11/07/22 04:30 11/07/22 04:30 Labs: Laboratory Results - last 24 hr 11/08/22 05:15 Phosphorus 4.0 Magnesium 2.0 Prealbumin 12.2 L Triglycerides 200 H PFSH Medical History Healthy adult Family History Father Cancer Diabetes mellitus Grandmother Diabetes mellitus Father Cancer Aunt Cancer Social History household members: family and children Smoking Status: Former smoker Assessment & Plan Assessment & Plan narrative: 1. Possible small bowel obstruction -concerning for advancing cancer -per general surgery no surgical indication -okay to trial diet, but she is not tolerating much at baseline -continue TPN, okay to increase fluid amount 2. Refractory abdominal pain due to her underlying malignancy -secondary to neoplasm, continues to have ascites but not enough for paracentesis and unlikely contributory to pain at this time -Discussed with hospice provider Dr. Hugo They recommend liquid methadone 10 mg TID, with morphine SL at least 20 mg as needed. They recommend removing fentanyl patch ideally, or if not tolerating methadone increase to 100 mcg patch at least. Added 5 mg TID methadone yesterday, does take a few days to see any effe ct so will continue with 50 mcg fentanyl. Increased SL morphine to 20 mg q1h prn and also has dilaudid 1 mg q1 prn which she is still requiring. -continue ativan, pascual. Added scopalamine patch today. -added lidocaine patch, stop if no additional benefit. 3. Metastatic gastric adenocarcinoma -not curative -did recently start folfox and nivolumab with oncology. 4. Severe protein calorie malnutrition -secondary to malignancy -consult wildlife refuge manager for TPN -TPN per pharmacy 5. Anasarca -secondary to advanced metastatic disease, lasix being held for now given hyponatremia -not enough ascites to safely tap currently 6. Hyponatremia -secondary to hypovolemia from lasix and poor oral intake -hold lasix for now 7. Anemia -secondary to malignancy -transfuse for hgb <7 8. Tachycardia -likely secondary to advanced malignancy -CTA PE negative from 11/05 9. Possible right middle opacification -no cough, fevers, white count currently -hold on antibiotics -low threshold to start Dispo: Hopeful with discharge home with hospice primarily for pain control services, with goal of lengthening functional life span as much as possible. Hospice states they will open this coming Friday for the patient. Goal is home as quickly as possible with adequate pain control. Hopefully in the next couple of days. CODE: Full Proxy: Sofia Woo, mother Time Spent With Patient Critical Care time: I spent a total of [] minutes of critical care time on this patient's care today; this time is exclusive of procedural time. Quality VTE Deep Vein Thrombosis/Pulmonary Embolism Present on Admission: No
[2022-11-08] MEDS: LIDOCAINE PATCH 1 EACH ADH..PATCH TOP (16:19)
[2022-11-08] MEDS: SCOPOLAMINE 1 PATCH TOP (16:25)
[2022-11-08] MEDS: diphenhydrAMINE 50 MG/ML VIAL 25 MG IV ×2 (17:57→22:41)
[2022-11-08] MEDS: HYDROMORPHONE 1 MG INJ IV ×2 (18:27→23:14)
[2022-11-08] MEDS: LYTES IV (18:35)
[2022-11-08] MEDS: MULTIVITAMIN IV (18:35)
[2022-11-08] MEDS: TRACE ELEMENTS IV (18:35)
[2022-11-08] MEDS: FAT EMULSIONS 50 GM/250 ML EMULSION IV (18:35)
[2022-11-08] MEDS: DEXT IV (18:35)
[2022-11-08] MEDS: CALCIUM IV (18:35)
[2022-11-08] MEDS: [UNRECOGNIZED DRUG - OTHER] IV (18:35)
[2022-11-08] MEDS: hydrOXYzine pamoate 25 MG CAPSULE PO (23:58)
[2022-11-09] MEDS: HYDROMORPHONE 1 MG INJ IV ×3 (00:13→11:49)
[2022-11-09 04:58] LABS: Add Manual Diff / Slide Review NO; Basophils Absolute Auto 0 /uL (0-100); Basophils Percent Auto 0.6 % (0-2); Eosinophils Absolute Auto 0 /uL (0-450); Eosinophils Percent Auto 1.4 % (2-4); Hematocrit 23.3 % (36-46); Hemoglobin 7.6 g/dL (12.0-16.0); Lymphocytes Absolute Auto 500 /uL (1100-4500); Lymphocytes Percent Auto 14.6 % (25-40); Mean Corpuscular HGB Conc 32.6 % (30-36); Mean Corpuscular Hemoglobin 24.2 PG (26-34); Mean Corpuscular Volume 74.2 fL (80-100); Monocytes Absolute Auto 300 /uL (0-900); Monocytes Percent Auto 8.6 % (3-14); Neutrophils Absolute Auto 2500 /uL (1500-7000); Neutrophils Percent Auto 74.8 % (50-75); Platelet Count 359 X10^3/uL (150-400); Red Blood Cell Count 3.14 X10^6/uL (4.0-5.2); Red Cell Distribution Width 16.9 % (11.6-14.8); White Blood Cell Count 3.4 X10^3/uL (4.5-11.0)
[2022-11-09] MEDS: METHADONE INTENSOL 10 MG/ML ORAL.CONC 5 MG PO (05:03)
[2022-11-09] MEDS: ONDANSETRON 4 MG/2 ML INJ IV ×2 (05:03→20:59)
[2022-11-09 05:07] LABS: Alanine Aminotransferase 17 IU/L (<35); Albumin 2.6 g/dL (3.5-5.0); Albumin Globulin Ratio 0.9 (1.0-2.8); Alkaline Phosphatase 157 U/L (38-126); Aspartate Aminotransferase 22 IU/L (14-36); BUN Creatinine Ratio 26.4 (6-22); Bilirubin Total 0.7 mg/dL (0.2-1.3); Blood Urea Nitrogen 14 mg/dL (7-17); Calcium 7.8 mg/dL (8.4-10.2); Carbon Dioxide 25 mmol/L (22-32); Chloride 98 mmol/L (98-107); Estimated Glomerular Filt Rate > 60 mL/min (>60); Glucose 133 mg/dL (70-100); HEMOLYSIS < 15 (0-50); Magnesium 1.9 mg/dL (1.6-2.3); Phosphorous 4.7 mg/dL (2.5-4.5); Potassium 4.9 mmol/L (3.4-5.1); Sodium 129 mmol/L (137-145); Total Protein 5.6 g/dL (6.3-8.2)
[2022-11-09 07:00] VITALS: O2SAT 94
[2022-11-09] MEDS: MORPHINE 10 MG/0.5 ML ORAL SYRINGE 20 MG PO ×2 (08:43→18:26)
[2022-11-09] MEDS: ENOXAPARIN 40 MG/0.4 ML SYRINGE SUBCUT (08:44)
[2022-11-09] MEDS: PANTOPRAZOLE 40 MG VIAL IV ×2 (08:44→20:59)
[2022-11-09] MEDS: LIDOCAINE PATCH 1 EACH ADH..PATCH TOP (08:45)
[2022-11-09] MEDS: hydrOXYzine pamoate 25 MG CAPSULE PO ×2 (08:54→18:26)
[2022-11-09] MEDS: diphenhydrAMINE 50 MG/ML VIAL 25 MG IV ×2 (08:54→19:39)
--- NOTE | 2022-11-09 08:54 | PM.PN.1 ---
Subjective Subjective Interval history: 27 F with metastatic gastric cancer, on TPN admitted for pain control. Not enough fluid for paracentesis on ultrasound consistently. Pain control continues to be difficult. Discussed with hospice providers yesterday, can open with hospice on Friday of next week, but requiring frequent IV dilaudid. Started on methadone liquid yesterday and has benefitted so will increase dose, and fentanyl patch with sublingual morphine prn. Vistaril prn for itching. Exam Vital Signs (past 8 hours): - 11/09/22 07:00 11/09/22 07:00 Pulse Oximetry 94 Oxygen Delivery Method Room Air Room Air Oxygen Delivery Method Room Air Oxygen Flow Rate 0 Narrative Exam Narrative: GEN: alert and energy good HEENT: dry mucous membranes, PERRL NECK: trachea midline, no JVD PULM: clear bilaterally, no wheezes, rhonchi, rales CV: tachycardic no murmurs ABD: distended, tender diffusely, but especially epigastric, decreased bowel sounds EXT: warm and well perfused with no edema NEURO: awake, no focal deficits Objective Labs 11/09/22 04:48 11/09/22 04:48 Labs: Laboratory Results - last 24 hr 11/09/22 11/09/22 04:48 04:48 WBC 3.4 L RBC 3.14 L Hgb 7.6 L Hct 23.3 L MCV 74.2 L MCH 24.2 L MCHC 32.6 RDW 16.9 H Plt Count 359 Neut % (Auto) 74.8 Lymph % (Auto) 14.6 L [place] % (Auto) 8.6 Eos % (Auto) 1.4 L Baso % (Auto) 0.6 Neut # (Auto) 2500 Lymph # (Auto) 500 L [place] # (Auto) 300 Eos # (Auto) 0 Baso # (Auto) 0 Sodium 129 L Potassium 4.9 Chloride 98 Carbon Dioxide 25 BUN 14 Creatinine 0.53 Estimated GFR > 60 BUN/Creatinine Ratio 26.4 H Glucose 133 H Calcium 7.8 L Phosphorus 4.7 H Magnesium 1.9 Total Bilirubin 0.7 AST 22 ALT 17 Alkaline Phosphatase 157 H Total Protein 5.6 L Albumin 2.6 L Globulin 3.0 Albumin/Globulin Ratio 0.9 L PFSH Medical History Healthy adult Family History Father Cancer Diabetes mellitus Grandmother Diabetes mellitus Father Cancer Aunt Cancer Social History household members: family and children Smoking Status: Former smoker Assessment & Plan Assessment & Plan narrative: 1. Possible small bowel obstruction -concerning for advancing cancer -per general surgery no surgical indication -okay to trial diet, but she is not tolerating much at baseline -continue TPN, okay to increase fluid amount 2. Refractory abdominal pain due to her underlying malignancy -secondary to neoplasm, continues to have ascites but not enough for paracentesis and unlikely contributory to pain at this time -Previous hospitalist discussed with hospice provider Dr. Hugo They recommend liquid methadone 10 mg TID and patient was started on 5 mg qh8, tolerating well - will increase to 20 mg q8h, with morphine SL at least 20 mg as needed. Hospice recommend removing fentanyl patch ideally and will do this if can increase methadone to cover pain. Will continue with 50 mcg fentanyl. Increased SL morphine to 20 mg q1h prn and also has dilaudid 1 mg q1 prn which she is still requiring. -continue ativan, zofran, vistaril. Added scopalamine patch yesterday. -added yesterday lidocaine patch, stop if no additional benefit. 3. Metastatic gastric adenocarcinoma -not curative -did recently start folfox and nivolumab with oncology. Will eventually have further palliative chemotherapy 4. Severe protein calorie malnutrition -secondary to malignancy -consult general accountant for TPN -TPN per pharmacy, continue 5. Anasarca -secondary to advanced metastatic disease, lasix being held for now given hyponatremia -not enough ascites to safely tap currently 6. Hyponatremia -secondary to hypovolemia from lasix and poor oral intake -hold lasix for now - sodium stable, follow tomorrow 7. Anemia -secondary to malignancy, stable -transfuse for hgb <7 8. Tachycardia -likely secondary to advanced malignancy -CTA PE negative from 11/05 9. Possible right middle opacification -no cough, fevers, white count currently -hold on antibiotics -low threshold to start Dispo: Hopeful with discharge home with hospice primarily for pain control services, with goal of lengthening functional life span as much as possible. Hospice states they will open this coming Friday for the patient. Goal is home as quickly as possible with adequate pain control. Hopefully in the next couple of days. CODE: Full Proxy: Sofia Woo, mother Time Spent With Patient Critical Care time: I spent a total of [] minutes of critical care time on this patient's care today; this time is exclusive of procedural time. Quality VTE Deep Vein Thrombosis/Pulmonary Embolism Present on Admission: No
[2022-11-09 09:00] VITALS: BP 137/78; PULSE 120; RESP 19; TEMP 36.1; O2SAT 96
[2022-11-09] MEDS: METHADONE 5 MG TABLET 15 MG PO (09:18)
[2022-11-09] MEDS: METHADONE 10 MG TABLET 20 MG PO ×2 (14:45→20:59)
[2022-11-09] MEDS: CALCIUM IV (18:14)
[2022-11-09] MEDS: DEXT IV (18:14)
[2022-11-09] MEDS: SODIUM CHLORIDE IV (18:14)
[2022-11-09] MEDS: LYTES IV (18:14)
[2022-11-09] MEDS: [UNRECOGNIZED DRUG - OTHER] IV (18:14)
[2022-11-09] MEDS: LORazepam 2 MG/ML INJ 1 MG IV (19:42)
[2022-11-09 20:14] VITALS: BP 131/72; PULSE 130; RESP 15; TEMP 36.8; O2SAT 99
[2022-11-10] MEDS: hydrOXYzine pamoate 25 MG CAPSULE PO ×3 (00:20→18:07)
[2022-11-10] MEDS: HYDROMORPHONE 1 MG INJ IV ×2 (02:06→13:07)
[2022-11-10] MEDS: METHADONE 10 MG TABLET 20 MG PO ×3 (06:19→21:45)
[2022-11-10] MEDS: ONDANSETRON 4 MG/2 ML INJ IV ×3 (06:27→21:45)
[2022-11-10 06:34] LABS: Add Manual Diff / Slide Review NO; Basophils Absolute Auto 0 /uL (0-100); Basophils Percent Auto 0.6 % (0-2); Eosinophils Absolute Auto 100 /uL (0-450); Eosinophils Percent Auto 3.5 % (2-4); Hematocrit 22.8 % (36-46); Hemoglobin 7.1 g/dL (12.0-16.0); Lymphocytes Absolute Auto 600 /uL (1100-4500); Lymphocytes Percent Auto 19.1 % (25-40); Mean Corpuscular HGB Conc 31.3 % (30-36); Mean Corpuscular Hemoglobin 23.8 PG (26-34); Monocytes Absolute Auto 400 /uL (0-900); Monocytes Percent Auto 12.9 % (3-14); Neutrophils Absolute Auto 1900 /uL (1500-7000); Neutrophils Percent Auto 63.9 % (50-75); Platelet Count 328 X10^3/uL (150-400); Red Cell Distribution Width 17.1 % (11.6-14.8); White Blood Cell Count 2.9 X10^3/uL (4.5-11.0)
[2022-11-10 06:55] LABS: Alanine Aminotransferase 16 IU/L (<35); Albumin 2.5 g/dL (3.5-5.0); Albumin Globulin Ratio 0.9 (1.0-2.8); Alkaline Phosphatase 145 U/L (38-126); Aspartate Aminotransferase 23 IU/L (14-36); BUN Creatinine Ratio 32.1 (6-22); Bilirubin Total 0.7 mg/dL (0.2-1.3); Blood Urea Nitrogen 17 mg/dL (7-17); Calcium 7.7 mg/dL (8.4-10.2); Carbon Dioxide 28 mmol/L (22-32); Chloride 99 mmol/L (98-107); Estimated Glomerular Filt Rate > 60 mL/min (>60); Globulin 2.9 g/dL (1.7-4.1); Glucose 122 mg/dL (70-100); HEMOLYSIS < 15 (0-50); Phosphorous 4.4 mg/dL (2.5-4.5); Potassium 4.9 mmol/L (3.4-5.1); Sodium 128 mmol/L (137-145); Total Protein 5.4 g/dL (6.3-8.2)
[2022-11-10 07:00] VITALS: O2SAT 93
[2022-11-10 07:40] VITALS: BP 125/80; PULSE 119; RESP 20; TEMP 36.5; O2SAT 100
--- NOTE | 2022-11-10 08:30 | P.PN_ITS ---
Subjective Subjective Interval history: 27 F with metastatic gastric cancer, on TPN admitted for pain control. Not enough fluid for paracentesis on ultrasound consistently. Pain control continues to be difficult. Discussed with hospice providers yesterday, can open with hospice on Friday of next week, but requiring frequent IV dilaudid. Started on methadone liquid yesterday and has benefitted so increased dose yesterday, and fentanyl patch with sublingual morphine prn. Vistaril prn for itching. With the increased dose of methadone, the patient only one dose for Dilaudid for breakthrough pain. Exam Vital Signs (past 8 hours): Oxygen Delivery Method Room Air Oxygen Flow Rate 0 Narrative Exam Narrative: GEN: alert and energy good HEENT: dry mucous membranes, PERRL NECK: trachea midline, no JVD PULM: clear bilaterally, no wheezes, rhonchi, rales CV: tachycardic no murmurs ABD: distended, tender diffusely, but especially epigastric, decreased bowel sounds EXT: warm and well perfused with no edema NEURO: awake, no focal deficits Objective Labs 11/10/22 06:06 11/10/22 06:06 Labs: Laboratory Results - last 24 hr 11/10/22 11/10/22 06:06 06:06 WBC 2.9 L RBC 3.00 L Hgb 7.1 L Hct 22.8 L MCV 76.0 L MCH 23.8 L MCHC 31.3 RDW 17.1 H Plt Count 328 Neut % (Auto) 63.9 Lymph % (Auto) 19.1 L [place] % (Auto) 12.9 Eos % (Auto) 3.5 Baso % (Auto) 0.6 Neut # (Auto) 1900 Lymph # (Auto) 600 L [place] # (Auto) 400 Eos # (Auto) 100 Baso # (Auto) 0 Sodium 128 L Potassium 4.9 Chloride 99 Carbon Dioxide 28 BUN 17 Creatinine 0.53 Estimated GFR > 60 BUN/Creatinine Ratio 32.1 H Glucose 122 H Calcium 7.7 L Phosphorus 4.4 Magnesium 2.0 Total Bilirubin 0.7 AST 23 ALT 16 Alkaline Phosphatase 145 H Total Protein 5.4 L Albumin 2.5 L Globulin 2.9 Albumin/Globulin Ratio 0.9 L PFSH Medical History Healthy adult Family History Father Cancer Diabetes mellitus Grandmother Diabetes mellitus Father Cancer Aunt Cancer Social History household members: family and children Smoking Status: Former smoker Assessment & Plan Assessment & Plan narrative: 1. Possible small bowel obstruction -concerning for advancing cancer -per general surgery no surgical indication -okay to trial diet, but she is not tolerating much at baseline -continue TPN, okay to increase fluid amount 2. Refractory abdominal pain due to her underlying malignancy -secondary to neoplasm, continues to have ascites but not enough for paracentesis and unlikely contributory to pain at this time -Previous hospitalist discussed with hospice provider Dr. Hugo They recommend liquid methadone 10 mg TID and patient was started on 5 mg qh8, tolerating well - increased to 20 mg q8h and also tolerating well, with morphine SL at least 20 mg as needed. Hospice recommend removing fentanyl patch ideally and will do this tomorrow and increase methadone dose again.? Will continue with 50 mcg fentanyl. Increased SL morphine to 20 mg q1h prn and also has dilaudid 1 mg q1 prn which she is still requiring only once yesterday. -continue ativan, zofran, vistaril. Added scopalamine patch yesterday. -added yesterday lidocaine patch, stop if no additional benefit. 3. Metastatic gastric adenocarcinoma -not curative -did recently start folfox and nivolumab with oncology. Will eventually have further palliative chemotherapy 4. Severe protein calorie malnutrition -secondary to malignancy -consult disability insurance claim examiner for TPN -TPN per pharmacy, continue 5. Anasarca -secondary to advanced metastatic disease, lasix being held for now given hyponatremia -not enough ascites to safely tap currently 6. Hyponatremia -secondary to hypovolemia from lasix and poor oral intake -hold lasix for now - sodium stable, follow tomorrow 7. Anemia -secondary to malignancy, stable -transfuse only for hgb <7 8. Tachycardia -likely secondary to advanced malignancy -CTA PE negative from 11/05 9. Possible right middle opacification -no cough, fevers, white count currently -hold on antibiotics -low threshold to start Dispo: Hopeful with discharge home with hospice primarily for pain control services, with goal of lengthening functional life span as much as possible. Hospice states they will open this coming Friday for the patient. Goal is home as quickly as possible with adequate pain control. Hopefully tomorrow if possible. CODE: Full Proxy: Sofia Woo, mother Time Spent With Patient Critical Care time: I spent a total of [] minutes of critical care time on this patient's care today; this time is exclusive of procedural time. Quality VTE Deep Vein Thrombosis/Pulmonary Embolism Present on Admission: No
[2022-11-10] MEDS: ENOXAPARIN 40 MG/0.4 ML SYRINGE SUBCUT (09:33)
[2022-11-10] MEDS: LIDOCAINE PATCH 1 EACH ADH..PATCH TOP (09:33)
[2022-11-10] MEDS: MORPHINE 10 MG/0.5 ML ORAL SYRINGE 20 MG PO (11:48)
--- NOTE | 2022-11-10 15:35 | CM.DPC ---
DCP Cont: Per MD, pt seems to have pain better managed with oral pain medications and will attempt to get pt off IV dilaudid for break through pain and transition pt off fentanyl patch per [facility] MD recommendations and if pt well managed overnight then plan is to d/c home tomorrow Friday. Pharmacist confirms that she has spoken to [facility] Pharmacist and adjusting pt's TPN for dose that she will discharge on and provided this information to MD and MD aware that triglicerides needed prior to d/c and updated labs and to write the orders in discharge summary for [facility] to manage. Plan: SW to follow for likely plan of d/c home Friday with family and will need to fax updated labs and d/c summary to both [facility] and [facility] with Hospice to open this week 11/12/22 between [id number]. RICHARD Hamilton
[2022-11-10] MEDS: fentaNYL 50 MCG/PATCH TOP (16:53)
[2022-11-10] MEDS: CALCIUM IV (17:44)
[2022-11-10] MEDS: [UNRECOGNIZED DRUG - OTHER] IV (17:44)
[2022-11-10] MEDS: SODIUM CHLORIDE IV (17:44)
[2022-11-10] MEDS: DEXT IV (17:44)
[2022-11-10] MEDS: LYTES IV (17:44)
[2022-11-10 20:00] VITALS: O2SAT 100
[2022-11-10 21:33] VITALS: BP 149/67; PULSE 140; RESP 19; TEMP 36.6; O2SAT 100
[2022-11-10] MEDS: LORazepam 2 MG/ML INJ 1 MG IV (21:45)
[2022-11-10] MEDS: PANTOPRAZOLE DR 40 MG TABLET PO (22:06)
[2022-11-11] MEDS: diphenhydrAMINE 50 MG/ML VIAL 25 MG IV (00:27)
[2022-11-11] MEDS: METHADONE 10 MG TABLET 20 MG PO ×2 (05:52→14:05)
[2022-11-11] MEDS: PANTOPRAZOLE DR 40 MG TABLET PO (06:21)
[2022-11-11 06:36] LABS: Alanine Aminotransferase 15 IU/L (<35); Albumin 2.5 g/dL (3.5-5.0); Albumin Globulin Ratio 0.8 (1.0-2.8); Alkaline Phosphatase 140 U/L (38-126); Aspartate Aminotransferase 22 IU/L (14-36); BUN Creatinine Ratio 30.8 (6-22); Bilirubin Total 0.9 mg/dL (0.2-1.3); Blood Urea Nitrogen 16 mg/dL (7-17); Calcium 7.5 mg/dL (8.4-10.2); Carbon Dioxide 28 mmol/L (22-32); Chloride 98 mmol/L (98-107); Estimated Glomerular Filt Rate > 60 mL/min (>60); Glucose 109 mg/dL (70-100); HEMOLYSIS < 15 (0-50); Potassium 4.2 mmol/L (3.4-5.1); Sodium 130 mmol/L (137-145); Total Protein 5.5 g/dL (6.3-8.2)
[2022-11-11 06:37] LABS: Triglycerides 188 mg/dL (35-150)
[2022-11-11 06:38] LABS: Add Manual Diff / Slide Review NO; Basophils Absolute Auto 0 /uL (0-100); Basophils Percent Auto 0.9 % (0-2); Eosinophils Absolute Auto 100 /uL (0-450); Eosinophils Percent Auto 2.7 % (2-4); Lymphocytes Absolute Auto 800 /uL (1100-4500); Lymphocytes Percent Auto 24.4 % (25-40); Mean Corpuscular HGB Conc 31.8 % (30-36); Mean Corpuscular Hemoglobin 23.8 PG (26-34); Mean Corpuscular Volume 74.9 fL (80-100); Monocytes Absolute Auto 500 /uL (0-900); Monocytes Percent Auto 15.5 % (3-14); Neutrophils Absolute Auto 1800 /uL (1500-7000); Neutrophils Percent Auto 56.5 % (50-75); Platelet Count 302 X10^3/uL (150-400); Red Blood Cell Count 2.94 X10^6/uL (4.0-5.2); Red Cell Distribution Width 16.9 % (11.6-14.8); White Blood Cell Count 3.2 X10^3/uL (4.5-11.0)
[2022-11-11 07:55] VITALS: BP 133/67; PULSE 122; RESP 18; TEMP 36.7; O2SAT 99
[2022-11-11 08:00] VITALS: O2SAT 98
[2022-11-11] MEDS: LIDOCAINE PATCH 1 EACH ADH..PATCH TOP (08:07)
[2022-11-11] MEDS: METHADONE 10 MG TABLET PO ×2 (08:07→14:05)
--- NOTE | 2022-11-11 09:03 | P.PN_ITS ---
Subjective Subjective Interval history: Patient eager to be off the fentanyl patch. Methadone has been increased to compensate for this. Main complaint at this time is itchy abdominal skin. Exam Vital Signs (past 8 hours): - 11/11/22 08:00 11/11/22 08:42 Pulse Oximetry 98 Oxygen Delivery Method Room Air Room Air Oxygen Flow Rate 0 Oxygen Delivery Method Room Air Oxygen Flow Rate 0 Narrative Exam Narrative: GEN: alert and energy good HEENT: dry mucous membranes, PERRL NECK: trachea midline, no JVD PULM: clear bilaterally, no wheezes, rhonchi, rales CV: tachycardic no murmurs ABD: distended, tender diffusely, but especially epigastric, decreased bowel sounds EXT: warm and well perfused with no edema NEURO: awake, no focal deficits SKIN: Very itchy on abdomen where skin is stretched. Objective Labs 11/11/22 06:00 11/11/22 06:00 Labs: Laboratory Results - last 24 hr 11/11/22 11/11/22 11/11/22 06:00 06:00 06:00 WBC 3.2 L RBC 2.94 L Hgb 7.0 L Hct 22.0 L MCV 74.9 L MCH 23.8 L MCHC 31.8 RDW 16.9 H Plt Count 302 Neut % (Auto) 56.5 Lymph % (Auto) 24.4 L [place] % (Auto) 15.5 H Eos % (Auto) 2.7 Baso % (Auto) 0.9 Neut # (Auto) 1800 Lymph # (Auto) 800 L [place] # (Auto) 500 Eos # (Auto) 100 Baso # (Auto) 0 Sodium 130 L Potassium 4.2 Chloride 98 Carbon Dioxide 28 BUN 16 Creatinine 0.52 Estimated GFR > 60 BUN/Creatinine Ratio 30.8 H Glucose 109 H Calcium 7.5 L Phosphorus 4.0 Magnesium 2.0 Total Bilirubin 0.9 AST 22 ALT 15 Alkaline Phosphatase 140 H Total Protein 5.5 L Albumin 2.5 L Globulin 3.0 Albumin/Globulin Ratio 0.8 L Triglycerides 188 H [facility] Medical History Healthy adult Family History Father Cancer Diabetes mellitus Grandmother Diabetes mellitus Father Cancer Aunt Cancer Social History household members: family and children Smoking Status: Former smoker Assessment & Plan Assessment & Plan narrative: 1. Possible small bowel obstruction -concerning for advancing cancer -per general surgery no surgical indication -okay to trial diet, but she is not tolerating much at baseline -continue TPN, need to coordinate with community TPN provider to plan for discharge 2. Refractory abdominal pain due to her underlying malignancy -secondary to neoplasm, continues to have ascites but not enough for paracentesis and unlikely contributory to pain at this time -Previous hospitalist discussed with hospice provider Dr. Hugo They recommend liquid methadone 10 mg TID and patient was started on 5 mg qh8, tolerating well - increased to 20 mg q8h and also tolerating well, with morphine SL at least 20 mg as needed. Hospice recommend removing fentanyl patch ideally.? Increased SL morphine to 20 mg q1h prn and also has dilaudid 1 mg q1 prn which she is still requiring only once yesterday. -continue ativan, zofran, vistaril. Added scopalamine patch. -added lidocaine patch -today fentanyl patch was discontinued and the patient's methadone was increased by 10 mg every 8 hours such that her doses now 30 mg of methadone every 8 hours. If patient is tolerating this without need for any breakthrough Dilaudid, she can be discharged. 3. Metastatic gastric adenocarcinoma -not curative -did recently start folfox and nivolumab with oncology. Will eventually have further palliative chemotherapy once discharged. 4. Severe protein calorie malnutrition -secondary to malignancy -consult casino floor runner for TPN -TPN per pharmacy, continue 5. Anasarca -secondary to advanced metastatic disease, lasix being held for now given hyponatremia -not enough ascites to safely tap currently 6. Hyponatremia -secondary to hypovolemia from lasix and poor oral intake -hold lasix for now - sodium stable, stable at 130 today 7. Anemia -secondary to malignancy, stable -transfuse only for hgb <7. At 7.0 today 8. Tachycardia -likely secondary to advanced malignancy -CTA PE negative from 11/05 9. Possible right middle opacification -no cough, fevers, white count currently -hold on antibiotics -low threshold to start 10. Itchy abdominal skin from stretching. Provide a cortisone 1% cream t.i.d. as needed. Dispo: Hopeful with discharge home with hospice primarily for pain control services, with goal of lengthening functional life span as much as possible. Hospice states they will open this coming Friday for the patient. Goal is home as quickly as possible with adequate pain control. Hopefully today if possible. CODE: Full Proxy: Sofia Woo, mother Time Spent With Patient Critical Care time: I spent a total of [] minutes of critical care time on this patient's care today; this time is exclusive of procedural time. Quality VTE Deep Vein Thrombosis/Pulmonary Embolism Present on Admission: No
[2022-11-11 09:31] VITALS: TEMP 37.2
[2022-11-11] MEDS: HYDROCORTISONE 1% CREAM 28 GM 1 APPLIC TOP (09:31)
[2022-11-11] MEDS: ONDANSETRON 4 MG/2 ML INJ IV (10:01)
--- NOTE | 2022-11-11 11:52 | PC.NURSE ---
Day Shift Fentanyl patch to left chest removed and discarded per provider order. Pt reports PO methadone adequately controlling pain and eating some bites of food. Independent in halls. Both PICC lumens flushing at this time with good blood return, heparin locked. Call light within reach, using appropriately to make needs known.
--- NOTE | 2022-11-11 13:00 | CM.DPNOTE ---
DCP: This CM received a call from Berna at [facility] who contacted family. Family has an appt at [facility] tomorrow at 230pm and per Berna at [facility], the plan was for Hospice to open care in the morning between 10am and 11am and Berna states that she consulted with Dr Zarco there at [facility] who stated that it may be too soon to open hospice care. Berna of [facility] stated that she contacted the family and they will attend the appt in [place] tomorrow to explore any options that will support patient to attain life. Berna states that she will keep in touch with family after the appt tomorrow and plan to open [facility] services on this week if there are no other options. This CM spoke with Addi at [facility] and let him know that [facility] will not open patient for care until pending her decision to This CM reached out to [facility] to keep them updated incase Hospice does not open on as plan is for pt to discharge home today and pt plans for chemotherapy treatment then [facility] resumption could be an option. Initially spoke with Vane in cashier receptionist who will have an admission coordinator call this CM back. P: Home with [facility] and [facility] if pt makes the decision to continue with Chemotherapy treatment as she has an appt at [facility] tomorrow at 230. If pt declines further treatment per Berna, [facility] will open care on , 11/14/2022. Ellie Jaeger RN Case Manager
[2022-11-11] MEDS: hydrOXYzine pamoate 25 MG CAPSULE PO (13:07)
--- NOTE | 2022-11-11 13:51 | P.DS_ITS ---
History of Present Illness History of Present Illness Chief complaint: uncontrolled abd pain, ca pt, difficulty breathing Discharge Providers Provider Date of admission: 11/06/22 23:35 Discharge Date: 11/11/22 Primary care physician: Yaneli Brewer DO Discharge provider: Lien Rodriguez MD Summary Hospital Course Discharge Diagnosis: Metastatic gastric adenocarcinoma Possible small bowel obstruction Refractory abdominal pain due to her underlying malignancy Severe protein calorie malnutrition Parental nutrition by TPN Anasarca Hyponatremia Anemia Tachycardia Possible right middle lobe opacification Itchy abdominal skin from stretching Hospital Course: Ms. Chilo Stokes is a 27W with recently diagnosed metastatic, poorly differentiated gastric adenocarcinoma who presents to the hospital with abdominal distention and pain. She was recently admitted to this hospital for the same symptoms during which she did get EGD and biopsy, was diagnosed with cancer as above, and found to have peritoneal mets and ascites. Ultimately she was started on palliative folfox and nivolumab. She was persitently tachycardic during that visit with minimal improvement with pain medications and fluid. She had CT angio negative for PE. She had poor tolerance of oral diet, and was started on TPN. She was discharged only a few days ago. She has been unable to tolerate diet. She has worsening abdominal pain. She presented to the ED yesterday and eval was done to see if she had ascites that could be tapped, there was not enough to safely tap and she was discharged home. She presents t dez with worsening abdominal pain. She has been using fentanyl, methadone, and morphine with minimal relief. In the ED workup was done, vitals notable for afebrile, tachycardic 122. Labs notable for WBC 6.0, hgb 8.3, plts 352. Na 128, Creatinine 0.45. Abdominal ultrasound showed small amount of ascites. CT abdomen showed small bowel dilation concerning for possible obstruction. small ascites, small pleural effusion. There was also noted opacity in right middle lobe, possible infectious versus inflammatory. She denied cough or shortness of breath. General surgery was consulted and noted that there was no surgical intervention indicated. Oncology at was called and noted that there is no further medical treatment for her, and that her condition is ultimately terminal. She is admitted for pain control. Was given increasing doses of methadone and stabilized on methadone 30 mg every 8 hours. With this the patient was able to the fentanyl patch. In control will be provided by hospice once she is at home and hospice will commence on November 12, 2022. Patient will continue with palliative chemotherapy. On the day of discharge patient's vitals were temperature 98.9, blood pressure 133/67 heart rate 122 respiratory rate 18 O2 saturation 98% on room air. And was adequately controlled. Requiring occasional medication for nausea and medication prescribed for skin itching on her abdomen. Hemoglobin was decreasing during hospital stay but never went below 7.0. On the day of discharge it was 7.0. Status at Discharge Cognitive/behavioral status at discharge: at baseline, confused Functional status at discharge: independent ambulation Overall status at discharge: patient is back to baseline Time Spent with Patient Time spent: Greater than 30 minutes Exam Vital Signs (past 8 hours): - 11/11/22 08:00 11/11/22 08:42 11/11/22 07:55 Temperature 98.0 F Pulse Rate 122 H Respiratory Rate 18 Blood Pressure 133/67 Pulse Oximetry 98 99 Oxygen Delivery Method Room Air Room Air Oxygen Flow Rate 0 0 11/11/22 09:31 Temperature 98.9 F Pulse Rate Respiratory Rate Blood Pressure Pulse Oximetry Oxygen Delivery Method Oxygen Flow Rate Oxygen Delivery Method Room Air Oxygen Flow Rate 0 Narrative Exam Narrative: GEN: alert and energy good HEENT: dry mucous membranes, PERRL NECK: trachea midline, no JVD PULM: clear bilaterally, no wheezes, rhonchi, rales CV: tachycardic no murmurs ABD: distended, tender diffusely, but especially epigastric, decreased bowel sounds EXT: warm and well perfused with no edema NEURO: awake, no focal deficits SKIN:? Very itchy on abdomen where skin is stretched. Objective Labs 11/11/22 06:00 11/11/22 06:00 Labs: Laboratory Results - last 24 hr 11/11/22 11/11/22 11/11/22 06:00 06:00 06:00 WBC 3.2 L RBC 2.94 L Hgb 7.0 L Hct 22.0 L MCV 74.9 L MCH 23.8 L MCHC 31.8 RDW 16.9 H Plt Count 302 Neut % (Auto) 56.5 Lymph % (Auto) 24.4 L [place] % (Auto) 15.5 H Eos % (Auto) 2.7 Baso % (Auto) 0.9 Neut # (Auto) 1800 Lymph # (Auto) 800 L [place] # (Auto) 500 Eos # (Auto) 100 Baso # (Auto) 0 Sodium 130 L Potassium 4.2 Chloride 98 Carbon Dioxide 28 BUN 16 Creatinine 0.52 Estimated GFR > 60 BUN/Creatinine Ratio 30.8 H Glucose 109 H Calcium 7.5 L Phosphorus 4.0 Magnesium 2.0 Total Bilirubin 0.9 AST 22 ALT 15 Alkaline Phosphatase 140 H Total Protein 5.5 L Albumin 2.5 L Globulin 3.0 Albumin/Globulin Ratio 0.8 L Triglycerides 188 H PFSH Medical History Healthy adult Family History Father Cancer Diabetes mellitus Grandmother Diabetes mellitus Father Cancer Aunt Cancer Social History household members: family and children Smoking Status: Former smoker Discharge Plan Discharge Plan Patient Disposition: Home Discharge orders & Medications Prescriptions: New methadone 10 mg Tablet 10 mg PO Q8H Qty: 21 0RF hydrocortisone 1 % Cream 1 applic topical TID PRN (Reason: Itching) Qty: 100 0RF lidocaine 5 % Adhesive Patch,Medicated 1 ea topical BEDTIME Qty: 30 0RF hydroxyzine pamoate 25 mg Capsule 25 mg PO Q4HR PRN (Reason: Nausea) Qty: 100 0RF methadone 10 mg Tablet 20 mg PO Q8H Qty: 42 0RF scopolamine base [Transderm-Scop] 1 mg over 3 days Patch 3 Day 1 patch topical Q72H Qty: 10 0RF Continued furosemide [Lasix] 20 mg Tablet 20 mg PO DAILY Qty: 30 0RF Rx Instructions: Take 1 tablet daily in the morning. olanzapine [Zyprexa Zydis] 10 mg Tablet,Disintegrating 5 mg PO DAILY Qty: 30 0RF morphine 15 mg Tablet 30 mg PO Q4H PRN (Reason: Pain, Severe (7-10)) Qty: 60 0RF hydroxyzine pamoate 25 mg Capsule 25 mg PO Q6HR PRN (Reason: Itching) Qty: 30 0RF pantoprazole [Protonix] 40 mg tablet,delayed release (DR/EC) 40 mg PO DAILY Qty: 30 0RF ondansetron 8 mg tablet,disintegrating 8 mg PO Q8H PRN (Reason: nausea and vomiting) Qty: 30 0RF Senna Plus 8.6-50 mg capsule 2 tab-cap PO BID Qty: 60 0RF Discontinued fentanyl 50 mcg/hr Patch 72 Hour 50 mcg topical Q72H Qty: 5 0RF methadone 5 mg Tablet 5 mg PO TID Qty: 45 0RF Follow up/Referrals: Yaneli Brewer DO [Primary Care Provider] - Visit Report/Discharge Packet Stand Alone Forms: Patient Portal/API, Stroke Signs & Symptoms Discharge Data Primary Care Provider: Yaneli Brewer Quality VTE Deep Vein Thrombosis/Pulmonary Embolism Present on Admission: No
[2022-11-11] MEDS: SCOPOLAMINE 1 PATCH TOP (15:37)
== END 2022-11-11 16:20 | disposition home or self-care (01) | DRG 861 ==
LOC: ED 23:34 → ICU 11-07 06:20 → AC 11-07 13:58
PROVIDERS: Emergency Medicine; Internal Medicine; Admitting Provider Internal Medicine; Emergency Provider Emergency Medicine; PCP Family Medicine; Visit Provider Internal Medicine
DX: G89.3 Neoplasm related pain (acute) (chronic) (principal); K56.609 Unspecified intestinal obstruction, unspecified as to partial versus complete obstruction; C16.9 Malignant neoplasm of stomach, unspecified; E43 Unspecified severe protein-calorie malnutrition; E87.1 Hypo-osmolality and hyponatremia; D63.0 Anemia in neoplastic disease; L29.9 Pruritus, unspecified; Z87.891 Personal history of nicotine dependence; Z68.30 Body mass index [BMI] 30.0-30.9, adult; Z20.822 Contact with and (suspected) exposure to COVID-19
CPT/HCPCS: 36415; 36592; 71045; 74177; 76705; 80048; 80053; 81001; 81025; 83690; 83735; 84100; 84134; 84478; 85025; 85610; 87086; 87635; 87797; 93005; 93970; 96365; 96374; 96375; 96376; 99284; C9803; B4185; B4189; C9113; J1170; J1200; J1650; J2060; J2405; J3010; J3480; Q9967

== ENCOUNTER 2022-11-17 13:49 | Emergency (ER) | payer OTHER, MEDICAID, SELFPAY ==
[2022-11-07 01:24] VITALS: BMI 30.5
[2022-11-17] VITALS (17 sets, daily range): BP systolic 121–140; BP diastolic 67–99; PULSE 105–121; RESP 20–32; TEMP 36.9; O2SAT 96–99; BMI 32.5
--- NOTE | 2022-11-17 14:16 | ED.GENADULT ---
HPI - General Adult General Chief complaint: Abdominal Pain Stated complaint: abd pain SOB Time Seen by Provider: 11/17/22 13:59 Source: patient and family Mode of arrival: Ambulatory History of Present Illness HPI narrative: Patient is a 27-year-old female. A known history of gastric cancer. Is being followed by Oncology and receiving treatment. Has had ascites in the past. Has had 2 prior paracentesis. Was admitted earlier this month for concern of bowel obstruction. States she woke up this morning with abdominal pain and bloating. No fevers. No vomiting. No nausea. Does have lower extremity swelling which is not new. Related Data Previous Rx's Medication Instructions Recorded hydroxyzine pamoate 25 mg capsule 25 mg PO Q6HR PRN Itching #30 caps 11/02/22 morphine 15 mg immediate release 30 mg PO Q4H PRN Pain, Severe 11/02/22 tablet (7-10) #60 tabs olanzapine 10 mg disintegrating 5 mg PO DAILY #30 tabs 11/02/22 tablet (Zyprexa Zydis) ondansetron 8 mg disintegrating 8 mg PO Q8H PRN nausea and 11/02/22 tablet vomiting #30 tabs pantoprazole 40 mg tablet,delayed 40 mg PO DAILY #30 tabs 11/02/22 release (Protonix) sennosides 8.6 mg-docusate sodium 2 tab-cap PO BID #60 caps 11/02/22 50 mg capsule (Senna Plus) hydrocortisone 1 % topical cream 1 applic topical TID PRN Itching 11/11/22 #100 grams hydroxyzine pamoate 25 mg capsule 25 mg PO Q4HR PRN Nausea #100 caps 11/11/22 lidocaine 5 % topical patch 1 ea topical BEDTIME #30 ea 11/11/22 methadone 10 mg tablet 10 mg PO Q8H #21 tabs 11/11/22 methadone 10 mg tablet 20 mg PO Q8H #42 tabs 11/11/22 scopolamine base 1 mg over 3 days 1 patch topical Q72H #10 ea 11/11/22 transdermal patch (Transderm-Scop) Allergies Allergy/AdvReac Type Severity Reaction Status Date / Time No Known Drug Allergies Allergy Verified 11/06/22 15:14 Review of Systems Constitutional Constitutional: Reports system reviewed and no additional complaints, except as documented Gastrointestinal Gastrointestinal: Reports system reviewed and no additional complaints, except as documented Genitourinary Genitourinary: Reports system reviewed and no additional complaints, except as documented Musculoskeletal Musculoskeletal: Reports system reviewed and no additional complaints, except as documented Integumentary/Breasts Skin/Breast: Reports system reviewed and no additional complaints, except as documented Neurologic Neurologic: Reports system reviewed and no additional complaints, except as documented Hematologic/Lymphatic On Anticoagulants: No Patient History Medical History Healthy adult Family History Father Cancer Diabetes mellitus Grandmother Diabetes mellitus Father Cancer Aunt Cancer Social History household members: family and children Smoking Status: Former smoker Smoking Status: Former smoker tobacco type: vaping alcohol intake frequency: holidays/special occasions only Substance Use Type: does not use Exam Initial Vital Signs Initial Vital Signs: Vital Signs Temperature 98.4 F 11/17/22 13:51 Pulse Rate 115 H 11/17/22 13:51 Respiratory Rate 20 11/17/22 13:51 Blood Pressure 134/88 11/17/22 13:51 Pulse Oximetry 99 11/17/22 13:51 Oxygen Delivery Method Room Air 11/17/22 13:51 HENMT Head: normal to inspection and normocephalic Resp Auscultation: clear to auscultation bilaterally Percussion: percussion normal Cardio Rate: tachycardic Rhythm: regular rhythm GI Inspection: distended Palpation: firm, tender and ascites Skin General: no rashes or lesions noted Neuro General: patient alert, patient awake and moves all extremities Extrem General: normal to inspection and capillary refill normal Procedures Paracentesis Time Out Performed: Yes Indication: Ascites Procedure: therapeutic paracentesis Local Anesthetic: lidocaine 1% Amount of anesthesia used (mL): 3 Preparation: sterile prep and drape and Blade used to make tracee in skin Fluid: clear Post Procedure Exam: awake, alert, normal BP and normal SpO2 Patient Tolerated Procedure: Well and No complications Course Orders Ordered: ED Orders 11/17/22 14:20 Basic Metabolic Panel Stat Complete Blood Count AUTO DIFF Stat Hepatic (Liver) Panel Stat Lipase Stat Discontinued Medications Hydromorphone HCl (Hydromorphone 1 Mg Inj) 1 mg IV NOW ONE Stop: 11/17/22 14:17 Last Admin: 11/17/22 14:24 Dose: 1 mg Documented By: CLEMENT Hydromorphone HCl (Hydromorphone 1 Mg Inj) 1 mg IV NOW ONE Stop: 11/17/22 15:54 Last Admin: 11/17/22 15:55 Dose: 1 mg Documented By: CLEMENT Vital Signs Vital signs: Vital Signs - 8 hr 11/17/22 13:51 11/17/22 13:55 11/17/22 13:56 Temperature 98.4 F Pulse Rate 115 H 118 H Respiratory Rate 20 Blood Pressure 134/88 132/88 Pulse Oximetry 99 99 Oxygen Delivery Method Room Air 11/17/22 14:00 11/17/22 14:30 11/17/22 15:00 Temperature Pulse Rate 121 H 116 H 112 H Respiratory Rate 23 22 Blood Pressure Pulse Oximetry 99 98 98 Oxygen Delivery Method 11/17/22 15:03 11/17/22 15:03 11/17/22 15:05 Temperature Pulse Rate 116 H Respiratory Rate 32 H Blood Pressure 134/93 H 140/99 H Pulse Oximetry 99 Oxygen Delivery Method 11/17/22 15:05 11/17/22 15:10 11/17/22 15:10 Temperature Pulse Rate 118 H 111 H Respiratory Rate Blood Pressure 139/89 Pulse Oximetry 98 98 Oxygen Delivery Method 11/17/22 15:15 11/17/22 15:15 11/17/22 15:20 Temperature Pulse Rate 110 H Respiratory Rate Blood Pressure 134/87 133/83 Pulse Oximetry 98 Oxygen Delivery Method 11/17/22 15:20 11/17/22 15:25 11/17/22 15:25 Temperature Pulse Rate 112 H 114 H Respiratory Rate Blood Pressure 134/77 Pulse Oximetry 98 96 Oxygen Delivery Method 11/17/22 15:30 11/17/22 15:30 11/17/22 15:35 Temperature Pulse Rate 113 H 113 H Respiratory Rate Blood Pressure 134/74 Pulse Oximetry 98 98 Oxygen Delivery Method 11/17/22 15:35 11/17/22 15:40 11/17/22 15:40 Temperature Pulse Rate 112 H Respiratory Rate Blood Pressure 131/73 126/67 Pulse Oximetry 99 Oxygen Delivery Method 11/17/22 16:00 11/17/22 16:00 03/12/23 16:20 Temperature Pulse Rate 109 H Respiratory Rate 20 Blood Pressure 121/72 125/74 Pulse Oximetry 96 Oxygen Delivery Method 11/17/22 16:20 Temperature Pulse Rate 105 H Respiratory Rate Blood Pressure Pulse Oximetry 97 Oxygen Delivery Method Medical Decision Making Medical Records Medical records reviewed: Yes I reviewed the patient's medical records. Lab Data Lab results reviewed: Yes I reviewed the patient's lab results. 11/17/22 14:20 11/17/22 14:20 Labs: Lab Results 11/17/22 11/17/22 Range/Units 14:20 14:20 WBC 5.6 (4.5-11.0) X10^3/uL RBC 3.66 L (4.0-5.2) X10^6/uL Hgb 8.9 L (12.0-16.0) g/dL Hct 28.1 L (36-46) % MCV 76.6 L (80-100) fL MCH 24.4 L (26-34) PG MCHC 31.9 (30-36) % RDW 19.1 H (11.6-14.8) % Plt Count 374 (150-400) X10^3/uL Neut % (Auto) Not Reportable Lymph % (Auto) Not Reportable [place] % (Auto) Not Reportable Eos % (Auto) Not Reportable Baso % (Auto) Not Reportable Lymph # (Auto) Not Reportable [place] # (Auto) Not Reportable Baso # (Auto) Not Reportable Total Counted 100 Seg Neutrophils % 65.0 (38-70) % Band Neutrophils % 4.0 (3-7) % Lymphocytes % (Manual) 20.0 L (25-45) % Monocytes % (Manual) 8.0 (2-11) % Eosinophils % (Manual) 1.0 L (2-4) % Basophils % (Manual) 0.0 (0-1) % Metamyelocytes % 2.0 H (-0) % Neutrophils # (Manual) 3864 (7573-5612) /uL Nucleated RBCs 1 H ( - 0) #/Diff RBC Morphology Not Reportable Polychromasia 1+ H Hypochromasia 2+ H Anisocytosis 2+ H Microcytosis 2+ H Sodium 133 L (137-145) mmol/L Potassium 4.0 (3.4-5.1) mmol/L Chloride 101 (98-107) mmol/L Carbon Dioxide 29 (22-32) mmol/L BUN 17 (7-17) mg/dL Creatinine 0.41 L (0.52-1.04) mg/dL Estimated GFR > 60 (>60) mL/min BUN/Creatinine Ratio 41.5 H (6-22) Glucose 105 H (70-100) mg/dL Calcium 7.9 L (8.4-10.2) mg/dL Total Bilirubin 0.9 (0.2-1.3) mg/dL Conjugated Bilirubin 0.0 (0.0-0.3) md/dL Unconjugated Bilirubin 0.2 (0.0-1.1) mg/dL AST 32 (14-36) IU/L ALT 21 (<35) IU/L Alkaline Phosphatase 185 H (38-126) U/L Total Protein 6.2 L (6.3-8.2) g/dL Albumin 2.8 L (3.5-5.0) g/dL Globulin 3.4 (1.7-4.1) g/dL Albumin/Globulin Ratio 0.8 L (1.0-2.8) Lipase 66 (23-300) U/L MDM Narrative Medical decision making narrative: Patient has known malignant ascites. Has had 2 paracentesis in the past. She understands the risks and benefits. It was performed here with removal of 5200 mL patient's blood pressure and respiratory rate were normal. She felt much better afterwards. No fluid was sent for testing. Will discharge patient home with instructions to contact her oncologist tomorrow. She was given return precautions and follow-up instructions. She expressed understanding and agreement. Discharge Plan Departure Patient Disposition: Home Clinical Impression: Ascites, S/P abdominal paracentesis Instructions: DI for Abdominal Paracentesis Activity Restrictions/Additional Instructions: Continue to take all of your medications as directed. Contact your oncologist tomorrow to discuss what they would like to do with regard to your PICC line return to the emergency department for any new symptoms. Prescriptions: No Action olanzapine [Zyprexa Zydis] 10 mg Tablet,Disintegrating 5 mg PO DAILY Qty: 30 0RF morphine 15 mg Tablet 30 mg PO Q4H PRN (Reason: Pain, Severe (7-10)) Qty: 60 0RF hydroxyzine pamoate 25 mg Capsule 25 mg PO Q6HR PRN (Reason: Itching) Qty: 30 0RF pantoprazole [Protonix] 40 mg tablet,delayed release (DR/EC) 40 mg PO DAILY Qty: 30 0RF ondansetron 8 mg tablet,disintegrating 8 mg PO Q8H PRN (Reason: nausea and vomiting) Qty: 30 0RF Senna Plus 8.6-50 mg capsule 2 tab-cap PO BID Qty: 60 0RF methadone 10 mg Tablet 10 mg PO Q8H Qty: 21 0RF hydrocortisone 1 % Cream 1 applic topical TID PRN (Reason: Itching) Qty: 100 0RF lidocaine 5 % Adhesive Patch,Medicated 1 ea topical BEDTIME Qty: 30 0RF hydroxyzine pamoate 25 mg Capsule 25 mg PO Q4HR PRN (Reason: Nausea) Qty: 100 0RF methadone 10 mg Tablet 20 mg PO Q8H Qty: 42 0RF scopolamine base [Transderm-Scop] 1 mg over 3 days Patch 3 Day 1 patch topical Q72H Qty: 10 0RF Referrals: Yaneli Brewer DO [Primary Care Provider] - Stand Alone Forms: Patient Portal/API
[2022-11-17] MEDS: HYDROMORPHONE 1 MG INJ IV ×2 (14:24→15:55)
[2022-11-17 14:35] LABS: Add Manual Diff / Slide Review YES; Hematocrit 28.1 % (36-46); Hemoglobin 8.9 g/dL (12.0-16.0); Mean Corpuscular HGB Conc 31.9 % (30-36); Mean Corpuscular Hemoglobin 24.4 PG (26-34); Mean Corpuscular Volume 76.6 fL (80-100); Platelet Count 374 X10^3/uL (150-400); Red Blood Cell Count 3.66 X10^6/uL (4.0-5.2); Red Cell Distribution Width 19.1 % (11.6-14.8); White Blood Cell Count 5.6 X10^3/uL (4.5-11.0)
[2022-11-17 14:40] LABS: Alanine Aminotransferase 21 IU/L (<35); Albumin 2.8 g/dL (3.5-5.0); Albumin Globulin Ratio 0.8 (1.0-2.8); Alkaline Phosphatase 185 U/L (38-126); Aspartate Aminotransferase 32 IU/L (14-36); BUN Creatinine Ratio 41.5 (6-22); Bilirubin Total 0.9 mg/dL (0.2-1.3); Bilirubin Unconjugated 0.2 mg/dL (0.0-1.1); Blood Urea Nitrogen 17 mg/dL (7-17); Calcium 7.9 mg/dL (8.4-10.2); Carbon Dioxide 29 mmol/L (22-32); Chloride 101 mmol/L (98-107); Estimated Glomerular Filt Rate > 60 mL/min (>60); Globulin 3.4 g/dL (1.7-4.1); Glucose 105 mg/dL (70-100); HEMOLYSIS < 15 (0-50); Lipase 66 U/L (23-300); Sodium 133 mmol/L (137-145); Total Protein 6.2 g/dL (6.3-8.2)
[2022-11-17 15:06] LABS: Total Cells Counted 100
[2022-11-17 15:07] LABS: Neutrophils Absolute Manual 3864 /uL (3000-5900); Nucleated Red Blood Cells 1 #/Diff
[2022-11-17 15:08] LABS: Anisocytosis 2+; Hypochromasia 2+; Microcytosis 2+; Polychromasia 1+
--- NOTE | 2022-11-17 16:30 | PC.NURSE ---
Patient's port flushed with heparin prior to departure.
== END 2022-11-17 16:31 | disposition home or self-care (01) ==
PROVIDERS: Emergency Provider Emergency Medicine; PCP Family Medicine
DX: R18.8 Other ascites (principal); R00.0 Tachycardia, unspecified; Z79.899 Other long term (current) drug therapy
CPT/HCPCS: 80048; 80076; 83690; 85007; 85025; 96374; 96376; 99283; 99284; J1170; J1642

== ENCOUNTER 2022-11-22 15:10 | Emergency (ER) | payer OTHER, MEDICAID, SELFPAY ==
[2022-11-07 01:24] VITALS: BMI 30.5
[2022-11-22] VITALS (20 sets, daily range): BP systolic 112–148; BP diastolic 67–97; PULSE 86–130; RESP 13–48; TEMP 36.7–36.9; O2SAT 99–100
--- NOTE | 2022-11-22 15:25 | DI.RAD.S_ITS ---
PROCEDURE: XR CHEST 1V INDICATIONS: chest pain TECHNIQUE: One view of the chest was acquired. COMPARISON: [facility], CT, CT ANGIO CHEST PE PROTOCOL, 11/05/2022, 17:33. [facility], CR, XR CHEST 1V, 11/08/2022, 11:20. [facility], CR, XR CHEST FOR PICC 1V, 11/05/2022, 17:01. FINDINGS: Surgical changes and devices: Right-sided port with the catheter tip projecting near the confluence of the SVC. Left-sided PICC with the catheter tip at the cavoatrial junction. Lungs and pleura: Lungs appear clear. Lower lung volumes. No pleural effusions or pneumothorax. Mediastinum: Mediastinal contours appear normal. Heart size is normal. Bones and chest wall: No suspicious bony lesions. Overlying soft tissues appear unremarkable. IMPRESSION: No acute cardiopulmonary abnormality identified. Dictated by: Quinn Sosa M.D. on 11/22/2022 at 15:34 Approved by: Quinn Sosa M.D. on 11/22/2022 at 15:35
--- NOTE | 2022-11-22 15:27 | DI.CT.S_ITS ---
PROCEDURE: CT ANGIO CHEST PE PROTOCOL INDICATIONS: lower chest/abd pain, known ca TECHNIQUE: After the administration of intravenous contrast, 2 mm thick sections acquired from the pulmonary apices to the posterior costophrenic angles. 3-dimensional maximum intensity projection (MIP) coronal and sagittal reformats were then acquired through the thorax. For radiation dose reduction, the following was used: automated exposure control, adjustment of mA and/or kV according to patient size. COMPARISON: [facility], CT, CT ABDOMEN PELVIS W CON, 11/06/2022, 17:46. [facility], CT, CT ANGIO CHEST PE PROTOCOL, 11/05/2022, 17:33. FINDINGS: Image quality: Excellent. Pulmonary arteries: Pulmonary arteries are normal in size, and demonstrate no intraluminal filling defects to suggest central pulmonary embolism. Lungs and pleura: Significant interval increase in right pleural fluid, now moderate to severe. Development of a mild to moderate left pleural effusion. Development of airspace consolidation in the right middle lobe as well as subtle peribronchial ground-glass opacities in the right upper lobe, consistent with developing bilobar pneumonia. Central and peripheral airways are patent. Mediastinum: Heart size is normal, without pericardial effusion. No mediastinal or hilar adenopathy. Thoracic aorta is normal in caliber and enhancement. Right chest Port-A-Cath tip extends to the SVC right atrial junction. Esophagus is normal in caliber, without hiatal hernia. Bones and chest wall: No suspicious bony lesions. Ribs and thoracic spine appear intact throughout. Thyroid gland is unremarkable. No axillary or supraclavicular adenopathy. Abdomen: Large ascites. Diffuse gastric wall thickening. IMPRESSION: 1. No evidence of acute pulmonary emboli. 2. Significant interval increase in right pleural effusion and development of a left pleural effusion. The right pleural effusion is moderate to large. 3. Developing bilobar pneumonia in the right lung. 4. Large ascites, diffuse gastric wall thickening. Please refer to a separate report for findings in the abdomen and pelvis. Dictated by: Antoni Bird M.D. on 11/22/2022 at 16:22 Approved by: Antoni Bird M.D. on 11/22/2022 at 16:26
--- NOTE | 2022-11-22 15:27 | DI.CT.S_ITS ---
PROCEDURE: CT ABDOMEN PELVIS W CON INDICATIONS: known ca, abd, chest pain TECHNIQUE: After the administration of intravenous contrast, axial sections acquired from the lung bases to the pubic symphysis. Coronal and sagittal reformats were performed. For radiation dose reduction, the following was used: automated exposure control, adjustment of mA and/or kV according to patient size. COMPARISON: [facility], CT, CT ABDOMEN PELVIS W CON, 11/06/2022, 17:46. FINDINGS: Image quality: Excellent. Lung bases: Moderate to large right pleural effusion, small left pleural effusion.. Heart: No significant findings. ABDOMEN: Liver: Unremarkable. Gallbladder: Again noted is a calcified gallstone. Biliary ducts: Unremarkable. Pancreas: Unremarkable. Spleen: Unremarkable. Adrenal Glands: Unremarkable. Kidneys and Ureters: Unremarkable. Stomach and Bowel: The wall of the stomach is diffusely thickened, as before. There is a large amount of loculated ascites. Much of the bowel is clumped together centrally in the ascitic fluid. The entirety of the colon is at outside of the loculated fluid. The clip together loops are all small bowel. Loops measure up to 2.9 cm. Suspect serosal implant disease involving small bowel loops. Peritoneum: Large loculated ascites which contain the small-bowel, clumped together. There are nodular structures in the pelvic component of the ascites, which likely represent the ovaries. 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 Ventral Wall: No hernias. Abdominal Nodes: No retroperitoneal or mesenteric adenopathy by size criteria. Vessels: Aorta and inferior vena cava are normal in size. PELVIS: Pelvic Organs: Unremarkable. Bladder: Unremarkable. Pelvic Nodes: No enlarged lymph nodes. Miscellaneous: No hernias are seen. Bones: Unremarkable. IMPRESSION: 1. Bilateral pleural effusions, right greater than left. 2. Diffuse thickening of the wall of the stomach, as before. 3. Large loculated ascites, presumed malignant. In this ascites, the small bowel loops are all clumped together with presumed serosal implant disease. 4. No abnormally dilated bowel loops currently. 5. Cholelithiasis. Dictated by: Antoni Bird M.D. on 11/22/2022 at 16:26 Approved by: Antoni Bird M.D. on 11/22/2022 at 16:32
--- NOTE | 2022-11-22 15:28 | ED_ITS ---
HPI - SOB/Dyspnea <Heena De Leon, DO - Last Filed: 11/24/22 12:50> General Chief Complaint: Shortness of Breath/Dyspnea Stated Complaint: SOB Time Seen by Provider: 11/22/22 15:21 Source: patient and family Mode of arrival: Ambulatory Limitations: no limitations History of Present Illness HPI Narrative: This is a 27-year-old female with metastatic gastric cancer, pathology shows poorly differentiated adenocarcinoma, associated peritoneal carcinomatosis, omental caking and malignant ascites. Patient currently is on chemotherapy and had paracentesis on the 17 of November. Patient states today she started having sudden shortness of breath she has some epigastric pain that also radiates down to her abdomen. She states no fevers or chills. She denies any lightheadedness or passing out. She denies pain but does state she is epigastric/chest discomfort. Patient states she feels very short of breath. She denies nausea or vomiting. She states she is been having bowel movements. She denies diarrhea constipation. She states her abdomen is distended but actually better since she had her paracentesis on the , she and her states she had 5 L taken off. Patient has not had any new swelling of extremities. She denies fevers or chills. No cold cough or congestion. She is taking methadone and morphine for pain control Zofran for nausea. Patient has a port on her right and a PICC line in her left upper extremity. She states other than fluid being taken off she has not had any other recent procedures, surgeries or interventions. NKDA. No tobacco, alcohol or illicit. patient's oncologist is Dr. Collier. Her PCP is Dr. Brewer. She is accompanied by her at bedside. Related Data Previous Rx's Medication Instructions Recorded hydroxyzine pamoate 25 mg capsule 25 mg PO Q6HR PRN Itching #30 caps 11/02/22 morphine 15 mg immediate release 30 mg PO Q4H PRN Pain, Severe 11/02/22 tablet (7-10) #60 tabs olanzapine 10 mg disintegrating 5 mg PO DAILY #30 tabs 11/02/22 tablet (Zyprexa Zydis) ondansetron 8 mg disintegrating 8 mg PO Q8H PRN nausea and 11/02/22 tablet vomiting #30 tabs pantoprazole 40 mg tablet,delayed 40 mg PO DAILY #30 tabs 11/02/22 release (Protonix) sennosides 8.6 mg-docusate sodium 2 tab-cap PO BID #60 caps 11/02/22 50 mg capsule (Senna Plus) hydrocortisone 1 % topical cream 1 applic topical TID PRN Itching 11/11/22 #100 grams hydroxyzine pamoate 25 mg capsule 25 mg PO Q4HR PRN Nausea #100 caps 11/11/22 lidocaine 5 % topical patch 1 ea topical BEDTIME #30 ea 11/11/22 methadone 10 mg tablet 10 mg PO Q8H #21 tabs 11/11/22 methadone 10 mg tablet 20 mg PO Q8H #42 tabs 11/11/22 scopolamine base 1 mg over 3 days 1 patch topical Q72H #10 ea 11/11/22 transdermal patch (Transderm-Scop) amoxicillin 875 mg-potassium 1 tab PO BID #20 tabs 11/22/22 clavulanate 125 mg tablet methadone 10 mg tablet 10 mg PO TID #10 tabs 11/22/22 morphine 30 mg immediate release 30 mg PO Q6H PRN pain #10 tabs 11/22/22 tablet Allergies Allergy/AdvReac Type Severity Reaction Status Date / Time No Known Drug Allergies Allergy Verified 11/06/22 15:14 Review of Systems <Heena De Leon DO - Last Filed: 11/24/22 12:50> Review of Systems ROS Unobtainable: All systems reviewed & are unremarkable except as noted in HPI and below Patient History <Heena De Leon DO - Last Filed: 11/24/22 12:50> Medical History Healthy adult Family History Father Cancer Diabetes mellitus Grandmother Diabetes mellitus Father Cancer Aunt Cancer Social History household members: family and children Smoking Status: Former smoker Smoking Status: Former smoker tobacco type: vaping alcohol intake frequency: holidays/special occasions only Substance Use Type: does not use Exam <Heena De Leon DO - Last Filed: 11/24/22 12:50> Narrative Exam Narrative: GENERAL: Alert and oriented x three, pale, jaundiced female in moderate distress. HEENT: Head normocephalic, atraumatic, EOMI, pupils reactive, face symmetric, moist mucous membranes NECK: Supple, full range of motion CARDIOVASCULAR: Tachycardic but Regular rate and rhythm without murmurs, rubs or gallops. No JVD. RESPIRATORY: Breath sounds equal bilaterally, no wheezes rales or rhonchi. Positive for tachypnea. ABDOMEN: Soft, distended. Generalized tender. Normoactive bowel sounds all 4 quadrants. No guarding or rebound, rigidity, no mass : No CVA tenderness EXTREMITIES: Normal range of motion, no clubbing or edema. Neurovascularly intact NEUROLOGICAL: Cranial nerves II through XII grossly intact. Moving all extremities SKIN: Warm, dry, no petechiae, no rashes or lesions. Initial Vital Signs Initial Vital Signs: Vital Signs Temperature 98.1 F 11/22/22 15:15 Pulse Rate 130 H 11/22/22 15:15 Respiratory Rate 48 H 11/22/22 15:15 Blood Pressure 112/67 11/22/22 15:15 Pulse Oximetry 100 11/22/22 15:15 Oxygen Delivery Method Room Air 11/22/22 15:15 <Arnold James, DO - Last Filed: 11/23/22 03:19> Initial Vital Signs Initial Vital Signs: Vital Signs Temperature 98.1 F 11/22/22 15:15 Pulse Rate 130 H 11/22/22 15:15 Respiratory Rate 48 H 11/22/22 15:15 Blood Pressure 112/67 11/22/22 15:15 Pulse Oximetry 100 11/22/22 15:15 Oxygen Delivery Method Room Air 11/22/22 15:15 Course <Heena De Leon, DO - Last Filed: 11/24/22 12:50> Orders Ordered: Discontinued Medications Fentanyl (Fentanyl 100 Mcg/2 Ml Inj) 50 mcg IV Q1H PRN PRN Reason: Pain, Severe (7-10) Last Admin: 11/22/22 17:30 Dose: 50 mcg Documented By: MERARY Heparin Sodium (Porcine) (Heparin 500 Unit/5 Ml Port Flush) 500 unit IV PRN PRN PRN Reason: Flush Last Admin: 11/22/22 20:02 Dose: 500 unit Documented By: BS Heparin Sodium (Porcine) (Heparin 500 Unit/5 Ml Port Flush) 500 unit IV PRN ONE Stop: 11/22/22 19:51 Last Admin: 11/22/22 20:07 Dose: Not Given Documented By: BS Hydromorphone HCl (Hydromorphone 1 Mg Inj) 1 mg IV Q3H PRN PRN Reason: Pain, Moderate (4-6) Last Admin: 11/22/22 19:04 Dose: 1 mg Documented By: Admin: 11/22/22 15:44 Dose: 1 mg Documented By: AT Hydromorphone HCl (Hydromorphone 1 Mg Inj) 1 mg IV NOW ONE Stop: 11/22/22 17:09 Last Admin: 11/22/22 17:17 Dose: 1 mg Documented By: BS Sodium Chloride (Normal Saline 0.9%) 1,000 mls @ 1,000 mls/hr IV BOLUS ONE Stop: 11/22/22 16:24 Last Infusion: 11/22/22 18:41 Dose: 0 mls/hr Documented By: Admin: 11/22/22 15:46 Dose: 1,000 mls/hr Documented By: AT Piperacillin Sod/Tazobactam (Sod 4.5 gm/ Sodium Chloride) 100 mls @ 200 mls/hr IV NOW ONE Stop: 11/22/22 16:37 Last Infusion: 11/22/22 18:41 Dose: 0 mls/hr Documented By: Admin: 11/22/22 17:18 Dose: 200 mls/hr Documented By: BS Methadone HCl (Methadone 10 Mg Tablet) 10 mg PO NOW ONE Stop: 11/22/22 18:18 Last Admin: 11/22/22 18:47 Dose: 10 mg Documented By: BS Naloxone HCl (Naloxone 4 Mg Nasal [place]) 4 mg MISC SEEINSTR ONE Stop: 11/22/22 20:08 Last Admin: 11/22/22 20:13 Dose: 4 mg Documented By: BS Vital Signs Vital signs: Vital Signs - 8 hr 11/22/22 19:25 11/22/22 19:25 11/22/22 19:30 Pulse Rate 100 H Respiratory Rate 15 Blood Pressure 138/85 138/86 Pulse Oximetry 100 11/22/22 19:30 11/22/22 19:40 11/22/22 19:40 Pulse Rate 90 91 H Respiratory Rate 14 14 Blood Pressure 134/89 Pulse Oximetry 99 100 11/22/22 19:50 11/22/22 19:50 11/22/22 19:59 Pulse Rate 94 H 99 H Respiratory Rate 16 22 Blood Pressure 135/94 H Pulse Oximetry 100 100 11/22/22 19:59 11/22/22 20:00 11/22/22 20:00 Pulse Rate 95 H Respiratory Rate 14 Blood Pressure 135/91 H 138/93 H Pulse Oximetry 100 <Arnold James DO - Last Filed: 11/23/22 03:19> Orders Ordered: Discontinued Medications Fentanyl (Fentanyl 100 Mcg/2 Ml Inj) 50 mcg IV Q1H PRN PRN Reason: Pain, Severe (7-10) Last Admin: 11/22/22 17:30 Dose: 50 mcg Documented By: MERARY Heparin Sodium (Porcine) (Heparin 500 Unit/5 Ml Port Flush) 500 unit IV PRN PRN PRN Reason: Flush Last Admin: 11/22/22 20:02 Dose: 500 unit Documented By: BS Heparin Sodium (Porcine) (Heparin 500 Unit/5 Ml Port Flush) 500 unit IV PRN ONE Stop: 11/22/22 19:51 Last Admin: 11/22/22 20:07 Dose: Not Given Documented By: MERARY Hydromorphone HCl (Hydromorphone 1 Mg Inj) 1 mg IV Q3H PRN PRN Reason: Pain, Moderate (4-6) Last Admin: 11/22/22 19:04 Dose: 1 mg Documented By: Admin: 11/22/22 15:44 Dose: 1 mg Documented By: AT Hydromorphone HCl (Hydromorphone 1 Mg Inj) 1 mg IV NOW ONE Stop: 11/22/22 17:09 Last Admin: 11/22/22 17:17 Dose: 1 mg Documented By: BS Sodium Chloride (Normal Saline 0.9%) 1,000 mls @ 1,000 mls/hr IV BOLUS ONE Stop: 11/22/22 16:24 Last Infusion: 11/22/22 18:41 Dose: 0 mls/hr Documented By: Admin: 11/22/22 15:46 Dose: 1,000 mls/hr Documented By: AT Piperacillin Sod/Tazobactam (Sod 4.5 gm/ Sodium Chloride) 100 mls @ 200 mls/hr IV NOW ONE Stop: 11/22/22 16:37 Last Infusion: 11/22/22 18:41 Dose: 0 mls/hr Documented By: Admin: 11/22/22 17:18 Dose: 200 mls/hr Documented By: BS Methadone HCl (Methadone 10 Mg Tablet) 10 mg PO NOW ONE Stop: 11/22/22 18:18 Last Admin: 11/22/22 18:47 Dose: 10 mg Documented By: BS Naloxone HCl (Naloxone 4 Mg Nasal [place]) 4 mg MISC SEEINSTR ONE Stop: 11/22/22 20:08 Last Admin: 11/22/22 20:13 Dose: 4 mg Documented By: MERARY Vital Signs Vital signs: Vital Signs - 8 hr 11/22/22 19:25 11/22/22 19:25 11/22/22 19:30 Pulse Rate 100 H Respiratory Rate 15 Blood Pressure 138/85 138/86 Pulse Oximetry 100 11/22/22 19:30 11/22/22 19:40 11/22/22 19:40 Pulse Rate 90 91 H Respiratory Rate 14 14 Blood Pressure 134/89 Pulse Oximetry 99 100 11/22/22 19:50 11/22/22 19:50 11/22/22 19:59 Pulse Rate 94 H 99 H Respiratory Rate 16 22 Blood Pressure 135/94 H Pulse Oximetry 100 100 11/22/22 19:59 11/22/22 20:00 11/22/22 20:00 Pulse Rate 95 H Respiratory Rate 14 Blood Pressure 135/91 H 138/93 H Pulse Oximetry 100 MDM - SOB/Dyspnea <Heena De Leon, - Last Filed: 11/24/22 12:50> Lab Data 11/22/22 15:35 11/22/22 15:35 Labs: Lab Results 11/22/22 11/22/22 11/22/22 Range/Units 15:35 15:35 15:35 WBC 7.2 (4.5-11.0) X10^3/uL RBC 3.98 L (4.0-5.2) X10^6/uL Hgb 9.6 L (12.0-16.0) g/dL Hct 29.2 L (36-46) % MCV 73.4 L (80-100) fL MCH 24.2 L (26-34) PG MCHC 33.0 (30-36) % RDW 18.7 H (11.6-14.8) % Plt Count 380 (150-400) X10^3/uL Neut % (Auto) 85.0 H (50-75) % Lymph % (Auto) 12.8 L (25-40) % Pratt % (Auto) 1.8 L (3-14) % Eos % (Auto) 0.1 L (2-4) % Baso % (Auto) 0.3 (0-2) % Neut # (Auto) 6100 (5785-9436) /uL Lymph # (Auto) 900 L (8433-9782) /uL Pratt # (Auto) 100 (0-900) /uL Eos # (Auto) 0 (0-450) /uL Baso # (Auto) 0 (0-100) /uL PT 13.0 H (10.1-12.7) SECONDS INR 1.1 (0.9-1.3) APTT 30 (26-36) SECONDS Sodium 132 L (137-145) mmol/L Potassium 3.6 (3.4-5.1) mmol/L Chloride 100 (98-107) mmol/L Carbon Dioxide 24 (22-32) mmol/L BUN 12 (7-17) mg/dL Creatinine 0.38 L (0.52-1.04) mg/dL Estimated GFR > 60 (>60) mL/min BUN/Creatinine Ratio 31.6 H (6-22) Glucose 118 H (70-100) mg/dL Lactate (0.7-2.1) mmol/L Calcium 8.3 L (8.4-10.2) mg/dL Total Bilirubin 0.8 (0.2-1.3) mg/dL AST 46 H (14-36) IU/L ALT 37 H (<35) IU/L Alkaline Phosphatase 230 H (38-126) U/L Total Creatine Kinase 22 L (30-135) U/L CK-MB (CK-2) TNP CK-MB (CK-2) Rel Index TNP Troponin I < 0.012 (0.01-0.034) ng/mL NT-Pro-B Natriuret Pep (<125) pg/mL Total Protein 6.2 L (6.3-8.2) g/dL Albumin 2.9 L (3.5-5.0) g/dL Globulin 3.3 (1.7-4.1) g/dL Albumin/Globulin Ratio 0.9 L (1.0-2.8) Lipase 171 D (23-300) U/L Procalcitonin 0.07 (<0.5) ng/mL SARS-CoV-2 (PCR) (Negative) Influenza A (RT-PCR) (NEGATIVE) Influenza B (RT-PCR) (NEGATIVE) RSV (PCR) (Negative) Blood Type Antibody Screen 11/22/22 11/22/22 11/22/22 Range/Units 15:35 15:35 15:35 WBC (4.5-11.0) X10^3/uL RBC (4.0-5.2) X10^6/uL Hgb (12.0-16.0) g/dL Hct (36-46) % MCV (80-100) fL MCH (26-34) PG MCHC (30-36) % RDW (11.6-14.8) % Plt Count (150-400) X10^3/uL Neut % (Auto) (50-75) % Lymph % (Auto) (25-40) % Pratt % (Auto) (3-14) % Eos % (Auto) (2-4) % Baso % (Auto) (0-2) % Neut # (Auto) (8134-8728) /uL Lymph # (Auto) (0342-5684) /uL Pratt # (Auto) (0-900) /uL Eos # (Auto) (0-450) /uL Baso # (Auto) (0-100) /uL PT (10.1-12.7) SECONDS INR (0.9-1.3) APTT (26-36) SECONDS Sodium (137-145) mmol/L Potassium (3.4-5.1) mmol/L Chloride (98-107) mmol/L Carbon Dioxide (22-32) mmol/L BUN (7-17) mg/dL Creatinine (0.52-1.04) mg/dL Estimated GFR (>60) mL/min BUN/Creatinine Ratio (6-22) Glucose (70-100) mg/dL Lactate 1.9 (0.7-2.1) mmol/L Calcium (8.4-10.2) mg/dL Total Bilirubin (0.2-1.3) mg/dL AST (14-36) IU/L ALT (<35) IU/L Alkaline Phosphatase (38-126) U/L Total Creatine Kinase (30-135) U/L CK-MB (CK-2) CK-MB (CK-2) Rel Index Troponin I (0.01-0.034) ng/mL NT-Pro-B Natriuret Pep 567 H (<125) pg/mL Total Protein (6.3-8.2) g/dL Albumin (3.5-5.0) g/dL Globulin (1.7-4.1) g/dL Albumin/Globulin Ratio (1.0-2.8) Lipase (23-300) U/L Procalcitonin (<0.5) ng/mL SARS-CoV-2 (PCR) (Negative) Influenza A (RT-PCR) (NEGATIVE) Influenza B (RT-PCR) (NEGATIVE) RSV (PCR) (Negative) Blood Type B Positive Antibody Screen Negative 11/22/22 Range/Units 16:42 WBC (4.5-11.0) X10^3/uL RBC (4.0-5.2) X10^6/uL Hgb (12.0-16.0) g/dL Hct (36-46) % MCV (80-100) fL MCH (26-34) PG MCHC (30-36) % RDW (11.6-14.8) % Plt Count (150-400) X10^3/uL Neut % (Auto) (50-75) % Lymph % (Auto) (25-40) % Pratt % (Auto) (3-14) % Eos % (Auto) (2-4) % Baso % (Auto) (0-2) % Neut # (Auto) (9518-5555) /uL Lymph # (Auto) (4028-5045) /uL Pratt # (Auto) (0-900) /uL Eos # (Auto) (0-450) /uL Baso # (Auto) (0-100) /uL PT (10.1-12.7) SECONDS INR (0.9-1.3) APTT (26-36) SECONDS Sodium (137-145) mmol/L Potassium (3.4-5.1) mmol/L Chloride (98-107) mmol/L Carbon Dioxide (22-32) mmol/L BUN (7-17) mg/dL Creatinine (0.52-1.04) mg/dL Estimated GFR (>60) mL/min BUN/Creatinine Ratio (6-22) Glucose (70-100) mg/dL Lactate (0.7-2.1) mmol/L Calcium (8.4-10.2) mg/dL Total Bilirubin (0.2-1.3) mg/dL AST (14-36) IU/L ALT (<35) IU/L Alkaline Phosphatase (38-126) U/L Total Creatine Kinase (30-135) U/L CK-MB (CK-2) CK-MB (CK-2) Rel Index Troponin I (0.01-0.034) ng/mL NT-Pro-B Natriuret Pep (<125) pg/mL Total Protein (6.3-8.2) g/dL Albumin (3.5-5.0) g/dL Globulin (1.7-4.1) g/dL Albumin/Globulin Ratio (1.0-2.8) Lipase (23-300) U/L Procalcitonin (<0.5) ng/mL SARS-CoV-2 (PCR) Negative (Negative) Influenza A (RT-PCR) Flu a negative (NEGATIVE) Influenza B (RT-PCR) Flu b negative (NEGATIVE) RSV (PCR) Negative (Negative) Blood Type Antibody Screen Imaging Data CT scan - chest: Radiologist's Impression: [address] [id number] [address] Scan Report Signed Patient: Niecy Laguerre MR#: [id number] : 1995 Acct:[id number] Age/Sex: 27 / F Date of Service: 11/22/22 Loc: ED Accession Number: [id number] ?? Procedure: CT angio chest PE protocol Ordering Provider: Heena De Leon D.O. PROCEDURE:? CT ANGIO CHEST PE PROTOCOL ? INDICATIONS:? lower chest/abd pain, known ca ? TECHNIQUE:? After the administration of intravenous contrast, 2 mm thick sections acquired from the pulmonary apices to the posterior costophrenic angles.? 3-dimensional maximum intensity projection (MIP) coronal and sagittal reformats were then acquired through the thorax.? For radiation dose reduction, the following was used:? automated exposure control, adjustment of mA and/or kV according to patient size.? ? COMPARISON:? [facility], CT, CT ABDOMEN PELVIS W CON, 11/06/2022, 17:46.? [facility], CT, CT ANGIO CHEST PE PROTOCOL, 11/05/2022, 17:33. ? FINDINGS:? Image quality:? Excellent.? ? Pulmonary arteries:? Pulmonary arteries are normal in size, and demonstrate no intraluminal filling defects to suggest central pulmonary embolism.? ? Lungs and pleura:? Significant interval increase in right pleural fluid, now moderate to severe.? Development of a mild to moderate left pleural effusion.? Development of airspace consolidation in the right middle lobe as well as subtle peribronchial ground-glass opacities in the right upper lobe, consistent with developing bilobar pneumonia.? Central and peripheral airways are patent.? ? Mediastinum:? Heart size is normal, without pericardial effusion.? No mediastinal or hilar adenopathy.? Thoracic aorta is normal in caliber and enhancement.? Right chest Port-A-Cath tip extends to the SVC right atrial junction.? Esophagus is normal in caliber, without hiatal hernia.? ? Bones and chest wall:? No suspicious bony lesions.? Ribs and thoracic spine appear intact throughout.? Thyroid gland is unremarkable.? No axillary or supraclavicular sam nopathy.? ? Abdomen:? Large ascites.? Diffuse gastric wall thickening. ? IMPRESSION:? ? 1. No evidence of acute pulmonary emboli. ? 2. Significant interval increase in right pleural effusion and development of a left pleural effusion.? The right pleural effusion is moderate to large. ? 3. Developing bilobar pneumonia in the right lung. ? 4. Large ascites, diffuse gastric wall thickening. ? Please refer to a separate report for findings in the abdomen and pelvis.? ? ? Dictated by: Antoni Bird M.D. on 11/22/2022 at 16:22 ? ? Approved by: Antoni Bird M.D. on 11/22/2022 at 16:26?? CT scan - abdomen/pelvis: Radiologist's Impression: Close Chest CTA (Signed) Antoni Bird - 11/22/22 Abdomen/Pelvis CT (Signed) PelonAntoni - 11/22/22 Chest X-Ray (Signed) Quinn Sosa - 11/22/22 Oncology Outside DI 11/15/22 Chest X-Ray (Signed) Aryan Carrera - 11/08/22 Vascular Ultrasound (Signed) Mabel Nievese - 11/08/22 Abdomen/Pelvis CT (Signed) Cameron Smith - 11/06/22 Abdomen Ultrasound (Signed) Cameron Smith - 11/06/22 Chest CTA (Signed) Mando Moctezuma - 11/05/22 Abdomen Ultrasound (Signed) Manod Moctezuma - 11/05/22 Chest X-Ray (Signed) Mando Moctezuma - 11/05/22 Chest X-Ray (Signed) Michael Logan - 11/05/22 Abdomen/Pelvis CT (Signed) Keith Marcial - 10/30/22 Chest X-Ray (Signed) Mando Moctezuma - 10/26/22 Chest X-Ray (Signed) Nghia Freed - 10/24/22 Abdomen Ultrasound (Signed) Herman Cesar - 10/24/22 Abdomen/Pelvis CT (Signed) Johanne Melgar - 10/23/22 Chest CTA (Signed) Johanne Melgar - 10/23/22 Echocardiogram Ultrasound (Signed) Theresa Forrest - 10/23/22 Chest X-Ray (Signed) Lea Dunne - 10/23/22 Chest X-Ray (Signed) Clare Daigle - 10/23/22 Breast Ultrasound (Signed) Michael Logan - 10/22/22 Breast Ultrasound (Signed) Michael Logan - 10/22/[address] (Signed) Polo Bermudez - 10/21/22 Chest X-Ray (Signed) Santi Nieves - 10/21/22 Abdomen Ultrasound (Signed) Mando Moctezuma - 10/21/22 Pelvis Ultrasound (Signed) Mabel Nievese - 10/17/22 Chest CTA (Signed) Johanne Melgar - 10/17/22 Paracentesis Ultrasound (Signed) Clare Daigle - 10/17/22 Abdomen Ultrasound (Signed) Santi Nieves - 10/16/22 Telemetry Strips 10/16/22 Abdomen/Pelvis CT (Signed) Glenn Gaines - 10/16/22 Abdomen Ultrasound (Signed) Mabel Nievese - 12/31/20 Launch?Image [place] [id number] CT Scan Report Signed Patient: Niecy Laguerre MR#: [id number] : 1995 Acct:[id number] Age/Sex: 27 / F Date of Service: 11/22/22 Loc: ED Accession Number: [id number] ?? Procedure: CT abdomen pelvis w con Ordering Provider: Heena De Leon D.O. PROCEDURE:? CT ABDOMEN PELVIS W CON ? INDICATIONS:? known ca, abd, chest pain ? TECHNIQUE:? After the administration of intravenous contrast, axial sections acquired from the lung bases to the pubic symphysis.? Coronal and sagittal reformats were performed.? For radiation dose reduction, the following was used:? automated exposure control, adjustment of mA and/or kV according to patient size.? ? COMPARISON:? [facility], CT, CT ABDOMEN PELVIS W CON, 11/06/2022, 17:46. ? FINDINGS:? Image quality:? Excellent.? ? Lung bases:? Moderate to large right pleural effusion, small left pleural effusion.. Heart:? No significant findings. ? ABDOMEN: Liver:? Unremarkable.? ? Gallbladder:? Again noted is a calcified gallstone.? ? Biliary ducts:? Unremarkable.? ? Pancreas:? Unremarkable.? ? Spleen:? Unremarkable.? ? Adrenal Glands:? Unremarkable.? ? Kidneys and Ureters:? Unremarkable.? ? ? Stomach and Bowel:? The wall of the stomach is diffusely thickened, as before.? There is a large amount of loculated ascites.? Much of the bowel is clumped together centrally in the ascitic fluid.? The entirety of the colon is at outside of the loculated fluid.? The clip together loops are all small bowel.? Loops measure up to 2.9 cm.? Suspect serosal implant disease involving small bowel loops.? Peritoneum:? Large loculated ascites which contain the small-bowel, clumped together.? There are nodular structures in the pelvic component of the ascites, which likely represent the ovaries.? 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 ? Ventral Wall: ? No hernias.? Abdominal Nodes:? No retroperitoneal or mesenteric adenopathy by size criteria.? Vessels:? Aorta and inferior vena cava are normal in size.? ? PELVIS: Pelvic Organs:? Unremarkable.? ? Bladder:? Unremarkable.? ? Pelvic Nodes: No enlarged lymph nodes.? Miscellaneous: No hernias are seen. ? ? ? Bones:? Unremarkable.? IMPRESSION:? ? 1. Bilateral pleural effusions, right greater than left. ? 2. Diffuse thickening of the wall of the stomach, as before. ? 3. Large loculated ascites, presumed malignant.? In this ascites, the small bowel loops are all clumped together with presumed serosal implant disease. ? 4. No abnormally dilated bowel loops currently. ? 5. Cholelithiasis.? ? ? Dictated by: Antoni Bird M.D. on 11/22/2022 at 16:26 ? ? Approved by: Antoni Bird M.D. on 11/22/2022 at 16:32?? ECG Data Attestation: I personally reviewed and interpreted this ECG as follows: Prior ECG tracings: available for review Interpretation: Sinus tachycardia rate of 103 OK 160 QRS is 74 and QTC 437 patient S1 Q3 no T- wave elevation. Patient has prior Q-waves not as deep but is present on priors. MDM Narrative Medical decision making narrative: This is a 27-year-old female who presents with complaint of shortness of breath, epigastric/abdominal pain. Patient is high-risk for pulmonary emboli, obstructive, SBP as well as other possible causes of her discomfort today. She is afebrile she is not hypotensive she is tachycardic with tachypnea. She defers anything for pain currently. She describes more of her issues shortness of breath. Labs including CBC, CMP, procalcitonin, lactate, troponin, BNP, coags blood cultures. Plan for CT PE but also CT abdomen pelvis with contrast as patient is high-risk for obstruction, pulmonary emboli. Patient labs patient is anemic but at her baseline, it is microcytic, she does not have a leukocytosis platelets are appropriate at 380. INR is appropriate. CMP shows sodium of 132 stable from 2 days ago normal renal function and electrolytes otherwise, AST ALT alk phosphatase elevated but bilirubin is normal and lipase normal. Troponin negative BNP is 567. Procalcitonin was negative as well. CT shows no pulmonary emboli, does show bilateral pleural effusions moderate to large increased from prior. And also pneumonia. Patient's CT shows diffuse thickening of the wall stomach, large loculated ascites with some small bowel loops prompt together presumed serosal implant disease no abnormally dilated bowel loops suggesting obstruction today, cholelithiasis. Patient's heart rate did improve after some pain medication. She is not quite as tachypneic but she is still uncomfortable. She is had 2 doses of IV Dilaudid 1st 1 was more helpful than the 2nd. She does not appear to require thoracentesis at this time she may currently future. She is distended but not significantly so and states this is actually much better than she was. Patient family are discussing whether to try to try oral pain medications home versus come in for pain management. We discussed am happy to talk with the hospitalist about keeping her. Patient family did update nursing that she is actually stopped her methadone and her oral morphine 3 days ago because her pain was controlled. They have not been continuing her on this medication. They state they still have medication left have about 20 tablets. This would be the right timeframe for patient to start having increasing pain in her tachycardic could be from withdrawal spell. Discussed with patient will restart her methadone I spoke with the pharmacist as well as our hospitalist they recommend 10 mg TID patient can double back to 20 mg tomorrow at 20 mg t.i.d. and then moved 30 mg t.i.d. she is been on several weeks and only been off for 3 days but felt to be prudent as she is still somewhat opiate naive. Spoke with the hospitalist if patient is not able to well controlled her pain starting on the 10 mg here this evening they are happy to be re-contacted if needed to titrate up and for pain management. Patient was restarted at 10 mg p.o. she had doses of IV pain medication she is feeling much improved she is alert, appropriate and prefers to be discharged home at this time. Patient has possible developing pneumonia on her CT so was started on oral antibiotic. Discussed with patient she states they are in [facility] primary care's, asked her to contact her oncologist to see about continuing her pain medications and whether they would be willing to write them regularly she still has 20 tablets left home but will need an option for refills. patient was feeling improved and did not ultimately require signed out to Dr. James. (Jacob - signing for administrative purposes, initially thought to be signed ou t, however full disposition achieved prior to my involvement) <Arnold James DO - Last Filed: 11/23/22 03:19> Lab Data Labs: Lab Results 11/22/22 11/22/22 11/22/22 Range/Units 15:35 15:35 15:35 WBC 7.2 (4.5-11.0) X10^3/uL RBC 3.98 L (4.0-5.2) X10^6/uL Hgb 9.6 L (12.0-16.0) g/dL Hct 29.2 L (36-46) % MCV 73.4 L (80-100) fL MCH 24.2 L (26-34) PG MCHC 33.0 (30-36) % RDW 18.7 H (11.6-14.8) % Plt Count 380 (150-400) X10^3/uL Neut % (Auto) 85.0 H (50-75) % Lymph % (Auto) 12.8 L (25-40) % Pratt % (Auto) 1.8 L (3-14) % Eos % (Auto) 0.1 L (2-4) % Baso % (Auto) 0.3 (0-2) % Neut # (Auto) 6100 (6215-8427) /uL Lymph # (Auto) 900 L (0399-3378) /uL Pratt # (Auto) 100 (0-900) /uL Eos # (Auto) 0 (0-450) /uL Baso # (Auto) 0 (0-100) /uL PT 13.0 H (10.1-12.7) SECONDS INR 1.1 (0.9-1.3) APTT 30 (26-36) SECONDS Sodium 132 L (137-145) mmol/L Potassium 3.6 (3.4-5.1) mmol/L Chloride 100 (98-107) mmol/L Carbon Dioxide 24 (22-32) mmol/L BUN 12 (7-17) mg/dL Creatinine 0.38 L (0.52-1.04) mg/dL Estimated GFR > 60 (>60) mL/min BUN/Creatinine Ratio 31.6 H (6-22) Glucose 118 H (70-100) mg/dL Lactate (0.7-2.1) mmol/L Calcium 8.3 L (8.4-10.2) mg/dL Total Bilirubin 0.8 (0.2-1.3) mg/dL AST 46 H (14-36) IU/L ALT 37 H (<35) IU/L Alkaline Phosphatase 230 H (38-126) U/L Total Creatine Kinase 22 L (30-135) U/L CK-MB (CK-2) TNP CK-MB (CK-2) Rel Index TNP Troponin I < 0.012 (0.01-0.034) ng/mL NT-Pro-B Natriuret Pep (<125) pg/mL Total Protein 6.2 L (6.3-8.2) g/dL Albumin 2.9 L (3.5-5.0) g/dL Globulin 3.3 (1.7-4.1) g/dL Albumin/Globulin Ratio 0.9 L (1.0-2.8) Lipase 171 D (23-300) U/L Procalcitonin 0.07 (<0.5) ng/mL SARS-CoV-2 (PCR) (Negative) Influenza A (RT-PCR) (NEGATIVE) Influenza B (RT-PCR) (NEGATIVE) RSV (PCR) (Negative) Blood Type Antibody Screen 11/22/22 11/22/22 11/22/22 Range/Units 15:35 15:35 15:35 WBC (4.5-11.0) X10^3/uL RBC (4.0-5.2) X10^6/uL Hgb (12.0-16.0) g/dL Hct (36-46) % MCV (80-100) fL MCH (26-34) PG MCHC (30-36) % RDW (11.6-14.8) % Plt Count (150-400) X10^3/uL Neut % (Auto) (50-75) % Lymph % (Auto) (25-40) % Pratt % (Auto) (3-14) % Eos % (Auto) (2-4) % Baso % (Auto) (0-2) % Neut # (Auto) (2176-2688) /uL Lymph # (Auto) (0599-0631) /uL Pratt # (Auto) (0-900) /uL Eos # (Auto) (0-450) /uL Baso # (Auto) (0-100) /uL PT (10.1-12.7) SECONDS INR (0.9-1.3) APTT (26-36) SECONDS Sodium (137-145) mmol/L Potassium (3.4-5.1) mmol/L Chloride (98-107) mmol/L Carbon Dioxide (22-32) mmol/L BUN (7-17) mg/dL Creatinine (0.52-1.04) mg/dL Estimated GFR (>60) mL/min BUN/Creatinine Ratio (6-22) Glucose (70-100) mg/dL Lactate 1.9 (0.7-2.1) mmol/L Calcium (8.4-10.2) mg/dL Total Bilirubin (0.2-1.3) mg/dL AST (14-36) IU/L ALT (<35) IU/L Alkaline Phosphatase (38-126) U/L Total Creatine Kinase (30-135) U/L CK-MB (CK-2) CK-MB (CK-2) Rel Index Troponin I (0.01-0.034) ng/mL NT-Pro-B Natriuret Pep 567 H (<125) pg/mL Total Protein (6.3-8.2) g/dL Albumin (3.5-5.0) g/dL Globulin (1.7-4.1) g/dL Albumin/Globulin Ratio (1.0-2.8) Lipase (23-300) U/L Procalcitonin (<0.5) ng/mL SARS-CoV-2 (PCR) (Negative) Influenza A (RT-PCR) (NEGATIVE) Influenza B (RT-PCR) (NEGATIVE) RSV (PCR) (Negative) Blood Type B Positive Antibody Screen Negative 11/22/22 Range/Units 16:42 WBC (4.5-11.0) X10^3/uL RBC (4.0-5.2) X10^6/uL Hgb (12.0-16.0) g/dL Hct (36-46) % MCV (80-100) fL MCH (26-34) PG MCHC (30-36) % RDW (11.6-14.8) % Plt Count (150-400) X10^3/uL Neut % (Auto) (50-75) % Lymph % (Auto) (25-40) % Pratt % (Auto) (3-14) % Eos % (Auto) (2-4) % Baso % (Auto) (0-2) % Neut # (Auto) (2237-3772) /uL Lymph # (Auto) (1608-6391) /uL Pratt # (Auto) (0-900) /uL Eos # (Auto) (0-450) /uL Baso # (Auto) (0-100) /uL PT (10.1-12.7) SECONDS INR (0.9-1.3) APTT (26-36) SECONDS Sodium (137-145) mmol/L Potassium (3.4-5.1) mmol/L Chloride (98-107) mmol/L Carbon Dioxide (22-32) mmol/L BUN (7-17) mg/dL Creatinine (0.52-1.04) mg/dL Estimated GFR (>60) mL/min BUN/Creatinine Ratio (6-22) Glucose (70-100) mg/dL Lactate (0.7-2.1) mmol/L Calcium (8.4-10.2) mg/dL Total Bilirubin (0.2-1.3) mg/dL AST (14-36) IU/L ALT (<35) IU/L Alkaline Phosphatase (38-126) U/L Total Creatine Kinase (30-135) U/L CK-MB (CK-2) CK-MB (CK-2) Rel Index Troponin I (0.01-0.034) ng/mL NT-Pro-B Natriuret Pep (<125) pg/mL Total Protein (6.3-8.2) g/dL Albumin (3.5-5.0) g/dL Globulin (1.7-4.1) g/dL Albumin/Globulin Ratio (1.0-2.8) Lipase (23-300) U/L Procalcitonin (<0.5) ng/mL SARS-CoV-2 (PCR) Negative (Negative) Influenza A (RT-PCR) Flu a negative (NEGATIVE) Influenza B (RT-PCR) Flu b negative (NEGATIVE) RSV (PCR) Negative (Negative) Blood Type Antibody Screen MDM Narrative Medical decision making narrative: This is a 27-year-old female who presents with complaint of shortness of breath, epigastric/abdominal pain. Patient is high-risk for pulmonary emboli, obstructive, SBP as well as other possible causes of her discomfort today. She is afebrile she is not hypotensive she is tachycardic with tachypnea. She defers anything for pain currently. She describes more of her issues shortness of breath. Labs including CBC, CMP, procalcitonin, lactate, troponin, BNP, coags blood cultures. Plan for CT PE but also CT abdomen pelvis with contrast as patient is high-risk for obstruction, pulmonary emboli. Patient labs patient is anemic but at her baseline, it is microcytic, she does not have a leukocytosis platelets are appropriate at 380. INR is appropriate. CMP shows sodium of 132 stable from 2 days ago normal renal function and electrolytes otherwise, AST ALT alk phosphatase elevated but bilirubin is normal and lipase normal. Troponin negative BNP is 567. Procalcitonin was negative as well. CT shows no pulmonary emboli, does show bilateral pleural effusions moderate to large increased from prior. And also pneumonia. Patient's CT shows diffuse thickening of the wall stomach, large loculated ascites with some small bowel loops prompt together presumed serosal implant disease no abnormally dilated bowel loops suggesting obstruction today, cholelithiasis. Patient's heart rate did improve after some pain medication. She is not quite as tachypn eic but she is still uncomfortable. She is had 2 doses of IV Dilaudid 1st 1 was more helpful than the 2nd. She does not appear to require thoracentesis at this time she may currently future. She is distended but not significantly so and states this is actually much better than she was. Patient family are discussing whether to try to try oral pain medications home versus come in for pain manage ment. We discussed am happy to talk with the hospitalist about keeping her. Patient family did update nursing that she is actually stopped her methadone and her oral morphine 3 days ago because her pain was controlled. They have not been continuing her on this medication. They state they still have medication left have about 20 tablets. This would be the right timeframe for patient to start having increasing pain in her tachycardic could be from withdrawal spell. Discussed with patient will restart her methadone I spoke with the pharmacist as well as our hospitalist they recommend 10 mg TID patient can double back to 20 mg tomorrow at 20 mg t.i.d. and then moved 30 mg t.i.d. she is been on several weeks and only been off for 3 days but felt to be prudent as she is still somewhat opiate naive. Spoke with the hospitalist if patient is not able to well controlled her pain starting on the 10 mg here this evening they are happy to be re-contacted if needed to titrate up and for pain management. Patient was restarted at 10 mg p.o. she had doses of IV pain medication she is feeling much improved she is alert, appropriate and prefers to be discharged home at this time. Patient has possible developing pneumonia on her CT so was started on oral antibiotic. Discussed with patient she states they are in between primary care's, asked her to contact her oncologist to see about cont inuing her pain medications and whether they would be willing to write them regularly she still has 20 tablets left home but will need an option for refills. (Jacob - signing for administrative purposes, initially thought to be signed out, however full disposition achieved prior to my involvement) Discharge Plan Departure Patient Disposition: Home Clinical Impression: Pleural effusion, Pneumonia, Atypical chest pain, Abdominal pain Activity Restrictions/Additional Instructions: Please continue your home pain medications as prescribed, if you sudden stop them you can go thru withdrawls, I would recommend titrating your medication down if needed. Take antibiotics until gone. Take methadone 10 mg every 8 hours times 24 hours, if pain is not well controlled then increase to 20 mg every 8 hours times 24 hours, if you are continuing to have significant pain then increase to your prior dose of 30 mg every 8 hours. Prescription sent to [facility] in [place]. Please return for fevers, new or worsening abdominal or chest pain, increasing shortness of breath, fevers, persistent vomiting, if you are not having any bowel movements are having increasing distention of your abdomen. Prescriptions: New amoxicillin-pot clavulanate 875-125 mg tablet 1 tab PO BID Qty: 20 0RF methadone 10 mg tablet 10 mg PO TID Qty: 10 0RF morphine 30 mg tablet 30 mg PO Q6H PRN (Reason: pain) Qty: 10 0RF No Action olanzapine [Zyprexa Zydis] 10 mg Tablet,Disintegrating 5 mg PO DAILY Qty: 30 0RF morphine 15 mg Tablet 30 mg PO Q4H PRN (Reason: Pain, Severe (7-10)) Qty: 60 0RF hydroxyzine pamoate 25 mg Capsule 25 mg PO Q6HR PRN (Reason: Itching) Qty: 30 0RF pantoprazole [Protonix] 40 mg tablet,delayed release (DR/EC) 40 mg PO DAILY Qty: 30 0RF ondansetron 8 mg tablet,disintegrating 8 mg PO Q8H PRN (Reason: nausea and vomiting) Qty: 30 0RF Senna Plus 8.6-50 mg capsule 2 tab-cap PO BID Qty: 60 0RF methadone 10 mg Tablet 10 mg PO Q8H Qty: 21 0RF hydrocortisone 1 % Cream 1 applic topical TID PRN (Reason: Itching) Qty: 100 0RF lidocaine 5 % Adhesive Patch,Medicated 1 ea topical BEDTIME Qty: 30 0RF hydroxyzine pamoate 25 mg Capsule 25 mg PO Q4HR PRN (Reason: Nausea) Qty: 100 0RF methadone 10 mg Tablet 20 mg PO Q8H Qty: 42 0RF scopolamine base [Transderm-Scop] 1 mg over 3 days Patch 3 Day 1 patch topical Q72H Qty: 10 0RF Referrals: Yaneli Brewer DO [Primary Care Provider] - Stand Alone Forms: Patient Portal/API
[2022-11-22] MEDS: HYDROMORPHONE 1 MG INJ IV ×3 (15:44→19:04)
[2022-11-22] MEDS: SODIUM CHLORIDE 0.9% 1,000 ML 1000 ML IV (15:46)
[2022-11-22 15:53] LABS: Add Manual Diff / Slide Review NO; Basophils Absolute Auto 0 /uL (0-100); Basophils Percent Auto 0.3 % (0-2); Eosinophils Absolute Auto 0 /uL (0-450); Eosinophils Percent Auto 0.1 % (2-4); Hematocrit 29.2 % (36-46); Hemoglobin 9.6 g/dL (12.0-16.0); Lymphocytes Absolute Auto 900 /uL (1100-4500); Lymphocytes Percent Auto 12.8 % (25-40); Mean Corpuscular Hemoglobin 24.2 PG (26-34); Mean Corpuscular Volume 73.4 fL (80-100); Monocytes Absolute Auto 100 /uL (0-900); Monocytes Percent Auto 1.8 % (3-14); Neutrophils Absolute Auto 6100 /uL (1500-7000); Platelet Count 380 X10^3/uL (150-400); Red Blood Cell Count 3.98 X10^6/uL (4.0-5.2); Red Cell Distribution Width 18.7 % (11.6-14.8); White Blood Cell Count 7.2 X10^3/uL (4.5-11.0)
[2022-11-22 16:00] LABS: INR 1.1 (0.9-1.3)
[2022-11-22 16:02] LABS: PTT Partial Thromboplastin Tim 30 SECONDS (26-36)
[2022-11-22 16:06] LABS: Lactate (Lactic Acid) 1.9 mmol/L (0.7-2.1)
[2022-11-22 16:07] LABS: Alanine Aminotransferase 37 IU/L (<35); Albumin 2.9 g/dL (3.5-5.0); Albumin Globulin Ratio 0.9 (1.0-2.8); Alkaline Phosphatase 230 U/L (38-126); Aspartate Aminotransferase 46 IU/L (14-36); BUN Creatinine Ratio 31.6 (6-22); Bilirubin Total 0.8 mg/dL (0.2-1.3); Blood Urea Nitrogen 12 mg/dL (7-17); Calcium 8.3 mg/dL (8.4-10.2); Carbon Dioxide 24 mmol/L (22-32); Chloride 100 mmol/L (98-107); Creatine Kinase 22 U/L (30-135); Estimated Glomerular Filt Rate > 60 mL/min (>60); Globulin 3.3 g/dL (1.7-4.1); Glucose 118 mg/dL (70-100); HEMOLYSIS < 15 (0-50); Lipase 171 U/L (23-300); Potassium 3.6 mmol/L (3.4-5.1); Sodium 132 mmol/L (137-145); Total Protein 6.2 g/dL (6.3-8.2)
[2022-11-22 16:16] LABS: NT-proBNP (BNP-Adult 18+) 567 pg/mL (<125)
[2022-11-22 16:19] LABS: Troponin I < 0.012 ng/mL (0.01-0.034)
[2022-11-22 16:23] LABS: Procalcitonin 0.07 ng/mL (<0.5)
[2022-11-22] MEDS: PIPERACILLIN/TAZO 4.5 GM in SODIUM CHLORIDE 0.9% 100 ML IV (17:18)
[2022-11-22 17:26] LABS: Influenza A - CEPHEID Flu A NEGATIVE (NEGATIVE); Influenza B - CEPHEID Flu B NEGATIVE (NEGATIVE); Respiratory Syncytial Virus Negative (Negative)
[2022-11-22] MEDS: fentaNYL 100 MCG/2 ML INJ 50 MCG IV (17:30)
[2022-11-22 17:35] LABS: COVID-19 CEPHEID 4-PLEX PCR Negative (Negative)
[2022-11-22] MEDS: METHADONE 10 MG TABLET PO (18:47)
[2022-11-22] MEDS: NALOXONE 4 MG NASAL SPRAY MISC (20:13)
== END 2022-11-22 20:22 | disposition home or self-care (01) ==
PROVIDERS: Emergency Medicine; Emergency Provider Emergency Medicine; PCP Family Medicine
DX: J90 Pleural effusion, not elsewhere classified (principal); J18.9 Pneumonia, unspecified organism; R07.89 Other chest pain; R10.13 Epigastric pain; R00.0 Tachycardia, unspecified; Z20.822 Contact with and (suspected) exposure to COVID-19
CPT/HCPCS: 0241U; 36415; 71045; 71275; 74177; 80053; 82550; 83605; 83690; 83880; 84145; 84484; 85025; 85610; 85730; 86850; 86900; 86901; 87040; 93005; 93010; 96365; 96375; 96376; 99284; A9270; J1170; J1642; J2543; J3010; Q9967

== ENCOUNTER → 2022-11-27 14:19 | Outpatient (CLI) | payer OTHER, MEDICAID, SELFPAY ==
[2022-11-07 01:24] VITALS: BMI 30.5
--- NOTE | 2022-11-27 14:20 | DI.US.S_ITS ---
PROCEDURE: US PARACENTESIS INDICATIONS: ASCITIES TECHNIQUE: The indications, alternatives, benefits, risks, and complications of the procedure were explained to the patient. Written informed consent was obtained and placed in the chart. The abdomen and pelvis were examined sonographically, and an appropriate site was chosen for paracentesis. The skin was prepared and draped in the usual sterile fashion, and 1% lidocaine was infiltrated from the skin down through the peritoneal surface. A 19-gauge catheter-covered needle was then introduced into the peritoneal space, the catheter was advanced and the needle was withdrawn, and thereafter peritoneal fluid was withdrawn. The catheter was then removed and a dressing was applied. The fluid was discarded if the clinician did not order diagnostic testing of the fluid. COMPARISON: [facility], US, US ABDOMEN LIMITED, 10/24/2022, 9:40. [facility], CT, CT ABDOMEN PELVIS W CON, 10/23/2022, 22:22. [facility], US, US PARACENTESIS, 10/17/2022, 14:51. FINDINGS: Access site: Left lower quadrant Needle: One-Step centesis catheter with introducer needle. Fluid volume and description: 3000, clear Fluid sent for diagnostic testing: None Medications: 1% lidocaine for local anaesthesia. Complications: None. Patient was anxious during the procedure. IMPRESSION: Successful ultrasound-guided therapeutic paracentesis. 3 L clear fluid removed. Dictated by: Quinn Sosa M.D. on 11/27/2022 at 15:29 Approved by: Quinn Sosa M.D. on 11/27/2022 at 15:31
== END ==
PROVIDERS: PCP Family Medicine; Referring Provider Internal Medicine Medical Oncology; Visit Provider Internal Medicine Medical Oncology
DX: C16.9 Malignant neoplasm of stomach, unspecified (principal); R18.8 Other ascites
CPT/HCPCS: 49083

== ENCOUNTER → 2022-12-09 09:01 | Outpatient (CLI) | payer OTHER, MEDICAID, SELFPAY ==
[2022-11-07 01:24] VITALS: BMI 30.5
--- NOTE | 2022-12-09 09:01 | DI.US.S_ITS ---
PROCEDURE: US ABDOMEN LIMITED INDICATIONS: ASCITIES TECHNIQUE: Real-time focused scanning was performed of the abdomen, with image documentation. COMPARISON: [facility], , ABDOMEN LIMITED, 11/06/2022, 16:06. FINDINGS: Multiple grayscale images of the abdomen were acquired to evaluate for volume of ascites for scheduled paracentesis. There is a very small amount of ascites noted in the right lower quadrant which is not amenable for paracentesis at this time. IMPRESSION: Minimal amount of right lower quadrant ascites not amenable for paracentesis. Dictated by: Michael Logan M.D. on 12/09/2022 at 9:43 Approved by: Michael Logan M.D. on 12/09/2022 at 9:44
== END ==
PROVIDERS: PCP Family Medicine; Referring Provider Internal Medicine Medical Oncology; Visit Provider Internal Medicine Medical Oncology
DX: R18.8 Other ascites (principal); Z98.890 Other specified postprocedural states
CPT/HCPCS: 76705

== ENCOUNTER → 2022-12-25 09:02 | Outpatient (CLI) | payer OTHER, MEDICAID, SELFPAY ==
[2022-11-07 01:24] VITALS: BMI 30.5
--- NOTE | 2022-12-25 09:05 | DI.CT.S_ITS ---
PROCEDURE: CT CHEST ABD PEL W CON INDICATIONS: gastric cancer on treatment TECHNIQUE: After the administration of oral and intravenous contrast, axial sections acquired from the supraclavicular neck to the pubic symphysis. Coronal and sagittal reformats were performed. For radiation dose reduction, the following was used: automated exposure control, adjustment of mA and/or kV according to patient size. COMPARISON: [facility], CT, CT ABDOMEN PELVIS W CON, 11/06/2022, 17:46. [facility], CT, CT ABDOMEN PELVIS W CON, 11/22/2022, 15:47. [facility], CT, CT ANGIO CHEST PE PROTOCOL, 11/22/2022, 15:47. FINDINGS: CHEST: Lower Neck: No enlarged lymph nodes. Axillae: No enlarged lymph nodes. Chest Wall: Right chest port present with tip of the catheter terminating at the lower internal jugular vein. A left PICC is present with tip of the catheter terminating near the superior cavoatrial junction. Lungs: Resolution of bilateral pleural effusions. Decrease in patchy consolidative and ground-glass opacities in the right upper and middle lobes. Heart: No pericardial effusion. Thoracic Vessels: The aorta and pulmonary arteries demonstrate normal size. Mediastinum and Jessica: No enlarged lymph nodes. Esophagus: No wall thickening. ABDOMEN: Liver: Unremarkable. Gallbladder: Cholelithiasis as before. Biliary ducts: Unremarkable. Pancreas: Unremarkable. Spleen: Unremarkable. Adrenal Glands: Unremarkable. Kidneys and Ureters: Unremarkable. Stomach and Bowel: The stomach is challenging to evaluate by imaging however previously demonstrated gastric wall thickening appears decreased. Oral contrast has reached the level of the rectum without evidence of mechanical small bowel obstruction. Peritoneum: Significant interval decrease in abdominal and pelvic free fluid. Peritoneal thickening persists. Infiltration of the mesentery is present and there is possible omental caking. Abdominal Nodes: No obvious new or worsening adenopathy. Above mesenteric findings make evaluation for adenopathy difficult. Vessels: Aorta and inferior vena cava are normal in size. PELVIS: Pelvic Organs: Unremarkable. Bladder: Unremarkable. Pelvic Nodes: No enlarged lymph nodes. Bones: Unremarkable. IMPRESSION: 1. Resolution of bilateral pleural effusions. Interval decrease in right lung consolidative and ground-glass opacities. 2. Significant decrease in abdominal and pelvic free fluid. 3. Peritoneal thickening persists. Infiltration of the mesentery and possible omental caking is present also suspicious for metastatic disease. Attention on follow-up is recommended. Dictated by: Cameron Smith M.D. on 12/25/2022 at 13:15 Approved by: Cameron Smith M.D. on 12/25/2022 at 15:15
== END ==
PROVIDERS: PCP Family Medicine; Referring Provider Internal Medicine Medical Oncology; Visit Provider Internal Medicine Medical Oncology
DX: C16.9 Malignant neoplasm of stomach, unspecified (principal)
CPT/HCPCS: 71260; 74177; Q9967

== ENCOUNTER → 2022-12-30 13:54 | Outpatient (CLI) | payer OTHER, MEDICAID, SELFPAY ==
[2022-11-07 01:24] VITALS: BMI 30.5
--- NOTE | 2022-12-30 13:56 | DI.US.S_ITS ---
PROCEDURE: US ABDOMEN LIMITED INDICATIONS: HX ASCITIES TECHNIQUE: Real-time scanning was performed of the abdominal and retroperitoneal organs, with image documentation. COMPARISON: [facility], CT, CT CHEST ABD PEL W CON, 12/25/2022, 10:40. [facility], US, US ABDOMEN LIMITED, 12/09/2022, 9:08. FINDINGS: Minimal ascites not adequate for paracentesis. IMPRESSION: Minimal ascites, not adequate for paracentesis. Dictated by: Jewels Moses M.D. on 12/30/2022 at 16:24 Approved by: Jewels Moses M.D. on 12/30/2022 at 16:24
[2022-12-31 12:41] LABS: Carcinoembryonic Antigen 2.5 ng/mL (0.1-3.0)
== END ==
PROVIDERS: PCP Family Medicine; Referring Provider Internal Medicine Medical Oncology; Visit Provider Internal Medicine Medical Oncology
DX: C16.9 Malignant neoplasm of stomach, unspecified (principal); R18.0 Malignant ascites
CPT/HCPCS: 76705; 82378

== ENCOUNTER → 2023-01-02 13:32 | Outpatient (CLI) | payer OTHER, MEDICAID, SELFPAY ==
[2022-11-07 01:24] VITALS: BMI 30.5
--- NOTE | 2023-01-02 13:33 | DI.RAD.S_ITS ---
PROCEDURE: XR CHEST 2V INDICATIONS: chest pain TECHNIQUE: 2 views of the chest were acquired. COMPARISON: [facility], CT, CT ANGIO CHEST PE PROTOCOL, 11/22/2022, 15:47. [facility], CR, XR CHEST 1V, 11/22/2022, 15:23. FINDINGS: Surgical changes and devices: Right Port-A-Cath is present with distal tip overlying the proximal SVC. Left PICC line is present overlying the mid SVC. Lungs and pleura: Lungs are clear. No pleural effusions or pneumothorax. Mediastinum: Mediastinal contours are normal. Heart size is normal. Bones and chest wall: No suspicious bony abnormalities. Soft tissues appear unremarkable. IMPRESSION: No acute pulmonary process. Dictated by: Jewels Moses M.D. on 01/02/2023 at 14:23 Approved by: Jewels Moses M.D. on 01/02/2023 at 14:24
== END ==
PROVIDERS: PCP Family Medicine; Referring Provider Internal Medicine Hematology & Oncology; Visit Provider Internal Medicine Hematology & Oncology
DX: C16.9 Malignant neoplasm of stomach, unspecified (principal); R11.2 Nausea with vomiting, unspecified; R07.9 Chest pain, unspecified
CPT/HCPCS: 71046

== ENCOUNTER → 2023-01-06 14:15 | Outpatient (CLI) | payer OTHER, MEDICAID, SELFPAY ==
[2022-11-07 01:24] VITALS: BMI 30.5
--- NOTE | 2023-01-06 | DI.US.S_ITS ---
PROCEDURE: US ABDOMEN LIMITED INDICATIONS: POSSIBLE ASCITES TECHNIQUE: Real-time focused scanning was performed of the abdomen, with image documentation. COMPARISON: [facility], US, US ABDOMEN LIMITED, 12/30/2022, 14:34. FINDINGS: No free fluid is seen. IMPRESSION: No free fluid is seen. No paracentesis performed. Dictated by: Santi Nieves M.D. on 01/06/2023 at 14:19 Approved by: Santi Nieves M.D. on 01/06/2023 at 14:19
== END ==
PROVIDERS: PCP Family Medicine; Referring Provider Internal Medicine Medical Oncology; Visit Provider Internal Medicine Medical Oncology
DX: C16.0 Malignant neoplasm of cardia (principal); C78.6 Secondary malignant neoplasm of retroperitoneum and peritoneum
CPT/HCPCS: 76705

== ENCOUNTER → 2023-01-22 16:44 | Outpatient (CLI) | payer OTHER, MEDICAID, SELFPAY ==
[2022-11-07 01:24] VITALS: BMI 30.5
--- NOTE | 2023-01-22 16:45 | DI.MRI.S_ITS ---
PROCEDURE: MR HEAD/BRAIN WO/W CON INDICATIONS: severe headache, dizziness TECHNIQUE: Noncontrast axial T1 spin echo, axial T2 fast spin echo, sagittal and axial FLAIR, coronal T2 fast spin echo, axial gradient echo, axial diffusion and ADC through the brain. After the administration of contrast, axial and coronal and sagittal 3D VIBE or T1 spin echo with fat saturation through the brain. COMPARISON: None. FINDINGS: Image quality: This examination is limited by involuntary motion artifact. CSF Spaces: Basal cisterns are patent. No extra-axial fluid collections. Ventricles are normal in size and shape. Brain: No midline shift. No intracranial bleeds or masses. No abnormal intracranial enhancement. The brainstem appears normal. Diffusion-weighted images demonstrate no acute ischemic insults. No chronic ischemic insults. Normal intravascular flow voids are present. In this patient with this given history, scrutiny is given to cerebellopontine angle cisterns and to the internal auditory canals. To the limits of this standard protocol study, no masses or abnormal enhancement can be seen within these regions. Skull and face: Calvarial marrow is normal in signal. Orbits appear normal. Sinuses: Sinuses and mastoids appear clear. IMPRESSION: Unremarkable intracranial study, without an imaging explanation found for the patient's presenting history of headache. No masses or abnormal enhancement can be seen. Dictated by: Santi Nieves M.D. on 01/22/2023 at 16:57 Approved by: Santi Nieves M.D. on 01/22/2023 at 16:59
== END ==
PROVIDERS: PCP Family Medicine; Referring Provider Internal Medicine Hematology & Oncology; Visit Provider Internal Medicine Hematology & Oncology
DX: C16.9 Malignant neoplasm of stomach, unspecified (principal); R51.9 Headache, unspecified; R42 Dizziness and giddiness
CPT/HCPCS: 70553; A9579

== ENCOUNTER → 2023-03-18 06:56 | Outpatient (CLI) | payer OTHER, MEDICAID, SELFPAY ==
[2022-11-07 01:24] VITALS: BMI 30.5
--- NOTE | 2023-03-18 06:57 | DI.US.S_ITS ---
PROCEDURE: US ABDOMEN COMPLETE INDICATIONS: METASTATIC GASTRIC CANCER ?RECURRENT ASCITES TECHNIQUE: Real-time scanning was performed of the abdominal and retroperitoneal organs, with image documentation. COMPARISON: [facility], , US ABDOMEN LIMITED, 01/06/2023, 14:24. FINDINGS: Liver: Liver is normal in size and homogeneous in echotexture. Gallbladder: A mobile gallstone is present. No wall thickening or sonographic De Souza sign. Biliary ducts: Intrahepatic bile ducts are non-dilated. Extrahepatic bile duct caliber measures 5 mm. Normal is 6-7 mm or less in diameter, or 10 mm or less post-cholecystectomy. Pancreas: Visualized portions of the pancreas are sonographically normal. Spleen: Spleen is normal in size and homogeneous in echotexture. Kidneys: Kidneys are normal in size and echotexture. Right kidney measures 10.6 cm long; left kidney measures 10.0 cm long. No hydronephrosis or nephrolithiasis. No solid masses. Aorta: Visualized aorta is normal in caliber at less than 3 cm. Iliacs: Not well visualized due to bowel gas. IVC: Intrahepatic inferior vena cava is patent. Miscellaneous: No free abdominal fluid. IMPRESSION: 1. No abdominal free fluid identified sonographically. 2. Cholelithiasis without evidence of acute cholecystitis. Dictated by: Cameron Smith M.D. on 03/18/2023 at 13:30 Approved by: Cameron Smith M.D. on 03/18/2023 at 13:33
== END ==
PROVIDERS: PCP Family Medicine; Referring Provider Internal Medicine Hematology & Oncology; Visit Provider Internal Medicine Hematology & Oncology
DX: C16.9 Malignant neoplasm of stomach, unspecified (principal); Z15.09 Genetic susceptibility to other malignant neoplasm; R18.0 Malignant ascites; K80.20 Calculus of gallbladder without cholecystitis without obstruction
CPT/HCPCS: 76700

== ENCOUNTER → 2023-04-08 08:30 | Oncology outpatient (ONC) | payer OTHER, MEDICAID, SELFPAY ==
[2022-10-17 14:11] VITALS: BMI 26.7
--- NOTE | 2022-11-04 10:49 | PC.NURSE ---
Addendum entered by Anupama Marshall R.N. 11/04/22 12:28: Spoke to Dr. Mario about LE edema. As inpatient, pt received 1 dose PO lasix 20mg and 40mg IV x8 doses during her admission. Orders placed for lasix 20mg PO daily #20. This RN will review pt with Dr. Collier tomorrow 11/05/22. Attempted to reach him via phone x2 Picc line placement ordered. This RN called pt and informed her. If she experiences increased LE edema, edema else where, SOB or chest pain, she needs to go to ED. Pt verbalized understanding. Called [facility] and LVM about PICC and PO lasix ordered. Original Note: [facility] nurse LM about TPN and LE edema: This RN called and spoke to [facility] RN. Pt dc'd from [facility] on Friday11/02/22, Picc dc'd prior to discharge and TPN is now infusing through the port.
--- NOTE | 2022-11-05 14:48 | PC.NURSE ---
Pt's brother, Giuliano calls to report: pt's HR 115-120 resting and last night increased to 130's x10min. Blood sugar 2 hrs after start of TPN 114 and 2 hrs after TPN finished Blood sugar 55. This RN told Giuliano to have pt put a small amount of granulated sugar under her tongue since she is not able to keep liquid or food down without vomiting. Will also report this to [facility]. Educated Giuliano if pt is having symptoms of tachycardia- dizziness, chest pain, and/or SOB, she needs to go to ED. 1515: Giuliano just calls back stating pt's abdomen is get hard again and she is hurting. Pt is on Fentanyl patch, methadone, and morphine. Dr. Collier notified and stated pt will need to go to ED since she is between insurances. This RN spoke with ED charge loader, Belle to give report on pt and ask if they could get a PICC line in her too. Called Giuliano and informed him to take pt to ED.
--- NOTE | 2022-11-05 15:41 | PC.NURSE ---
Dr. Collier notified: Pt discharged from hospital last Friday. Picc line was removed and TPN now infusing through port at night x15 hrs. He orders new PICC line to be replaced. Pt experienced increased LE edema and Dr. Mario order Lasix 20mg po daily. Dr. Collier states he did order TPN for pt and [facility] will manage. Dr. Collier is ok with pt having RN Carlos on 11/07/22 with labs- CBC, CMP, Mag, Phos.
--- NOTE | 2022-11-06 12:07 | PC.NURSE ---
Pt's sister in law, JOSE calls to report: The pain medication is not lasting long enough. Niecy has right lower back pain. This morning I gave her Ondansetron, Oanzapine. At 1130, she got Methadone. ED did not have a paracentesis done on pt yesterday. Per [facility], there was not a large enough fluid pocket to do one. Double lumen picc placed and record of it scanned in. this RN faxed ED records, Picc record and CXR to [facility]. This RN reviewed pain med schedule with JOSE and how to administer it for better coverage for pain. JOSE Baum's number [phone] Pt does not have a . She has family helping her.
--- NOTE | 2022-11-06 14:49 | PC.NURSE ---
Pain control: This RN spoke to pt just now about if her pain is being controlled. She says no and reports 8 out of 10 pain. I have right side and low back sharp pain. Yes, my belly is harder since yesterday. Giuliano states TPN started at midnight last night due to pt being in ED yesterday. It'll be done today around 3pm. [facility]'s pharmacist, Loretta called concerned about pt's fluid balance and electrolytes. Dr. Collier notified and agrees with hospital admission today. This RN spoke to director school of nursing, Muriel and ED nurse, Jan about pt coming back to ED today for pain control. This RN called and spoke to Inecy about going back to ED. She agrees. Yes, I want to get admitted if it means this pain will be taken care of.
[2022-11-07 01:24] VITALS: BMI 30.5
--- NOTE | 2022-11-07 14:01 | ONC.SCHED ---
Covermymeds test trips: Came through on the fax needing a PA. This steam box tender gave to Lesa Padilla to follow up on since patient is still admitted.
--- NOTE | 2022-11-13 11:08 | P.CONONC_ITS ---
History of Present Illness - Data of Consult Primary Care Provider: Yaneli Brewer, DO - Consult Narrative Reason for consult: Metastatic gastric cancer Narrative: Niecy Stokes is a 27 year old female Who was recently hospitalized [place] [facility] [place] [id number] ongoing abdominal pain and [address] of the abdomen showed diffuse peritoneal carcinomatosis. She subsequently underwent EGD on 10/18/2022 which showed a GE junction mass with diffuse gastric wall changes pathology showed poorly differentiated adenocarcinoma. The patient also had malignant ascites and had had multiple paracentesis. Due to poor nutrition the patient was also on TPN which is continued chronically. While she was in the hospital she received her 1st dose of FOLFOX plus nivolumab on 10/30/2022 after I initially saw her at that point in time. Since then she was discharged and presents today for follow-up for ongoing management. She was recently seen at the [facility] and was not felt to be a surgical candidate. Further systemic treatment was recommended from their standpoint. She continues to have ascites associated with her peritoneal carcinomatosis and associated right-sided hydronephrosis, fluid distention and thickening of the bowels in a moderate right-sided pleural effusion. CC: Gurinder Collier MD Home Medications and Allergies Home Medications Medication Instructions Recorded Confirmed Type hydroxyzine pamoate 25 mg capsule 25 mg PO Q6HR PRN Itching #30 caps 11/02/22 11/07/22 Rx morphine 15 mg immediate release 30 mg PO Q4H PRN Pain, Severe 11/02/22 11/07/22 Rx tablet (7-10) #60 tabs olanzapine 10 mg disintegrating 5 mg PO DAILY #30 tabs 11/02/22 11/07/22 Rx tablet (Zyprexa Zydis) ondansetron 8 mg disintegrating 8 mg PO Q8H PRN nausea and 11/02/22 11/07/22 Rx tablet vomiting #30 tabs pantoprazole 40 mg tablet,delayed 40 mg PO DAILY #30 tabs 11/02/22 11/07/22 Rx release (Protonix) sennosides 8.6 mg-docusate sodium 2 tab-cap PO BID #60 caps 11/02/22 11/07/22 Rx 50 mg capsule (Senna Plus) furosemide 20 mg tablet (Lasix) 20 mg PO DAILY #30 tabs 11/04/22 11/07/22 Rx hydrocortisone 1 % topical cream 1 applic topical TID PRN Itching 11/11/22 Rx #100 grams hydroxyzine pamoate 25 mg capsule 25 mg PO Q4HR PRN Nausea #100 caps 11/11/22 Rx lidocaine 5 % topical patch 1 ea topical BEDTIME #30 ea 11/11/22 Rx methadone 10 mg tablet 10 mg PO Q8H #21 tabs 11/11/22 Rx methadone 10 mg tablet 20 mg PO Q8H #42 tabs 11/11/22 Rx scopolamine base 1 mg over 3 days 1 patch topical Q72H #10 ea 11/11/22 Rx transdermal patch (Transderm-Scop) Allergies Allergy/AdvReac Type Severity Reaction Status Date / Time No Known Drug Allergies Allergy Verified 11/06/22 15:14 Medical History - Medical, Surgical, Family History Medical History: Medical History (Last Reviewed 11/07/22 @ 00:30 by Jeffrey Milan MD) Healthy adult Family History: Family History (Last Reviewed 11/07/22 @ 00:30 by Jeffrey Milan MD) Father Cancer Diabetes mellitus Grandmother Diabetes mellitus Father Cancer Aunt Cancer - Social History Smoking Status: Former smoker Review of Systems - Patient Self-Reported Symptoms SR Constitution: Weight loss/gain, Fatigue/Malaise SR Gastrointestinal issues: Poor or no appetite, Abdominal pain (Distended distended abdomen) Exam - Constitutional positive mild distress, positive chronically ill appearing - Routine Abdominal Exam Present: distended (Distended abdomen with positive fluid wave) Results - Imaging Additional studies: Procedures Drainage of Peritoneal Cavity, Percutaneous Approach (10/16/22) Drainage of Peritoneal Cavity, Percutaneous Approach, Diagnostic (10/16/22) Excision of Esophagus, Via Natural or Artificial Opening Endoscopic, Diagnostic (10/16/22) Excision of Stomach, Via Natural or Artificial Opening Endoscopic, Diagnostic (10/16/22) Fluoroscopy of Right Subclavian Vein, Guidance (10/16/22) Insertion of Infusion Device into Right Subclavian Vein, Percutaneous Approach (10/16/22) Insertion of Infusion Device into Superior Vena Cava, Percutaneous Approach (10/16/22) Insertion of Totally Implantable Vascular Access Device into Chest Subcutaneous Tissue and Fascia, Open Approach (10/16/22) Introduction of Nutritional Substance into Peripheral Vein, Percutaneous Approach (02/08/23) Transfusion of Nonautologous Red Blood Cells into Central Vein, Percutaneous Approach (10/16/22) Assessment and Plan (1) Gastric adenocarcinoma Status: Acute Niecy Stokes is a 27 year old female Who was recently hospitalized [place] [facility] [place] [id number] ongoing abdominal pain and [address] of the abdomen showed diffuse peritoneal carcinomatosis. She subsequently underwent EGD on 10/18/2022 which showed a GE junction mass with diffuse gastric wall changes pathology showed poorly differentiated adenocarcinoma. The patient also had malignant ascites and had had multiple paracentesis. Due to poor nutrition the patient was also on TPN which is continued chronically. While she was in the hospital she received her 1st dose of FOLFOX plus nivolumab on 10/30/2022 after I initially saw her at that point in time. Since then she was discharged and presents today for follow-up for ongoing management. She was recently seen at the [facility] and was not felt to be a surgical candidate. Further systemic treatment was recommended from their standpoint. She continues to have ascites associated with her peritoneal carcinomatosis and associated right-sided hydronephrosis, fluid distention and thickening of the bowels in a moderate right-sided pleural effusion. Today I would discussed again her diagnosis with his metastatic gastric adenoca rcinoma. I explained to her the treatment is largely based on palliative therapy systemic therapy which will consist of FOLFOX plus nivolumab. The goal is improving quality and quantity of life. The patient has good understanding and understands that this is largely palliative based treatment. She already has a IV access placement and we will plan to resume her FOLFOX plus nivolumab on an outpatient basis. Recall that her father had gastric cancer at an early age in his 40s. The patient has 2 daughters and wishes to have genetic testing which we will arrange for today.
[2022-11-13 11:21] VITALS: BP 117/75; PULSE 122; RESP 20; TEMP 36.6; O2SAT 98
--- NOTE | 2022-11-13 12:01 | ONC.MSW ---
Addendum entered and electronically signed by Lesa Villalba MSW 11/13/22 12:07: *Pt has received a Chemo Quilt. Original Note: Description: New Pt F/F Visit Activity: This GHOST WRITER met with pt and her brother following her provider visit in order to discuss resources and assistance available to her through this GHOST WRITER to support her care and support needs. Pt does look better today than she had while she was in the hospital, however she did not remember meeting this GHOST WRITER while she was inpt here at . Discussed reimbursement for Ensure, and provided several samples and coupons. Will plan to meet with her more at length once she returns to begin treatment next week. No further needs identified at this time.
[2022-11-13 12:08] LABS: Add Manual Diff / Slide Review NO; Basophils Absolute Auto 0 /uL (0-100); Basophils Percent Auto 0.8 % (0-2); Eosinophils Absolute Auto 100 /uL (0-450); Eosinophils Percent Auto 2.6 % (2-4); Hematocrit 21.6 % (36-46); Lymphocytes Absolute Auto 500 /uL (1100-4500); Lymphocytes Percent Auto 26.2 % (25-40); Mean Corpuscular HGB Conc 31.9 % (30-36); Mean Corpuscular Volume 75.4 fL (80-100); Monocytes Absolute Auto 400 /uL (0-900); Monocytes Percent Auto 20.3 % (3-14); Neutrophils Absolute Auto 1000 /uL (1500-7000); Neutrophils Percent Auto 50.1 % (50-75); Platelet Count 340 X10^3/uL (150-400); Red Blood Cell Count 2.87 X10^6/uL (4.0-5.2); Red Cell Distribution Width 17.6 % (11.6-14.8)
[2022-11-13 12:10] LABS: Hemoglobin 6.9 g/dL (12.0-16.0)
[2022-11-13 12:18] LABS: Alanine Aminotransferase 16 IU/L (<35); Albumin 2.5 g/dL (3.5-5.0); Albumin Globulin Ratio 0.8 (1.0-2.8); Alkaline Phosphatase 135 U/L (38-126); Aspartate Aminotransferase 23 IU/L (14-36); BUN Creatinine Ratio 38.1 (6-22); Bilirubin Total 0.6 mg/dL (0.2-1.3); Blood Urea Nitrogen 16 mg/dL (7-17); Calcium 7.6 mg/dL (8.4-10.2); Carbon Dioxide 26 mmol/L (22-32); Chloride 99 mmol/L (98-107); Estimated Glomerular Filt Rate > 60 mL/min (>60); Globulin 3.2 g/dL (1.7-4.1); Glucose 114 mg/dL (70-100); HEMOLYSIS < 15 (0-50); Potassium 4.2 mmol/L (3.4-5.1); Sodium 129 mmol/L (137-145); Total Protein 5.7 g/dL (6.3-8.2)
[2022-11-13 12:48] LABS: Cancer Antigen 125 269 U/mL (0-35); Carcinoembryonic Antigen 1.6 ng/mL (0.1-3.0)
--- NOTE | 2022-11-13 15:21 | PC.NURSE ---
Hbg 6.8: Dr. Collier orders 1 unit PRBC. Pt coming back in today to get banded and will be transfused tomorrow. This RN spoke to [facility] about this pt getting FOLFOX starting next week. Orders, prog notes and face sheet faxed to infusion [facility] ([facility]). Dr. Collier wants pt to get same 46hr dose as in the hospital (4000mg).
--- NOTE | 2022-11-13 15:54 | PC.NURSE ---
MYRIAD TEST SENT TODAY.
[2022-11-14 13:19] VITALS: BP 128/76; PULSE 129; RESP 16; TEMP 36.5; O2SAT 98
[2022-11-14 13:48] VITALS: BP 128/76; PULSE 129; RESP 16; TEMP 37
--- NOTE | 2022-11-14 13:51 | TAR.TRANSNT ---
line had to be purged of air which took more time.
[2022-11-14 14:04] VITALS: BP 121/78; PULSE 114; RESP 16; TEMP 37.1
[2022-11-14 17:10] VITALS: BP 135/87; PULSE 110; RESP 16; TEMP 37.1
--- NOTE | 2022-11-14 17:50 | PC.NURSE ---
Red lumen oc power picc is occluded, unable to flush or draw, blue functions. This nurse instructed patient and her brother to ask [facility] to try when they come for the TPN administration and to flush the line each time they come. They were also informed to have the TPN on 11/20 (chemo day) administered through the PICC as the port will be needed for chemo.
[2022-11-18] MEDS: ALTEPLASE 2 MG/2 ML VIAL IV ×2 (14:02)
--- NOTE | 2022-11-18 14:48 | PC.NURSE ---
PICC line declotting Patient here today with double lumen PICC line. Red lumen will not flush at all. Purple lumen flushes with saline but no blood return. TPA used in both PICC lumens. Red lumen able to flush after drawing negative pressure with [address] way stopcock. Both lumens drawing blood after 30 min dwell time with TPA. PICC flushed with saline and heparin per protocol.
--- NOTE | 2022-11-19 14:25 | PC.NURSE ---
[facility] rep Edy wished to clarify per email whether only germline testing to be done after the blood sample and requisition was sent in last week. [facility] had filled out all kit requisitions to include the testing of tissue. This nurse confirmed with Edy that only germline testing was requested by Dr. Collier.
[2022-11-20 09:28] LABS: Add Manual Diff / Slide Review YES; Hematocrit 27.4 % (36-46); Hemoglobin 8.7 g/dL (12.0-16.0); Mean Corpuscular Hemoglobin 24.1 PG (26-34); Mean Corpuscular Volume 75.4 fL (80-100); Platelet Count 339 X10^3/uL (150-400); Red Blood Cell Count 3.63 X10^6/uL (4.0-5.2); Red Cell Distribution Width 18.7 % (11.6-14.8); White Blood Cell Count 7.8 X10^3/uL (4.5-11.0)
[2022-11-20 09:35] VITALS: BP 128/85; PULSE 108; RESP 16; TEMP 36.8; O2SAT 98
[2022-11-20 09:41] LABS: Alanine Aminotransferase 21 IU/L (<35); Albumin 2.1 g/dL (3.5-5.0); Albumin Globulin Ratio 0.7 (1.0-2.8); Alkaline Phosphatase 190 U/L (38-126); Aspartate Aminotransferase 25 IU/L (14-36); BUN Creatinine Ratio 37.8 (6-22); Bilirubin Total 0.5 mg/dL (0.2-1.3); Blood Urea Nitrogen 14 mg/dL (7-17); Calcium 7.2 mg/dL (8.4-10.2); Carbon Dioxide 27 mmol/L (22-32); Chloride 102 mmol/L (98-107); Estimated Glomerular Filt Rate > 60 mL/min (>60); Glucose 123 mg/dL (70-100); HEMOLYSIS < 15 (0-50); Potassium 3.9 mmol/L (3.4-5.1); Sodium 132 mmol/L (137-145); Total Protein 5.1 g/dL (6.3-8.2)
[2022-11-20 09:45] LABS: Neutrophils Absolute Manual 5694 /uL (3000-5900); Nucleated Red Blood Cells 1 #/Diff; Total Cells Counted 100
[2022-11-20 09:46] LABS: Anisocytosis 1+; Microcytosis 1+
[2022-11-20] MEDS: SODIUM CHLORIDE 0.9% 100 ML 21 ML IV (11:06)
[2022-11-20] MEDS: ONDANSETRON 16 MG in SODIUM CHLORIDE 0.9% 50 ML 232 MG IV (11:30)
[2022-11-20] MEDS: NIVOLUMAB 240 MG in SODIUM CHLORIDE 0.9% (CHEMO) 100 ML 124 ML IV (12:25)
--- NOTE | 2022-11-20 13:14 | ONC.MSW ---
Description: Family FMLA Forms Activity: Completed the FMLA forms for pt's brother, Giuliano, provided them to him today while he/pt were in infusion. Encouraged them to reach out to this [employer] anytime for further assistance.
[2022-11-20] MEDS: DEXTROSE 5% IV ×2 (13:37→13:52)
[2022-11-20] MEDS: LEUCOVORIN IV (13:37)
[2022-11-20] MEDS: DEXTROSE 5 % IN WATER 100 ML 21 ML IV (13:42)
[2022-11-20] MEDS: OXALIPLATIN IV (13:52)
[2022-11-20 14:02] VITALS: BP 134/94; PULSE 101; O2SAT 98
[2022-11-20 14:07] VITALS: BP 139/97; PULSE 96; O2SAT 100
[2022-11-20 14:14] VITALS: BP 135/97; PULSE 96; O2SAT 100
[2022-11-20 14:40] VITALS: PULSE 97; O2SAT 100
--- NOTE | 2022-11-20 15:38 | PC.NURSE ---
Addendum entered by Gela Reyes R.N. 11/20/22 17:33: Oxaliplatin & Leucovorin infusion completed at 1720. Pt denies further discomfort. Original Note: SOB/CHEST PRESSURE/EPIGASTRIC DISCOMFORT Directly after starting oxali/leuco (~1400), Pt reported difficulty breathing, chest pressure and epigastric discomfort. Infusion stopped, 2L O2 administered via NC and vital signs taken. Dr. Collier notified. 1402 VS: BP 134/94 HR 101 SPO2 98% on 2L 1407 VS: BP 139/97 HR 96 SPO2 100% on 2L 1414 VS: BP 135/97 HR 96 SPO2 100% on 2L Pt reports relief of chest pressure. 1440 VS: HR 97 SPO2 100% on RA Stated that epigastric pressure had improved. She had this same feeling prior to going to the ED for paracentisis over the weekend. Shortness of breath resolved, Pt returned to room air. Per Dr. Collier, infusion restarted with oxali running at 130ml/hr for 10 minutes. Pt resting in chair, reports feeling better overall. 1455 Oxaliplatin rate increased to 265ml/hr. Pt resting in chair without complaints. Will continue to monitor.
--- NOTE | 2022-11-20 16:37 | ONC.PHA ---
Chemotherapy: S/O: 27 y.o. female, with diagnosis of metastatic gastric adenocarcinoma, is her for cycle 2 [id number] and Nivolumab chemotherapy: Nivolumab 240ng, Oxaliplatin 85mg/m? (150mg), Leucovorin 400mg/m? (700mg), and 5FU bolus 400mg/m? (690mg), cycle 14 days. Today Wt = 78.7 kg, BSA = 1.82 m? A/P: Reviewed chemotherapy order: Oxaliplatin, Leucovorin and 5-FU doses are calculated using actual BW. Reviewed chemotherapy dose: Nivolumab, oxaliplatin, leucovorin and 5-FU doses are appropriate. Reviewed today labs: all pertinent labs are appropriate, except alkaline phone = 190 (1.5x UNL) - no dose adjustment recommend. Reviewed MD 11/13/2022 note, patient was recently seen at [facility] and determined that is not a surgical candidate. Continue Palliative chemotherapy recommended. Plan to continue current regimen of FOLFOX plus nivolumab. 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 Malignant neoplasm of stomach, unspecified 11/20/22 Malignant ascites 11/20/22 Other specified postprocedural states 11/20/22 Vital Signs Temperature 98.2 F 11/20/22 09:35 Pulse Rate 108 11/20/22 09:35 Respiratory Rate 16 11/20/22 09:35 Blood Pressure 128/85 11/20/22 09:35 Pulse Oximetry 98 11/20/22 09:35 Weight 78.7 kg 11/20/22 08:54 Laboratory WBC 7.8 X10^3/uL (4.5-11.0) 11/20/22 09:20 RBC 3.63 X10^6/uL (4.0-5.2) L 11/20/22 09:20 Hgb 8.7 g/dL (12.0-16.0) L 11/20/22 09:20 Hct 27.4 % (36-46) L 11/20/22 09:20 Plt Count 339 X10^3/uL (150-400) 11/20/22 09:20 Neut # (Auto) 1000 /uL (5520-2536) L 11/13/22 11:50 Neutrophils # (Manual) 5694 /uL (0994-0687) 11/20/22 09:20 Creatinine 0.37 mg/dL (0.52-1.04) L 11/20/22 09:20 Estimated GFR > 60 mL/min (>60) 11/20/22 09:20 Calcium 7.2 mg/dL (8.4-10.2) L 11/20/22 09:20 Total Bilirubin 0.5 mg/dL (0.2-1.3) 11/20/22 09:20 AST 25 IU/L (14-36) 11/20/22 09:20 ALT 21 IU/L (<35) 11/20/22 09:20 Alkaline Phosphatase 190 U/L (38-126) H 11/20/22 09:20
[2022-11-20] MEDS: ISOOSMOTIC VEHICLE IV (17:27)
[2022-11-20] MEDS: FLUOROURACIL IV (17:27)
--- NOTE | 2022-11-20 18:18 | PC.NURSE ---
5-FU PUMP CONNE[employer] [facility] RN met with Pt and her brother today to discuss the use of 5-FU pump. Pt and her brother familiar with pump as they are using the same type of device to administer Pt's TPN. Pt reports all questions/concerns answered at this time. 1800: Verified pump dosage/rate with TRINIDAD Napoles. Pt has occlusive dressing covering port site, clave and equashiled in place. Verified + blood return. Pump connected per protocol, connections wrapped with coban. Discussed with Pt and her brother to return to clinic on Friday (11/22) at 1600 for pump disconnect. Pt and her brother voiced understanding.
--- NOTE | 2022-11-20 19:35 | PC.NURSE ---
BREAST ULTRASOUND: RONY VASQUEZ CALLED TO ASK IF THE TARGETED SONOGRAPHIC BIOPSY WAS DONE. NO RECORDS WERE FOUND. THIS NURSE ASKED DR EMERY IF HE WAS PLANNING TO DO FURTHER IMAGING OF THE BREAST. HE SAID HE WOULD NOT PURSUE THIS AT THIS TIME. THIS NURSE INFORMED HIM OF PATIENT'S INFO TO US THAT SHE HAD A PET SCAN AT [facility] LAST FRIDAY. DR EMERY REQUESTS THE RECORDS BE OBTAINED FROM [facility] AND PUT IN HIS BOX TO READ.
--- NOTE | 2022-11-22 16:31 | PC.NURSE ---
PUMP DISCONNECT Pt being cared for in ED for shortness of breath and lower chest/abdominal pain. CXR and CT scan done. Pt's brother (Giuliano) stated that ED physician will be notifying Dr. Collier. This RN verified 5-FU infusion pump was complete and disconnected pump per protocol. Verified + blood return, port flushed with NS and new clave/cap placed. Port left accessed for use by ED. Educated Pt and Pt's brother that port needle should not be left in place for over one week. Pt and Pt's brother voiced understanding. Pt reports port was accessed on Friday (11/18).
--- NOTE | 2022-11-25 16:23 | PC.NURSE ---
COMMUNICATION W/ PT POST ED VISIT Pt seen in ED on 11/22/22 for dyspnea and was sent home with PO amoxicillin for PNA. This RN spoke with Pt and reports I am feeling way better. Pt denies shortness of breath and pain. She is taking abx as instructed. No other concerns at this time. She stated that her port was de-accessed in the ED on Friday. Pt to RTC on 11/27/22 for labs and is also scheduled for paracentisis same day.
[2022-11-27 14:33] LABS: Add Manual Diff / Slide Review NO; Basophils Absolute Auto 0 /uL (0-100); Basophils Percent Auto 0.7 % (0-2); Eosinophils Absolute Auto 0 /uL (0-450); Eosinophils Percent Auto 0.8 % (2-4); Hematocrit 26.2 % (36-46); Hemoglobin 8.5 g/dL (12.0-16.0); Lymphocytes Absolute Auto 1100 /uL (1100-4500); Lymphocytes Percent Auto 20.2 % (25-40); Mean Corpuscular HGB Conc 32.2 % (30-36); Mean Corpuscular Volume 74.5 fL (80-100); Monocytes Absolute Auto 400 /uL (0-900); Monocytes Percent Auto 7.9 % (3-14); Neutrophils Absolute Auto 3800 /uL (1500-7000); Neutrophils Percent Auto 70.4 % (50-75); Platelet Count 367 X10^3/uL (150-400); Red Blood Cell Count 3.52 X10^6/uL (4.0-5.2); Red Cell Distribution Width 19.1 % (11.6-14.8); White Blood Cell Count 5.3 X10^3/uL (4.5-11.0)
[2022-11-27 14:43] LABS: Alanine Aminotransferase 37 IU/L (<35); Albumin 2.9 g/dL (3.5-5.0); Albumin Globulin Ratio 0.9 (1.0-2.8); Alkaline Phosphatase 206 U/L (38-126); Aspartate Aminotransferase 38 IU/L (14-36); BUN Creatinine Ratio 36.4 (6-22); Bilirubin Total 0.5 mg/dL (0.2-1.3); Blood Urea Nitrogen 16 mg/dL (7-17); Calcium 8.1 mg/dL (8.4-10.2); Carbon Dioxide 28 mmol/L (22-32); Chloride 98 mmol/L (98-107); Estimated Glomerular Filt Rate > 60 mL/min (>60); Globulin 3.4 g/dL (1.7-4.1); Glucose 102 mg/dL (70-100); HEMOLYSIS < 15 (0-50); Potassium 3.9 mmol/L (3.4-5.1); Sodium 131 mmol/L (137-145); Total Protein 6.3 g/dL (6.3-8.2)
--- NOTE | 2022-11-27 15:15 | PC.NURSE ---
Pain medication: pt requesting refills on Methadone and Morphine. She takes: Methadone 10mg tab; 30mg PO q8hr prn. (see ED note 11/22/22) Morphine 30mg PO Q4hrs prn. Last Rx 11/22/22 from ED was for Q6hrs Notified Dr. Collier of pt's request.
--- NOTE | 2022-12-03 08:42 | ONC.MSW ---
*Pt has received a Chemo Quilt.
[2022-12-04 09:14] LABS: Add Manual Diff / Slide Review NO; Basophils Absolute Auto 0 /uL (0-100); Basophils Percent Auto 1.1 % (0-2); Eosinophils Absolute Auto 200 /uL (0-450); Eosinophils Percent Auto 3.6 % (2-4); Hematocrit 25.4 % (36-46); Hemoglobin 8.3 g/dL (12.0-16.0); Lymphocytes Absolute Auto 800 /uL (1100-4500); Lymphocytes Percent Auto 19.2 % (25-40); Mean Corpuscular HGB Conc 32.7 % (30-36); Mean Corpuscular Volume 73.5 fL (80-100); Monocytes Absolute Auto 400 /uL (0-900); Monocytes Percent Auto 9.7 % (3-14); Neutrophils Absolute Auto 2800 /uL (1500-7000); Neutrophils Percent Auto 66.4 % (50-75); Platelet Count 269 X10^3/uL (150-400); Red Blood Cell Count 3.46 X10^6/uL (4.0-5.2); Red Cell Distribution Width 19.4 % (11.6-14.8); White Blood Cell Count 4.2 X10^3/uL (4.5-11.0)
[2022-12-04 09:25] LABS: Alanine Aminotransferase 35 IU/L (<35); Albumin 2.7 g/dL (3.5-5.0); Albumin Globulin Ratio 0.9 (1.0-2.8); Alkaline Phosphatase 182 U/L (38-126); Aspartate Aminotransferase 40 IU/L (14-36); BUN Creatinine Ratio 45.2 (6-22); Bilirubin Total 0.2 mg/dL (0.2-1.3); Blood Urea Nitrogen 19 mg/dL (7-17); Calcium 7.9 mg/dL (8.4-10.2); Carbon Dioxide 29 mmol/L (22-32); Chloride 100 mmol/L (98-107); Estimated Glomerular Filt Rate > 60 mL/min (>60); Globulin 3.1 g/dL (1.7-4.1); Glucose 99 mg/dL (70-100); HEMOLYSIS < 15 (0-50); Potassium 4.3 mmol/L (3.4-5.1); Sodium 134 mmol/L (137-145); Total Protein 5.8 g/dL (6.3-8.2)
--- NOTE | 2022-12-04 10:09 | P.PNONC_ITS ---
PN -Subjective - Date of Visit Date of visit: 12/04/22 Chief Complaint: Gastric cancer Interval history: Niecy is a very pleasant 27-year-old female diagnosed with metastatic gastric cancer and is currently undergoing treatment with FOLFOX plus nivolumab chemo immunotherapy. She is here for next cycle and is overall feeling much better. Her appetite is improving although she still requires 24 hour TPN infusions. She does have significant ascites and requires paracentesis every week although she states that her frequency of paracentesis is decreasing. Energy level is good and pain is under good control currently. - Patient Self-Reported Symptoms SR Constitution: Weight loss/gain, Fatigue/Malaise SR respiratory issues: Difficulty breathing SR Cardiovascular issues: Shortness of breath with activity or lying flat, Extreme swelling, Dizzy/lightheaded SR Gastrointestinal issues: Poor or no appetite, Abdominal pain (Distended distended abdomen) SR Genitourinary issues: Burning/painful urination SR Musculoskeletal issues: Back or neck pain Home Medications and Allergies Home Medications Medication Instructions Recorded Confirmed Type hydroxyzine pamoate 25 mg capsule 25 mg PO Q6HR PRN Itching #30 caps 11/02/22 11/13/22 Rx morphine 15 mg immediate release 30 mg PO Q4H PRN Pain, Severe 11/02/22 11/13/22 Rx tablet (7-10) #60 tabs olanzapine 10 mg disintegrating 5 mg PO DAILY #30 tabs 11/02/22 11/13/22 Rx tablet (Zyprexa Zydis) ondansetron 8 mg disintegrating 8 mg PO Q8H PRN nausea and 11/02/22 11/13/22 Rx tablet vomiting #30 tabs pantoprazole 40 mg tablet,delayed 40 mg PO DAILY #30 tabs 11/02/22 11/13/22 Rx release (Protonix) sennosides 8.6 mg-docusate sodium 2 tab-cap PO BID #60 caps 11/02/22 11/13/22 Rx 50 mg capsule (Senna Plus) hydrocortisone 1 % topical cream 1 applic topical TID PRN Itching 11/11/22 11/13/22 Rx #100 grams hydroxyzine pamoate 25 mg capsule 25 mg PO Q4HR PRN Nausea #100 caps 11/11/22 11/13/22 Rx lidocaine 5 % topical patch 1 ea topical BEDTIME #30 ea 11/11/22 11/13/22 Rx methadone 10 mg tablet 10 mg PO Q8H #21 tabs 11/11/22 11/13/22 Rx methadone 10 mg tablet 20 mg PO Q8H #42 tabs 11/11/22 11/13/22 Rx scopolamine base 1 mg over 3 days 1 patch topical Q72H #10 ea 11/11/22 11/13/22 Rx transdermal patch (Transderm-Scop) amoxicillin 875 mg-potassium 1 tab PO BID #20 tabs 11/22/22 Rx clavulanate 125 mg tablet methadone 10 mg tablet 10 mg PO TID #10 tabs 11/22/22 Rx methadone 10 mg tablet 30 mg PO TID PRN Pain (Scale Score 11/27/22 Rx 1-3) #270 tabs morphine 30 mg immediate release 30 mg PO Q6H PRN pain #120 tabs 11/27/22 Rx tablet Allergies Allergy/AdvReac Type Severity Reaction Status Date / Time No Known Drug Allergies Allergy Verified 11/06/22 15:14 Exam Vital signs: Intake and Output 12/03/22 12/04/22 12/04/22 23:59 07:59 15:59 Other: Weight 66.4 kg Patient Weight 12/04/22 23:59 Weight 66.4 kg Results - Labs Laboratory Last Values WBC 4.2 X10^3/uL (4.5-11.0) L 12/04/22 09:00 RBC 3.46 X10^6/uL (4.0-5.2) L 12/04/22 09:00 Hgb 8.3 g/dL (12.0-16.0) L 12/04/22 09:00 Hct 25.4 % (36-46) L 12/04/22 09:00 MCV 73.5 fL (80-100) L 12/04/22 09:00 MCH 24.0 PG (26-34) L 12/04/22 09:00 MCHC 32.7 % (30-36) 12/04/22 09:00 RDW 19.4 % (11.6-14.8) H 12/04/22 09:00 Plt Count 269 X10^3/uL (150-400) 12/04/22 09:00 Neut % (Auto) 66.4 % (50-75) 12/04/22 09:00 Lymph % (Auto) 19.2 % (25-40) L 12/04/22 09:00 Sutton % (Auto) 9.7 % (3-14) 12/04/22 09:00 Eos % (Auto) 3.6 % (2-4) 12/04/22 09:00 Baso % (Auto) 1.1 % (0-2) 12/04/22 09:00 Neut # (Auto) 2800 /uL (7372-3442) 12/04/22 09:00 Lymph # (Auto) 800 /uL (5871-9562) L 12/04/22 09:00 Sutton # (Auto) 400 /uL (0-900) 12/04/22 09:00 Eos # (Auto) 200 /uL (0-450) 12/04/22 09:00 Baso # (Auto) 0 /uL (0-100) 12/04/22 09:00 Total Counted 100 11/20/22 09:20 Seg Neutrophils % 73.0 % (38-70) H 11/20/22 09:20 Lymphocytes % (Manual) 16.0 % (25-45) L 11/20/22 09:20 Monocytes % (Manual) 10.0 % (2-11) 11/20/22 09:20 Basophils % (Manual) 1.0 % (0-1) 11/20/22 09:20 Neutrophils # (Manual) 5694 /uL (3155-7861) 11/20/22 09:20 Nucleated RBCs 1 #/Diff (-0) H 11/20/22 09:20 RBC Morphology See below 11/20/22 09:20 Anisocytosis 1+ H 11/20/22 09:20 Microcytosis 1+ H 11/20/22 09:20 Sodium 134 mmol/L (137-145) L 12/04/22 09:00 Potassium 4.3 mmol/L (3.4-5.1) 12/04/22 09:00 Chloride 100 mmol/L (98-107) 12/04/22 09:00 Carbon Dioxide 29 mmol/L (22-32) 12/04/22 09:00 BUN 19 mg/dL (7-17) H 12/04/22 09:00 Creatinine 0.42 mg/dL (0.52-1.04) L 12/04/22 09:00 Estimated GFR > 60 mL/min (>60) 12/04/22 09:00 BUN/Creatinine Ratio 45.2 (6-22) H 12/04/22 09:00 Glucose 99 mg/dL (70-100) 12/04/22 09:00 Calcium 7.9 mg/dL (8.4-10.2) L 12/04/22 09:00 Total Bilirubin 0.2 mg/dL (0.2-1.3) 12/04/22 09:00 AST 40 IU/L (14-36) H 12/04/22 09:00 ALT 35 IU/L (<35) H 12/04/22 09:00 Alkaline Phosphatase 182 U/L (38-126) H 12/04/22 09:00 Total Protein 5.8 g/dL (6.3-8.2) L 12/04/22 09:00 Albumin 2.7 g/dL (3.5-5.0) L 12/04/22 09:00 Globulin 3.1 g/dL (1.7-4.1) 12/04/22 09:00 Albumin/Globulin Ratio 0.9 (1.0-2.8) L 12/04/22 09:00 Carcinoembryonic Ag 1.6 ng/mL (0.1-3.0) 11/13/22 11:50 CA 125 Antigen 269 U/mL (0-35) H 11/13/22 11:50 Blood Type B Positive 11/13/22 11:50 Antibody Screen Negative 11/13/22 11:50 Crossmatch See Detail 11/13/22 11:50 - Imaging Additional studies: Procedures Drainage of Peritoneal Cavity, Percutaneous Approach (10/16/22) Drainage of Peritoneal Cavity, Percutaneous Approach, Diagnostic (10/16/22) Excision of Esophagus, Via Natural or Artificial Opening Endoscopic, Diagnostic (10/16/22) Excision of Stomach, Via Natural or Artificial Opening Endoscopic, Diagnostic (10/16/22) Fluoroscopy of Right Subclavian Vein, Guidance (10/16/22) Insertion of Infusion Device into Right Subclavian Vein, Percutaneous Approach (10/16/22) Insertion of Infusion Device into Superior Vena Cava, Percutaneous Approach (10/16/22) Insertion of Totally Implantable Vascular Access Device into Chest Subcutaneous Tissue and Fascia, Open Approach (10/16/22) Introduction of Nutritional Substance into Peripheral Vein, Percutaneous Approach (10/16/22) Transfusion of Nonautologous Red Blood Cells into Central Vein, Percutaneous Approach (10/16/22) Assessment and Plan (1) Gastric adenocarcinoma Status: Acute Niecy Stokes is a 27 year old female Who was recently hospitalized [place] [facility] [id number] ongoing abdominal pain and [address] loss[address] A [address] of the abdomen showed diffuse peritoneal c arcinomatosis. She subsequently underwent EGD on 10/18/2022 which showed a GE junction mass with diffuse gastric wall changes pathology showed poorly differentiated adenocarcinoma. The patient also had malignant ascites and had had multiple paracentesis. Due to poor nutrition the patient was also on TPN which is continued chronically. While she was in the hospital she received her 1st dose of FOLFOX plus nivolumab on 10/30/2022 after I initially saw her at that point in time. Since then she was discharged and presents today for follow-up for ongoing management. She was recently seen at the [facility] and was not felt to be a surgical candidate. Further systemic treatment was recommended from their standpoint. She continues to have ascites associated with her peritoneal carcinomatosis and associated right-sided hydronephrosis, fluid distention and thickening of the bowels in a moderate right-sided pleural effusion. Niecy continues on palliative chemotherapy with FOLFOX plus nivolumab which appears to be having a very good impact. Her pain is decreased in her rate of ascites accumulation is decreased. She is trying more solids now although still requires full-time TPN. We will proceed to next cycle of FOLFOX nivolumab today. As her labs are adequate. 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 This is consistent with her family history and which her father also had gastric cancer in his 40s. I explained to her that the cancer risk for the CDH1 mutation is rather high and that she should have her children and her siblings tested for this as there is a potential risk that they have inherited this genetic mutation as well. I will go ahead and refer her to genetics counseling for a more thorough review of the implications of her positive test. I did explain to her that there is a 56-83% chance of gastric cancer in patients with this mutation as well as a 39-52% risk of breast cancer in patients with this mutation as well. Early surveillance is recumbent recommended for both of these alexus potts in reviewed this with her along with general recommendations from her [facility] hereditary cancer test results. The patient understands this and her brother was present as well who also understands that he has a risk for this as well. The patient states that she will contact her photogrammetric technician as well to have her 2 daughters tested as well..
[2022-12-04 10:23] VITALS: BP 111/64; PULSE 93; RESP 16; TEMP 36.4; O2SAT 100
[2022-12-04] MEDS: ONDANSETRON 16 MG in SODIUM CHLORIDE 0.9% 50 ML 232 MG IV (11:11)
[2022-12-04] MEDS: NIVOLUMAB 240 MG in SODIUM CHLORIDE 0.9% (CHEMO) 100 ML 248 ML IV (11:51)
[2022-12-04] MEDS: DEXTROSE 5 % IN WATER 100 ML 21 ML IV (13:01)
[2022-12-04] MEDS: DEXTROSE 5% IV ×2 (13:02)
[2022-12-04] MEDS: LEUCOVORIN IV (13:02)
[2022-12-04] MEDS: OXALIPLATIN IV (13:02)
--- NOTE | 2022-12-04 13:55 | PC.NURSE ---
TEST: PATIENT MADE NURSE AWARE TODAY THAT SHE HAS NOT HAD HER PERIOD SINCE October. SHE STATED THAT SHE EXPECTED IT AROUND 11/22 BUT THAT THERE IS NO WAY SHE COULD BE SHE HAS NOT HAD INTERCOURSE. SHE STATED THAT SHE WANTS TO GO AHEAD WITH THE CHEMO TO RUN SHE IS POSITIVE THAT SHE CANNOT BE BUT THAT SHE WILL LEAVE URINE SOON SHE CAN TODAY FOR A TEST. ORDERS WERE ENTERED FOR A URINE TEST TO BE DONE BEFORE EVERY CHEMO.
[2022-12-04 14:47] LABS: Pregnancy Test Urine Negative (Negative)
--- NOTE | 2022-12-04 15:27 | ONC.PHA ---
Chemotherapy: S/O: 27 y.o. female, with diagnosis of metastatic gastric adenocarcinoma, is her for cycle 3 [id number] and Nivolumab chemotherapy: Nivolumab 240ng, Oxaliplatin 85mg/m? (150mg), Leucovorin 400mg/m? (700mg), and 5FU bolus 400mg/m? (690mg), cycle 14 days. Today Wt = 66.4 kg, BSA = 1.69 m? A/P: Reviewed chemotherapy order: Oxaliplatin, Leucovorin and 5-FU doses are calculated using actual BW. Reviewed chemotherapy dose: Nivolumab, oxaliplatin, leucovorin and 5-FU doses are appropriate. Reviewed today labs: all pertinent labs are appropriate, except AST/alkaline phos = 40 (1.1x UNL)/182 (1.4x UNL) - no dose adjustment recommend. Reviewed MD today note, patient was recently seen at [facility] and determined that is not a surgical candidate. Continue Palliative chemotherapy recommended. Proceed to next cycle of FOLFOX plus nivolumab today. Allergies Allergy/AdvReac Type Severity Reaction Status Date / Time No Known Drug Allergies Allergy Verified 11/06/22 15:14 Diagnosis Malignant neoplasm of cardia 12/04/22 Malignant neoplasm of stomach, unspecified 12/04/22 Secondary malignant neoplasm of retroperitoneum and peritoneum 12/04/22 Malignant ascites 12/04/22 Vital Signs Temperature 97.5 F 12/04/22 10:23 Pulse Rate 93 12/04/22 10:23 Respiratory Rate 16 12/04/22 10:23 Blood Pressure 111/64 12/04/22 10:23 Pulse Oximetry 100 12/04/22 10:23 Weight 66.4 kg 12/04/22 09:45 Laboratory WBC 4.2 X10^3/uL (4.5-11.0) L 12/04/22 09:00 RBC 3.46 X10^6/uL (4.0-5.2) L 12/04/22 09:00 Hgb 8.3 g/dL (12.0-16.0) L 12/04/22 09:00 Hct 25.4 % (36-46) L 12/04/22 09:00 Plt Count 269 X10^3/uL (150-400) 12/04/22 09:00 Neut # (Auto) 2800 /uL (4710-1085) 12/04/22 09:00 Neutrophils # (Manual) 5694 /uL (8413-2748) 11/20/22 09:20 Creatinine 0.42 mg/dL (0.52-1.04) L 12/04/22 09:00 Estimated GFR > 60 mL/min (>60) 12/04/22 09:00 Calcium 7.9 mg/dL (8.4-10.2) L 12/04/22 09:00 Total Bilirubin 0.2 mg/dL (0.2-1.3) 12/04/22 09:00 AST 40 IU/L (14-36) H 12/04/22 09:00 ALT 35 IU/L (<35) H 12/04/22 09:00 Alkaline Phosphatase 182 U/L (38-126) H 12/04/22 09:00
[2022-12-04] MEDS: ISOOSMOTIC VEHICLE IV (15:49)
[2022-12-04] MEDS: FLUOROURACIL IV (15:49)
--- NOTE | 2022-12-04 16:59 | PC.NURSE ---
CADD casette dosage checked with TRINIDAD Gonsales. Patient hooked up post 5fu push. Good blood return, all clamps open, pump running, patient scheduling to return in 46 hours at 245 on Friday.
[2022-12-06 15:04] VITALS: BP 116/67; PULSE 74; RESP 16; TEMP 36.3; O2SAT 100
[2022-12-11 08:47] LABS: Add Manual Diff / Slide Review NO; Basophils Absolute Auto 100 /uL (0-100); Basophils Percent Auto 1.4 % (0-2); Eosinophils Absolute Auto 100 /uL (0-450); Eosinophils Percent Auto 2.6 % (2-4); Hematocrit 27.8 % (36-46); Hemoglobin 9.1 g/dL (12.0-16.0); Lymphocytes Absolute Auto 1400 /uL (1100-4500); Lymphocytes Percent Auto 36.8 % (25-40); Mean Corpuscular HGB Conc 32.6 % (30-36); Mean Corpuscular Hemoglobin 23.9 PG (26-34); Mean Corpuscular Volume 73.4 fL (80-100); Monocytes Absolute Auto 500 /uL (0-900); Neutrophils Absolute Auto 1700 /uL (1500-7000); Neutrophils Percent Auto 45.2 % (50-75); Platelet Count 267 X10^3/uL (150-400); Red Blood Cell Count 3.78 X10^6/uL (4.0-5.2); Red Cell Distribution Width 19.2 % (11.6-14.8); White Blood Cell Count 3.8 X10^3/uL (4.5-11.0)
[2022-12-11 09:03] LABS: Alanine Aminotransferase 44 IU/L (<35); Albumin 3.4 g/dL (3.5-5.0); Alkaline Phosphatase 170 U/L (38-126); Aspartate Aminotransferase 43 IU/L (14-36); BUN Creatinine Ratio 48.9 (6-22); Bilirubin Total 0.5 mg/dL (0.2-1.3); Blood Urea Nitrogen 22 mg/dL (7-17); Calcium 8.5 mg/dL (8.4-10.2); Carbon Dioxide 26 mmol/L (22-32); Chloride 99 mmol/L (98-107); Estimated Glomerular Filt Rate > 60 mL/min (>60); Globulin 3.4 g/dL (1.7-4.1); Glucose 97 mg/dL (70-100); HEMOLYSIS < 15 (0-50); Potassium 4.2 mmol/L (3.4-5.1); Sodium 131 mmol/L (137-145); Total Protein 6.8 g/dL (6.3-8.2)
[2022-12-17 08:56] LABS: Add Manual Diff / Slide Review NO; Basophils Absolute Auto 0 /uL (0-100); Basophils Percent Auto 0.8 % (0-2); Eosinophils Absolute Auto 100 /uL (0-450); Eosinophils Percent Auto 1.9 % (2-4); Hematocrit 28.8 % (36-46); Hemoglobin 9.5 g/dL (12.0-16.0); Lymphocytes Absolute Auto 1200 /uL (1100-4500); Lymphocytes Percent Auto 21.8 % (25-40); Mean Corpuscular Hemoglobin 24.2 PG (26-34); Mean Corpuscular Volume 73.3 fL (80-100); Monocytes Absolute Auto 600 /uL (0-900); Neutrophils Absolute Auto 3600 /uL (1500-7000); Neutrophils Percent Auto 65.5 % (50-75); Platelet Count 205 X10^3/uL (150-400); Red Blood Cell Count 3.93 X10^6/uL (4.0-5.2); Red Cell Distribution Width 19.8 % (11.6-14.8); White Blood Cell Count 5.5 X10^3/uL (4.5-11.0)
[2022-12-17 09:09] LABS: Alanine Aminotransferase 42 IU/L (<35); Albumin 3.4 g/dL (3.5-5.0); Alkaline Phosphatase 158 U/L (38-126); Aspartate Aminotransferase 46 IU/L (14-36); Bilirubin Total 0.5 mg/dL (0.2-1.3); Blood Urea Nitrogen 24 mg/dL (7-17); Calcium 8.4 mg/dL (8.4-10.2); Carbon Dioxide 26 mmol/L (22-32); Chloride 98 mmol/L (98-107); Estimated Glomerular Filt Rate > 60 mL/min (>60); Globulin 3.5 g/dL (1.7-4.1); Glucose 98 mg/dL (70-100); HEMOLYSIS < 15 (0-50); Potassium 4.7 mmol/L (3.4-5.1); Sodium 131 mmol/L (137-145); Total Protein 6.9 g/dL (6.3-8.2)
[2022-12-17 09:10] VITALS: BP 120/79; PULSE 95; RESP 18; O2SAT 98
[2022-12-17 09:41] LABS: Pregnancy Test Urine Negative (Negative)
--- NOTE | 2022-12-17 09:53 | P.PNONC_ITS ---
PN -Subjective - Date of Visit Date of visit: 12/17/22 Chief Complaint: Gastric cancer Interval history: Niecy is a very pleasant 27-year-old female diagnosed with metastatic gastric cancer and is currently undergoing treatment with FOLFOX plus nivolumab chemo immunotherapy. She is here for next cycle and is overall feeling much better. Her appetite is improving although she still requires 24 hour TPN infusions. Has not requried paracentesis in over 2 weeks. She is more active but still has nausea. - Patient Self-Reported Symptoms SR Constitution: Chills, Weight loss/gain SR eye issues: Vision changes SR respiratory issues: Difficulty breathing SR Cardiovascular issues: Shortness of breath with activity or lying flat, Extreme swelling, Dizzy/lightheaded SR Skin issues: Skin rash or itching, Hair loss or scalp prob SR Gastrointestinal issues: Nausea, Vomiting, Abdominal pain SR Genitourinary issues: Burning/painful urination SR Musculoskeletal issues: Cold hands or feet SR Neuro issues: Tremors or shaking Home Medications and Allergies Home Medications Medication Instructions Recorded Confirmed Type hydroxyzine pamoate 25 mg capsule 25 mg PO Q6HR PRN Itching #30 caps 11/02/22 11/13/22 Rx morphine 15 mg immediate release 30 mg PO Q4H PRN Pain, Severe 11/02/22 11/13/22 Rx tablet (7-10) #60 tabs olanzapine 10 mg disintegrating 5 mg PO DAILY #30 tabs 11/02/22 11/13/22 Rx tablet (Zyprexa Zydis) ondansetron 8 mg disintegrating 8 mg PO Q8H PRN nausea and 11/02/22 11/13/22 Rx tablet vomiting #30 tabs pantoprazole 40 mg tablet,delayed 40 mg PO DAILY #30 tabs 11/02/22 11/13/22 Rx release (Protonix) sennosides 8.6 mg-docusate sodium 2 tab-cap PO BID #60 caps 11/02/22 11/13/22 Rx 50 mg capsule (Senna Plus) hydrocortisone 1 % topical cream 1 applic topical TID PRN Itching 11/11/22 11/13/22 Rx #100 grams hydroxyzine pamoate 25 mg capsule 25 mg PO Q4HR PRN Nausea #100 caps 11/11/22 11/13/22 Rx lidocaine 5 % topical patch 1 ea topical BEDTIME #30 ea 11/11/22 11/13/22 Rx methadone 10 mg tablet 10 mg PO Q8H #21 tabs 11/11/22 11/13/22 Rx methadone 10 mg tablet 20 mg PO Q8H #42 tabs 11/11/22 11/13/22 Rx scopolamine base 1 mg over 3 days 1 patch topical Q72H #10 ea 11/11/22 11/13/22 Rx transdermal patch (Transderm-Scop) amoxicillin 875 mg-potassium 1 tab PO BID #20 tabs 11/22/22 Rx clavulanate 125 mg tablet methadone 10 mg tablet 10 mg PO TID #10 tabs 11/22/22 Rx methadone 10 mg tablet 30 mg PO TID PRN Pain (Scale Score 11/27/22 Rx 1-3) #270 tabs morphine 30 mg immediate release 30 mg PO Q6H PRN pain #120 tabs 11/27/22 Rx tablet fluorouracil 2.5 gram/50 mL 4,000 mg (80 mL) IV NOW 12/17/22 Rx intravenous solution CHEMOTHERAPY #1 device Allergies Allergy/AdvReac Type Severity Reaction Status Date / Time No Known Drug Allergies Allergy Verified 11/06/22 15:14 Exam Vital signs: Vital Signs Pulse Resp BP Pulse Ox 12/17/22 09:10 95 H 18 120/79 98 Intake and Output 12/16/22 12/17/22 12/17/22 23:59 07:59 15:59 Other: Weight 62.2 kg Patient Weight 12/17/22 23:59 Weight 62.2 kg - Constitutional positive no acute distress, negative diaphoretic - Routine HEENT Exam Head: Present: normocephalic Eye: Present: PERRL (Conjunctivae normal) ENT: Present: mucous membranes moist - Routine Respiratory Exam Present: Clear to auscultation bilaterally. Absent: rales, respiratory distress, wheezes - Routine Cardiovascular Exam Present: RRR. Absent: murmur, irregular rhythm - Routine Abdominal Exam Present: soft. Absent: tenderness, distended, guarding - Routine Extremities Exam Present: full ROM. Absent: edema, tenderness (No Swelling) - Routine Skin Exam Present: dry, warm. Absent: lesions (No Bruising), jaundice - Routine Neurological Exam Present: alert, oriented X3. Absent: sensory deficit, motor deficit - Routine Psychiatric Exam Present: normal affect, normal thought process, cooperative. Absent: anxious, agitated Results - Labs Laboratory Last Values WBC 5.5 X10^3/uL (4.5-11.0) 12/17/22 08:50 RBC 3.93 X10^6/uL (4.0-5.2) L 12/17/22 08:50 Hgb 9.5 g/dL (12.0-16.0) L 12/17/22 08:50 Hct 28.8 % (36-46) L 12/17/22 08:50 MCV 73.3 fL (80-100) L 12/17/22 08:50 MCH 24.2 PG (26-34) L 12/17/22 08:50 MCHC 33.0 % (30-36) 12/17/22 08:50 RDW 19.8 % (11.6-14.8) H 12/17/22 08:50 Plt Count 205 X10^3/uL (150-400) 12/17/22 08:50 Neut % (Auto) 65.5 % (50-75) 12/17/22 08:50 Lymph % (Auto) 21.8 % (25-40) L 12/17/22 08:50 [place] % (Auto) 10.0 % (3-14) 12/17/22 08:50 Eos % (Auto) 1.9 % (2-4) L 12/17/22 08:50 Baso % (Auto) 0.8 % (0-2) 12/17/22 08:50 Neut # (Auto) 3600 /uL (7706-7954) 12/17/22 08:50 Lymph # (Auto) 1200 /uL (9052-4422) 12/17/22 08:50 [place] # (Auto) 600 /uL (0-900) 12/17/22 08:50 Eos # (Auto) 100 /uL (0-450) 12/17/22 08:50 Baso # (Auto) 0 /uL (0-100) 12/17/22 08:50 Total Counted 100 11/20/22 09:20 Seg Neutrophils % 73.0 % (38-70) H 11/20/22 09:20 Lymphocytes % (Manual) 16.0 % (25-45) L 11/20/22 09:20 Monocytes % (Manual) 10.0 % (2-11) 11/20/22 09:20 Basophils % (Manual) 1.0 % (0-1) 11/20/22 09:20 Neutrophils # (Manual) 5694 /uL (7503-5017) 11/20/22 09:20 Nucleated RBCs 1 #/Diff (-0) H 11/20/22 09:20 RBC Morphology See below 11/20/22 09:20 Anisocytosis 1+ H 11/20/22 09:20 Microcytosis 1+ H 11/20/22 09:20 Sodium 131 mmol/L (137-145) L 12/17/22 08:50 Potassium 4.7 mmol/L (3.4-5.1) 12/17/22 08:50 Chloride 98 mmol/L (98-107) 12/17/22 08:50 Carbon Dioxide 26 mmol/L (22-32) 12/17/22 08:50 BUN 24 mg/dL (7-17) H 12/17/22 08:50 Creatinine 0.48 mg/dL (0.52-1.04) L 12/17/22 08:50 Estimated GFR > 60 mL/min (>60) 12/17/22 08:50 BUN/Creatinine Ratio 50.0 (6-22) H 12/17/22 08:50 Glucose 98 mg/dL (70-100) 12/17/22 08:50 Calcium 8.4 mg/dL (8.4-10.2) 12/17/22 08:50 Total Bilirubin 0.5 mg/dL (0.2-1.3) 12/17/22 08:50 AST 46 IU/L (14-36) H 12/17/22 08:50 ALT 42 IU/L (<35) H 12/17/22 08:50 Alkaline Phosphatase 158 U/L (38-126) H 12/17/22 08:50 Total Protein 6.9 g/dL (6.3-8.2) 12/17/22 08:50 Albumin 3.4 g/dL (3.5-5.0) L 12/17/22 08:50 Globulin 3.5 g/dL (1.7-4.1) 12/17/22 08:50 Albumin/Globulin Ratio 1.0 (1.0-2.8) 12/17/22 08:50 Carcinoembryonic Ag 1.6 ng/mL (0.1-3.0) 11/13/22 11:50 CA 125 Antigen 269 U/mL (0-35) H 11/13/22 11:50 Urine Test Negative (Negative) 12/17/22 09:05 Blood Type B Positive 11/13/22 11:50 Antibody Screen Negative 11/13/22 11:50 Crossmatch See Detail 11/13/22 11:50 - Imaging Additional studies: Procedures Drainage of Peritoneal Cavity, Percutaneous Approach (10/16/22) Drainage of Peritoneal Cavity, Percutaneous Approach, Diagnostic (10/16/22) Excision of Esophagus, Via Natural or Artificial Opening Endoscopic, Diagnostic (10/16/22) Excision of Stomach, Via Natural or Artificial Opening Endoscopic, Diagnostic (10/16/22) Fluoroscopy of Right Subclavian Vein, Guidance (10/16/22) Insertion of Infusion Device into Right Subclavian Vein, Percutaneous Approach (10/16/22) Insertion of Infusion Device into Superior Vena Cava, Percutaneous Approach (10/16/22) Insertion of Totally Implantable Vascular Access Device into Chest Subcutaneous Tissue and Fascia, Open Approach (10/16/22) Introduction of Nutritional Substance into Peripheral Vein, Percutaneous Approa ch (10/16/22) Transfusion of Nonautologous Red Blood Cells into Central Vein, Percutaneous Approach (10/16/22) Assessment and Plan (1) Gastric adenocarcinoma Status: Acute Niecy Stokes is a 27 year old female with metastatic gastric cancer on FOLFOX + Nivolumab. Overall doing better in terms of energy and less ascites. She is still not eating and remains on TPN. Have encouraged her to try clear liquids to stimulate GI activity. Overall tolerating treatment well. Plan on restaging in next 1-2 ccyles. Pt was recently hospitalized [place] [facility] [place] [id number] ongoing abdominal pain and [address] weight loss[address] A [address] of the abdomen showed diffuse peritoneal carcinomatosis. She subsequently underwent EGD on 10/18/2022 which showed a GE junction mass with diffuse gastric wall changes pathology showed poorly differentiated adenocarcinoma. The patient also had malignant ascites and had had multiple paracentesis. Due to poor nutrition the patient was also on TPN which is continued chronically. While she was in the hospital she received her 1st dose of FOLFOX plus nivolumab on 10/30/2022 after I initially saw her at that point in time. Since then she was discharged and presents today for follow-up for ongoing management. She was recently seen at the [facility] and was not felt to be a surgical candidate. Further systemic treatment was recommended from their standpoint. She continues to have ascites associated with her peritoneal carcinomatosis and associated right-sided hydronephrosis, fluid distention and thickening of the bowels in a moderate right-sided pleural effusion. 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 This is consistent with her family history and which her father also had gastric cancer in his 40s. I explained to her that the cancer risk for the CDH1 mutation is rather high and that she should have her children and her siblings tested for this as there is a potential risk that they have inherited this genetic mutation as well. I will go ahead and refer her to genetics counseling for a more thorough review of the implications of her positive test. I did explain to her that there is a 56-83% chance of gastric cancer in patients with this mutation as well as a 39-52% risk of breast cancer in patients with this mutation as well. Early surveillance is recumbent recommended for both of these malignancies in reviewed this with her along with general recommendations from her [facility] hereditary cancer test results. The patient understands this and her brother was present as well who also understands that he has a risk for this as well. The patient states that she will contact her brewer helper as well to have her 2 daughters tested as well. Plan continue FOLFOX and Nivolumab Continue TPN Plan on restaging CTCAP.
[2022-12-17] MEDS: SODIUM CHLORIDE 0.9% 100 ML 21 ML IV (10:19)
[2022-12-17] MEDS: ONDANSETRON 16 MG in SODIUM CHLORIDE 0.9% 50 ML 232 MG IV (10:37)
[2022-12-17] MEDS: NIVOLUMAB 240 MG in SODIUM CHLORIDE 0.9% (CHEMO) 100 ML 248 ML IV (11:09)
--- NOTE | 2022-12-17 11:11 | ONC.SCHED ---
CT scan: Insurance does NOT require auth for this so I gave the patient's brother the phone number for radiology so they can schedule the scan. All info is in ARM and scanning.
[2022-12-17 11:23] LABS: Thyroid Stimulating Hormone 1.03 uIU/mL (0.47-4.68)
[2022-12-17] MEDS: DEXTROSE 5 % IN WATER 100 ML 21 ML IV (12:10)
[2022-12-17] MEDS: LEUCOVORIN IV (12:11)
[2022-12-17] MEDS: DEXTROSE 5% IV ×2 (12:11)
[2022-12-17] MEDS: OXALIPLATIN IV (12:11)
--- NOTE | 2022-12-17 13:22 | ONC.PHA ---
Chemotherapy: S/O: 27 y.o. female, with diagnosis of metastatic gastric adenocarcinoma, is her for cycle 4 mFOLFOX6 and Nivolumab chemotherapy: Nivolumab 240mg, Oxaliplatin 85mg/m? (150mg), Leucovorin 400mg/m? (690mg), and 5FU bolus 400mg/m? (700mg), cycle 14 days. Today Wt = 62.2 kg, BSA = 1.65 m? A/P: Reviewed chemotherapy order: Oxaliplatin, Leucovorin and 5-FU doses are calculated using actual BW. Reviewed chemotherapy dose: Nivolumab, oxaliplatin, leucovorin and 5-FU doses are appropriate. Reviewed today labs: all pertinent labs are appropriate, except AST/ALT/alkaline phos = 46 (1.3x UNL)/42 (1.2x UNL)/158 (1.3x UNL) - no dose adjustment recommend. Today TSH = 1.03 (WNL). Urine test is negative. Reviewed MD today note, continue FOLFOX and Nivolumab. Allergies Allergy/AdvReac Type Severity Reaction Status Date / Time No Known Drug Allergies Allergy Verified 11/06/22 15:14 Diagnosis Malignant neoplasm of cardia 12/17/22 Malignant neoplasm of stomach, unspecified 12/17/22 Secondary malignant neoplasm of retroperitoneum and peritoneum 12/17/22 Malignant ascites 12/17/22 Vital Signs Pulse Rate 95 12/17/22 09:10 Respiratory Rate 18 12/17/22 09:10 Blood Pressure 120/79 12/17/22 09:10 Pulse Oximetry 98 12/17/22 09:10 Weight 62.2 kg 12/17/22 08:40 Laboratory WBC 5.5 X10^3/uL (4.5-11.0) 12/17/22 08:50 RBC 3.93 X10^6/uL (4.0-5.2) L 12/17/22 08:50 Hgb 9.5 g/dL (12.0-16.0) L 12/17/22 08:50 Hct 28.8 % (36-46) L 12/17/22 08:50 Plt Count 205 X10^3/uL (150-400) 12/17/22 08:50 Neut # (Auto) 3600 /uL (6482-9181) 12/17/22 08:50 Neutrophils # (Manual) 5694 /uL (9689-4143) 11/20/22 09:20 Creatinine 0.48 mg/dL (0.52-1.04) L 12/17/22 08:50 Estimated GFR > 60 mL/min (>60) 12/17/22 08:50 Calcium 8.4 mg/dL (8.4-10.2) 12/17/22 08:50 Total Bilirubin 0.5 mg/dL (0.2-1.3) 12/17/22 08:50 AST 46 IU/L (14-36) H 12/17/22 08:50 ALT 42 IU/L (<35) H 12/17/22 08:50 Alkaline Phosphatase 158 U/L (38-126) H 12/17/22 08:50
[2022-12-17] MEDS: ISOOSMOTIC VEHICLE IV (15:04)
[2022-12-17] MEDS: FLUOROURACIL IV (15:04)
--- NOTE | 2022-12-17 15:11 | ONC.SCHED ---
Referral to Dietary: This referral was faxed to Dietary and received confirmation that it went through. Nursing to email Lesa Benjamin
--- NOTE | 2022-12-17 16:00 | PC.NURSE ---
CADD PUMP: CASETTE DOSE CHECKED WITH TRINIDAD ESCOBAR; BLOOD RETURN POSITIVE, TUBING ATTACHED WITH EQUASHIELD, PUMP STARTED AND RUNNING CONFIRMED. PATIENT INFORMED TO MAKE APPT FOR [facility].
[2022-12-19 13:53] VITALS: BP 124/85; PULSE 107; RESP 16; TEMP 35.7; O2SAT 100
[2022-12-19] MEDS: ONDANSETRON 4 MG/2 ML INJ IV (14:48)
--- NOTE | 2022-12-19 15:32 | PC.NURSE ---
PUMP DISCONNECT Verified infusion pump complete. VSS. Pump de-accessed per protocol, + blood return. Pt stated she has had nausea and vomiting for the past two days. Pt has PO zofran and olanzapine at home, but reports they have not been effective. Niecy also stated that she has not been able to keep food or fluids down today. She has been doing her TPN infusions nightly without issue. Pt did not have a paracentesis on 12/17, and does not believe her nausea is due to ascites. Dr. Collier contacted at [facility] and he was made aware of assessment data. Dr. Collier stated that the Pt should be getting adequate hydration through the TPN, and he did not want to give Pt IV fluids at this time. New orders received for 4mg IV zofran to be given. This RN encouraged Pt to try and sip small amounts of water throughout the day. Educated Pt and her brother (Giuliano) to call the regional engagement consultant physician line if nausea/vomiting persists over the weekend. Pt voiced understanding. Port de-accessed per protocol.
--- NOTE | 2022-12-23 13:27 | PC.NURSE ---
mouth sores: per patient's brother she has developed mouth sores in the last couple days causing painful swallowing and soreness of the throat. It is difficult to swallow and yawn. Patient has been rinsing her mouth with baking soda and salt solutions with minimal relief. Brother stated that he observed multiple white coated raised lesions in the mouth and a white coating of the tongue. Report made to Dr. Mario and [facility]
[2022-12-24 14:18] LABS: Add Manual Diff / Slide Review NO; Basophils Absolute Auto 0 /uL (0-100); Eosinophils Absolute Auto 100 /uL (0-450); Eosinophils Percent Auto 2.4 % (2-4); Hematocrit 26.8 % (36-46); Hemoglobin 8.8 g/dL (12.0-16.0); Lymphocytes Absolute Auto 1500 /uL (1100-4500); Lymphocytes Percent Auto 36.7 % (25-40); Mean Corpuscular Hemoglobin 24.1 PG (26-34); Monocytes Absolute Auto 300 /uL (0-900); Monocytes Percent Auto 7.5 % (3-14); Neutrophils Absolute Auto 2200 /uL (1500-7000); Neutrophils Percent Auto 52.4 % (50-75); Platelet Count 220 X10^3/uL (150-400); Red Blood Cell Count 3.67 X10^6/uL (4.0-5.2); White Blood Cell Count 4.1 X10^3/uL (4.5-11.0)
[2022-12-24 14:32] LABS: Alanine Aminotransferase 46 IU/L (<35); Albumin 3.3 g/dL (3.5-5.0); Alkaline Phosphatase 137 U/L (38-126); Aspartate Aminotransferase 36 IU/L (14-36); Bilirubin Total 0.4 mg/dL (0.2-1.3); Blood Urea Nitrogen 18 mg/dL (7-17); Calcium 8.4 mg/dL (8.4-10.2); Carbon Dioxide 26 mmol/L (22-32); Chloride 97 mmol/L (98-107); Estimated Glomerular Filt Rate > 60 mL/min (>60); Globulin 3.4 g/dL (1.7-4.1); Glucose 102 mg/dL (70-100); HEMOLYSIS < 15 (0-50); Sodium 129 mmol/L (137-145); Total Protein 6.7 g/dL (6.3-8.2)
--- NOTE | 2022-12-25 12:45 | ONC.MSW ---
Dietary Referral-update Activity: pot puncher, Jolie, sent this message re: pt's dietary referral (due to weight loss): 1. Niecy has a dietitian and pharmacist who manage her TPN through her home infusion company. They would be the ones to address her recent weight loss and make adjustments to her TPN since that is how she is getting the majority of her nourishment. They should be monitoring her weight and labs regularly and making adjustments, but I would defer to them instead of me.
--- NOTE | 2022-12-30 11:41 | ONC.SCHED ---
Referral to Genetics Counseling: This was fax to on 12/17/22 and then re-faxed on 12/30/22. I requested Medical Records send the referral again DIDIER as Emergent.
[2022-12-30 14:00] LABS: Add Manual Diff / Slide Review NO; Basophils Absolute Auto 0 /uL (0-100); Basophils Percent Auto 0.3 % (0-2); Eosinophils Absolute Auto 0 /uL (0-450); Eosinophils Percent Auto 0.8 % (2-4); Hematocrit 26.2 % (36-46); Hemoglobin 8.7 g/dL (12.0-16.0); Lymphocytes Absolute Auto 700 /uL (1100-4500); Lymphocytes Percent Auto 18.4 % (25-40); Mean Corpuscular Hemoglobin 24.2 PG (26-34); Mean Corpuscular Volume 73.2 fL (80-100); Monocytes Absolute Auto 300 /uL (0-900); Monocytes Percent Auto 8.1 % (3-14); Neutrophils Absolute Auto 2800 /uL (1500-7000); Neutrophils Percent Auto 72.4 % (50-75); Platelet Count 173 X10^3/uL (150-400); Red Blood Cell Count 3.58 X10^6/uL (4.0-5.2); Red Cell Distribution Width 20.5 % (11.6-14.8); White Blood Cell Count 3.8 X10^3/uL (4.5-11.0)
[2022-12-30 14:15] LABS: Alanine Aminotransferase 42 IU/L (<35); Albumin 3.5 g/dL (3.5-5.0); Albumin Globulin Ratio 1.1 (1.0-2.8); Alkaline Phosphatase 179 U/L (38-126); Aspartate Aminotransferase 48 IU/L (14-36); BUN Creatinine Ratio 36.4 (6-22); Bilirubin Total 0.7 mg/dL (0.2-1.3); Blood Urea Nitrogen 16 mg/dL (7-17); Calcium 8.5 mg/dL (8.4-10.2); Carbon Dioxide 25 mmol/L (22-32); Chloride 100 mmol/L (98-107); Estimated Glomerular Filt Rate > 60 mL/min (>60); Globulin 3.2 g/dL (1.7-4.1); Glucose 100 mg/dL (70-100); HEMOLYSIS < 15 (0-50); INR 1.1 (0.9-1.3); Potassium 3.8 mmol/L (3.4-5.1); Sodium 132 mmol/L (137-145); Total Protein 6.7 g/dL (6.3-8.2)
[2022-12-30 14:46] LABS: Cancer Antigen 125 77.2 U/mL (0-35)
[2022-12-31 08:48] VITALS: BP 117/64; PULSE 91; RESP 18; TEMP 36.2; O2SAT 98
--- NOTE | 2022-12-31 09:15 | ONC.PN ---
PN -Subjective - Date of Visit Date of visit: 12/31/22 Chief Complaint: Gastric cancer Interval history: Niecy is a very pleasant 27-year-old female diagnosed with metastatic gastric cancer and is currently undergoing treatment with FOLFOX plus nivolumab chemo immunotherapy. She is here for next cycle and is overall feeling much better. She is now eating solids and has not had a paracentesis in over 2 weeks. She denies fever, chills, diarrhea. She continues on TPN. - Patient Self-Reported Symptoms SR Constitution: Chills, Weight loss/gain SR eye issues: Vision changes SR respiratory issues: Difficulty breathing SR Cardiovascular issues: Shortness of breath with activity or lying flat, Extreme swelling, Dizzy/lightheaded SR Skin issues: Skin rash or itching, Hair loss or scalp prob SR Gastrointestinal issues: Nausea, Vomiting, Abdominal pain SR Genitourinary issues: Burning/painful urination SR Musculoskeletal issues: Cold hands or feet SR Neuro issues: Tremors or shaking Home Medications and Allergies Home Medications Medication Instructions Recorded Confirmed Type hydroxyzine pamoate 25 mg capsule 25 mg PO Q6HR PRN Itching #30 caps 11/02/22 11/13/22 Rx morphine 15 mg immediate release 30 mg PO Q4H PRN Pain, Severe 11/02/22 11/13/22 Rx tablet (7-10) #60 tabs olanzapine 10 mg disintegrating 5 mg PO DAILY #30 tabs 11/02/22 11/13/22 Rx tablet (Zyprexa Zydis) ondansetron 8 mg disintegrating 8 mg PO Q8H PRN nausea and 11/02/22 11/13/22 Rx tablet vomiting #30 tabs pantoprazole 40 mg tablet,delayed 40 mg PO DAILY #30 tabs 11/02/22 11/13/22 Rx release (Protonix) sennosides 8.6 mg-docusate sodium 2 tab-cap PO BID #60 caps 11/02/22 11/13/22 Rx 50 mg capsule (Senna Plus) hydrocortisone 1 % topical cream 1 applic topical TID PRN Itching 11/11/22 11/13/22 Rx #100 grams hydroxyzine pamoate 25 mg capsule 25 mg PO Q4HR PRN Nausea #100 caps 11/11/22 11/13/22 Rx lidocaine 5 % topical patch 1 ea topical BEDTIME #30 ea 11/11/22 11/13/22 Rx methadone 10 mg tablet 10 mg PO Q8H #21 tabs 11/11/22 11/13/22 Rx methadone 10 mg tablet 20 mg PO Q8H #42 tabs 11/11/22 11/13/22 Rx scopolamine base 1 mg over 3 days 1 patch topical Q72H #10 ea 11/11/22 11/13/22 Rx transdermal patch (Transderm-Scop) amoxicillin 875 mg-potassium 1 tab PO BID #20 tabs 11/22/22 Rx clavulanate 125 mg tablet methadone 10 mg tablet 10 mg PO TID #10 tabs 11/22/22 Rx methadone 10 mg tablet 30 mg PO TID PRN Pain (Scale Score 11/27/22 Rx 1-3) #270 tabs morphine 30 mg immediate release 30 mg PO Q6H PRN pain #120 tabs 11/27/22 Rx tablet fluorouracil 2.5 gram/50 mL 4,000 mg (80 mL) IV NOW 12/17/22 Rx intravenous solution CHEMOTHERAPY #1 device mouthwashes 30 ml mucous membrane BID mouth 12/23/22 Rx sores #30 mL Allergies Allergy/AdvReac Type Severity Reaction Status Date / Time No Known Drug Allergies Allergy Verified 11/06/22 15:14 Exam Vital signs: Vital Signs Temp Pulse Resp BP Pulse Ox 12/31/22 08:48 97.1 F L 91 H 18 117/64 98 Intake and Output 12/30/22 12/31/22 12/31/22 23:59 07:59 15:59 Other: Weight 64 kg Patient Weight 12/31/22 23:59 Weight 64 kg - Constitutional positive no acute distress, negative diaphoretic - Routine HEENT Exam Head: Present: normocephalic Eye: Present: PERRL (Conjunctivae normal) ENT: Present: mucous membranes moist - Routine Respiratory Exam Present: Clear to auscultation bilaterally. Absent: rales, respiratory distress, wheezes - Routine Cardiovascular Exam Present: RRR. Absent: murmur, irregular rhythm - Routine Abdominal Exam Present: soft. Absent: tenderness, distended, guarding - Routine Extremities Exam Present: full ROM. Absent: edema, tenderness (No Swelling) - Routine Skin Exam Present: dry, warm. Absent: lesions (No Bruising), jaundice - Routine Neurological Exam Present: alert, oriented X3. Absent: sensory deficit, motor deficit - Routine Psychiatric Exam Present: normal affect, normal thought process, cooperative. Absent: anxious, agitated Results - Labs Laboratory Last Values WBC 3.8 X10^3/uL (4.5-11.0) L 12/30/22 13:45 RBC 3.58 X10^6/uL (4.0-5.2) L 12/30/22 13:45 Hgb 8.7 g/dL (12.0-16.0) L 12/30/22 13:45 Hct 26.2 % (36-46) L 12/30/22 13:45 MCV 73.2 fL (80-100) L 12/30/22 13:45 MCH 24.2 PG (26-34) L 12/30/22 13:45 MCHC 33.0 % (30-36) 12/30/22 13:45 RDW 20.5 % (11.6-14.8) H 12/30/22 13:45 Plt Count 173 X10^3/uL (150-400) 12/30/22 13:45 Neut % (Auto) 72.4 % (50-75) 12/30/22 13:45 Lymph % (Auto) 18.4 % (25-40) L 12/30/22 13:45 [place] % (Auto) 8.1 % (3-14) 12/30/22 13:45 Eos % (Auto) 0.8 % (2-4) L 12/30/22 13:45 Baso % (Auto) 0.3 % (0-2) 12/30/22 13:45 Neut # (Auto) 2800 /uL (5120-6673) 12/30/22 13:45 Lymph # (Auto) 700 /uL (3481-4224) L 12/30/22 13:45 [place] # (Auto) 300 /uL (0-900) 12/30/22 13:45 Eos # (Auto) 0 /uL (0-450) 12/30/22 13:45 Baso # (Auto) 0 /uL (0-100) 12/30/22 13:45 Total Counted 100 11/20/22 09:20 Seg Neutrophils % 73.0 % (38-70) H 11/20/22 09:20 Lymphocytes % (Manual) 16.0 % (25-45) L 11/20/22 09:20 Monocytes % (Manual) 10.0 % (2-11) 11/20/22 09:20 Basophils % (Manual) 1.0 % (0-1) 11/20/22 09:20 Neutrophils # (Manual) 5694 /uL (1689-5355) 11/20/22 09:20 Nucleated RBCs Cancelled 12/30/22 13:45 Hypersegmented Neuts Cancelled 12/30/22 13:45 Hypogranular Neuts Cancelled 12/30/22 13:45 Reactive Lymphocytes Cancelled 12/30/22 13:45 Smudge Cells Cancelled 12/30/22 13:45 Other Cell Type Cancelled 12/30/22 13:45 Toxic Granulation Cancelled 12/30/22 13:45 Toxic Vacuolation Cancelled 12/30/22 13:45 Dohle Bodies Cancelled 12/30/22 13:45 Trey Rods Cancelled 12/30/22 13:45 WBC Morphology Comment Cancelled 12/30/22 13:45 Platelet Estimate Cancelled 12/30/22 13:45 Clumped Platelets Cancelled 12/30/22 13:45 Plt Morphology Comment Cancelled 12/30/22 13:45 RBC Morphology Cancelled 12/30/22 13:45 Dimorphic RBCs Cancelled 12/30/22 13:45 Polychromasia Cancelled 12/30/22 13:45 Hypochromasia Cancelled 12/30/22 13:45 Poikilocytosis Cancelled 12/30/22 13:45 Basophilic Stippling Cancelled 12/30/22 13:45 Anisocytosis Cancelled 12/30/22 13:45 Microcytosis Cancelled 12/30/22 13:45 Macrocytosis Cancelled 12/30/22 13:45 Spherocytes Cancelled 12/30/22 13:45 Pappenheimer Bodies Cancelled 12/30/22 13:45 Sickle Cells Cancelled 12/30/22 13:45 Target Cells Cancelled 12/30/22 13:45 Tear Drop Cells Cancelled 12/30/22 13:45 Ovalocytes Cancelled 12/30/22 13:45 Stomatocytes Cancelled 12/30/22 13:45 Helmet Cells Cancelled 12/30/22 13:45 Sood-Cloverly Bodies Cancelled 12/30/22 13:45 Hudgins Rings Cancelled 12/30/22 13:45 Tereza Cells Cancelled 12/30/22 13:45 Acanthocytes (Spur) Cancelled 12/30/22 13:45 Rouleaux Cancelled 12/30/22 13:45 Schistocytes Cancelled 12/30/22 13:45 PT 13.0 SECONDS (10.1-12.7) H 12/30/22 13:45 INR 1.1 (0.9-1.3) 12/30/22 13:45 Sodium 132 mmol/L (137-145) L 12/30/22 13:45 Potassium 3.8 mmol/L (3.4-5.1) 12/30/22 13:45 Chloride 100 mmol/L (98-107) 12/30/22 13:45 Carbon Dioxide 25 mmol/L (22-32) 12/30/22 13:45 BUN 16 mg/dL (7-17) 12/30/22 13:45 Creatinine 0.44 mg/dL (0.52-1.04) L 12/30/22 13:45 Estimated GFR > 60 mL/min (>60) 12/30/22 13:45 BUN/Creatinine Ratio 36.4 (6-22) H 12/30/22 13:45 Glucose 100 mg/dL (70-100) 12/30/22 13:45 Calcium 8.5 mg/dL (8.4-10.2) 12/30/22 13:45 Total Bilirubin 0.7 mg/dL (0.2-1.3) 12/30/22 13:45 AST 48 IU/L (14-36) H 12/30/22 13:45 ALT 42 IU/L (<35) H 12/30/22 13:45 Alkaline Phosphatase 179 U/L (38-126) H 12/30/22 13:45 Total Protein 6.7 g/dL (6.3-8.2) 12/30/22 13:45 Albumin 3.5 g/dL (3.5-5.0) 12/30/22 13:45 Globulin 3.2 g/dL (1.7-4.1) 12/30/22 13:45 Albumin/Globulin Ratio 1.1 (1.0-2.8) 12/30/22 13:45 Carcinoembryonic Ag 1.6 ng/mL (0.1-3.0) 11/13/22 11:50 CA 125 Antigen 77.2 U/mL (0-35) H 12/30/22 13:45 TSH 1.03 uIU/mL (0.47-4.68) 12/17/22 10:40 Urine Test Negative (Negative) 12/17/22 09:05 Blood Type B Positive 11/13/22 11:50 Antibody Screen Negative 11/13/22 11:50 Crossmatch See Detail 11/13/22 11:50 - Imaging Additional studies: Procedures Drainage of Peritoneal Cavity, Percutaneous Approach (10/16/22) Drainage of Peritoneal Cavity, Percutaneous Approach, Diagnostic (10/16/22) Excision of Esophagus, Via Natural or Artificial Opening Endoscopic, Diagnostic (10/16/22) Excision of Stomach, Via Natural or Artificial Opening Endoscopic, Diagnostic (10/16/22) Fluoroscopy of Right Subclavian Vein, Guidance (10/16/22) Insertion of Infusion Device into Right Subclavian Vein, Percutaneous Approach (10/16/22) Insertion of Infusion Device into Superior Vena Cava, Percutaneous Approach (10/16/22) Insertion of Totally Implantable Vascular Access Device into Chest Subcutaneous Tissue and Fascia, Open Approach (10/16/22) Introduction of Nutritional Substance into Peripheral Vein, Percutaneous Approach (10/16/22) Transfusion of Nonautologous Red Blood Cells into Central Vein, Percutaneous Approach (10/16/22) Assessment and Plan (1) Gastric adenocarcinoma Status: Acute Niecy Stokes is a 27 year old female with metastatic gastric cancer on FOLFOX + Nivolumab. Overall doing better in terms of energy and less ascites. She is doing much better now with no need for paracentesis and is eating solids on her own. Anticipate tapering her TPN as her caloric intake improves. HEr CT shows excellent reponse to treatment with resolution of pleural effusions and ascites although she still has omental caking. Her ca-125 is markedly reduced. Pt was recently hospitalized at [facility] on ongoing abdominal pain and [address] of the abdomen showed diffuse peritoneal carcinomatosis. She subsequently underwent EGD on 10/18/2022 which showed a GE junction mass with diffuse gastric wall changes pathology showed poorly differentiated adenocarcinoma. The patient also had malignant ascites and had had multiple paracentesis. Due to poor nutrition the patient was also on TPN which is continued chronically. While she was in the hospital she received her 1st dose of FOLFOX plus nivolumab on 10/30/2022 after I initially saw her at that point in time. Plan continue FOLFOX and Nivolumab Continue TPN, will likely be able to taper now that she is eating. RTC in 2 weeks. 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 This is consistent with her family history and which her father also had gastric cancer in his 40s. I explained to her that the cancer risk for the CDH1 mutation is rather high and that she should have her children and her siblings tested for this as there is a potential risk that they have inherited this genetic mutation as well. I will go ahead and refer her to genetics counseling for a more thorough review of the implications of her positive test. I did explain to her that there is a 56-83% chance of gastric cancer in patients with this mutation as well as a 39-52% risk of breast cancer in patients with this mutation as well. Early surveillance is recumbent recommended for both of these malignancies in reviewed this with her along with general recommendations from her [facility] hereditary cancer test results. The patient understands this and her brother was present as well who also understands that he has a risk for this as well. 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
[2022-12-31 09:52] LABS: Pregnancy Test Urine Negative (Negative)
[2022-12-31] MEDS: ONDANSETRON 16 MG in SODIUM CHLORIDE 0.9% 50 ML 232 MG IV (10:25)
[2022-12-31] MEDS: DEXTROSE 5 % IN WATER 100 ML 21 ML IV (10:26)
[2022-12-31] MEDS: NIVOLUMAB 240 MG in SODIUM CHLORIDE 0.9% (CHEMO) 100 ML 248 ML IV (11:17)
[2022-12-31] MEDS: LEUCOVORIN IV (12:00)
[2022-12-31] MEDS: DEXTROSE 5% IV ×2 (12:00→13:18)
[2022-12-31] MEDS: OXALIPLATIN IV (13:18)
--- NOTE | 2022-12-31 14:26 | ONC.PHA ---
Chemotherapy: S/O: 27 y.o. female, with diagnosis of metastatic gastric adenocarcinoma, is her for cycle 5 [id number] and Nivolumab chemotherapy: Nivolumab 240mg, Oxaliplatin 85mg/m? (150mg), Leucovorin 400mg/m? (700mg), and 5FU bolus 400mg/m? (690mg), cycle 14 days. Today Wt = 64 kg, BSA = 1.67 m? A/P: Reviewed chemotherapy order: Oxaliplatin, Leucovorin and 5-FU doses are calculated using actual BW. Reviewed chemotherapy dose: Nivolumab, oxaliplatin, leucovorin and 5-FU doses are appropriate. Reviewed 12/30/2022labs: all pertinent labs are appropriate, except AST/ALT/alkaline phos = 48 (1.3x UNL)/42 (1.2x UNL)/179 (1.4x UNL) - no dose adjustment recommend. Last TSH (12/17/2022) = 1.03 (WNL). Today urine test is negative. Reviewed MD today note, continue FOLFOX and Nivolumab. Continue TPN,, will likely be able to taper now that patient is eating. Allergies Allergy/AdvReac Type Severity Reaction Status Date / Time No Known Drug Allergies Allergy Verified 11/06/22 15:14 Diagnosis Malignant neoplasm of cardia 12/31/22 Malignant neoplasm of stomach, unspecified 12/31/22 Secondary malignant neoplasm of retroperitoneum and peritoneum 12/31/22 Malignant ascites 12/31/22 Vital Signs Temperature 97.1 F 12/31/22 08:48 Pulse Rate 91 12/31/22 08:48 Respiratory Rate 18 12/31/22 08:48 Blood Pressure 117/64 12/31/22 08:48 Pulse Oximetry 98 12/31/22 08:48 Weight 64 kg 12/31/22 08:44 Laboratory WBC 3.8 X10^3/uL (4.5-11.0) L 12/30/22 13:45 RBC 3.58 X10^6/uL (4.0-5.2) L 12/30/22 13:45 Hgb 8.7 g/dL (12.0-16.0) L 12/30/22 13:45 Hct 26.2 % (36-46) L 12/30/22 13:45 Plt Count 173 X10^3/uL (150-400) 12/30/22 13:45 Neut # (Auto) 2800 /uL (3878-4891) 12/30/22 13:45 Neutrophils # (Manual) 5694 /uL (9233-8467) 11/20/22 09:20 Creatinine 0.44 mg/dL (0.52-1.04) L 12/30/22 13:45 Estimated GFR > 60 mL/min (>60) 12/30/22 13:45 Calcium 8.5 mg/dL (8.4-10.2) 12/30/22 13:45 Total Bilirubin 0.7 mg/dL (0.2-1.3) 12/30/22 13:45 AST 48 IU/L (14-36) H 12/30/22 13:45 ALT 42 IU/L (<35) H 12/30/22 13:45 Alkaline Phosphatase 179 U/L (38-126) H 12/30/22 13:45
[2022-12-31] MEDS: ISOOSMOTIC VEHICLE IV (14:37)
[2022-12-31] MEDS: FLUOROURACIL IV (14:37)
--- NOTE | 2023-01-01 10:47 | ONC.MSW ---
Description: Financial Assistance Activity: Completed the application for [facility] for financial assistance, scanned and emailed it to them for review. Will update patient once we have a determination.
--- NOTE | 2023-01-01 14:10 | ONC.SCHED ---
Scheduling: This financing analyst is requesting MD order a fup for the patient if appropriate.
[2023-01-02 13:34] VITALS: BP 135/84; PULSE 103; RESP 20; TEMP 36.8; O2SAT 100
--- NOTE | 2023-01-02 13:35 | PC.NURSE ---
Addendum entered by Eleni Hugo R.N. 01/02/23 15:01: CHEST PAIN CONTINUED. CHEST XRAY UNREMARKABLE. PATIENT STATES THAT PAIN IN CHEST IS BETTER. BLOOD PRESSURE IS BETTER. DR. MARIO STATES THAT PATIENT MAY GO HOME AND THIS MAY HAVE BEEN REACTION TO THE 5FU. PATIENT INSTRUCTED TO GO TO THE ER OR CALL 911 IF PAIN RETURNS. Original Note: Chest Pain Patient here for pump discontinuation. Patient complaining of severe chest pain that started 24 hours ago. Patient states that she thought it was normal with the pump. Pump stopped. VS taken, patient with elevated HR to 104-111. Floururicil pump with 0.2ml of fluid remaining in reservoir. 5FU wasted with Ilda Reyes RN witnessing. Dr. Mario at chairside during this time. STAT EKG ordered and performed by RT. STAT 2view chest x-ray ordered per verbal orders from Dr. Mario. Patient states no relief from chest pain with removal of 5FU pump.
[2023-01-02] MEDS: ONDANSETRON 4 MG/2 ML INJ IV (14:32)
[2023-01-02 14:59] VITALS: BP 114/68; PULSE 95; RESP 16; O2SAT 100
[2023-01-07 13:55] LABS: Add Manual Diff / Slide Review NO; Basophils Absolute Auto 0 /uL (0-100); Basophils Percent Auto 0.7 % (0-2); Eosinophils Absolute Auto 100 /uL (0-450); Eosinophils Percent Auto 2.1 % (2-4); Hematocrit 27.2 % (36-46); Hemoglobin 8.9 g/dL (12.0-16.0); Lymphocytes Absolute Auto 1300 /uL (1100-4500); Mean Corpuscular HGB Conc 32.9 % (30-36); Mean Corpuscular Hemoglobin 24.2 PG (26-34); Mean Corpuscular Volume 73.5 fL (80-100); Monocytes Absolute Auto 300 /uL (0-900); Neutrophils Absolute Auto 2200 /uL (1500-7000); Neutrophils Percent Auto 56.2 % (50-75); Platelet Count 210 X10^3/uL (150-400); Red Cell Distribution Width 20.1 % (11.6-14.8); White Blood Cell Count 3.9 X10^3/uL (4.5-11.0)
[2023-01-07 14:17] LABS: Alanine Aminotransferase 38 IU/L (<35); Albumin 3.6 g/dL (3.5-5.0); Albumin Globulin Ratio 1.1 (1.0-2.8); Alkaline Phosphatase 155 U/L (38-126); Aspartate Aminotransferase 39 IU/L (14-36); BUN Creatinine Ratio 38.3 (6-22); Bilirubin Total 0.5 mg/dL (0.2-1.3); Blood Urea Nitrogen 18 mg/dL (7-17); Calcium 8.7 mg/dL (8.4-10.2); Carbon Dioxide 25 mmol/L (22-32); Chloride 100 mmol/L (98-107); Estimated Glomerular Filt Rate > 60 mL/min (>60); Globulin 3.4 g/dL (1.7-4.1); Glucose 102 mg/dL (70-100); HEMOLYSIS < 15 (0-50); Sodium 133 mmol/L (137-145)
[2023-01-07 14:20] LABS: Anisocytosis 2+
--- NOTE | 2023-01-13 13:14 | ONC.SCHED ---
Referral to Genetic Counseling: I have tried 3 times now to send the referral to the last time getting a new fax number. Today I called them to follow up and can't reach their clinic but heard on VM that they are not accepting new referrals from outside doctors. I am now trying to get the patient going at [facility]. I have let Rose know and I will also make note to Dr. Collier as well.
--- NOTE | 2023-01-13 13:24 | ONC.SCHED ---
Referral to Genetic Counseling: Spoke to an machine operator packaging at [facility] who said that there is not a fax number but only a phone number. I left a VM there and asked to be called back. The phone number is [phone]. The machine operator packaging with [facility] said that she didn't think there was anyone doing genetic counseling there. I also spoke to Candie who said she would call [facility] to see if they could do the genetic counseling. Patient is coming in here tomorrow.
[2023-01-14 09:17] LABS: Add Manual Diff / Slide Review NO; Basophils Absolute Auto 0 /uL (0-100); Basophils Percent Auto 0.9 % (0-2); Eosinophils Absolute Auto 100 /uL (0-450); Eosinophils Percent Auto 1.9 % (2-4); Hematocrit 26.7 % (36-46); Hemoglobin 8.6 g/dL (12.0-16.0); Lymphocytes Absolute Auto 1300 /uL (1100-4500); Lymphocytes Percent Auto 27.3 % (25-40); Mean Corpuscular HGB Conc 32.4 % (30-36); Mean Corpuscular Hemoglobin 23.9 PG (26-34); Mean Corpuscular Volume 73.8 fL (80-100); Monocytes Absolute Auto 400 /uL (0-900); Monocytes Percent Auto 8.4 % (3-14); Neutrophils Absolute Auto 2900 /uL (1500-7000); Neutrophils Percent Auto 61.5 % (50-75); Platelet Count 239 X10^3/uL (150-400); Red Blood Cell Count 3.61 X10^6/uL (4.0-5.2); White Blood Cell Count 4.7 X10^3/uL (4.5-11.0)
--- NOTE | 2023-01-14 09:25 | ONC.PN ---
PN -Subjective - Date of Visit Date of visit: 01/14/23 Chief Complaint: Gastric cancer Interval history: Niecy is a very pleasant 27-year-old female diagnosed with metastatic gastric cancer and is currently undergoing treatment with FOLFOX plus nivolumab chemo immunotherapy. She is here for next cycle and is overall feeling much better. She is now eating solids and has not had a paracentesis in over 4 weeks. She denies fever, chills, diarrhea. She continues on TPN. She is trying to taper down her opiod medications. - Patient Self-Reported Symptoms SR Constitution: Chills, Weight loss/gain SR eye issues: Vision changes SR respiratory issues: Difficulty breathing SR Cardiovascular issues: Shortness of breath with activity or lying flat, Extreme swelling, Dizzy/lightheaded SR Skin issues: Skin rash or itching, Hair loss or scalp prob SR Gastrointestinal issues: Nausea, Vomiting, Abdominal pain SR Genitourinary issues: Burning/painful urination SR Musculoskeletal issues: Cold hands or feet SR Neuro issues: Tremors or shaking Home Medications and Allergies Home Medications Medication Instructions Recorded Confirmed Type hydroxyzine pamoate 25 mg capsule 25 mg PO Q6HR PRN Itching #30 caps 11/02/22 11/13/22 Rx morphine 15 mg immediate release 30 mg PO Q4H PRN Pain, Severe 11/02/22 11/13/22 Rx tablet (7-10) #60 tabs olanzapine 10 mg disintegrating 5 mg PO DAILY #30 tabs 11/02/22 11/13/22 Rx tablet (Zyprexa Zydis) ondansetron 8 mg disintegrating 8 mg PO Q8H PRN nausea and 11/02/22 11/13/22 Rx tablet vomiting #30 tabs pantoprazole 40 mg tablet,delayed 40 mg PO DAILY #30 tabs 11/02/22 11/13/22 Rx release (Protonix) sennosides 8.6 mg-docusate sodium 2 tab-cap PO BID #60 caps 11/02/22 11/13/22 Rx 50 mg capsule (Senna Plus) hydrocortisone 1 % topical cream 1 applic topical TID PRN Itching 11/11/22 11/13/22 Rx #100 grams hydroxyzine pamoate 25 mg capsule 25 mg PO Q4HR PRN Nausea #100 caps 11/11/22 11/13/22 Rx lidocaine 5 % topical patch 1 ea topical BEDTIME #30 ea 11/11/22 11/13/22 Rx methadone 10 mg tablet 10 mg PO Q8H #21 tabs 11/11/22 11/13/22 Rx methadone 10 mg tablet 20 mg PO Q8H #42 tabs 11/11/22 11/13/22 Rx scopolamine base 1 mg over 3 days 1 patch topical Q72H #10 ea 11/11/22 11/13/22 Rx transdermal patch (Transderm-Scop) amoxicillin 875 mg-potassium 1 tab PO BID #20 tabs 11/22/22 Rx clavulanate 125 mg tablet methadone 10 mg tablet 10 mg PO TID #10 tabs 11/22/22 Rx methadone 10 mg tablet 30 mg PO TID PRN Pain (Scale Score 11/27/22 Rx 1-3) #270 tabs morphine 30 mg immediate release 30 mg PO Q6H PRN pain #120 tabs 11/27/22 Rx tablet fluorouracil 2.5 gram/50 mL 4,000 mg (80 mL) IV NOW 12/17/22 Rx intravenous solution CHEMOTHERAPY #1 device mouthwashes 30 ml mucous membrane BID mouth 12/23/22 Rx sores #30 mL prochlorperazine maleate 10 mg 10 mg PO Q6H PRN Nausea #30 tabs 01/01/23 Rx tablet (Compazine) Allergies Allergy/AdvReac Type Severity Reaction Status Date / Time No Known Drug Allergies Allergy Verified 11/06/22 15:14 Exam Vital signs: Intake and Output 01/13/23 01/14/23 01/14/23 23:59 07:59 15:59 Other: Weight 63.5 kg Patient Weight 01/14/23 23:59 Weight 63.5 kg Results - Labs Laboratory Last Values WBC 4.7 X10^3/uL (4.5-11.0) 01/14/23 09:03 RBC 3.61 X10^6/uL (4.0-5.2) L 01/14/23 09:03 Hgb 8.6 g/dL (12.0-16.0) L 01/14/23 09:03 Hct 26.7 % (36-46) L 01/14/23 09:03 MCV 73.8 fL (80-100) L 01/14/23 09:03 MCH 23.9 PG (26-34) L 01/14/23 09:03 MCHC 32.4 % (30-36) 01/14/23 09:03 RDW 20.0 % (11.6-14.8) H 01/14/23 09:03 Plt Count 239 X10^3/uL (150-400) 01/14/23 09:03 Neut % (Auto) 61.5 % (50-75) 01/14/23 09:03 Lymph % (Auto) 27.3 % (25-40) 01/14/23 09:03 [place] % (Auto) 8.4 % (3-14) 01/14/23 09:03 Eos % (Auto) 1.9 % (2-4) L 01/14/23 09:03 Baso % (Auto) 0.9 % (0-2) 01/14/23 09:03 Neut # (Auto) 2900 /uL (2617-8326) 01/14/23 09:03 Lymph # (Auto) 1300 /uL (5331-1240) 01/14/23 09:03 [place] # (Auto) 400 /uL (0-900) 01/14/23 09:03 Eos # (Auto) 100 /uL (0-450) 01/14/23 09:03 Baso # (Auto) 0 /uL (0-100) 01/14/23 09:03 Total Counted 100 11/20/22 09:20 Seg Neutrophils % 73.0 % (38-70) H 11/20/22 09:20 Lymphocytes % (Manual) 16.0 % (25-45) L 11/20/22 09:20 Monocytes % (Manual) 10.0 % (2-11) 11/20/22 09:20 Basophils % (Manual) 1.0 % (0-1) 11/20/22 09:20 Neutrophils # (Manual) 5694 /uL (2272-3480) 11/20/22 09:20 Nucleated RBCs Cancelled 12/30/22 13:45 Hypersegmented Neuts Cancelled 12/30/22 13:45 Hypogranular Neuts Cancelled 12/30/22 13:45 Reactive Lymphocytes Cancelled 12/30/22 13:45 Smudge Cells Cancelled 12/30/22 13:45 Other Cell Type Cancelled 12/30/22 13:45 Toxic Granulation Cancelled 12/30/22 13:45 Toxic Vacuolation Cancelled 12/30/22 13:45 Dohle Bodies Cancelled 12/30/22 13:45 Trey Rods Cancelled 12/30/22 13:45 WBC Morphology Comment Cancelled 12/30/22 13:45 Platelet Estimate Cancelled 12/30/22 13:45 Clumped Platelets Cancelled 12/30/22 13:45 Plt Morphology Comment Cancelled 12/30/22 13:45 RBC Morphology See below 01/07/23 13:50 Dimorphic RBCs Cancelled 12/30/22 13:45 Polychromasia Cancelled 12/30/22 13:45 Hypochromasia Cancelled 12/30/22 13:45 Poikilocytosis Cancelled 12/30/22 13:45 Basophilic Stippling Cancelled 12/30/22 13:45 Anisocytosis 2+ H 01/07/23 13:50 Microcytosis Cancelled 12/30/22 13:45 Macrocytosis Cancelled 12/30/22 13:45 Spherocytes Cancelled 12/30/22 13:45 Pappenheimer Bodies Cancelled 12/30/22 13:45 Sickle Cells Cancelled 12/30/22 13:45 Target Cells Cancelled 12/30/22 13:45 Tear Drop Cells Cancelled 12/30/22 13:45 Ovalocytes Cancelled 12/30/22 13:45 Stomatocytes Cancelled 12/30/22 13:45 Helmet Cells Cancelled 12/30/22 13:45 Sood-Prince Bodies Cancelled 12/30/22 13:45 [place] Rings Cancelled 12/30/22 13:45 [place] Cells Cancelled 12/30/22 13:45 Acanthocytes (Spur) Cancelled 12/30/22 13:45 Rouleaux Cancelled 12/30/22 13:45 Schistocytes Cancelled 12/30/22 13:45 PT 13.0 SECONDS (10.1-12.7) H 12/30/22 13:45 INR 1.1 (0.9-1.3) 12/30/22 13:45 Sodium 133 mmol/L (137-145) L 01/07/23 13:50 Potassium 4.0 mmol/L (3.4-5.1) 01/07/23 13:50 Chloride 100 mmol/L (98-107) 01/07/23 13:50 Carbon Dioxide 25 mmol/L (22-32) 01/07/23 13:50 BUN 18 mg/dL (7-17) H 01/07/23 13:50 Creatinine 0.47 mg/dL (0.52-1.04) L 01/07/23 13:50 Estimated GFR > 60 mL/min (>60) 01/07/23 13:50 BUN/Creatinine Ratio 38.3 (6-22) H 01/07/23 13:50 Glucose 102 mg/dL (70-100) H 01/07/23 13:50 Calcium 8.7 mg/dL (8.4-10.2) 01/07/23 13:50 Total Bilirubin 0.5 mg/dL (0.2-1.3) 01/07/23 13:50 AST 39 IU/L (14-36) H 01/07/23 13:50 ALT 38 IU/L (<35) H 01/07/23 13:50 Alkaline Phosphatase 155 U/L (38-126) H 01/07/23 13:50 Total Protein 7.0 g/dL (6.3-8.2) 01/07/23 13:50 Albumin 3.6 g/dL (3.5-5.0) 01/07/23 13:50 Globulin 3.4 g/dL (1.7-4.1) 01/07/23 13:50 Albumin/Globulin Ratio 1.1 (1.0-2.8) 01/07/23 13:50 Carcinoembryonic Ag 1.6 ng/mL (0.1-3.0) 11/13/22 11:50 CA 125 Antigen 77.2 U/mL (0-35) H 12/30/22 13:45 TSH 1.03 uIU/mL (0.47-4.68) 12/17/22 10:40 Urine Test Negative (Negative) 12/31/22 09:40 Blood Type B Positive 11/13/22 11:50 Antibody Screen Negative 11/13/22 11:50 Crossmatch See Detail 11/13/22 11:50 - Imaging Additional studies: Procedures Drainage of Peritoneal Cavity, Percutaneous Approach (10/16/22) Drainage of Peritoneal Cavity, Percutaneous Approach, Diagnostic (10/16/22) Excision of Esophagus, Via Natural or Artificial Opening Endoscopic, Diagnostic (10/16/22) Excision of Stomach, Via Natural or Artificial Opening Endoscopic, Diagnostic (10/16/22) Fluoroscopy of Right Subclavian Vein, Guidance (10/16/22) Insertion of Infusion Device into Right Subclavian Vein, Percutaneous Approach (10/16/22) Insertion of Infusion Device into Superior Vena Cava, Percutaneous Approach (10/16/22) Insertion of Totally Implantable Vascular Access Device into Chest Subcutaneous Tissue and Fascia, Open Approach (10/16/22) Introduction of Nutritional Substance into Peripheral Vein, Percutaneous Approach (10/16/22) Transfusion of Nonautologous Red Blood Cells into Central Vein, Percutaneous Approach (10/16/22) Assessment and Plan (1) Gastric adenocarcinoma Status: Gavin Stokes is a 27 year old female with metastatic gastric cancer on FOLFOX + Nivolumab. Overall has had an excellent response. NO paracentesis now in 4 weeks. Incresing her po intake gradually. Anticipate tapering her TPN as her caloric intake improves. HEr CT shows excellent reponse to treatment with resolution of pleural effusions and ascites although she still has omental caking. She is having genetics counseling session at [facility] in the coming days. Initial presentation: Pt was hospitalized at [facility] on ongoing abdominal pain and [address] of the abdomen showed diffuse peritoneal carcinomatosis. She subsequently underwent EGD on 10/18/2022 which showed a GE junction mass with diffuse gastric wall changes pathology showed poorly differentiated adenocarcinoma. The patient also had malignant ascites and had had multiple paracentesis. Due to poor nutrition the patient was also on TPN which is continued chronically. While she was in the hospital she received her 1st dose of FOLFOX plus nivolumab on 10/30/2022 after I initially saw her at that point in time. Plan Continue FOLFOX and Nivolumab Continue TPN, will likely be able to taper now that she is eating. RTC in 2 weeks. plan to meet with genetics counselor next week at [facility]. 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 This is consistent with her family history and which her father also had gastric cancer in his 40s. I explained to her that the cancer risk for the CDH1 mutation is rather high and that she should have her children and her siblings tested for this as there is a potential risk that they have inherited this genetic mutation as well. I will go ahead and refer her to genetics counseling for a more thorough review of the implications of her positive test. I did explain to her that there is a 56-83% chance of gastric cancer in patients with this mutation as well as a 39-52% risk of breast cancer in patients with this mutation as well. Early surveillance is recumbent recommended for both of these malignancies in reviewed this with her along with general recommendations from her [facility] hereditary cancer test results. The patient understands this and her brother was present as well who also understands that he has a risk for this as well. The patient states that she will contact her chief deputy sheriff as well to have her 2 daughters tested as well.
[2023-01-14 09:30] LABS: Alanine Aminotransferase 34 IU/L (<35); Albumin 3.5 g/dL (3.5-5.0); Albumin Globulin Ratio 1.1 (1.0-2.8); Alkaline Phosphatase 163 U/L (38-126); Aspartate Aminotransferase 38 IU/L (14-36); BUN Creatinine Ratio 48.9 (6-22); Bilirubin Total 0.3 mg/dL (0.2-1.3); Blood Urea Nitrogen 23 mg/dL (7-17); Calcium 8.6 mg/dL (8.4-10.2); Carbon Dioxide 24 mmol/L (22-32); Chloride 104 mmol/L (98-107); Estimated Glomerular Filt Rate > 60 mL/min (>60); Globulin 3.2 g/dL (1.7-4.1); Glucose 92 mg/dL (70-100); HEMOLYSIS < 15 (0-50); Potassium 4.3 mmol/L (3.4-5.1); Sodium 135 mmol/L (137-145); Total Protein 6.7 g/dL (6.3-8.2)
[2023-01-14 09:33] LABS: Pregnancy Test Urine Negative (Negative)
[2023-01-14 09:42] VITALS: BP 103/55; PULSE 87; RESP 16; TEMP 36.9; O2SAT 100
[2023-01-14] MEDS: ONDANSETRON 16 MG in SODIUM CHLORIDE 0.9% 50 ML 232 MG IV (10:21)
[2023-01-14] MEDS: NIVOLUMAB 240 MG in SODIUM CHLORIDE 0.9% (CHEMO) 100 ML 248 ML IV (10:50)
[2023-01-14] MEDS: ALTEPLASE 2 MG/2 ML VIAL IV ×2 (11:08→11:09)
--- NOTE | 2023-01-14 11:18 | ONC.MSW ---
Description: Family FMLA Forms Activity: Completed [place] form for pt's mother to have extended leave pay in order to care for her kids during chemo treatments. Will complete the remaining forms from her employer after they drop them off next week.
--- NOTE | 2023-01-14 11:44 | ONC.PHA ---
Chemotherapy: S/O: 27 y.o. female, with diagnosis of metastatic gastric adenocarcinoma, is her for cycle 9 day 1 [id number] and cycle 6 day 1 Nivolumab chemotherapy: Nivolumab 240mg, Oxaliplatin 85mg/m? (150mg), Leucovorin 400mg/m? (700mg), and 5FU bolus 400mg/m? (690mg), cycle 14 days. Today Wt = 63.5 kg, BSA = 1.68 m? A/P: Reviewed chemotherapy order: Oxaliplatin, Leucovorin and 5-FU doses are calculated using actual BW. Reviewed chemotherapy dose: Nivolumab, oxaliplatin, leucovorin and 5-FU doses are appropriate. Reviewed 01/10/2023labs: all pertinent labs are appropriate, except AST/ALT/alkaline phos = 38 (1.06x UNL)/34 /163 (1.3x UNL) - no dose adjustment recommend. Last TSH (12/17/2022) = 1.03 (WNL). Today urine test is negative. Reviewed MD today note, continue FOLFOX and Nivolumab. Continue TPN, attending notes TPN will be chronic. Allergies Allergy/AdvReac Type Severity Reaction Status Date / Time No Known Drug Allergies Allergy Verified 11/06/22 15:14 Diagnosis Malignant neoplasm of cardia 01/14/23 Malignant neoplasm of stomach, unspecified 01/14/23 Secondary malignant neoplasm of retroperitoneum and peritoneum 01/14/23 Malignant ascites 01/14/23 Vital Signs Temperature 98.4 F 01/14/23 09:42 Pulse Rate 87 01/14/23 09:42 Respiratory Rate 16 01/14/23 09:42 Blood Pressure 103/55 01/14/23 09:42 Pulse Oximetry 100 01/14/23 09:42 Weight 63.5 kg 01/14/23 08:48 Laboratory WBC 4.7 X10^3/uL (4.5-11.0) 01/14/23 09:03 RBC 3.61 X10^6/uL (4.0-5.2) L 01/14/23 09:03 Hgb 8.6 g/dL (12.0-16.0) L 01/14/23 09:03 Hct 26.7 % (36-46) L 01/14/23 09:03 Plt Count 239 X10^3/uL (150-400) 01/14/23 09:03 Neut # (Auto) 2900 /uL (4071-4107) 01/14/23 09:03 Neutrophils # (Manual) 5694 /uL (6594-9763) 11/20/22 09:20 Creatinine 0.47 mg/dL (0.52-1.04) L 01/14/23 09:03 Estimated GFR > 60 mL/min (>60) 01/14/23 09:03 Calcium 8.6 mg/dL (8.4-10.2) 01/14/23 09:03 Total Bilirubin 0.3 mg/dL (0.2-1.3) 01/14/23 09:03 AST 38 IU/L (14-36) H 01/14/23 09:03 ALT 34 IU/L (<35) 01/14/23 09:03 Alkaline Phosphatase 163 U/L (38-126) H 01/14/23 09:03
[2023-01-14] MEDS: LEUCOVORIN IV (11:46)
[2023-01-14] MEDS: DEXTROSE 5 % IN WATER 100 ML 21 ML IV (11:46)
[2023-01-14] MEDS: DEXTROSE 5% IV ×2 (11:46→12:02)
[2023-01-14] MEDS: OXALIPLATIN IV (12:02)
[2023-01-14] MEDS: FLUOROURACIL IV (14:42)
[2023-01-14] MEDS: ISOOSMOTIC VEHICLE IV (14:42)
--- NOTE | 2023-01-14 15:36 | PC.NURSE ---
5fu casette dose checked with Anjelica RN, positive blood return, pump attached with equashield, all clamps open, pump running, patient informed to return in 46 hours at 1315 on 01/16 for pump deaccess.
[2023-01-16 14:16] VITALS: BP 100/49; PULSE 81; RESP 16; TEMP 37; O2SAT 100
--- NOTE | 2023-01-16 14:16 | PC.NURSE ---
PUMP DISCONNECT Verified infusion of 5FU pump complete. BP 100/49. Pt denies lightheadedness, dizziness. Reports some nausea yesterday, controlled with anti-emetics. No vomiting. Stated that she is staying hydrated and continues on TPN. Educated that compazine may cause hypotension. Encouraged to change positions slowly, and notify clinic if she experiences symptoms. Pt voiced understanding. Pump de-accessed per protocol, + blood return.
--- NOTE | 2023-01-16 17:00 | PC.NURSE ---
NAUSEA: PATIENT HERE FOR PUMP D/C. SHE STATED THAT SHE HAS BEEN TAKING THE COMPAZINE Q 6 HOURS SINCE TX ON FRIDAY, OLANZAPINE BEFORE BED AND HAS APPLIED THE SCOPALAMINE PATCH. HOWEVER SHE IS STILL EXPERIENCING SOME NAUSEA. ONDANSETRON ORDERED PER DR LIRA. PATIENT WAS INFORMED THAT PER THE DR LIRA, DUE TO THE INTERACTION WITH METHADONE (WHICH SHE STATED THAT SHE IS TAKING 30 MG ONCE A DAY) SHE SHOULD USE OTHER NAUSEA MEDS FIRST AND USE ONDANSETRON ONLY OCCASIONALLY FOR BREAKTHROUGH NAUSEA. PLAN IS TO ADMINISTER EMEND WITH NEXT TX, ORDERS HAVE BEEN ENTERED. PATIENT VOICED UNDERSTANDING.
--- NOTE | 2023-01-20 14:21 | PC.NURSE ---
HEADACHES/DIZZINESS: PATIENT CALLED REPORTING SEVERE MIGRAINE LIKE HEADACHE (8 ON THE PAIN SCALE) WITH DIZZINESS SINCE LAST FRIDAY. SHE REPORTS DRINKING PLENTY OF WATER AND EVEN INCREASED INTAKE IN THE HEAT. SHE HAS BEEN USING COMPAZINE AND ONDANSETRON FOR NAUSEA. SHE IS USING METHADONE FOR STOMACH PAIN BUT THIS DOES NOT HELP THE HEADACHE. PER DR LIRA SHE WAS TOLD THAT IT IS OK FOR HER TO TAKE UP TO 600MG IBUPROFEN AND THAT WE WILL SCHEDULE A MRI OF THE BRAIN FOR HER. PATIENT VOICED UNDERSTANDING.
--- NOTE | 2023-01-20 16:53 | ONC.SCHED ---
[place] [facility]: Patient has been contacted and has an apt. via video on 02/27/23 9:00AM.
--- NOTE | 2023-01-21 08:50 | ONC.SCHED ---
MRI auth: This has been submitted with [facility] as urgent.
[2023-01-21 15:21] LABS: Add Manual Diff / Slide Review NO; Basophils Absolute Auto 0 /uL (0-100); Basophils Percent Auto 0.5 % (0-2); Eosinophils Absolute Auto 0 /uL (0-450); Eosinophils Percent Auto 0.8 % (2-4); Hematocrit 25.8 % (36-46); Hemoglobin 8.5 g/dL (12.0-16.0); Lymphocytes Absolute Auto 700 /uL (1100-4500); Lymphocytes Percent Auto 18.1 % (25-40); Mean Corpuscular HGB Conc 32.9 % (30-36); Mean Corpuscular Hemoglobin 24.4 PG (26-34); Mean Corpuscular Volume 74.3 fL (80-100); Monocytes Absolute Auto 700 /uL (0-900); Monocytes Percent Auto 16.3 % (3-14); Neutrophils Absolute Auto 2600 /uL (1500-7000); Neutrophils Percent Auto 64.3 % (50-75); Platelet Count 161 X10^3/uL (150-400); Red Blood Cell Count 3.47 X10^6/uL (4.0-5.2); Red Cell Distribution Width 19.9 % (11.6-14.8)
[2023-01-21 15:33] LABS: Alanine Aminotransferase 67 IU/L (<35); Albumin 3.7 g/dL (3.5-5.0); Albumin Globulin Ratio 1.1 (1.0-2.8); Alkaline Phosphatase 214 U/L (38-126); Aspartate Aminotransferase 115 IU/L (14-36); Bilirubin Total 0.6 mg/dL (0.2-1.3); Blood Urea Nitrogen 16 mg/dL (7-17); Calcium 8.6 mg/dL (8.4-10.2); Carbon Dioxide 22 mmol/L (22-32); Chloride 103 mmol/L (98-107); Estimated Glomerular Filt Rate > 60 mL/min (>60); Globulin 3.3 g/dL (1.7-4.1); Glucose 105 mg/dL (70-100); HEMOLYSIS < 15 (0-50); Potassium 3.7 mmol/L (3.4-5.1); Sodium 134 mmol/L (137-145)
--- NOTE | 2023-01-21 16:28 | ONC.SCHED ---
MRI approval. MRI has been approved, info in ARM/scanning, patient has been called and she will schedule today.
[2023-01-28 08:59] LABS: Add Manual Diff / Slide Review NO; Basophils Absolute Auto 100 /uL (0-100); Basophils Percent Auto 1.2 % (0-2); Eosinophils Absolute Auto 100 /uL (0-450); Eosinophils Percent Auto 1.8 % (2-4); Hematocrit 26.1 % (36-46); Hemoglobin 8.5 g/dL (12.0-16.0); Lymphocytes Absolute Auto 1600 /uL (1100-4500); Lymphocytes Percent Auto 37.3 % (25-40); Mean Corpuscular HGB Conc 32.6 % (30-36); Mean Corpuscular Hemoglobin 24.5 PG (26-34); Monocytes Absolute Auto 600 /uL (0-900); Monocytes Percent Auto 14.6 % (3-14); Neutrophils Absolute Auto 2000 /uL (1500-7000); Neutrophils Percent Auto 45.1 % (50-75); Platelet Count 251 X10^3/uL (150-400); Red Blood Cell Count 3.48 X10^6/uL (4.0-5.2); Red Cell Distribution Width 19.7 % (11.6-14.8); White Blood Cell Count 4.4 X10^3/uL (4.5-11.0)
[2023-01-28 09:00] VITALS: BP 107/65; PULSE 83; RESP 18; TEMP 36.5; O2SAT 100
--- NOTE | 2023-01-28 09:14 | ONC.PN ---
PN -Subjective - Date of Visit Date of visit: 01/28/23 Chief Complaint: Gastric cancer Interval history: Niecy is a very pleasant 27-year-old female diagnosed with metastatic gastric cancer and is currently undergoing treatment with FOLFOX plus nivolumab chemo immunotherapy. She is here for next cycle and is overall feeling much better. She is now eating solids and has not had a paracentesis. Pain is better controlled. - Patient Self-Reported Symptoms SR Constitution: Chills, Night Sweats SR eye issues: Vision changes SR ears, nose, mouth, throat issues: Mouth sores SR respiratory issues: Difficulty breathing SR Cardiovascular issues: Shortness of breath with activity or lying flat, Extreme swelling, Dizzy/lightheaded SR Skin issues: Skin rash or itching, Hair loss or scalp prob SR Gastrointestinal issues: Nausea SR Genitourinary issues: Burning/painful urination SR Musculoskeletal issues: Cold hands or feet SR Neuro issues: Lightheaded/dizzy SR Endocrine issues: Hot flashes Home Medications and Allergies Home Medications Medication Instructions Recorded Confirmed Type hydroxyzine pamoate 25 mg capsule 25 mg PO Q6HR PRN Itching #30 caps 11/02/22 11/13/22 Rx morphine 15 mg immediate release 30 mg PO Q4H PRN Pain, Severe 11/02/22 11/13/22 Rx tablet (7-10) #60 tabs olanzapine 10 mg disintegrating 5 mg PO DAILY #30 tabs 11/02/22 11/13/22 Rx tablet (Zyprexa Zydis) ondansetron 8 mg disintegrating 8 mg PO Q8H PRN nausea and 11/02/22 11/13/22 Rx tablet vomiting #30 tabs pantoprazole 40 mg tablet,delayed 40 mg PO DAILY #30 tabs 11/02/22 11/13/22 Rx release (Protonix) sennosides 8.6 mg-docusate sodium 2 tab-cap PO BID #60 caps 11/02/22 11/13/22 Rx 50 mg capsule (Senna Plus) hydrocortisone 1 % topical cream 1 applic topical TID PRN Itching 11/11/22 11/13/22 Rx #100 grams hydroxyzine pamoate 25 mg capsule 25 mg PO Q4HR PRN Nausea #100 caps 11/11/22 11/13/22 Rx lidocaine 5 % topical patch 1 ea topical BEDTIME #30 ea 11/11/22 11/13/22 Rx methadone 10 mg tablet 10 mg PO Q8H #21 tabs 11/11/22 11/13/22 Rx methadone 10 mg tablet 20 mg PO Q8H #42 tabs 11/11/22 11/13/22 Rx scopolamine base 1 mg over 3 days 1 patch topical Q72H #10 ea 11/11/22 11/13/22 Rx transdermal patch (Transderm-Scop) amoxicillin 875 mg-potassium 1 tab PO BID #20 tabs 11/22/22 Rx clavulanate 125 mg tablet methadone 10 mg tablet 10 mg PO TID #10 tabs 11/22/22 Rx methadone 10 mg tablet 30 mg PO TID PRN Pain (Scale Score 11/27/22 Rx 1-3) #270 tabs morphine 30 mg immediate release 30 mg PO Q6H PRN pain #120 tabs 11/27/22 Rx tablet fluorouracil 2.5 gram/50 mL 4,000 mg (80 mL) IV NOW 12/17/22 Rx intravenous solution CHEMOTHERAPY #1 device mouthwashes 30 ml mucous membrane BID mouth 12/23/22 Rx sores #30 mL prochlorperazine maleate 10 mg 10 mg PO Q6H PRN Nausea #30 tabs 01/01/23 Rx tablet (Compazine) scopolamine base 1 mg over 3 days 1 patch transdermal Q3D #10 ea 01/14/23 Rx transdermal patch ondansetron 8 mg disintegrating 8 mg PO Q8H #30 tabs 01/16/23 Rx tablet lidocaine-prilocaine 2.5 %-2.5 % 1 applic topical PRN PRN Pain At 01/28/23 Rx topical cream Injection Site #30 grams prochlorperazine maleate 10 mg 10 mg PO Q6H PRN Nausea #30 tabs 01/28/23 Rx tablet (Compazine) Allergies Allergy/AdvReac Type Severity Reaction Status Date / Time No Known Drug Allergies Allergy Verified 11/06/22 15:14 Exam Vital signs: Vital Signs Temp Pulse Resp BP Pulse Ox 01/28/23 09:00 97.7 F 83 18 107/65 100 Intake and Output 01/27/23 01/28/23 01/28/23 23:59 07:59 15:59 Other: Weight 63.9 kg Patient Weight 01/28/23 23:59 Weight 63.9 kg - Constitutional positive no acute distress, negative diaphoretic - Routine HEENT Exam Head: Present: normocephalic Eye: Present: PERRL (Conjunctivae normal) ENT: Present: mucous membranes moist - Routine Respiratory Exam Present: Clear to auscultation bilaterally. Absent: rales, respiratory distress, wheezes - Routine Cardiovascular Exam Present: RRR. Absent: murmur, irregular rhythm - Routine Abdominal Exam Present: soft. Absent: tenderness, distended, guarding - Routine Extremities Exam Present: full ROM. Absent: edema, tenderness (No Swelling) - Routine Skin Exam Present: dry, warm. Absent: lesions (No Bruising), jaundice - Routine Neurological Exam Present: alert, oriented X3. Absent: sensory deficit, motor deficit - Routine Psychiatric Exam Present: normal affect, normal thought process, cooperative. Absent: anxious, agitated Results - Labs Laboratory Last Values WBC 4.4 X10^3/uL (4.5-11.0) L 01/28/23 08:50 RBC 3.48 X10^6/uL (4.0-5.2) L 01/28/23 08:50 Hgb 8.5 g/dL (12.0-16.0) L 01/28/23 08:50 Hct 26.1 % (36-46) L 01/28/23 08:50 MCV 75.0 fL (80-100) L 01/28/23 08:50 MCH 24.5 PG (26-34) L 01/28/23 08:50 MCHC 32.6 % (30-36) 01/28/23 08:50 RDW 19.7 % (11.6-14.8) H 01/28/23 08:50 Plt Count 251 X10^3/uL (150-400) 01/28/23 08:50 Neut % (Auto) 45.1 % (50-75) L 01/28/23 08:50 Lymph % (Auto) 37.3 % (25-40) 01/28/23 08:50 [place] % (Auto) 14.6 % (3-14) H 01/28/23 08:50 Eos % (Auto) 1.8 % (2-4) L 01/28/23 08:50 Baso % (Auto) 1.2 % (0-2) 05/23/23 08:50 Neut # (Auto) 2000 /uL (1144-5424) 01/28/23 08:50 Lymph # (Auto) 1600 /uL (3730-7430) 01/28/23 08:50 [place] # (Auto) 600 /uL (0-900) 01/28/23 08:50 Eos # (Auto) 100 /uL (0-450) 01/28/23 08:50 Baso # (Auto) 100 /uL (0-100) 01/28/23 08:50 Total Counted 100 11/20/22 09:20 Seg Neutrophils % 73.0 % (38-70) H 11/20/22 09:20 Lymphocytes % (Manual) 16.0 % (25-45) L 11/20/22 09:20 Monocytes % (Manual) 10.0 % (2-11) 11/20/22 09:20 Basophils % (Manual) 1.0 % (0-1) 11/20/22 09:20 Neutrophils # (Manual) 5694 /uL (4947-4117) 11/20/22 09:20 Nucleated RBCs Cancelled 12/30/22 13:45 Hypersegmented Neuts Cancelled 12/30/22 13:45 Hypogranular Neuts Cancelled 12/30/22 13:45 Reactive Lymphocytes Cancelled 12/30/22 13:45 Smudge Cells Cancelled 12/30/22 13:45 Other Cell Type Cancelled 12/30/22 13:45 Toxic Granulation Cancelled 12/30/22 13:45 Toxic Vacuolation Cancelled 12/30/22 13:45 Dohle Bodies Cancelled 12/30/22 13:45 Trey Rods Cancelled 12/30/22 13:45 WBC Morphology Comment Cancelled 12/30/22 13:45 Platelet Estimate Cancelled 12/30/22 13:45 Clumped Platelets Cancelled 12/30/22 13:45 Plt Morphology Comment Cancelled 12/30/22 13:45 RBC Morphology See below 01/07/23 13:50 Dimorphic RBCs Cancelled 12/30/22 13:45 Polychromasia Cancelled 12/30/22 13:45 Hypochromasia Cancelled 12/30/22 13:45 Poikilocytosis Cancelled 12/30/22 13:45 Basophilic Stippling Cancelled 12/30/22 13:45 Anisocytosis 2+ H 01/07/23 13:50 Microcytosis Cancelled 12/30/22 13:45 Macrocytosis Cancelled 12/30/22 13:45 Spherocytes Cancelled 12/30/22 13:45 Pappenheimer Bodies Cancelled 12/30/22 13:45 Sickle Cells Cancelled 12/30/22 13:45 Target Cells Cancelled 12/30/22 13:45 Tear Drop Cells Cancelled 12/30/22 13:45 Ovalocytes Cancelled 12/30/22 13:45 Stomatocytes Cancelled 12/30/22 13:45 Helmet Cells Cancelled 12/30/22 13:45 [place] Bodies Cancelled 12/30/22 13:45 [place] Rings Cancelled 12/30/22 13:45 [place] Cells Cancelled 12/30/22 13:45 Acanthocytes (Spur) Cancelled 12/30/22 13:45 Rouleaux Cancelled 12/30/22 13:45 Schistocytes Cancelled 12/30/22 13:45 PT 13.0 SECONDS (10.1-12.7) H 12/30/22 13:45 INR 1.1 (0.9-1.3) 12/30/22 13:45 Sodium 134 mmol/L (137-145) L 01/21/23 15:15 Potassium 3.7 mmol/L (3.4-5.1) 01/21/23 15:15 Chloride 103 mmol/L (98-107) 01/21/23 15:15 Carbon Dioxide 22 mmol/L (22-32) 01/21/23 15:15 BUN 16 mg/dL (7-17) 01/21/23 15:15 Creatinine 0.50 mg/dL (0.52-1.04) L 01/21/23 15:15 Estimated GFR > 60 mL/min (>60) 01/21/23 15:15 BUN/Creatinine Ratio 32.0 (6-22) H 01/21/23 15:15 Glucose 105 mg/dL (70-100) H 01/21/23 15:15 Calcium 8.6 mg/dL (8.4-10.2) 01/21/23 15:15 Total Bilirubin 0.6 mg/dL (0.2-1.3) 01/21/23 15:15 AST 115 IU/L (14-36) H 01/21/23 15:15 ALT 67 IU/L (<35) H 01/21/23 15:15 Alkaline Phosphatase 214 U/L (38-126) H 01/21/23 15:15 Total Protein 7.0 g/dL (6.3-8.2) 01/21/23 15:15 Albumin 3.7 g/dL (3.5-5.0) 01/21/23 15:15 Globulin 3.3 g/dL (1.7-4.1) 01/21/23 15:15 Albumin/Globulin Ratio 1.1 (1.0-2.8) 01/21/23 15:15 Carcinoembryonic Ag 1.6 ng/mL (0.1-3.0) 11/13/22 11:50 CA 125 Antigen 77.2 U/mL (0-35) H 12/30/22 13:45 TSH 1.03 uIU/mL (0.47-4.68) 12/17/22 10:40 Urine Test Negative (Negative) 01/14/23 09:20 Blood Type B Positive 11/13/22 11:50 Antibody Screen Negative 11/13/22 11:50 Crossmatch See Detail 11/13/22 11:50 - Imaging Additional studies: Procedures Drainage of Peritoneal Cavity, Percutaneous Approach (10/16/22) Drainage of Peritoneal Cavity, Percutaneous Approach, Diagnostic (10/16/22) Excision of Esophagus, Via Natural or Artificial Opening Endoscopic, Diagnostic (10/16/22) Excision of Stomach, Via Natural or Artificial Opening Endoscopic, Diagnostic (10/16/22) Fluoroscopy of Right Subclavian Vein, Guidance (10/16/22) Insertion of Infusion Device into Right Subclavian Vein, Percutaneous Approach (10/16/22) Insertion of Infusion Device into Superior Vena Cava, Percutaneous Approach (10/16/22) Insertion of Totally Implantable Vascular Access Device into Chest Subcutaneous Tissue and Fascia, Open Approach (10/16/22) Introduction of Nutritional Substance into Peripheral Vein, Percutaneous Approach (10/16/22) Transfusion of Nonautologous Red Blood Cells into Central Vein, Percutaneous Approach (10/16/22) Assessment and Plan (1) Gastric adenocarcinoma Status: Gavin Stokes is a 27 year old female with metastatic gastric cancer on FOLFOX + Nivolumab. Overall has had an excellent response. Incresing her po intake gradually. Anticipate tapering her TPN as her caloric intake improves. HEr CT shows excellent reponse to treatment with resolution of pleural effusions and ascites although she still has omental caking. Initial presentation: Pt was hospitalized at [facility] on ongoing abdominal pain and [address] of the abdomen showed diffuse peritoneal carcinomatosis. She subsequently underwent EGD on 10/18/2022 which showed a GE junction mass with diffuse gastric wall changes pathology showed poorly differentiated adenocarcinoma. The patient also had malignant ascites and had had multiple paracentesis. Due to poor nutrition the patient was also on TPN which is continued chronically. While she was in the hospital she received her 1st dose of FOLFOX plus nivolumab on 10/30/2022 after I initially saw her at that point in time. Plan Continue FOLFOX and Nivolumab Continue TPN, will likely be able to taper now that she is eating. RTC in 2 weeks. plan to meet with genetics counselor at [facility]. 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 This is consistent with her family history and which her father also had gastric cancer in his 40s. I explained to her that the cancer risk for the CDH1 mutation is rather high and that she should have her children and her siblings tested for this as there is a potential risk that they have inherited this genetic mutation as well. I will go ahead and refer her to genetics counseling for a more thorough review of the implications of her positive test. I did explain to her that there is a 56-83% chance of gastric cancer in patients with this mutation as well as a 39-52% risk of breast cancer in patients with this mutation as well. Early surveillance is recumbent recommended for both of these malignancies in reviewed this with her along with general recommendations from her [facility] hereditary cancer test results. The patient understands this and her brother was present as well who also understands that he has a risk for this as well. The patient states that she will contact her inspecting machine adjuster as well to have her 2 daughters tested as well.
[2023-01-28 09:15] LABS: Alanine Aminotransferase 43 IU/L (<35); Albumin 3.6 g/dL (3.5-5.0); Alkaline Phosphatase 184 U/L (38-126); Aspartate Aminotransferase 58 IU/L (14-36); Bilirubin Total 0.4 mg/dL (0.2-1.3); Blood Urea Nitrogen 24 mg/dL (7-17); Calcium 8.6 mg/dL (8.4-10.2); Carbon Dioxide 23 mmol/L (22-32); Chloride 102 mmol/L (98-107); Estimated Glomerular Filt Rate > 60 mL/min (>60); Globulin 3.5 g/dL (1.7-4.1); Glucose 98 mg/dL (70-100); HEMOLYSIS < 15 (0-50); Potassium 4.5 mmol/L (3.4-5.1); Sodium 133 mmol/L (137-145); Total Protein 7.1 g/dL (6.3-8.2)
[2023-01-28 09:15] LABS: Pregnancy Test Urine Negative (Negative)
[2023-01-28] MEDS: FOSAPREPITANT 150 MG in SODIUM CHLORIDE 0.9% 150 ML 300 MG IV (09:43)
[2023-01-28] MEDS: ONDANSETRON 16 MG in SODIUM CHLORIDE 0.9% 50 ML 232 MG IV (10:03)
[2023-01-28] MEDS: NIVOLUMAB 240 MG in SODIUM CHLORIDE 0.9% (CHEMO) 100 ML 248 ML IV (10:41)
[2023-01-28] MEDS: SODIUM CHLORIDE 0.9% 100 ML 21 ML IV (10:42)
[2023-01-28] MEDS: DEXTROSE 5 % IN WATER 100 ML 21 ML IV (11:33)
[2023-01-28] MEDS: LEUCOVORIN IV (11:34)
[2023-01-28] MEDS: DEXTROSE 5% IV ×2 (11:34→11:43)
[2023-01-28] MEDS: OXALIPLATIN IV (11:43)
[2023-01-28] MEDS: ISOOSMOTIC VEHICLE IV (14:35)
[2023-01-28] MEDS: FLUOROURACIL IV (14:35)
--- NOTE | 2023-01-28 14:37 | ONC.PHA ---
Chemotherapy: S/O: 27 y.o. female, with diagnosis of metastatic gastric adenocarcinoma, is her for cycle 7 [id number] and Nivolumab chemotherapy: Nivolumab 240mg, Oxaliplatin 85mg/m? (150mg), Leucovorin 400mg/m? (700mg), and 5FU bolus 400mg/m? (690mg), cycle 14 days. Today Wt = 63.9 kg, BSA = 1.67 m? A/P: Reviewed chemotherapy order: Oxaliplatin, Leucovorin and 5-FU doses are calculated using actual BW. Reviewed chemotherapy dose: Nivolumab, oxaliplatin, leucovorin and 5-FU doses are appropriate. Reviewed 01/28/2023labs: all pertinent labs are appropriate, except AST/ALT/alkaline phos = 58 (1.6x UNL)/43 (1.3x UNL)/184 (1.5x UNL) - no dose adjustment recommend. Last TSH (12/17/2022) = 1.03 (WNL). Today urine test is negative. Reviewed MD today note, continue FOLFOX and Nivolumab. Continue TPN,, will likely be able to taper now that patient is eating. Allergies Allergy/AdvReac Type Severity Reaction Status Date / Time No Known Drug Allergies Allergy Verified 11/06/22 15:14 Diagnosis Malignant neoplasm of cardia 01/28/23 Malignant neoplasm of stomach, unspecified 01/28/23 Secondary malignant neoplasm of retroperitoneum and peritoneum 01/28/23 Malignant ascites 01/28/23 Vital Signs Temperature 97.7 F 01/28/23 09:00 Pulse Rate 83 01/28/23 09:00 Respiratory Rate 18 01/28/23 09:00 Blood Pressure 107/65 01/28/23 09:00 Pulse Oximetry 100 01/28/23 09:00 Weight 63.9 kg 01/28/23 08:55 Laboratory WBC 4.4 X10^3/uL (4.5-11.0) L 01/28/23 08:50 RBC 3.48 X10^6/uL (4.0-5.2) L 01/28/23 08:50 Hgb 8.5 g/dL (12.0-16.0) L 01/28/23 08:50 Hct 26.1 % (36-46) L 01/28/23 08:50 Plt Count 251 X10^3/uL (150-400) 01/28/23 08:50 Neut # (Auto) 2000 /uL (2105-2439) 01/28/23 08:50 Neutrophils # (Manual) 5694 /uL (6938-4218) 11/20/22 09:20 Creatinine 0.48 mg/dL (0.52-1.04) L 01/28/23 08:50 Estimated GFR > 60 mL/min (>60) 01/28/23 08:50 Calcium 8.6 mg/dL (8.4-10.2) 01/28/23 08:50 Total Bilirubin 0.4 mg/dL (0.2-1.3) 01/28/23 08:50 AST 58 IU/L (14-36) H 01/28/23 08:50 ALT 43 IU/L (<35) H 01/28/23 08:50 Alkaline Phosphatase 184 U/L (38-126) H 01/28/23 08:50
[2023-01-29] MEDS: ALTEPLASE 2 MG/2 ML VIAL IV (12:57)
--- NOTE | 2023-01-29 13:07 | PC.NURSE ---
Addendum entered by Ricarda Conteh R.N. 01/29/23 14:48: Able to establish blood return. CADD pump dose confirmed with Ilda Ramos RN. Connected pump to pt, infusing without issue. Pt departed. Original Note: IV ACCESS: Unable to establish blood return from port. New needle placed, flushes easily, ot denies discomfort, however still unable to confirm blood return. Repositioned pt, deep breathing encouraged, cough, elevated RUE without result. TPA ordered and given.
[2023-01-31 12:00] VITALS: BP 110/59; PULSE 99; RESP 16; TEMP 35.5; O2SAT 100
[2023-01-31] MEDS: SODIUM CHLORIDE 0.9% 1,000 ML 1000 ML IV (12:20)
--- NOTE | 2023-01-31 13:27 | PC.NURSE ---
5fu per CADD pump completed, casette empty, VS stable, patient nauseus, fluids administered after pump disconnected.
--- NOTE | 2023-01-31 13:29 | PC.NURSE ---
Nauseau: patient reports nausea despite taking compazine and zofran alternating as prescribed. She is drinking fairly well, stried 1 liter NS per NV protokoll. Patient reported feeling somewhat better following infusion. She was instructed to call oncologist diamond powder technician if nauseau still not improved tomorrow.
[2023-02-05 10:31] LABS: Add Manual Diff / Slide Review NO; Basophils Absolute Auto 0 /uL (0-100); Basophils Percent Auto 0.5 % (0-2); Eosinophils Absolute Auto 100 /uL (0-450); Eosinophils Percent Auto 1.9 % (2-4); Hematocrit 28.3 % (36-46); Hemoglobin 9.3 g/dL (12.0-16.0); Lymphocytes Absolute Auto 1500 /uL (1100-4500); Lymphocytes Percent Auto 32.3 % (25-40); Mean Corpuscular HGB Conc 32.8 % (30-36); Mean Corpuscular Volume 73.2 fL (80-100); Monocytes Absolute Auto 500 /uL (0-900); Monocytes Percent Auto 10.3 % (3-14); Neutrophils Absolute Auto 2600 /uL (1500-7000); Platelet Count 298 X10^3/uL (150-400); Red Blood Cell Count 3.86 X10^6/uL (4.0-5.2); White Blood Cell Count 4.7 X10^3/uL (4.5-11.0)
[2023-02-05 10:47] LABS: Alanine Aminotransferase 77 IU/L (<35); Albumin 3.8 g/dL (3.5-5.0); Albumin Globulin Ratio 1.1 (1.0-2.8); Alkaline Phosphatase 191 U/L (38-126); Aspartate Aminotransferase 84 IU/L (14-36); BUN Creatinine Ratio 47.9 (6-22); Bilirubin Total 0.4 mg/dL (0.2-1.3); Blood Urea Nitrogen 23 mg/dL (7-17); Calcium 8.9 mg/dL (8.4-10.2); Carbon Dioxide 25 mmol/L (22-32); Chloride 101 mmol/L (98-107); Estimated Glomerular Filt Rate > 60 mL/min (>60); Globulin 3.4 g/dL (1.7-4.1); Glucose 113 mg/dL (70-100); HEMOLYSIS < 15 (0-50); Potassium 4.3 mmol/L (3.4-5.1); Sodium 132 mmol/L (137-145); Total Protein 7.2 g/dL (6.3-8.2)
[2023-02-11 09:06] VITALS: BP 103/61; PULSE 81; RESP 18; TEMP 36.6; O2SAT 100
[2023-02-11 09:06] LABS: Add Manual Diff / Slide Review NO; Basophils Absolute Auto 0 /uL (0-100); Basophils Percent Auto 0.7 % (0-2); Eosinophils Absolute Auto 100 /uL (0-450); Eosinophils Percent Auto 2.3 % (2-4); Hematocrit 26.1 % (36-46); Hemoglobin 8.5 g/dL (12.0-16.0); Lymphocytes Absolute Auto 1700 /uL (1100-4500); Mean Corpuscular HGB Conc 32.4 % (30-36); Mean Corpuscular Hemoglobin 24.2 PG (26-34); Mean Corpuscular Volume 74.6 fL (80-100); Monocytes Absolute Auto 600 /uL (0-900); Monocytes Percent Auto 12.5 % (3-14); Neutrophils Absolute Auto 2200 /uL (1500-7000); Neutrophils Percent Auto 47.5 % (50-75); Platelet Count 158 X10^3/uL (150-400); Red Blood Cell Count 3.49 X10^6/uL (4.0-5.2); Red Cell Distribution Width 18.7 % (11.6-14.8); White Blood Cell Count 4.6 X10^3/uL (4.5-11.0)
--- NOTE | 2023-02-11 09:17 | ONC.PN ---
PN -Subjective - Date of Visit Date of visit: 02/11/23 Chief Complaint: Gastric cancer Interval history: Niecy is a very pleasant 27-year-old female diagnosed with metastatic gastric cancer and is currently undergoing treatment with FOLFOX plus nivolumab chemo immunotherapy. She is here for next cycle and is overall feeling much better. She is now eating solids and has not had a paracentesis. Pain is better controlled and she continues on methasone taper - Patient Self-Reported Symptoms SR Constitution: Chills, Night Sweats SR eye issues: Vision changes SR ears, nose, mouth, throat issues: Mouth sores SR respiratory issues: Difficulty breathing SR Cardiovascular issues: Dizzy/lightheaded SR Skin issues: Skin rash or itching, Hair loss or scalp prob SR Gastrointestinal issues: Poor or no appetite, Nausea, Vomiting SR Genitourinary issues: Burning/painful urination SR Musculoskeletal issues: Cold hands or feet SR Neuro issues: Headache, Tremors or shaking SR Endocrine issues: Hot flashes Home Medications and Allergies Home Medications Medication Instructions Recorded Confirmed Type hydroxyzine pamoate 25 mg capsule 25 mg PO Q6HR PRN Itching #30 caps 11/02/22 11/13/22 Rx morphine 15 mg immediate release 30 mg PO Q4H PRN Pain, Severe 11/02/22 11/13/22 Rx tablet (7-10) #60 tabs olanzapine 10 mg disintegrating 5 mg PO DAILY #30 tabs 11/02/22 11/13/22 Rx tablet (Zyprexa Zydis) ondansetron 8 mg disintegrating 8 mg PO Q8H PRN nausea and 11/02/22 11/13/22 Rx tablet vomiting #30 tabs pantoprazole 40 mg tablet,delayed 40 mg PO DAILY #30 tabs 11/02/22 11/13/22 Rx release (Protonix) sennosides 8.6 mg-docusate sodium 2 tab-cap PO BID #60 caps 11/02/22 11/13/22 Rx 50 mg capsule (Senna Plus) hydrocortisone 1 % topical cream 1 applic topical TID PRN Itching 11/11/22 11/13/22 Rx #100 grams hydroxyzine pamoate 25 mg capsule 25 mg PO Q4HR PRN Nausea #100 caps 11/11/22 11/13/22 Rx lidocaine 5 % topical patch 1 ea topical BEDTIME #30 ea 11/11/22 11/13/22 Rx methadone 10 mg tablet 10 mg PO Q8H #21 tabs 11/11/22 11/13/22 Rx methadone 10 mg tablet 20 mg PO Q8H #42 tabs 11/11/22 11/13/22 Rx scopolamine base 1 mg over 3 days 1 patch topical Q72H #10 ea 11/11/22 11/13/22 Rx transdermal patch (Transderm-Scop) amoxicillin 875 mg-potassium 1 tab PO BID #20 tabs 11/22/22 Rx clavulanate 125 mg tablet methadone 10 mg tablet 10 mg PO TID #10 tabs 11/22/22 Rx methadone 10 mg tablet 30 mg PO TID PRN Pain (Scale Score 11/27/22 Rx 1-3) #270 tabs morphine 30 mg immediate release 30 mg PO Q6H PRN pain #120 tabs 11/27/22 Rx tablet fluorouracil 2.5 gram/50 mL 4,000 mg (80 mL) IV NOW 12/17/22 Rx intravenous solution CHEMOTHERAPY #1 device mouthwashes 30 ml mucous membrane BID mouth 12/23/22 Rx sores #30 mL prochlorperazine maleate 10 mg 10 mg PO Q6H PRN Nausea #30 tabs 01/01/23 Rx tablet (Compazine) scopolamine base 1 mg over 3 days 1 patch transdermal Q3D #10 ea 01/14/23 Rx transdermal patch ondansetron 8 mg disintegrating 8 mg PO Q8H #30 tabs 01/16/23 Rx tablet lidocaine-prilocaine 2.5 %-2.5 % 1 applic topical PRN PRN Pain At 01/28/23 Rx topical cream Injection Site #30 grams prochlorperazine maleate 10 mg 10 mg PO Q6H PRN Nausea #30 tabs 01/28/23 Rx tablet (Compazine) Allergies Allergy/AdvReac Type Severity Reaction Status Date / Time No Known Drug Allergies Allergy Verified 11/06/22 15:14 Exam Vital signs: Vital Signs Temp Pulse Resp BP Pulse Ox 02/11/23 09:06 98 F 81 18 103/61 100 Intake and Output 02/10/23 02/11/23 02/11/23 23:59 07:59 15:59 Other: Weight 64 kg Patient Weight 02/11/23 23:59 Weight 64 kg - Constitutional positive no acute distress, negative diaphoretic - Routine HEENT Exam Head: Present: normocephalic Eye: Present: PERRL (Conjunctivae normal) ENT: Present: mucous membranes moist - Routine Respiratory Exam Present: Clear to auscultation bilaterally. Absent: rales, respiratory distress, wheezes - Routine Cardiovascular Exam Present: RRR. Absent: murmur, irregular rhythm - Routine Abdominal Exam Present: soft. Absent: tenderness, distended, guarding - Routine Extremities Exam Present: full ROM. Absent: edema, tenderness (No Swelling) - Routine Skin Exam Present: dry, warm. Absent: lesions (No Bruising), jaundice - Routine Neurological Exam Present: alert, oriented X3. Absent: sensory deficit, motor deficit - Routine Psychiatric Exam Present: normal affect, normal thought process, cooperative. Absent: anxious, agitated Results - Labs Laboratory Last Values WBC 4.6 X10^3/uL (4.5-11.0) 02/11/23 08:55 RBC 3.49 X10^6/uL (4.0-5.2) L 02/11/23 08:55 Hgb 8.5 g/dL (12.0-16.0) L 02/11/23 08:55 Hct 26.1 % (36-46) L 02/11/23 08:55 MCV 74.6 fL (80-100) L 02/11/23 08:55 MCH 24.2 PG (26-34) L 02/11/23 08:55 MCHC 32.4 % (30-36) 02/11/23 08:55 RDW 18.7 % (11.6-14.8) H 02/11/23 08:55 Plt Count 158 X10^3/uL (150-400) 02/11/23 08:55 Neut % (Auto) 47.5 % (50-75) L 02/11/23 08:55 Lymph % (Auto) 37.0 % (25-40) 02/11/23 08:55 [place] % (Auto) 12.5 % (3-14) 02/11/23 08:55 Eos % (Auto) 2.3 % (2-4) 02/11/23 08:55 Baso % (Auto) 0.7 % (0-2) 02/11/23 08:55 Neut # (Auto) 2200 /uL (3659-8103) 02/11/23 08:55 Lymph # (Auto) 1700 /uL (8908-7015) 02/11/23 08:55 [place] # (Auto) 600 /uL (0-900) 02/11/23 08:55 Eos # (Auto) 100 /uL (0-450) 02/11/23 08:55 Baso # (Auto) 0 /uL (0-100) 02/11/23 08:55 Total Counted 100 11/20/22 09:20 Seg Neutrophils % 73.0 % (38-70) H 11/20/22 09:20 Lymphocytes % (Manual) 16.0 % (25-45) L 11/20/22 09:20 Monocytes % (Manual) 10.0 % (2-11) 11/20/22 09:20 Basophils % (Manual) 1.0 % (0-1) 11/20/22 09:20 Neutrophils # (Manual) 5694 /uL ([id number]) 11/20/22 09:20 Nucleated RBCs Cancelled 12/30/22 13:45 Hypersegmented Neuts Cancelled 12/30/22 13:45 Hypogranular Neuts Cancelled 12/30/22 13:45 Reactive Lymphocytes Cancelled 12/30/22 13:45 Smudge Cells Cancelled 12/30/22 13:45 Other Cell Type Cancelled 12/30/22 13:45 Toxic Granulation Cancelled 12/30/22 13:45 Toxic Vacuolation Cancelled 12/30/22 13:45 Dohle Bodies Cancelled 12/30/22 13:45 Trey Rods Cancelled 12/30/22 13:45 WBC Morphology Comment Cancelled 12/30/22 13:45 Platelet Estimate Cancelled 12/30/22 13:45 Clumped Platelets Cancelled 12/30/22 13:45 Plt Morphology Comment Cancelled 12/30/22 13:45 RBC Morphology See below 01/07/23 13:50 Dimorphic RBCs Cancelled 12/30/22 13:45 Polychromasia Cancelled 12/30/22 13:45 Hypochromasia Cancelled 12/30/22 13:45 Poikilocytosis Cancelled 12/30/22 13:45 Basophilic Stippling Cancelled 12/30/22 13:45 Anisocytosis 2+ H 01/07/23 13:50 Microcytosis Cancelled 12/30/22 13:45 Macrocytosis Cancelled 12/30/22 13:45 Spherocytes Cancelled 12/30/22 13:45 Pappenheimer Bodies Cancelled 12/30/22 13:45 Sickle Cells Cancelled 12/30/22 13:45 Target Cells Cancelled 12/30/22 13:45 Tear Drop Cells Cancelled 12/30/22 13:45 Ovalocytes Cancelled 12/30/22 13:45 Stomatocytes Cancelled 12/30/22 13:45 Helmet Cells Cancelled 12/30/22 13:45 Sood-Eaton Bodies Cancelled 12/30/22 13:45 Huntington Rings Cancelled 12/30/22 13:45 Lerna Cells Cancelled 12/30/22 13:45 Acanthocytes (Spur) Cancelled 12/30/22 13:45 Rouleaux Cancelled 12/30/22 13:45 Schistocytes Cancelled 12/30/22 13:45 PT 13.0 SECONDS (10.1-12.7) H 12/30/22 13:45 INR 1.1 (0.9-1.3) 12/30/22 13:45 Sodium 132 mmol/L (137-145) L 02/05/23 10:25 Potassium 4.3 mmol/L (3.4-5.1) 02/05/23 10:25 Chloride 101 mmol/L (98-107) 02/05/23 10:25 Carbon Dioxide 25 mmol/L (22-32) 02/05/23 10:25 BUN 23 mg/dL (7-17) H 02/05/23 10:25 Creatinine 0.48 mg/dL (0.52-1.04) L 02/05/23 10:25 Estimated GFR > 60 mL/min (>60) 02/05/23 10:25 BUN/Creatinine Ratio 47.9 (6-22) H 02/05/23 10:25 Glucose 113 mg/dL (70-100) H 02/05/23 10:25 Calcium 8.9 mg/dL (8.4-10.2) 02/05/23 10:25 Total Bilirubin 0.4 mg/dL (0.2-1.3) 02/05/23 10:25 AST 84 IU/L (14-36) H 02/05/23 10:25 ALT 77 IU/L (<35) H 02/05/23 10:25 Alkaline Phosphatase 191 U/L (38-126) H 02/05/23 10:25 Total Protein 7.2 g/dL (6.3-8.2) 02/05/23 10:25 Albumin 3.8 g/dL (3.5-5.0) 02/05/23 10:25 Globulin 3.4 g/dL (1.7-4.1) 02/05/23 10:25 Albumin/Globulin Ratio 1.1 (1.0-2.8) 02/05/23 10:25 Carcinoembryonic Ag 1.6 ng/mL (0.1-3.0) 11/13/22 11:50 CA 125 Antigen 77.2 U/mL (0-35) H 12/30/22 13:45 TSH 1.03 uIU/mL (0.47-4.68) 12/17/22 10:40 Urine Test Negative (Negative) 01/28/23 09:00 Blood Type B Positive 11/13/22 11:50 Antibody Screen Negative 11/13/22 11:50 Crossmatch See Detail 11/13/22 11:50 - Imaging Additional studies: Procedures Drainage of Peritoneal Cavity, Percutaneous Approach (10/16/22) Drainage of Peritoneal Cavity, Percutaneous Approach, Diagnostic (10/16/22) Excision of Esophagus, Via Natural or Artificial Opening Endoscopic, Diagnostic (10/16/22) Excision of Stomach, Via Natural or Artificial Opening Endoscopic, Diagnostic (10/16/22) Fluoroscopy of Right Subclavian Vein, Guidance (10/16/22) Insertion of Infusion Device into Right Subclavian Vein, Percutaneous Approach (10/16/22) Insertion of Infusion Device into Superior Vena Cava, Percutaneous Approach (10/16/22) Insertion of Totally Implantable Vascular Access Device into Chest Subcutaneous Tissue and Fascia, Open Approach (10/16/22) Introduction of Nutritional Substance into Peripheral Vein, Percutaneous Approach (10/16/22) Transfusion of Nonautologous Red Blood Cells into Central Vein, Percutaneous Approach (10/16/22) Assessment and Plan (1) Gastric adenocarcinoma Status: Gavin Stokes is a 27 year old female with metastatic gastric cancer on FOLFOX + Nivolumab. Overall has had an excellent response. Incresing her po intake gradually. Anticipate tapering her TPN as her caloric intake improves. Her CT shows excellent reponse to treatment with resolution of pleural effusions and ascites although she still has omental caking. Plan to contiue current regimen with continued tolerance and improvement. Initial presentation: Pt was hospitalized at [facility] on ongoing abdominal pain and [address] of the abdomen showed diffuse peritoneal carcinomatosis. She subsequently underwent EGD on 10/18/2022 which showed a GE junction mass with diffuse gastric wall changes pathology showed poorly differentiated adenocarcinoma. The patient also had malignant ascites and had had multiple paracentesis. Due to poor nutrition the patient was also on TPN which is continued chronically. While she was in the hospital she received her 1st dose of FOLFOX plus nivolumab on 10/30/2022 after I initially saw her at that point in time. Plan Continue FOLFOX and Nivolumab Continue TPN, will likely be able to taper now that she is eating. RTC in 2 weeks. plan to meet with genetics counselor at [facility]. 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 This is consistent with her family history and which her father also had gastric cancer in his 40s. I explained to her that the cancer risk for the CDH1 mutation is rather high and that she should have her children and her siblings tested for this as there is a potential risk that they have inherited this genetic mutation as well. I will go ahead and refer her to genetics counseling for a more thorough review of the implications of her positive test. I did explain to her that there is a 56-83% chance of gastric cancer in patients with this mutation as well as a 39-52% risk of breast cancer in patients with this mutation as well. Early surveillance is recumbent recommended for both of these malignancies in reviewed this with her along with general recommendations from her [facility] hereditary cancer test results. The patient understands this and her brother was present as well who also understands that he has a risk for this as well. The patient states that she will contact her tank processor as well to have her 2 daughters tested as well.
[2023-02-11 09:19] LABS: Alanine Aminotransferase 77 IU/L (<35); Albumin 3.6 g/dL (3.5-5.0); Albumin Globulin Ratio 1.1 (1.0-2.8); Alkaline Phosphatase 192 U/L (38-126); Aspartate Aminotransferase 79 IU/L (14-36); Bilirubin Total 0.4 mg/dL (0.2-1.3); Blood Urea Nitrogen 24 mg/dL (7-17); Calcium 8.6 mg/dL (8.4-10.2); Carbon Dioxide 25 mmol/L (22-32); Chloride 103 mmol/L (98-107); Estimated Glomerular Filt Rate > 60 mL/min (>60); Globulin 3.2 g/dL (1.7-4.1); Glucose 95 mg/dL (70-100); HEMOLYSIS < 15 (0-50); Potassium 4.5 mmol/L (3.4-5.1); Sodium 134 mmol/L (137-145); Total Protein 6.8 g/dL (6.3-8.2)
[2023-02-11 10:00] LABS: Pregnancy Test Urine Negative (Negative)
--- NOTE | 2023-02-11 10:20 | PC.NURSE ---
Addendum entered by Felicita Polo R.N. 02/11/23 16:28: Emend added to regimen today due to nausea issues Addendum entered by Felicita Polo R.N. 02/11/23 16:15: Dr Collier declined adding lorazepam as she is on other potentially sedating meds. Reviewed regimen for nausea.She has been using Olanzipine but will start dosing the night before next appt for chemo and continue QD x 3-5 days. Gets benefit from Zofran and will dose routinely in post chemo 3-5 days. If using Compazine she will try only at HS. Original Note: Niecy has generally been feeling better less nausea. When connecting her to IVF she gagged but did not vomit. Reports the same since the morning. Discussed the likelihood of her experiencing anticipatory nausea. Does not have lorazepam at home but will request a small fill for her to take the am of and/or night before chemotherapy appointments. She has 4 more cycles after this cycle.
[2023-02-11] MEDS: FOSAPREPITANT 150 MG in SODIUM CHLORIDE 0.9% 150 ML 300 MG IV (10:35)
[2023-02-11] MEDS: SODIUM CHLORIDE 0.9% 100 ML 21 ML IV (11:06)
[2023-02-11] MEDS: ONDANSETRON 16 MG in SODIUM CHLORIDE 0.9% 50 ML 232 MG IV (11:07)
[2023-02-11] MEDS: NIVOLUMAB 240 MG in SODIUM CHLORIDE 0.9% (CHEMO) 100 ML 248 ML IV (11:41)
[2023-02-11] MEDS: DEXTROSE 5 % IN WATER 100 ML 21 ML IV (12:31)
[2023-02-11] MEDS: LEUCOVORIN IV (12:32)
[2023-02-11] MEDS: OXALIPLATIN IV (12:32)
[2023-02-11] MEDS: DEXTROSE 5% IV ×2 (12:32)
--- NOTE | 2023-02-11 12:32 | ONC.PHA ---
Chemotherapy: S/O: 27 y.o. female, with diagnosis of metastatic gastric adenocarcinoma, is her for cycle 8 [id number] and Nivolumab chemotherapy: Nivolumab 240mg, Oxaliplatin 85mg/m? (150mg), Leucovorin 400mg/m? (700mg), and 5FU bolus 400mg/m? (690mg), cycle 14 days. Today Wt = 64 kg, BSA = 1.67 m? A/P: Reviewed chemotherapy order: Oxaliplatin, Leucovorin and 5-FU doses are calculated using actual BW. Reviewed chemotherapy dose: Nivolumab, oxaliplatin, leucovorin and 5-FU doses are appropriate. Reviewed 01/28/2023labs: all pertinent labs are appropriate, except AST/ALT/alkaline phos = 79 (2.2x UNL)/77 (2.2x UNL)/192 (1.5x UNL) - no dose adjustment recommend. Last TSH (12/17/2022) = 1.03 (WNL). Today urine test is negative. Reviewed MD today note, continue FOLFOX and Nivolumab. Continue TPN,, will likely be able to taper now that patient is eating. Allergies Allergy/AdvReac Type Severity Reaction Status Date / Time No Known Drug Allergies Allergy Verified 11/06/22 15:14 Diagnosis Malignant neoplasm of cardia 02/11/23 Malignant neoplasm of stomach, unspecified 02/11/23 Secondary malignant neoplasm of retroperitoneum and peritoneum 02/11/23 Malignant ascites 02/11/23 Vital Signs Temperature 98 F 02/11/23 09:06 Pulse Rate 81 02/11/23 09:06 Respiratory Rate 18 02/11/23 09:06 Blood Pressure 103/61 02/11/23 09:06 Pulse Oximetry 100 02/11/23 09:06 Weight 64 kg 02/11/23 09:06 Laboratory WBC 4.6 X10^3/uL (4.5-11.0) 02/11/23 08:55 RBC 3.49 X10^6/uL (4.0-5.2) L 02/11/23 08:55 Hgb 8.5 g/dL (12.0-16.0) L 02/11/23 08:55 Hct 26.1 % (36-46) L 02/11/23 08:55 Plt Count 158 X10^3/uL (150-400) 02/11/23 08:55 Neut # (Auto) 2200 /uL ([id number]) 02/11/23 08:55 Neutrophils # (Manual) 5694 /uL ([id number]) 11/20/22 09:20 Creatinine 0.49 mg/dL (0.52-1.04) L 02/11/23 08:55 Estimated GFR > 60 mL/min (>60) 02/11/23 08:55 Calcium 8.6 mg/dL (8.4-10.2) 02/11/23 08:55 Total Bilirubin 0.4 mg/dL (0.2-1.3) 02/11/23 08:55 AST 79 IU/L (14-36) H 02/11/23 08:55 ALT 77 IU/L (<35) H 02/11/23 08:55 Alkaline Phosphatase 192 U/L (38-126) H 02/11/23 08:55
[2023-02-11] MEDS: ACETAMINOPHEN 325 MG TABLET 650 MG PO (14:40)
[2023-02-11] MEDS: FLUOROURACIL IV (15:08)
[2023-02-11] MEDS: ISOOSMOTIC VEHICLE IV (15:08)
--- NOTE | 2023-02-11 16:29 | PC.NURSE ---
5fu pump dose checked w/ S.John ABDI. Connected to port and secured with cap, [employer] and coban. Battery required charging and was almost fully charged at the time she left. Pt aware to charge pump fully once home. To RTC on for disconnect
[2023-02-13 15:03] VITALS: BP 97/56; PULSE 79; RESP 16; TEMP 36.6; O2SAT 100
--- NOTE | 2023-02-13 15:09 | PC.NURSE ---
PUMP DISCONNECT Verified infusion of 5-FU complete. VSS. Pump de-accessed per protocol, + blood return. Pt reports This is the best I've felt after treatment. I'm only a little bit nauseous.
--- NOTE | 2023-02-13 16:06 | PC.NURSE ---
METHADONE REFILL REQUESTED BY PATIENT. ASSESSMENT OF PAIN SITUATION WAS DONE BY THIS NURSE OVER THE TELEPHONE WITH THE PATIENT. SHE STATED THAT RECENTLY SHE HAS ONLY NEEDED TO TAKE A ONE TIME 30MG DOSE OF METHADONE EVERY AM WHEN SHE FEELS ABDOMINAL PAIN LEVEL 5. SHE REPORTS THAT THIS ONE DOSE BRINGS HER PAIN LEVEL DOWN TO A 1 FOR THE REST OF THE DAY AND THIS IS TOLERABLE FOR HER. SHE STATES THAT SHE IS RARELY STILL USING MORPHINE. THE LAST TIME WAS ABOUT TWO WEEKS AGO WHEN SHE EXPERIENCED MORE INTENSIVE PAIN. REQUEST MADE WITH THIS NOTE TO DR LIRA TO REFILL THE METHADONE RX.
[2023-02-18 15:07] LABS: Basophils Absolute Auto 0 /uL (0-100); Basophils Percent Auto 0.5 % (0-2); Eosinophils Absolute Auto 200 /uL (0-450); Eosinophils Percent Auto 5.8 % (2-4); Hematocrit 26.5 % (36-46); Hemoglobin 8.7 g/dL (12.0-16.0); Lymphocytes Absolute Auto 1600 /uL (1100-4500); Lymphocytes Percent Auto 36.9 % (25-40); Mean Corpuscular HGB Conc 32.6 % (30-36); Mean Corpuscular Hemoglobin 23.9 PG (26-34); Mean Corpuscular Volume 73.1 fL (80-100); Monocytes Absolute Auto 200 /uL (0-900); Monocytes Percent Auto 5.7 % (3-14); Neutrophils Absolute Auto 2200 /uL (1500-7000); Neutrophils Percent Auto 51.1 % (50-75); Platelet Count 188 X10^3/uL (150-400); Red Blood Cell Count 3.63 X10^6/uL (4.0-5.2); Red Cell Distribution Width 17.9 % (11.6-14.8); White Blood Cell Count 4.2 X10^3/uL (4.5-11.0)
[2023-02-18 15:09] LABS: Add Manual Diff / Slide Review SLIDE REVIEW
[2023-02-18 15:40] LABS: Alanine Aminotransferase 132 IU/L (<35); Albumin 4.1 g/dL (3.5-5.0); Albumin Globulin Ratio 1.2 (1.0-2.8); Alkaline Phosphatase 284 U/L (38-126); Aspartate Aminotransferase 134 IU/L (14-36); BUN Creatinine Ratio 39.6 (6-22); Bilirubin Total 0.3 mg/dL (0.2-1.3); Blood Urea Nitrogen 21 mg/dL (7-17); Calcium 9.1 mg/dL (8.4-10.2); Carbon Dioxide 23 mmol/L (22-32); Chloride 101 mmol/L (98-107); Estimated Glomerular Filt Rate > 60 mL/min (>60); Globulin 3.4 g/dL (1.7-4.1); Glucose 105 mg/dL (70-100); HEMOLYSIS < 15 (0-50); Potassium 3.7 mmol/L (3.4-5.1); Sodium 134 mmol/L (137-145); Total Protein 7.5 g/dL (6.3-8.2)
[2023-02-18 15:48] LABS: Anisocytosis 2+; Microcytosis 1+
--- NOTE | 2023-02-25 08:47 | ONC.PN ---
PN -Subjective - Date of Visit Date of visit: 02/26/23 Chief Complaint: Metastatic gastric cancer with extensive peritoneal carcinomatosis, HER2 negative (IHC 0) and MMR intact. Interval history: Up until now, patient has completed 8 cycles of modified FOLFOX6 with nivolumab. She presents here today for cycle 9. Today, she said she is able to eat and drink. She is currently on home TPN. She denies abdominal pain. She reports hand tingling only during chemotherapy infusion. Her weight has been fluctuating about 140-142. She has constipation. She reports no fever and no chills. But she reports some headache and dizziness that are better now. Oncology HPI Niecy is a 27 year old female without significant past medical history or surgical procedures. In 07/2022, she developed abdominal pain which became progressive worse associated with nausea and vomiting over the next couple of months. She lost about 20 lbs over about 2 months. On 10/09/2022, mammogram and US breast limited showed Bilateral hypoechoic areas, 1:00 position 3 cm from nipple in the right breast, and 11:00 position 2 to 3 cm from the nipple in the left breast, are suspicious, for which ultrasound guided biopsy is recommended. On 10/16/2022, she presented to the ER [facility] and was admitted to the hospital. CT abdomen and pelvis with contrast that showed ascites, peritoneal thickening, and suspected omental caking as well as moderate gastric wall thickening. On 10/17/2022, the patient underwent us guided paracentesis with removal of 3 L of serosanguineous fluid. On 10/18/2022, Dr. Lindsey Dennis performed EGD and biopsy. Per procedure note, at the GE junction, there was what seemed like an adenomatous polyp. Significant abnormal stomach with some sort of almost diffuse process noted involving cords of the stomach with sparing of pylorus and duodenum. Several biopsies were obtained from stomach as well as esophagus. 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 On 10/23/2022, patient underwent port placement by Dr. Buenrostro. She was also started on TPN via left PICC line. On 10/30/2022, patient was started on palliative chemotherapy with modified FOLFOX6 in combination with nivolumab. On the same day, patient underwent therapeutic paracentesis with removal of 2.4 L of clear fluid. On 11/02/2022, patient was discharged from the hospital. On 11/15/2022, PET at [facility] was obtained: 1. Moderate to marked FDG uptake at the gastroesophageal junction and extending along the lesser curvature of the proximal stomach, consistent with known biopsy-proven adenocarcinoma causing narrowing at the gastroesophageal junction with dilated and patulous upstream esophagus. Mild FDG uptake elsewhere in the stomach is thought to represent inflammatory changes. 2. Peritoneal carcinomatosis with associated mild FDG uptake. 3. Multiple centrilobular nodules in both lungs, predominantly in the right middle and left lower lobe with associated low level minimal FDG uptake, likely related to aspiration. Also, an area of moderately FDG avid plate like anterior subsegmental atelectasis and additional small groundglass/subsolid nodules in the right upper lobe, likely infective/ inflammatory in etiology. 4. Moderate to large volume ascites, mild right pleural effusion and pericardial effusion. 5. As seen on previous study, there is a cluster of collapsed and thickened distal small bowel loops within the right lower quadrant with mild prominence/ dilation of small bowel loops in the left upper quadrant of abdomen. Given that fecal matter is seen within the large bowel, this appearance likely represents partial bowel obstruction. 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 Genes analyzed: APC*, TATA*, AXIN2, BARD1, BMPR1A, BRCA1, BRCA2, BRIP1, CDH1, CDK4, CDKN2A (p14ARF), CDKN2A ([id number]), CHEK2, CTNNA1, DICER1*, EPCAM*, GREM1*, HOXB13, KIT, MEN1*, MLH1*, MSH2*, MSH3*, MSH6*, MUTYH, NBN, NF1*, NTHL1, PALB2, PDGFRA, PMS2*, POLD1*, POLE, PTEN*, RAD50, RAD51C, RAD51D, SDHA*, SDHB, SDHC*, SDHD, SMAD4, SMARCA4, STK11, TP53, TSC1*, TSC2, VHL On 11/27/2022, she underwent second ultrasound guided biopsy with removal of 3 liters of clear liquid. On 12/03/2022, she was seen by Nellie Butt MD of [facility]. - Patient Self-Reported Symptoms SR Constitution: Chills, Night Sweats SR eye issues: Vision changes SR ears, nose, mouth, throat issues: Mouth sores SR respiratory issues: Difficulty breathing SR Cardiovascular issues: Dizzy/lightheaded SR Skin issues: Skin rash or itching, Hair loss or scalp prob SR Gastrointestinal issues: Poor or no appetite, Nausea, Vomiting SR Genitourinary issues: Burning/painful urination SR Musculoskeletal issues: Cold hands or feet SR Neuro issues: Headache, Tremors or shaking SR Endocrine issues: Hot flashes - ROS All Systems: reviewed and no additional remarkable complaints except as stated Home Medications and Allergies Home Medications Medication Instructions Recorded Confirmed Type olanzapine 10 mg disintegrating 5 mg PO DAILY #30 tabs 11/02/22 02/25/23 Rx tablet (Zyprexa Zydis) pantoprazole 40 mg tablet,delayed 40 mg PO DAILY #30 tabs 11/02/22 02/25/23 Rx release (Protonix) sennosides 8.6 mg-docusate sodium 2 tab-cap PO BID #60 caps 11/02/22 02/25/23 Rx 50 mg capsule (Senna Plus) hydrocortisone 1 % topical cream 1 applic topical TID PRN Itching 11/11/22 02/25/23 Rx #100 grams hydroxyzine pamoate 25 mg capsule 25 mg PO Q4HR PRN Nausea #100 caps 11/11/22 02/25/23 Rx lidocaine 5 % topical patch 1 ea topical BEDTIME #30 ea 11/11/22 02/25/23 Rx morphine 30 mg immediate release 30 mg PO Q6H PRN pain #120 tabs 11/27/22 02/25/23 Rx tablet fluorouracil 2.5 gram/50 mL 4,000 mg (80 mL) IV NOW 12/17/22 Rx intravenous solution CHEMOTHERAPY #1 device mouthwashes 30 ml mucous membrane BID mouth 12/23/22 02/25/23 Rx sores #30 mL scopolamine base 1 mg over 3 days 1 patch transdermal Q3D #10 ea 01/14/23 02/25/23 Rx transdermal patch lidocaine-prilocaine 2.5 %-2.5 % 1 applic topical PRN PRN Pain At 01/28/23 02/25/23 Rx topical cream Injection Site #30 grams prochlorperazine maleate 10 mg 10 mg PO Q6H PRN Nausea #30 tabs 01/28/23 02/25/23 Rx tablet (Compazine) methadone 10 mg tablet 30 mg PO TID PRN Pain (Scale Score 02/17/23 02/25/23 Rx 1-3) #120 tabs ondansetron 8 mg disintegrating 8 mg PO Q8H #30 tabs 02/20/23 02/25/23 Rx tablet scopolamine base 1 mg over 3 days 1 patch transdermal Q3D PRN Nausea 02/20/23 02/25/23 Rx transdermal patch And Vomiting #10 ea Allergies Allergy/AdvReac Type Severity Reaction Status Date / Time No Known Drug Allergies Allergy Verified 11/06/22 15:14 Exam Vital signs: 02/26/23 00:24 Laboratory Last Values WBC 3.1 X10^3/uL (4.5-11.0) L 02/25/23 08:50 RBC 3.54 X10^6/uL (4.0-5.2) L 02/25/23 08:50 Hgb 8.4 g/dL (12.0-16.0) L 02/25/23 08:50 Hct 26.0 % (36-46) L 02/25/23 08:50 MCV 73.3 fL (80-100) L 02/25/23 08:50 MCH 23.7 PG (26-34) L 02/25/23 08:50 MCHC 32.4 % (30-36) 02/25/23 08:50 RDW 18.6 % (11.6-14.8) H 02/25/23 08:50 Plt Count 221 X10^3/uL (150-400) 02/25/23 08:50 Neut % (Auto) 39.4 % (50-75) L 02/25/23 08:50 Lymph % (Auto) 41.5 % (25-40) H 02/25/23 08:50 Smyth % (Auto) 14.1 % (3-14) H 02/25/23 08:50 Eos % (Auto) 4.2 % (2-4) H 02/25/23 08:50 Baso % (Auto) 0.8 % (0-2) 02/25/23 08:50 Neut # (Auto) 1200 /uL (3018-7892) L 02/25/23 08:50 Lymph # (Auto) 1300 /uL (3754-1338) 02/25/23 08:50 Smyth # (Auto) 400 /uL (0-900) 02/25/23 08:50 Eos # (Auto) 100 /uL (0-450) 02/25/23 08:50 Baso # (Auto) 0 /uL (0-100) 02/25/23 08:50 Total Counted 100 11/20/22 09:20 Seg Neutrophils % 73.0 % (38-70) H 11/20/22 09:20 Lymphocytes % (Manual) 16.0 % (25-45) L 11/20/22 09:20 Monocytes % (Manual) 10.0 % (2-11) 11/20/22 09:20 Basophils % (Manual) 1.0 % (0-1) 11/20/22 09:20 Neutrophils # (Manual) 5694 /uL (8521-1174) 11/20/22 09:20 Nucleated RBCs Cancelled 12/30/22 13:45 Hypersegmented Neuts Cancelled 12/30/22 13:45 Hypogranular Neuts Cancelled 12/30/22 13:45 Reactive Lymphocytes Cancelled 12/30/22 13:45 Smudge Cells Cancelled 12/30/22 13:45 Other Cell Type Cancelled 12/30/22 13:45 Toxic Granulation Cancelled 12/30/22 13:45 Toxic Vacuolation Cancelled 12/30/22 13:45 Dohle Bodies Cancelled 12/30/22 13:45 Trey Rods Cancelled 12/30/22 13:45 WBC Morphology Comment Cancelled 12/30/22 13:45 Platelet Estimate Cancelled 12/30/22 13:45 Clumped Platelets Cancelled 12/30/22 13:45 Plt Morphology Comment Cancelled 12/30/22 13:45 RBC Morphology See below 02/18/23 14:55 Dimorphic RBCs Cancelled 12/30/22 13:45 Polychromasia Cancelled 12/30/22 13:45 Hypochromasia Cancelled 12/30/22 13:45 Poikilocytosis Cancelled 12/30/22 13:45 Basophilic Stippling Cancelled 12/30/22 13:45 Anisocytosis 2+ H 02/18/23 14:55 Microcytosis 1+ H 02/18/23 14:55 Macrocytosis Cancelled 12/30/22 13:45 Spherocytes Cancelled 12/30/22 13:45 Pappenheimer Bodies Cancelled 12/30/22 13:45 Sickle Cells Cancelled 12/30/22 13:45 Target Cells Cancelled 12/30/22 13:45 Tear Drop Cells Cancelled 12/30/22 13:45 Ovalocytes Cancelled 12/30/22 13:45 Stomatocytes Cancelled 12/30/22 13:45 Helmet Cells Cancelled 12/30/22 13:45 Sood-Forbes Bodies Cancelled 12/30/22 13:45 [place] Rings Cancelled 12/30/22 13:45 [place] Cells Cancelled 12/30/22 13:45 Acanthocytes (Spur) Cancelled 12/30/22 13:45 Rouleaux Cancelled 12/30/22 13:45 Schistocytes Cancelled 12/30/22 13:45 PT 13.0 SECONDS (10.1-12.7) H 12/30/22 13:45 INR 1.1 (0.9-1.3) 12/30/22 13:45 Sodium 135 mmol/L (137-145) L 02/25/23 08:50 Potassium 4.4 mmol/L (3.4-5.1) 02/25/23 08:50 Chloride 106 mmol/L (98-107) 02/25/23 08:50 Carbon Dioxide 23 mmol/L (22-32) 02/25/23 08:50 BUN 25 mg/dL (7-17) H 02/25/23 08:50 Creatinine 0.46 mg/dL (0.52-1.04) L 02/25/23 08:50 Estimated GFR > 60 mL/min (>60) 02/25/23 08:50 BUN/Creatinine Ratio 54.3 (6-22) H 02/25/23 08:50 Glucose 82 mg/dL (70-100) 02/25/23 08:50 Calcium 8.6 mg/dL (8.4-10.2) 02/25/23 08:50 Total Bilirubin 0.4 mg/dL (0.2-1.3) 02/25/23 08:50 AST 50 IU/L (14-36) H 02/25/23 08:50 ALT 55 IU/L (<35) H 02/25/23 08:50 Alkaline Phosphatase 225 U/L (38-126) H 02/25/23 08:50 Total Protein 6.9 g/dL (6.3-8.2) 02/25/23 08:50 Albumin 3.6 g/dL (3.5-5.0) 02/25/23 08:50 Globulin 3.3 g/dL (1.7-4.1) 02/25/23 08:50 Albumin/Globulin Ratio 1.1 (1.0-2.8) 02/25/23 08:50 Carcinoembryonic Ag 1.6 ng/mL (0.1-3.0) 11/13/22 11:50 CA 125 Antigen 77.2 U/mL (0-35) H 12/30/22 13:45 TSH 1.98 uIU/mL (0.47-4.68) 02/25/23 11:16 Urine Test Negative (Negative) 02/25/23 09:10 Blood Type B Positive 11/13/22 11:50 Antibody Screen Negative 11/13/22 11:50 Crossmatch See Detail 11/13/22 11:50 - Constitutional positive no acute distress, positive cooperative - Routine HEENT Exam Head: Present: normocephalic, atraumatic Eye: Present: EOMI, PERRL, normal accommodation. Absent: conjunctival icterus - Routine Neck Exam Absent: lymphadenopathy, thyromegaly - Routine Chest/Breast/Axilla Exam Axillae: Absent: lymphadenopathy - Routine Respiratory Exam Present: Clear to auscultation bilaterally. Absent: wheezes - Routine Cardiovascular Exam Present: RRR, S1, S2. Absent: murmur, gallop - Routine Abdominal Exam Present: soft. Absent: tenderness, organomegaly - Routine Extremities Exam Absent: edema - Routine Neurological Exam Present: alert, oriented X3, CN II-XII intact. Absent: sensory deficit, motor deficit Results - Labs Laboratory Last Values WBC 4.2 X10^3/uL (4.5-11.0) L 02/18/23 14:55 RBC 3.63 X10^6/uL (4.0-5.2) L 02/18/23 14:55 Hgb 8.7 g/dL (12.0-16.0) L 02/18/23 14:55 Hct 26.5 % (36-46) L 02/18/23 14:55 MCV 73.1 fL (80-100) L 02/18/23 14:55 MCH 23.9 PG (26-34) L 02/18/23 14:55 MCHC 32.6 % (30-36) 02/18/23 14:55 RDW 17.9 % (11.6-14.8) H 02/18/23 14:55 Plt Count 188 X10^3/uL (150-400) 02/18/23 14:55 Neut % (Auto) 51.1 % (50-75) 02/18/23 14:55 Lymph % (Auto) 36.9 % (25-40) 02/18/23 14:55 Smyth % (Auto) 5.7 % (3-14) 02/18/23 14:55 Eos % (Auto) 5.8 % (2-4) H 02/18/23 14:55 Baso % (Auto) 0.5 % (0-2) 02/18/23 14:55 Neut # (Auto) 2200 /uL (6150-9862) 02/18/23 14:55 Lymph # (Auto) 1600 /uL (9547-7552) 02/18/23 14:55 Smyth # (Auto) 200 /uL (0-900) 02/18/23 14:55 Eos # (Auto) 200 /uL (0-450) 02/18/23 14:55 Baso # (Auto) 0 /uL (0-100) 02/18/23 14:55 Total Counted 100 11/20/22 09:20 Seg Neutrophils % 73.0 % (38-70) H 11/20/22 09:20 Lymphocytes % (Manual) 16.0 % (25-45) L 11/20/22 09:20 Monocytes % (Manual) 10.0 % (2-11) 11/20/22 09:20 Basophils % (Manual) 1.0 % (0-1) 11/20/22 09:20 Neutrophils # (Manual) 5694 /uL (0078-2878) 11/20/22 09:20 Nucleated RBCs Cancelled 12/30/22 13:45 Hypersegmented Neuts Cancelled 12/30/22 13:45 Hypogranular Neuts Cancelled 12/30/22 13:45 Reactive Lymphocytes Cancelled 12/30/22 13:45 Smudge Cells Cancelled 12/30/22 13:45 Other Cell Type Cancelled 12/30/22 13:45 Toxic Granulation Cancelled 12/30/22 13:45 Toxic Vacuolation Cancelled 12/30/22 13:45 Dohle Bodies Cancelled 12/30/22 13:45 Trey Rods Cancelled 12/30/22 13:45 WBC Morphology Comment Cancelled 12/30/22 13:45 Platelet Estimate Cancelled 12/30/22 13:45 Clumped Platelets Cancelled 12/30/22 13:45 Plt Morphology Comment Cancelled 12/30/22 13:45 RBC Morphology See below 02/18/23 14:55 Dimorphic RBCs Cancelled 12/30/22 13:45 Polychromasia Cancelled 12/30/22 13:45 Hypochromasia Cancelled 12/30/22 13:45 Poikilocytosis Cancelled 12/30/22 13:45 Basophilic Stippling Cancelled 12/30/22 13:45 Anisocytosis 2+ H 02/18/23 14:55 Microcytosis 1+ H 02/18/23 14:55 Macrocytosis Cancelled 12/30/22 13:45 Spherocytes Cancelled 12/30/22 13:45 Pappenheimer Bodies Cancelled 12/30/22 13:45 Sickle Cells Cancelled 12/30/22 13:45 Target Cells Cancelled 12/30/22 13:45 Tear Drop Cells Cancelled 12/30/22 13:45 Ovalocytes Cancelled 12/30/22 13:45 Stomatocytes Cancelled 12/30/22 13:45 Helmet Cells Cancelled 12/30/22 13:45 Sood-Forbes Bodies Cancelled 12/30/22 13:45 [place] Rings Cancelled 12/30/22 13:45 Tereza Cells Cancelled 12/30/22 13:45 Acanthocytes (Spur) Cancelled 12/30/22 13:45 Rouleaux Cancelled 12/30/22 13:45 Schistocytes Cancelled 12/30/22 13:45 PT 13.0 SECONDS (10.1-12.7) H 12/30/22 13:45 INR 1.1 (0.9-1.3) 12/30/22 13:45 Sodium 134 mmol/L (137-145) L 02/18/23 14:55 Potassium 3.7 mmol/L (3.4-5.1) 02/18/23 14:55 Chloride 101 mmol/L (98-107) 02/18/23 14:55 Carbon Dioxide 23 mmol/L (22-32) 02/18/23 14:55 BUN 21 mg/dL (7-17) H 02/18/23 14:55 Creatinine 0.53 mg/dL (0.52-1.04) 02/18/23 14:55 Estimated GFR > 60 mL/min (>60) 02/18/23 14:55 BUN/Creatinine Ratio 39.6 (6-22) H 02/18/23 14:55 Glucose 105 mg/dL (70-100) H 02/18/23 14:55 Calcium 9.1 mg/dL (8.4-10.2) 02/18/23 14:55 Total Bilirubin 0.3 mg/dL (0.2-1.3) 02/18/23 14:55 AST 134 IU/L (14-36) H 02/18/23 14:55 ALT 132 IU/L (<35) H 02/18/23 14:55 Alkaline Phosphatase 284 U/L (38-126) H 02/18/23 14:55 Total Protein 7.5 g/dL (6.3-8.2) 02/18/23 14:55 Albumin 4.1 g/dL (3.5-5.0) 02/18/23 14:55 Globulin 3.4 g/dL (1.7-4.1) 02/18/23 14:55 Albumin/Globulin Ratio 1.2 (1.0-2.8) 02/18/23 14:55 Carcinoembryonic Ag 1.6 ng/mL (0.1-3.0) 11/13/22 11:50 CA 125 Antigen 77.2 U/mL (0-35) H 12/30/22 13:45 TSH 1.03 uIU/mL (0.47-4.68) 12/17/22 10:40 Urine Test Negative (Negative) 02/11/23 09:30 Blood Type B Positive 11/13/22 11:50 Antibody Screen Negative 11/13/22 11:50 Crossmatch See Detail 11/13/22 11:50 - Imaging Additional studies: Procedures Drainage of Peritoneal Cavity, Percutaneous Approach (10/16/22) Drainage of Peritoneal Cavity, Percutaneous Approach, Diagnostic (10/16/22) Excision of Esophagus, Via Natural or Artificial Opening Endoscopic, Diagnostic (10/16/22) Excision of Stomach, Via Natural or Artificial Opening Endoscopic, Diagnostic (10/16/22) Fluoroscopy of Right Subclavian Vein, Guidance (10/16/22) Insertion of Infusion Device into Right Subclavian Vein, Percutaneous Approach (10/16/22) Insertion of Infusion Device into Superior Vena Cava, Percutaneous Approach (10/16/22) Insertion of Totally Implantable Vascular Access Device into Chest Subcutaneous Tissue and Fascia, Open Approach (10/16/22) Introduction of Nutritional Substance into Peripheral Vein, Percutaneous Approach (10/16/22) Transfusion of Nonautologous Red Blood Cells into Central Vein, Percutaneous Approach (10/16/22) Assessment and Plan (1) Gastric adenocarcinoma Niecy Stokes is a 27 year old female who presented with abdominal pain, nausea/vomiting, weight loss, difficulty swallowing in 07/2022 and was diagnosed with diffuse gastric adenocarcinoma after EGD/biopsy on 10/18/2022. Molecular studies showed PD-L1 28-8 (OPDIVO) CPS score 5; HER2 negative (Score 0); and pMMR IHC. She has had 3 paracentesis. She is on TPN at home. 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 She was started on mFOLFOX6 + Nivolumab. Discussion: Clinically, she is making progress with improving oral intake including solids and liquids. She is likely will be able to come off TPN within the next 1-2 weeks. This is consistent with excellent response to the chemotherapy and immunotherapy. Plan Ok to proceed to mFOLFOX6 and Nivolumab Continue TPN for now RTC in 2 weeks for evaluation. 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
[2023-02-25 09:07] LABS: Add Manual Diff / Slide Review NO; Basophils Absolute Auto 0 /uL (0-100); Basophils Percent Auto 0.8 % (0-2); Eosinophils Absolute Auto 100 /uL (0-450); Eosinophils Percent Auto 4.2 % (2-4); Hemoglobin 8.4 g/dL (12.0-16.0); Lymphocytes Absolute Auto 1300 /uL (1100-4500); Lymphocytes Percent Auto 41.5 % (25-40); Mean Corpuscular HGB Conc 32.4 % (30-36); Mean Corpuscular Hemoglobin 23.7 PG (26-34); Mean Corpuscular Volume 73.3 fL (80-100); Monocytes Absolute Auto 400 /uL (0-900); Monocytes Percent Auto 14.1 % (3-14); Neutrophils Absolute Auto 1200 /uL (1500-7000); Neutrophils Percent Auto 39.4 % (50-75); Platelet Count 221 X10^3/uL (150-400); Red Blood Cell Count 3.54 X10^6/uL (4.0-5.2); Red Cell Distribution Width 18.6 % (11.6-14.8); White Blood Cell Count 3.1 X10^3/uL (4.5-11.0)
[2023-02-25 09:12] VITALS: BP 102/63; PULSE 80; RESP 18; TEMP 36.4; O2SAT 100
[2023-02-25 09:16] LABS: Alanine Aminotransferase 55 IU/L (<35); Albumin 3.6 g/dL (3.5-5.0); Albumin Globulin Ratio 1.1 (1.0-2.8); Alkaline Phosphatase 225 U/L (38-126); Aspartate Aminotransferase 50 IU/L (14-36); BUN Creatinine Ratio 54.3 (6-22); Bilirubin Total 0.4 mg/dL (0.2-1.3); Blood Urea Nitrogen 25 mg/dL (7-17); Calcium 8.6 mg/dL (8.4-10.2); Carbon Dioxide 23 mmol/L (22-32); Chloride 106 mmol/L (98-107); Estimated Glomerular Filt Rate > 60 mL/min (>60); Globulin 3.3 g/dL (1.7-4.1); Glucose 82 mg/dL (70-100); HEMOLYSIS 16 (0-50); Potassium 4.4 mmol/L (3.4-5.1); Sodium 135 mmol/L (137-145); Total Protein 6.9 g/dL (6.3-8.2)
[2023-02-25 09:23] LABS: Pregnancy Test Urine Negative (Negative)
[2023-02-25] MEDS: NIVOLUMAB 240 MG in SODIUM CHLORIDE 0.9% (CHEMO) 100 ML 248 ML IV (10:41)
--- NOTE | 2023-02-25 11:01 | ONC.SCHED ---
Scheduling: This block mason is requesting MD place orders for the patient if needed.
[2023-02-25] MEDS: FOSAPREPITANT 150 MG in SODIUM CHLORIDE 0.9% 150 ML 300 MG IV (11:31)
[2023-02-25] MEDS: ONDANSETRON 16 MG in SODIUM CHLORIDE 0.9% 50 ML 232 MG IV (11:53)
[2023-02-25 11:58] LABS: Thyroid Stimulating Hormone 1.98 uIU/mL (0.47-4.68)
[2023-02-25] MEDS: DEXTROSE 5 % IN WATER 100 ML 21 ML IV (12:18)
[2023-02-25] MEDS: OXALIPLATIN IV (12:30)
[2023-02-25] MEDS: DEXTROSE 5% IV ×2 (12:30)
[2023-02-25] MEDS: LEUCOVORIN IV (12:30)
--- NOTE | 2023-02-25 14:56 | ONC.PHA ---
Chemotherapy: S/O: 27 y.o. female, with diagnosis of metastatic gastric adenocarcinoma, is her for cycle 9 mFOLFOX6 and Nivolumab chemotherapy: Nivolumab 240mg, Oxaliplatin 85mg/m? (150mg), Leucovorin 400mg/m? (700mg), and 5FU bolus 400mg/m? (690mg), cycle 14 days. Today Wt = 65.7 kg, BSA = 1.69 m? A/P: Reviewed chemotherapy order: Oxaliplatin, Leucovorin and 5-FU doses are calculated using actual BW. Reviewed chemotherapy dose: Nivolumab, oxaliplatin, leucovorin and 5-FU doses are appropriate. Reviewed today labs: all pertinent labs are appropriate, except AST/ALT/alkaline phos = 50 1.4x UNL)/55 (1.6x UNL)/225 (1.8x UNL) - no dose adjustment recommend. Today TSH = 1.98 (WNL). Today urine test is negative. Reviewed MD today note, ok to proceed to mFOLFOX and Nivolumab. Continue TPN. Allergies Allergy/AdvReac Type Severity Reaction Status Date / Time No Known Drug Allergies Allergy Verified 11/06/22 15:14 Diagnosis Malignant neoplasm of cardia 02/25/23 Malignant neoplasm of stomach, unspecified 02/25/23 Secondary malignant neoplasm of retroperitoneum and peritoneum 02/25/23 Malignant ascites 02/25/23 Vital Signs Temperature 97.6 F 02/25/23 09:12 Pulse Rate 80 02/25/23 09:12 Respiratory Rate 18 02/25/23 09:12 Blood Pressure 102/63 02/25/23 09:12 Pulse Oximetry 100 02/25/23 09:12 Weight 65.7 kg 02/25/23 09:12 Weight 65.7 kg 02/25/23 08:55 Laboratory WBC 3.1 X10^3/uL (4.5-11.0) L 02/25/23 08:50 RBC 3.54 X10^6/uL (4.0-5.2) L 02/25/23 08:50 Hgb 8.4 g/dL (12.0-16.0) L 02/25/23 08:50 Hct 26.0 % (36-46) L 02/25/23 08:50 Plt Count 221 X10^3/uL (150-400) 02/25/23 08:50 Neut # (Auto) 1200 /uL (3097-9871) L 02/25/23 08:50 Neutrophils # (Manual) 5694 /uL (9071-7857) 11/20/22 09:20 Creatinine 0.46 mg/dL (0.52-1.04) L 02/25/23 08:50 Estimated GFR > 60 mL/min (>60) 02/25/23 08:50 Calcium 8.6 mg/dL (8.4-10.2) 02/25/23 08:50 Total Bilirubin 0.4 mg/dL (0.2-1.3) 02/25/23 08:50 AST 50 IU/L (14-36) H 02/25/23 08:50 ALT 55 IU/L (<35) H 02/25/23 08:50 Alkaline Phosphatase 225 U/L (38-126) H 02/25/23 08:50
[2023-02-25] MEDS: FLUOROURACIL IV (15:16)
[2023-02-25] MEDS: ISOOSMOTIC VEHICLE IV (15:16)
[2023-03-05 10:18] LABS: Add Manual Diff / Slide Review NO; Basophils Absolute Auto 0 /uL (0-100); Basophils Percent Auto 0.7 % (0-2); Eosinophils Absolute Auto 100 /uL (0-450); Hematocrit 25.2 % (36-46); Hemoglobin 8.3 g/dL (12.0-16.0); Lymphocytes Absolute Auto 1600 /uL (1100-4500); Lymphocytes Percent Auto 45.1 % (25-40); Mean Corpuscular HGB Conc 32.9 % (30-36); Mean Corpuscular Hemoglobin 23.9 PG (26-34); Mean Corpuscular Volume 72.7 fL (80-100); Monocytes Absolute Auto 400 /uL (0-900); Neutrophils Absolute Auto 1400 /uL (1500-7000); Neutrophils Percent Auto 40.2 % (50-75); Platelet Count 207 X10^3/uL (150-400); Red Blood Cell Count 3.47 X10^6/uL (4.0-5.2); Red Cell Distribution Width 17.8 % (11.6-14.8); White Blood Cell Count 3.6 X10^3/uL (4.5-11.0)
[2023-03-05 10:35] LABS: Alanine Aminotransferase 77 IU/L (<35); Albumin 3.7 g/dL (3.5-5.0); Albumin Globulin Ratio 1.1 (1.0-2.8); Alkaline Phosphatase 254 U/L (38-126); Aspartate Aminotransferase 64 IU/L (14-36); BUN Creatinine Ratio 43.6 (6-22); Bilirubin Total 0.4 mg/dL (0.2-1.3); Blood Urea Nitrogen 24 mg/dL (7-17); Calcium 8.7 mg/dL (8.4-10.2); Carbon Dioxide 25 mmol/L (22-32); Chloride 103 mmol/L (98-107); Estimated Glomerular Filt Rate > 60 mL/min (>60); Globulin 3.4 g/dL (1.7-4.1); Glucose 108 mg/dL (70-100); HEMOLYSIS < 15 (0-50); Potassium 4.6 mmol/L (3.4-5.1); Sodium 133 mmol/L (137-145); Total Protein 7.1 g/dL (6.3-8.2)
--- NOTE | 2023-03-06 11:11 | PC.NURSE ---
treatment: per Dr. Mario, pt will con't treatment on 03/12/23. This RN called and informed pt to plan on it. Dr. Mario will work on orders panel today to get treatment ordered. Josie and [facility] made aware.
--- NOTE | 2023-03-10 11:28 | ONC.SCHED ---
Scheduled patient for 03/12 treatment, left for her asking that she call back to confirm she can make it.
[2023-03-12] MEDS: ALTEPLASE 2 MG/2 ML VIAL IV (08:46)
[2023-03-12 08:48] LABS: Add Manual Diff / Slide Review NO; Basophils Absolute Auto 0 /uL (0-100); Basophils Percent Auto 0.8 % (0-2); Eosinophils Absolute Auto 100 /uL (0-450); Eosinophils Percent Auto 3.5 % (2-4); Hematocrit 25.2 % (36-46); Hemoglobin 8.2 g/dL (12.0-16.0); Lymphocytes Absolute Auto 1600 /uL (1100-4500); Lymphocytes Percent Auto 43.5 % (25-40); Mean Corpuscular HGB Conc 32.6 % (30-36); Mean Corpuscular Hemoglobin 23.8 PG (26-34); Mean Corpuscular Volume 73.2 fL (80-100); Monocytes Absolute Auto 600 /uL (0-900); Monocytes Percent Auto 17.4 % (3-14); Neutrophils Absolute Auto 1300 /uL (1500-7000); Neutrophils Percent Auto 34.8 % (50-75); Platelet Count 217 X10^3/uL (150-400); Red Blood Cell Count 3.44 X10^6/uL (4.0-5.2); Red Cell Distribution Width 19.2 % (11.6-14.8); White Blood Cell Count 3.6 X10^3/uL (4.5-11.0)
[2023-03-12 09:01] LABS: Alanine Aminotransferase 59 IU/L (<35); Albumin 3.8 g/dL (3.5-5.0); Albumin Globulin Ratio 1.2 (1.0-2.8); Alkaline Phosphatase 259 U/L (38-126); Aspartate Aminotransferase 63 IU/L (14-36); BUN Creatinine Ratio 55.8 (6-22); Bilirubin Total 0.5 mg/dL (0.2-1.3); Blood Urea Nitrogen 24 mg/dL (7-17); Calcium 8.8 mg/dL (8.4-10.2); Carbon Dioxide 24 mmol/L (22-32); Chloride 107 mmol/L (98-107); Estimated Glomerular Filt Rate > 60 mL/min (>60); Globulin 3.1 g/dL (1.7-4.1); Glucose 105 mg/dL (70-100); HEMOLYSIS < 15 (0-50); Potassium 4.3 mmol/L (3.4-5.1); Sodium 137 mmol/L (137-145); Total Protein 6.9 g/dL (6.3-8.2)
[2023-03-12 09:08] VITALS: BP 107/60; PULSE 93; RESP 16; TEMP 36.2; O2SAT 100
[2023-03-12 09:19] LABS: Pregnancy Test Urine Negative (Negative)
[2023-03-12 09:32] LABS: Carcinoembryonic Antigen 1.7 ng/mL (0.1-3.0)
[2023-03-12] MEDS: ONDANSETRON 16 MG in SODIUM CHLORIDE 0.9% 50 ML 232 MG IV (10:40)
[2023-03-12] MEDS: FOSAPREPITANT 150 MG in SODIUM CHLORIDE 0.9% 150 ML 300 MG IV (11:14)
[2023-03-12] MEDS: NIVOLUMAB 240 MG in SODIUM CHLORIDE 0.9% (CHEMO) 100 ML 248 ML IV (11:54)
[2023-03-12] MEDS: SODIUM CHLORIDE 0.9% 100 ML 21 ML IV (11:54)
[2023-03-12] MEDS: DEXTROSE 5 % IN WATER 100 ML 21 ML IV (12:45)
[2023-03-12] MEDS: DEXTROSE 5% IV ×2 (13:31→13:33)
[2023-03-12] MEDS: OXALIPLATIN IV (13:31)
[2023-03-12] MEDS: LEUCOVORIN IV (13:33)
--- NOTE | 2023-03-12 15:13 | ONC.PHA ---
Chemotherapy: S/O: 27 y.o. female, with diagnosis of metastatic gastric adenocarcinoma, is her for cycle 10 [id number] and Nivolumab chemotherapy: Nivolumab 240mg, Oxaliplatin 85mg/m? (150mg), Leucovorin 400mg/m? (700mg), and 5FU bolus 400mg/m? (690mg), cycle 14 days. Today Wt = 66.4 kg, BSA = 1.69 m? A/P: Reviewed chemotherapy order: Oxaliplatin, Leucovorin and 5-FU doses are calculated using actual BW. Reviewed chemotherapy dose: Nivolumab, oxaliplatin, leucovorin and 5-FU doses are appropriate. Reviewed today labs: all pertinent labs are appropriate, except AST/ALT/alkaline phos = 63 (1.8x UNL)/59 (1.7x UNL)/259 (2x UNL) - no dose adjustment recommend. Last TSH (02/25/2023) = 1.98 (WNL). Today urine test is negative. Reviewed MD 02/25/2023 note, ok to proceed to mFOLFOX and Nivolumab. Continue TPN. Allergies Allergy/AdvReac Type Severity Reaction Status Date / Time No Known Drug Allergies Allergy Verified 11/06/22 15:14 Diagnosis Malignant neoplasm of cardia 03/12/23 Secondary malignant neoplasm of retroperitoneum and peritoneum 03/12/23 Malignant ascites 03/12/23 Vital Signs Temperature 97.2 F 03/12/23 09:08 Pulse Rate 93 03/12/23 09:08 Respiratory Rate 16 03/12/23 09:08 Blood Pressure 107/60 03/12/23 09:08 Pulse Oximetry 100 03/12/23 09:08 Weight 66.4 kg 03/12/23 08:32 Laboratory WBC 3.6 X10^3/uL (4.5-11.0) L 03/12/23 08:40 RBC 3.44 X10^6/uL (4.0-5.2) L 03/12/23 08:40 Hgb 8.2 g/dL (12.0-16.0) L 03/12/23 08:40 Hct 25.2 % (36-46) L 03/12/23 08:40 Plt Count 217 X10^3/uL (150-400) 03/12/23 08:40 Neut # (Auto) 1300 /uL (4966-1613) L 03/12/23 08:40 Neutrophils # (Manual) 5694 /uL (8034-7820) 11/20/22 09:20 Creatinine 0.43 mg/dL (0.52-1.04) L 03/12/23 08:40 Estimated GFR > 60 mL/min (>60) 03/12/23 08:40 Calcium 8.8 mg/dL (8.4-10.2) 03/12/23 08:40 Total Bilirubin 0.5 mg/dL (0.2-1.3) 03/12/23 08:40 AST 63 IU/L (14-36) H 03/12/23 08:40 ALT 59 IU/L (<35) H 03/12/23 08:40 Alkaline Phosphatase 259 U/L (38-126) H 03/12/23 08:40
--- NOTE | 2023-03-12 17:17 | PC.NURSE ---
5-FU PUMP CONNECT 1700: Verified pump dosage/rate with YesikaRN. Pt has occlusive dressing covering port site, clave and equa-shied in place. Verified + blood return. Pump connected per protocol, connections wrapped with coban. Discussed with Pt to return to clinic on Friday (03/14) at 1500 for pump disconnect. Pt voiced understanding.
--- NOTE | 2023-03-13 10:17 | PC.NURSE ---
Pt call: Pt called expressing concern of reaction to infusion. Pt reports Red, itchy nose and my lips are itchy too. Pt further reports itchy legs that began last night. Pt denies SOB or any issue with airway. Pt denies any other symptom. This RN instructed pt to stop 5FU pump and come into clinic for RN evaluation as soon as possible, pt lives in [place] and informs this right she will be here right away. 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
[2023-03-13 11:11] VITALS: BP 102/50; PULSE 76; RESP 16; TEMP 36.6; O2SAT 99
[2023-03-13] MEDS: DEXAMETHASONE 10 MG/ML VIAL IV (12:30)
[2023-03-13] MEDS: diphenhydrAMINE 25 MG TABLET 50 MG PO (12:30)
--- NOTE | 2023-03-13 15:37 | PC.NURSE ---
DELAYED INFUSION REACTION -ASSESSMENT Pt called triage line this morning to report swelling of lips, cheeks, and generalized pruritus. Pt denies issues with her airway or chest pain. 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 Pt reported that the symptoms started 03/12/23 at 2000. Pt called the after hours oncology number and was instructed to use hydrocortisone cream, which she reports did not help. This RN visualized swelling of lips,cheeks, and redness around nose and mouth. Pt denied swelling of tongue. Pt stated that she was up all night itching. VSS. Lungs clear to auscultation. Pt reports occasionally she feels sharp pain in chest when taking a deep breath. Dr. Mario made aware of assessment data. Verbal orders received for one time dose of 50mg PO Benadryl and 10mg IV Dexamethasone. One hour after administration of Benadryl and Dexamethasone, Pt reported feeling much better. Swelling of lips improved, facial redness resolved. Pt denies itchiness. 5-FU pump restarted and should finish infusing 03/14/23 at 1800. [facility] notified and will de-access Pt's pump.
--- NOTE | 2023-03-17 10:15 | P.PNONC_ITS ---
PN -Subjective - Date of Visit Date of visit: 03/17/23 Chief Complaint: Metastatic gastric cancer with extensive peritoneal carcinomatosis, HER2 negative ([facility] 0) and MMR intact. Interval history: Today, she came in with her for scheduled follow up visit. She is currently on home TPN. But she said she has no problem swallowing. No odynophagia. She denies abdominal pain. She has constipation. She reports no fever and no chills. But she reports some headache and dizziness that are better now. Oncology HPI Niecy is a 27 year old female without significant past medical history or surgical procedures. In 07/2022, she developed abdominal pain which became progressive worse associated with nausea and vomiting over the next couple of months. She lost about 20 lbs over about 2 months. On 10/09/2022, mammogram and US breast limited showed Bilateral hypoechoic areas, 1:00 position 3 cm from nipple in the right breast, and 11:00 position 2 to 3 cm from the nipple in the left breast, are suspicious, for which ultrasound guided biopsy is recommended. On 10/16/2022, she presented to the ER [facility] and was admitted to the hospital. CT abdomen and pelvis with contrast that showed ascites, peritoneal thickening, and suspected omental caking as well as moderate gastric wall thickening. On 10/17/2022, the patient underwent us guided paracentesis with removal of 3 L of serosanguineous fluid. On 10/18/2022, Dr. Lindsey Dennis performed EGD and biopsy. Per procedure note, at the GE junction, there was what seemed like an adenomatous polyp. Significant abnormal stomach with some sort of almost diffuse process noted involving cords of the stomach with sparing of pylorus and duodenum. Several biopsies were obtained from stomach as well as esophagus. 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 On 10/23/2022, patient underwent port placement by Dr. Buenrostro. She was also started on TPN via left PICC line. On 10/30/2022, patient was started on palliative chemotherapy with modified FOLFOX6 in combination with nivolumab. On the same day, patient underwent therapeutic paracentesis with removal of 2.4 L of clear fluid. On 11/02/2022, patient was discharged from the hospital. On 11/15/2022, PET at [facility] was obtained: 1. Moderate to marked FDG uptake at the gastroesophageal junction and extending along the lesser curvature of the proximal stomach, consistent with known biopsy-proven adenocarcinoma causing narrowing at the gastroesophageal junction with dilated and patulous upstream esophagus. Mild FDG uptake elsewhere in the stomach is thought to represent inflammatory changes. 2. Peritoneal carcinomatosis with associated mild FDG uptake. 3. Multiple centrilobular nodules in both lungs, predominantly in the right middle and left lower lobe with associated low level minimal FDG uptake, likely related to aspiration. Also, an area of moderately FDG avid plate like anterior subsegmental atelectasis and additional small groundglass/subsolid nodules in the right upper lobe, likely infective/ inflammatory in etiology. 4. Moderate to large volume ascites, mild right pleural effusion and pericardial effusion. 5. As seen on previous study, there is a cluster of collapsed and thickened distal small bowel loops within the right lower quadrant with mild prominence/ dilation of small bowel loops in the left upper quadrant of abdomen. Given that fecal matter is seen within the large bowel, this appearance likely represents partial bowel obstruction. 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 Genes analyzed: APC*, TATA*, AXIN2, BARD1, BMPR1A, BRCA1, BRCA2, BRIP1, CDH1, CDK4, CDKN2A (p14ARF), CDKN2A ([id number]), CHEK2, CTNNA1, DICER1*, EPCAM*, GREM1*, HOXB13, KIT, MEN1*, MLH1*, MSH2*, MSH3*, MSH6*, MUTYH, NBN, NF1*, NTHL1, PALB2, PDGFRA, PMS2*, POLD1*, POLE, PTEN*, RAD50, RAD51C, RAD51D, SDHA*, SDHB, SDHC*, SDHD, SMAD4, SMARCA4, STK11, TP53, TSC1*, TSC2, VHL On 11/27/2022, she underwent second ultrasound guided biopsy with removal of 3 liters of clear liquid. On 12/03/2022, she was seen by Nellie Butt MD of [facility]. - Patient Self-Reported Symptoms SR Constitution: Chills, Night Sweats SR eye issues: Vision changes SR ears, nose, mouth, throat issues: Mouth sores SR respiratory issues: Difficulty breathing SR Cardiovascular issues: Dizzy/lightheaded SR Skin issues: Skin rash or itching, Hair loss or scalp prob SR Gastrointestinal issues: Nausea, Diarrhea, Constipation, Blood in stool SR Genitourinary issues: Burning/painful urination SR Musculoskeletal issues: Cold hands or feet SR Neuro issues: Headache, Tremors or shaking SR Endocrine issues: Hot flashes - ROS All Systems: reviewed and no additional remarkable complaints except as stated Home Medications and Allergies Home Medications Medication Instructions Recorded Confirmed Type olanzapine 10 mg disintegrating 5 mg PO DAILY #30 tabs 11/02/22 03/17/23 Rx tablet (Zyprexa Zydis) pantoprazole 40 mg tablet,delayed 40 mg PO DAILY #30 tabs 11/02/22 03/17/23 Rx release (Protonix) sennosides 8.6 mg-docusate sodium 2 tab-cap PO BID #60 caps 11/02/22 03/17/23 Rx 50 mg capsule (Senna Plus) hydrocortisone 1 % topical cream 1 applic topical TID PRN Itching 11/11/22 03/17/23 Rx #100 grams hydroxyzine pamoate 25 mg capsule 25 mg PO Q4HR PRN Nausea #100 caps 11/11/22 03/17/23 Rx lidocaine 5 % topical patch 1 ea topical BEDTIME #30 ea 11/11/22 03/17/23 Rx morphine 30 mg immediate release 30 mg PO Q6H PRN pain #120 tabs 11/27/22 03/17/23 Rx tablet fluorouracil 2.5 gram/50 mL 4,000 mg (80 mL) IV NOW 12/17/22 03/17/23 Rx intravenous solution CHEMOTHERAPY #1 device mouthwashes 30 ml mucous membrane BID mouth 12/23/22 03/17/23 Rx sores #30 mL scopolamine base 1 mg over 3 days 1 patch transdermal Q3D #10 ea 01/14/23 03/17/23 Rx transdermal patch lidocaine-prilocaine 2.5 %-2.5 % 1 applic topical PRN PRN Pain At 01/28/23 03/17/23 Rx topical cream Injection Site #30 grams methadone 10 mg tablet 30 mg PO TID PRN Pain (Scale Score 02/17/23 03/17/23 Rx 1-3) #120 tabs ondansetron 8 mg disintegrating 8 mg PO Q8H #30 tabs 02/20/23 03/17/23 Rx tablet scopolamine base 1 mg over 3 days 1 patch transdermal Q3D PRN Nausea 02/20/23 03/17/23 Rx transdermal patch And Vomiting #10 ea prochlorperazine maleate 10 mg 10 mg PO Q6H PRN Nausea #30 tabs 02/27/23 03/17/23 Rx tablet (Compazine) Allergies Allergy/AdvReac Type Severity Reaction Status Date / Time No Known Drug Allergies Allergy Verified 11/06/22 15:14 Exam Vital signs: 03/17/23 11:01 Last Vital Signs Temp 97.6 F 03/17/23 10:26 Pulse 90 03/17/23 10:26 Resp 18 03/17/23 10:26 BP 134/85 03/17/23 10:26 Pulse Ox 100 03/17/23 10:26 O2 Flow Rate 2 11/20/22 14:14 - Constitutional positive no acute distress, positive cooperative - Routine HEENT Exam Head: Present: normocephalic, atraumatic Eye: Present: EOMI, PERRL, normal accommodation. Absent: conjunctival icterus - Routine Neck Exam Present: supple - Routine Chest/Breast/Axilla Exam Axillae: Absent: lymphadenopathy - Routine Respiratory Exam Present: Clear to auscultation bilaterally. Absent: wheezes, crackles - Routine Cardiovascular Exam Present: RRR, S1, S2. Absent: murmur, gallop, rubs - Routine Abdominal Exam Present: soft. Absent: tenderness, distended, organomegaly - Routine Extremities Exam Absent: edema - Routine Neurological Exam Present: alert, oriented X3, CN II-XII intact. Absent: sensory deficit, motor deficit - Routine Psychiatric Exam Present: normal affect Results - Labs Laboratory Last Values WBC 3.6 X10^3/uL (4.5-11.0) L 03/12/23 08:40 RBC 3.44 X10^6/uL (4.0-5.2) L 03/12/23 08:40 Hgb 8.2 g/dL (12.0-16.0) L 03/12/23 08:40 Hct 25.2 % (36-46) L 03/12/23 08:40 MCV 73.2 fL (80-100) L 03/12/23 08:40 MCH 23.8 PG (26-34) L 03/12/23 08:40 MCHC 32.6 % (30-36) 03/12/23 08:40 RDW 19.2 % (11.6-14.8) H 03/12/23 08:40 Plt Count 217 X10^3/uL (150-400) 03/12/23 08:40 Neut % (Auto) 34.8 % (50-75) L 03/12/23 08:40 Lymph % (Auto) 43.5 % (25-40) H 03/12/23 08:40 Ida % (Auto) 17.4 % (3-14) H 03/12/23 08:40 Eos % (Auto) 3.5 % (2-4) 03/12/23 08:40 Baso % (Auto) 0.8 % (0-2) 03/12/23 08:40 Neut # (Auto) 1300 /uL (9405-5845) L 03/12/23 08:40 Lymph # (Auto) 1600 /uL (0364-2406) 03/12/23 08:40 Ida # (Auto) 600 /uL (0-900) 03/12/23 08:40 Eos # (Auto) 100 /uL (0-450) 03/12/23 08:40 Baso # (Auto) 0 /uL (0-100) 03/12/23 08:40 Total Counted 100 11/20/22 09:20 Seg Neutrophils % 73.0 % (38-70) H 11/20/22 09:20 Lymphocytes % (Manual) 16.0 % (25-45) L 11/20/22 09:20 Monocytes % (Manual) 10.0 % (2-11) 11/20/22 09:20 Basophils % (Manual) 1.0 % (0-1) 11/20/22 09:20 Neutrophils # (Manual) 5694 /uL (2182-2083) 11/20/22 09:20 Nucleated RBCs Cancelled 12/30/22 13:45 Hypersegmented Neuts Cancelled 12/30/22 13:45 Hypogranular Neuts Cancelled 12/30/22 13:45 Reactive Lymphocytes Cancelled 12/30/22 13:45 Smudge Cells Cancelled 12/30/22 13:45 Other Cell Type Cancelled 12/30/22 13:45 Toxic Granulation Cancelled 12/30/22 13:45 Toxic Vacuolation Cancelled 12/30/22 13:45 Dohle Bodies Cancelled 12/30/22 13:45 Trey Rods Cancelled 12/30/22 13:45 WBC Morphology Comment Cancelled 12/30/22 13:45 Platelet Estimate Cancelled 12/30/22 13:45 Clumped Platelets Cancelled 12/30/22 13:45 Plt Morphology Comment Cancelled 12/30/22 13:45 RBC Morphology See below 02/18/23 14:55 Dimorphic RBCs Cancelled 12/30/22 13:45 Polychromasia Cancelled 12/30/22 13:45 Hypochromasia Cancelled 12/30/22 13:45 Poikilocytosis Cancelled 12/30/22 13:45 Basophilic Stippling Cancelled 12/30/22 13:45 Anisocytosis 2+ H 02/18/23 14:55 Microcytosis 1+ H 02/18/23 14:55 Macrocytosis Cancelled 12/30/22 13:45 Spherocytes Cancelled 12/30/22 13:45 Pappenheimer Bodies Cancelled 12/30/22 13:45 Sickle Cells Cancelled 12/30/22 13:45 Target Cells Cancelled 12/30/22 13:45 Tear Drop Cells Cancelled 12/30/22 13:45 Ovalocytes Cancelled 12/30/22 13:45 Stomatocytes Cancelled 12/30/22 13:45 Helmet Cells Cancelled 12/30/22 13:45 S[place] Bodies Cancelled 12/30/22 13:45 [place] Rings Cancelled 12/30/22 13:45 [place] Cells Cancelled 12/30/22 13:45 Acanthocytes (Spur) Cancelled 12/30/22 13:45 Rouleaux Cancelled 12/30/22 13:45 Schistocytes Cancelled 12/30/22 13:45 PT 13.0 SECONDS (10.1-12.7) H 12/30/22 13:45 INR 1.1 (0.9-1.3) 12/30/22 13:45 Sodium 137 mmol/L (137-145) 03/12/23 08:40 Potassium 4.3 mmol/L (3.4-5.1) 03/12/23 08:40 Chloride 107 mmol/L (98-107) 03/12/23 08:40 Carbon Dioxide 24 mmol/L (22-32) 03/12/23 08:40 BUN 24 mg/dL (7-17) H 03/12/23 08:40 Creatinine 0.43 mg/dL (0.52-1.04) L 03/12/23 08:40 Estimated GFR > 60 mL/min (>60) 03/12/23 08:40 BUN/Creatinine Ratio 55.8 (6-22) H 03/12/23 08:40 Glucose 105 mg/dL (70-100) H 03/12/23 08:40 Calcium 8.8 mg/dL (8.4-10.2) 03/12/23 08:40 Total Bilirubin 0.5 mg/dL (0.2-1.3) 03/12/23 08:40 AST 63 IU/L (14-36) H 03/12/23 08:40 ALT 59 IU/L (<35) H 03/12/23 08:40 Alkaline Phosphatase 259 U/L (38-126) H 03/12/23 08:40 Total Protein 6.9 g/dL (6.3-8.2) 03/12/23 08:40 Albumin 3.8 g/dL (3.5-5.0) 03/12/23 08:40 Globulin 3.1 g/dL (1.7-4.1) 03/12/23 08:40 Albumin/Globulin Ratio 1.2 (1.0-2.8) 03/12/23 08:40 Carcinoembryonic Ag 1.7 ng/mL (0.1-3.0) 03/12/23 08:40 CA 125 Antigen 77.2 U/mL (0-35) H 12/30/22 13:45 TSH 1.98 uIU/mL (0.47-4.68) 02/25/23 11:16 Urine Test Negative (Negative) 03/12/23 09:03 Blood Type B Positive 11/13/22 11:50 Antibody Screen Negative 11/13/22 11:50 Crossmatch See Detail 11/13/22 11:50 - Imaging Additional studies: Procedures Drainage of Peritoneal Cavity, Percutaneous Approach (10/16/22) Drainage of Peritoneal Cavity, Percutaneous Approach, Diagnostic (10/16/22) Excision of Esophagus, Via Natural or Artificial Opening Endoscopic, Diagnostic (10/16/22) Excision of Stomach, Via Natural or Artificial Opening Endoscopic, Diagnostic (10/16/22) Fluoroscopy of Right Subclavian Vein, Guidance (10/16/22) Insertion of Infusion Device into Right Subclavian Vein, Percutaneous Approach (10/16/22) Insertion of Infusion Device into Superior Vena Cava, Percutaneous Approach (10/16/22) Insertion of Totally Implantable Vascular Access Device into Chest Subcutaneous Tissue and Fascia, Open Approach (10/16/22) Introduction of Nutritional Substance into Peripheral Vein, Percutaneous Approach (10/16/22) Transfusion of Nonautologous Red Blood Cells into Central Vein, Percutaneous Approach (10/16/22) Assessment and Plan (1) Gastric adenocarcinoma Niecy Stokes is a 27 year old female who presented with abdominal pain, nausea/vomiting, weight loss, difficulty swallowing in 07/2022 and was diagnosed with diffuse gastric adenocarcinoma after EGD/biopsy on 10/18/2022. Molecular studies showed PD-L1 28-8 (OPDIVO) CPS score 5; HER2 negative (Score 0); and pMMR IHC. She has had 3 paracentesis. She is on TPN at home. 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 She was started on mFOLFOX6 + Nivolumab on 10/30/2022. Discussion: I talked with the patient about the constipation. Patient is taking occasionally MiraLax 17 g. Patient has not had a bowel movement for a couple of days. Patient actually cannot remember when was the last bowel movement. I am recommending that patient take MiraLax 17 g twice daily on a scheduled basis and observe the bowel movement and abdominal symptoms closely. Patient voiced understanding and agreed. Next I talked with patient about the TPN. Patient currently is able to eat and no problems with swallowing. I am recommending that we discontinue TPN and have the PICC line removed today. I explained to the patient that if we are not going to continue the TPN, it is not necessary to keep the PICC line because it increases the risk of possible infection. If it is needed, we will be able to put it back in the future. As far as the gastric cancer is concerned, patient has already received about 10 cycles of treatment. I am recommending we obtain a PET scan to further evaluate. Patient voiced understanding and agreed. 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 Plan: [facility] Counselling this Wed.
[2023-03-17 10:26] VITALS: BP 134/85; PULSE 90; RESP 18; TEMP 36.4; O2SAT 100
--- NOTE | 2023-03-17 11:40 | PC.NURSE ---
PICC DISCONTINUED Per Dr. Mario, Pt to discontinue TPN infusions and LUE PICC. PICC dc'd by TRINIDAD Schreiber in clinic today.
--- NOTE | 2023-03-18 11:04 | ONC.SCHED ---
PET scan: This is scheduled at [facility] 04/02/23.
[2023-03-19 15:51] LABS: Add Manual Diff / Slide Review NO; Basophils Absolute Auto 0 /uL (0-100); Basophils Percent Auto 0.7 % (0-2); Eosinophils Absolute Auto 100 /uL (0-450); Eosinophils Percent Auto 3.8 % (2-4); Hematocrit 27.5 % (36-46); Lymphocytes Absolute Auto 1400 /uL (1100-4500); Mean Corpuscular Hemoglobin 23.6 PG (26-34); Mean Corpuscular Volume 71.6 fL (80-100); Monocytes Absolute Auto 200 /uL (0-900); Monocytes Percent Auto 6.2 % (3-14); Neutrophils Absolute Auto 1800 /uL (1500-7000); Neutrophils Percent Auto 50.3 % (50-75); Platelet Count 219 X10^3/uL (150-400); Red Blood Cell Count 3.84 X10^6/uL (4.0-5.2); Red Cell Distribution Width 19.1 % (11.6-14.8); White Blood Cell Count 3.7 X10^3/uL (4.5-11.0)
[2023-03-19 16:01] LABS: Alanine Aminotransferase 65 IU/L (<35); Albumin 4.1 g/dL (3.5-5.0); Albumin Globulin Ratio 1.2 (1.0-2.8); Alkaline Phosphatase 271 U/L (38-126); Aspartate Aminotransferase 69 IU/L (14-36); BUN Creatinine Ratio 17.1 (6-22); Bilirubin Total 0.6 mg/dL (0.2-1.3); Blood Urea Nitrogen 12 mg/dL (7-17); Carbon Dioxide 28 mmol/L (22-32); Chloride 100 mmol/L (98-107); Estimated Glomerular Filt Rate > 60 mL/min (>60); Globulin 3.5 g/dL (1.7-4.1); Glucose 88 mg/dL (70-100); HEMOLYSIS < 15 (0-50); Sodium 135 mmol/L (137-145); Total Protein 7.6 g/dL (6.3-8.2)
[2023-03-25 09:28] LABS: Add Manual Diff / Slide Review NO; Basophils Absolute Auto 0 /uL (0-100); Basophils Percent Auto 0.9 % (0-2); Eosinophils Absolute Auto 100 /uL (0-450); Eosinophils Percent Auto 2.9 % (2-4); Hematocrit 25.8 % (36-46); Hemoglobin 8.3 g/dL (12.0-16.0); Lymphocytes Absolute Auto 1100 /uL (1100-4500); Lymphocytes Percent Auto 39.7 % (25-40); Mean Corpuscular HGB Conc 32.2 % (30-36); Mean Corpuscular Hemoglobin 23.2 PG (26-34); Monocytes Absolute Auto 300 /uL (0-900); Monocytes Percent Auto 12.6 % (3-14); Neutrophils Absolute Auto 1200 /uL (1500-7000); Neutrophils Percent Auto 43.9 % (50-75); Platelet Count 158 X10^3/uL (150-400); Red Blood Cell Count 3.59 X10^6/uL (4.0-5.2); Red Cell Distribution Width 19.2 % (11.6-14.8); White Blood Cell Count 2.7 X10^3/uL (4.5-11.0)
[2023-03-25 09:32] VITALS: BP 91/51; PULSE 91; RESP 18; TEMP 36.6; O2SAT 100
--- NOTE | 2023-03-25 09:44 | ONC.PN ---
PN -Subjective - Date of Visit Date of visit: 03/25/23 Chief Complaint: Metastatic gastric cancer with extensive peritoneal carcinomatosis, HER2 negative (IHC 0) and MMR intact. Interval history: Patient presents here today for continued chemo immunotherapy. On 03/21/2023, home TPN was discontinued. Thereafter, patient said that she has no problems swallowing and no difficulty eating. Patient eats about 3 times a day. However, she still losing weight. Since her previous visit, patient lost about 5 lb. Patient denies any shortness of breath or chest pain. Patient does have some dizziness. Pain denies any abdominal pain at this point. However, she said if she is not taking methadone, she is having epigastric pain. Patient said that the constipation has resolved with the use of the MiraLax. 03/18/2023, patient underwent abdominal ultrasound that showed no ascites. Oncology REY Pemberton is a 27 year old female without significant past medical history or surgical procedures. In 07/2022, she developed abdominal pain which became progressive worse associated with nausea and vomiting over the next couple of months. She lost about 20 lbs over about 2 months. On 10/09/2022, mammogram and US breast limited showed Bilateral hypoechoic areas, 1:00 position 3 cm from nipple in the right breast, and 11:00 position 2 to 3 cm from the nipple in the left breast, are suspicious, for which ultrasound guided biopsy is recommended. On 10/16/2022, she presented to the ER [facility] and was admitted to the hospital. CT abdomen and pelvis with contrast that showed ascites, peritoneal thickening, and suspected omental caking as well as moderate gastric wall thickening. On 10/17/2022, the patient underwent us guided paracentesis with removal of 3 L of serosanguineous fluid. On 10/18/2022, Dr. Lindsey Dennis performed EGD and biopsy. Per procedure note, at the GE junction, there was what seemed like an adenomatous polyp. Significant abnormal stomach with some sort of almost diffuse process noted involving cords of the stomach with sparing of pylorus and duodenum. Several biopsies were obtained from stomach as well as esophagus. 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 On 10/23/2022, patient underwent port placement by Dr. Buenrostro. She was also started on TPN via left PICC line. On 10/30/2022, patient was started on palliative chemotherapy with modified FOLFOX6 in combination with nivolumab. On the same day, patient underwent therapeutic paracentesis with removal of 2.4 L of clear fluid. On 11/02/2022, patient was discharged from the hospital. On 11/15/2022, PET at [facility] was obtained: 1. Moderate to marked FDG uptake at the gastroesophageal junction and extending along the lesser curvature of the proximal stomach, consistent with known biopsy-proven adenocarcinoma causing narrowing at the gastroesophageal junction with dilated and patulous upstream esophagus. Mild FDG uptake elsewhere in the stomach is thought to represent inflammatory changes. 2. Peritoneal carcinomatosis with associated mild FDG uptake. 3. Multiple centrilobular nodules in both lungs, predominantly in the right middle and left lower lobe with associated low level minimal FDG uptake, likely related to aspiration. Also, an area of moderately FDG avid plate like anterior subsegmental atelectasis and additional small groundglass/subsolid nodules in the right upper lobe, likely infective/ inflammatory in etiology. 4. Moderate to large volume ascites, mild right pleural effusion and pericardial effusion. 5. As seen on previous study, there is a cluster of collapsed and thickened distal small bowel loops within the right lower quadrant with mild prominence/ dilation of small bowel loops in the left upper quadrant of abdomen. Given that fecal matter is seen within the large bowel, this appearance likely represents partial bowel obstruction. 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 Genes analyzed: APC*, TATA*, AXIN2, BARD1, BMPR1A, BRCA1, BRCA2, BRIP1, CDH1, CDK4, CDKN2A (p14ARF), CDKN2A (d31FBW9c), CHEK2, CTNNA1, DICER1*, EPCAM*, GREM1*, HOXB13, KIT, MEN1*, MLH1*, MSH2*, MSH3*, MSH6*, MUTYH, NBN, NF1*, NTHL1, PALB2, PDGFRA, PMS2*, POLD1*, POLE, PTEN*, RAD50, RAD51C, RAD51D, SDHA*, SDHB, SDHC*, SDHD, SMAD4, SMARCA4, STK11, TP53, TSC1*, TSC2, VHL On 11/27/2022, she underwent second ultrasound guided biopsy with removal of 3 liters of clear liquid. On 12/03/2022, she was seen by Nellie Butt MD of [facility]. - Patient Self-Reported Symptoms SR Constitution: Weight loss/gain SR eye issues: Vision changes SR ears, nose, mouth, throat issues: Mouth sores, Bleeding gums, Changes in taste SR respiratory issues: Difficulty breathing SR Cardiovascular issues: Dizzy/lightheaded SR Skin issues: Skin rash or itching, Hair loss or scalp prob SR Gastrointestinal issues: Nausea, Vomiting SR Genitourinary issues: Burning/painful urination SR Musculoskeletal issues: Cold hands or feet SR Neuro issues: Headache, Lightheaded/dizzy SR Endocrine issues: Excessive thirst - ROS All Systems: reviewed and no additional remarkable complaints except as stated Home Medications and Allergies Home Medications Medication Instructions Recorded Confirmed Type olanzapine 10 mg disintegrating 5 mg PO DAILY #30 tabs 11/02/22 03/17/23 Rx tablet (Zyprexa Zydis) pantoprazole 40 mg tablet,delayed 40 mg PO DAILY #30 tabs 11/02/22 03/17/23 Rx release (Protonix) sennosides 8.6 mg-docusate sodium 2 tab-cap PO BID #60 caps 11/02/22 03/17/23 Rx 50 mg capsule (Senna Plus) hydrocortisone 1 % topical cream 1 applic topical TID PRN Itching 11/11/22 03/17/23 Rx #100 grams hydroxyzine pamoate 25 mg capsule 25 mg PO Q4HR PRN Nausea #100 caps 11/11/22 03/17/23 Rx lidocaine 5 % topical patch 1 ea topical BEDTIME #30 ea 11/11/22 03/17/23 Rx morphine 30 mg immediate release 30 mg PO Q6H PRN pain #120 tabs 11/27/22 03/17/23 Rx tablet fluorouracil 2.5 gram/50 mL 4,000 mg (80 mL) IV NOW 12/17/22 03/17/23 Rx intravenous solution CHEMOTHERAPY #1 device mouthwashes 30 ml mucous membrane BID mouth 12/23/22 03/17/23 Rx sores #30 mL scopolamine base 1 mg over 3 days 1 patch transdermal Q3D #10 ea 01/14/23 03/17/23 Rx transdermal patch lidocaine-prilocaine 2.5 %-2.5 % 1 applic topical PRN PRN Pain At 01/28/23 03/17/23 Rx topical cream Injection Site #30 grams ondansetron 8 mg disintegrating 8 mg PO Q8H #30 tabs 02/20/23 03/17/23 Rx tablet scopolamine base 1 mg over 3 days 1 patch transdermal Q3D PRN Nausea 02/20/23 03/17/23 Rx transdermal patch And Vomiting #10 ea methadone 10 mg tablet 30 mg PO TID #90 tabs 03/25/23 Rx prochlorperazine maleate 10 mg 10 mg PO Q6H PRN Nausea #30 tabs 03/25/23 Rx tablet (Compazine) Allergies Allergy/AdvReac Type Severity Reaction Status Date / Time No Known Drug Allergies Allergy Verified 11/06/22 15:14 Exam Vital signs: Vital Signs Temp Pulse Resp BP Pulse Ox 03/25/23 09:32 97.8 F 91 H 18 91/51 L 100 Intake and Output 03/24/23 03/25/23 03/25/23 23:59 07:59 15:59 Other: Weight 64.3 kg Patient Weight 03/25/23 23:59 Weight 64.3 kg Narrative: Patient appears comfortable and not in any acute respiratory distress. She is very pleasant and cooperative. Results - Labs Laboratory Last Values WBC 2.7 X10^3/uL (4.5-11.0) L 03/25/23 09:15 RBC 3.59 X10^6/uL (4.0-5.2) L 03/25/23 09:15 Hgb 8.3 g/dL (12.0-16.0) L 03/25/23 09:15 Hct 25.8 % (36-46) L 03/25/23 09:15 MCV 72.0 fL (80-100) L 03/25/23 09:15 MCH 23.2 PG (26-34) L 03/25/23 09:15 MCHC 32.2 % (30-36) 03/25/23 09:15 RDW 19.2 % (11.6-14.8) H 03/25/23 09:15 Plt Count 158 X10^3/uL (150-400) 03/25/23 09:15 Neut % (Auto) 43.9 % (50-75) L 03/25/23 09:15 Lymph % (Auto) 39.7 % (25-40) 03/25/23 09:15 Stokes % (Auto) 12.6 % (3-14) 03/25/23 09:15 Eos % (Auto) 2.9 % (2-4) 03/25/23 09:15 Baso % (Auto) 0.9 % (0-2) 03/25/23 09:15 Neut # (Auto) 1200 /uL (6771-6130) L 03/25/23 09:15 Lymph # (Auto) 1100 /uL (2968-1322) 03/25/23 09:15 Stokes # (Auto) 300 /uL (0-900) 03/25/23 09:15 Eos # (Auto) 100 /uL (0-450) 03/25/23 09:15 Baso # (Auto) 0 /uL (0-100) 03/25/23 09:15 Total Counted 100 11/20/22 09:20 Seg Neutrophils % 73.0 % (38-70) H 11/20/22 09:20 Lymphocytes % (Manual) 16.0 % (25-45) L 11/20/22 09:20 Monocytes % (Manual) 10.0 % (2-11) 11/20/22 09:20 Basophils % (Manual) 1.0 % (0-1) 11/20/22 09:20 Neutrophils # (Manual) 5694 /uL (6950-2229) 11/20/22 09:20 Nucleated RBCs Cancelled 12/30/22 13:45 Hypersegmented Neuts Cancelled 12/30/22 13:45 Hypogranular Neuts Cancelled 12/30/22 13:45 Reactive Lymphocytes Cancelled 12/30/22 13:45 Smudge Cells Cancelled 12/30/22 13:45 Other Cell Type Cancelled 12/30/22 13:45 Toxic Granulation Cancelled 12/30/22 13:45 Toxic Vacuolation Cancelled 12/30/22 13:45 Dohle Bodies Cancelled 12/30/22 13:45 Trey Rods Cancelled 12/30/22 13:45 WBC Morphology Comment Cancelled 12/30/22 13:45 Platelet Estimate Cancelled 12/30/22 13:45 Clumped Platelets Cancelled 12/30/22 13:45 Plt Morphology Comment Cancelled 12/30/22 13:45 RBC Morphology See below 02/18/23 14:55 Dimorphic RBCs Cancelled 12/30/22 13:45 Polychromasia Cancelled 12/30/22 13:45 Hypochromasia Cancelled 12/30/22 13:45 Poikilocytosis Cancelled 12/30/22 13:45 Basophilic Stippling Cancelled 12/30/22 13:45 Anisocytosis 2+ H 02/18/23 14:55 Microcytosis 1+ H 02/18/23 14:55 Macrocytosis Cancelled 12/30/22 13:45 Spherocytes Cancelled 12/30/22 13:45 Pappenheimer Bodies Cancelled 12/30/22 13:45 Sickle Cells Cancelled 12/30/22 13:45 Target Cells Cancelled 12/30/22 13:45 Tear Drop Cells Cancelled 12/30/22 13:45 Ovalocytes Cancelled 12/30/22 13:45 Stomatocytes Cancelled 12/30/22 13:45 Helmet Cells Cancelled 12/30/22 13:45 Sood-M[place] Bodies Cancelled 12/30/22 13:45 Ventura Rings Cancelled 12/30/22 13:45 Tereza Cells Cancelled 12/30/22 13:45 Acanthocytes (Spur) Cancelled 12/30/22 13:45 Rouleaux Cancelled 12/30/22 13:45 Schistocytes Cancelled 12/30/22 13:45 PT 13.0 SECONDS (10.1-12.7) H 12/30/22 13:45 INR 1.1 (0.9-1.3) 12/30/22 13:45 Sodium 135 mmol/L (137-145) L 03/19/23 15:40 Potassium 4.0 mmol/L (3.4-5.1) 03/19/23 15:40 Chloride 100 mmol/L (98-107) 03/19/23 15:40 Carbon Dioxide 28 mmol/L (22-32) 03/19/23 15:40 BUN 12 mg/dL (7-17) 03/19/23 15:40 Creatinine 0.70 mg/dL (0.52-1.04) 03/19/23 15:40 Estimated GFR > 60 mL/min (>60) 03/19/23 15:40 BUN/Creatinine Ratio 17.1 (6-22) 03/19/23 15:40 Glucose 88 mg/dL (70-100) 03/19/23 15:40 Calcium 9.0 mg/dL (8.4-10.2) 03/19/23 15:40 Total Bilirubin 0.6 mg/dL (0.2-1.3) 03/19/23 15:40 AST 69 IU/L (14-36) H 03/19/23 15:40 ALT 65 IU/L (<35) H 03/19/23 15:40 Alkaline Phosphatase 271 U/L (38-126) H 03/19/23 15:40 Total Protein 7.6 g/dL (6.3-8.2) 03/19/23 15:40 Albumin 4.1 g/dL (3.5-5.0) 03/19/23 15:40 Globulin 3.5 g/dL (1.7-4.1) 03/19/23 15:40 Albumin/Globulin Ratio 1.2 (1.0-2.8) 03/19/23 15:40 Carcinoembryonic Ag 1.7 ng/mL (0.1-3.0) 03/12/23 08:40 CA 125 Antigen 77.2 U/mL (0-35) H 12/30/22 13:45 TSH 1.98 uIU/mL (0.47-4.68) 02/25/23 11:16 Urine Test Negative (Negative) 03/12/23 09:03 Blood Type B Positive 11/13/22 11:50 Antibody Screen Negative 11/13/22 11:50 Crossmatch See Detail 11/13/22 11:50 - Imaging Additional studies: Procedures Drainage of Peritoneal Cavity, Percutaneous Approach (10/16/22) Drainage of Peritoneal Cavity, Percutaneous Approach, Diagnostic (10/16/22) Excision of Esophagus, Via Natural or Artificial Opening Endoscopic, Diagnostic (10/16/22) Excision of Stomach, Via Natural or Artificial Opening Endoscopic, Diagnostic (10/16/22) Fluoroscopy of Right Subclavian Vein, Guidance (10/16/22) Insertion of Infusion Device into Right Subclavian Vein, Percutaneous Approach (10/16/22) Insertion of Infusion Device into Superior Vena Cava, Percutaneous Approach (10/16/22) Insertion of Totally Implantable Vascular Access Device into Chest Subcutaneous Tissue and Fascia, Open Approach (10/16/22) Introduction of Nutritional Substance into Peripheral Vein, Percutaneous Approach (10/16/22) Transfusion of Nonautologous Red Blood Cells into Central Vein, Percutaneous Approach (10/16/22) Assessment and Plan (1) Gastric adenocarcinoma Niecy Stokes is a 27 year old female who presented with abdominal pain, nausea/vomiting, weight loss, difficulty swallowing in 07/2022 and was diagnosed with diffuse gastric adenocarcinoma after EGD/biopsy on 10/18/2022. Molecular studies showed PD-L1 28-8 (OPDIVO) CPS score 5; HER2 negative (Score 0); and pMMR IHC. She has had 3 paracentesis. 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 She was started on mFOLFOX6 + Nivolumab on 10/30/2022. TPN: 10/2022 - 03/17/2023 Discussion: Clinically, patient has been doing relatively well. The oral intake after TPN was discontinued seems to be improving and she has no problems eating and drinking. The abdominal pain is under excellent control with methadone use on as-needed basis. Nausea and vomiting is under excellent control with use of scopolamine and Compazine. I talked with the patient that patient may consider gradually taper off the scopolamine. In addition I also recommended that patient try to use methadone sparingly on as-needed basis. I talked with the patient that I will continue current treatment without any changes. I reviewed the lab results and noted that patient had a elevated CA 125 in the past. I will repeat the test Plan Ok to proceed to mFOLFOX6 and Nivolumab Miralax 17 gram bid PET scan pending. Add-on CA 125 RTC in 2 weeks for next cycle. 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 Plan: [facility] Genetic Counselling pending
[2023-03-25 09:46] LABS: Alanine Aminotransferase 60 IU/L (<35); Albumin 3.9 g/dL (3.5-5.0); Albumin Globulin Ratio 1.3 (1.0-2.8); Alkaline Phosphatase 274 U/L (38-126); Aspartate Aminotransferase 74 IU/L (14-36); BUN Creatinine Ratio 9.1 (6-22); Bilirubin Total 0.7 mg/dL (0.2-1.3); Blood Urea Nitrogen 6 mg/dL (7-17); Carbon Dioxide 28 mmol/L (22-32); Chloride 103 mmol/L (98-107); Estimated Glomerular Filt Rate > 60 mL/min (>60); Globulin 3.1 g/dL (1.7-4.1); Glucose 90 mg/dL (70-100); HEMOLYSIS < 15 (0-50); Potassium 3.9 mmol/L (3.4-5.1); Sodium 137 mmol/L (137-145)
[2023-03-25 10:16] LABS: Carcinoembryonic Antigen 1.9 ng/mL (0.1-3.0)
[2023-03-25] MEDS: ONDANSETRON 16 MG in SODIUM CHLORIDE 0.9% 50 ML 232 MG IV (11:20)
[2023-03-25 11:36] LABS: Cancer Antigen 125 22.8 U/mL (0-35)
[2023-03-25 11:36] LABS: Pregnancy Test Urine Negative (Negative)
[2023-03-25] MEDS: FOSAPREPITANT 150 MG in SODIUM CHLORIDE 0.9% 150 ML 300 MG IV (12:11)
[2023-03-25] MEDS: SODIUM CHLORIDE 0.9% 100 ML 21 ML IV (12:12)
[2023-03-25] MEDS: NIVOLUMAB 240 MG in SODIUM CHLORIDE 0.9% (CHEMO) 100 ML 248 ML IV (12:52)
[2023-03-25] MEDS: DEXTROSE 5 % IN WATER 100 ML 21 ML IV (12:54)
[2023-03-25] MEDS: LEUCOVORIN IV (13:30)
[2023-03-25] MEDS: DEXTROSE 5% IV ×2 (13:30→13:34)
[2023-03-25] MEDS: OXALIPLATIN IV (13:34)
--- NOTE | 2023-03-25 14:55 | ONC.PHA ---
Chemotherapy: S/O: 27 y.o. female, with diagnosis of metastatic gastric adenocarcinoma, is her for cycle 11 mFOLFOX6 and Nivolumab chemotherapy: Nivolumab 240mg, Oxaliplatin 85mg/m? (150mg), Leucovorin 400mg/m? (700mg), and 5FU bolus 400mg/m? (690mg), cycle 14 days. Today Wt = 64.3 kg, BSA = 1.67 m? A/P: Reviewed chemotherapy dose: Nivolumab, oxaliplatin, leucovorin and 5-FU doses are appropriate. Reviewed today labs: all pertinent labs are appropriate, except AST/ALT/alkaline phos = 74 (2x UNL)/60 (1.7x UNL)/274 (2.2x UNL) - no dose adjustment recommend. Last TSH (02/25/2023) = 1.98 (WNL). Today urine test is negative. Reviewed MD today note, ok to proceed to mFOLFOX and Nivolumab. PET scan pending. Allergies Allergy/AdvReac Type Severity Reaction Status Date / Time No Known Drug Allergies Allergy Verified 11/06/22 15:14 Diagnosis Malignant neoplasm of cardia 03/25/23 Malignant neoplasm of stomach, unspecified 03/25/23 Secondary malignant neoplasm of retroperitoneum and peritoneum 03/25/23 Neoplasm related pain (acute) (chronic) 03/25/23 Malignant ascites 03/25/23 Genetic susceptibility to other malignant neoplasm 03/25/23 Vital Signs Temperature 97.8 F 03/25/23 09:32 Pulse Rate 91 03/25/23 09:32 Respiratory Rate 18 03/25/23 09:32 Blood Pressure 91/51 03/25/23 09:32 Pulse Oximetry 100 03/25/23 09:32 Weight 64.3 kg 03/25/23 09:09 Laboratory WBC 2.7 X10^3/uL (4.5-11.0) L 03/25/23 09:15 RBC 3.59 X10^6/uL (4.0-5.2) L 03/25/23 09:15 Hgb 8.3 g/dL (12.0-16.0) L 03/25/23 09:15 Hct 25.8 % (36-46) L 03/25/23 09:15 Plt Count 158 X10^3/uL (150-400) 03/25/23 09:15 Neut # (Auto) 1200 /uL (1436-7826) L 03/25/23 09:15 Neutrophils # (Manual) 5694 /uL (3871-6213) 11/20/22 09:20 Creatinine 0.66 mg/dL (0.52-1.04) 03/25/23 09:15 Estimated GFR > 60 mL/min (>60) 03/25/23 09:15 Calcium 9.0 mg/dL (8.4-10.2) 03/25/23 09:15 Total Bilirubin 0.7 mg/dL (0.2-1.3) 03/25/23 09:15 AST 74 IU/L (14-36) H 03/25/23 09:15 ALT 60 IU/L (<35) H 03/25/23 09:15 Alkaline Phosphatase 274 U/L (38-126) H 03/25/23 09:15
--- NOTE | 2023-03-26 14:51 | PC.NURSE ---
Methadone had 2 different instructions on rx. [facility] asking for new Rx. This RN called and spoke to Dr. Mario at [facility] to escribe a new Rx.
--- NOTE | 2023-03-27 09:22 | ONC.SCHED ---
Methadone PA: I called covermymeds regarding Methadone PA for Niecy Woo and they said [facility] canceled the PA and to contact them. I called [facility] and they said the insurance wasn't going to pay for her Methadone so the patient paid lira for it yesterday using a good rx card. They said we don't need to do anything for it right now but she would need a PA for the next time she needs it.
--- NOTE | 2023-03-27 10:18 | PC.NURSE ---
Addendum entered by Ricarda Conteh R.N. 03/27/23 10:27: This RN also informed pt that Lesa RAMOS would be notified to for assistance in the RX denial process, pt verbalized understanding. This note given to Lesa RAMOS. Original Note: Methadone RX: Pt called inquiring about Methadone RX. Pt reports insurance denied medication because it was too much. This RN let pt know that Josie had contacted [facility] this morning regarding the Methadone RX and was told [facility] canceled the PA and to contact [facility]. Josie then contacted [facility], [facility] explained that the insurance wasn't going to pay for her methadone so the patient paid lira using a good rx card. Alejandraglen lynmisha also informed Josie pt would need PA next time pt needed refill. Pt explains to this RN yeah my sister in law had to pay $20 for it. Considering pt has medication on hand, this RN instructed pt to contact insurance company to inquire why they would no longer be covering cost of Methadone RX, pt verbalizes understanding and confirms she has contact info for her insurance company, pt agreeable to contact them.
[2023-03-27 15:14] LABS: Hematocrit 27.2 % (36-46); Hemoglobin 8.7 g/dL (12.0-16.0); Mean Corpuscular HGB Conc 31.9 % (30-36); Mean Corpuscular Volume 72.1 fL (80-100); Platelet Count 123 X10^3/uL (150-400); Red Blood Cell Count 3.77 X10^6/uL (4.0-5.2); Red Cell Distribution Width 19.6 % (11.6-14.8)
--- NOTE | 2023-03-27 15:16 | PC.NURSE ---
Addendum entered by Eleni Hugo R.N. 03/27/23 15:40: Patient now states that she has been drinking a lot of water but she has had some trouble urinating. Patient states that urine has been hard to start. Original Note: Patient not feeling well Patient came in for pump disconnect today, patient states that she had a fever yesterday (03/26) and that she spoke with Dr. Mario and was told to take tylenol and ib profen. Patient states that fever is gone today but that she has a headache every time she coughs. Patient denies urinary symptoms but urine is dark in color. CBC, CMP, UA ordered
[2023-03-27 15:17] LABS: White Blood Cell Count 1.6 X10^3/uL (4.5-11.0)
[2023-03-27 15:18] LABS: Add Manual Diff / Slide Review YES
[2023-03-27 15:27] LABS: Alanine Aminotransferase 83 IU/L (<35); Albumin 3.8 g/dL (3.5-5.0); Albumin Globulin Ratio 1.2 (1.0-2.8); Alkaline Phosphatase 292 U/L (38-126); Aspartate Aminotransferase 104 IU/L (14-36); BUN Creatinine Ratio 13.6 (6-22); Bilirubin Total 0.9 mg/dL (0.2-1.3); Blood Urea Nitrogen 9 mg/dL (7-17); Carbon Dioxide 26 mmol/L (22-32); Chloride 101 mmol/L (98-107); Estimated Glomerular Filt Rate > 60 mL/min (>60); Globulin 3.2 g/dL (1.7-4.1); Glucose 97 mg/dL (70-100); HEMOLYSIS < 15 (0-50); Sodium 132 mmol/L (137-145)
[2023-03-27] MEDS: SODIUM CHLORIDE 0.9% 1,000 ML 1000 ML IV (15:33)
[2023-03-27 15:37] LABS: Anisocytosis 2+; Microcytosis 2+
[2023-03-27 15:40] LABS: Neutrophils Absolute Manual 816 /uL (3000-5900); RBC Morphology See; Total Cells Counted 100
[2023-03-27 15:57] VITALS: BP 99/54; PULSE 71; RESP 15; TEMP 36.8; O2SAT 98
[2023-03-27 15:57] LABS: Appearance Urine UA CLEAR; Bilirubin Urine UA NEGATIVE (NEGATIVE); Color Urine UA YELLOW; Glucose Urine UA NEGATIVE (Negative); Ketones Urine UA TRACE (NEGATIVE); Leukocyte Esterase Urine UA 1+ (NEGATIVE); Nitrite Urine UA NEGATIVE (Negative); Occult Blood Urine UA NEGATIVE (Negative); Protein Urine UA 1+ (Negative); Specific Gravity Urine UA 1.015 (1.000-1.035)
[2023-03-27 16:04] LABS: Bacteria Urine Occasional (0-1); RBC Urine None Seen (0-5/HPF); Squamous Epithelial Cell Urine 5-10 /HPF (0-5/HPF); WBC Urine 5-10/HPF (0-5/HPF)
[2023-03-27 16:05] LABS: Culture Indicated Urine Specimen Cultured
--- NOTE | 2023-03-27 16:15 | PC.NURSE ---
LAB RESULTS Dr. Mario reviewed all lab results. Awaiting urine culture results. Order received for 1L NS to be given over 1 hour today. OK for Pt to leave after NS infusion is complete.
--- NOTE | 2023-03-31 10:42 | ONC.MSW ---
T/C-Re: Methadone Denial/Insurance Concern Activity: Left message for pt asking if she has spoken to her insurance company about the reason for the denial of the Methadone. Requested return call.
[2023-03-31] MEDS: SODIUM CHLORIDE 0.9% 1,000 ML 1000 ML IV (15:30)
[2023-03-31] MEDS: FOSAPREPITANT 150 MG in SODIUM CHLORIDE 0.9% 150 ML 300 MG IV (16:02)
[2023-03-31 16:10] VITALS: BP 98/57; PULSE 62; RESP 16; TEMP 36.5; O2SAT 100
[2023-03-31 16:10] LABS: Alanine Aminotransferase 54 IU/L (<35); Albumin 4.4 g/dL (3.5-5.0); Albumin Globulin Ratio 1.2 (1.0-2.8); Alkaline Phosphatase 309 U/L (38-126); Aspartate Aminotransferase 63 IU/L (14-36); Bilirubin Total 0.9 mg/dL (0.2-1.3); Blood Urea Nitrogen 8 mg/dL (7-17); Calcium 9.4 mg/dL (8.4-10.2); Carbon Dioxide 25 mmol/L (22-32); Chloride 99 mmol/L (98-107); Estimated Glomerular Filt Rate > 60 mL/min (>60); Globulin 3.7 g/dL (1.7-4.1); Glucose 93 mg/dL (70-100); HEMOLYSIS < 15 (0-50); Potassium 3.8 mmol/L (3.4-5.1); Sodium 132 mmol/L (137-145); Total Protein 8.1 g/dL (6.3-8.2)
[2023-03-31 16:13] LABS: Hematocrit 27.9 % (36-46); Hemoglobin 9.1 g/dL (12.0-16.0); Mean Corpuscular HGB Conc 32.8 % (30-36); Mean Corpuscular Hemoglobin 23.1 PG (26-34); Mean Corpuscular Volume 70.6 fL (80-100); Platelet Count 149 X10^3/uL (150-400); Red Blood Cell Count 3.95 X10^6/uL (4.0-5.2); Red Cell Distribution Width 18.7 % (11.6-14.8)
[2023-03-31 16:18] LABS: Add Manual Diff / Slide Review YES; White Blood Cell Count 1.7 X10^3/uL (4.5-11.0)
[2023-03-31 16:27] LABS: Neutrophils Absolute Manual 935 /uL (3000-5900); Total Cells Counted 100
[2023-03-31 16:28] LABS: Anisocytosis 1+; Microcytosis 1+
--- NOTE | 2023-03-31 16:30 | PC.NURSE ---
RN TERRA Pt reports vomiting that started Friday (03/28) afternoon and persisted through the weekend. She stated I have not not been able to keep anything down. Port accessed, labs drawn, started on 1L IV NS per protocol. Dr. Mario made aware and verbal order received for 150mg IV emend over 30 minutes. Potassium and magnesium lab values within normal limits. WBC is 1.7, slightly improved from 03/27. Dr. Mario made aware, he stated that Pt needs to return to clinic tomorrow for repeat labs.
[2023-04-01 15:23] LABS: Appearance Urine UA CLEAR; Bilirubin Urine UA NEGATIVE (NEGATIVE); Color Urine UA YELLOW; Glucose Urine UA NEGATIVE (Negative); Ketones Urine UA NEGATIVE (NEGATIVE); Leukocyte Esterase Urine UA 1+ (NEGATIVE); Nitrite Urine UA NEGATIVE (Negative); Occult Blood Urine UA NEGATIVE (Negative); Protein Urine UA NEGATIVE (Negative)
[2023-04-01 15:26] LABS: pH Urine UA 5.5 (4.5-8.0)
[2023-04-01 15:30] LABS: Bacteria Urine Few (2-10); Culture Indicated Urine Specimen Cultured; RBC Urine None Seen (0-5/HPF); Squamous Epithelial Cell Urine 1-5 /HPF (0-5/HPF); WBC Urine 5-10/HPF (0-5/HPF)
[2023-04-01] MEDS: SODIUM CHLORIDE 0.9% 500 ML 1000 ML IV (15:30)
[2023-04-01 15:34] LABS: Add Manual Diff / Slide Review NO; Basophils Absolute Auto 0 /uL (0-100); Basophils Percent Auto 0.8 % (0-2); Eosinophils Absolute Auto 100 /uL (0-450); Eosinophils Percent Auto 3.4 % (2-4); Hematocrit 26.8 % (36-46); Hemoglobin 8.8 g/dL (12.0-16.0); Lymphocytes Absolute Auto 800 /uL (1100-4500); Lymphocytes Percent Auto 41.3 % (25-40); Mean Corpuscular HGB Conc 32.8 % (30-36); Mean Corpuscular Hemoglobin 23.4 PG (26-34); Mean Corpuscular Volume 71.2 fL (80-100); Monocytes Absolute Auto 100 /uL (0-900); Monocytes Percent Auto 5.3 % (3-14); Neutrophils Absolute Auto 1000 /uL (1500-7000); Neutrophils Percent Auto 49.2 % (50-75); Platelet Count 144 X10^3/uL (150-400); Red Blood Cell Count 3.76 X10^6/uL (4.0-5.2); Red Cell Distribution Width 18.5 % (11.6-14.8)
[2023-04-01 15:48] LABS: Alanine Aminotransferase 43 IU/L (<35); Albumin 4.3 g/dL (3.5-5.0); Albumin Globulin Ratio 1.2 (1.0-2.8); Alkaline Phosphatase 288 U/L (38-126); Aspartate Aminotransferase 65 IU/L (14-36); BUN Creatinine Ratio 9.7 (6-22); Bilirubin Total 0.7 mg/dL (0.2-1.3); Blood Urea Nitrogen 6 mg/dL (7-17); Calcium 9.3 mg/dL (8.4-10.2); Carbon Dioxide 24 mmol/L (22-32); Chloride 103 mmol/L (98-107); Estimated Glomerular Filt Rate > 60 mL/min (>60); Globulin 3.5 g/dL (1.7-4.1); Glucose 103 mg/dL (70-100); HEMOLYSIS 20 (0-50); Magnesium 1.9 mg/dL (1.6-2.3); Potassium 3.4 mmol/L (3.4-5.1); Sodium 136 mmol/L (137-145); Total Protein 7.8 g/dL (6.3-8.2)
[2023-04-01 15:57] VITALS: BP 99/54; PULSE 71; RESP 16; TEMP 36.6; O2SAT 100
--- NOTE | 2023-04-01 16:01 | PC.NURSE ---
Patient came back today for lab work and fluids. Patient states that she is feeling better overall. Patient states that she has been able to take in a little bit of food. Patient states that overall she has been feeling weak, patient believes that she needs to go back on TPN since she can't take in much food. Dr. Mario made aware of today's lab results and patient's verbalization. Patient will follow up with Dr. Mario next week.
--- NOTE | 2023-04-07 14:42 | PC.NURSE ---
TX DATE CHANGE DUE TO CHEMO PEOPLES BREAKDOWN IN PHARMACY. PER DR LIRA PATIENT SHOULD BE TREATED ON FRI IF THE PEOPLES IS REPAIRED OTHERWISE THE TX POSTPONED UNTIL NEXT WEEK.
--- NOTE | 2023-04-07 15:03 | PC.NURSE ---
Transfer to [facility]: this nurse spoke with patient who said that she would like to follow Dr. Mario to [facility] and receive her treatments there. gregory, RN informed to start the referral process.
--- NOTE | 2023-04-08 08:26 | P.PNONC_ITS ---
PN -Subjective - Date of Visit Date of visit: 04/08/23 Chief Complaint: Metastatic gastric cancer with extensive peritoneal carcinomatosis, HER2 negative (IHC 0) and MMR intact. Interval history: Niecy presents here today for continued chemo-immunotherapy. Niecy was acc ompanied by her . She said that she actually has been doing fairly well for the past one week. She reported that the most troublesome time was right after the chemotherapy. It usually lasted for about 2-3 days. She was having a lot of nausea and vomiting. She was also having cold sensitivity of the hands, but not the tongue or the lips. Thereafter, the symptoms gradually improved and then she was feeling better. She is now able to eat and drink. She does not think that TPN is necessary at this point. No fever and no chills. Oncology HPI Niecy is a 27 year old female without significant past medical history or surgical procedures. In 07/2022, she developed abdominal pain which became progressive worse associated with nausea and vomiting over the next couple of months. She lost about 20 lbs over about 2 months. On 10/09/2022, mammogram and US breast limited showed Bilateral hypoechoic areas, 1:00 position 3 cm from nipple in the right breast, and 11:00 position 2 to 3 cm from the nipple in the left breast, are suspicious, for which ultrasound guided biopsy is recommended. On 10/16/2022, she presented to the ER [facility] and was admitted to the hospital. CT abdomen and pelvis with contrast that showed ascites, peritoneal thickening, and suspected omental caking as well as moderate gastric wall thickening. On 10/17/2022, the patient underwent us guided paracentesis with removal of 3 L of serosanguineous fluid. On 10/18/2022, Dr. Lindsey Dennis performed EGD and biopsy. Per procedure note, at the GE junction, there was what seemed like an adenomatous polyp. Significant abnormal stomach with some sort of almost diffuse process noted involving cords of the stomach with sparing of pylorus and duodenum. Several biopsies were obtained from stomach as well as esophagus. 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 On 10/23/2022, patient underwent port placement by Dr. Buenrostro. She was also started on TPN via left PICC line. On 10/30/2022, patient was started on palliative chemotherapy with modified FOLFOX6 in combination with nivolumab. On the same day, patient underwent therapeutic paracentesis with removal of 2.4 L of clear fluid. On 11/02/2022, patient was discharged from the hospital. On 11/15/2022, PET at [facility] was obtained: 1. Moderate to marked FDG uptake at the gastroesophageal junction and extending along the lesser curvature of the proximal stomach, consistent with known biopsy-proven adenocarcinoma causing narrowing at the gastroesophageal junction with dilated and patulous upstream esophagus. Mild FDG uptake elsewhere in the stomach is thought to represent inflammatory changes. 2. Peritoneal carcinomatosis with associated mild FDG uptake. 3. Multiple centrilobular nodules in both lungs, predominantly in the right middle and left lower lobe with associated low level minimal FDG uptake, likely related to aspiration. Also, an area of moderately FDG avid plate like anterior subsegmental atelectasis and additional small groundglass/subsolid nodules in the right upper lobe, likely infective/ inflammatory in etiology. 4. Moderate to large volume ascites, mild right pleural effusion and pericardial effusion. 5. As seen on previous study, there is a cluster of collapsed and thickened distal small bowel loops within the right lower quadrant with mild prominence/ dilation of small bowel loops in the left upper quadrant of abdomen. Given that fecal matter is seen within the large bowel, this appearance likely represents partial bowel obstruction. 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 Genes analyzed: APC*, TATA*, AXIN2, BARD1, BMPR1A, BRCA1, BRCA2, BRIP1, CDH1, CDK4, CDKN2A (p14ARF), CDKN2A (d20TYT1c), CHEK2, CTNNA1, DICER1*, EPCAM*, GREM1*, HOXB13, KIT, MEN1*, MLH1*, MSH2*, MSH3*, MSH6*, MUTYH, NBN, NF1*, NTHL1, PALB2, PDGFRA, PMS2*, POLD1*, POLE, PTEN*, RAD50, RAD51C, RAD51D, SDHA*, SDHB, SDHC*, SDHD, SMAD4, SMARCA4, STK11, TP53, TSC1*, TSC2, VHL On 11/27/2022, she underwent second ultrasound guided biopsy with removal of 3 liters of clear liquid. On 12/03/2022, she was seen by Nellie Butt MD of [facility]. On 03/21/2023, home TPN was discontinued. On 03/18/2023, patient underwent abdominal ultrasound that showed no ascites. - Patient Self-Reported Symptoms SR Constitution: Weight loss/gain SR eye issues: Vision changes SR ears, nose, mouth, throat issues: Mouth sores, Bleeding gums, Changes in taste SR respiratory issues: Difficulty breathing SR Cardiovascular issues: Dizzy/lightheaded SR Skin issues: Skin rash or itching, Hair loss or scalp prob SR Gastrointestinal issues: Nausea, Vomiting SR Genitourinary issues: Burning/painful urination SR Musculoskeletal issues: Cold hands or feet SR Neuro issues: Headache, Lightheaded/dizzy SR Endocrine issues: Excessive thirst - ROS All Systems: reviewed and no additional remarkable complaints except as stated Home Medications and Allergies Home Medications Medication Instructions Recorded Confirmed Type olanzapine 10 mg disintegrating 5 mg PO DAILY #30 tabs 11/02/22 03/17/23 Rx tablet (Zyprexa Zydis) pantoprazole 40 mg tablet,delayed 40 mg PO DAILY #30 tabs 11/02/22 03/17/23 Rx release (Protonix) sennosides 8.6 mg-docusate sodium 2 tab-cap PO BID #60 caps 11/02/22 03/17/23 Rx 50 mg capsule (Senna Plus) hydrocortisone 1 % topical cream 1 applic topical TID PRN Itching 11/11/22 03/17/23 Rx #100 grams hydroxyzine pamoate 25 mg capsule 25 mg PO Q4HR PRN Nausea #100 caps 11/11/22 03/17/23 Rx lidocaine 5 % topical patch 1 ea topical BEDTIME #30 ea 11/11/22 03/17/23 Rx morphine 30 mg immediate release 30 mg PO Q6H PRN pain #120 tabs 11/27/22 03/17/23 Rx tablet fluorouracil 2.5 gram/50 mL 4,000 mg (80 mL) IV NOW 12/17/22 03/17/23 Rx intravenous solution CHEMOTHERAPY #1 device mouthwashes 30 ml mucous membrane BID mouth 12/23/22 03/17/23 Rx sores #30 mL scopolamine base 1 mg over 3 days 1 patch transdermal Q3D #10 ea 01/14/23 03/17/23 Rx transdermal patch lidocaine-prilocaine 2.5 %-2.5 % 1 applic topical PRN PRN Pain At 01/28/23 0 03/17/23 Rx topical cream Injection Site #30 grams ondansetron 8 mg disintegrating 8 mg PO Q8H #30 tabs 02/20/23 03/17/23 Rx tablet prochlorperazine maleate 10 mg 10 mg PO Q6H PRN Nausea #30 tabs 03/25/23 Rx tablet (Compazine) scopolamine base 1 mg over 3 days 1 patch transdermal Q3D PRN Nausea 03/25/23 Rx transdermal patch And Vomiting #10 ea methadone 10 mg tablet 30 mg PO TID PRN cancer pain #100 03/26/23 Rx tabs Allergies Allergy/AdvReac Type Severity Reaction Status Date / Time No Known Drug Allergies Allergy Verified 11/06/22 15:14 Exam Vital signs: 04/08/23 13:11 Last Vital Signs Temp 97.8 F 04/01/23 15:57 Pulse 71 04/01/23 15:57 Resp 16 04/01/23 15:57 BP 99/54 L 04/01/23 15:57 Pulse Ox 100 04/01/23 15:57 O2 Flow Rate 2 11/20/22 14:14 Narrative: Patient appears comfortable and not in any acute respiratory distress. She is very pleasant and cooperative. Results - Labs Laboratory Last Values WBC 2.2 X10^3/uL (4.5-11.0) L 04/08/23 08:35 RBC 3.61 X10^6/uL (4.0-5.2) L 04/08/23 08:35 Hgb 8.4 g/dL (12.0-16.0) L 04/08/23 08:35 Hct 26.2 % (36-46) L 04/08/23 08:35 MCV 72.6 fL (80-100) L 04/08/23 08:35 MCH 23.3 PG (26-34) L 04/08/23 08:35 MCHC 32.1 % (30-36) 04/08/23 08:35 RDW 19.8 % (11.6-14.8) H 04/08/23 08:35 Plt Count 119 X10^3/uL (150-400) L 04/08/23 08:35 Neut % (Auto) 23.3 % (50-75) L 04/08/23 08:35 Lymph % (Auto) 59.1 % (25-40) H 04/08/23 08:35 [place] % (Auto) 13.5 % (3-14) 04/08/23 08:35 Eos % (Auto) 3.0 % (2-4) 04/08/23 08:35 Baso % (Auto) 1.1 % (0-2) 04/08/23 08:35 Neut # (Auto) 500 /uL (2548-2220) L 04/08/23 08:35 Lymph # (Auto) 1300 /uL (5887-6222) 04/08/23 08:35 [place] # (Auto) 300 /uL (0-900) 04/08/23 08:35 Eos # (Auto) 100 /uL (0-450) 04/08/23 08:35 Baso # (Auto) 0 /uL (0-100) 04/08/23 08:35 Total Counted 100 03/31/23 15:35 Seg Neutrophils % 54.0 % (38-70) 03/31/23 15:35 Band Neutrophils % 1.0 % (3-7) L 03/31/23 15:35 Lymphocytes % (Manual) 40.0 % (25-45) 03/31/23 15:35 Monocytes % (Manual) 4.0 % (2-11) 03/31/23 15:35 Eosinophils % (Manual) 1.0 % (2-4) L 03/31/23 15:35 Basophils % (Manual) 1.0 % (0-1) 03/27/23 14:50 Neutrophils # (Manual) 935 /uL (8018-2080) L 03/31/23 15:35 Nucleated RBCs Cancelled 12/30/22 13:45 Hypersegmented Neuts Cancelled 12/30/22 13:45 Hypogranular Neuts Cancelled 12/30/22 13:45 Reactive Lymphocytes Cancelled 12/30/22 13:45 Smudge Cells Cancelled 12/30/22 13:45 Other Cell Type Cancelled 12/30/22 13:45 Toxic Granulation Cancelled 12/30/22 13:45 Toxic Vacuolation Cancelled 12/30/22 13:45 Dohle Bodies Cancelled 12/30/22 13:45 Trey Rods Cancelled 12/30/22 13:45 WBC Morphology Comment Cancelled 12/30/22 13:45 Platelet Estimate Cancelled 12/30/22 13:45 Clumped Platelets Cancelled 12/30/22 13:45 Plt Morphology Comment Not Reportable 03/27/23 14:50 RBC Morphology See below 03/31/23 15:35 Dimorphic RBCs Cancelled 12/30/22 13:45 Polychromasia Cancelled 12/30/22 13:45 Hypochromasia Cancelled 12/30/22 13:45 Poikilocytosis Cancelled 12/30/22 13:45 Basophilic Stippling Cancelled 12/30/22 13:45 Anisocytosis 1+ H 03/31/23 15:35 Microcytosis 1+ H 03/31/23 15:35 Macrocytosis Cancelled 12/30/22 13:45 Spherocytes Cancelled 12/30/22 13:45 Pappenheimer Bodies Cancelled 12/30/22 13:45 Sickle Cells Cancelled 12/30/22 13:45 Target Cells Cancelled 12/30/22 13:45 Tear Drop Cells Cancelled 12/30/22 13:45 Ovalocytes Cancelled 12/30/22 13:45 Stomatocytes Cancelled 12/30/22 13:45 Helmet Cells Cancelled 12/30/22 13:45 Sood-Alvan Bodies Cancelled 12/30/22 13:45 [place] Rings Cancelled 12/30/22 13:45 Tereza Cells Cancelled 12/30/22 13:45 Acanthocytes (Spur) Cancelled 12/30/22 13:45 Rouleaux Cancelled 12/30/22 13:45 Schistocytes Cancelled 12/30/22 13:45 PT 13.0 SECONDS (10.1-12.7) H 12/30/22 13:45 INR 1.1 (0.9-1.3) 12/30/22 13:45 Sodium 137 mmol/L (137-145) 04/08/23 08:35 Potassium 3.4 mmol/L (3.4-5.1) 04/08/23 08:35 Chloride 103 mmol/L (98-107) 04/08/23 08:35 Carbon Dioxide 27 mmol/L (22-32) 04/08/23 08:35 BUN 9 mg/dL (7-17) 04/08/23 08:35 Creatinine 0.58 mg/dL (0.52-1.04) 04/08/23 08:35 Estimated GFR > 60 mL/min (>60) 04/08/23 08:35 BUN/Creatinine Ratio 15.5 (6-22) 04/08/23 08:35 Glucose 119 mg/dL (70-100) H 04/08/23 08:35 Calcium 9.1 mg/dL (8.4-10.2) 04/08/23 08:35 Magnesium 1.9 mg/dL (1.6-2.3) 04/01/23 15:20 Total Bilirubin 0.7 mg/dL (0.2-1.3) 04/08/23 08:35 AST 55 IU/L (14-36) H 04/08/23 08:35 ALT 38 IU/L (<35) H 04/08/23 08:35 Alkaline Phosphatase 276 U/L (38-126) H 04/08/23 08:35 Total Protein 7.1 g/dL (6.3-8.2) 04/08/23 08:35 Albumin 3.8 g/dL (3.5-5.0) 04/08/23 08:35 Globulin 3.3 g/dL (1.7-4.1) 04/08/23 08:35 Albumin/Globulin Ratio 1.2 (1.0-2.8) 04/08/23 08:35 Carcinoembryonic Ag 2.0 ng/mL (0.1-3.0) 04/08/23 08:35 CA 125 Antigen 22.8 U/mL (0-35) 03/25/23 10:48 TSH 1.98 uIU/mL (0.47-4.68) 02/25/23 11:16 Urine Color Yellow 04/01/23 15:15 Urine Appearance Clear 04/01/23 15:15 Urine pH 5.5 (4.5-8.0) 04/01/23 15:15 Ur Specific [place] 1.020 (1.000-1.035) 04/01/23 15:15 Urine Protein Negative (Negative) 04/01/23 15:15 Urine Glucose (UA) Negative g/dL (Negative) 04/01/23 15:15 Urine Ketones Negative (NEGATIVE) 04/01/23 15:15 Urine Occult Blood Negative (Negative) 04/01/23 15:15 Urine Nitrate Negative (Negative) 04/01/23 15:15 Urine Bilirubin Negative (NEGATIVE) 04/01/23 15:15 Urine Urobilinogen 1.0 E.U./dL (0.2) 04/01/23 15:15 Ur Leukocyte Esterase 1+ (NEGATIVE) H 04/01/23 15:15 Urine RBC None seen (0-5/HPF) 04/01/23 15:15 Urine WBC 5-10/hpf (0-5/HPF) H 04/01/23 15:15 Ur Squamous Epith Cells 1-5 /hpf (0-5/HPF) 04/01/23 15:15 Urine Bacteria Few (2-10) (None) H 04/01/23 15:15 Ur Culture Indicated? Specimen cultured 04/01/23 15:15 Urine Test Negative (Negative) 03/25/23 07:43 Blood Type B Positive 11/13/22 11:50 Antibody Screen Negative 11/13/22 11:50 Crossmatch See Detail 11/13/22 11:50 - Imaging Additional studies: Procedures Drainage of Peritoneal Cavity, Percutaneous Approach (10/16/22) Drainage of Peritoneal Cavity, Percutaneous Approach, Diagnostic (10/16/22) Excision of Esophagus, Via Natural or Artificial Opening Endoscopic, Diagnostic (10/16/22) Excision of Stomach, Via Natural or Artificial Opening Endoscopic, Diagnostic (10/16/22) Fluoroscopy of Right Subclavian Vein, Guidance (10/16/22) Insertion of Infusion Device into Right Subclavian Vein, Percutaneous Approach (10/16/22) Insertion of Infusion Device into Superior Vena Cava, Percutaneous Approach (10/16/22) Insertion of Totally Implantable Vascular Access Device into Chest Subcutaneous Tissue and Fascia, Open Approach (10/16/22) Introduction of Nutritional Substance into Peripheral Vein, Percutaneous Approach (10/16/22) Transfusion of Nonautologous Red Blood Cells into Central Vein, Percutaneous Approach (10/16/22) Assessment and Plan (1) Gastric adenocarcinoma Niecy Chilo Stokes is a 27 year old female who presented with abdominal pain, nausea/vomiting, weight loss, difficulty swallowing in 07/2022 and was diagnosed with diffuse gastric adenocarcinoma after EGD/biopsy on 10/18/2022. Molecular studies showed PD-L1 28-8 (OPDIVO) CPS score 5; HER2 negative (Score 0); and pMMR IHC. She has had 3 paracentesis. 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 She was started on mFOLFOX6 + Nivolumab on 10/30/2022. TPN: 10/2022 - 03/17/2023 Discussion: Today, I reviewed the PET scan from 04/02/2023. Overall, the PET scan showed decreased FDG activity compared to her previous PET scan. Then I reviewed the lab results with the patient. Tumor marker CA 125 has normalized. The ANC level was 500. I talked with the patient that I would recommend that we defer the treatment by 1 week. Patient voiced understanding and agreed. 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 Plan: [facility] Genetic Counselling pending
[2023-04-08 08:52] LABS: Add Manual Diff / Slide Review NO; Basophils Absolute Auto 0 /uL (0-100); Basophils Percent Auto 1.1 % (0-2); Eosinophils Absolute Auto 100 /uL (0-450); Hematocrit 26.2 % (36-46); Hemoglobin 8.4 g/dL (12.0-16.0); Lymphocytes Absolute Auto 1300 /uL (1100-4500); Lymphocytes Percent Auto 59.1 % (25-40); Mean Corpuscular HGB Conc 32.1 % (30-36); Mean Corpuscular Hemoglobin 23.3 PG (26-34); Mean Corpuscular Volume 72.6 fL (80-100); Monocytes Absolute Auto 300 /uL (0-900); Monocytes Percent Auto 13.5 % (3-14); Neutrophils Absolute Auto 500 /uL (1500-7000); Neutrophils Percent Auto 23.3 % (50-75); Platelet Count 119 X10^3/uL (150-400); Red Blood Cell Count 3.61 X10^6/uL (4.0-5.2); Red Cell Distribution Width 19.8 % (11.6-14.8); White Blood Cell Count 2.2 X10^3/uL (4.5-11.0)
[2023-04-08 08:58] LABS: Alanine Aminotransferase 38 IU/L (<35); Albumin 3.8 g/dL (3.5-5.0); Albumin Globulin Ratio 1.2 (1.0-2.8); Alkaline Phosphatase 276 U/L (38-126); Aspartate Aminotransferase 55 IU/L (14-36); BUN Creatinine Ratio 15.5 (6-22); Bilirubin Total 0.7 mg/dL (0.2-1.3); Blood Urea Nitrogen 9 mg/dL (7-17); Calcium 9.1 mg/dL (8.4-10.2); Carbon Dioxide 27 mmol/L (22-32); Chloride 103 mmol/L (98-107); Estimated Glomerular Filt Rate > 60 mL/min (>60); Globulin 3.3 g/dL (1.7-4.1); Glucose 119 mg/dL (70-100); HEMOLYSIS < 15 (0-50); Potassium 3.4 mmol/L (3.4-5.1); Sodium 137 mmol/L (137-145); Total Protein 7.1 g/dL (6.3-8.2)
--- NOTE | 2023-04-08 10:17 | ONC.SCHED ---
Transfer of Care: This has been emailed to the clinical team for them to send records to Dr. Mario at [facility]. Good to go with Insurance.
--- NOTE | 2023-04-08 15:59 | PC.NURSE ---
current reports, PN, path, DI reports sent to Deena at [facility]
== END ==
PROVIDERS: Internal Medicine Medical Oncology; PCP Family Medicine; Referring Provider Family Medicine; Visit Provider Internal Medicine Hematology & Oncology
DX: C16.0 Malignant neoplasm of cardia (principal); C78.6 Secondary malignant neoplasm of retroperitoneum and peritoneum; R18.0 Malignant ascites; Z15.09 Genetic susceptibility to other malignant neoplasm; Z80.0 Family history of malignant neoplasm of digestive organs
CPT/HCPCS: 36415; 36430; 36591; 36592; 49083; 71046; 80053; 81001; 81025; 82378; 83735; 84443; 85007; 85025; 85610; 86304; 86850; 86900; 86901; 87086; 93005; 93010; 96360; 96361; 96365; 96367; 96368; 96374; 96375; 96376; 96409; 96411; 96413; 96415; 96417; 96523; 99205; 99211; 99214; 99215; P9016; J0640; J1100; J1453; J1642; J2405; J2997; J9190; J9263; J9299

== ENCOUNTER 2023-04-25 11:02 | Emergency (ER) | payer OTHER, MEDICAID, SELFPAY ==
[2022-11-07 01:24] VITALS: BMI 30.5
[2023-04-25] VITALS (20 sets, daily range): BP systolic 96–118; BP diastolic 51–73; PULSE 65–119; RESP 12–17; TEMP 37.6–38.2; O2SAT 97–100; BMI 24.3
--- NOTE | 2023-04-25 11:29 | DI.RAD.S_ITS ---
PROCEDURE: XR CHEST 1V INDICATIONS: suspected sepsis TECHNIQUE: One view of the chest was acquired. COMPARISON: [facility], CR, XR CHEST 2V, 01/02/2023, 13:39. [facility], CR, XR CHEST 1V, 11/22/2022, 15:23. FINDINGS: Surgical changes and devices: Right chest wall port tip projects over the high SVC. Lungs and pleura: Lungs are clear. No pleural effusions or pneumothorax. Mediastinum: Mediastinal contours appear normal. Heart size is normal. Bones and chest wall: No suspicious bony lesions. Overlying soft tissues appear unremarkable. IMPRESSION: No acute cardiopulmonary process. Dictated by: Aryan Carrera M.D. on 04/25/2023 at 12:04 Approved by: Aryan Carrera M.D. on 04/25/2023 at 12:06
[2023-04-25 11:39] LABS: INR 1.1 (0.9-1.3)
[2023-04-25 11:42] LABS: Add Manual Diff / Slide Review NO; Basophils Absolute Auto 0 /uL (0-100); Basophils Percent Auto 0.5 % (0-2); Eosinophils Absolute Auto 300 /uL (0-450); Eosinophils Percent Auto 2.9 % (2-4); Hematocrit 30.3 % (36-46); Hemoglobin 9.8 g/dL (12.0-16.0); Lymphocytes Absolute Auto 300 /uL (1100-4500); Lymphocytes Percent Auto 2.8 % (25-40); Mean Corpuscular HGB Conc 32.3 % (30-36); Mean Corpuscular Hemoglobin 23.7 PG (26-34); Mean Corpuscular Volume 73.6 fL (80-100); Monocytes Absolute Auto 200 /uL (0-900); Monocytes Percent Auto 2.1 % (3-14); Neutrophils Absolute Auto 9000 /uL (1500-7000); Neutrophils Percent Auto 91.7 % (50-75); PTT Partial Thromboplastin Tim 34 SECONDS (26-36); Platelet Count 179 X10^3/uL (150-400); Red Blood Cell Count 4.11 X10^6/uL (4.0-5.2); Red Cell Distribution Width 21.5 % (11.6-14.8); White Blood Cell Count 9.9 X10^3/uL (4.5-11.0)
[2023-04-25 11:44] LABS: Alanine Aminotransferase 75 IU/L (<35); Albumin 4.2 g/dL (3.5-5.0); Albumin Globulin Ratio 1.1 (1.0-2.8); Alkaline Phosphatase 358 U/L (38-126); Aspartate Aminotransferase 104 IU/L (14-36); BUN Creatinine Ratio 11.8 (6-22); Bilirubin Total 2.5 mg/dL (0.2-1.3); Blood Urea Nitrogen 9 mg/dL (7-17); Calcium 9.2 mg/dL (8.4-10.2); Carbon Dioxide 23 mmol/L (22-32); Chloride 102 mmol/L (98-107); Estimated Glomerular Filt Rate > 60 mL/min (>60); Globulin 3.7 g/dL (1.7-4.1); Glucose 112 mg/dL (70-100); HEMOLYSIS < 15 (0-50); Lipase 38 U/L (23-300); Potassium 3.5 mmol/L (3.4-5.1); Sodium 134 mmol/L (137-145); Total Protein 7.9 g/dL (6.3-8.2)
[2023-04-25] MEDS: SODIUM CHLORIDE 0.9% 1,000 ML 1000 ML IV (11:49)
[2023-04-25] MEDS: ONDANSETRON 4 MG/2 ML INJ IV (11:49)
[2023-04-25 12:01] LABS: Procalcitonin 0.42 ng/mL (<0.5)
[2023-04-25 12:03] LABS: Anisocytosis 2+; Microcytosis 1+
[2023-04-25 12:04] LABS: Poikilocytosis 1+
--- NOTE | 2023-04-25 12:26 | ED.FEVER ---
HPI - Fever General Chief Complaint: Fever Stated Complaint: Dr Mario sent fever Time Seen by Provider: 04/25/23 12:25 Source: patient, RN notes reviewed and old records reviewed Limitations: no limitations History of Present Illness HPI Narrative: This is a 27-year-old female with metastatic gastric cancer, pathologies for poorly differentiated adenocarcinoma, she has a associated peritoneal carcinomatosis, omental caking and malignant ascites. Patient presents today with fever and some redness of her face. Patient states she started her 10th cycle of chemotherapy yesterday she developed fever today. But she states the redness and swelling of her cheeks was yesterday. She was told to take Benadryl yesterday which was helpful. She took a 2nd dose in the evening which did not seem to be as helpful she is not taken any today. She developed fever today was in contact with her oncology team who referred her to the ER. Patient states no headache, no cold cough or congestion. No chest pain, no shortness of breath, she has persistent nausea which is her baseline. She denies any vomiting. She has been stooling. No black or bloody stools. No dysuria urgency or frequency or other urinary changes. She is not had any body aches, chills or other changes. Patient states she is on methadone daily for chronic pain and prochlorperazine for nausea. Patient does have a port in place. No known drug allergies. No tobacco, alcohol or illicit. Patient is sent by Dr. Mario. Related Data Previous Rx's Medication Instructions Recorded olanzapine 10 mg disintegrating 5 mg PO DAILY #30 tabs 11/02/22 tablet (Zyprexa Zydis) pantoprazole 40 mg tablet,delayed 40 mg PO DAILY #30 tabs 11/02/22 release (Protonix) sennosides 8.6 mg-docusate sodium 2 tab-cap PO BID #60 caps 11/02/22 50 mg capsule (Senna Plus) hydrocortisone 1 % topical cream 1 applic topical TID PRN Itching 11/11/22 #100 grams hydroxyzine pamoate 25 mg capsule 25 mg PO Q4HR PRN Nausea #100 caps 11/11/22 lidocaine 5 % topical patch 1 ea topical BEDTIME #30 ea 11/11/22 morphine 30 mg immediate release 30 mg PO Q6H PRN pain #120 tabs 11/27/22 tablet fluorouracil 2.5 gram/50 mL 4,000 mg (80 mL) IV NOW 12/17/22 intravenous solution CHEMOTHERAPY #1 device mouthwashes 30 ml mucous membrane BID mouth 12/23/22 sores #30 mL scopolamine base 1 mg over 3 days 1 patch transdermal Q3D #10 ea 01/14/23 transdermal patch lidocaine-prilocaine 2.5 %-2.5 % 1 applic topical PRN PRN Pain At 01/28/23 topical cream Injection Site #30 grams ondansetron 8 mg disintegrating 8 mg PO Q8H #30 tabs 02/20/23 tablet prochlorperazine maleate 10 mg 10 mg PO Q6H PRN Nausea #30 tabs 03/25/23 tablet (Compazine) scopolamine base 1 mg over 3 days 1 patch transdermal Q3D PRN Nausea 03/25/23 transdermal patch And Vomiting #10 ea methadone 10 mg tablet 30 mg PO TID PRN cancer pain #100 03/26/23 tabs amoxicillin 875 mg-potassium 1 tab PO BID #20 tabs 04/25/23 clavulanate 125 mg tablet Allergies Allergy/AdvReac Type Severity Reaction Status Date / Time No Known Drug Allergies Allergy Verified 11/06/22 15:14 Review of Systems Review of Systems ROS Unobtainable: All systems reviewed & are unremarkable except as noted in HPI and below Patient History Medical History Healthy adult Family History Father Cancer Diabetes mellitus Grandmother Diabetes mellitus Father Cancer Aunt Cancer Social History household members: family and children Smoking Status: Former smoker Smoking Status: Former smoker tobacco type: vaping alcohol intake frequency: holidays/special occasions only Substance Use Type: does not use Exam Narrative Exam Narrative: Altered GENERAL: Alert and oriented x three, glucose HEENT: Head normocephalic, atraumatic, EOMI, pupils reactive, face symmetric, moist mucous membranes NECK: Supple, full range of motion CARDIOVASCULAR: Regular rate and rhythm without murmurs, rubs or gallops. Patient has poor access on the right chest. Clean dry and intact without signs of infection. RESPIRATORY: Breath sounds equal bilaterally, no wheezes rales or rhonchi. ABDOMEN: Soft, distended. Patient is nontender to touch. Normoactive bowel sounds all 4 quadrants. No guarding or rebound, rigidity, no mass : No CVA tenderness EXTREMITIES: Normal range of motion, no clubbing or edema. Neurovascularly intact NEUROLOGICAL: Cranial nerves II through XII grossly intact. Moving all extremities SKIN: Warm, dry, no petechiae, no rashes or lesions. Initial Vital Signs Initial Vital Signs: Vital Signs Pulse Rate 119 H 04/25/23 11:12 Blood Pressure 109/66 04/25/23 11:12 Pulse Oximetry 97 04/25/23 11:12 Course Orders Ordered: ED Orders 04/25/23 14:04 Urine Culture Stat Urine Microscopic Stat 04/25/23 14:47 CT abdomen pelvis w con Stat Discontinued Medications Sodium Chloride (Normal Saline 0.9%) 1,000 mls @ 1,000 mls/hr IV BOLUS ONE Stop: 04/25/23 12:28 Last Infusion: 04/25/23 13:08 Dose: 0 mls/hr Documented By: Admin: 04/25/23 11:49 Dose: 1,000 mls/hr Documented By: JAMEE Piperacillin Sod/Tazobactam (Sod 4.5 gm/ Sodium Chloride) 100 mls @ 200 mls/hr IV NOW ONE Stop: 04/25/23 16:09 Last Infusion: 04/25/23 16:55 Dose: 0 mls/hr Documented By: Admin: 04/25/23 16:18 Dose: 200 mls/hr Documented By: MICHAEL Ibuprofen (Ibuprofen 400 Mg Tablet) 800 mg PO NOW ONE Stop: 04/25/23 13:13 Last Admin: 04/25/23 13:23 Dose: 800 mg Documented By: MICHAEL Morphine Sulfate (Morphine 4 Mg/Ml Inj) 4 mg IV NOW ONE Stop: 04/25/23 14:49 Last Admin: 04/25/23 15:12 Dose: 4 mg Documented By: MICHAEL Ondansetron HCl (Ondansetron 4 Mg/2 Ml Inj) 4 mg IV NOW PRN PRN Reason: Nausea And Vomiting Last Admin: 04/25/23 11:49 Dose: 4 mg Documented By: JAMEE Ondansetron HCl (Ondansetron 4 Mg Odt) 4 mg SL NOW PRN PRN Reason: Nausea And Vomiting Vital Signs Vital signs: Vital Signs - 8 hr 04/25/23 13:00 04/25/23 13:00 04/25/23 14:09 Temperature 100.6 F H Pulse Rate 95 H Respiratory Rate Blood Pressure 118/59 L Pulse Oximetry 99 Oxygen Delivery Method Room Air 04/25/23 13:23 04/25/23 13:30 04/25/23 13:30 Temperature 100.6 F H Pulse Rate 95 H Respiratory Rate Blood Pressure 114/68 Pulse Oximetry 100 Oxygen Delivery Method 04/25/23 14:00 04/25/23 14:00 04/25/23 14:19 Temperature Pulse Rate 92 H Respiratory Rate Blood Pressure 109/58 L 105/55 L Pulse Oximetry 99 Oxygen Delivery Method 04/25/23 14:19 04/25/23 14:30 04/25/23 14:30 Temperature Pulse Rate 94 H 86 Respiratory Rate 17 17 Blood Pressure 109/58 L Pulse Oximetry 99 98 Oxygen Delivery Method Room Air 04/25/23 15:09 04/25/23 15:17 04/25/23 15:17 Temperature Pulse Rate 84 80 Respiratory Rate 16 Blood Pressure 101/52 L Pulse Oximetry 98 Oxygen Delivery Method 04/25/23 15:30 04/25/23 15:30 04/25/23 16:00 Temperature Pulse Rate 72 Respiratory Rate 12 Blood Pressure 96/51 L 102/53 L Pulse Oximetry 98 Oxygen Delivery Method 04/25/23 16:00 04/25/23 16:30 04/25/23 16:30 Temperature Pulse Rate 65 75 Respiratory Rate 12 15 Blood Pressure 98/73 Pulse Oximetry 99 100 Oxygen Delivery Method Room Air 04/25/23 17:28 04/25/23 17:00 04/25/23 17:00 Temperature Pulse Rate 76 74 Respiratory Rate 16 16 Blood Pressure 104/58 L 104/58 L Pulse Oximetry 98 99 Oxygen Delivery Method Room Air Room Air MDM - Fever Lab Data 04/25/23 11:20 04/25/23 11:20 Labs: Lab Results 04/25/23 04/25/23 04/25/23 Range/Units 11:20 11:20 11:20 WBC 9.9 (4.5-11.0) X10^3/uL RBC 4.11 (4.0-5.2) X10^6/uL Hgb 9.8 L (12.0-16.0) g/dL Hct 30.3 L (36-46) % MCV 73.6 L (80-100) fL MCH 23.7 L (26-34) PG MCHC 32.3 (30-36) % RDW 21.5 H (11.6-14.8) % Plt Count 179 (150-400) X10^3/uL Neut % (Auto) 91.7 H (50-75) % Lymph % (Auto) 2.8 L (25-40) % [place] % (Auto) 2.1 L (3-14) % Eos % (Auto) 2.9 (2-4) % Baso % (Auto) 0.5 (0-2) % Neut # (Auto) 9000 H (2107-6887) /uL Lymph # (Auto) 300 L (6921-5600) /uL [place] # (Auto) 200 (0-900) /uL Eos # (Auto) 300 (0-450) /uL Baso # (Auto) 0 (0-100) /uL RBC Morphology See below Poikilocytosis 1+ H Anisocytosis 2+ H Microcytosis 1+ H PT 13.0 H (10.1-12.7) SECONDS INR 1.1 (0.9-1.3) APTT 34 (26-36) SECONDS Sodium 134 L (137-145) mmol/L Potassium 3.5 (3.4-5.1) mmol/L Chloride 102 (98-107) mmol/L Carbon Dioxide 23 (22-32) mmol/L BUN 9 (7-17) mg/dL Creatinine 0.76 (0.52-1.04) mg/dL Estimated GFR > 60 (>60) mL/min BUN/Creatinine Ratio 11.8 (6-22) Glucose 112 H (70-100) mg/dL Lactate (0.7-2.1) mmol/L Calcium 9.2 (8.4-10.2) mg/dL Total Bilirubin 2.5 H (0.2-1.3) mg/dL AST 104 H (14-36) IU/L ALT 75 H (<35) IU/L Alkaline Phosphatase 358 H (38-126) U/L Total Protein 7.9 (6.3-8.2) g/dL Albumin 4.2 (3.5-5.0) g/dL Globulin 3.7 (1.7-4.1) g/dL Albumin/Globulin Ratio 1.1 (1.0-2.8) Lipase 38 (23-300) U/L Procalcitonin 0.42 (<0.5) ng/mL Urine RBC (0-5/HPF) Urine WBC (0-5/HPF) Ur Squamous Epith Cells (0-5/HPF) Urine Bacteria (None) Ur Culture Indicated? Micro UA Comment 04/25/23 04/25/23 Range/Units 11:20 14:04 WBC (4.5-11.0) X10^3/uL RBC (4.0-5.2) X10^6/uL Hgb (12.0-16.0) g/dL Hct (36-46) % MCV (80-100) fL MCH (26-34) PG MCHC (30-36) % RDW (11.6-14.8) % Plt Count (150-400) X10^3/uL Neut % (Auto) (50-75) % Lymph % (Auto) (25-40) % [place] % (Auto) (3-14) % Eos % (Auto) (2-4) % Baso % (Auto) (0-2) % Neut # (Auto) (0079-0384) /uL Lymph # (Auto) (5103-2158) /uL [place] # (Auto) (0-900) /uL Eos # (Auto) (0-450) /uL Baso # (Auto) (0-100) /uL RBC Morphology Poikilocytosis Anisocytosis Microcytosis PT (10.1-12.7) SECONDS INR (0.9-1.3) APTT (26-36) SECONDS Sodium (137-145) mmol/L Potassium (3.4-5.1) mmol/L Chloride (98-107) mmol/L Carbon Dioxide (22-32) mmol/L BUN (7-17) mg/dL Creatinine (0.52-1.04) mg/dL Estimated GFR (>60) mL/min BUN/Creatinine Ratio (6-22) Glucose (70-100) mg/dL Lactate 2.0 (0.7-2.1) mmol/L Calcium (8.4-10.2) mg/dL Total Bilirubin (0.2-1.3) mg/dL AST (14-36) IU/L ALT (<35) IU/L Alkaline Phosphatase (38-126) U/L Total Protein (6.3-8.2) g/dL Albumin (3.5-5.0) g/dL Globulin (1.7-4.1) g/dL Albumin/Globulin Ratio (1.0-2.8) Lipase (23-300) U/L Procalcitonin (<0.5) ng/mL Urine RBC None seen (0-5/HPF) Urine WBC None seen (0-5/HPF) Ur Squamous Epith Cells None seen (0-5/HPF) Urine Bacteria None seen (None) Ur Culture Indicated? Cult not indicated Micro UA Comment Microscopic normal Point of Care Testing Test Results Negative Urine Dip Bedside Urine Glucose Negative Bedside Urine Bilirubin - Negative Bedside Urine Ketone +/- 5 Urine Specific [place] 1.020 Bedside Urine Occult Blood - Negative Bedside Urine pH 6.0 Bedside Urine Protein +/- 15 Bedside Urine Urobilinogen - Negative Bedside Urine Nitrite - Negative Bedside Urine Leukocytes +/- 15 Esterase Imaging Data Chest x-ray: Radiologist's Impression: [address] [id number] XRay Report Signed Patient: Niecy Laguerre MR#: [id number] : 1995 Acct:[id number] Age/Sex: 27 / F Date of Service: 04/25/23 Loc: ED Accession Number: [id number] ?? Procedure: XR chest 1V Ordering Provider: Heena De Leon D.O. PROCEDURE:? XR CHEST 1V ? INDICATIONS:? suspected sepsis ? TECHNIQUE:? One view of the chest was acquired.? ? COMPARISON:? [facility], [facility], XR CHEST 2V, 01/02/2023, 13:39.? [facility], [place], XR CHEST 1V, 11/22/2022, 15:23. ? FINDINGS:? ? Surgical changes and devices:? Right chest wall port tip projects over the high SVC. ? Lungs and pleura:? Lungs are clear.? No pleural effusions or pneumothorax.? ? Mediastinum:? Mediastinal contours appear normal.? Heart size is normal.? ? Bones and chest wall:? No suspicious bony lesions.? Overlying soft tissues appear unremarkable.? ? IMPRESSION:? No acute cardiopulmonary process. ? ? ? Dictated by: Aryan Carrera M.D. on 04/25/2023 at 12:04 ? ? Approved by: Aryan Carrera M.D. on 04/25/2023 at 12:06?? MDM Narrative Medical decision making narrative: 27-year-old female with known metastatic cancer who is on her 10th round of chemotherapy just started yesterday developed fever in the last 24 hours. She does not appear to be neutropenic she has a white count of 9.9 hemoglobin is 9.8 appears very consistent with priors, platelets are 179 no bandemia reported. Coags are negative, sodium is 134 renal function electrolytes are otherwise normal glucose 112, patient's bilirubin is 2.5 today she was 0.7 on 09/15/2022 AST is 104 with a until 75 and alk-phos of 358. Procalcitonin is negative. Lipase is 38. Patient's urine sample has leukocyte esterase but otherwise negative. is negative. Patient's chest x-ray showed no acute change. Based on her elevation of liver enzymes CT abdomen pelvis was obtained. It shows probable patchy bilateral pneumonia significant interval decrease in loculated abdominal and pelvic ascites, small bowel loops are no longer nearly come together chronic thickening of the wall of the stomach and possibly representing serosal implants, cholelithiasis and large stool burden. Spoke with Oncology: Dr. Mario, is reviewed patient's labs, imaging. Agree with plan to treat pneumonia, agrees with current antibiotic choices. Reviewed all of patient's findings. Patient feels comfortable. She feels comfortable return home. Patient and I discussed return precautions all questions answered. Discharge Plan Departure Patient Disposition: Home Clinical Impression: Pneumonia, Elevated LFTs Instructions: DI for Pneumonia -- Adult Activity Restrictions/Additional Instructions: Please follow-up with your oncology team for recheck. I spoke with Dr. Mario today and reviewed your findings. Your liver enzymes are elevated from your most recent labs. Your CT imaging does show some patchy pneumonia, take oral antibiotics until completed. Prescription sent to [facility] in [place]. You can continue with ibuprofen or Motrin up to 600 mg every 6 hours or 800 mg every 8 hours. Please return for persistent fevers, new chest pain, shortness of breath, lightheadedness or passing out, vomiting, new abdominal back or flank pain, black or bloody stools or other new or concerning changes. Prescriptions: New amoxicillin-pot clavulanate 875-125 mg tablet 1 tab PO BID Qty: 20 0RF No Action morphine 30 mg tablet 30 mg PO Q6H PRN (Reason: pain) Qty: 120 0RF Rx Instructions: take 1 tablet four times per day for pain fluorouracil 2.5 gram/50 mL Solution 4,000 mg IV NOW Qty: 1 0RF Rx Instructions: continuous infusion over 46 hours mouthwashes Kit 30 ml MUCOUS MEMBRANE BID Qty: 30 1RF Rx Instructions: Swish, gargle and spit one to two teaspoonsfull for one minute. Repeat every six hours as needed. May be swallowed if esophageal involvement. scopolamine base 1 mg over 3 days Patch 3 Day 1 patch TRANSDERMAL Q3D Qty: 10 1RF lidocaine-prilocaine 2.5-2.5 % Cream 1 applic topical PRN PRN (Reason: Pain At Injection Site) Qty: 30 0RF Rx Instructions: Apply to the skin over the port 1 hours before the planned use of the port. Cover the cream with a small pieve of plastic wrap and leave in place until the port is accessed. ondansetron 8 mg Tablet,Disintegrating 8 mg PO Q8H Qty: 30 0RF prochlorperazine maleate [Compazine] 10 mg tablet 10 mg PO Q6H PRN (Reason: Nausea) Qty: 30 0RF scopolamine base 1 mg over 3 days Patch 3 Day 1 patch TRANSDERMAL Q3D PRN (Reason: Nausea And Vomiting) Qty: 10 0RF methadone 10 mg Tablet 30 mg PO TID PRN (Reason: cancer pain) Qty: 100 0RF olanzapine [Zyprexa Zydis] 10 mg Tablet,Disintegrating 5 mg PO DAILY Qty: 30 0RF pantoprazole [Protonix] 40 mg tablet,delayed release (DR/EC) 40 mg PO DAILY Qty: 30 0RF Senna Plus 8.6-50 mg capsule 2 tab-cap PO BID Qty: 60 0RF hydrocortisone 1 % Cream 1 applic topical TID PRN (Reason: Itching) Qty: 100 0RF lidocaine 5 % Adhesive Patch,Medicated 1 ea topical BEDTIME Qty: 30 0RF hydroxyzine pamoate 25 mg Capsule 25 mg PO Q4HR PRN (Reason: Nausea) Qty: 100 0RF Referrals: Yaneli Brewer DO [Primary Care Provider] - Stand Alone Forms: Patient Portal/API
[2023-04-25] MEDS: IBUPROFEN 400 MG TABLET 800 MG PO (13:23)
--- NOTE | 2023-04-25 14:47 | DI.CT.S_ITS ---
PROCEDURE: CT ABDOMEN PELVIS W CON INDICATIONS: know cancer, started recent round chemo, fever, elevated lft TECHNIQUE: After the administration of intravenous contrast, axial sections acquired from the lung bases to the pubic symphysis. Coronal and sagittal reformats were performed. For radiation dose reduction, the following was used: automated exposure control, adjustment of mA and/or kV according to patient size. COMPARISON: [facility], CT, CT ABDOMEN PELVIS W CON, 11/22/2022, 15:47. FINDINGS: Image quality: Excellent. Lung bases: Mild patchy right basilar pneumonia. Minimal patchy left basilar pneumonia. Resolution a moderate right pleural effusion and minimal left pleural effusion. Heart: No significant findings. ABDOMEN: Liver: Unremarkable. Gallbladder: Again noted is a gallstone in the gallbladder and prominence of the gallbladder wall. Biliary ducts: Unremarkable. Pancreas: Unremarkable. Spleen: Unremarkable. Adrenal Glands: Unremarkable. Kidneys and Ureters: Unremarkable. Stomach and Bowel: Diffuse thickening of the wall of the stomach, a chronic finding, possibly representing serosal implant disease. No dilated bowel loops. No evidence of bowel obstruction. Large fecal load. Peritoneum: Significant interval decrease in abdominal ascites. The small bowel loops are not nearly as clumped together as previously. In the pelvis, there are probable ovaries within the fluid with probable peritoneal implants as well as other peritoneal implants in the pelvis. Findings in the pelvis are similar to previously. Ventral Wall: No hernias. Abdominal Nodes: No retroperitoneal or mesenteric adenopathy by size criteria. Vessels: Aorta and inferior vena cava are normal in size. PELVIS: Pelvic Organs: Unremarkable. Bladder: Unremarkable. Pelvic Nodes: No enlarged lymph nodes. Miscellaneous: No hernias are seen. Bones: Unremarkable. IMPRESSION: 1. Probable patchy bilateral pneumonia. 2. Significant interval decrease in loculated abdominal and pelvic ascites. Additionally, the small bowel loops are no longer nearly is clumped together. Findings are consistent with interval response to therapy. 3. Chronic thickening of the wall the stomach, possibly representing serosal implants. Presumed serosal implants in the pelvis. 4. Cholelithiasis. 5. Large stool burden. Dictated by: Antoni Bird M.D. on 04/25/2023 at 15:33 Approved by: Antoni Bird M.D. on 04/25/2023 at 15:41
[2023-04-25 14:48] LABS: Bacteria Urine None Seen; Culture Indicated Urine Cult Not Indicated; RBC Urine None Seen (0-5/HPF); Squamous Epithelial Cell Urine None Seen (0-5/HPF); Urine Comments Microscopic Normal; WBC Urine None Seen (0-5/HPF)
[2023-04-25] MEDS: MORPHINE 4 MG/ML INJ IV (15:12)
[2023-04-25] MEDS: PIPERACILLIN/TAZO 4.5 GM in SODIUM CHLORIDE 0.9% 100 ML IV (16:18)
== END 2023-04-25 17:25 | disposition home or self-care (01) ==
PROVIDERS: Emergency Provider Emergency Medicine; PCP Family Medicine
DX: J18.9 Pneumonia, unspecified organism (principal); R79.89 Other specified abnormal findings of blood chemistry
CPT/HCPCS: 36415; 71045; 74177; 80053; 81003; 81015; 81025; 83605; 83690; 84145; 85025; 85610; 85730; 87040; 87086; 96361; 96365; 96375; 99284; 99285; J2270; J2405; J2543; Q9967

== ENCOUNTER 2023-05-16 10:17 | Emergency (ER) | payer OTHER, MEDICAID, SELFPAY ==
[2022-11-07 01:24] VITALS: BMI 30.5
[2023-05-16] VITALS (22 sets, daily range): BP systolic 92–109; BP diastolic 50–59; PULSE 82–114; RESP 13–21; TEMP 37.6; O2SAT 98–100
[2023-05-16] MEDS: SODIUM CHLORIDE 0.9% 1,000 ML 1000 ML IV (10:35)
--- NOTE | 2023-05-16 10:48 | ED_ITS ---
HPI - Allergic Reaction General Chief complaint: Fever Stated complaint: fever/headache/allergy reacation/HX chemo Time Seen by Provider: 05/16/23 10:39 History of Present Illness HPI narrative: Patient here with [id number] for fever headache and facial redness and swelling. This is her 4th episode, reaction to her chemotherapy for gastric cancer. She is followed by Dr. Mario with [place] [facility]. Denies any trouble swallowing or breathing. No rash or itching. Patient started chemotherapy for gastric cancer earlier this year. Her last treatment was 3 weeks ago. She usually gets medications for allergic reaction here in the department and discharged home. This episode started last night Related Data Previous Rx's Medication Instructions Recorded olanzapine 10 mg disintegrating 5 mg PO DAILY #30 tabs 11/02/22 tablet (Zyprexa Zydis) pantoprazole 40 mg tablet,delayed 40 mg PO DAILY #30 tabs 11/02/22 release (Protonix) sennosides 8.6 mg-docusate sodium 2 tab-cap PO BID #60 caps 11/02/22 50 mg capsule (Senna Plus) hydrocortisone 1 % topical cream 1 applic topical TID PRN Itching 11/11/22 #100 grams hydroxyzine pamoate 25 mg capsule 25 mg PO Q4HR PRN Nausea #100 caps 11/11/22 lidocaine 5 % topical patch 1 ea topical BEDTIME #30 ea 11/11/22 morphine 30 mg immediate release 30 mg PO Q6H PRN pain #120 tabs 11/27/22 tablet fluorouracil 2.5 gram/50 mL 4,000 mg (80 mL) IV NOW 12/17/22 intravenous solution CHEMOTHERAPY #1 device mouthwashes 30 ml mucous membrane BID mouth 12/23/22 sores #30 mL scopolamine base 1 mg over 3 days 1 patch transdermal Q3D #10 ea 01/14/23 transdermal patch lidocaine-prilocaine 2.5 %-2.5 % 1 applic topical PRN PRN Pain At 01/28/23 topical cream Injection Site #30 grams ondansetron 8 mg disintegrating 8 mg PO Q8H #30 tabs 02/20/23 tablet prochlorperazine maleate 10 mg 10 mg PO Q6H PRN Nausea #30 tabs 03/25/23 tablet (Compazine) scopolamine base 1 mg over 3 days 1 patch transdermal Q3D PRN Nausea 03/25/23 transdermal patch And Vomiting #10 ea methadone 10 mg tablet 30 mg PO TID PRN cancer pain #100 03/26/23 tabs amoxicillin 875 mg-potassium 1 tab PO BID #20 tabs 04/25/23 clavulanate 125 mg tablet Allergies Allergy/AdvReac Type Severity Reaction Status Date / Time No Known Drug Allergies Allergy Verified 11/06/22 15:14 Review of Systems Review of Systems Narrative: GENERAL: negative chills, fatigue, malaise, phos fever, negative sweats. HEENT: negative sinus pain, ear pain, sore throat, positive facial swelling/redness RESPIRATORY: negative dyspnea, cough CARDIOVASCULAR: negative chest pain, palpitations GASTROINTESTINAL: negative nausea, vomiting, abdominal pain : negative dysuria, frequency, hematuria MUSCULOSKELETAL: negative muscle or bony pain SKIN: negative rash, skin lesions NEUROLOGIC: negative weakness, numbness, positive headache ROS Unobtainable: All systems reviewed & are unremarkable except as noted in HPI and below Patient History Medical History Healthy adult Family History Father Cancer Diabetes mellitus Grandmother Diabetes mellitus Father Cancer Aunt Cancer Social History household members: family and children Smoking Status: Former smoker Smoking Status: Former smoker tobacco type: vaping alcohol intake frequency: holidays/special occasions only Substance Use Type: does not use Exam Narrative Exam Narrative: GENERAL: in no distress, not toxic not dyspneic HEAD: Normocephalic. EYES: Pupils equal round ENT: Mucous membranes moist. No lip swelling or tongue swelling no malocclusi on or trismus. No drooling. There is bilateral symmetric erythema and edema of the cheeks. There is mild periorbital edema. NECK: Trachea midline. CARDIOVASCULAR: Tachycardia with Regular rate and rhythm RESPIRATORY: Clear to auscultation. Breath sounds equal bilaterally. No wheezes, rales, or rhonchi. GASTROINTESTINAL: Abdomen soft, non-tender EXTREMITIES: No gross deformities. BACK: No flank tenderness. NEURO: AOx4. SKIN: Warm and dry PSYCH: Not anxious, is cooperative Initial Vital Signs Initial Vital Signs: Vital Signs Pulse Rate 114 H 05/16/23 10:34 Respiratory Rate 21 05/16/23 10:34 Pulse Oximetry 99 05/16/23 10:34 Course Orders Ordered: Discontinued Medications Acetaminophen (Acetaminophen 325 Mg Tablet) 975 mg PO NOW ONE Stop: 05/16/23 11:24 Last Admin: 05/16/23 11:28 Dose: 975 mg Documented By: DELMER Diphenhydramine HCl (Diphenhydramine 50 Mg/Ml Vial) 12.5 mg IV NOW ONE Stop: 05/16/23 11:13 Last Admin: 05/16/23 11:28 Dose: 12.5 mg Documented By: DELMER Famotidine (Famotidine 20 Mg/2 Ml Vial) 20 mg IV NOW HANNAH Last Admin: 05/16/23 11:29 Dose: 20 mg Documented By: DELMER Sodium Chloride (Normal Saline 0.9%) 1,000 mls @ 1,000 mls/hr IV BOLUS ONE Stop: 05/16/23 12:09 Last Infusion: 05/16/23 11:37 Dose: 0 mls/hr Documented By: Admin: 05/16/23 10:35 Dose: 1,000 mls/hr Documented By: DELMER Ondansetron HCl (Ondansetron 4 Mg/2 Ml Inj) 4 mg IV NOW ONE Stop: 05/16/23 14:07 Last Admin: 05/16/23 14:09 Dose: 4 mg Documented By: PARVEZ Vital Signs Vital signs: Vital Signs - 8 hr 05/16/23 10:35 05/16/23 10:34 05/16/23 10:35 Temperature 99.7 F H Pulse Rate 112 H 114 H 110 H Respiratory Rate 18 21 20 Blood Pressure 103/58 L Pulse Oximetry 100 99 100 Oxygen Delivery Method Room Air 05/16/23 10:35 05/16/23 10:45 05/16/23 11:00 Temperature Pulse Rate 109 H Respiratory Rate 19 Blood Pressure 103/58 L 102/58 L Pulse Oximetry 99 Oxygen Delivery Method 05/16/23 11:00 05/16/23 11:15 05/16/23 11:30 Temperature Pulse Rate 105 H 102 H Respiratory Rate 18 18 Blood Pressure 109/51 L Pulse Oximetry 100 100 Oxygen Delivery Method 05/16/23 11:30 05/16/23 11:45 05/16/23 12:00 Temperature Pulse Rate 103 H 101 H 100 H Respiratory Rate 18 18 16 Blood Pressure Pulse Oximetry 99 99 99 Oxygen Delivery Method 05/16/23 12:15 05/16/23 12:30 05/16/23 12:45 Temperature Pulse Rate 95 H 92 H 91 H Respiratory Rate 16 14 14 Blood Pressure Pulse Oximetry 98 98 98 Oxygen Delivery Method 05/16/23 13:00 05/16/23 13:15 05/16/23 13:40 Temperature Pulse Rate 87 85 87 Respiratory Rate 13 14 Blood Pressure Pulse Oximetry 98 99 Oxygen Delivery Method 05/16/23 13:42 05/16/23 13:42 05/16/23 13:45 Temperature Pulse Rate 84 82 Respiratory Rate 14 14 Blood Pressure 92/50 L Pulse Oximetry 100 100 Oxygen Delivery Method 05/16/23 13:48 05/16/23 13:48 05/16/23 14:00 Temperature Pulse Rate 82 Respiratory Rate 14 Blood Pressure 93/55 L 98/55 L Pulse Oximetry 100 Oxygen Delivery Method 05/16/23 14:00 05/16/23 14:15 05/16/23 14:30 Temperature Pulse Rate 83 83 Respiratory Rate 14 14 Blood Pressure 102/59 L Pulse Oximetry 100 100 Oxygen Delivery Method 05/16/23 14:30 05/16/23 14:45 05/16/23 15:00 Temperature Pulse Rate 87 86 Respiratory Rate 15 14 Blood Pressure 94/53 L Pulse Oximetry 100 100 Oxygen Delivery Method 05/16/23 15:00 Temperature Pulse Rate 90 Respiratory Rate 15 Blood Pressure Pulse Oximetry 100 Oxygen Delivery Method Room Air MDM - Allergic Reaction Lab Data 05/16/23 10:35 05/16/23 10:35 Labs: Lab Results 05/16/23 05/16/23 05/16/23 Range/Units 10:35 10:35 10:35 WBC 7.0 (4.5-11.0) X10^3/uL RBC 3.78 L (4.0-5.2) X10^6/uL Hgb 9.0 L (12.0-16.0) g/dL Hct 27.9 L (36-46) % MCV 73.9 L (80-100) fL MCH 23.9 L (26-34) PG MCHC 32.3 (30-36) % RDW 21.8 H (11.6-14.8) % Plt Count 217 (150-400) X10^3/uL Neut % (Auto) 87.0 H (50-75) % Lymph % (Auto) 4.9 L (25-40) % Harvey % (Auto) 6.1 (3-14) % Eos % (Auto) 1.4 L (2-4) % Baso % (Auto) 0.6 (0-2) % Neut # (Auto) 6100 (1026-4826) /uL Lymph # (Auto) 300 L (6876-5578) /uL Harvey # (Auto) 400 (0-900) /uL Eos # (Auto) 100 (0-450) /uL Baso # (Auto) 0 (0-100) /uL RBC Morphology Not Reportable Anisocytosis 2+ H PT 13.5 H (10.1-12.7) SECONDS INR 1.2 (0.9-1.3) APTT (26-36) SECONDS Sodium (137-145) mmol/L Potassium (3.4-5.1) mmol/L Chloride (98-107) mmol/L Carbon Dioxide (22-32) mmol/L BUN (7-17) mg/dL Creatinine (0.52-1.04) mg/dL Estimated GFR (>60) mL/min BUN/Creatinine Ratio (6-22) Glucose (70-100) mg/dL Lactate 1.5 (0.7-2.1) mmol/L Calcium (8.4-10.2) mg/dL Total Bilirubin (0.2-1.3) mg/dL AST (14-36) IU/L ALT (<35) IU/L Alkaline Phosphatase (38-126) U/L Total Protein (6.3-8.2) g/dL Albumin (3.5-5.0) g/dL Globulin (1.7-4.1) g/dL Albumin/Globulin Ratio (1.0-2.8) Procalcitonin (<0.5) ng/mL Urine Color Urine Appearance Urine pH (4.5-8.0) Ur Specific [place] (1.000-1.035) Urine Protein (Negative) Urine Glucose (UA) (Negative) g/dL Urine Ketones (NEGATIVE) Urine Occult Blood (Negative) Urine Nitrate (Negative) Urine Bilirubin (NEGATIVE) Urine Urobilinogen (0.2) E.U./dL Ur Leukocyte Esterase (NEGATIVE) Urine RBC (0-5/HPF) Urine WBC (0-5/HPF) Ur Squamous Epith Cells (0-5/HPF) Urine Bacteria (None) Urine Mucus (Negative) Ur Culture Indicated? 05/16/23 05/16/23 05/16/23 Range/Units 10:35 10:35 10:35 WBC (4.5-11.0) X10^3/uL RBC (4.0-5.2) X10^6/uL Hgb (12.0-16.0) g/dL Hct (36-46) % MCV (80-100) fL MCH (26-34) PG MCHC (30-36) % RDW (11.6-14.8) % Plt Count (150-400) X10^3/uL Neut % (Auto) (50-75) % Lymph % (Auto) (25-40) % Harvey % (Auto) (3-14) % Eos % (Auto) (2-4) % Baso % (Auto) (0-2) % Neut # (Auto) (9283-7237) /uL Lymph # (Auto) (2289-2361) /uL Harvey # (Auto) (0-900) /uL Eos # (Auto) (0-450) /uL Baso # (Auto) (0-100) /uL RBC Morphology Anisocytosis PT (10.1-12.7) SECONDS INR (0.9-1.3) APTT 33 (26-36) SECONDS Sodium 131 L (137-145) mmol/L Potassium 3.7 (3.4-5.1) mmol/L Chloride 101 (98-107) mmol/L Carbon Dioxide 21 L (22-32) mmol/L BUN 14 (7-17) mg/dL Creatinine 0.84 (0.52-1.04) mg/dL Estimated GFR > 60 (>60) mL/min BUN/Creatinine Ratio 16.7 (6-22) Glucose 98 (70-100) mg/dL Lactate (0.7-2.1) mmol/L Calcium 8.9 (8.4-10.2) mg/dL Total Bilirubin 0.9 (0.2-1.3) mg/dL AST 48 H (14-36) IU/L ALT 29 (<35) IU/L Alkaline Phosphatase 261 H (38-126) U/L Total Protein 7.3 (6.3-8.2) g/dL Albumin 3.8 (3.5-5.0) g/dL Globulin 3.5 (1.7-4.1) g/dL Albumin/Globulin Ratio 1.1 (1.0-2.8) Procalcitonin 0.41 (<0.5) ng/mL Urine Color Urine Appearance Urine pH (4.5-8.0) Ur Specific [place] (1.000-1.035) Urine Protein (Negative) Urine Glucose (UA) (Negative) g/dL Urine Ketones (NEGATIVE) Urine Occult Blood (Negative) Urine Nitrate (Negative) Urine Bilirubin (NEGATIVE) Urine Urobilinogen (0.2) E.U./dL Ur Leukocyte Esterase (NEGATIVE) Urine RBC (0-5/HPF) Urine WBC (0-5/HPF) Ur Squamous Epith Cells (0-5/HPF) Urine Bacteria (None) Urine Mucus (Negative) Ur Culture Indicated? 05/16/23 Range/Units 13:45 WBC (4.5-11.0) X10^3/uL RBC (4.0-5.2) X10^6/uL Hgb (12.0-16.0) g/dL Hct (36-46) % MCV (80-100) fL MCH (26-34) PG MCHC (30-36) % RDW (11.6-14.8) % Plt Count (150-400) X10^3/uL Neut % (Auto) (50-75) % Lymph % (Auto) (25-40) % Harvey % (Auto) (3-14) % Eos % (Auto) (2-4) % Baso % (Auto) (0-2) % Neut # (Auto) (2043-3677) /uL Lymph # (Auto) (7996-5260) /uL Harvey # (Auto) (0-900) /uL Eos # (Auto) (0-450) /uL Baso # (Auto) (0-100) /uL RBC Morphology Anisocytosis PT (10.1-12.7) SECONDS INR (0.9-1.3) APTT (26-36) SECONDS Sodium (137-145) mmol/L Potassium (3.4-5.1) mmol/L Chloride (98-107) mmol/L Carbon Dioxide (22-32) mmol/L BUN (7-17) mg/dL Creatinine (0.52-1.04) mg/dL Estimated GFR (>60) mL/min BUN/Creatinine Ratio (6-22) Glucose (70-100) mg/dL Lactate (0.7-2.1) mmol/L Calcium (8.4-10.2) mg/dL Total Bilirubin (0.2-1.3) mg/dL AST (14-36) IU/L ALT (<35) IU/L Alkaline Phosphatase (38-126) U/L Total Protein (6.3-8.2) g/dL Albumin (3.5-5.0) g/dL Globulin (1.7-4.1) g/dL Albumin/Globulin Ratio (1.0-2.8) Procalcitonin (<0.5) ng/mL Urine Color Yellow Urine Appearance Clear Urine pH 5.0 (4.5-8.0) Ur Specific [place] >=1.030 H (1.000-1.035) Urine Protein Trace H (Negative) Urine Glucose (UA) Negative (Negative) g/dL Urine Ketones 1+ H (NEGATIVE) Urine Occult Blood Negative (Negative) Urine Nitrate Negative (Negative) Urine Bilirubin Negative (NEGATIVE) Urine Urobilinogen 1.0 (0.2) E.U./dL Ur Leukocyte Esterase Negative (NEGATIVE) Urine RBC None seen (0-5/HPF) Urine WBC 1-5/hpf (0-5/HPF) Ur Squamous Epith Cells 1-5 /hpf (0-5/HPF) Urine Bacteria None seen (None) Urine Mucus 1+ H (Negative) Ur Culture Indicated? Cult not indicated Urine Dip Bedside Urine Glucose Negative Bedside Urine Bilirubin - Negative Bedside Urine Ketone ++ 40 Urine Specific [place] 1.025 Bedside Urine Occult Blood - Negative Bedside Urine pH 5.5 Bedside Urine Protein +/- 15 Bedside Urine Urobilinogen - Negative Bedside Urine Nitrite - Negative Bedside Urine Leukocytes - Negative Esterase MDM Narrative Medical decision making narrative: atient here with [id number] for fever headache and facial redness and swelling. This is her 4th episode, reaction to her chemotherapy for gastric cancer. She is followed by Dr. Mario with [place] [facility] Loc[facility]. Denies any trouble swallowing or breathing. No rash or itching. Patient started chemotherapy for gastric cancer earlier this year. Her last treatment was 3 weeks ago. She usually gets medications for allergic reaction here in the department and discharged home. This episode started last night After history and exam CBC CMP procalcitonin lactic acid blood culture IV fluids Tylenol MDM CC: Facial swelling headache fever Complicating co-morbidities: Gastric adenocarcinoma/on chemotherapy Data collected from: Patient and [id number] Medical records reviewed: Recent ER notes as well as oncology office visit April 08, 2023 Differential considered: Includes but not limited to cellulitis drug reaction Exam documented above, pertinent findings include: Erythema edema of bilateral cheek Lab Test results independently reviewed as above. Pertinent findings: WBC 7.0 hemoglobin 9.0 platelets 217 INR 1.2 lactic acid 1.5 sodium 131 potassium 3.7 AST 48 ALT 29 glucose 98 urinalysis specific gravity greater 1.03 negative nitrate Consultations: 11:11 a.m.. Spoke with patient's oncologist, Dr. Mario, he will make changes to her chemotherapy, these reactions are common he states with patient's chemotherapy. He recommends no steroids but okay with Benadryl and Pepcid. He will follow up with patient next chemo treatment and make changes accordingly. Treatments: Tylenol normal saline Benadryl Pepcid Re-evaluations: 3:08 p.m.. Patient feeling much better. Decreased erythema edema the cheeks. Headache gone. Heart rate is improved to 95 after IV fluids. Reviewed results with patient and my discussion with Dr. Mario. They agree for discharge home return precautions reviewed. Not Toxic at discharge Discussion: Appropriate for discharge home. Exam and laboratory studies are reassuring. No imaging indicated at this time. I did review with oncologist and this is common reaction. He will make changes to her regimen. Return precautions reviewed with patient. She desires discharge home. Diagnosis: Medication reaction Discharge Plan Departure Patient Disposition: Home Clinical Impression: Medication reaction Instructions: DI for Adverse Drug Reaction -- Other Activity Restrictions/Additional Instructions: Return if worse or any questions or concerns. Keep well hydrated. Please see your oncology doctor regarding medication that may be causing your reactions. He has been contacted today and he will make changes to these chemotherapy medications. Return if worse if any questions or concerns. Laboratory studies today are reassuring. Prescriptions: No Action morphine 30 mg tablet 30 mg PO Q6H PRN (Reason: pain) Qty: 120 0RF Rx Instructions: take 1 tablet four times per day for pain fluorouracil 2.5 gram/50 mL Solution 4,000 mg IV NOW Qty: 1 0RF Rx Instructions: continuous infusion over 46 hours mouthwashes Kit 30 ml MUCOUS MEMBRANE BID Qty: 30 1RF Rx Instructions: Swish, gargle and spit one to two teaspoonsfull for one minute. Repeat every six hours as needed. May be swallowed if esophageal involvement. scopolamine base 1 mg over 3 days Patch 3 Day 1 patch TRANSDERMAL Q3D Qty: 10 1RF lidocaine-prilocaine 2.5-2.5 % Cream 1 applic topical PRN PRN (Reason: Pain At Injection Site) Qty: 30 0RF Rx Instructions: Apply to the skin over the port 1 hours before the planned use of the port. Cover the cream with a small pieve of plastic wrap and leave in place until the port is accessed. ondansetron 8 mg Tablet,Disintegrating 8 mg PO Q8H Qty: 30 0RF prochlorperazine maleate [Compazine] 10 mg tablet 10 mg PO Q6H PRN (Reason: Nausea) Qty: 30 0RF scopolamine base 1 mg over 3 days Patch 3 Day 1 patch TRANSDERMAL Q3D PRN (Reason: Nausea And Vomiting) Qty: 10 0RF methadone 10 mg Tablet 30 mg PO TID PRN (Reason: cancer pain) Qty: 100 0RF amoxicillin-pot clavulanate 875-125 mg tablet 1 tab PO BID Qty: 20 0RF olanzapine [Zyprexa Zydis] 10 mg Tablet,Disintegrating 5 mg PO DAILY Qty: 30 0RF pantoprazole [Protonix] 40 mg tablet,delayed release (DR/EC) 40 mg PO DAILY Qty: 30 0RF Senna Plus 8.6-50 mg capsule 2 tab-cap PO BID Qty: 60 0RF hydrocortisone 1 % Cream 1 applic topical TID PRN (Reason: Itching) Qty: 100 0RF lidocaine 5 % Adhesive Patch,Medicated 1 ea topical BEDTIME Qty: 30 0RF hydroxyzine pamoate 25 mg Capsule 25 mg PO Q4HR PRN (Reason: Nausea) Qty: 100 0RF Referrals: Yaneli Brewer DO [Primary Care Provider] - Stand Alone Forms: Patient Portal/API
[2023-05-16 10:49] LABS: Add Manual Diff / Slide Review NO; Basophils Absolute Auto 0 /uL (0-100); Basophils Percent Auto 0.6 % (0-2); Eosinophils Absolute Auto 100 /uL (0-450); Eosinophils Percent Auto 1.4 % (2-4); Hematocrit 27.9 % (36-46); Lymphocytes Absolute Auto 300 /uL (1100-4500); Lymphocytes Percent Auto 4.9 % (25-40); Mean Corpuscular HGB Conc 32.3 % (30-36); Mean Corpuscular Hemoglobin 23.9 PG (26-34); Mean Corpuscular Volume 73.9 fL (80-100); Monocytes Absolute Auto 400 /uL (0-900); Monocytes Percent Auto 6.1 % (3-14); Neutrophils Absolute Auto 6100 /uL (1500-7000); Platelet Count 217 X10^3/uL (150-400); Red Blood Cell Count 3.78 X10^6/uL (4.0-5.2); Red Cell Distribution Width 21.8 % (11.6-14.8)
[2023-05-16 10:54] LABS: INR 1.2 (0.9-1.3); Prothrombin Time 13.5 SECONDS (10.1-12.7)
[2023-05-16 10:57] LABS: Lactate (Lactic Acid) 1.5 mmol/L (0.7-2.1)
[2023-05-16 10:59] LABS: Anisocytosis 2+
[2023-05-16 11:01] LABS: PTT Partial Thromboplastin Tim 33 SECONDS (26-36)
[2023-05-16 11:16] LABS: Procalcitonin 0.41 ng/mL (<0.5)
[2023-05-16] MEDS: ACETAMINOPHEN 325 MG TABLET 975 MG PO (11:28)
[2023-05-16] MEDS: diphenhydrAMINE 50 MG/ML VIAL 12.5 MG IV (11:28)
[2023-05-16] MEDS: FAMOTIDINE 20 MG/2 ML VIAL IV (11:29)
[2023-05-16 13:50] LABS: Appearance Urine UA CLEAR; Bilirubin Urine UA NEGATIVE (NEGATIVE); Color Urine UA YELLOW; Glucose Urine UA NEGATIVE (Negative); Ketones Urine UA 1+ (NEGATIVE); Leukocyte Esterase Urine UA NEGATIVE (NEGATIVE); Nitrite Urine UA NEGATIVE (Negative); Occult Blood Urine UA NEGATIVE (Negative); Protein Urine UA TRACE (Negative); Specific Gravity Urine UA >=1.030 (1.000-1.035)
[2023-05-16 13:57] LABS: Bacteria Urine None Seen; Culture Indicated Urine Cult Not Indicated; Mucus Urine 1+ (Negative); RBC Urine None Seen (0-5/HPF); Squamous Epithelial Cell Urine 1-5 /HPF (0-5/HPF); WBC Urine 1-5/HPF (0-5/HPF)
[2023-05-16 14:01] LABS: Alanine Aminotransferase 29 IU/L (<35); Albumin 3.8 g/dL (3.5-5.0); Albumin Globulin Ratio 1.1 (1.0-2.8); Alkaline Phosphatase 261 U/L (38-126); Aspartate Aminotransferase 48 IU/L (14-36); BUN Creatinine Ratio 16.7 (6-22); Bilirubin Total 0.9 mg/dL (0.2-1.3); Blood Urea Nitrogen 14 mg/dL (7-17); Calcium 8.9 mg/dL (8.4-10.2); Carbon Dioxide 21 mmol/L (22-32); Chloride 101 mmol/L (98-107); Estimated Glomerular Filt Rate > 60 mL/min (>60); Globulin 3.5 g/dL (1.7-4.1); Glucose 98 mg/dL (70-100); HEMOLYSIS < 15 (0-50); Potassium 3.7 mmol/L (3.4-5.1); Sodium 131 mmol/L (137-145); Total Protein 7.3 g/dL (6.3-8.2)
[2023-05-16] MEDS: ONDANSETRON 4 MG/2 ML INJ IV (14:09)
== END 2023-05-16 15:15 | disposition home or self-care (01) ==
PROVIDERS: Emergency Provider Emergency Medicine; PCP Family Medicine
DX: R60.9 Edema, unspecified (principal); R00.0 Tachycardia, unspecified; Z79.899 Other long term (current) drug therapy; T50.995A Adverse effect of other drugs, medicaments and biological substances, initial encounter
CPT/HCPCS: 36415; 80053; 81001; 81003; 83605; 84145; 85025; 85610; 85730; 87040; 96361; 96374; 96375; 99284; J1200; J2405

== ENCOUNTER → 2023-07-03 14:54 | Outpatient (CLI) | payer OTHER, MEDICAID, SELFPAY ==
[2022-11-07 01:24] VITALS: BMI 30.5
[2023-07-03 15:26] LABS: Add Manual Diff / Slide Review NO; Basophils Absolute Auto 0 /uL (0-100); Basophils Percent Auto 0.3 % (0-2); Eosinophils Absolute Auto 0 /uL (0-450); Hematocrit 32.5 % (36-46); Hemoglobin 10.7 g/dL (12.0-16.0); Lymphocytes Absolute Auto 1000 /uL (1100-4500); Lymphocytes Percent Auto 9.5 % (25-40); Mean Corpuscular HGB Conc 33.1 % (30-36); Mean Corpuscular Volume 72.6 fL (80-100); Monocytes Absolute Auto 200 /uL (0-900); Monocytes Percent Auto 2.3 % (3-14); Neutrophils Absolute Auto 9200 /uL (1500-7000); Neutrophils Percent Auto 87.9 % (50-75); Platelet Count 483 X10^3/uL (150-400); Red Blood Cell Count 4.48 X10^6/uL (4.0-5.2); Red Cell Distribution Width 23.1 % (11.6-14.8); White Blood Cell Count 10.5 X10^3/uL (4.5-11.0)
[2023-07-03 15:37] LABS: Alanine Aminotransferase 43 IU/L (<35); Albumin 3.6 g/dL (3.5-5.0); Albumin Globulin Ratio 0.9 (1.0-2.8); Alkaline Phosphatase 318 U/L (38-126); Aspartate Aminotransferase 66 IU/L (14-36); Bilirubin Total 0.9 mg/dL (0.2-1.3); Blood Urea Nitrogen 23 mg/dL (7-17); C-Reactive Protein Quant 4.5 mg/dL (<1.0); Calcium 9.3 mg/dL (8.4-10.2); Carbon Dioxide 26 mmol/L (22-32); Chloride 86 mmol/L (98-107); Estimated Glomerular Filt Rate > 60 mL/min (>60); Glucose 123 mg/dL (70-100); HEMOLYSIS < 15 (0-50); Magnesium 2.2 mg/dL (1.6-2.3); Phosphorous 3.9 mg/dL (2.5-4.5); Potassium 4.4 mmol/L (3.4-5.1); Sodium 123 mmol/L (137-145); Total Protein 7.6 g/dL (6.3-8.2); Triglycerides 181 mg/dL (35-150)
[2023-07-03 15:42] LABS: Anisocytosis 2+; Microcytosis 2+
[2023-07-03 15:44] LABS: Prealbumin 13.4 mg/dL (17.6-36.0)
== END ==
PROVIDERS: Internal Medicine Medical Oncology; PCP Family Medicine; Referring Provider Internal Medicine Hematology & Oncology; Visit Provider Internal Medicine Hematology & Oncology
DX: C16.9 Malignant neoplasm of stomach, unspecified (principal)
CPT/HCPCS: 36415; 80053; 83735; 84100; 84134; 84478; 85025; 86140

== ENCOUNTER → 2023-07-06 11:16 | Outpatient (ROUT) | payer OTHER, MEDICAID, SELFPAY ==
[2023-07-06 11:36] LABS: Add Manual Diff / Slide Review NO; Basophils Absolute Auto 0 /uL (0-100); Eosinophils Absolute Auto 0 /uL (0-450); Hemoglobin 10.4 g/dL (12.0-16.0); Lymphocytes Absolute Auto 1500 /uL (1100-4500); Lymphocytes Percent Auto 8.2 % (25-40); Mean Corpuscular HGB Conc 32.3 % (30-36); Mean Corpuscular Hemoglobin 23.5 PG (26-34); Mean Corpuscular Volume 72.7 fL (80-100); Monocytes Absolute Auto 800 /uL (0-900); Monocytes Percent Auto 4.3 % (3-14); Neutrophils Absolute Auto 16300 /uL (1500-7000); Neutrophils Percent Auto 87.5 % (50-75); Platelet Count 526 X10^3/uL (150-400); Red Cell Distribution Width 23.2 % (11.6-14.8); White Blood Cell Count 18.7 X10^3/uL (4.5-11.0)
[2023-07-06 11:41] LABS: Alanine Aminotransferase 57 IU/L (<35); Albumin 3.5 g/dL (3.5-5.0); Albumin Globulin Ratio 0.9 (1.0-2.8); Alkaline Phosphatase 381 U/L (38-126); Aspartate Aminotransferase 66 IU/L (14-36); BUN Creatinine Ratio 64.3 (6-22); Bilirubin Total 0.8 mg/dL (0.2-1.3); Blood Urea Nitrogen 36 mg/dL (7-17); Calcium 9.3 mg/dL (8.4-10.2); Carbon Dioxide 33 mmol/L (22-32); Chloride 79 mmol/L (98-107); Estimated Glomerular Filt Rate > 60 mL/min (>60); Globulin 3.8 g/dL (1.7-4.1); Glucose 115 mg/dL (70-100); HEMOLYSIS < 15 (0-50); Magnesium 2.4 mg/dL (1.6-2.3); Phosphorous 5.2 mg/dL (2.5-4.5); Potassium 4.6 mmol/L (3.4-5.1); Sodium 122 mmol/L (137-145); Total Protein 7.3 g/dL (6.3-8.2)
[2023-07-06 12:03] LABS: Anisocytosis 2+
== END ==
PROVIDERS: Visit Provider Internal Medicine Medical Oncology
DX: C16.9 Malignant neoplasm of stomach, unspecified (principal); Z79.899 Other long term (current) drug therapy
CPT/HCPCS: 80053; 83735; 84100; 85025

== ENCOUNTER 2023-07-07 11:27 | Emergency (ER) | payer OTHER, MEDICAID, SELFPAY ==
[2022-11-07 01:24] VITALS: BMI 30.5
[2023-07-07] VITALS (17 sets, daily range): BP systolic 112–131; BP diastolic 68–92; PULSE 99–126; RESP 9–22; TEMP 36.1; O2SAT 97–100; BMI 19.6
--- NOTE | 2023-07-07 | DI.CT.S_ITS ---
PROCEDURE: CT ABDOMEN PELVIS W CON INDICATIONS: ABD PAIN TECHNIQUE: After the administration of intravenous contrast, axial sections acquired from the lung bases to the pubic symphysis. Coronal and sagittal reformats were performed. For radiation dose reduction, the following was used: automated exposure control, adjustment of mA and/or kV according to patient size. COMPARISON: [facility], CT, CT ABDOMEN PELVIS W CON, 04/25/2023, 15:10. FINDINGS: Image quality: Excellent. Lung bases: Unremarkable. Heart: No significant findings. Other: The esophagus is now markedly dilated and filled with fluid. It measures approximately 3.2 cm in diameter. ABDOMEN: Liver: At least moderate diffuse hepatic steatosis. No focal liver mass identified. Gallbladder: There is a gallstone in the gallbladder. No gallbladder wall thickening. Biliary ducts: Unremarkable. Pancreas: Unremarkable. Spleen: Unremarkable. Adrenal Glands: Either a left adrenal metastatic lesion or metastatic disease immediately adjacent to the left adrenal has developed.. Kidneys and Ureters: Unremarkable. Stomach and Bowel: The small bowel contacts are all somewhat central in the abdomen, and the wall of the small bowel is diffusely enhancing period the proximal small bowel is dilated. More distally, the small bowel is quite small. Findings are consistent with small bowel obstruction secondary to serosal implant disease. Additionally, there are large deep pelvic serosal implants, as before. The stomach is diffusely decompressed except for the fundus, with development of wall edema and thickening and enhancement suggesting possible serosal implant disease. Peritoneum: Again noted is large pelvic serosal implants with loculated pelvic ascites. Ventral Wall: No hernias. Abdominal Nodes: No retroperitoneal or mesenteric adenopathy by size criteria. Vessels: Aorta and inferior vena cava are normal in size. PELVIS: Pelvic Organs: Unremarkable. Bladder: Unremarkable. Pelvic Nodes: No enlarged lymph nodes. Miscellaneous: No hernias are seen. Bones: Unremarkable. IMPRESSION: 1. Findings are highly suspicious for diffuse serosal implant disease with resultant high-grade small-bowel obstruction. 2. Possible stomach serosal implant disease with a decompressed stomach. 3. The esophagus is now markedly dilated and fluid-filled, which can either be secondary to small bowel obstruction or extrinsic narrowing on the stomach with obstruction of passage from the esophagus into the stomach. 4. Known large pelvic serosal implants with associated pelvic ascites. Dictated by: Antoni Bird M.D. on 07/07/2023 at 14:09 Approved by: Antoni Bird M.D. on 07/07/2023 at 14:16
--- NOTE | 2023-07-07 11:35 | DI.RAD.S_ITS ---
PROCEDURE: XR CHEST 1V INDICATIONS: chest pain TECHNIQUE: One view of the chest was acquired. COMPARISON: [facility], CR, XR CHEST 1V, 04/25/2023, 11:43. FINDINGS: Surgical changes and devices: Right chest Port-A-Cath, the tip of which projects to the right brachiocephalic vein. Location is unchanged. Lungs and pleura: Lungs are clear. No pleural effusions or pneumothorax. Mediastinum: Mediastinal contours appear normal. Heart size is normal. Bones and chest wall: No suspicious bony lesions. Overlying soft tissues appear unremarkable. IMPRESSION: No evidence acute pulmonary process. Dictated by: Antoni Bird M.D. on 07/07/2023 at 12:03 Approved by: Antoni Bird M.D. on 07/07/2023 at 12:04
[2023-07-07 12:22] LABS: Add Manual Diff / Slide Review YES; Hematocrit 32.1 % (36-46); Hemoglobin 10.5 g/dL (12.0-16.0); Mean Corpuscular HGB Conc 32.7 % (30-36); Mean Corpuscular Hemoglobin 23.9 PG (26-34); Mean Corpuscular Volume 73.2 fL (80-100); Platelet Count 488 X10^3/uL (150-400); Red Blood Cell Count 4.38 X10^6/uL (4.0-5.2); Red Cell Distribution Width 23.8 % (11.6-14.8)
[2023-07-07 12:31] LABS: Prothrombin Time 11.4 SECONDS (10.1-12.7)
[2023-07-07 12:35] LABS: PTT Partial Thromboplastin Tim 28 SECONDS (26-36)
[2023-07-07 12:35] LABS: Alanine Aminotransferase 60 IU/L (<35); Albumin 3.8 g/dL (3.5-5.0); Alkaline Phosphatase 384 U/L (38-126); Aspartate Aminotransferase 65 IU/L (14-36); BUN Creatinine Ratio 68.3 (6-22); Bilirubin Total 0.8 mg/dL (0.2-1.3); Blood Urea Nitrogen 43 mg/dL (7-17); Calcium 9.6 mg/dL (8.4-10.2); Carbon Dioxide 33 mmol/L (22-32); Chloride 81 mmol/L (98-107); Creatine Kinase < 20 U/L (30-135); Estimated Glomerular Filt Rate > 60 mL/min (>60); Glucose 162 mg/dL (70-100); HEMOLYSIS < 15 (0-50); Lipase 30 U/L (23-300); Magnesium 2.4 mg/dL (1.6-2.3); Potassium 3.8 mmol/L (3.4-5.1); Sodium 125 mmol/L (137-145); Total Protein 7.8 g/dL (6.3-8.2)
[2023-07-07 12:45] LABS: Troponin I < 0.012 ng/mL (0.01-0.034)
[2023-07-07 12:47] LABS: Anisocytosis 2+; Microcytosis 1+; Platelet Estimate Adequate on smear
--- NOTE | 2023-07-07 12:49 | DI.CT.S_ITS ---
PROCEDURE: CT ANGIO CHEST PE PROTOCOL INDICATIONS: ?PE, obstruction; sob, epigastric pain; hx gastric carcinoma TECHNIQUE: After the administration of intravenous contrast, 2 mm thick sections acquired from the pulmonary apices to the posterior costophrenic angles. 3-dimensional maximum intensity projection (MIP) coronal and sagittal reformats were then acquired through the thorax. For radiation dose reduction, the following was used: automated exposure control, adjustment of mA and/or kV according to patient size. COMPARISON: [facility], CT, CT ABDOMEN PELVIS W CON, 07/07/2023, 13:12. FINDINGS: Image quality: Excellent. Pulmonary arteries: Pulmonary arteries are normal in size, and demonstrate no intraluminal filling defects to suggest central pulmonary embolism. Lungs and pleura: Multiple subtle areas have developed of reticulonodular densities and very subtle developing alveolar consolidation, predominantly in the basilar portions of the lower lobes, possibly indicating subtle changes of bilateral aspiration pneumonia. No pulmonary nodules identified which are suspicious for pulmonary metastatic lesions. No pleural effusions or pneumothorax. Central and peripheral airways are patent. Mediastinum: Heart size is normal, without pericardial effusion. No mediastinal or hilar adenopathy. Thoracic aorta is normal in caliber and enhancement. Development of diffusely dilated esophagus filled with fluid and air. This is felt to be secondary to either malignant small-bowel obstruction or implant disease on the stomach resulting in decompression of the stomach. Bones and chest wall: No suspicious bony lesions. Ribs and thoracic spine appear intact throughout. Thyroid gland is unremarkable as visualized. No axillary or supraclavicular adenopathy. Right chest Port-A-Cath. Abdomen: At least moderate diffuse hepatic steatosis. Upper abdominal ascites. IMPRESSION: 1. Markedly dilated fluid-filled esophagus, consistent with obstruction at the level of the stomach or small bowel. 2. No evidence acute pulmonary emboli. 3. No evidence of metastatic disease in the chest. 4. Very subtle early bilateral infiltrates suggest probable bilateral aspiration pneumonia. 5. At least moderate diffuse hepatic steatosis. Comment: Please refer to a separate report for findings in the abdomen and pelvis. Dictated by: Antoni Bird M.D. on 07/07/2023 at 14:28 Approved by: Antoni Bird M.D. on 07/07/2023 at 14:48
[2023-07-07 12:53] LABS: Neutrophils Absolute Manual 14720 /uL (3000-5900); Total Cells Counted 100
[2023-07-07] MEDS: HYDROMORPHONE 1 MG INJ IV ×2 (13:00→16:04)
--- NOTE | 2023-07-07 13:21 | PC.NURSE ---
Pt developed chest pain and SOB yesterday evening which has not gotten any better. Pt has metastatic gastric cancer and has a right chest port which she receives TPN from. Pt usually tolerates PO liquids, but has not been able to since last night. Pt is somulent but alert to self and situation when you wake her up. Her brother Greg is at bedside with her. He is one of her caregivers and is on family medical leave now to care for her.
[2023-07-07 13:48] LABS: NT-proBNP (BNP-Adult 18+) 47 pg/mL (<125)
[2023-07-07] MEDS: ONDANSETRON 4 MG/2 ML INJ IV ×2 (13:58→16:54)
--- NOTE | 2023-07-07 14:17 | ED.CHESTPAIN ---
HPI - Chest Pain <Samantha Rodriguez PA-C - Last Filed: 07/07/23 17:53> General Chief Complaint: Chest Pain Stated Complaint: chest pain Time Seen by Provider: 07/07/23 12:22 Source: patient Mode of arrival: Ambulatory History of Present Illness HPI narrative: 27-year-old female with hereditary diffuse gastric cancer syndrome, metastatic gastric cancer, pathology that shows poorly differentiated adenocarcinoma, associated peritoneal carcinomatosis, omental caking and malignant ascites presents to the ED with 2 days of severe epigastric pain, nausea. Patient has close follow up with oncologist Dr. Mario, patient was last seen by him on 07/03/2023. Per his note, it appears that patient was hospitalized between 06 19-06 21 due to a small bowel obstruction after which she was discharged to hospice care. Around 07/01/2023, patient decided to revoke the hospice and continue to pursue active treatment. Patient restarted TPN at home by infusion solution on 07/02/2023. Patient had a PET scan on 07/01/2023, the final official reading is still pending. Patient states that she was beginning to feel better, her pain was satisfactorily managed with methadone. However, patient's epigastric pain worsened last night with no relief from the methadone. Patient is unable to tolerate p.o. patient was able to tolerate liquid foods such as soup prior to this. Patient endorses shortness of breath, epigastric pain, nausea. Patient denies fever, chills, chest pain, dysuria, lightheadedness, dizziness, syncope. It seems that patient has been on palliative chemotherapy, however that treatment has been halted for the past few weeks due to being ineffective. Dr. Mario suggestion is note to start a different regimen in the next few days. He would like patient to gain some strength with some TPN prior to starting any other treatments. Related Data Previous Rx's Medication Instructions Recorded olanzapine 10 mg disintegrating 5 mg (1/2 x 10 mg) PO DAILY #30 11/02/22 tablet (Zyprexa Zydis) tabs pantoprazole 40 mg tablet,delayed 40 mg PO DAILY #30 tabs 11/02/22 release (Protonix) sennosides 8.6 mg-docusate sodium 2 tab-cap (2 x 8.6-50 mg) PO BID 11/02/22 50 mg capsule (Senna Plus) #60 caps hydrocortisone 1 % topical cream 1 applic topical TID PRN Itching 11/11/22 #100 grams hydroxyzine pamoate 25 mg capsule 25 mg PO Q4HR PRN Nausea #100 caps 11/11/22 lidocaine 5 % topical patch 1 ea topical BEDTIME #30 ea 11/11/22 morphine 30 mg immediate release 30 mg PO Q6H PRN pain #120 tabs 11/27/22 tablet fluorouracil 2.5 gram/50 mL 4,000 mg IV NOW CHEMOTHERAPY #1 12/17/22 intravenous solution device mouthwashes 30 ml mucous membrane BID mouth 12/23/22 sores #30 mL scopolamine base 1 mg over 3 days 1 patch transdermal Q3D #10 ea 01/14/23 transdermal patch lidocaine-prilocaine 2.5 %-2.5 % 1 applic topical PRN PRN Pain At 01/28/23 topical cream Injection Site #30 grams ondansetron 8 mg disintegrating 8 mg PO Q8H #30 tabs 02/20/23 tablet prochlorperazine maleate 10 mg 10 mg PO Q6H PRN Nausea #30 tabs 03/25/23 tablet (Compazine) scopolamine base 1 mg over 3 days 1 patch transdermal Q3D PRN Nausea 03/25/23 transdermal patch And Vomiting #10 ea methadone 10 mg tablet 30 mg (3 x 10 mg) PO TID PRN 03/26/23 cancer pain #100 tabs amoxicillin 875 mg-potassium 1 tab PO BID #20 tabs 04/25/23 clavulanate 125 mg tablet azithromycin 200 mg/5 mL oral See Rx Instructions PO .COMPLEX 07/07/23 suspension #40 mL cefpodoxime 100 mg/5 mL oral 200 mg (10 mL) PO BID 5 days #100 07/07/23 suspension mL Allergies Allergy/AdvReac Type Severity Reaction Status Date / Time No Known Drug Allergies Allergy Verified 07/07/23 12:46 Patient History <Samantha Rodriguez PA-C - Last Filed: 07/07/23 17:53> Medical History Healthy adult Family History Father Cancer Diabetes mellitus Grandmother Diabetes mellitus Father Cancer Aunt Cancer Social History (System 07/07/23 @ 12:46 by Yue Sahni) household members: family and children Smoking Status: Former smoker Smoking Status: Former smoker tobacco type: vaping alcohol intake frequency: holidays/special occasions only Substance Use Type: does not use Exam <Samantha Rodriguez PA-C - Last Filed: 07/07/23 17:53> Initial Vital Signs Initial Vital Signs: Vital Signs Temperature 97 F L 07/07/23 11:37 Pulse Rate 126 H 07/07/23 11:37 Respiratory Rate 22 07/07/23 11:37 Blood Pressure 118/83 07/07/23 11:37 Pulse Oximetry 100 07/07/23 11:37 Oxygen Delivery Method Room Air 07/07/23 11:37 <Heena Topete MD - Last Filed: 07/07/23 17:55> Initial Vital Signs Initial Vital Signs: Vital Signs Temperature 97 F L 07/07/23 11:37 Pulse Rate 126 H 07/07/23 11:37 Respiratory Rate 22 07/07/23 11:37 Blood Pressure 118/83 07/07/23 11:37 Pulse Oximetry 100 07/07/23 11:37 Oxygen Delivery Method Room Air 07/07/23 11:37 Course <Samantha Rodriguez PA-C - Last Filed: 07/07/23 17:53> Orders Ordered: ED Orders 07/07/23 11:35 XR chest 1V Stat EKG-12 Lead Stat 07/07/23 11:50 BNP [NT-proBNP (BNP-Adult 18+)] Stat Comprehensive Metabolic Panel Stat Lipase Stat Magnesium Stat Troponin & CK Cardiac Panel Stat 07/07/23 11:58 Complete Blood Count AUTO DIFF Stat PTT Partial Thromboplastin Trevin Stat Prothrombin Time INR Stat 07/07/23 12:49 CT angio chest PE protocol Stat 07/07/23 15:56 Ictotest Urine Stat Urine Culture Stat Urine Microscopic Stat Discontinued Medications Heparin Sodium (Porcine) (Heparin 500 Unit/5 Ml Port Flush) 500 unit IV PRN PRN PRN Reason: Flush Last Admin: 07/07/23 15:44 Dose: 500 unit Documented By: SPF Hydromorphone HCl (Hydromorphone 1 Mg Inj) 1 mg IV NOW ONE Stop: 07/07/23 12:53 Last Admin: 07/07/23 13:00 Dose: 1 mg Documented By: THOMAS Hydromorphone HCl (Hydromorphone 1 Mg Inj) 1 mg IV NOW ONE Stop: 07/07/23 15:46 Last Admin: 07/07/23 16:04 Dose: 1 mg Documented By: THOMAS Sodium Chloride (Normal Saline 0.9%) 1,000 mls @ 1,000 mls/hr IV BOLUS ONE Stop: 07/07/23 16:45 Last Infusion: 07/07/23 17:28 Dose: Infused Documented By: Infusion: 07/07/23 16:58 Dose: 1,000 mls/hr Documented By: Admin: 07/07/23 16:04 Dose: 1,000 mls/hr Documented By: THOMAS Ondansetron HCl (Ondansetron 4 Mg/2 Ml Inj) 4 mg IV NOW ONE Stop: 07/07/23 13:45 Last Admin: 07/07/23 13:58 Dose: 4 mg Documented By: CLEMENT Ondansetron HCl (Ondansetron 4 Mg/2 Ml Inj) 4 mg IV NOW ONE Stop: 07/07/23 16:52 Last Admin: 07/07/23 16:54 Dose: 4 mg Documented By: THOMAS Vital Signs Vital signs: Vital Signs - 8 hr 07/07/23 11:37 07/07/23 11:54 07/07/23 11:54 Temperature 97 F L Pulse Rate 126 H 119 H Respiratory Rate 22 Blood Pressure 118/83 125/85 Pulse Oximetry 100 97 Oxygen Delivery Method Room Air 07/07/23 11:59 07/07/23 12:00 07/07/23 12:02 Temperature Pulse Rate 122 H 99 H Respiratory Rate Blood Pressure 131/78 Pulse Oximetry 98 Oxygen Delivery Method Room Air 07/07/23 12:30 07/07/23 12:30 07/07/23 13:00 Temperature Pulse Rate 114 H Respiratory Rate Blood Pressure 122/85 124/92 H Pulse Oximetry 100 Oxygen Delivery Method 07/07/23 13:00 07/07/23 13:30 07/07/23 13:42 Temperature Pulse Rate 111 H 109 H Respiratory Rate 16 11 L Blood Pressure 126/84 Pulse Oximetry 100 100 Oxygen Delivery Method Room Air 07/07/23 13:42 07/07/23 14:00 07/07/23 14:00 Temperature Pulse Rate 108 H 101 H Respiratory Rate 9 L 12 Blood Pressure 118/80 Pulse Oximetry 99 Oxygen Delivery Method 07/07/23 14:30 07/07/23 14:30 07/07/23 15:00 Temperature Pulse Rate 110 H 110 H Respiratory Rate 16 14 Blood Pressure 122/82 Pulse Oximetry 99 100 Oxygen Delivery Method Room Air Room Air 07/07/23 15:00 07/07/23 15:49 07/07/23 15:49 Temperature Pulse Rate 106 H Respiratory Rate Blood Pressure 112/83 114/82 Pulse Oximetry Oxygen Delivery Method 07/07/23 16:00 07/07/23 16:00 07/07/23 16:30 Temperature Pulse Rate 113 H Respiratory Rate 21 Blood Pressure 113/80 130/68 Pulse Oximetry 100 Oxygen Delivery Method 07/07/23 16:30 07/07/23 16:45 07/07/23 16:45 Temperature Pulse Rate 104 H 111 H Respiratory Rate 14 Blood Pressure 123/85 Pulse Oximetry 100 100 Oxygen Delivery Method 07/07/23 17:01 Temperature Pulse Rate 107 H Respiratory Rate 20 Blood Pressure Pulse Oximetry Oxygen Delivery Method <Heena Topete MD - Last Filed: 07/07/23 17:55> Orders Ordered: ED Orders 07/07/23 11:35 XR chest 1V Stat EKG-12 Lead Stat 07/07/23 11:50 BNP [NT-proBNP (BNP-Adult 18+)] Stat Comprehensive Metabolic Panel Stat Lipase Stat Magnesium Stat Troponin & CK Cardiac Panel Stat 07/07/23 11:58 Complete Blood Count AUTO DIFF Stat PTT Partial Thromboplastin Trevin Stat Prothrombin Time INR Stat 07/07/23 12:49 CT angio chest PE protocol Stat 07/07/23 15:56 Ictotest Urine Stat Urine Culture Stat Urine Microscopic Stat Discontinued Medications Heparin Sodium (Porcine) (Heparin 500 Unit/5 Ml Port Flush) 500 unit IV PRN PRN PRN Reason: Flush Last Admin: 07/07/23 15:44 Dose: 500 unit Documented By: SPF Hydromorphone HCl (Hydromorphone 1 Mg Inj) 1 mg IV NOW ONE Stop: 07/07/23 12:53 Last Admin: 07/07/23 13:00 Dose: 1 mg Documented By: SPF Hydromorphone HCl (Hydromorphone 1 Mg Inj) 1 mg IV NOW ONE Stop: 07/07/23 15:46 Last Admin: 07/07/23 16:04 Dose: 1 mg Documented By: THOMAS Sodium Chloride (Normal Saline 0.9%) 1,000 mls @ 1,000 mls/hr IV BOLUS ONE Stop: 07/07/23 16:45 Last Infusion: 07/07/23 17:28 Dose: Infused Documented By: Infusion: 07/07/23 16:58 Dose: 1,000 mls/hr Documented By: Admin: 07/07/23 16:04 Dose: 1,000 mls/hr Documented By: THOMAS Ondansetron HCl (Ondansetron 4 Mg/2 Ml Inj) 4 mg IV NOW ONE Stop: 07/07/23 13:45 Last Admin: 07/07/23 13:58 Dose: 4 mg Documented By: CLEMENT Ondansetron HCl (Ondansetron 4 Mg/2 Ml Inj) 4 mg IV NOW ONE Stop: 07/07/23 16:52 Last Admin: 07/07/23 16:54 Dose: 4 mg Documented By: THOMAS Vital Signs Vital signs: Vital Signs - 8 hr 07/07/23 11:37 07/07/23 11:54 07/07/23 11:54 Temperature 97 F L Pulse Rate 126 H 119 H Respiratory Rate 22 Blood Pressure 118/83 125/85 Pulse Oximetry 100 97 Oxygen Delivery Method Room Air 07/07/23 11:59 07/07/23 12:00 07/07/23 12:02 Temperature Pulse Rate 122 H 99 H Respiratory Rate Blood Pressure 131/78 Pulse Oximetry 98 Oxygen Delivery Method Room Air 07/07/23 12:30 07/07/23 12:30 07/07/23 13:00 Temperature Pulse Rate 114 H Respiratory Rate Blood Pressure 122/85 124/92 H Pulse Oximetry 100 Oxygen Delivery Method 07/07/23 13:00 07/07/23 13:30 07/07/23 13:42 Temperature Pulse Rate 111 H 109 H Respiratory Rate 16 11 L Blood Pressure 126/84 Pulse Oximetry 100 100 Oxygen Delivery Method Room Air 07/07/23 13:42 07/07/23 14:00 07/07/23 14:00 Temperature Pulse Rate 108 H 101 H Respiratory Rate 9 L 12 Blood Pressure 118/80 Pulse Oximetry 99 Oxygen Delivery Method 07/07/23 14:30 07/07/23 14:30 07/07/23 15:00 Temperature Pulse Rate 110 H 110 H Respiratory Rate 16 14 Blood Pressure 122/82 Pulse Oximetry 99 100 Oxygen Delivery Method Room Air Room Air 07/07/23 15:00 07/07/23 15:49 07/07/23 15:49 Temperature Pulse Rate 106 H Respiratory Rate Blood Pressure 112/83 114/82 Pulse Oximetry Oxygen Delivery Method 07/07/23 16:00 07/07/23 16:00 07/07/23 16:30 Temperature Pulse Rate 113 H Respiratory Rate 21 Blood Pressure 113/80 130/68 Pulse Oximetry 100 Oxygen Delivery Method 07/07/23 16:30 07/07/23 16:45 07/07/23 16:45 Temperature Pulse Rate 104 H 111 H Respiratory Rate 14 Blood Pressure 123/85 Pulse Oximetry 100 100 Oxygen Delivery Method 07/07/23 17:01 Temperature Pulse Rate 107 H Respiratory Rate 20 Blood Pressure Pulse Oximetry Oxygen Delivery Method MDM - Chest Pain <Samantha Rodriguez PA-C - Last Filed: 07/07/23 17:53> Lab Data 07/07/23 11:58 07/07/23 11:50 Labs: Lab Results 07/07/23 07/07/23 07/07/23 Range/Units 11:50 11:58 15:56 WBC 16.0 H (4.5-11.0) X10^3/uL RBC 4.38 (4.0-5.2) X10^6/uL Hgb 10.5 L (12.0-16.0) g/dL Hct 32.1 L (36-46) % MCV 73.2 L (80-100) fL MCH 23.9 L (26-34) PG MCHC 32.7 (30-36) % RDW 23.8 H (11.6-14.8) % Plt Count 488 H (150-400) X10^3/uL Neut % (Auto) Not Reportable Lymph % (Auto) Not Reportable Pacific % (Auto) Not Reportable Eos % (Auto) Not Reportable Baso % (Auto) Not Reportable Lymph # (Auto) Not Reportable [place] # (Auto) Not Reportable Baso # (Auto) Not Reportable Total Counted 100 Seg Neutrophils % 82.0 H (38-70) % Band Neutrophils % 10.0 H (3-7) % Lymphocytes % (Manual) 4.0 L (25-45) % Monocytes % (Manual) 4.0 (2-11) % Neutrophils # (Manual) 59419 H (2066-1009) /uL Platelet Estimate Adequate on smear RBC Morphology See below Anisocytosis 2+ H Microcytosis 1+ H PT 11.4 (10.1-12.7) SECONDS INR 1.0 (0.9-1.3) APTT 28 (26-36) SECONDS Sodium 125 L (137-145) mmol/L Potassium 3.8 (3.4-5.1) mmol/L Chloride 81 L (98-107) mmol/L Carbon Dioxide 33 H (22-32) mmol/L BUN 43 H (7-17) mg/dL Creatinine 0.63 (0.52-1.04) mg/dL Estimated GFR > 60 (>60) mL/min BUN/Creatinine Ratio 68.3 H (6-22) Glucose 162 H (70-100) mg/dL Calcium 9.6 (8.4-10.2) mg/dL Magnesium 2.4 H (1.6-2.3) mg/dL Total Bilirubin 0.8 (0.2-1.3) mg/dL AST 65 H (14-36) IU/L ALT 60 H (<35) IU/L Alkaline Phosphatase 384 H (38-126) U/L Total Creatine Kinase < 20 L (30-135) U/L Troponin I < 0.012 (0.01-0.034) ng/mL NT-Pro-B Natriuret Pep 47 (<125) pg/mL Total Protein 7.8 (6.3-8.2) g/dL Albumin 3.8 (3.5-5.0) g/dL Globulin 4.0 (1.7-4.1) g/dL Albumin/Globulin Ratio 1.0 (1.0-2.8) Lipase 30 (23-300) U/L Ur Bilirubin Confirm Negative (Negative) Urine RBC 0-1/hpf (0-5/HPF) Urine WBC 0-1/hpf (0-5/HPF) Ur Squamous Epith Cells 0-1 /hpf (0-5/HPF) Urine Bacteria Occasional (0-1) (None) Point of Care Testing Test Results Negative Urine Dip Bedside Urine Glucose Negative Bedside Urine Bilirubin + 1 Bedside Urine Ketone - Negative Urine Specific Doddridge 1.010 Bedside Urine Occult Blood - Negative Bedside Urine pH 6.0 Bedside Urine Protein +/- 15 Bedside Urine Urobilinogen - Negative Bedside Urine Nitrite - Negative Bedside Urine Leukocytes +/- 15 Esterase MDM Narrative Medical decision making narrative: 57-year-old female with hereditary diffuse gastric cancer syndrome, metastatic gastric cancer, pathology that shows poorly differentiated adenocarcinoma, associated peritoneal carcinomatosis, omental caking and malignant ascites presents to the ED with 2 days of severe epigastric pain, nausea. Patient is at a high risk for a PE versus bowel obstruction versus sepsis versus other. Will obtain labs, EKG, chest x-ray, coags, troponin, BNP, CT PE, CT abdomen pelvis. Will give Dilaudid for pain control. Patient states she is not currently nauseous, declines Zofran. Will reassess. Patient responded well to Dilaudid. Patient experienced nausea, was given Zofran. WBC elevated to 16. Other labs within normal limits. UA without UTI. EKG is sinus tachycardia with no acute ST-T change ST-T changes, no axis deviation. CTA shows no acute pulmonary emboli or metastatic disease in the chest. There are very subtle early bilateral infiltrates to suggest probable bilateral aspiration pneumonia. CT abdomen pelvis shows findings that are highly suspicious for diffuse serosal implant disease with resultant high-grade small bowel obstruction. Possible stomach serosal implant disease with a decompressed stomach. The esophagus is now markedly dilated and fluid filled which can either be secondary to small-bowel obstruction or extrinsic narrowing on the stomach with obstruction of passage from the esophagus into the stomach. There are noon large pelvic serosal implants with associated pelvic ascites. Dr. Buenrostro from general surgery was consulted who suggested either an NG tube for decompression versus a PEG tube for better comfort, admit to hospitalist and he will consult as needed. Discussed options with patient who wishes to go home. She states that the last time she had the NG tube put in, it made her feel worse and did not alleviate her symptoms. She declines the option of staying in the hospital and getting a PEG tube as well. Dr. Mario, patient's oncologist was consulted. He agrees that there is no other intervention needed at this time and patient is safe to go home. He has an appointment to see her on 07/11/2023. He agrees with treating the pneumonia with antibiotics that patient can take in syrup form, since patient is unable to tolerate solids. Discussed plan with patient, she agrees. Prescribed antibiotics to include Pseudomonas coverage. ED return precautions discussed with patient. She verbalized understanding. Medical records reviewed: Yes <Heena Topete MD - Last Filed: 07/07/23 17:55> Lab Data Labs: Lab Results 07/07/23 07/07/23 07/07/23 Range/Units 11:50 11:58 15:56 WBC 16.0 H (4.5-11.0) X10^3/uL RBC 4.38 (4.0-5.2) X10^6/uL Hgb 10.5 L (12.0-16.0) g/dL Hct 32.1 L (36-46) % MCV 73.2 L (80-100) fL MCH 23.9 L (26-34) PG MCHC 32.7 (30-36) % RDW 23.8 H (11.6-14.8) % Plt Count 488 H (150-400) X10^3/uL Neut % (Auto) Not Reportable Lymph % (Auto) Not Reportable Pacific % (Auto) Not Reportable Eos % (Auto) Not Reportable Baso % (Auto) Not Reportable Lymph # (Auto) Not Reportable [place] # (Auto) Not Reportable Baso # (Auto) Not Reportable Total Counted 100 Seg Neutrophils % 82.0 H (38-70) % Band Neutrophils % 10.0 H (3-7) % Lymphocytes % (Manual) 4.0 L (25-45) % Monocytes % (Manual) 4.0 (2-11) % Neutrophils # (Manual) 18065 H (0049-1132) /uL Platelet Estimate Adequate on smear RBC Morphology See below Anisocytosis 2+ H Microcytosis 1+ H PT 11.4 (10.1-12.7) SECONDS INR 1.0 (0.9-1.3) APTT 28 (26-36) SECONDS Sodium 125 L (137-145) mmol/L Potassium 3.8 (3.4-5.1) mmol/L Chloride 81 L (98-107) mmol/L Carbon Dioxide 33 H (22-32) mmol/L BUN 43 H (7-17) mg/dL Creatinine 0.63 (0.52-1.04) mg/dL Estimated GFR > 60 (>60) mL/min BUN/Creatinine Ratio 68.3 H (6-22) Glucose 162 H (70-100) mg/dL Calcium 9.6 (8.4-10.2) mg/dL Magnesium 2.4 H (1.6-2.3) mg/dL Total Bilirubin 0.8 (0.2-1.3) mg/dL AST 65 H (14-36) IU/L ALT 60 H (<35) IU/L Alkaline Phosphatase 384 H (38-126) U/L Total Creatine Kinase < 20 L (30-135) U/L Troponin I < 0.012 (0.01-0.034) ng/mL NT-Pro-B Natriuret Pep 47 (<125) pg/mL Total Protein 7.8 (6.3-8.2) g/dL Albumin 3.8 (3.5-5.0) g/dL Globulin 4.0 (1.7-4.1) g/dL Albumin/Globulin Ratio 1.0 (1.0-2.8) Lipase 30 (23-300) U/L Ur Bilirubin Confirm Negative (Negative) Urine RBC 0-1/hpf (0-5/HPF) Urine WBC 0-1/hpf (0-5/HPF) Ur Squamous Epith Cells 0-1 /hpf (0-5/HPF) Urine Bacteria Occasional (0-1) (None) Point of Care Testing Test Results Negative Urine Dip Bedside Urine Glucose Negative Bedside Urine Bilirubin + 1 Bedside Urine Ketone - Negative Urine Specific [place]dr[place] 1.010 Bedside Urine Occult Blood - Negative Bedside Urine pH 6.0 Bedside Urine Protein +/- 15 Bedside Urine Urobilinogen - Negative Bedside Urine Nitrite - Negative Bedside Urine Leukocytes +/- 15 Esterase Discharge Plan Departure Patient Disposition: Home Clinical Impression: Abdominal pain Qualifiers: Abdominal location: epigastric Qualified Code(s): R10.13 - Epigastric pain Pneumonia Qualifiers: Pneumonia type: aspiration pneumonia Instructions: Aspiration Pneumonia, DI for Small Bowel Obstruction Activity Restrictions/Additional Instructions: You were evaluated in the ED today for nausea, abdominal pain. Your CT of the chest shows pneumonia in both lungs for which you are being prescribed 2 antibiotics. Please take those as prescribed. The CT abdomen pelvis shows a high-grade bowel obstruction due to the cancer. We discussed the options of putting in an NG tube to help decompress the stomach or a PEG tube. Given that the NG tube was very uncomfortable the last time you had it, you declined it and you have elected to go home on antibiotics. I have consulted with Dr. Mario who also recommends you take the antibiotics and see him on July 11 as scheduled. Please continue taking your home pain medications as prescribed. Return to the ED if you have worsening symptoms, uncontrolled pain, persistent vomiting, fever, chills, chest pain, shortness of breath. Prescriptions: New azithromycin 200 mg/5 mL suspension for reconstitution See Rx Instructions .ROUTE .COMPLEX Qty: 40 0RF Rx Instructions: take 12.5 mL (500 mg) by mouth today (day 1), then 6.25 mL (250 mg) daily for 4 days (days 2-5) cefpodoxime 100 mg/5 mL suspension for reconstitution 200 mg PO BID 5 Days Qty: 100 0RF No Action morphine 30 mg tablet 30 mg PO Q6H PRN (Reason: pain) Qty: 120 0RF Rx Instructions: take 1 tablet four times per day for pain fluorouracil 2.5 gram/50 mL Solution 4,000 mg IV NOW Qty: 1 0RF Rx Instructions: continuous infusion over 46 hours mouthwashes Kit 30 ml MUCOUS MEMBRANE BID Qty: 30 1RF Rx Instructions: Swish, gargle and spit one to two teaspoonsfull for one minute. Repeat every six hours as needed. May be swallowed if esophageal involvement. scopolamine base 1 mg over 3 days Patch 3 Day 1 patch TRANSDERMAL Q3D Qty: 10 1RF lidocaine-prilocaine 2.5-2.5 % Cream 1 applic topical PRN PRN (Reason: Pain At Injection Site) Qty: 30 0RF Rx Instructions: Apply to the skin over the port 1 hours before the planned use of the port. Cover the cream with a small pieve of plastic wrap and leave in place until the port is accessed. ondansetron 8 mg Tablet,Disintegrating 8 mg PO Q8H Qty: 30 0RF prochlorperazine maleate [Compazine] 10 mg tablet 10 mg PO Q6H PRN (Reason: Nausea) Qty: 30 0RF scopolamine base 1 mg over 3 days Patch 3 Day 1 patch TRANSDERMAL Q3D PRN (Reason: Nausea And Vomiting) Qty: 10 0RF methadone 10 mg Tablet 30 mg PO TID PRN (Reason: cancer pain) Qty: 100 0RF amoxicillin-pot clavulanate 875-125 mg tablet 1 tab PO BID Qty: 20 0RF olanzapine [Zyprexa Zydis] 10 mg Tablet,Disintegrating 5 mg PO DAILY Qty: 30 0RF pantoprazole [Protonix] 40 mg tablet,delayed release (DR/EC) 40 mg PO DAILY Qty: 30 0RF Senna Plus 8.6-50 mg capsule 2 tab-cap PO BID Qty: 60 0RF hydrocortisone 1 % Cream 1 applic topical TID PRN (Reason: Itching) Qty: 100 0RF lidocaine 5 % Adhesive Patch,Medicated 1 ea topical BEDTIME Qty: 30 0RF hydroxyzine pamoate 25 mg Capsule 25 mg PO Q4HR PRN (Reason: Nausea) Qty: 100 0RF Referrals: Yaneli Brewer DO [Primary Care Provider] - Stand Alone Forms: Patient Portal/API ED Sign-out <Heena Topete MD - Last Filed: 07/07/23 17:55> [facility] I did not see this patient. I was available all times for consultation.
--- NOTE | 2023-07-07 15:52 | PC.NURSE ---
Patient presented to the ER with her port accessed and infusing TPN. Pt's brother states they need a heparin flush and NS flush since TPN administration is completed. Provider okayed disconnecting TPN and flushing with heparin.
[2023-07-07] MEDS: SODIUM CHLORIDE 0.9% 1,000 ML 1000 ML IV (16:04)
[2023-07-07 16:38] LABS: Ictotest Urine Negative (Negative)
[2023-07-07 16:52] LABS: Bacteria Urine Occasional (0-1); RBC Urine 0-1/HPF (0-5/HPF); Squamous Epithelial Cell Urine 0-1 /HPF (0-5/HPF); WBC Urine 0-1/HPF (0-5/HPF)
== END 2023-07-07 17:29 | disposition home or self-care (01) ==
PROVIDERS: Emergency Medicine; Emergency Provider Student in an Organized Health Care Education/Training Program; PCP Family Medicine
DX: J18.9 Pneumonia, unspecified organism (principal); R10.13 Epigastric pain; R07.9 Chest pain, unspecified; Z79.899 Other long term (current) drug therapy
CPT/HCPCS: 36415; 71045; 71275; 74177; 80053; 81003; 81015; 81025; 82550; 83690; 83735; 83880; 84484; 85007; 85025; 85610; 85730; 87077; 87086; 87186; 93005; 96361; 96374; 96375; 96376; 99284; J1170; J1642; J2405; Q9967

== ENCOUNTER 2023-07-09 10:40 | Emergency (ER) | payer OTHER, MEDICAID, SELFPAY ==
[2022-11-07 01:24] VITALS: BMI 30.5
[2023-07-09] VITALS (13 sets, daily range): BP systolic 121–135; BP diastolic 79–98; PULSE 111–128; RESP 16; TEMP 36.7–37.2; O2SAT 97–100; BMI 18.7
--- NOTE | 2023-07-09 10:48 | DI.RAD.S_ITS ---
PROCEDURE: XR KUB INDICATIONS: ABD PAIN TECHNIQUE: One view of the abdomen acquired. COMPARISON: [facility], CT, CT ABDOMEN PELVIS W CON, 07/07/2023, 13:12. FINDINGS: Surgical changes and devices: None. Bowel: Similar distended loops of small bowel. Soft tissues: No suspicious abdominal calcifications. Visualized solid organ contours appear normal in size. Bones: No suspicious bony lesions. IMPRESSION: Similar obstructive bowel gas pattern. Dictated by: Aryan Carrera M.D. on 07/09/2023 at 11:38 Approved by: Aryan Carrera M.D. on 07/09/2023 at 11:39
--- NOTE | 2023-07-09 10:55 | ED_ITS ---
HPI - Abdominal Pain General Chief Complaint: Abdominal Pain Stated Complaint: chest pain/abd pain Time Seen by Provider: 07/09/23 10:46 History of Present Illness HPI narrative: 27-year-old female with history of metastatic gastric cancer, small-bowel obstruction presents by private vehicle for abdominal pain. Patient was seen 2 days prior for same. She was diagnosed with a small-bowel obstruction. After conversation between patient and surgery the patient elected to go home with pain medications. She was also given antibiotics for incidental developing pneumonia. Patient went home, and has been taking her antibiotics, but her pain has continued to worsen and she is presenting again for evaluation. Patient is on methadone and as needed morphine for pain at home. Earlier this month patient was on hospice, however she decided to come off of hospice because she wanted to try another round of chemo, however she is not yet strong enough and she is currently on TPN to try and increase her nutrition. Related Data Previous Rx's Medication Instructions Recorded olanzapine 10 mg disintegrating 5 mg (1/2 x 10 mg) PO DAILY #30 11/02/22 tablet (Zyprexa Zydis) tabs pantoprazole 40 mg tablet,delayed 40 mg PO DAILY #30 tabs 11/02/22 release (Protonix) sennosides 8.6 mg-docusate sodium 2 tab-cap (2 x 8.6-50 mg) PO BID 11/02/22 50 mg capsule (Senna Plus) #60 caps hydrocortisone 1 % topical cream 1 applic topical TID PRN Itching 11/11/22 #100 grams hydroxyzine pamoate 25 mg capsule 25 mg PO Q4HR PRN Nausea #100 caps 11/11/22 lidocaine 5 % topical patch 1 ea topical BEDTIME #30 ea 11/11/22 morphine 30 mg immediate release 30 mg PO Q6H PRN pain #120 tabs 11/27/22 tablet fluorouracil 2.5 gram/50 mL 4,000 mg IV NOW CHEMOTHERAPY #1 12/17/22 intravenous solution device mouthwashes 30 ml mucous membrane BID mouth 12/23/22 sores #30 mL scopolamine base 1 mg over 3 days 1 patch transdermal Q3D #10 ea 01/14/23 transdermal patch lidocaine-prilocaine 2.5 %-2.5 % 1 applic topical PRN PRN Pain At 01/28/23 topical cream Injection Site #30 grams ondansetron 8 mg disintegrating 8 mg PO Q8H #30 tabs 02/20/23 tablet prochlorperazine maleate 10 mg 10 mg PO Q6H PRN Nausea #30 tabs 03/25/23 tablet (Compazine) scopolamine base 1 mg over 3 days 1 patch transdermal Q3D PRN Nausea 03/25/23 transdermal patch And Vomiting #10 ea methadone 10 mg tablet 30 mg (3 x 10 mg) PO TID PRN 03/26/23 cancer pain #100 tabs amoxicillin 875 mg-potassium 1 tab PO BID #20 tabs 04/25/23 clavulanate 125 mg tablet azithromycin 200 mg/5 mL oral See Rx Instructions PO .COMPLEX 07/07/23 suspension #40 mL cefpodoxime 100 mg/5 mL oral 200 mg (10 mL) PO BID 5 days #100 07/07/23 suspension mL Allergies Allergy/AdvReac Type Severity Reaction Status Date / Time No Known Drug Allergies Allergy Verified 07/07/23 12:46 Review of Systems Review of Systems Narrative: Negative except as noted above Patient History Medical History Healthy adult Family History Father Cancer Diabetes mellitus Grandmother Diabetes mellitus Father Cancer Aunt Cancer Social History (System 07/07/23 @ 12:46 by Yue Sahni) household members: family and children Smoking Status: Former smoker Smoking Status: Former smoker tobacco type: vaping alcohol intake frequency: holidays/special occasions only Substance Use Type: does not use Exam Initial Vital Signs Initial Vital Signs: Vital Signs Pulse Rate 127 H 07/09/23 12:12 Pulse Oximetry 99 07/09/23 12:12 Const: Awake, alert, no acute distress, cachectic Eyes: PERRL, EOMI, conjunctiva normal ENT: Atraumatic, dentition normal, mucous membranes moist Cardiac: regular rate, regular rhythm RESP: unlabored, clear bilaterally, no wheezing GI: [id number] distention, diffuse tenderness to deep palpation MSK: Atraumatic, full range of motion, pulses equal Skin: Warm, Dry, intact, no rashes Neuro: AO x3, CN II-XII grossly intact, moves all extremities Course Course Course Narrative: Patient returning for abdominal pain, known to have small-bowel obstruction with diffuse metastatic cancer, not an operative candidate for resection. We will check labs and we will order a KUB for assessment. Patient agreed to NG tube in attempt to relieve her pain. Orders Ordered: ED Orders 07/09/23 10:48 XR KUB Stat 07/09/23 12:10 CBC Auto Diff [Complete Blood Count AUTO DIFF] Stat CMP [Comprehensive Metabolic Panel] Stat Lactate (Lactic Acid) Stat 07/09/23 12:37 XR chest 1V Stat Discontinued Medications Hydromorphone HCl (Hydromorphone 1 Mg Inj) 1 mg IV NOW ONE Stop: 07/09/23 11:07 Last Admin: 07/09/23 11:43 Dose: Not Given Documented By: MAGGIE Hydromorphone HCl (Hydromorphone 2 Mg Tablet) 2 mg PO NOW ONE Stop: 07/09/23 11:43 Last Admin: 07/09/23 11:44 Dose: 2 mg Documented By: MAGGIE Lidocaine HCl (Lidocaine 1% (Pf) 5 Ml) 5 ml INJ NOW ONE Stop: 07/09/23 13:46 Last Admin: 07/09/23 12:40 Dose: 5 ml Documented By: TEP Reevaluation(s) Reevaluation #1: Laboratory work reviewed. Discussion with hospitalist service, general surgery, as well as Dr. Mario, the patient's oncologist. Per General surgery there is nothing operative to do and patient is not a surgical candidate. There is no ability to place a PEG tube to relieve the patient's symptoms given the nature and location of her obstruction. Oncology stated that patient has an appointment in 2 days in their office and he will discuss going back on to hospice as further intervention is highly likely to be futile. Patient reassessed, nearly 1 L of gastric contents has been suctioned and patient reports near resolution of her pain. She states that last time she had an NG- tube placed she had relief for several weeks. She has plenty of pain medications at home and we will make sure that she follows up with her oncologist appointment on Friday. ED return precautions discussed at bedside. Patient expressed understanding of the plan and is in agreement at this time. All questions answered at the time of discharge. Vital Signs Vital signs: Vital Signs - 8 hr 07/09/23 12:12 07/09/23 12:30 07/09/23 12:39 Temperature Pulse Rate 127 H 125 H 128 H Respiratory Rate Blood Pressure 124/98 H Pulse Oximetry 99 99 99 07/09/23 12:39 07/09/23 13:00 07/09/23 13:00 Temperature Pulse Rate 118 H Respiratory Rate Blood Pressure 134/89 128/84 Pulse Oximetry 97 07/09/23 13:26 07/09/23 13:26 07/09/23 13:30 Temperature 98.1 F Pulse Rate 119 H 119 H Respiratory Rate 16 Blood Pressure 123/82 Pulse Oximetry 97 97 07/09/23 13:30 07/09/23 13:45 07/09/23 13:45 Temperature Pulse Rate 117 H Respiratory Rate Blood Pressure 135/87 121/79 Pulse Oximetry 97 07/09/23 14:00 07/09/23 14:00 07/09/23 14:15 Temperature Pulse Rate 111 H Respiratory Rate Blood Pressure 122/81 129/86 Pulse Oximetry 97 07/09/23 14:15 07/09/23 14:30 07/09/23 14:30 Temperature Pulse Rate 113 H 119 H Respiratory Rate Blood Pressure 124/86 Pulse Oximetry 98 98 07/09/23 14:45 07/09/23 14:45 07/09/23 15:00 Temperature Pulse Rate 112 H Respiratory Rate Blood Pressure 128/85 127/86 Pulse Oximetry 100 07/09/23 15:00 Temperature Pulse Rate 114 H Respiratory Rate Blood Pressure Pulse Oximetry 99 MDM - Abdominal Pain Lab Data 07/09/23 12:10 07/09/23 12:10 Labs: Lab Results 07/09/23 07/09/23 Range/Units 12:10 14:34 WBC 14.0 H (4.5-11.0) X10^3/uL RBC 4.18 (4.0-5.2) X10^6/uL Hgb 9.9 L (12.0-16.0) g/dL Hct 31.2 L (36-46) % MCV 74.5 L (80-100) fL MCH 23.7 L (26-34) PG MCHC 31.8 (30-36) % RDW 24.0 H (11.6-14.8) % Plt Count 484 H (150-400) X10^3/uL Neut % (Auto) 90.9 H (50-75) % Lymph % (Auto) 5.4 L (25-40) % Rogers % (Auto) 3.6 (3-14) % Eos % (Auto) 0.0 L (2-4) % Baso % (Auto) 0.1 (0-2) % Neut # (Auto) 59947 H (4810-0585) /uL Lymph # (Auto) 700 L (1689-5033) /uL Rogers # (Auto) 500 (0-900) /uL Eos # (Auto) 0 (0-450) /uL Baso # (Auto) 0 (0-100) /uL RBC Morphology See below Hypochromasia 1+ H Anisocytosis 3+ H Microcytosis 1+ H Sodium 129 L (137-145) mmol/L Potassium 3.4 (3.4-5.1) mmol/L Chloride 84 L (98-107) mmol/L Carbon Dioxide 35 H (22-32) mmol/L BUN 34 H (7-17) mg/dL Creatinine 0.51 L (0.52-1.04) mg/dL Estimated GFR > 60 (>60) mL/min BUN/Creatinine Ratio 66.7 H (6-22) Glucose 142 H (70-100) mg/dL Lactate 2.6 H 2.0 (0.7-2.1) mmol/L Calcium 9.4 (8.4-10.2) mg/dL Total Bilirubin 1.1 (0.2-1.3) mg/dL AST 69 H (14-36) IU/L ALT 66 H (<35) IU/L Alkaline Phosphatase 355 H (38-126) U/L Total Protein 7.6 (6.3-8.2) g/dL Albumin 3.6 (3.5-5.0) g/dL Globulin 4.0 (1.7-4.1) g/dL Albumin/Globulin Ratio 0.9 L (1.0-2.8) Discharge Plan Departure Patient Disposition: Home Clinical Impression: Complete obstruction of small intestine, Metastatic cancer Instructions: DI for Small Bowel Obstruction Prescriptions: No Action morphine 30 mg tablet 30 mg PO Q6H PRN (Reason: pain) Qty: 120 0RF Rx Instructions: take 1 tablet four times per day for pain fluorouracil 2.5 gram/50 mL Solution 4,000 mg IV NOW Qty: 1 0RF Rx Instructions: continuous infusion over 46 hours mouthwashes Kit 30 ml MUCOUS MEMBRANE BID Qty: 30 1RF Rx Instructions: Swish, gargle and spit one to two teaspoonsfull for one minute. Repeat every six hours as needed. May be swallowed if esophageal involvement. scopolamine base 1 mg over 3 days Patch 3 Day 1 patch TRANSDERMAL Q3D Qty: 10 1RF lidocaine-prilocaine 2.5-2.5 % Cream 1 applic topical PRN PRN (Reason: Pain At Injection Site) Qty: 30 0RF Rx Instructions: Apply to the skin over the port 1 hours before the planned use of the port. Cover the cream with a small pieve of plastic wrap and leave in place until the port is accessed. ondansetron 8 mg Tablet,Disintegrating 8 mg PO Q8H Qty: 30 0RF prochlorperazine maleate [Compazine] 10 mg tablet 10 mg PO Q6H PRN (Reason: Nausea) Qty: 30 0RF scopolamine base 1 mg over 3 days Patch 3 Day 1 patch TRANSDERMAL Q3D PRN (Reason: Nausea And Vomiting) Qty: 10 0RF methadone 10 mg Tablet 30 mg PO TID PRN (Reason: cancer pain) Qty: 100 0RF amoxicillin-pot clavulanate 875-125 mg tablet 1 tab PO BID Qty: 20 0RF olanzapine [Zyprexa Zydis] 10 mg Tablet,Disintegrating 5 mg PO DAILY Qty: 30 0RF pantoprazole [Protonix] 40 mg tablet,delayed release (DR/EC) 40 mg PO DAILY Qty: 30 0RF Senna Plus 8.6-50 mg capsule 2 tab-cap PO BID Qty: 60 0RF hydrocortisone 1 % Cream 1 applic topical TID PRN (Reason: Itching) Qty: 100 0RF lidocaine 5 % Adhesive Patch,Medicated 1 ea topical BEDTIME Qty: 30 0RF hydroxyzine pamoate 25 mg Capsule 25 mg PO Q4HR PRN (Reason: Nausea) Qty: 100 0RF azithromycin 200 mg/5 mL suspension for reconstitution See Rx Instructions .ROUTE .COMPLEX Qty: 40 0RF Rx Instructions: take 12.5 mL (500 mg) by mouth today (day 1), then 6.25 mL (250 mg) daily for 4 days (days 2-5) cefpodoxime 100 mg/5 mL suspension for reconstitution 200 mg PO BID 5 Days Qty: 100 0RF Referrals: Yaneli Brewer DO [Primary Care Provider] - Stand Alone Forms: Patient Portal/API
[2023-07-09] MEDS: HYDROMORPHONE 2 MG TABLET PO (11:44)
[2023-07-09 12:20] LABS: Add Manual Diff / Slide Review NO; Basophils Absolute Auto 0 /uL (0-100); Basophils Percent Auto 0.1 % (0-2); Eosinophils Absolute Auto 0 /uL (0-450); Hematocrit 31.2 % (36-46); Hemoglobin 9.9 g/dL (12.0-16.0); Lymphocytes Absolute Auto 700 /uL (1100-4500); Lymphocytes Percent Auto 5.4 % (25-40); Mean Corpuscular HGB Conc 31.8 % (30-36); Mean Corpuscular Hemoglobin 23.7 PG (26-34); Mean Corpuscular Volume 74.5 fL (80-100); Monocytes Absolute Auto 500 /uL (0-900); Monocytes Percent Auto 3.6 % (3-14); Neutrophils Absolute Auto 12700 /uL (1500-7000); Neutrophils Percent Auto 90.9 % (50-75); Platelet Count 484 X10^3/uL (150-400); Red Blood Cell Count 4.18 X10^6/uL (4.0-5.2)
[2023-07-09 12:29] LABS: Alanine Aminotransferase 66 IU/L (<35); Albumin 3.6 g/dL (3.5-5.0); Albumin Globulin Ratio 0.9 (1.0-2.8); Alkaline Phosphatase 355 U/L (38-126); Aspartate Aminotransferase 69 IU/L (14-36); BUN Creatinine Ratio 66.7 (6-22); Bilirubin Total 1.1 mg/dL (0.2-1.3); Blood Urea Nitrogen 34 mg/dL (7-17); Calcium 9.4 mg/dL (8.4-10.2); Carbon Dioxide 35 mmol/L (22-32); Chloride 84 mmol/L (98-107); Estimated Glomerular Filt Rate > 60 mL/min (>60); Glucose 142 mg/dL (70-100); HEMOLYSIS < 15 (0-50); Lactate (Lactic Acid) 2.6 mmol/L (0.7-2.1); Potassium 3.4 mmol/L (3.4-5.1); Sodium 129 mmol/L (137-145); Total Protein 7.6 g/dL (6.3-8.2)
--- NOTE | 2023-07-09 12:37 | DI.RAD.S_ITS ---
PROCEDURE: XR CHEST 1V INDICATIONS: NG tube placement confirmation TECHNIQUE: One view of the chest was acquired. COMPARISON: [facility], CR, XR CHEST 1V, 07/07/2023, 11:41. [facility], CR, XR CHEST 1V, 04/25/2023, 11:43. FINDINGS: Surgical changes and devices: Nasogastric tube is seen with the tip in the stomach, however the side port is in the distal esophagus. A right chest wall port is well positioned. Lungs and pleura: Lungs are clear. No pleural effusions or pneumothorax. Mediastinum: Mediastinal contours appear normal. Heart size is normal. Bones and chest wall: No suspicious bony lesions. Overlying soft tissues appear unremarkable. IMPRESSION: Portable chest within normal limits for age. Dictated by: Herman Cesar M.D. on 07/09/2023 at 12:59 Approved by: Herman Cesar M.D. on 07/09/2023 at 13:07
[2023-07-09 12:39] LABS: Anisocytosis 3+; Microcytosis 1+
[2023-07-09 12:40] LABS: Hypochromasia 1+
[2023-07-09] MEDS: LIDOCAINE 1% (PF) 5 ML INJ (12:40)
--- NOTE | 2023-07-09 12:45 | PC.NURSE ---
NG tube placed, 18f to intermittent suction. pt tolerated procedure well.
[2023-07-09 14:14] LABS: Reflexed Lactate in 2 Hours Y
--- NOTE | 2023-07-09 15:18 | PC.NURSE ---
NG dc'd with 3/4 container full of brown thick liquid. Pt reports pain 0.
== END 2023-07-09 15:25 | disposition home or self-care (01) ==
PROVIDERS: Emergency Provider Emergency Medicine; PCP Family Medicine
DX: K56.601 Complete intestinal obstruction, unspecified as to cause (principal); C78.89 Secondary malignant neoplasm of other digestive organs; R79.89 Other specified abnormal findings of blood chemistry; Z79.899 Other long term (current) drug therapy
CPT/HCPCS: 71045; 74018; 80053; 83605; 85025; 99284

== ENCOUNTER 2023-07-13 23:56 | Inpatient (IN) | payer OTHER, MEDICAID, SELFPAY ==
[2022-11-07 01:24] VITALS: BMI 30.5
[2023-07-14] VITALS (33 sets, daily range): BP systolic 98–123; BP diastolic 58–74; PULSE 104–121; RESP 16–24; TEMP 36.4–37.1; O2SAT 85–100; BMI 19.6
--- NOTE | 2023-07-14 00:16 | ED.SOB ---
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 This is her 3rd visit to the ED this week she initially was seen and evaluated on 07/07/[address] scan ultimately diagnosed with pneumonia but no pulmonary embolism she was having shortness of breath at that time as well she is not currently having any abdominal pain. Patient is not currently on chemotherapy last chemotherapy was about 3 months ago. She was admitted June 19 through the with a bowel obstruction she was discharged to help hospice care ever on July 01 decided to revoke hospice and would like to continue active treatment. Waiting for different medication. She is on continuous methadone for pain she is ongoing nausea vomiting she has continuous TPN she takes Haldol. She reports that she is unable to lay down because she can not breathe she denies any fever she might be having a productive cough. She is really short of breath all the time. She is not having any worsening or new abdominal pain now. She really is unable to keep her eyes been right now she says she is exhausted she has not been able to sleep due to difficulty breathing Related Data Previous Rx's Medication Instructions Recorded olanzapine 10 mg disintegrating 5 mg (1/2 x 10 mg) PO DAILY #30 11/02/22 tablet (Zyprexa Zydis) tabs pantoprazole 40 mg tablet,delayed 40 mg PO DAILY #30 tabs 11/02/22 release (Protonix) sennosides 8.6 mg-docusate sodium 2 tab-cap (2 x 8.6-50 mg) PO BID 11/02/22 50 mg capsule (Senna Plus) #60 caps hydrocortisone 1 % topical cream 1 applic topical TID PRN Itching 11/11/22 #100 grams hydroxyzine pamoate 25 mg capsule 25 mg PO Q4HR PRN Nausea #100 caps 11/11/22 lidocaine 5 % topical patch 1 ea topical BEDTIME #30 ea 11/11/22 morphine 30 mg immediate release 30 mg PO Q6H PRN pain #120 tabs 11/27/22 tablet fluorouracil 2.5 gram/50 mL 4,000 mg IV NOW CHEMOTHERAPY #1 12/17/22 intravenous solution device mouthwashes 30 ml mucous membrane BID mouth 12/23/22 sores #30 mL scopolamine base 1 mg over 3 days 1 patch transdermal Q3D #10 ea 01/14/23 transdermal patch lidocaine-prilocaine 2.5 %-2.5 % 1 applic topical PRN PRN Pain At 01/28/23 topical cream Injection Site #30 grams ondansetron 8 mg disintegrating 8 mg PO Q8H #30 tabs 02/20/23 tablet prochlorperazine maleate 10 mg 10 mg PO Q6H PRN Nausea #30 tabs 03/25/23 tablet (Compazine) scopolamine base 1 mg over 3 days 1 patch transdermal Q3D PRN Nausea 03/25/23 transdermal patch And Vomiting #10 ea methadone 10 mg tablet 30 mg (3 x 10 mg) PO TID PRN 03/26/23 cancer pain #100 tabs amoxicillin 875 mg-potassium 1 tab PO BID #20 tabs 04/25/23 clavulanate 125 mg tablet azithromycin 200 mg/5 mL oral See Rx Instructions PO .COMPLEX 07/07/23 suspension #40 mL Allergies Allergy/AdvReac Type Severity Reaction Status Date / Time No Known Drug Allergies Allergy Verified 07/07/23 12:46 Patient History Medical History Healthy adult Family History Father Cancer Diabetes mellitus Grandmother Diabetes mellitus Father Cancer Aunt Cancer Social History household members: family and children Smoking Status: Former smoker Smoking Status: Former smoker tobacco type: vaping alcohol intake frequency: holidays/special occasions only Substance Use Type: does not use Exam Initial Vital Signs Initial Vital Signs: Vital Signs Temperature 98.5 F 07/14/23 00:00 Pulse Rate 118 H 07/14/23 00:00 Respiratory Rate 24 07/14/23 00:00 Blood Pressure 116/70 07/14/23 00:00 Pulse Oximetry 98 07/14/23 00:00 Oxygen Delivery Method Room Air 07/14/23 00:00 GENERAL: Chronically ill weak thin 20-year-old HEENT: Head atraumatic,EOMI, pupils reactive, face symmetric, moist mucous membranes CARDIOVASCULAR: Tachycardic regular no murmurs RESPIRATORY: Breath sounds equal bilaterally, no wheezes rales or rhonchi. ABDOMEN: Soft, mild distention EXTREMITIES: Normal range of motion, no clubbing or edema. Neurovascularly intact NEUROLOGICAL: Alert and oriented x4. SKIN: Warm, dry, no laceration, no petechiae, no rashes or lesions. Course Orders Ordered: ED Orders 07/14/23 00:19 CT angio chest PE protocol Stat EKG-12 Lead Stat 07/14/23 00:40 Complete Blood Count AUTO DIFF Stat Comprehensive Metabolic Panel Stat Lactate (Lactic Acid) Stat Lipase Stat NT-proBNP (BNP-Adult 18+) Stat PTT Partial Thromboplastin Trevin Stat Prothrombin Time INR Stat Troponin & CK Cardiac Panel Stat 07/14/23 01:09 Respiratory Panel (Film Array) Stat 07/14/23 01:24 Packed Cells Stat Type and Screen Stat 07/14/23 01:55 Blood Culture Stat 07/14/23 02:33 Education, smoking cessation ONGOING 07/14/23 02:36 Consult to Dietitian, Adult Routine 07/14/23 02:37 Consult to Discharge Planning Routine 07/14/23 07:00 Complete Blood Count AUTO DIFF DAILY 07/15/23 07:00 Complete Blood Count AUTO DIFF DAILY 07/16/23 07:00 Complete Blood Count AUTO DIFF DAILY Albuterol (Albuterol 2.5 Mg/3 Ml Neb (Adult)) 2.5 mg INH [id number] PRN PRN Reason: Dyspnea Benzocaine (Benzocaine/Menthol 1 Micheal Pkt) 1 each PO Q4HR PRN PRN Reason: Sore Throat Enoxaparin Sodium (Enoxaparin 40 Mg/0.4 Ml Syringe) 40 mg SUBCUT DAILY [facility] Hydrocortisone (Hydrocortisone 1% Cream 28 Gm) 1 applic TOP TID PRN PRN Reason: Itching Hydromorphone HCl (Hydromorphone 0.5 Mg Inj) 0.5 mg IV Q2H PRN PRN Reason: Pain, Severe (7-10) Hydroxyzine Pamoate (Hydroxyzine Pamoate 25 Mg Capsule) 25 mg PO Q4HR PRN PRN Reason: Nausea Piperacillin Sod/Tazobactam (Sod 3.375 gm/ Sodium Chloride) 100 mls @ 25 mls/hr IV Q8H [facility] Vancomycin HCl (Vancomycin) 750 mg in 150 mls @ 150 mls/hr IV Q12H [facility] Lorazepam (Lorazepam 2 Mg/Ml Inj) 0.25 mg IV Q4HR PRN PRN Reason: Anxiety Melatonin (Melatonin 3 Mg Tablet) 9 mg PO BEDTIME PRN PRN Reason: insomnia Methadone HCl (Methadone 10 Mg Tablet) 30 mg PO TID PRN PRN Reason: cancer pain Morphine Sulfate (Morphine Er 15 Mg Tablet) 30 mg PO Q6H PRN PRN Reason: Pain, Severe (7-10) Naloxone HCl (Naloxone 0.4 Mg/Ml Vial) 0.2 mg IV Q2MIN PRN PRN Reason: Opiate Reversal Non-Formulary Medication (Prochlorperazine Maleate [Compazine]) 10 mg PO Q6H PRN PRN Reason: Nausea Non-Formulary Medication (Sennosides-Docusate Sodium [Senna Plus]) 2 tab-cap PO BID [facility] Olanzapine (Olanzapine Odt 10 Mg Tab) 5 mg PO DAILY [facility] Ondansetron HCl (Ondansetron 4 Mg Odt) 8 mg PO Q8H [facility] Ondansetron HCl (Ondansetron 4 Mg/2 Ml Inj) 4 mg IV Q8HR PRN PRN Reason: Nausea And Vomiting Pantoprazole Sodium (Pantoprazole 40 Mg Vial) 40 mg IV BID [facility] Promethazine HCl (Promethazine 25 Mg Tablet) 25 mg PO Q4HR PRN PRN Reason: Nausea Scopolamine (Scopolamine 1 Patch) 1 patch TOP Q3D PRN PRN Reason: Nausea And Vomiting Discontinued Medications Albuterol (Albuterol 2.5 Mg/3 Ml Neb (Adult)) 2.5 mg INH NOW ONE Stop: 07/14/23 00:19 Last Admin: 07/14/23 00:33 Dose: 2.5 mg Documented By: REBECCA Hydromorphone HCl (Hydromorphone 1 Mg Inj) 1 mg IV NOW ONE Stop: 07/14/23 02:23 Last Admin: 07/14/23 02:36 Dose: 1 mg Piperacillin Sod/Tazobactam (Sod 4.5 gm/ Sodium Chloride) 100 mls @ 200 mls/hr IV NOW ONE Stop: 07/14/23 01:42 Last Admin: 07/14/23 02:09 Dose: 200 mls/hr Documented By: CHANTE Vancomycin HCl (Vancomycin) 750 mg in 150 mls @ 150 mls/hr IV NOW ONE Stop: 07/14/23 02:40 Last Admin: 07/14/23 02:54 Dose: 150 mls/hr Vancomycin HCl 1,250 mg/ (Sodium Chloride) 100 mls @ 100 mls/hr IV Q12H [facility] Pantoprazole Sodium (Pantoprazole Dr 40 Mg Tablet) 40 mg PO DAILY [facility] Vital Signs Vital signs: Vital Signs - 8 hr 07/14/23 00:00 07/14/23 00:34 07/14/23 01:08 Temperature 98.5 F Pulse Rate 118 H Respiratory Rate 24 Blood Pressure 116/70 117/72 Pulse Oximetry 98 97 Oxygen Delivery Method Room Air Room Air 07/14/23 01:08 07/14/23 01:30 07/14/23 01:30 Temperature Pulse Rate 120 H 119 H Respiratory Rate Blood Pressure 104/58 L Pulse Oximetry 100 99 Oxygen Delivery Method 07/14/23 02:00 Temperature Pulse Rate 119 H Respiratory Rate Blood Pressure Pulse Oximetry 96 Oxygen Delivery Method MDM - SOB/Dyspnea Lab Data 07/14/23 00:40 07/14/23 00:40 Labs: Lab Results 07/14/23 07/14/23 07/14/23 Range/Units 00:40 01:09 01:24 WBC 20.2 H (4.5-11.0) X10^3/uL RBC 3.10 L (4.0-5.2) X10^6/uL Hgb 7.5 L (12.0-16.0) g/dL Hct 22.9 L (36-46) % MCV 73.6 L (80-100) fL MCH 24.2 L (26-34) PG MCHC 32.9 (30-36) % RDW 24.6 H (11.6-14.8) % Plt Count 438 H (150-400) X10^3/uL Neut % (Auto) Not Reportable Lymph % (Auto) Not Reportable Todd % (Auto) Not Reportable Eos % (Auto) Not Reportable Baso % (Auto) Not Reportable Lymph # (Auto) Not Reportable Todd # (Auto) Not Reportable Baso # (Auto) Not Reportable Total Counted 100 Seg Neutrophils % 84.0 H (38-70) % Band Neutrophils % 3.0 (3-7) % Lymphocytes % (Manual) 11.0 L (25-45) % Monocytes % (Manual) 2.0 (2-11) % Neutrophils # (Manual) 85069 H (6512-6473) /uL RBC Morphology See below Anisocytosis 2+ H Microcytosis 1+ H PT 12.7 (10.1-12.7) SECONDS INR 1.1 (0.9-1.3) APTT 26 (26-36) SECONDS Sodium 121 L (137-145) mmol/L Potassium 3.6 (3.4-5.1) mmol/L Chloride 80 L (98-107) mmol/L Carbon Dioxide 31 (22-32) mmol/L BUN 41 H (7-17) mg/dL Creatinine 0.60 (0.52-1.04) mg/dL Estimated GFR > 60 (>60) mL/min BUN/Creatinine Ratio 68.3 H (6-22) Glucose 120 H (70-100) mg/dL Lactate 2.3 H (0.7-2.1) mmol/L Calcium 8.8 (8.4-10.2) mg/dL Total Bilirubin 1.2 (0.2-1.3) mg/dL AST 51 H (14-36) IU/L ALT 68 H (<35) IU/L Alkaline Phosphatase 338 H (38-126) U/L Total Creatine Kinase < 20 L (30-135) U/L Troponin I < 0.012 (0.01-0.034) ng/mL NT-Pro-B Natriuret Pep 293 H (<125) pg/mL Total Protein 6.7 (6.3-8.2) g/dL Albumin 3.0 L (3.5-5.0) g/dL Globulin 3.7 (1.7-4.1) g/dL Albumin/Globulin Ratio 0.8 L (1.0-2.8) Lipase 13 L D (23-300) U/L Chlamy pneumoniae PCR Not detected (Not Detect) Adenovirus (PCR) Not detected (Not Detect) B.parapertussis DNA PCR Not detected (Not Detecte) Coronavirus OC43 (PCR) Not detected (Not Detect) Coronavirus HKU1 (PCR) Not detected (Not Detect) Coronavirus 229E (PCR) Not detected (Not Detect) SARS-CoV-2 (PCR) Not detected (Not Detecte) Coronavirus NL63 (PCR) Not detected (Not Detect) Human Metapneumovir PCR Not detected (Not Detect) Influenza Type A (PCR) Not detected (Not Detect) Influenza Type B (PCR) Not detected (Not Detect) M. pneumoniae (PCR) Not detected (Not Detect) Parainfluenza 1 (PCR) Not detected (Not Detect) Parainfluenza 2 (PCR) Not detected (Not Detect) Parainfluenza 3 (PCR) Not detected (Not Detect) Parainfluenza 4 (PCR) Detected (Not Detect) RSV (PCR) Not detected (Not Detect) Entero/Rhino (PCR) Not detected (Not Detect) Blood Type B Positive Antibody Screen Negative Crossmatch See Detail Imaging Data CT scan - chest: Radiologist's Impression: PROCEDURE: CT ANGIO CHEST PE PROTOCOL INDICATIONS: short of breath metastatic cancer TECHNIQUE: After the administration of intravenous contrast, 2 mm thick sections acquired from the pulmonary apices to the posterior costophrenic angles. 3-dimensional maximum intensity projection (MIP) coronal and sagittal reformats were then acquired through the thorax. For radiation dose reduction, the following was used: automated exposure control, adjustment of mA and/or kV according to patient size. COMPARISON: [facility], [place], CT ANGIO CHEST PE PROTOCOL, 07/07/2023, 13:12. FINDINGS: Image quality: Excellent. Pulmonary arteries: Pulmonary arteries are normal in size, and demonstrate no intraluminal filling defects to suggest central pulmonary embolism. Lungs and pleura: There is interval significant worsening of bilateral lung aeration with extensive interstitial opacities scattered throughout bilateral lung jerry more notably in left upper and lower lobes . No pleural effusions or pneumothorax. Central and peripheral airways are patent. Mediastinum: Heart size is normal, without pericardial effusion. No mediastinal or hilar adenopathy. Thoracic aorta is normal in caliber and enhancement. Markedly distended esophagus is again seen extending to the level of GE junction. Bones and chest wall: Right chest wall Port-A-Cath tip is in SVC. No suspicious bony lesions. Ribs and thoracic spine appear intact throughout. Thyroid gland is within normal limits. No axillary or supraclavicular adenopathy. Abdomen: Small amount of ascites fluid in visualized upper abdomen is seen. Severe hepatic steatosis and hepatomegaly is noted. IMPRESSION: 1. No evidence of pulmonary emboli. 2. Interval development of extensive bilateral pulmonary infiltrates worse on the left side and is concerning for aspiration pneumonia. No pleural effusion or pneumothorax. 3. Again noted is markedly distended esophageal lumen with air-fluid level extending to the level of GE junction . 4. Ascites fluid is seen in visualized upper abdomen. 5. No gross mediastinal or hilar lymphadenopathy. 6. Severe Paddock steatosis. Hepatomegaly. Dictated by: Mando Moctezuma M.D. on 07/14/2023 at 1:20 Approved by: Mando Moctezuma M.D. on 07/14/2023 at 1:26 ECG Data Interpretation: Normal sinus rhythm rate 121 CO interval 118 QRS [address] changes no T-wave inversions MDM Narrative Medical decision making narrative: Patient 28-year-old female who has end-stage gastric adenoma presenting today with increasing weakness and shortness of breath. She has an extremely weak cough. She denies absolutely any sort of fever. She is found to have increasing leukocytosis of 20 anemia 7.5, hematocrit 22.9 previously on July for she would a hemoglobin of 9.9 and hematocrit 31.2, sodium today 121 previously 129, respiratory panel positive for parainfluenza virus CT angio chest does not show pulmonary emboli but shows increasing patchy infiltrate consistent with aspiration pneumonia Patient has multiple she is today mucous complaints increasing shortness of breath inability to sleep. I suspect increasing shortness of breath is probably multifactorial secondary to likely aspiration pneumonia which has gotten worse, anemia, parainfluenza virus as well. She has blood cultures pending she is given Zosyn and vancomycin. 1 unit of packed red blood cells also has been ordered for her. She is extremely sleepy she easily aroused not having any pain. According to notes she was post knee with Oncology and have further discussions hospice patient and family under impression that they are waiting for different medication. However previous oncology report and last ED note that any further care may be futile. Today is her birthday trying to be in good spirits. Dr Page, accepts patient Discharge Plan Departure Patient Disposition: Admitted As Inpatient Clinical Impression: Aspiration pneumonia, Parainfluenza virus bronchitis, Anemia, Acute hyponatremia Admit Date/Time: 07/14/23 02:40 Admit Provider: Ryan Page
--- NOTE | 2023-07-14 00:19 | DI.CT.S_ITS ---
PROCEDURE: CT ANGIO CHEST PE PROTOCOL INDICATIONS: short of breath metastatic cancer TECHNIQUE: After the administration of intravenous contrast, 2 mm thick sections acquired from the pulmonary apices to the posterior costophrenic angles. 3-dimensional maximum intensity projection (MIP) coronal and sagittal reformats were then acquired through the thorax. For radiation dose reduction, the following was used: automated exposure control, adjustment of mA and/or kV according to patient size. COMPARISON: [facility], [place], CT ANGIO CHEST PE PROTOCOL, 07/07/2023, 13:12. FINDINGS: Image quality: Excellent. Pulmonary arteries: Pulmonary arteries are normal in size, and demonstrate no intraluminal filling defects to suggest central pulmonary embolism. Lungs and pleura: There is interval significant worsening of bilateral lung aeration with extensive interstitial opacities scattered throughout bilateral lung jerry more notably in left upper and lower lobes . No pleural effusions or pneumothorax. Central and peripheral airways are patent. Mediastinum: Heart size is normal, without pericardial effusion. No mediastinal or hilar adenopathy. Thoracic aorta is normal in caliber and enhancement. Markedly distended esophagus is again seen extending to the level of GE junction. Bones and chest wall: Right chest wall Port-A-Cath tip is in SVC. No suspicious bony lesions. Ribs and thoracic spine appear intact throughout. Thyroid gland is within normal limits. No axillary or supraclavicular adenopathy. Abdomen: Small amount of ascites fluid in visualized upper abdomen is seen. Severe hepatic steatosis and hepatomegaly is noted. IMPRESSION: 1. No evidence of pulmonary emboli. 2. Interval development of extensive bilateral pulmonary infiltrates worse on the left side and is concerning for aspiration pneumonia. No pleural effusion or pneumothorax. 3. Again noted is markedly distended esophageal lumen with air-fluid level extending to the level of GE junction . 4. Ascites fluid is seen in visualized upper abdomen. 5. No gross mediastinal or hilar lymphadenopathy. 6. Severe Paddock steatosis. Hepatomegaly. Dictated by: Mando Moctezuma M.D. on 07/14/2023 at 1:20 Approved by: Mando Moctezuma M.D. on 07/14/2023 at 1:26
[2023-07-14] MEDS: ALBUTEROL 2.5 MG/3 ML NEB (ADULT) INH (00:33)
[2023-07-14 00:58] LABS: INR 1.1 (0.9-1.3); Prothrombin Time 12.7 SECONDS (10.1-12.7)
[2023-07-14 01:00] LABS: PTT Partial Thromboplastin Tim 26 SECONDS (26-36)
[2023-07-14 01:01] LABS: Hematocrit 22.9 % (36-46); Hemoglobin 7.5 g/dL (12.0-16.0); Mean Corpuscular HGB Conc 32.9 % (30-36); Mean Corpuscular Hemoglobin 24.2 PG (26-34); Mean Corpuscular Volume 73.6 fL (80-100); Platelet Count 438 X10^3/uL (150-400); Red Cell Distribution Width 24.6 % (11.6-14.8); White Blood Cell Count 20.2 X10^3/uL (4.5-11.0)
[2023-07-14 01:02] LABS: Add Manual Diff / Slide Review YES
[2023-07-14 01:03] LABS: Alanine Aminotransferase 68 IU/L (<35); Albumin Globulin Ratio 0.8 (1.0-2.8); Alkaline Phosphatase 338 U/L (38-126); Aspartate Aminotransferase 51 IU/L (14-36); BUN Creatinine Ratio 68.3 (6-22); Bilirubin Total 1.2 mg/dL (0.2-1.3); Blood Urea Nitrogen 41 mg/dL (7-17); Calcium 8.8 mg/dL (8.4-10.2); Carbon Dioxide 31 mmol/L (22-32); Chloride 80 mmol/L (98-107); Creatine Kinase < 20 U/L (30-135); Estimated Glomerular Filt Rate > 60 mL/min (>60); Globulin 3.7 g/dL (1.7-4.1); Glucose 120 mg/dL (70-100); HEMOLYSIS < 15 (0-50); Lipase 13 U/L (23-300); Potassium 3.6 mmol/L (3.4-5.1); Sodium 121 mmol/L (137-145); Total Protein 6.7 g/dL (6.3-8.2)
[2023-07-14 01:16] LABS: NT-proBNP (BNP-Adult 18+) 293 pg/mL (<125); Troponin I < 0.012 ng/mL (0.01-0.034)
[2023-07-14 01:25] LABS: Anisocytosis 2+; Microcytosis 1+; Neutrophils Absolute Manual 17574 /uL (3000-5900); Total Cells Counted 100
[2023-07-14 01:58] LABS: Lactate (Lactic Acid) 2.3 mmol/L (0.7-2.1)
[2023-07-14 02:05] LABS: Adenovirus Not Detected (Not Detect); B. parapertussis Not Detected (Not Detecte); Bordetella pertussis Not Detected (Not Detect); Chlamydophila pneumoniae Not Detected (Not Detect); Coronavirus 229E Not Detected (Not Detect); Coronavirus HKU1 Not Detected (Not Detect); Coronavirus NL 63 Not Detected (Not Detect); Coronavirus OC43 Not Detected (Not Detect); Human Metapneumovirus Not Detected (Not Detect); Human Rhinovirus/Enterovirus Not Detected (Not Detect); Influenza A Not Detected (Not Detect); Influenza B Not Detected (Not Detect); Mycoplasma pneumoniae Not Detected (Not Detect); Parainfluenza Virus 1 Not Detected (Not Detect); Parainfluenza Virus 2 Not Detected (Not Detect); Parainfluenza Virus 3 Not Detected (Not Detect); Parainfluenza Virus 4 Detected (Not Detect); Respiratory Syncytial Virus Not Detected (Not Detect); SARS- CoV-2 Not Detected (Not Detecte)
[2023-07-14] MEDS: PIPERACILLIN/TAZO 4.5 GM in SODIUM CHLORIDE 0.9% 100 ML IV (02:09)
[2023-07-14] MEDS: HYDROMORPHONE 1 MG INJ IV (02:36)
[2023-07-14] MEDS: VANCOMYCIN 750 MG/150 ML PIGGYBACK 150 MG IV ×4 (02:54→22:55)
--- NOTE | 2023-07-14 03:22 | PC.ADMIT ---
[id number] Admission assessment done in ED by this RN. Discussed with patient the policies and procedures of [facility] but as the patient is currently boarding in the ED, she will be informed again when she arrives upstairs. Patient does not have medication list available and does not know what she takes. Brother at bedside is also unaware. Both have been instructed to acquire medication list as soon as possible to update our EMR. ADMISSION ASSESSMENT WILL NEED ARRIVAL DATE AND TIME TO ACUTE CARE. Patient seen by MD ELLIOTT at 0320. ED RN Jeanna at bedside to assess patient. Admission Note: The patient,Niecy Stokes,28 y/o, was given written information regarding hospital policies, unit procedures and contact persons. Patient's smoking status: Former smoker. Vital Signs - 8 hr 07/14/23 00:00 07/14/23 00:34 07/14/23 01:08 Temperature 98.5 F Pulse Rate 118 H Respiratory Rate 24 Blood Pressure 116/70 117/72 Pulse Oximetry 98 97 Oxygen Delivery Method Room Air Room Air 07/14/23 01:08 07/14/23 01:30 07/14/23 01:30 Temperature Pulse Rate 120 H 119 H Respiratory Rate Blood Pressure 104/58 L Pulse Oximetry 100 99 Oxygen Delivery Method 07/14/23 02:00 Temperature Pulse Rate 119 H Respiratory Rate Blood Pressure Pulse Oximetry 96 Oxygen Delivery Method
[2023-07-14 03:31] LABS: Reflexed Lactate in 2 Hours Y
--- NOTE | 2023-07-14 03:31 | P.HP_ITS ---
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 This is her 3rd visit to the ED this week she initially was seen and evaluated on 07/07/[address] scan ultimately diagnosed with pneumonia but no pulmonary embolism she was having shortness of breath at that time as well she is not currently having any abdominal pain. She reports that she is unable to lay down because she can not breathe she denies any fever she might be having a productive cough. She is really short of breath all the time. She is not having any worsening or new abdominal pain now. She says she is exhausted she has not been able to sleep due to difficulty breathing. Lost around 30 pounds in the last 3 months. Currently on TPN. Patient is not currently on chemotherapy last chemotherapy was about 3 months ago. She was admitted June 19 through the with a bowel obstruction she was discharged to help hospice care ever on July 01 decided to revoke hospice and would like to continue active treatment. Waiting for different medication. She is on continuous methadone for pain she is ongoing nausea vomiting she has continuous TPN she takes Haldol. Her oncologist is Dr Mario from [facility]. She was on palliative chemo but failed recently. Her resent PET scan on 07/01/23 is still pending final results. Initial Labs showed WBC 20, H/H 7.5/22.9, Plt 438, Na 121, LA 2.3, BG 120, AST 51, ALT 68, AF 338, Lipase 13, BNP 293, Tpn neg. CTA chest showed no PE, interval development of extensive bilateral pulmonary infiltrates concerning for aspiration pneumonia. [facility] Medical History Healthy adult Family History Father Cancer Diabetes mellitus Grandmother Diabetes mellitus Father Cancer Aunt Cancer Social History household members: family and children Smoking Status: Former smoker alcohol intake: current Meds Home Medications and Allergies Home Medications Medication Instructions Recorded Confirmed Type olanzapine 10 mg disintegrating 5 mg (1/2 x 10 mg) PO DAILY #30 11/02/22 03/17/23 Rx tablet (Zyprexa Zydis) tabs pantoprazole 40 mg tablet,delayed 40 mg PO DAILY #30 tabs 11/02/22 03/17/23 Rx release (Protonix) sennosides 8.6 mg-docusate sodium 2 tab-cap (2 x 8.6-50 mg) PO BID 11/02/22 03/17/23 Rx 50 mg capsule (Senna Plus) #60 caps hydrocortisone 1 % topical cream 1 applic topical TID PRN Itching 11/11/22 03/17/23 Rx #100 grams hydroxyzine pamoate 25 mg capsule 25 mg PO Q4HR PRN Nausea #100 caps 11/11/22 03/17/23 Rx lidocaine 5 % topical patch 1 ea topical BEDTIME #30 ea 11/11/22 03/17/23 Rx morphine 30 mg immediate release 30 mg PO Q6H PRN pain #120 tabs 11/27/22 03/17/23 Rx tablet fluorouracil 2.5 gram/50 mL 4,000 mg IV NOW CHEMOTHERAPY #1 12/17/22 03/17/23 Rx intravenous solution device mouthwashes 30 ml mucous membrane BID mouth 12/23/22 03/17/23 Rx sores #30 mL scopolamine base 1 mg over 3 days 1 patch transdermal Q3D #10 ea 01/14/23 03/17/23 Rx transdermal patch lidocaine-prilocaine 2.5 %-2.5 % 1 applic topical PRN PRN Pain At 01/28/23 03/17/23 Rx topical cream Injection Site #30 grams ondansetron 8 mg disintegrating 8 mg PO Q8H #30 tabs 02/20/23 03/17/23 Rx tablet prochlorperazine maleate 10 mg 10 mg PO Q6H PRN Nausea #30 tabs 03/25/23 Rx tablet (Compazine) scopolamine base 1 mg over 3 days 1 patch transdermal Q3D PRN Nausea 03/25/23 Rx transdermal patch And Vomiting #10 ea methadone 10 mg tablet 30 mg (3 x 10 mg) PO TID PRN 03/26/23 Rx cancer pain #100 tabs amoxicillin 875 mg-potassium 1 tab PO BID #20 tabs 04/25/23 Rx clavulanate 125 mg tablet azithromycin 200 mg/5 mL oral See Rx Instructions PO .COMPLEX 07/07/23 Rx suspension #40 mL dexamethasone 4 mg tablet 4 mg PO DAILY 07/14/23 07/14/23 History methadone 10 mg/mL oral concentrate 12 mg PO TID Pain 07/14/23 07/14/23 History Allergies Allergy/AdvReac Type Severity Reaction Status Date / Time No Known Drug Allergies Allergy Verified 07/14/23 04:06 Review of Systems Review of Systems ROS: Yes All systems reviewed with the patient and are negative except as otherwise documented Constitutional Constitutional: Reports as per HPI and Reports system reviewed and no additional complaints, except as documented Eyes Eyes: Reports as per HPI and Reports system reviewed and no additional complaints, except as documented ENT Ears, Nose, Mouth, and Throat: Yes as per HPI and Yes system reviewed and no additional complaints, except as documented Cardiovascular Cardiovascular: Reports system reviewed and no additional complaints, except as documented Respiratory Respiratory: Reports system reviewed and no additional complaints, except as documented Gastrointestinal Gastrointestinal: Reports system reviewed and no additional complaints, except as documented Genitourinary Genitourinary: Reports system reviewed and no additional complaints, except as documented Musculoskeletal Musculoskeletal: Reports system reviewed and no additional complaints, except as documented, Reports abnormal gait and Reports numbness Neurologic Neurologic: Reports system reviewed and no additional complaints, except as documented, Reports abnormal gait, Reports confusion and Reports numbness Psychiatric Psychiatric: Reports system reviewed and no additional complaints, except as documented and Reports confusion Exam Vital Signs (past 8 hours): - 07/14/23 00:00 07/14/23 00:34 07/14/23 01:08 Temperature 98.5 F Pulse Rate 118 H Respiratory Rate 24 Blood Pressure 116/70 117/72 Pulse Oximetry 98 97 Oxygen Delivery Method Room Air Room Air 07/14/23 01:08 07/14/23 01:30 07/14/23 01:30 Temperature Pulse Rate 120 H 119 H Respiratory Rate Blood Pressure 104/58 L Pulse Oximetry 100 99 Oxygen Delivery Method 07/14/23 02:00 Temperature Pulse Rate 119 H Respiratory Rate Blood Pressure Pulse Oximetry 96 Oxygen Delivery Method Oxygen Delivery Method Room Air Const General: cooperative, comfortable and well developed Orientation: alert and oriented x3 HENMT Head: normal to inspection, normocephalic and atraumatic Face and sinus: normal facial exam Mouth: oral mucosae normal and moist mucous membranes Throat: posterior oropharynx normal Eyes General: appearance normal, both eyes and all related structures Pupils: PERRL EOM: EOM intact bilaterally Neck Neck: normal visual inspection and full ROM Chest Chest: normal inspection of the chest Resp Effort & Inspection: normal respiratory effort and able to speak in complete sentences Auscultation: clear to auscultation bilaterally Cardio Palpation: normal PMI Rate: regular rate Rhythm: regular rhythm Heart Sounds: S1 normal and S2 normal GI Inspection: normal to inspection Palpation: soft and no hepatosplenomegaly Auscultation: normal bowel sounds Skin General: no rashes or lesions noted Lesions: no lesions Rashes: no rashes Trauma: no lacerations or abrasions Neuro General: patient alert, patient awake, patient oriented x3 and no focal motor deficits Cranial Nerves: CN's II-XI intact bilaterally Cognition: normal cognition Speech: speech normal Gait: normal gait Motor: muscle tone normal throughout Sensory Exam: no sensory deficits noted Extrem General: full ROM and no calf tenderness Psych Appearance: grossly normal Mental Status: mental status grossly normal Speech and Movement: speech and movement normal Objective Labs 07/14/23 00:40 07/14/23 00:40 Labs: Laboratory Results - last 24 hr 07/14/23 07/14/23 07/14/23 00:40 01:09 01:24 WBC 20.2 H RBC 3.10 L Hgb 7.5 L Hct 22.9 L MCV 73.6 L MCH 24.2 L MCHC 32.9 RDW 24.6 H Plt Count 438 H Neut % (Auto) Not Reportable Lymph % (Auto) Not Reportable [place] % (Auto) Not Reportable Eos % (Auto) Not Reportable Baso % (Auto) Not Reportable Lymph # (Auto) Not Reportable [place] # (Auto) Not Reportable Baso # (Auto) Not Reportable Total Counted 100 Seg Neutrophils % 84.0 H Band Neutrophils % 3.0 Lymphocytes % (Manual) 11.0 L Monocytes % (Manual) 2.0 Neutrophils # (Manual) 54839 H RBC Morphology See below Anisocytosis 2+ H Microcytosis 1+ H PT 12.7 INR 1.1 APTT 26 Sodium 121 L Potassium 3.6 Chloride 80 L Carbon Dioxide 31 BUN 41 H Creatinine 0.60 Estimated GFR > 60 BUN/Creatinine Ratio 68.3 H Glucose 120 H Lactate 2.3 H Calcium 8.8 Total Bilirubin 1.2 AST 51 H ALT 68 H Alkaline Phosphatase 338 H Total Creatine Kinase < 20 L Troponin I < 0.012 NT-Pro-B Natriuret Pep 293 H Total Protein 6.7 Albumin 3.0 L Globulin 3.7 Albumin/Globulin Ratio 0.8 L Lipase 13 L D Chlamy pneumoniae PCR Not detected Adenovirus (PCR) Not detected B.parapertussis DNA PCR Not detected Coronavirus OC43 (PCR) Not detected Coronavirus HKU1 (PCR) Not detected Coronavirus 229E (PCR) Not detected SARS-CoV-2 (PCR) Not detected Coronavirus NL63 (PCR) Not detected Human Metapneumovir PCR Not detected Influenza Type A (PCR) Not detected Influenza Type B (PCR) Not detected M. pneumoniae (PCR) Not detected Parainfluenza 1 (PCR) Not detected Parainfluenza 2 (PCR) Not detected Parainfluenza 3 (PCR) Not detected Parainfluenza 4 (PCR) Detected RSV (PCR) Not detected Entero/Rhino (PCR) Not detected Blood Type B Positive Antibody Screen Negative Crossmatch See Detail Assessment & Plan Assessment and plan (1) Aspiration pneumonia: Status: Acute Plan: Aspiration pneumonia vs post obstructive pneumonia vs pneumonitis vs parainfluenza Continue Zosyn and Vancomycine IV start Tamiflu oxygen supplement to keep her oxygenation over 94% Albuterol prn follow on BC (2) Acute hyponatremia: Status: Acute Plan: suspect SIADH hold any fluids for now BMP daily (3) Metastatic cancer: Status: Acute Plan: prognosis is guarding. Patient wants to remain full code palliative care consult restart home meds for symptomatic Tx Dietitian consult for TPN social work administrator consult for DC planing (4) Anemia: Status: Acute Plan: Significant drop from pervious Hb. denies any hematemesis or melena start PPI CBC dauily Time Spent With Patient Time with patient: 50 to 69 minutes with 50% spent counseling/coordinating care Quality VTE Deep Vein Thrombosis/Pulmonary Embolism Present on Admission: No MIPS - Admit I confirm the patient?s Advance Care Plan is present, Code status is documented, Surrogate decision maker is in patient?s record [If Yes, STOP here]: Yes MIPS - Meds 'Current medications' to include all prescriptions, [id number] products, herbals, cannabis/cannabidiol products, and vitamin/mineral/dietary (nutritional) supplements. I have utilized all available resources to obtain, update, or review the patient?s current medications. [If Yes, STOP here]: Yes
[2023-07-14 04:34] LABS: Lactate 2HR (Lactic Acid Rflx) 2.3 mmol/L (0.7-2.1)
[2023-07-14] MEDS: HYDROMORPHONE 0.5 MG INJ IV ×4 (06:10→19:01)
[2023-07-14] MEDS: PROMETHAZINE 25 MG TABLET PO (06:16)
[2023-07-14] MEDS: MORPHINE ER 15 MG TABLET 30 MG PO (06:18)
[2023-07-14] MEDS: PIPERACILLIN/TAZO 3.375 GM in SODIUM CHLORIDE 0.9% 100 ML IV ×3 (06:19→23:58)
--- NOTE | 2023-07-14 06:26 | DIET.CONS ---
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 Recc initiating 1L Clinimix E today with 250mL lipids M, W, F. Pt with elevated BNP and sx of SOB with difficulty lying flat. Ht: 160.02 cm Wt: 50.349 kg BMI: 19.6 UBW: Last BM: () MNA: 5 Gurdeep Score: 20 Diet: 07/14/23 Breakfast General (Regular) Diet Diet Modifications: Labs: RBC 3.10 X10^6/uL (4.0-5.2) L 07/14/23 00:40 Hgb 7.5 g/dL (12.0-16.0) L 07/14/23 00:40 Hct 22.9 % (36-46) L 07/14/23 00:40 Creatinine 0.60 mg/dL (0.52-1.04) 07/14/23 00:40 Lactate 2.3 mmol/L (0.7-2.1) H 07/14/23 04:00 NT-Pro-B Natriuret Pep 293 pg/mL (<125) H 07/14/23 00:40 Nutrition Diagnosis: inability to meet nutrition needs PO r/t altered GI fxn aeb pt with metastatic stomach cancer, recent SBO on residential TPN. Interventions: 1. Initiate continuous TPN via PICC/Port, 1L Clinimix E running at 42mL/h with 250mL lipids M, W, F. Monitoring/Evaluations: Titration up to TPN goal reviewed daily with hospitalist and pharmacy r/t s/sx SOB fluid status. Electronically Signed by: Jolie Dudley 07/14/23 06:26 Clinical Dietitian [address] [address]
[2023-07-14] MEDS: SODIUM CHLORIDE 0.9% 1,000 ML 100 ML IV ×2 (07:59→18:50)
[2023-07-14 08:35] LABS: Add Manual Diff / Slide Review NO; Basophils Absolute Auto 100 /uL (0-100); Basophils Percent Auto 0.3 % (0-2); Eosinophils Absolute Auto 100 /uL (0-450); Eosinophils Percent Auto 0.5 % (2-4); Hematocrit 25.7 % (36-46); Hemoglobin 8.8 g/dL (12.0-16.0); Lymphocytes Absolute Auto 1200 /uL (1100-4500); Lymphocytes Percent Auto 6.5 % (25-40); Mean Corpuscular HGB Conc 34.1 % (30-36); Mean Corpuscular Hemoglobin 25.4 PG (26-34); Mean Corpuscular Volume 74.5 fL (80-100); Monocytes Absolute Auto 300 /uL (0-900); Monocytes Percent Auto 1.8 % (3-14); Neutrophils Absolute Auto 16800 /uL (1500-7000); Neutrophils Percent Auto 90.9 % (50-75); Platelet Count 360 X10^3/uL (150-400); Red Blood Cell Count 3.45 X10^6/uL (4.0-5.2); Red Cell Distribution Width 23.4 % (11.6-14.8); White Blood Cell Count 18.4 X10^3/uL (4.5-11.0)
[2023-07-14 08:55] LABS: Anisocytosis 2+; Dohle Bodies 1+
[2023-07-14 08:57] LABS: Hypochromasia 1+; Microcytosis 1+; Polychromasia 1+; Stomatocytes 1+; Toxic Granulation Present; Toxic Vacuolation Present
[2023-07-14] MEDS: ENOXAPARIN 40 MG/0.4 ML SYRINGE SUBCUT (09:05)
[2023-07-14] MEDS: PANTOPRAZOLE 40 MG VIAL IV ×2 (09:06→20:50)
[2023-07-14] MEDS: SENNOSIDES 8.6 MG TABLET 17.2 MG PO ×2 (09:07→20:50)
[2023-07-14] MEDS: OLANZapine ODT 10 MG TAB 5 MG PO (09:08)
[2023-07-14] MEDS: DOCUSATE 100 MG CAPSULE PO ×2 (09:40→20:50)
[2023-07-14] MEDS: OSELTAMIVIR 75 MG CAPSULE PO ×2 (09:41→20:50)
--- NOTE | 2023-07-14 09:49 | PC.NURSE ---
Pt asked if I knew when she was going to go home. I told her we are working on getting her admitted to the hospital. She expressed not wanting to stay in the hospital. Pt states she doesnt feel that bad. I asked her if it is okay that we admit her to the hospital and patient states it is okay, and that she needs to suck it up. She wants to get back home with her 2 daughters. The oldest is making her unicorn cupcakes for Pt's birthday.
[2023-07-14 13:28] LABS: Hematocrit 24.9 % (36-46); Hemoglobin 8.6 g/dL (12.0-16.0); Mean Corpuscular HGB Conc 34.5 % (30-36); Mean Corpuscular Hemoglobin 25.7 PG (26-34); Mean Corpuscular Volume 74.4 fL (80-100); Platelet Count 350 X10^3/uL (150-400); Red Blood Cell Count 3.34 X10^6/uL (4.0-5.2); Red Cell Distribution Width 23.1 % (11.6-14.8); White Blood Cell Count 15.9 X10^3/uL (4.5-11.0)
[2023-07-14 13:31] LABS: Add Manual Diff / Slide Review YES
[2023-07-14 13:34] LABS: Alanine Aminotransferase 53 IU/L (<35); Albumin 2.6 g/dL (3.5-5.0); Albumin Globulin Ratio 0.8 (1.0-2.8); Alkaline Phosphatase 292 U/L (38-126); Aspartate Aminotransferase 56 IU/L (14-36); BUN Creatinine Ratio 70.5 (6-22); Bilirubin Total 1.5 mg/dL (0.2-1.3); Blood Urea Nitrogen 31 mg/dL (7-17); Calcium 8.4 mg/dL (8.4-10.2); Carbon Dioxide 30 mmol/L (22-32); Chloride 86 mmol/L (98-107); Estimated Glomerular Filt Rate > 60 mL/min (>60); Globulin 3.3 g/dL (1.7-4.1); Glucose 111 mg/dL (70-100); HEMOLYSIS < 15 (0-50); Lactate (Lactic Acid) 1.6 mmol/L (0.7-2.1); Potassium 3.1 mmol/L (3.4-5.1); Sodium 123 mmol/L (137-145); Total Protein 5.9 g/dL (6.3-8.2)
[2023-07-14 13:50] LABS: Procalcitonin 0.28 ng/mL (<0.5)
[2023-07-14 13:53] LABS: Neutrophils Absolute Manual 12084 /uL (3000-5900); Total Cells Counted 100
[2023-07-14 13:56] LABS: Anisocytosis 2+; Dohle Bodies 1+; Polychromasia 1+; Smudge Cells 1+; Target Cells 1+; Tear Drop Cells 1+; Toxic Granulation Present; Toxic Vacuolation Present
[2023-07-14 13:57] LABS: Hypochromasia 1+
[2023-07-14 14:15] LABS: C-Reactive Protein Quant 30.2 mg/dL (<1.0)
--- NOTE | 2023-07-14 16:46 | PM.PN.1 ---
Subjective Subjective Date Patient Seen: 07/14/23 Time Patient Seen: 16:46 Interval history: Patient resting comfortably and not needing anything right night. Is tired from long night without much sleep. Exam Vital Signs (past 8 hours): - 07/14/23 09:00 07/14/23 09:30 07/14/23 10:00 Temperature Pulse Rate 113 H 114 H 111 H Respiratory Rate Blood Pressure Pulse Oximetry 99 99 98 Oxygen Delivery Method Room Air Oxygen Flow Rate 07/14/23 10:30 07/14/23 10:43 07/14/23 10:44 Temperature Pulse Rate 111 H 109 H Respiratory Rate Blood Pressure 107/64 Pulse Oximetry 98 99 Oxygen Delivery Method Oxygen Flow Rate 07/14/23 10:44 07/14/23 11:00 07/14/23 11:00 Temperature Pulse Rate 114 H 113 H Respiratory Rate Blood Pressure 111/74 Pulse Oximetry 99 99 Oxygen Delivery Method Oxygen Flow Rate 07/14/23 11:30 07/14/23 12:00 Temperature 97.6 F Pulse Rate 104 H 112 H Respiratory Rate 16 Blood Pressure 101/70 Pulse Oximetry 98 99 Oxygen Delivery Method Room Air Oxygen Flow Rate 0 Oxygen Delivery Method Room Air Oxygen Flow Rate 0 Narrative Exam Narrative: General: fatigued, wanting to sleep, in no acute medical distress Respiratory: Effort & Inspection: normal respiratory effort and able to speak in complete sentences, clear to auscultation bilaterally Objective Labs 07/14/23 13:10 07/14/23 13:10 Labs: Laboratory Results - last 24 hr 07/14/23 07/14/23 07/14/23 00:40 01:09 01:24 WBC 20.2 H RBC 3.10 L Hgb 7.5 L Hct 22.9 L MCV 73.6 L MCH 24.2 L MCHC 32.9 RDW 24.6 H Plt Count 438 H Neut % (Auto) Not Reportable Lymph % (Auto) Not Reportable [place] % (Auto) Not Reportable Eos % (Auto) Not Reportable Baso % (Auto) Not Reportable Neut # (Auto) Lymph # (Auto) Not Reportable [place] # (Auto) Not Reportable Eos # (Auto) Baso # (Auto) Not Reportable Total Counted 100 Seg Neutrophils % 84.0 H Band Neutrophils % 3.0 Lymphocytes % (Manual) 11.0 L Monocytes % (Manual) 2.0 Eosinophils % (Manual) Metamyelocytes % Myelocytes % Neutrophils # (Manual) 61359 H Smudge Cells Toxic Granulation Toxic Vacuolation Dohle Bodies Plt Morphology Comment RBC Morphology See below Polychromasia Hypochromasia Anisocytosis 2+ H Microcytosis 1+ H Target Cells Tear Drop Cells Stomatocytes PT 12.7 INR 1.1 APTT 26 Sodium 121 L Potassium 3.6 Chloride 80 L Carbon Dioxide 31 BUN 41 H Creatinine 0.60 Estimated GFR > 60 BUN/Creatinine Ratio 68.3 H Glucose 120 H Lactate 2.3 H Calcium 8.8 Total Bilirubin 1.2 AST 51 H ALT 68 H Alkaline Phosphatase 338 H Total Creatine Kinase < 20 L Troponin I < 0.012 C-Reactive Protein NT-Pro-B Natriuret Pep 293 H Total Protein 6.7 Albumin 3.0 L Globulin 3.7 Albumin/Globulin Ratio 0.8 L Lipase 13 L D Procalcitonin Chlamy pneumoniae PCR Not detected Adenovirus (PCR) Not detected B.parapertussis DNA PCR Not detected Coronavirus OC43 (PCR) Not detected Coronavirus HKU1 (PCR) Not detected Coronavirus 229E (PCR) Not detected SARS-CoV-2 (PCR) Not detected Coronavirus NL63 (PCR) Not detected Human Metapneumovir PCR Not detected Influenza Type A (PCR) Not detected Influenza Type B (PCR) Not detected M. pneumoniae (PCR) Not detected Parainfluenza 1 (PCR) Not detected Parainfluenza 2 (PCR) Not detected Parainfluenza 3 (PCR) Not detected Parainfluenza 4 (PCR) Detected RSV (PCR) Not detected Entero/Rhino (PCR) Not detected Blood Type B Positive Antibody Screen Negative Crossmatch See Detail 07/14/23 07/14/23 07/14/23 04:00 08:30 13:10 WBC 18.4 H 15.9 H RBC 3.45 L 3.34 L Hgb 8.8 L 8.6 L Hct 25.7 L 24.9 L MCV 74.5 L 74.4 L MCH 25.4 L 25.7 L MCHC 34.1 34.5 RDW 23.4 H 23.1 H Plt Count 360 350 Neut % (Auto) 90.9 H Not Reportable Lymph % (Auto) 6.5 L Not Reportable [place] % (Auto) 1.8 L Not Reportable Eos % (Auto) 0.5 L Not Reportable Baso % (Auto) 0.3 Not Reportable Neut # (Auto) 58202 H Lymph # (Auto) 1200 Not Reportable [place] # (Auto) 300 Not Reportable Eos # (Auto) 100 Baso # (Auto) 100 Not Reportable Total Counted 100 Seg Neutrophils % 68.0 Band Neutrophils % 8.0 H Lymphocytes % (Manual) 10.0 L Monocytes % (Manual) 6.0 Eosinophils % (Manual) 2.0 Metamyelocytes % 5.0 H Myelocytes % 1.0 H Neutrophils # (Manual) 08103 H Smudge Cells 1+ H Toxic Granulation Present H Present H Toxic Vacuolation Present H Present H Dohle Bodies 1+ H 1+ H Plt Morphology Comment RBC Morphology See below See below Polychromasia 1+ H 1+ H Hypochromasia 1+ H 1+ H Anisocytosis 2+ H 2+ H Microcytosis 1+ H Target Cells 1+ H Tear Drop Cells 1+ H Stomatocytes 1+ H PT INR APTT Sodium 123 L Potassium 3.1 L Chloride 86 L Carbon Dioxide 30 BUN 31 H Creatinine 0.44 L Estimated GFR > 60 BUN/Creatinine Ratio 70.5 H Glucose 111 H Lactate 2.3 H 1.6 Calcium 8.4 Total Bilirubin 1.5 H AST 56 H ALT 53 H Alkaline Phosphatase 292 H Total Creatine Kinase Troponin I C-Reactive Protein 30.2 H NT-Pro-B Natriuret Pep Total Protein 5.9 L Albumin 2.6 L Globulin 3.3 Albumin/Globulin Ratio 0.8 L Lipase Procalcitonin 0.28 Chlamy pneumoniae PCR Adenovirus (PCR) B.parapertussis DNA PCR Coronavirus OC43 (PCR) Coronavirus HKU1 (PCR) Coronavirus 229E (PCR) SARS-CoV-2 (PCR) Coronavirus NL63 (PCR) Human Metapneumovir PCR Influenza Type A (PCR) Influenza Type B (PCR) M. pneumoniae (PCR) Parainfluenza 1 (PCR) Parainfluenza 2 (PCR) Parainfluenza 3 (PCR) Parainfluenza 4 (PCR) RSV (PCR) Entero/Rhino (PCR) Blood Type Antibody Screen Crossmatch [facility] Medical History Healthy adult Family History Father Cancer Diabetes mellitus Grandmother Diabetes mellitus Father Cancer Aunt Cancer Social History household members: family and children Smoking Status: Former smoker alcohol intake: current Assessment & Plan Assessment & Plan narrative: # aspiration pneumonia - treating with Pip/tazo and vanco - continue. # admission completed earlier today - continue orders as entered. Quality VTE Deep Vein Thrombosis/Pulmonary Embolism Present on Admission: No
[2023-07-14] MEDS: SCOPOLAMINE 1 PATCH TOP (17:04)
[2023-07-14] MEDS: POTASSIUM CHLORIDE IN WATER 10 MEQ/100 ML PIGGYBACK 100 MEQ IV ×4 (18:04→21:55)
[2023-07-14] MEDS: ONDANSETRON 4 MG ODT 8 MG PO (20:49)
[2023-07-14] MEDS: LIDOCAINE PATCH 1 EACH ADH..PATCH TOP (20:51)
[2023-07-15] MEDS: VANCOMYCIN 750 MG/150 ML PIGGYBACK 150 MG IV ×2 (04:50→10:41)
[2023-07-15] MEDS: guaiFENesin Solution 100 MG/5 ML UDC 200 MG PO (05:15)
[2023-07-15 05:23] LABS: Hematocrit 23.8 % (36-46); Mean Corpuscular HGB Conc 33.5 % (30-36); Mean Corpuscular Hemoglobin 25.1 PG (26-34); Mean Corpuscular Volume 74.9 fL (80-100); Platelet Count 322 X10^3/uL (150-400); Red Blood Cell Count 3.18 X10^6/uL (4.0-5.2); Red Cell Distribution Width 23.5 % (11.6-14.8); White Blood Cell Count 12.4 X10^3/uL (4.5-11.0)
[2023-07-15 05:29] LABS: Add Manual Diff / Slide Review YES
[2023-07-15 05:33] LABS: BUN Creatinine Ratio 45.7 (6-22); Blood Urea Nitrogen 21 mg/dL (7-17); Calcium 8.2 mg/dL (8.4-10.2); Carbon Dioxide 24 mmol/L (22-32); Chloride 92 mmol/L (98-107); Estimated Glomerular Filt Rate > 60 mL/min (>60); Glucose 63 mg/dL (70-100); HEMOLYSIS < 15 (0-50); Potassium 3.2 mmol/L (3.4-5.1); Sodium 124 mmol/L (137-145)
[2023-07-15 05:41] LABS: Neutrophils Absolute Manual 10912 /uL (3000-5900); Nucleated Red Blood Cells 2 #/Diff; Total Cells Counted 100
[2023-07-15 05:42] LABS: Anisocytosis 2+; Microcytosis 1+; Polychromasia 1+
[2023-07-15 06:00] VITALS: BP 112/66; PULSE 110; RESP 17; TEMP 36.6; O2SAT 97
[2023-07-15] MEDS: ONDANSETRON 4 MG ODT 8 MG PO (06:11)
[2023-07-15] MEDS: PIPERACILLIN/TAZO 3.375 GM in SODIUM CHLORIDE 0.9% 100 ML IV (06:12)
[2023-07-15] MEDS: HYDROMORPHONE 0.5 MG INJ IV ×6 (06:16→17:59)
[2023-07-15] MEDS: BENZOCAINE/MENTHOL 1 LOZ PKT 1 EACH PO ×2 (07:50→15:47)
[2023-07-15] MEDS: ENOXAPARIN 40 MG/0.4 ML SYRINGE SUBCUT (08:01)
[2023-07-15] MEDS: DOCUSATE 100 MG CAPSULE PO (08:01)
[2023-07-15] MEDS: SENNOSIDES 8.6 MG TABLET 17.2 MG PO (08:02)
[2023-07-15] MEDS: PANTOPRAZOLE 40 MG VIAL IV (08:02)
[2023-07-15] MEDS: OSELTAMIVIR 75 MG CAPSULE PO (08:02)
[2023-07-15] MEDS: ONDANSETRON 4 MG/2 ML INJ IV (08:13)
[2023-07-15 09:00] VITALS: BP 110/69; PULSE 114; RESP 16; TEMP 36.2; O2SAT 97
[2023-07-15 10:27] LABS: Vancomycin Trough 18.2 ug/mL (10-20)
[2023-07-15] MEDS: PROMETHAZINE 25 MG TABLET PO (10:44)
[2023-07-15] MEDS: POTASSIUM CHLORIDE IN WATER 10 MEQ/100 ML PIGGYBACK 100 MEQ IV ×4 (11:55→16:20)
--- NOTE | 2023-07-15 12:09 | CM.DANOTE ---
Reviewed EMR and team rounds for pt's medical status and initial anticipated d/c needs. Met with pt, brother, and mother at bedside, pt/family are well known to this CLAMP CARRIER OPERATOR. Pt found to be somnolent, but expressing having improved energy today. She recognized this CLAMP CARRIER OPERATOR and was able to participate in visit and express needs. Her primary goal is to d/c home w/family and her children as soon as possible, as well as to f/u OP with [facility]. Payor: [employer] PCP: Yaneli Brewer Oncologist: Dr. Kwaku Mario, [facility] Pt is a 28 year-old F who presented for a third time to the ED on 07/14 for worsening dyspnea, fatigue, weakness. She has a significant medical hx of metastatic gastric cancer, has not had chemotherapy in about 3-months, was told the focus of tx was palliative. She had been previously hospitalized from June 19 through the with a bowel obstruction, then was d/c'd onto hospice care July 01. She recently chose to revoke hospice and try again for active treatment, although her Oncologist has told her that any further treatments are futile. She is also currently on TPN, continuing inpt this admission. She is single, has 2-small children, and resides in her mother's home along with her brother and [id number]. Her mother has been designated at the Guardian for her children following her eventual , this has been legally arranged. Resources have always been very tight for pt/family. She had worked for [employer] prior to her cancer dx, and has not been able to work since. CLAMP CARRIER OPERATOR provided her with a karlos application for a local non-profit that provides monetary grants for cancer patients. Her brother will assist w/completing this and getting Dr. Mario's signature for submission. Plan at d/c will be home w/family, family will transport. Cont. to monitor for home d/c needs and recommendations. Discharge Planning/Care Management Advanced directive, confirm from FAMILY Start: 07/14/23 03:15 Freq: Q24H Status: Active Protocol: Document 07/14/23 19:00 CT (Rec: 07/14/23 22:03 CT [id number]) Advance Directive, confirm on record Time 22:02 Person contacted patient Copy received No CM Discharge Assessment Start: 07/15/23 11:52 Freq: Status: Active Protocol: Document 07/15/23 12:02 DPL (Rec: 07/15/23 12:08 DPL [id number]) Discharge Planning Assessment Assigned Certified Medicine Aide RICHARD Mcfadden DPOA/Assigned Designee Name Giuliano Augustin Advance Directives? Yes Advance Directives on File No History Provided By Patient,Family Member,Medical Record Expected Length of Stay 3 Has Patient been admitted in last 30 No days? Comment 3-ED visits this week for same issues Prior Living Arrangements House Household Members children,family Type of transporation used prior to Relies on Others admit Independent with ADL's Yes Is patient alert and oriented? Yes: Alert, but somnolent. Community Services used prior to Hospice admission: Comment Pt was on hospice, revoked in order to restart active treatment. She has been told by Oncology that any further cancer tx is futile, however she is determined to keep trying. Patient/Family Preference Home with Home Health Comment Pending benefit of IV ABO's. Barriers to Discharge No Discharge Plan Home Transportation Arrangement Family to provide transportation Referrals Initiated None needed,Home Health Additional Comment [facility] referral previously made, only agency that would take her insurance but they have not been able to schedule to open pt to service yet, would need new referral. [facility] following for managing TPN. If patient plan is home with home health No: Will complete if this is : Has signed face to face form been recommended at d/c. completed? Medicare Choice List Provided Yes Whiteboard Updated in Patient Room with Yes name and ext. # of Certified Medicine Aide Review Status In Process Please Provide Date Initial DC 07/15/23 Assessment Was Performed
[2023-07-15 13:27] LABS: Vancomycin Peak 46.3 ug/mL (20-40)
--- NOTE | 2023-07-15 13:35 | P.DS_ITS ---
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 This is her 3rd visit to the ED this week she initially was seen and evaluated on 07/07/[address] scan ultimately diagnosed with pneumonia but no pulmonary embolism she was having shortness of breath at that time as well she is not currently having any abdominal pain. She reports that she is unable to lay down because she can not breathe she denies any fever she might be having a productive cough. She is really short of breath all the time. She is not having any worsening or new abdominal pain now. She says she is exhausted she has not been able to sleep due to difficulty breathing. Lost around 30 pounds in the last 3 months. Currently on TPN. Patient is not currently on chemotherapy last chemotherapy was about 3 months ago. She was admitted June 19 through the with a bowel obstruction she was discharged to help hospice care ever on July 01 decided to revoke hospice and would like to continue active treatment. Waiting for different medication. She is on continuous methadone for pain she is ongoing nausea vomiting she has continuous TPN she takes Haldol. Her oncologist is Dr Mario from [facility]. She was on palliative chemo but failed recently. Her resent PET scan on 07/01/23 is still pending final results. Initial Labs showed WBC 20, H/H 7.5/22.9, Plt 438, Na 121, LA 2.3, BG 120, AST 51, ALT 68, AF 338, Lipase 13, BNP 293, Tpn neg. CTA chest showed no PE, interval development of extensive bilateral pulmonary infiltrates concerning for aspiration pneumonia. Discharge Providers Provider Date of admission: 07/14/23 02:40 Discharge Date: 07/15/23 Primary care physician: Yaneli Brewer DO Consults: 07/14/23 02:36 Consult to Dietitian, Adult Routine Comment: Reason For Exam: TPN 07/14/23 02:37 Consult to Discharge Planning Routine Comment: 07/14/23 02:58 Consult to Palliative Care Routine Comment: Consulting Provider: Deyanira Maria 07/14/23 03:14 Consult to Dietitian, Adult Routine Comment: Reason For Exam: weight loss & reduced appetite Discharge provider: Keon Gomez DO Summary Hospital Course Discharge Diagnosis: (1) Parainfluenza pneumonia with probable superimposed bacterial pneumonia with acute respiratory failure with hypoxia. (2) Possibly acute, likely Chronic hyponatremia (3) Metastatic gastric adenocarcinoma (4) Anemia, possibly acute Hospital Course: This is a 28 year old female with PMH of metastatic gastric adenocarcinoma, recently rescinded hospice and wished to resume treatments, who presented with shortness of breath, and was admitted for pneumonia with respiratory failure. CT angio was negative for PE, but showed multifocal infiltrates, possible aspiration was noted on read. Patient had no abdominal distension and ascites is much improved from previously. Respiratory panel was positive for parainfluenza 4 virus. She had a leukocytosis and was treated with zosyn for possible aspiration pneumonia or superimposed bacterial pneumonia. She continued to improve and on the day of discharge had much improved shortness of breath and was no longer requiring supplemental oxygen. Her sodium remained stable in the mid 120s, she was asymptomatic and suspect this has been more chronic. 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 Her anemia was also stable and felt to be chronic with no evidence of active bleeding during admission. She was prescribed outpatient antibiotics to complete therapy for presumed superimposed bacterial pneumonia, aspiration is felt to be less likely at this time. MRSA coverage was provided given improvement with vancomycin here in the hospital with doxycycline. Time Spent with Patient Time spent: Greater than 30 minutes Exam Vital Signs (past 8 hours): - 07/15/23 06:00 07/15/23 09:00 Temperature 97.8 F 97.1 F L Pulse Rate 110 H 114 H Respiratory Rate 17 16 Blood Pressure 112/66 110/69 Pulse Oximetry 97 97 Oxygen Flow Rate 0 0 Oxygen Delivery Method Room Air Oxygen Flow Rate 0 Narrative Exam Narrative: GEN: fatigued, lethargic HEENT: MMM, PERRL NECK: trachea midline, no JVD PULM: clear bilaterally, no wheezes, rhonchi, rales CV: tachycardic no murmurs ABD: soft, NT ND EXT: warm and well perfused with no edema NEURO: awake but fatigued, no focal deficits Objective Labs 07/15/23 04:58 07/15/23 04:58 Labs: Laboratory Results - last 24 hr 11/02/2807/15/23 07/15/23 13:10 04:58 09:48 WBC 12.4 H RBC 3.18 L Hgb 8.0 L Hct 23.8 L MCV 74.9 L MCH 25.1 L MCHC 33.5 RDW 23.5 H Plt Count 322 Neut % (Auto) Not Reportable Lymph % (Auto) Not Reportable Iron % (Auto) Not Reportable Eos % (Auto) Not Reportable Baso % (Auto) Not Reportable Lymph # (Auto) Not Reportable Iron # (Auto) Not Reportable Baso # (Auto) Not Reportable Total Counted 100 100 Seg Neutrophils % 68.0 85.0 H Band Neutrophils % 8.0 H 3.0 Lymphocytes % (Manual) 10.0 L 6.0 L Monocytes % (Manual) 6.0 3.0 Eosinophils % (Manual) 2.0 Metamyelocytes % 5.0 H 3.0 H Myelocytes % 1.0 H Neutrophils # (Manual) 31772 H 55952 H Nucleated RBCs 2 H Smudge Cells 1+ H Toxic Granulation Present H Toxic Vacuolation Present H Dohle Bodies 1+ H Plt Morphology Comment RBC Morphology See below See below Polychromasia 1+ H 1+ H Hypochromasia 1+ H Anisocytosis 2+ H 2+ H Microcytosis 1+ H Target Cells 1+ H Tear Drop Cells 1+ H Sodium 123 L 124 L Potassium 3.1 L 3.2 L Chloride 86 L 92 L Carbon Dioxide 30 24 BUN 31 H 21 H Creatinine 0.44 L 0.46 L Estimated GFR > 60 > 60 BUN/Creatinine Ratio 70.5 H 45.7 H Glucose 111 H 63 L Lactate 1.6 Calcium 8.4 8.2 L Total Bilirubin 1.5 H AST 56 H ALT 53 H Alkaline Phosphatase 292 H C-Reactive Protein 30.2 H Total Protein 5.9 L Albumin 2.6 L Globulin 3.3 Albumin/Globulin Ratio 0.8 L Procalcitonin 0.28 Vancomycin Peak Vancomycin Trough 18.2 07/15/23 12:10 WBC RBC Hgb Hct MCV MCH MCHC RDW Plt Count Neut % (Auto) Lymph % (Auto) Iron % (Auto) Eos % (Auto) Baso % (Auto) Lymph # (Auto) Iron # (Auto) Baso # (Auto) Total Counted Seg Neutrophils % Band Neutrophils % Lymphocytes % (Manual) Monocytes % (Manual) Eosinophils % (Manual) Metamyelocytes % Myelocytes % Neutrophils # (Manual) Nucleated RBCs Smudge Cells Toxic Granulation Toxic Vacuolation Dohle Bodies Plt Morphology Comment RBC Morphology Polychromasia Hypochromasia Anisocytosis Microcytosis Target Cells Tear Drop Cells Sodium Potassium Chloride Carbon Dioxide BUN Creatinine Estimated GFR BUN/Creatinine Ratio Glucose Lactate Calcium Total Bilirubin AST ALT Alkaline Phosphatase C-Reactive Protein Total Protein Albumin Globulin Albumin/Globulin Ratio Procalcitonin Vancomycin Peak 46.3 H* Vancomycin Trough PFSH Medical History Healthy adult Family History Father Cancer Diabetes mellitus Grandmother Diabetes mellitus Father Cancer Aunt Cancer Social History household members: family and children Smoking Status: Former smoker alcohol intake: current Discharge Plan Discharge Plan Patient Disposition: Home Provider Discharge Comment: You were admitted to the hospital with pneumonia, most likely due to viral pneumonia but also possible this is bacterial. Will keep you on antibiotics for another couple of days at home. Discharge orders & Medications Prescriptions: New amoxicillin-pot clavulanate 875-125 mg tablet 1 tab PO Q12H 5 Days Qty: 10 0RF doxycycline hyclate 100 mg tablet 100 mg PO BID 5 Days Qty: 10 0RF Continued morphine 30 mg tablet 30 mg PO Q6H PRN (Reason: pain) Qty: 120 0RF Rx Instructions: take 1 tablet four times per day for pain fluorouracil 2.5 gram/50 mL Solution 4,000 mg IV NOW Qty: 1 0RF Rx Instructions: continuous infusion over 46 hours prochlorperazine maleate [Compazine] 10 mg tablet 10 mg PO Q6H PRN (Reason: Nausea) Qty: 30 0RF scopolamine base 1 mg over 3 days Patch 3 Day 1 patch TRANSDERMAL Q3D PRN (Reason: Nausea And Vomiting) Qty: 10 0RF Senna Plus 8.6-50 mg capsule 2 tab-cap PO BID Qty: 60 0RF dexamethasone 4 mg tablet 4 mg PO DAILY methadone 10 mg/mL concentrate 12 mg PO TID Rx Instructions: 0.2ml + 1ml =12mg (per patients home med list) ondansetron 8 mg Tablet,Disintegrating 8 mg PO Q8H Qty: 30 0RF Follow up/Referrals: Yaneli Brewer DO [Primary Care Provider] - Diet/Activity/Treatments Diet: Diet as Tolerated Activity: As tolerated, no restrictions Visit Report/Discharge Packet Stand Alone Forms: Patient Portal/API, Stroke Signs & Symptoms Discharge Data Primary Care Provider: Yaneli Brewer Quality VTE Deep Vein Thrombosis/Pulmonary Embolism Present on Admission: No
[2023-07-15 16:00] VITALS: BP 122/77; PULSE 123; RESP 16; TEMP 36.6; O2SAT 98
--- NOTE | 2023-07-15 19:47 | PC.NURSE ---
Discharge Note Patient A&O, VSS, RA, complaints/discomforts treated with PRN medication. PIV discontinued. Patient able to dress self and pack all belongings. Discharge packet reviewed with patient, all questions/concerns address. 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 Patient taken down via wheelchair to POV.
== END 2023-07-15 18:00 | disposition home or self-care (01) | DRG 139 ==
LOC: ED 07-14 00:16 → AC 07-14 02:41
PROVIDERS: Neuromusculoskeletal Medicine, Sports Medicine; Admitting Provider Internal Medicine; Emergency Provider Emergency Medicine; PCP Family Medicine; Referring Provider Emergency Medicine; Visit Provider Internal Medicine
DX: J12.2 Parainfluenza virus pneumonia (principal); E22.2 Syndrome of inappropriate secretion of antidiuretic hormone; C16.9 Malignant neoplasm of stomach, unspecified; C78.6 Secondary malignant neoplasm of retroperitoneum and peritoneum; C78.00 Secondary malignant neoplasm of unspecified lung; J96.01 Acute respiratory failure with hypoxia; D63.0 Anemia in neoplastic disease; Z87.891 Personal history of nicotine dependence
CPT/HCPCS: 36415; 36430; 71275; 80048; 80053; 80202; 82550; 83605; 83690; 83880; 84145; 84484; 85007; 85025; 85610; 85730; 86140; 86850; 86900; 86901; 87040; 87633; 93005; 94640; 96365; 96367; 96375; 99284; 99285; P9016; C9113; J1170; J1650; J2405; J2543; J7613; Q9967

== ENCOUNTER 2023-07-17 11:51 | Inpatient (IN) | payer OTHER, MEDICAID, SELFPAY ==
[2023-07-14 03:09] VITALS: BMI 19.6
[2023-07-17] VITALS (14 sets, daily range): BP systolic 110–127; BP diastolic 70–96; PULSE 112–131; RESP 18–27; TEMP 36.5; O2SAT 98–100
--- NOTE | 2023-07-17 13:05 | ED.ABDPAIN ---
HPI - Abdominal Pain General Chief Complaint: Nasal Problem Stated Complaint: bloated, liquid coming from nose, HX of cancer Time Seen by Provider: 07/17/23 11:55 Source: patient Mode of arrival: Ambulatory History of Present Illness HPI narrative: Patient here with family. She is concerned she is having another bowel obstruction. She just was admitted here discharged here last month for bowel obstruction. No surgical intervention. It did resolve with NG tube. She states she is had some feed formula go through her nose when she lays flat. She feels distended in the abdomen. Patient states no flatus and no bowel movements recently. Please see notes below from discharge summary last month. 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 This is her 3rd visit to the ED this week she initially was seen and evaluated on 07/07/[address] scan ultimately diagnosed with pneumonia but no pulmonary embolism she was having shortness of breath at that time as well she is not currently having any abdominal pain. She reports that she is unable to lay down because she can not breathe she denies any fever she might be having a productive cough. She is really short of breath all the time. She is not having any worsening or new abdominal pain now. She says she is exhausted she has not been able to sleep due to difficulty breathing. Lost around 30 pounds in the last 3 months. Currently on TPN. Patient is not currently on chemotherapy last chemotherapy was about 3 months ago. She was admitted June 19 through the with a bowel obstruction she was discharged to help hospice care ever on July 01 decided to revoke hospice and would like to continue active treatment. Waiting for different medication. She is on continuous methadone for pain she is ongoing nausea vomiting she has continuous TPN she takes Haldol. Her oncologist is Dr Mario from [facility]. She was on palliative chemo but failed recently. Her resent PET scan on 07/01/23 is still pending final results. Initial Labs showed WBC 20, H/H 7.5/22.9, Plt 438, Na 121, LA 2.3, BG 120, AST 51, ALT 68, AF 338, Lipase 13, BNP 293, Tpn neg. CTA chest showed no PE, interval development of extensive bilateral pulmonary infiltrates concerning for aspiration pneumonia. Related Data Home Medications Medication Instructions Recorded Confirmed methadone 10 mg/mL oral concentrate 12 mg PO TID Pain 07/14/23 07/18/23 olanzapine 5 mg disintegrating 5 mg PO TID 07/18/23 07/18/23 tablet Previous Rx's Medication Instructions Recorded scopolamine base 1 mg over 3 days 1 patch transdermal Q3D PRN Nausea 03/25/23 transdermal patch And Vomiting #10 ea ondansetron 8 mg disintegrating 8 mg PO Q8H #30 tabs 07/15/23 tablet benzocaine 15 mg-menthol 2.6 mg 1 micheal PO Q1HR PRN Sore Throat #1 ea 07/20/23 lozenges (Cepacol Sore Throat (benzocaine-menthol)) dexamethasone 0.5 mg/5 mL oral 2 mg (20 mL) PO QID #500 mL 07/20/23 solution fentanyl 12 mcg/hr transdermal 12 mcg topical Q72H #5 ea 07/20/23 patch guaifenesin 100 mg/5 mL oral liquid 200 mg (10 mL) PO Q4HR PRN Cough 07/20/23 #473 mL lorazepam 2 mg/mL oral concentrate 1 mg (0.5 mL) PO Q2HR PRN Anxiety 07/20/23 (Lorazepam Intensol) #30 mL morphine 20 mg/5 mL (4 mg/mL) oral 20 mg (5 mL) PO Q2H PRN pain #30 mL 07/20/23 solution octreotide acetate 100 mcg/mL 50 mcg (0.5 mL) SUBCUT TID #10 mL 07/20/23 injection solution (Sandostatin) Allergies Allergy/AdvReac Type Severity Reaction Status Date / Time No Known Drug Allergies Allergy Verified 07/14/23 04:06 Review of Systems Review of Systems Narrative: GENERAL: negative chills, fatigue, malaise, fever, sweats. HEENT: negative sinus pain, ear pain, sore throat RESPIRATORY: negative dyspnea, cough CARDIOVASCULAR: negative chest pain, palpitations GASTROINTESTINAL: negative nausea, vomiting, positive abdominal pain : negative dysuria, frequency, hematuria MUSCULOSKELETAL: negative muscle or bony pain SKIN: negative rash, skin lesions NEUROLOGIC: negative weakness, numbness ROS Unobtainable: All systems reviewed & are unremarkable except as noted in HPI and below Patient History Medical History Healthy adult Family History Father Cancer Diabetes mellitus Grandmother Diabetes mellitus Father Cancer Aunt Cancer Social History household members: family and children Smoking Status: Former smoker alcohol intake: current Smoking Status: Former smoker tobacco type: vaping alcohol intake frequency: holidays/special occasions only Substance Use Type: does not use Exam Narrative Exam Narrative: GENERAL: in no distress, not toxic not dyspneic HEAD: Normocephalic. EYES: Pupils equal round ENT: Mucous membranes moist. NECK: Trachea midline. CARDIOVASCULAR: Regular rate and rhythm RESPIRATORY: Clear to auscultation. Breath sounds equal bilaterally. No wheezes, rales, or rhonchi. GASTROINTESTINAL: Abdomen soft, it is distended. Tympanic on percussion. Mild diffuse tenderness but no peritoneal signs. No CVA tenderness. EXTREMITIES: No gross deformities. BACK: No flank tenderness. NEURO: AOx4. SKIN: Warm and dry PSYCH: Not anxious, is cooperative Initial Vital Signs Initial Vital Signs: Vital Signs Temperature 97.7 F 07/17/23 11:56 Pulse Rate 131 H 07/17/23 11:56 Respiratory Rate 20 07/17/23 11:56 Blood Pressure 123/77 07/17/23 11:56 Pulse Oximetry 99 07/17/23 11:56 Oxygen Delivery Method Room Air 07/17/23 11:56 Course Orders Ordered: Discontinued Medications Benzocaine (Benzocaine/Menthol 1 Micheal Pkt) 1 each PO Q1HR PRN PRN Reason: Sore Throat Last Admin: 07/21/23 03:22 Dose: 1 each Documented By: Admin: 07/20/23 20:26 Dose: 1 each Documented By: Admin: 07/20/23 11:51 Dose: 1 each Documented By: Admin: 07/20/23 09:30 Dose: 1 each Documented By: Admin: 07/20/23 00:28 Dose: 1 each Documented By: Admin: 07/19/23 21:01 Dose: 1 each Documented By: Admin: 07/19/23 18:56 Dose: 1 each Documented By: BT Benzocaine (Benzocaine/Menthol 1 Micheal Pkt) 1 each PO Q1HR PRN PRN Reason: Sore Throat Benzocaine/Butamben/Tetracaine HCl (Tetracaine/Benzocaine/Butamben (Cetacaine) Bottle) 1 spray TOP PRN PRN PRN Reason: Sore Throat Last Admin: 07/21/23 08:14 Dose: 1 spray Documented By: Admin: 07/21/23 03:22 Dose: 1 spray Documented By: Admin: 07/21/23 01:28 Dose: 1 spray Documented By: Admin: 07/20/23 20:25 Dose: 1 spray Documented By: Admin: 07/20/23 15:47 Dose: 1 spray Documented By: Admin: 07/20/23 11:53 Dose: 1 spray Documented By: Admin: 07/20/23 00:14 Dose: 1 spray Documented By: Admin: 07/19/23 21:01 Dose: 1 spray Documented By: Admin: 07/19/23 06:46 Dose: 1 spray Documented By: Admin: 07/19/23 00:02 Dose: 1 spray Documented By: Admin: 07/18/23 11:58 Dose: 1 spray Documented By: MAURA Dexamethasone (Dexamethasone 4 Mg/Ml Vial) 4 mg IV Q6HR [facility] Last Admin: 07/21/23 06:15 Dose: 4 mg Documented By: Admin: 07/20/23 23:06 Dose: 4 mg Documented By: Admin: 07/20/23 16:54 Dose: 4 mg Documented By: Admin: 07/20/23 13:00 Dose: Not Given Documented By: Admin: 07/20/23 05:46 Dose: 4 mg Documented By: Admin: 07/19/23 23:30 Dose: 4 mg Documented By: Admin: 07/19/23 17:10 Dose: 4 mg Documented By: Admin: 07/19/23 12:33 Dose: 4 mg Documented By: [place] Fentanyl (Fentanyl 12 Mcg/Patch) 12 mcg TOP Q72H [facility] Last Admin: 07/18/23 18:50 Dose: 12 mcg Documented By: Guaifenesin (Guaifenesin Solution 100 Mg/5 Ml Udc) 200 mg PO Q4HR PRN PRN Reason: Cough Last Admin: 07/21/23 03:08 Dose: 200 mg Documented By: Admin: 07/20/23 06:29 Dose: 200 mg Documented By: KIMBERLY Heparin Sodium (Porcine) (Heparin 500 Unit/5 Ml Port Flush) 500 unit IV PRN PRN PRN Reason: Flush Last Admin: 07/17/23 17:41 Dose: 500 unit Documented By: SPF Hydromorphone HCl (Hydromorphone 2 Mg Inj) 2 mg IV Q2H PRN PRN Reason: Pain, Severe (7-10) Last Admin: 07/19/23 06:47 Dose: 2 mg Documented By: Admin: 07/19/23 03:30 Dose: 2 mg Documented By: Admin: 07/18/23 21:20 Dose: 2 mg Documented By: Admin: 07/18/23 18:43 Dose: 2 mg Documented By: Sodium Chloride (Normal Saline 0.9%) 1,000 mls @ 1,000 mls/hr IV BOLUS ONE Stop: 07/17/23 16:46 Last Infusion: 07/17/23 17:53 Dose: Infused Documented By: Admin: 07/17/23 15:59 Dose: 1,000 mls/hr Documented By: ZEINAB Lidocaine HCl (Lidocaine 2% (Glydo) 6 Ml Gel) 6 ml TOP NOW ONE Stop: 07/17/23 14:49 Last Admin: 07/17/23 15:40 Dose: 6 ml Documented By: SPF Lorazepam (Lorazepam 2 Mg/Ml Inj) 1 mg IV Q1HR PRN PRN Reason: Agitation/Anxiety Last Admin: 07/18/23 21:13 Dose: 1 mg Documented By: Admin: 07/18/23 19:27 Dose: 1 mg Documented By: Admin: 07/18/23 18:16 Dose: 1 mg Documented By: Admin: 07/18/23 05:56 Dose: 1 mg Documented By: (2) Admin: 07/17/23 21:45 Dose: 1 mg Documented By: (2) Lorazepam (Lorazepam 2 Mg/Ml Oral Evita) 1 mg PO Q2HR PRN PRN Reason: Anxiety Last Admin: 07/19/23 23:31 Dose: 1 mg Documented By: Admin: 07/19/23 21:01 Dose: 1 mg Documented By: Admin: 07/19/23 13:28 Dose: 1 mg Documented By: BT Methadone HCl (Methadone 10 Mg Tablet) 10 mg PO QID PRN PRN Reason: Pain, Severe (7-10) Last Admin: 07/19/23 23:30 Dose: 10 mg Documented By: KIMBERLY Methadone HCl (Methadone Intensol 10 Mg/Ml Oral.Conc) 12 mg PO TID [facility] Last Admin: 07/21/23 08:22 Dose: 12 mg Documented By: Admin: 07/20/23 20:22 Dose: 12 mg Documented By: Admin: 07/20/23 16:06 Dose: Not Given Documented By: Admin: 07/20/23 10:00 Dose: Not Given Documented By: NICK Morphine Sulfate (Morphine 4 Mg/Ml Inj) 4 mg IV NOW ONE Stop: 07/17/23 15:42 Last Admin: 07/17/23 16:00 Dose: 4 mg Documented By: ZEINAB Morphine Sulfate (Morphine 2 Mg/Ml Inj) 2 mg IV Q30MIN PRN PRN Reason: Pain/Dyspnea Last Admin: 07/18/23 19:48 Dose: 2 mg Documented By: Admin: 07/18/23 18:16 Dose: 2 mg Documented By: Admin: 07/18/23 14:32 Dose: 2 mg Documented By: Admin: 07/18/23 10:31 Dose: 2 mg Documented By: Admin: 07/18/23 05:22 Dose: 2 mg Documented By: MS(2) Admin: 07/18/23 02:36 Dose: 2 mg Documented By: MS(2) Admin: 07/17/23 21:40 Dose: 2 mg Documented By: (2) Morphine Sulfate (Morphine 10 Mg/0.5 Ml Oral Syringe) 10 mg PO Q1HR PRN PRN Reason: Pain, Severe (7-10) Morphine Sulfate (Morphine 10 Mg/0.5 Ml Oral Syringe) 20 mg PO Q1HR PRN PRN Reason: Pain, Severe (7-10) Last Admin: 07/18/23 14:00 Dose: 20 mg Documented By: MAURA Morphine Sulfate (Morphine 10 Mg/0.5 Ml Oral Syringe) 30 mg PO Q1HR PRN PRN Reason: Pain, Severe (7-10) Morphine Sulfate (Morphine 10 Mg/0.5 Ml Oral Syringe) 10 mg PO Q2HR PRN PRN Reason: Pain, Moderate (4-6) Last Admin: 07/20/23 19:48 Dose: 10 mg Documented By: Admin: 07/20/23 10:08 Dose: 10 mg Documented By: Admin: 07/19/23 22:05 Dose: 10 mg Documented By: KIMBERLY Morphine Sulfate (Morphine 10 Mg/0.5 Ml Oral Syringe) 10 mg PO Q4HR [facility] Morphine Sulfate (Morphine 10 Mg/0.5 Ml Oral Syringe) 15 mg PO Q4HR [facility] Last Admin: 07/21/23 08:14 Dose: 15 mg Documented By: Admin: 07/21/23 06:15 Dose: 15 mg Documented By: Admin: 07/21/23 01:27 Dose: 15 mg Documented By: Admin: 07/20/23 23:06 Dose: 15 mg Documented By: Admin: 07/20/23 16:54 Dose: 15 mg Documented By: Admin: 07/20/23 13:00 Dose: Not Given Documented By: Admin: 07/20/23 08:35 Dose: 15 mg Documented By: Admin: 07/20/23 05:46 Dose: 15 mg Documented By: Admin: 07/20/23 00:13 Dose: 15 mg Documented By: Admin: 07/19/23 19:39 Dose: 15 mg Documented By: Admin: 07/19/23 15:27 Dose: 15 mg Documented By: Admin: 07/19/23 13:27 Dose: Not Given Documented By: ALMAZ Octreotide Acetate (Octreotide 100 Mcg/Ml Vial) 50 mcg SUBCUT TID [facility] Last Admin: 07/21/23 08:22 Dose: 50 mcg Documented By: Admin: 07/20/23 20:57 Dose: 50 mcg Documented By: Admin: 07/20/23 16:06 Dose: Not Given Documented By: Admin: 07/20/23 08:44 Dose: 50 mcg Documented By: Admin: 07/19/23 19:44 Dose: 50 mcg Documented By: Admin: 07/19/23 15:27 Dose: 50 mcg Documented By: Admin: 07/19/23 10:26 Dose: 50 mcg Documented By: BT Ondansetron HCl (Ondansetron 4 Mg/2 Ml Inj) 4 mg IV NOW ONE Stop: 07/17/23 15:42 Last Admin: 07/17/23 16:00 Dose: 4 mg Documented By: ZEINAB Ondansetron HCl (Ondansetron 4 Mg/2 Ml Inj) 4 mg IV Q4HR PRN PRN Reason: Nausea And Vomiting Last Admin: 07/19/23 10:28 Dose: 4 mg Documented By: Admin: 07/19/23 03:30 Dose: 4 mg Documented By: Admin: 07/18/23 18:31 Dose: 4 mg Documented By: Ondansetron HCl (Ondansetron 4 Mg Odt) 4 mg SL Q4HR PRN PRN Reason: Nausea Last Admin: 07/21/23 02:14 Dose: 4 mg Documented By: Admin: 07/20/23 20:22 Dose: 4 mg Documented By: Admin: 07/20/23 05:59 Dose: 4 mg Documented By: Admin: 07/19/23 19:39 Dose: 4 mg Documented By: KIMBERLY Scopolamine (Scopolamine 1 Patch) 1 patch TOP Q3D PRN PRN Reason: Nausea And Vomiting Last Admin: 07/20/23 05:58 Dose: 1 patch Documented By: KIMBERLY Vital Signs Vital signs: Vital Signs - 8 hr 07/17/23 11:56 07/17/23 13:38 07/17/23 13:39 Temperature 97.7 F Pulse Rate 131 H 117 H Respiratory Rate 20 22 Blood Pressure 123/77 110/76 Pulse Oximetry 99 100 Oxygen Delivery Method Room Air 07/17/23 13:39 07/17/23 14:00 07/17/23 14:00 Temperature Pulse Rate 117 H 114 H Respiratory Rate 24 19 Blood Pressure 112/71 Pulse Oximetry 100 100 Oxygen Delivery Method Room Air 07/17/23 14:33 07/17/23 15:00 07/17/23 15:24 Temperature Pulse Rate 124 H 126 H 126 H Respiratory Rate 24 27 H Blood Pressure Pulse Oximetry 100 Oxygen Delivery Method Room Air 07/17/23 15:24 07/17/23 15:30 07/17/23 15:30 Temperature Pulse Rate 130 H Respiratory Rate 24 Blood Pressure 125/80 123/80 Pulse Oximetry Oxygen Delivery Method 07/17/23 16:00 07/17/23 16:00 07/17/23 16:30 Temperature Pulse Rate 122 H Respiratory Rate 22 Blood Pressure 123/76 127/80 Pulse Oximetry 99 Oxygen Delivery Method Room Air 07/17/23 16:30 07/17/23 17:00 07/17/23 17:00 Temperature Pulse Rate 117 H 112 H Respiratory Rate 19 18 Blood Pressure 122/74 Pulse Oximetry 100 100 Oxygen Delivery Method Room Air Room Air 07/17/23 17:30 07/17/23 17:30 Temperature Pulse Rate 113 H Respiratory Rate 20 Blood Pressure 122/70 Pulse Oximetry 98 Oxygen Delivery Method Room Air MDM - Abdominal Pain Lab Data 07/17/23 13:35 07/17/23 13:35 Labs: Lab Results 07/17/23 Range/Units 13:35 WBC 14.5 H (4.5-11.0) X10^3/uL RBC 3.48 L (4.0-5.2) X10^6/uL Hgb 8.6 L (12.0-16.0) g/dL Hct 26.4 L (36-46) % MCV 75.8 L (80-100) fL MCH 24.9 L (26-34) PG MCHC 32.8 (30-36) % RDW 23.2 H (11.6-14.8) % Plt Count 375 (150-400) X10^3/uL Neut % (Auto) Not Reportable Lymph % (Auto) Not Reportable Placer % (Auto) Not Reportable Eos % (Auto) Not Reportable Baso % (Auto) Not Reportable Lymph # (Auto) Not Reportable Placer # (Auto) Not Reportable Baso # (Auto) Not Reportable Total Counted 100 Seg Neutrophils % 81.0 H (38-70) % Band Neutrophils % 7.0 (3-7) % Lymphocytes % (Manual) 7.0 L (25-45) % Monocytes % (Manual) 3.0 (2-11) % Metamyelocytes % 2.0 H (-0) % Neutrophils # (Manual) 33242 H (2666-3193) /uL Toxic Granulation Present H RBC Morphology See below Polychromasia 1+ H Hypochromasia 1+ H Anisocytosis 2+ H Microcytosis 2+ H Sodium 128 L (137-145) mmol/L Potassium 3.3 L (3.4-5.1) mmol/L Chloride 94 L (98-107) mmol/L Carbon Dioxide 26 (22-32) mmol/L BUN 20 H (7-17) mg/dL Creatinine 0.45 L (0.52-1.04) mg/dL Estimated GFR > 60 (>60) mL/min BUN/Creatinine Ratio 44.4 H (6-22) Glucose 147 H (70-100) mg/dL Calcium 8.6 (8.4-10.2) mg/dL Total Bilirubin 0.8 (0.2-1.3) mg/dL AST 33 (14-36) IU/L ALT 41 H (<35) IU/L Alkaline Phosphatase 338 H (38-126) U/L Total Protein 6.3 (6.3-8.2) g/dL Albumin 2.8 L (3.5-5.0) g/dL Globulin 3.5 (1.7-4.1) g/dL Albumin/Globulin Ratio 0.8 L (1.0-2.8) Imaging Data CT scan - abdomen/pelvis: Radiologist's Impression: [place] [address] CT Scan Report Signed Patient: Niecy Laguerre MR#: [id number] : 1995 Acct:[id number] Age/Sex: 28 / F Date of Service: 07/17/23 Loc: ED Accession Number: [id number] Procedure: CT abdomen pelvis wo con Ordering Provider: Bal Guy MD PROCEDURE: CT ABDOMEN PELVIS WO CON INDICATIONS: Bowel obstruction TECHNIQUE: Noncontrast 5 mm thick sections acquired from the diaphragms to the symphysis. 5 mm coronal and sagittal reformats were then performed. For radiation dose reduction, the following was used: automated exposure control, adjustment of mA and/or kV according to patient size. COMPARISON: [facility], CT, CT ABDOMEN PELVIS W CON, 07/07/2023, 13:12. FINDINGS: Image quality: Excellent. ABDOMEN: Lung bases: Patchy ground-glass and consolidative opacities within the left lower lobe and lingula and to a lesser extent within the right lower and middle lobes. Heart is normal in size. Dilated esophagus filled with debris measuring up to 4 centimeters in transverse dimension. Solid organs: Liver is normal in size. Mild hepatic steatosis. Gallbladder contains gallstones . Pancreas is normal in contours. Spleen is normal in size. Thickening and nodularity of the left adrenal gland, which may represent metastatic implant. The right adrenal gland is unremarkable. Kidneys are normal in size, without hydronephrosis or nephrolithiasis. Peritoneum and bowel: Markedly dilated loops of proximal small bowel measure up to 4.7 centimeters with air-fluid levels. The distal small bowel is collapsed, consistent with obstruction. Transition point is likely summer within the mid abdomen, not seen. Thickening of the gastric wall is redemonstrated. Increased moderate volume ascites.. Nodes and vessels: No retroperitoneal or mesenteric adenopathy by size criteria. Aorta and inferior vena cava are normal in caliber. Miscellaneous: No ventral hernias. PELVIS: Genitourinary: Bilateral pelvic implants are redemonstrated and similar appearance to prior.. Miscellaneous: No inguinal hernias or adenopathy. Bones: No suspicious bony lesions. No vertebral body compression fractures. IMPRESSION: 1. Worsening small bowel obstruction with increased dilatation of fluid-filled loops of small bowel. Transition point likely within the mid abdomen with decompressed loops of small bowel distally. Recommend surgical consultation. 2. Increased ascites compared to prior, likely reactive from small bowel obstruction. No extraluminal gas is identified.. 3. Patchy consolidative and ground-glass opacities are seen within the left greater than right visualized lower lung jerry, consistent with infection. 4. Again seen wall thickening of the stomach, not well evaluated on this noncontrast exam. 5. Marked dilatation of the esophagus, increased compared to prior containing fluid and debris. 6. Pelvic serosal implants are redemonstrated. Dictated by: Dio Estes M.D. on 07/17/2023 at 13:23 Approved by: Dio Estes M.D. on 07/17/2023 at 13:34 [facility] Narrative Medical decision making narrative: Patient here with family. She is concerned she is having another bowel obstruction. She just was admitted here discharged here last month for bowel obstruction. No surgical intervention. It did resolve with NG tube. She states she is had some feed formula go through her nose when she lays flat. She feels distended in the abdomen. Patient states no flatus and no bowel movements recently. Please see notes below from discharge summary last month. After history and exam CBC CMP CT abdomen pelvis MDM CC: Abdominal discomfort Complicating co-morbidities: Gastric cancer recent bowel obstruction discharge 2 days ago Data collected from: Patient and family Medical records reviewed: Discharge summary from 2 days ago Differential considered: Includes but not limited to bowel obstruction bowel perforation worsening cancer Exam documented above, pertinent findings include: Distended abdomen Lab Test results independently reviewed as above. Pertinent findings: WBC 14.5 hemoglobin 8.6 Imaging studies independently reviewed: CT abdomen pelvis bowel obstruction worsening Consultations: 2:04 p.m.. Spoke with hospitalist, Dr. Gomez, for admission, he just discharge patient to days ago. He would like to wait to see what general surgery would like to advice. 2:[address] Buenrostro, general surgery, recommends NG tube and IV fluids. He will follow in consult. He would talk to her about possible hospice care again, if not PEG tube is a possibility however, would not be optimal. Given patient's progression of cancer. 3:[address] Gomez has recommended patient be transferred with oncology service and more definitive care as CT is concerning for worsening with cancer and patient's care here will not resolve any problems and may recur despite treatment here. I spoke with patient family., they do understand need for transfer. Patient already had admission here without any improvement. 3:55 p.m.. I spoke with Dr. Mario, patient's oncologist. Patient is not not a surgical candidate. There is no other treatment available for patient. He would like the patient to have conversation about hospice care. Transferring patient would not change any management. 4:00 p.m.. I spoke with Dr. Buenrostro again. He would not recommend any surgeries at this time. He would be happy to talk to patient about her situation and recommendations. 4:30 p.m.. I spoke with Dr. Gomez, he will see patient and family. At this time he does not think patient should be admitted but get social work to see patient to reinstitute hospice care. Dr. Gomez has called back. No social work in the ER available for the next 4 days, he will admit patient Treatments: NG tube Re-evaluations: Updated patient and family results. Bowel obstruction has returned. Will need admission. They do agree and understand. 4:28 p.m.. I have spoken with patient and family with Dr. Mario, patient's oncologist by speaker phone in patient's room. He has clearly communicated with them and they verbalized understanding that hospice is the only option now. No further treatments would help patient for her cancer. Discussion: Appropriate for admission as patient will require surgical consult for bowel obstruction. I did speak with Dr. Gomez, he will see patient for admission. Patient has had discussion with myself and Dr. Mario, with speaker phone in the room. Family at bedside as well. Patient will pursue hospice care. Dr. Mario has conveyed this to them that hospice would be the best route to go. Diagnosis: Bowel obstruction Discharge Plan Departure Patient Disposition: Admitted as Observation Clinical Impression: Bowel obstruction Qualifiers: Intestinal obstruction type: unspecified Intestinal obstruction extent: unspecified extent Qualified Code(s): K56.609 - Unspecified intestinal obstruction, unspecified as to partial versus complete obstruction Admit Date/Time: 07/17/23 17:43 Admit Provider: Keon Gomez
[2023-07-17 13:50] LABS: Hematocrit 26.4 % (36-46); Hemoglobin 8.6 g/dL (12.0-16.0); Mean Corpuscular HGB Conc 32.8 % (30-36); Mean Corpuscular Hemoglobin 24.9 PG (26-34); Mean Corpuscular Volume 75.8 fL (80-100); Platelet Count 375 X10^3/uL (150-400); Red Blood Cell Count 3.48 X10^6/uL (4.0-5.2); Red Cell Distribution Width 23.2 % (11.6-14.8); White Blood Cell Count 14.5 X10^3/uL (4.5-11.0)
[2023-07-17 13:51] LABS: Add Manual Diff / Slide Review YES
[2023-07-17 13:58] LABS: Neutrophils Absolute Manual 12760 /uL (3000-5900); Total Cells Counted 100
[2023-07-17 14:03] LABS: Anisocytosis 2+; Microcytosis 2+; Polychromasia 1+; Toxic Granulation Present
[2023-07-17 14:04] LABS: Hypochromasia 1+
[2023-07-17 14:05] LABS: Alanine Aminotransferase 41 IU/L (<35); Albumin 2.8 g/dL (3.5-5.0); Albumin Globulin Ratio 0.8 (1.0-2.8); Alkaline Phosphatase 338 U/L (38-126); Aspartate Aminotransferase 33 IU/L (14-36); BUN Creatinine Ratio 44.4 (6-22); Bilirubin Total 0.8 mg/dL (0.2-1.3); Blood Urea Nitrogen 20 mg/dL (7-17); Calcium 8.6 mg/dL (8.4-10.2); Carbon Dioxide 26 mmol/L (22-32); Chloride 94 mmol/L (98-107); Estimated Glomerular Filt Rate > 60 mL/min (>60); Globulin 3.5 g/dL (1.7-4.1); Glucose 147 mg/dL (70-100); HEMOLYSIS < 15 (0-50); Potassium 3.3 mmol/L (3.4-5.1); Sodium 128 mmol/L (137-145); Total Protein 6.3 g/dL (6.3-8.2)
--- NOTE | 2023-07-17 14:05 | DI.RAD.S_ITS ---
PROCEDURE: XR ABDOMEN 1V INDICATIONS: NG tube placement TECHNIQUE: One view of the abdomen acquired. COMPARISON: [facility], CT, CT ABDOMEN PELVIS WO CON, 07/17/2023, 13:10. [facility], CT, CT ANGIO CHEST PE PROTOCOL, 07/14/2023, 0:59. FINDINGS: Surgical changes and devices: NG tube tip projects to the body of the stomach. Right chest Port-A-Cath. Lung jerry: Left-sided pneumonia. Bowel: Small bowel obstruction is present. Soft tissues: No suspicious abdominal calcifications. Visualized solid organ contours appear normal in size. Bones: No suspicious bony lesions. IMPRESSION: 1. NG tube projects to the body of the stomach. 2. Small bowel obstruction. 3. Left-sided pneumonia. Dictated by: Antoni Bird M.D. on 07/17/2023 at 16:07 Approved by: Antoni Bird M.D. on 07/17/2023 at 16:09
--- NOTE | 2023-07-17 15:30 | PC.NURSE ---
Pt tolerated NG tube insertion and vomitted 100cc durring insertion. Initial 16 divehi would not advance past nares, 14french required. Draining to intermittent suction. Pt complains of abdominal pain 03/17, provider notified. New orders in NOV.
[2023-07-17] MEDS: LIDOCAINE 2% (GLYDO) 6 ML GEL TOP (15:40)
[2023-07-17] MEDS: SODIUM CHLORIDE 0.9% 1,000 ML 1000 ML IV (15:59)
[2023-07-17] MEDS: MORPHINE 4 MG/ML INJ IV (16:00)
[2023-07-17] MEDS: ONDANSETRON 4 MG/2 ML INJ IV (16:00)
--- NOTE | 2023-07-17 19:09 | PC.NURSE ---
Addendum entered by Brooklynn Bal R.N. 07/17/23 19:16: NGT to LIWS connected Original Note: Patient arrived to room 217 at 1900. She is A&OX4, VSS, HR tachycardic in 110's on RA.She reports pain to abdomen 5/10. Admission nursing assessment completed, and oriented to room routine, bed alarm placed, call light in reach. Endorsed admission assessment and orders to arriving torpedo shooter RN.
[2023-07-17] MEDS: MORPHINE 2 MG/ML INJ IV (21:40)
[2023-07-17] MEDS: LORazepam 2 MG/ML INJ 1 MG IV (21:45)
[2023-07-18] MEDS: MORPHINE 2 MG/ML INJ IV ×6 (02:36→19:48)
[2023-07-18] MEDS: LORazepam 2 MG/ML INJ 1 MG IV ×4 (05:56→21:13)
[2023-07-18] MEDS: TETRACAINE/BENZOCAINE/BUTAMBEN (CETACAINE) BOTTLE 1 SPRAY TOP (11:58)
--- NOTE | 2023-07-18 13:07 | PM.HP.1 ---
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 CT scan performed in the ER showed a bowel obstruction. She had recently come off of hospice. Initially I recommended transfer for higher level of care. However both oncology and surgery denied any interventions for her, and she elected for resumption of hospice. An NG tube has been placed, and she continues to have siginificant severe pain today. She was admitted for further pain control, as well as an inability to discharge home due to new NG tube placement. [facility] Medical History Healthy adult Family History Father Cancer Diabetes mellitus Grandmother Diabetes mellitus Father Cancer Aunt Cancer Social History household members: family and children Smoking Status: Former smoker alcohol intake: current Meds Home Medications and Allergies Home Medications Medication Instructions Recorded Confirmed Type sennosides 8.6 mg-docusate sodium 2 tab-cap (2 x 8.6-50 mg) PO BID 11/02/22 07/14/23 Rx 50 mg capsule (Senna Plus) #60 caps morphine 30 mg immediate release 30 mg PO Q6H PRN pain #120 tabs 11/27/22 07/14/23 Rx tablet fluorouracil 2.5 gram/50 mL 4,000 mg IV NOW CHEMOTHERAPY #1 12/17/22 07/14/23 Rx intravenous solution device prochlorperazine maleate 10 mg 10 mg PO Q6H PRN Nausea #30 tabs 03/25/23 07/14/23 Rx tablet (Compazine) scopolamine base 1 mg over 3 days 1 patch transdermal Q3D PRN Nausea 03/25/23 07/14/23 Rx transdermal patch And Vomiting #10 ea dexamethasone 4 mg tablet 4 mg PO DAILY 07/14/23 07/14/23 History methadone 10 mg/mL oral concentrate 12 mg PO TID Pain 07/14/23 07/14/23 History amoxicillin 875 mg-potassium 1 tab PO Q12H 5 days #10 tabs 07/15/23 Rx clavulanate 125 mg tablet doxycycline hyclate 100 mg tablet 100 mg PO BID 5 days #10 tabs 07/15/23 Rx ondansetron 8 mg disintegrating 8 mg PO Q8H #30 tabs 07/15/23 Rx tablet Allergies Allergy/AdvReac Type Severity Reaction Status Date / Time No Known Drug Allergies Allergy Verified 07/14/23 04:06 Review of Systems Review of Systems Narrative: All other systems reviewed with the patient and are negative unless otherwise stated. Exam Vital Signs (past 8 hours): Oxygen Delivery Method Room Air Narrative Exam Narrative: GEN: fatigued, lethargic, NG in place HEENT: dry MM, PERRL NECK: trachea midline, no JVD PULM: clear bilaterally, no wheezes, rhonchi, rales CV: tachycardic no murmurs ABD: soft, NT ND EXT: warm and well perfused with no edema NEURO: awake but fatigued, no focal deficits Objective Labs 07/17/23 13:35 07/17/23 13:35 Labs: Laboratory Results - last 24 hr 07/17/23 13:35 WBC 14.5 H RBC 3.48 L Hgb 8.6 L Hct 26.4 L MCV 75.8 L MCH 24.9 L MCHC 32.8 RDW 23.2 H Plt Count 375 Neut % (Auto) Not Reportable Lymph % (Auto) Not Reportable [place] % (Auto) Not Reportable Eos % (Auto) Not Reportable Baso % (Auto) Not Reportable Lymph # (Auto) Not Reportable [place] # (Auto) Not Reportable Baso # (Auto) Not Reportable Total Counted 100 Seg Neutrophils % 81.0 H Band Neutrophils % 7.0 Lymphocytes % (Manual) 7.0 L Monocytes % (Manual) 3.0 Metamyelocytes % 2.0 H Neutrophils # (Manual) 62341 H Toxic Granulation Present H RBC Morphology See below Polychromasia 1+ H Hypochromasia 1+ H Anisocytosis 2+ H Microcytosis 2+ H Sodium 128 L Potassium 3.3 L Chloride 94 L Carbon Dioxide 26 BUN 20 H Creatinine 0.45 L Estimated GFR > 60 BUN/Creatinine Ratio 44.4 H Glucose 147 H Calcium 8.6 Total Bilirubin 0.8 AST 33 ALT 41 H Alkaline Phosphatase 338 H Total Protein 6.3 Albumin 2.8 L Globulin 3.5 Albumin/Globulin Ratio 0.8 L Assessment & Plan Assessment & Plan narrative: 1. Acute small bowel obstruction - patient is not a surgical candidate per discussions with General surgeon bacon skin lifter. - etiology is secondary to active malignancy, there are no further treatment options and had her oncologist speak with her in the emergency room yesterday. - current plan is to continue pain control with IV and morphine concentrate, continue NG tube and patient wishes to return home on hospice as soon as possible. Will need hospice to re-open and to obtain equipment for NG tube at home prior to discharge. 2. Metastatic gastric adenocarcinoma -not curative -did recently start folfox and nivolumab but no further treatments per oncology whom discussed with patient and family in the ER. 3. Severe protein calorie malnutrition - had been on TPN. Given goals of care will not order at this time. CODE: Full Proxy: Sofia Woo, mother I have utilized all available immediate resources to obtain, update, or review the patient's current medications. Discussed care with case management, ER physician yesterday extensively,
[2023-07-18] MEDS: MORPHINE 10 MG/0.5 ML ORAL SYRINGE 20 MG PO (14:00)
[2023-07-18] MEDS: ONDANSETRON 4 MG/2 ML INJ IV (18:31)
[2023-07-18] MEDS: HYDROMORPHONE 2 MG INJ IV ×2 (18:43→21:20)
[2023-07-18] MEDS: fentaNYL 12 MCG/PATCH TOP (18:50)
--- NOTE | 2023-07-18 18:54 | PC.NURSE ---
Pt appears to be pale, is actively having nausea holding emesis bag, reports abd. pain is 8-9/10. Provider informed of the pt's pain after having given the pt IV morphine and IV Ativan for pt's anxiety. Placed Fentanyl patch on pt's Left upper arm with tegaderm over the top of the patch. Lights dimmed to help to reduce stimuli and to allow pt to rest.
[2023-07-18 18:58] VITALS: BP 113/78; PULSE 137; RESP 22; TEMP 36.6; O2SAT 100
[2023-07-19] MEDS: TETRACAINE/BENZOCAINE/BUTAMBEN (CETACAINE) BOTTLE 1 SPRAY TOP ×3 (00:02→21:01)
[2023-07-19] MEDS: ONDANSETRON 4 MG/2 ML INJ IV ×2 (03:30→10:28)
[2023-07-19] MEDS: HYDROMORPHONE 2 MG INJ IV ×2 (03:30→06:47)
[2023-07-19 09:00] VITALS: BP 105/66; PULSE 143; RESP 16; TEMP 36.6; O2SAT 99
[2023-07-19] MEDS: OCTREOTIDE 100 MCG/ML VIAL 50 MCG SUBCUT ×3 (10:26→19:44)
--- NOTE | 2023-07-19 11:50 | PM.PN.1 ---
Subjective Subjective Interval history: 28-year-old female with metastatic gastrointestinal carcinoma with associated malignant bowel obstruction. She was admitted from July 14 through July 15, but was readmitted on July 18 with uncontrolled symptoms. Today, she reports the desire to discharge home. She expresses anxiety with being in the hospital. She is also away from her children who are ages 2 and 6. She would recently been on hospice but revoked for hospitalization. She is now decided she would like to resume hospice treatment. Currently, she rates her pain at 5/10. This morning, her NG tube got clogged and was discontinued. She declined having another tube placed. Exam Vital Signs (past 8 hours): - 07/19/23 09:00 Temperature 97.8 F Pulse Rate 143 H Respiratory Rate 16 Blood Pressure 105/66 Pulse Oximetry 99 Oxygen Flow Rate 0 Oxygen Delivery Method Room Air Oxygen Flow Rate 0 Narrative Exam Narrative: GEN: Chronically-ill appearing adult female, thin, drowsy but oriented x 3, NAD HEENT:NC, Face symmetric CHEST: Respiratory excursions symmetric, crackles to the left base, clear on the right CV: Tachycardic with regular rhythm, no M/R/G ABD: Soft, moderately distended, BT scant, moderately tender to palpation EXTR: warm, well perfused, no C/C, trace left lower extremity edema no edema to the right SKIN: warm and dry, no rash NEURO: Drowsy but oriented x 3, nonfocal Objective Labs 07/17/23 13:35 07/17/23 13:35 [facility] Medical History Healthy adult Family History Father Cancer Diabetes mellitus Grandmother Diabetes mellitus Father Cancer Aunt Cancer Social History household members: family and children Smoking Status: Former smoker alcohol intake: current Assessment & Plan Assessment & Plan narrative: 1. Metastatic hereditary gastric adenocarcinoma with malignant bowel obstruction Patient has elected to discharge and return to hospice care. I have added octreotide subcu 50 mg t.i.d. to help reduce GI secretions. Will also restart scopolamine patch for nausea and secretions. I have ordered IV dexamethasone 4 mg q.6 as we do not have liquid dexamethasone here. However, would recommend a trial of oral liquid upon discharge to reduce symptoms related to her bowel obstruction. I will schedule morphine concentrate for now. She does have compounded liquid methadone at. That will be resumed upon her return home. Will discontinue IV hydromorphone and morphine. Liquid lorazepam is also available as needed. Adding ondansetron ODT as well. She remains on a fentanyl 12 mcg patch. 2. Severe protein calorie malnutrition She is off of TPN given her goals care. 3. Tachycardia Likely physiologic due to end-stage disease. Code status DNR Prophylaxis No chemical prophylaxis due to goals of care Disposition We discussed her remaining in the hospital for 1 more night while we adjust medications for comfort and get her off of the IV medications. She can be admitted back to hospice of the [place] on July 21.
[2023-07-19] MEDS: DEXAMETHASONE 4 MG/ML VIAL IV ×3 (12:33→23:30)
[2023-07-19] MEDS: LORazepam 2 MG/ML ORAL SOL 1 MG PO ×3 (13:28→23:31)
--- NOTE | 2023-07-19 14:05 | CM.DANOTE ---
Initial DCP Assessment Note Pt is a 28 yo female, resident of [place], arrives w/SBO related to metastatic stomach cancer. Patient and family have chosen to return home w/hospice service PCP: Yaneli Brewer Payer: [facility] Met w/patient and her two brothers at bedside, joint visit with Dr Petersen. Introduced self and reviewed discharge plan. Referral initiated to [facility] yesterday. patient and family agreeable to this, patient is eager to return home as soon as possible. Discussed medication management. Patient does not want NG tube in at this time and does not want at home. Dr Petersen planning on transitioning patient off IV to po and sublingual medications over the next 24 hours- aiming for patient's discharge home tomorrow w/family support. [facility] holding a slot to open services Friday07.21.23 between [id number]. Strongly encouraged patient's brothers to access [facility] grief and bearvement program. Plan: Discharge home w/supportive family anticipated tomorrow as long as patient has a good pain medication regimen by mouth/sublingual, transport via family, [facility] RN to see patient in her home Friday morning between [id number]. CM team will plan to follow closely for coordination of DCP. Fax DC Summary to [facility] once it is available. 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 Yes Advance Directives on File No History Provided By Patient,Family Member,Medical Record Has Patient been admitted in last 30 Yes days? Comment Here 11.6-11.7 Prior Living Arrangements House Household Members children,family Type of transporation used prior to Relies on Others admit Independent with ADL's Yes: Poor activity tolerance Is patient alert and oriented? Yes Needs Assistance With Bathing,Grooming,Meal Prep, Managing Medications,Home Chores / Shopping Barriers to Discharge No Comment Home w/family and [facility] Discharge Plan Hospice Transportation Arrangement Family to provide transportation Referrals Initiated Other Additional Comment Home w/Hospice [facility]
[2023-07-19] MEDS: MORPHINE 10 MG/0.5 ML ORAL SYRINGE 15 MG PO ×2 (15:27→19:39)
[2023-07-19] MEDS: BENZOCAINE/MENTHOL 1 LOZ PKT 1 EACH PO ×2 (18:56→21:01)
[2023-07-19] MEDS: ONDANSETRON 4 MG ODT SL (19:39)
[2023-07-19] MEDS: MORPHINE 10 MG/0.5 ML ORAL SYRINGE PO (22:05)
[2023-07-19] MEDS: METHADONE 10 MG TABLET PO (23:30)
[2023-07-20] MEDS: MORPHINE 10 MG/0.5 ML ORAL SYRINGE 15 MG PO ×5 (00:13→23:06)
[2023-07-20] MEDS: TETRACAINE/BENZOCAINE/BUTAMBEN (CETACAINE) BOTTLE 1 SPRAY TOP ×4 (00:14→20:25)
[2023-07-20] MEDS: BENZOCAINE/MENTHOL 1 LOZ PKT 1 EACH PO ×4 (00:28→20:26)
[2023-07-20] MEDS: DEXAMETHASONE 4 MG/ML VIAL IV ×3 (05:46→23:06)
[2023-07-20] MEDS: SCOPOLAMINE 1 PATCH TOP (05:58)
[2023-07-20] MEDS: ONDANSETRON 4 MG ODT SL ×2 (05:59→20:22)
[2023-07-20] MEDS: guaiFENesin Solution 100 MG/5 ML UDC 200 MG PO (06:29)
--- NOTE | 2023-07-20 06:48 | PC.NURSE ---
Patient is independent in the room, ambulates to the bathroom. No BM overnight, patient states that she is passing gas, hypoactive bowel sounds heard in all quadrants. Patient experienced nausea w/ x2 episodes of emesis (brownish/green colored), SL Zofran given & Scopolamine patch placed behind left ear. Pain 03/17 somewhat controlled w/ scheduled Morphine, patient requested Methadone which is what she takes at home TID, notified MD Kelsey, new orders received, x1 dose given @ 2330. Patient experiencing dry cough throughout the night unrelieved by ordered Cetacaine spray & oral lozenges. MD Kelsey notified, Robitussin ordered & given.
[2023-07-20] MEDS: OCTREOTIDE 100 MCG/ML VIAL 50 MCG SUBCUT ×2 (08:44→20:57)
[2023-07-20 09:00] VITALS: BP 128/77; PULSE 129; RESP 16; TEMP 36.9; O2SAT 97
[2023-07-20] MEDS: MORPHINE 10 MG/0.5 ML ORAL SYRINGE PO ×2 (10:08→19:48)
--- NOTE | 2023-07-20 15:27 | PM.PN.1 ---
Subjective Subjective Interval history: 28-year-old female with metastatic gastrointestinal carcinoma with associated malignant bowel obstruction. She was admitted from July 14 through July 15, but was readmitted on July 18 with uncontrolled symptoms. Yesterday morning, her NG tube became clogged. It was removed with plans for replacement with a larger tube. However, Niecy did not wish for it to be replaced. She initiated on octreotide subcu as well as dexamethasone in hopes to reduce GI secretions. Scopolamine patch was also placed to reduce GI secretions. She restarted for methadone concentrate overnight. She reports she had emesis twice overnight. She rates her pain as 7/10 and is currently asking for medication. While yesterday, she asked to be discharged as early as possible today, today she states she is reluctant to discharge until tomorrow when additional nursing support is available with hospice. Her admission is scheduled between and tomorrow. Exam Vital Signs (past 8 hours): - 07/20/23 09:00 Temperature 98.5 F Pulse Rate 129 H Respiratory Rate 16 Blood Pressure 128/77 Pulse Oximetry 97 Oxygen Flow Rate 0 Oxygen Delivery Method Room Air Oxygen Flow Rate 0 Narrative Exam Narrative: GEN: Chronically-ill appearing adult female, thin, drowsy oriented x 2 HEENT:NC, Face symmetric CHEST: Respiratory excursions symmetric, diminished but clear bilaterally CV: Tachycardic with regular rhythm, no M/R/G ABD: Soft, moderately distended, BT scant, moderately tender to palpation EXTR: warm, well perfused, no C/C, trace left lower extremity edema no edema to the right SKIN: warm and dry, no rash NEURO: Drowsy, oriented x2 Objective Labs 07/17/23 13:35 07/17/23 13:35 [facility] Medical History Healthy adult Family History Father Cancer Diabetes mellitus Grandmother Diabetes mellitus Father Cancer Aunt Cancer Social History household members: family and children Smoking Status: Former smoker alcohol intake: current Assessment & Plan Assessment & Plan narrative: 1. Metastatic hereditary gastric adenocarcinoma with malignant bowel obstruction Patient has elected to discharge and return to hospice care. I have added octreotide subcu 50 mg t.i.d., IV dexamethasone (no liquid dexamethasone available), and scopolamine patch to help reduce GI secretions and hopefully better control her nausea. Continue methadone concentrate, fentanyl patch, and morphine as needed. Liquid lorazepam is also available as needed. 2. Severe protein calorie malnutrition She is off of TPN given her goals care. 3. Tachycardia Likely physiologic due to end-stage disease. Code status DNR Prophylaxis No chemical prophylaxis due to goals of care Disposition Plans were in place for discharge this morning. However, she would like to remain for an additional day, such that she and her family have resources available after she returns home. Plan is for admission between 10 and 11 tomorrow. She should be discharged tomorrow morning by about 930 in order to achieve that. Discharge orders have been completed in anticipation of an early discharge tomorrow.
--- NOTE | 2023-07-20 15:59 | CM.DPC ---
DCP Continued: STAVE CUTTER reviewed EMR. Per previous note, plan is to d/c with [facility] Friday. STAVE CUTTER spoke with Anjelica and Aura Barksdale with [facility] throughout the day. Confirmed plan. STAVE CUTTER provided Aura with updated contact information for brother Greg. STAVE CUTTER entered room and introduced self and role. Patient had many family in room to support. Patient wanted to discuss dcp with brothers in waiting room. STAVE CUTTER and patient joined brothers Greg and Giuliano in waiting room. Greg reports he's going to be the one staying with her as a caregiver most often. Patient and family report they are familiar with hospice and do not have questions. Plan: patient to d/c home tomorrow morning around 0900, transport with family. [facility] to open in the home at 1000. CM team will continue to follow closely. RICHARD Gimenez
[2023-07-20] MEDS: METHADONE INTENSOL 10 MG/ML ORAL.CONC 12 MG PO (20:22)
--- NOTE | 2023-07-21 00:09 | PC.NURSE ---
Patient requested NG tube to be removed @ 1930, notified MD Petersen who OK'd removal of NG tube. 400cc brownish/green output in suction cannister. Patient placed on 2L humidified NC per patient request/comfort. Pain adequately controlled w/ scheduled PO Morphine & Methadone. SL Zofran given for mild nausea.
--- NOTE | 2023-07-21 01:00 | PC.NURSE ---
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 Patient/family said that her back hit the siderail, no visible injuries noted. Prior to this, patient has been independent in room w/ assistance from family. Notified MD Page, no new orders, will continue to monitor. Bed alarm is on, call light within reach, educated patient/family to call prior to getting OOB.
[2023-07-21] MEDS: MORPHINE 10 MG/0.5 ML ORAL SYRINGE 15 MG PO ×3 (01:27→08:14)
[2023-07-21] MEDS: TETRACAINE/BENZOCAINE/BUTAMBEN (CETACAINE) BOTTLE 1 SPRAY TOP ×3 (01:28→08:14)
[2023-07-21] MEDS: ONDANSETRON 4 MG ODT SL (02:14)
[2023-07-21] MEDS: guaiFENesin Solution 100 MG/5 ML UDC 200 MG PO (03:08)
[2023-07-21] MEDS: BENZOCAINE/MENTHOL 1 LOZ PKT 1 EACH PO (03:22)
[2023-07-21] MEDS: DEXAMETHASONE 4 MG/ML VIAL IV (06:15)
--- NOTE | 2023-07-21 08:16 | PM.DS.1 ---
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 CT scan performed in the ER showed a bowel obstruction. She had recently come off of hospice. Initially I recommended transfer for higher level of care. However both oncology and surgery denied any interventions for her, and she elected for resumption of hospice. An NG tube has been placed, and she continues to have siginificant severe pain today. She was admitted for further pain control, as well as an inability to discharge home due to new NG tube placement. Discharge Providers Provider Date of admission: 07/17/23 17:43 Discharge Date: 07/21/23 Primary care physician: Yaneli Brewer DO Consults: 07/17/23 16:[address] [facility] - Computed Tomography Technician Stat Comment: Hospice care 07/17/23 19:02 Consult to Discharge Planning Routine Comment: Consult to Hospice Referral Urgent Comment: Discharge provider: Keon Gomez DO Summary Hospital Course Discharge Diagnosis: 1. Metastatic hereditary gastric adenocarcinoma with malignant bowel obstruction 2. Severe protein calorie malnutrition 3. Tachycardia Hospital Course: This is a 28 year old female with PMH of gastric adenocarcinoma who was admitted for pain control in the setting of a malignant bowel obstruction. Both oncology and general surgery offered no interventions and recommended hospice. She was placed on fentanyl patch, given SL morphine and ativan for relief. Initially she had NG tube but asked to have it removed for discomfort. She did have it replaced again but only lasted about an hour with it in again. She was discharged home after hospice was arranged for continued pain relief in the setting of maligant bowel obstruction. Time Spent with Patient Time spent: Greater than 30 minutes Exam Vital Signs (past 8 hours): Oxygen Delivery Method Nasal Cannula Oxygen Flow Rate 0 Narrative Exam Narrative: General: fatigued, wanting to sleep, in no acute medical distress Respiratory: Effort & Inspection: normal respiratory effort and able to speak in complete sentences, clear to auscultation bilaterally Objective Labs 07/17/23 13:35 07/17/23 13:35 [facility] Medical History Healthy adult Family History Father Cancer Diabetes mellitus Grandmother Diabetes mellitus Father Cancer Aunt Cancer Social History household members: family and children Smoking Status: Former smoker alcohol intake: current Discharge Plan Discharge Plan Patient Disposition: Hospice - Home Provider Discharge Comment: Continue current medications. Drink small sips of fluids as tolerated. Use ice chips to moisten your mouth. Avoid carbonated beverages (soda). Hospice [facility] will be out to see you tomorrow. Discharge orders & Medications Prescriptions: New octreotide acetate [Sandostatin] 100 mcg/mL Solution 50 mcg SUBCUT TID Qty: 10 0RF guaifenesin 100 mg/5 mL Liquid 200 mg PO Q4HR PRN (Reason: Cough) Qty: 473 0RF lorazepam [Lorazepam Intensol] 2 mg/mL Concentrate 1 mg PO Q2HR PRN (Reason: Anxiety) Qty: 30 0RF fentanyl 12 mcg/hr Patch 72 Hour 12 mcg topical Q72H Qty: 5 0RF Cepacol Sore Throat (jeri-men) 15-2.6 mg Lozenge 1 rolando PO Q1HR PRN (Reason: Sore Throat) Qty: 1 0RF dexamethasone 0.5 mg/5 mL solution 2 mg PO QID Qty: 500 0RF morphine 20 mg/5 mL (4 mg/mL) solution 20 mg PO Q2H PRN (Reason: pain) Qty: 30 0RF Continued scopolamine base 1 mg over 3 days Patch 3 Day 1 patch TRANSDERMAL Q3D PRN (Reason: Nausea And Vomiting) Qty: 10 0RF Patient Comments: took it off Friday night olanzapine 5 mg Tablet,Disintegrating 5 mg PO TID methadone 10 mg/mL concentrate 12 mg PO TID Rx Instructions: 0.2ml + 1ml =12mg (per patients home med list) ondansetron 8 mg Tablet,Disintegrating 8 mg PO Q8H Qty: 30 0RF Discontinued morphine 30 mg tablet 30 mg PO Q6H PRN (Reason: pain) Qty: 120 0RF Rx Instructions: take 1 tablet four times per day for pain fluorouracil 2.5 gram/50 mL Solution 4,000 mg IV NOW Qty: 1 0RF Patient Comments: mid- April Rx Instructions: continuous infusion over 46 hours Senna Plus 8.6-50 mg capsule 2 tab-cap PO BID Qty: 60 0RF dexamethasone 4 mg tablet 4 mg PO DAILY amoxicillin-pot clavulanate 875-125 mg tablet 1 tab PO Q12H 5 Days Qty: 10 0RF doxycycline hyclate 100 mg tablet 100 mg PO BID 5 Days Qty: 10 0RF Follow up/Referrals: Yaneli Brewer DO [Primary Care Provider] - Diet/Activity/Treatments Diet: Clear Liquid Activity: As tolerated Visit Report/Discharge Packet Stand Alone Forms: Patient Portal/API Discharge Data Primary Care Provider: Yaneil Brewer
[2023-07-21] MEDS: METHADONE INTENSOL 10 MG/ML ORAL.CONC 12 MG PO (08:22)
[2023-07-21] MEDS: OCTREOTIDE 100 MCG/ML VIAL 50 MCG SUBCUT (08:22)
--- NOTE | 2023-07-21 10:20 | CM.DPC ---
DCP Continued: WINDING INSPECTOR reviewed EMR. WINDING INSPECTOR spoke with provider and RN about the early d/c home to open with [facility] at 1000 in the home. WINDING INSPECTOR spoke with Anjelica from [facility] of . Confirmed she can place order for home O2 to be delivered today. WINDING INSPECTOR entered room and reintroduced self and role. Patient confirms dcp to go home today and be at the house before 1000. Patient brother here to give her a ride home. Plan: dc home today with family caregiver support. [facility] to open at 1000. CM team will send dc summary when available. CM team will continue to follow as needed. RICHARD Gimenez
--- NOTE | 2023-07-21 10:36 | PC.NURSE ---
Discharge Note Patient A&O, VSS, RA, pain/discomfort appropriately controlled with PRNs. Patient agreeable to discharge home with hospice. Discharge packet reviewed with patient and brother at bedside, all questions/concerns addressed, prescriptions given to patient. Patient able to dress self and pack all belongings. PIV discontinued. Patient taken down via wheelchair to POV.
== END 2023-07-21 09:30 | disposition hospice, home (50) | DRG 240 ==
LOC: ED 15:50 → AC 17:43
PROVIDERS: Admitting Provider Internal Medicine; Emergency Provider Emergency Medicine; PCP Family Medicine; Referring Provider Emergency Medicine; Visit Provider Internal Medicine
DX: C78.6 Secondary malignant neoplasm of retroperitoneum and peritoneum (principal); E43 Unspecified severe protein-calorie malnutrition; C16.9 Malignant neoplasm of stomach, unspecified; C78.00 Secondary malignant neoplasm of unspecified lung; Z87.891 Personal history of nicotine dependence; Z68.20 Body mass index [BMI] 20.0-20.9, adult
CPT/HCPCS: 36415; 74018; 74176; 80053; 85007; 85025; 96374; 96375; 99285; J1100; J1170; J1642; J2060; J2270; J2354; J2405